=== PATIENT | female | born 1990 | race Caucasian/White ===

== ENCOUNTER 2016-11-21 17:38 | Inpatient (IN) | payer OTHER ==
[~2016-11-21] VITALS: Ht 165.1 cm; Wt 68.7 kg
[~2016-11-21 17:38] MED LIST: CLON0.5T3 PO; CMD5 PO; CRG125 PO; LSN5 PO; QUET1TAB34 PO
[2016-11-21] MEDS ORDERED: SODIUM CHLORIDE 0.9% 1000ML 2,000 ML IV STA (18:08)
[2016-11-21] MEDS ORDERED: CEFEPIME IV 2,000 MG in DEXTROSE 5% 100ML 100 ML IV STA (18:08)
[2016-11-21] MEDS ORDERED: VANCOMYCIN INJ 1,700 MG in SODIUM CHLORIDE 0.9% 500ML 500 ML IV STA (18:08)
[2016-11-21] MEDS ORDERED: FRS/40 PO (18:21)
--- NOTE | 2016-11-21 18:26 | EMERGENCY ROOM VISIT NOTE ---
History Report prepared by Domonique: Janey Rivas Under the Supervision of: Dr. Ty Roberson D.O. First contact with patient: 17:56 Chief Complaint: CHEST PAIN Stated Complaint: CHEST PAIN, SOB,DIZZY History of Present Illness The patient is a 26 year old female who presents to the Emergency Room with complaints of intermittent mid chest pain starting yesterday. She describes it to be a stabbing and pinching pain. She denies any activities that worsen or improve the pain. She also reports shortness of breath which occurs with the chest pain. She also started having shakiness, fever, chills, nausea, and vomiting yesterday. Pt denies headache, change in vision, cough, runny nose, abdominal pain, vaginal discharge, diarrhea, urinary symptoms, melena, and open wound/sores. She did not have her menstrual period for the past year. The patient was recently placed on a Z-pack by her PCP for possible URI. She still has one dose left. She has a history of about 10 episodes of fevers, chills, and shakiness occurring in the past 2 months. She denies any blood thinners. The patient had a surgery related to endocarditis in August 2016. She had a tricuspid valve repair in August 2016. She has a history of CHF. She is on Lasix. She also has a history of IV drug use. She had been injecting heroine and bath salts among other drugs. Her last drug use was in March/April 2016. Source of History: patient Onset: yesterday Position: chest (mid) Quality: stabbing, other (pinching) Timing: intermittent Associated Symptoms: + SOB, + chills, + fevers, + nausea, + vomiting, No cough, No diarrhea, No headache, No urinary symptoms Review of Systems See HPI for pertinent positives & negatives. A total of 10 systems reviewed and were otherwise negative. Past Medical & Surgical Medical Problems: (1) Drug withdrawal headache with perceptual disturbance (2) Heroin abuse (3) Hypotension (4) No Known Active Medical Problems (5) Right lower lobe pneumonia (6) SBE (subacute bacterial endocarditis) (7) Syncope Family History Patient reports no known family medical history. Social History Smoking Status: Never Smoker Drug Use: heroin Marital Status: single Housing Status: other Occupation Status: unemployed Current/Historical Medications Scheduled Furosemide (Lasix), 40 MG PO DAILY Quetiapine Fumarate (Seroquel), 100 MG PO QAM Quetiapine Fumarate (Seroquel), 200 MG PO HS Allergies Coded Allergies: No Known Allergies (Unverified , 11/21/16) Physical Exam Vital Signs Date Time Temp Pulse Resp B/P Pulse Ox O2 Delivery O2 Flow Rate FiO2 11/21/16 22:32 129 20 109/76 100 11/21/16 22:30 129 24 93/57 100 Nasal Cannula 2.0 11/21/16 21:13 125 20 124/57 99 Room Air 11/21/16 20:22 135 11/21/16 20:02 Nasal Cannula 3.0 11/21/16 20:00 144 24 129/74 98 Nasal Cannula 3.0 11/21/16 19:35 135 24 105/70 100 Nasal Cannula 3.0 11/21/16 19:30 127 21 97/68 100 Nasal Cannula 3.0 11/21/16 19:15 126 20 101/77 100 Nasal Cannula 3.0 11/21/16 19:00 125 15 112/60 100 Nasal Cannula 3.0 11/21/16 17:48 37.9 124 20 124/82 99 Room Air Physical Exam GENERAL: Sitting up in bed, shaking, chronically disheveled, fidgeting, unable to sit still. Yelling and cursing intermittently EYE EXAM: normal conjunctiva OROPHARYNX: no exudate, no erythema, lips, buccal mucosa, and tongue normal and mucous membranes are dry NECK: supple, no nuchal rigidity, no adenopathy, non-tender LUNGS: Clear to auscultation. Normal chest wall mechanics HEART: Tachycardic rate. S1 normal and S2 normal ABDOMEN: abdomen soft, non-tender, normo-active bowel sounds, no masses, no rebound or guarding. BACK: Back is symmetrical on inspection and there is no deformity, no midline tenderness, no CVA tenderness. SKIN: Bruising over the veins of left upper extremity and feet. No obvious petechiae noted. UPPER EXTREMITIES: upper extremities are grossly normal. LOWER EXTREMITIES: No pitting edema. NEURO EXAM: Normal sensorium, cranial nerves II-XII grossly intact, normal speech, no gross weakness of arms, no gross weakness of legs. Medical Decision & Procedures ER Provider Diagnostic Interpretation: Xray results per the radiologist and my interpretation. CHEST ONE VIEW PORTABLE CLINICAL HISTORY: fever dyspnea COMPARISON STUDY: 05/28/2016 FINDINGS: Interval median sternotomy. Mild cardia megaly. Minimal poorly defined parenchymal infiltrate left base. Lungs otherwise appear clear. Diaphragms smooth. IMPRESSION: Minimal parenchymal infiltrate left base. Electronically signed by: Jony Sky M.D. 11/21/2016 7:01 PM Dictated Date/Time: 11/21/2016 7:00 PM Laboratory Results 11/21/16 18:41 Red Blood Count 4.87, Mean Corpuscular Volume 86.9, Mean Corpuscular Hemoglobin 29.6, Mean Corpuscular Hemoglobin Concent 34.0, Mean Platelet Volume 11.4, Neutrophils (%) (Auto) 81.3, Lymphocytes (%) (Auto) 8.3, Monocytes (%) (Auto) 9.8, Eosinophils (%) (Auto) 0.1, Basophils (%) (Auto) 0.1, Neutrophils # (Auto) 8.77, Lymphocytes # (Auto) 0.90, Monocytes # (Auto) 1.06, Eosinophils # (Auto) 0.01, Basophils # (Auto) 0.01 11/21/16 18:41 Test 11/21/16 18:41 11/21/16 21:05 White Blood Count 10.79 K/uL (4.8-10.8) Red Blood Count 4.87 M/uL (4.2-5.4) Hemoglobin 14.4 g/dL (12.0-16.0) Hematocrit 42.3 % (37-47) Mean Corpuscular Volume 86.9 fL (80-100) Mean Corpuscular Hemoglobin 29.6 pg (25-34) Mean Corpuscular Hemoglobin Concent 34.0 g/dl (32-36) Platelet Count 148 K/uL (130-400) Mean Platelet Volume 11.4 fL (7.4-10.4) Neutrophils (%) (Auto) 81.3 % Lymphocytes (%) (Auto) 8.3 % Monocytes (%) (Auto) 9.8 % Eosinophils (%) (Auto) 0.1 % Basophils (%) (Auto) 0.1 % Neutrophils # (Auto) 8.77 K/uL (1.4-6.5) Lymphocytes # (Auto) 0.90 K/uL (1.2-3.4) Monocytes # (Auto) 1.06 K/uL (0.11-0.59) Eosinophils # (Auto) 0.01 K/uL (0-0.5) Basophils # (Auto) 0.01 K/uL (0-0.2) RDW Standard Deviation 52.1 fL (36.4-46.3) RDW Coefficient of Variation 16.3 % (11.5-14.5) Immature Granulocyte % (Auto) 0.4 % Immature Granulocyte # (Auto) 0.04 K/uL (0.00-0.02) Prothrombin Time 14.6 SECONDS (9.0-12.0) Prothromb Time International Ratio 1.3 (0.9-1.1) Anion Gap 14.0 mmol/L (3-11) Est Creatinine Clear Calc Drug Dose 157.8 ml/min Estimated GFR () > 150.0 Estimated GFR (Non- 132.0 BUN/Creatinine Ratio 14.0 (10-20) Calcium Level 9.1 mg/dl (8.5-10.1) Magnesium Level 1.5 mg/dl (1.8-2.4) Total Bilirubin 1.4 mg/dl (0.2-1) Direct Bilirubin 0.4 mg/dl (0-0.2) Aspartate Amino Transf (AST/SGOT) 21 U/L (15-37) Alanine Aminotransferase (ALT/SGPT) 20 U/L (12-78) Alkaline Phosphatase 121 U/L (45-117) Total Creatine Kinase 163 U/L (26-192) Creatine Kinase MB < 0.5 ng/ml (0.5-3.6) Creatine Kinase MB Ratio (0-3.0) Troponin I < 0.015 ng/ml (0-0.045) Total Protein 7.6 gm/dl (6.4-8.2) Albumin 3.7 gm/dl (3.4-5.0) Urine Color DK YELLOW Urine Appearance CLOUDY (CLEAR) Urine pH 6.0 (4.5-7.5) Urine Specific Ponder 1.018 (1.000-1.030) Urine Protein TRACE (NEG) Urine Glucose (UA) NEG (NEG) Urine Ketones 1+ (NEG) Urine Occult Blood 3+ (NEG) Urine Nitrite NEG (NEG) Urine Bilirubin NEG (NEG) Urine Urobilinogen NEG (NEG) Urine Leukocyte Esterase TRACE (NEG) Urine WBC (Auto) 1-5 /hpf (0-5) Urine RBC (Auto) >30 /hpf (0-4) Urine Hyaline Casts (Auto) 1-5 /lpf (0-5) Urine Epithelial Cells (Auto) >30 /lpf (0-5) Urine Bacteria (Auto) 1+ (NEG) Urine Yeast (Auto) PRESENT (NONE PRSENT) Laboratory results per my review. Medications Administered Medications (Trade) Dose Ordered Sig/Varun Route Start Time Stop Time Status Last Admin Dose Admin Sodium Chloride 2,000 ml @ 999 mls/hr Q2H1M STAT IV 11/21/16 18:08 11/21/16 20:09 DC 11/21/16 18:45 999 MLS/HR Vancomycin HCl 1700 mg/Sodium Chloride 534 ml @ 200 mls/hr ONE STAT IV 11/21/16 18:08 11/21/16 20:48 DC 11/21/16 19:14 200 MLS/HR Cefepime HCl/ Dextrose (Maxipime IV/D5 100ml) 112.5 ml @ 200 mls/hr NOW STAT IV 11/21/16 18:08 11/21/16 18:41 DC 11/21/16 19:15 200 MLS/HR Morphine Sulfate (MoRPHine SULFATE INJ) 6 mg NOW STAT IV 11/21/16 19:04 11/21/16 19:05 DC 11/21/16 19:14 6 MG Lorazepam (Ativan Tab) 0.5 mg NOW STAT SL 11/21/16 19:38 11/21/16 19:39 DC 11/21/16 19:43 0.5 MG Levofloxacin (Levaquin / D5W) 750 mg NOW STAT IV 11/21/16 19:54 11/21/16 19:55 DC 11/21/16 20:42 750 MG Lorazepam 1 mg 1 mg NOW STAT SL 11/21/16 19:54 11/21/16 19:55 DC 11/21/16 19:58 1 MG Magnesium Sulfate/ Prmx (Magnesium Sulfate/Premixed D5W) 100 ml @ 100 mls/hr Q1H IV 11/21/16 20:30 11/21/16 22:29 DC 11/21/16 22:27 100 MLS/HR Diphenhydramine HCl (Benadryl Inj) 50 mg NOW STAT IV 11/21/16 22:19 11/21/16 22:20 DC 11/21/16 22:25 50 MG Procedure Bedside Ultrasound showed no obvious pericardial effusion, IVC completely collapses on inspiration. ECG Indication: chest pain Rate (beats per minute): 124 Rhythm: sinus tachycardia Findings: other (nonspecific T wave abnormalities) Comparison ECG Date: May 29, 2016 Change: T wave abnormalities are new when compared to May 29, 2016. Repeat EKG showed sinus tachycardia, 123 beats per minute, normal axis, t wave inversion in the lateral leads. ED Course ED COURSE: Vital signs were reviewed and showed febrile, tachycardic. The patients medical record was reviewed The above diagnostic studies were performed and reviewed. ED treatments and interventions as stated above. 1755: The patient was evaluated in room A11B. A complete history and physical examination was performed. 1807: Cefepime HCl 2000 mg/Dextrose 112.5 ml @ 200 mls/hr IV, Vancomycin HCl 1700 mg/Sodium Chloride 534 ml @ 200 mls/hr IV, Sodium Chloride 2000 ml @ 999 mls/hr IV 1818: I discussed the patient's case with Dr. Rodriguez, vocational adviser with [facility]. 0: The patient is having difficult breathing. I discussed my findings with the patient and she understands and agrees with the treatment plan. Based on the patients age, coexisting illnesses, exam and lab findings the decision to treat as an inpatient was made. The patient remained stable while under my care. The patient will be evaluated for further management. 1929: The patient is complaining of pain with breathing. 1934: I discussed the patient's case [facility] 1936: Lost two IVs but currently still have one IV. When I recommended a central line, patient flipped out, started cursing and yelling. Patient is refusing a central line. 0: Patient declined IJ femoral and subclavian. 1951: Patient is hyperventilating. She declines any acute pain but complains of being anxious. 2019: Unable to get a PICC line on the left side, attempting on the right side. 2034: 18 tere in her right arm was successfully placed. 2154: IV site has blown. Attempted to reestablish additional IV sites in foot or arms which was unsuccessful. Suggested central line again. Patient states that if attempted she will sign out AMA. 2219: The patient has a rash on the arm where Levaquin was running. She declines any additional sticks/IV attempts. She will be given Benadryl. Patient is currently very agitated and hysterical. Benadryl Inj 50 mg IV. Medical Decision Differential diagnosis includes etiologies such as sepsis, UTI, pneumonia, metabolic, electrolyte abnormalities, cardiac sources, intracerebral event, toxicologic, neurologic, as well as others were entertained. Patient is a 26-year-old female previous IV drug user with a diagnosis of endocarditis that presents to the ER referred in by her primary care doctor for fevers, chills without defined source. She had her tricuspid valve repaired at [place] in August and since then has been doing well. She does complain of intermittent fevers, chills and shakes over the past several months for a total of about 10 times. CBC was unremarkable. BMP was unremarkable as well. Magnesium was slightly low 1.5. T bili and direct bili were slightly elevated 1.4/0.4. Troponin was negative. INR was 1.3. UA was contaminated with epithelial cells greater than 30. Chest x-ray shows enlarged heart with a questionable left lower lobe infiltrate. I discussed case cardiology upon arrival. They will perform an echo in the morning. Initially patient was tachycardic in the 130s. Sepsis alert was called upon presentation. IV team did establish 3 lines. 2 eventually blew. Following this we had one remaining and I recommended a central line; in the patient started yelling and cursing. She completed declined a central line at this time. She notes she has had them in the past and does not want them. Following this I recommended a PICC line/ midline. She was agreeable but after 2 attempts failed. They were able to establish an 18-gauge which eventually blew about an hour later. Following this we attempted to established. The patient became very tearful crying again declined a CBC and any additional attempts. She has already obtained 2 L normal saline along with vancomycin, cefepime and Levaquin. Patient at this time has been admitted to internal medicine. She is currently resting and B1. She was given multiple doses of Ativan for her agitation. She was also given Benadryl for possible reaction to Levaquin on her arm. Mom has been updated at bedside. She was slightly helpful in calming the patient down. I did perform a bedside ultrasound upon presentation which showed a collapsible IVC and no obvious large pericardial effusion. This is why I felt comfortable giving her 2 L normal saline in light of her history of heart failure and Lasix. Patient will need a echo and further evaluation from cardiology as an inpatient. Consults Time Called: 1811 Consulting Physician: Dr. Rodriguez, vocational adviser with [facility] Returned Call: [phone] I discussed the patient's case with Dr. Rodriguez, vocational adviser with [facility]. Additional Consults: Time Called: 1854 Consulted Physician: Dr. Stahl, from [facility] Returned Call: 1934 Additional Comments: I discussed the patient's case with Dr. Stahl, from [facility]. Impression Primary Impression: Sepsis Additional Impressions: Pulmonary infiltrate Questionable endocarditis Critical Care I have personally spent greater than 35 minutes of critical care time in the direct management of this patient. This includes bedside care, interpretation of diagnostic studies, and testing, discussion with consultants, patient, and family members, and other required patient management activities. This 35 minutes is in excess of all separately billable procedures. Scribe Attestation The scribe's documentation has been prepared under my direction and personally reviewed by me in its entirety. I confirm that the note above accurately reflects all work, treatment, procedures, and medical decision making performed by me. Departure Information Dispostion Being Evaluated By Hospitalist Referrals Wolf Kurtz M.D. (PCP) Patient Instructions My [facility] Problem Qualifiers Primary Impression: Sepsis Sepsis type: sepsis due to unspecified organism Qualified Codes: A41.9 - Sepsis, unspecified organism
--- NOTE | 2016-11-21 19:02 | DIAGNOSTIC IMAGING REPORT ---
CHEST ONE VIEW PORTABLE CLINICAL HISTORY: fever dyspnea COMPARISON STUDY: 05/28/2016 FINDINGS: Interval median sternotomy. Mild cardia megaly. Minimal poorly defined parenchymal infiltrate left base. Lungs otherwise appear clear. Diaphragms smooth. IMPRESSION: Minimal parenchymal infiltrate left base. Electronically signed by: Jony Sky M.D. 11/21/2016 7:01 PM Dictated Date/Time: 11/21/2016 7:00 PM
[2016-11-21] MEDS ORDERED: MoRPHine SULFATE 10 MG/ML CARP/VIAL IV STA (19:04)
[2016-11-21 19:05] LABS: BASO % 0.1 %; BASO ABS # 0.01 K/uL (0-0.2); COMPLETE YES; EOS % 0.1 %; HEMATOCRIT 42.3 % (37-47); IG% 0.4 %; LYMPH % 8.3 %; MEAN CELL VOLUME 86.9 fL (80-100); MEAN CORPUSCULAR HEMOGLOBIN 29.6 pg (25-34); MEAN PLATELET VOLUME 11.4 fL (7.4-10.4); MONO % 9.8 %; NEUT % 81.3 %; PLATELET COUNT 148 K/uL (130-400); RED BLOOD COUNT 4.87 M/uL (4.2-5.4); WHITE BLOOD COUNT 10.79 K/uL (4.8-10.8)
[2016-11-21 19:16] LABS: INR 1.3 (0.9-1.1); PROTHROMBIN TIME (PATIENT) 14.6 SECONDS (9.0-12.0)
[2016-11-21 19:36] LABS: ALT/SGPT 20 U/L (12-78); AST/SGOT 21 U/L (15-37); BLOOD UREA NITROGEN 7 mg/dl (7-18); CALCIUM 9.1 mg/dl (8.5-10.1); CARBON DIOXIDE 21 mmol/L (21-32); CHLORIDE 98 mmol/L (98-107); CREATININE 0.53 mg/dl (0.60-1.20); GLUCOSE 85 mg/dl (70-99); MAGNESIUM 1.5 mg/dl (1.8-2.4); POTASSIUM 3.5 mmol/L (3.5-5.1); SODIUM 133 mmol/L (136-145)
[2016-11-21] MEDS ORDERED: LORAZEPAM 0.5 MG TAB SL STA (19:38)
[2016-11-21 19:39] LABS: ALKALINE PHOSPHATASE 121 U/L (45-117)
[2016-11-21] MEDS ORDERED: LORAZEPAM 1 MG TAB SL STA (19:54)
[2016-11-21] MEDS ORDERED: LEVAQUIN 750MG / 150ML D5W IV STA (19:54)
[2016-11-21] MEDS ORDERED: ALUMINUM/MAGNESIUM/SIMETH (MAALOX MAX) 30 ML UDC PO PRN (21:15)
[2016-11-21] MEDS ORDERED: MAGNESIUM HYDROXIDE SUSP 30 ML UDC PO PRN (21:15)
[2016-11-21] MEDS ORDERED: MoRPHine SULFATE 2 MG/ML CARP IV PRN (21:15)
[2016-11-21] MEDS ORDERED: LORAZEPAM 2 MG/ML 1 ML VIAL IV PRN (21:15)
[2016-11-21] MEDS ORDERED: DiphenhydrAMINE HCL 50 MG/ML VIAL IV PRN (21:15)
[2016-11-21] MEDS ORDERED: ONDANSETRON INJ 2 MG/ML 2 ML VIAL IV PRN (21:15)
[2016-11-21] MEDS ORDERED: PROMETHAZINE HCL INJ 12.5 MG in SODIUM CHLORIDE 0.9% 50ML 50 ML IV PRN (21:15)
[2016-11-21] MEDS ORDERED: ZOLPIDEM TARTRATE 5 MG TAB PO PRN (21:15)
[2016-11-21] MEDS ORDERED: VANCOMYCIN CONSULT ACTIVE PRN (21:30)
[2016-11-21] MEDS: MAGNESIUM SULFATE 1GM / D5W 1 GM in PREMIXED IN D5W 100 ML IV SCH ×2 (21:30→22:27)
[2016-11-21 21:40] LABS: URINE APPEARANCE CLOUDY (CLEAR); URINE COLOR DK YELLOW; URINE EPITHELIAL CELL AUTO >30 /lpf (0-5); URINE NITRITE NEG (NEG); URINE SPECIFIC GRAVITY 1.018 (1.000-1.030); UROBILINOGEN NEG (NEG); ZZUR CULT IF INDIC CLEAN CATCH YES
[2016-11-21 21:42] LABS: MANUAL MICROSCOPIC REQUIRED? NO; REVIEW REQ? YES; URINE BILIRUBIN NEG (NEG)
[2016-11-21] MEDS ORDERED: DiphenhydrAMINE HCL 50 MG/ML VIAL IV STA (22:19)
[2016-11-22] VITALS (8 sets, daily range): BP systolic 90–122; BP diastolic 52–69; PULSE 75–128; TEMP 36.3–38.2; O2SAT 95–100; Ht 165.1 cm; Wt 68.7 kg
[2016-11-22] MEDS: QUETIAPINE FUMARATE 200 MG TAB PO SCH ×2 (00:31→20:34)
[2016-11-22] MEDS: VANCOMYCIN INJ 1,000 MG in SODIUM CHLORIDE 0.9% 250ML 250 ML IV SCH ×4 (02:41→21:47)
--- NOTE | 2016-11-22 03:14 | History and Physical ---
History & Physical Date & Time of Service: Nov 22, 2016 at 02:59 Chief Complaint: SBE Primary Care Physician: Wolf Kurtz M.D. History of Present Illness Source: patient The patient is a 26-year-old female who presents to the emergency department with complaint of intermittent mid substernal stabbing and pinching chest pain and shortness of breath that started yesterday. She has also started to have fevers, chills, nausea and vomiting and shakes since yesterday as well. She has 1 dose left of the Z-César started by her PCP recently. She reports approximately 10 episodes of fevers, chills and shakes over the past 2 months. 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 She has a known history of IV drug use, involving heroin and bath salts and other drugs as well. She reports her last or use was in April 2016. She also has history of CHF for which she takes Lasix. Family History Patient reports no known family medical history. Social History Smoking Status: Current Every Day Smoker Smokeless Tobacco Use: No Alcohol Use: none Drug Use: heroin, other (bath salts and other drugs.) Marital Status: single Housing status: other Occupational Status: unemployed Multi-Drug Resistant Organisms History of MDRO: No Allergies Coded Allergies: No Known Allergies (Unverified , 11/21/16) Home Medications Scheduled Furosemide (Lasix), 40 MG PO DAILY Quetiapine Fumarate (Seroquel), 100 MG PO QAM Quetiapine Fumarate (Seroquel), 200 MG PO HS Review of Systems The patient denies lower extremity swelling, vision change, hearing change, sore throat, blood in urine or stool, dysuria, urinary frequency or urgency, memory loss, rash, abnormal bruising or bleeding, imbalance, focal or generalized weakness, numbness or tingling in arms or legs, back or neck pain, night sweats, or allergy symptoms. The review of systems is otherwise negative other than for that already noted above, and at least 10 systems have been reviewed. Physical Exam Vital Signs Date Time Temp Pulse Resp B/P Pulse Ox O2 Delivery O2 Flow Rate FiO2 11/22/16 00:52 37.5 122 22 101/61 98 Nasal Cannula 2.0 11/22/16 00:43 37.6 135 20 109/51 100 11/22/16 00:04 127 11/21/16 22:32 129 20 109/76 100 11/21/16 22:30 129 24 93/57 100 Nasal Cannula 2.0 11/21/16 21:13 125 20 124/57 99 Room Air 11/21/16 20:22 135 11/21/16 20:02 Nasal Cannula 3.0 11/21/16 20:00 144 24 129/74 98 Nasal Cannula 3.0 11/21/16 19:35 135 24 105/70 100 Nasal Cannula 3.0 11/21/16 19:30 127 21 97/68 100 Nasal Cannula 3.0 11/21/16 19:15 126 20 101/77 100 Nasal Cannula 3.0 11/21/16 19:00 125 15 112/60 100 Nasal Cannula 3.0 11/21/16 17:48 37.9 124 20 124/82 99 Room Air The patient is awake, alert and oriented 3, normocephalic and atraumatic, lying in bed and in no acute distress. She intermittently becomes agitated and anxious and hyperventilating while in the ED. HEENT--PERRL, EOMI, mucous membranes and oropharynx dry. Neck--supple, no JVD or bruits, thyroid normal, trachea midline, no adenopathy. Heart-- tachycardic and regular, 3/6 systolic murmur, no rubs or gallops. Lungs--diminished throughout, no respiratory distress, no accessory muscle use. Abdomen--normal bowel sounds and soft, nontender and nondistended, no hernias or masses, no organomegaly. Extremities--no cyanosis, clubbing or edema. There are good distal pulses b/l. Dermatologic--numerous track gee noted on upper extremities bilaterally. Neurologic--cranial nerves II through XII grossly intact, motor and sensory examination normal. Rheumatologic--normal range of motion, nontender, muscles and joints. Psychiatric--intermittently anxious and agitated affect, in particular became fearful when approached the idea of a central venous access due to concerns regarding pain. Diagnostics Laboratory Results Results Past 24 Hours Test 11/21/16 18:41 11/21/16 21:05 Range/Units White Blood Count 10.79 4.8-10.8 K/uL Red Blood Count 4.87 4.2-5.4 M/uL Hemoglobin 14.4 12.0-16.0 g/dL Hematocrit 42.3 37-47 % Mean Corpuscular Volume 86.9 80-100 fL Mean Corpuscular Hemoglobin 29.6 25-34 pg Mean Corpuscular Hemoglobin Concent 34.0 32-36 g/dl Platelet Count 148 130-400 K/uL Mean Platelet Volume 11.4 7.4-10.4 fL Neutrophils (%) (Auto) 81.3 % Lymphocytes (%) (Auto) 8.3 % Monocytes (%) (Auto) 9.8 % Eosinophils (%) (Auto) 0.1 % Basophils (%) (Auto) 0.1 % Neutrophils # (Auto) 8.77 1.4-6.5 K/uL Lymphocytes # (Auto) 0.90 1.2-3.4 K/uL Monocytes # (Auto) 1.06 0.11-0.59 K/uL Eosinophils # (Auto) 0.01 0-0.5 K/uL Basophils # (Auto) 0.01 0-0.2 K/uL RDW Standard Deviation 52.1 36.4-46.3 fL RDW Coefficient of Variation 16.3 11.5-14.5 % Immature Granulocyte % (Auto) 0.4 % Immature Granulocyte # (Auto) 0.04 0.00-0.02 K/uL Erythrocyte Sedimentation Rate 28 0-21 mm/hr Prothrombin Time 14.6 9.0-12.0 SECONDS Prothromb Time International Ratio 1.3 0.9-1.1 Sodium Level 133 136-145 mmol/L Potassium Level 3.5 3.5-5.1 mmol/L Chloride Level 98 98-107 mmol/L Carbon Dioxide Level 21 21-32 mmol/L Anion Gap 14.0 3-11 mmol/L Blood Urea Nitrogen 7 7-18 mg/dl Creatinine 0.53 0.60-1.20 mg/dl Est Creatinine Clear Calc Drug Dose 157.8 ml/min Estimated GFR () > 150.0 Estimated GFR (Non- 132.0 BUN/Creatinine Ratio 14.0 10-20 Random Glucose 85 70-99 mg/dl Calcium Level 9.1 8.5-10.1 mg/dl Magnesium Level 1.5 1.8-2.4 mg/dl Total Bilirubin 1.4 0.2-1 mg/dl Direct Bilirubin 0.4 0-0.2 mg/dl Aspartate Amino Transf (AST/SGOT) 21 15-37 U/L Alanine Aminotransferase (ALT/SGPT) 20 12-78 U/L Alkaline Phosphatase 121 45-117 U/L Total Creatine Kinase 163 26-192 U/L Creatine Kinase MB < 0.5 0.5-3.6 ng/ml Creatine Kinase MB Ratio 0-3.0 Troponin I < 0.015 0-0.045 ng/ml C-Reactive Protein 4.21 0-0.29 mg/dl Total Protein 7.6 6.4-8.2 gm/dl Albumin 3.7 3.4-5.0 gm/dl Urine Color DK YELLOW Urine Appearance CLOUDY CLEAR Urine pH 6.0 4.5-7.5 Urine Specific [place] 1.018 1.000-1.030 Urine Protein TRACE NEG Urine Glucose (UA) NEG NEG Urine Ketones 1+ NEG Urine Occult Blood 3+ NEG Urine Nitrite NEG NEG Urine Bilirubin NEG NEG Urine Urobilinogen NEG NEG Urine Leukocyte Esterase TRACE NEG Urine WBC (Auto) 1-5 0-5 /hpf Urine RBC (Auto) >30 0-4 /hpf Urine Hyaline Casts (Auto) 1-5 0-5 /lpf Urine Epithelial Cells (Auto) >30 0-5 /lpf Urine Bacteria (Auto) 1+ NEG Urine Yeast (Auto) PRESENT NONE PRSENT Microbiology Results 11/21/16 Blood Culture, Received Pending 11/21/16 Blood Culture, Received Pending 11/21/16 Blood Culture, Received Pending 11/21/16 Urine Culture, Received Pending Diagnostic Radiology Patient Name: BRYSON RIVERO Unit Number: [id number] Dictated: 11/21/161899 Transcribed: 11/21/161899 MS Printed Date/Time: [~ rep prt dt]/[~ rep prt tm] [~ rep ct labl] - [~ rep ct ivnm] [facility] [place] [address] Dictated: 11/21/161899 Transcribed: 11/21/161899 MS Printed Date/Time: [~ rep prt dt]/[~ rep prt tm] [~ rep ct labl] - [~ rep ct ivnm] CHEST ONE VIEW PORTABLE CLINICAL HISTORY: fever dyspnea COMPARISON STUDY: 05/28/2016 FINDINGS: Interval median sternotomy. Mild cardia megaly. Minimal poorly defined parenchymal infiltrate left base. Lungs otherwise appear clear. Diaphragms smooth. IMPRESSION: Minimal parenchymal infiltrate left base. Electronically signed by: Jony Sky M.D. 11/21/2016 7:01 PM Dictated Date/Time: 11/21/2016 7:00 PM The status of this report is Signed. Draft = Not yet reviewed or approved by Radiologist. Signed = Reviewed and approved by Radiologist. <AttendingPhy></AttendingPhy> <FamilyPhy>Wolf Kurtz M.D.</FamilyPhy> < PrimaryPhy>Wolf Kurtz M.D.</PrimaryPhy> <UnitNumber>[id number]</UnitNumber > <VisitNumber>[id number]</VisitNumber> <PatientName>BRYSON RIVERO</ PatientName> <DateOfBirth>1990</DateOfBirth> <Location>C.EDB</Location> < ServiceDate>11/21/16</ServiceDate> <MNE>ESINDI</MNE> <OrderingPhy>Ty Roberson DO</OrderingPhy> <OrderingPhyMNE>f rep ord dr bermudez</OrderingPhyMNE> < DictatingPhyMNE>f rep dict dr bermudez</DictatingPhyMNE> <CCListMNE>f rep ct lara</ CCListMNE> <AdmittingPhyMNE>f pt admit dr bermudez</AdmittingPhyMNE> <AttendingPhyMNE >f pt attend dr bermudez</AttendingPhyMNE> <ConsultingPhyMNE>f pt consult dr bermudez</ConsultingPhyMNE> <FamilyPhyMNE>f pt fam dr bermudez</FamilyPhyMNE> <OtherPhyMNE>f pt other dr bermudez</OtherPhyMNE> < PrimaryPhyMNE>f pt prim care dr bermudez</PrimaryPhyMNE> <ReferringPhyMNE>f pt referring dr bermudez</ReferringPhyMNE> EKG EKG shows sinus tachycardia at 124 bpm, increased left atrial size, nonspecific inferior lateral ST-T changes. Impression Assessment and Plan Presumptive SBE--the patient will be admitted to the telemetry unit. She was started on vancomycin IV per renal dosing, cefepime 2 g IV every 8 hours, and levofloxacin 750mg IV every 24 hours. Follow blood culture and sensitivity reports. We'll consult cardiology as patient will need a BANDAR, and in the interim we'll order a 2-D echocardiogram with Dopplers. CHF history--hold Lasix 40 mg by mouth daily, and place on normal saline with potassium chloride 20 mEq at 100 ML's per hour. We'll follow serial PRP and magnesium levels. Psychiatric--continue Seroquel 100 mg by mouth every morning and 200 mg by mouth at bedtime. Heroine/bath salts and other drug abuse--patient reports her last usage was April 2016. 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 Y/N: Yes Risk Level: Moderate Given or contraindicated: SCD's
[2016-11-22] MEDS: ACETAMINOPHEN 325 MG TAB PO PRN (03:37)
[2016-11-22] MEDS: NSS + 20MEQ KCL 1000ML 1,000 ML IV SCH ×2 (03:39→14:13)
[2016-11-22] MEDS: CEFEPIME IV 2,000 MG in DEXTROSE 5% 100ML 100 ML IV SCH ×3 (05:22→20:04)
[2016-11-22] MEDS: LORAZEPAM 2 MG/ML 1 ML VIAL IV PRN ×4 (07:48→21:39)
[2016-11-22] MEDS: QUETIAPINE FUMARATE 100 MG TAB PO SCH (07:49)
[2016-11-22] MEDS: MoRPHine SULFATE 4 MG/ML 1 ML CARP\\VIAL IV PRN ×3 (07:49→19:14)
[2016-11-22] MEDS ORDERED: INFLUENZA ADMINISTRATION CHARGE ONE (08:00)
[2016-11-22] MEDS ORDERED: INFLUENZA VIRUS QUAD VACCINE 0.5 ML SYR IM. ONE (08:00)
[2016-11-22 10:20] LABS: INR 1.4 (0.9-1.1); PARTIAL THROMBOPLASTIN RATIO 1.1; PROTHROMBIN TIME (PATIENT) 15.1 SECONDS (9.0-12.0)
[2016-11-22 10:32] LABS: BASO % 0.2 %; BASO ABS # 0.01 K/uL (0-0.2); COMPLETE YES; EOS % 0.6 %; LYMPH % 20.2 %; LYMPH ABS # 0.94 K/uL (1.2-3.4); MEAN CELL VOLUME 90.2 fL (80-100); MEAN CORPUSCULAR HEMOGLOBIN 29.3 pg (25-34); MEAN CORPUSCULAR HGB CONC 32.4 g/dl (32-36); MEAN PLATELET VOLUME 11.4 fL (7.4-10.4); MONO % 12.3 %; NEUT % 66.7 %; PLATELET COUNT 108 K/uL (130-400); WHITE BLOOD COUNT 4.65 K/uL (4.8-10.8)
[2016-11-22 10:37] LABS: BLOOD UREA NITROGEN 4 mg/dl (7-18); BUN/CREATININE RATIO 9.6 (10-20); CALCIUM 8.2 mg/dl (8.5-10.1); CARBON DIOXIDE 25 mmol/L (21-32); CHLORIDE 107 mmol/L (98-107); CREATININE 0.43 mg/dl (0.60-1.20); GLUCOSE 82 mg/dl (70-99); POTASSIUM 3.2 mmol/L (3.5-5.1); SODIUM 141 mmol/L (136-145)
--- NOTE | 2016-11-22 11:57 | Progress Note ---
Subjective Date of Service: Nov 22, 2016. Subjective Pt evaluation today including: conversation w/ patient, conversation w/ family , physical exam, chart review, lab review, review of studies, review of inpatient medication list Voiding: no voiding problems Very lethargic, however she awake and talk for me , orientated to name, BD and place, she agreed for me to talked to her boyfriend in bedside about her medical conditions No special complaint, Problem List Medical Problems: (1) Left sided chest pain Status: Acute (2) Pneumonia Status: Acute (3) Precordial chest pain Status: Acute (4) Pulmonary infiltrate Status: Acute (5) Sepsis Status: Acute (6) Withdrawal symptoms, drug or narcotic Status: Acute Review of Systems Constitutional: + fatigue, + weakness Respiratory: No cough, No dyspnea at rest, No dyspnea on exertion, No hemoptysis, No problem reported, No see HPI, No shortness of breath, No sputum, No wheezing Cardiac: No PND, No chest pain, No claudication, No edema, No orthopnea, No palpitations, No problem reported, No see HPI Abdomen: + nausea, No GI bleeding, No constipation, No diarrhea, No problem reported, No see HPI, No vomiting Female : No abnormal vaginal bleeding, No dysuria, No hematuria, No incontinence, No problem reported, No see HPI, No urinary frequency, No vaginal discharge Neurologic: No balance problems, No memory loss, No numbness/tingling, No paralysis, No problem reported, No see HPI, No vertigo, No weakness Psychiatric: + substance abuse Skin: No bleeding, No color change, No itch, No new/changing skin lesions, No problem reported, No rash, No see HPI Objective Vital Signs Date Time Temp Pulse Resp B/P Pulse Ox O2 Delivery O2 Flow Rate FiO2 11/22/16 11:19 36.6 75 18 122/69 99 11/22/16 08:10 36.9 81 18 90/52 98 11/22/16 08:00 Nasal Cannula 2.0 11/22/16 05:22 37.4 11/22/16 04:02 Nasal Cannula 2.0 11/22/16 03:30 38.2 113 16 99/53 100 Nasal Cannula 2.0 11/22/16 00:52 37.5 122 22 101/61 98 Nasal Cannula 2.0 11/22/16 00:43 37.6 135 20 109/51 100 11/22/16 00:04 127 11/21/16 22:32 129 20 109/76 100 11/21/16 22:30 129 24 93/57 100 Nasal Cannula 2.0 11/21/16 21:13 125 20 124/57 99 Room Air 11/21/16 20:22 135 11/21/16 20:02 Nasal Cannula 3.0 11/21/16 20:00 144 24 129/74 98 Nasal Cannula 3.0 11/21/16 19:35 135 24 105/70 100 Nasal Cannula 3.0 11/21/16 19:30 127 21 97/68 100 Nasal Cannula 3.0 11/21/16 19:15 126 20 101/77 100 Nasal Cannula 3.0 11/21/16 19:00 125 15 112/60 100 Nasal Cannula 3.0 11/21/16 17:48 37.9 124 20 124/82 99 Room Air Physical Exam General Appearance: WD/WN, no apparent distress, + pertinent finding (lethargic , much older than her age,) Eyes: normal inspection, PERRL, EOMI, sclerae normal ENT: normal ENT inspection, hearing grossly normal, pharynx normal Neck: supple, no adenopathy, thyroid normal, no JVD, no carotid bruits, trachea midline Respiratory/Chest: chest non-tender, normal breath sounds, no respiratory distress, no accessory muscle use, + decreased breath sounds Cardiovascular: regular rate, rhythm, no edema, no gallop, no JVD, no murmur Abdomen: normal bowel sounds, non tender, soft, no organomegaly, no pulsatile mass Extremities: normal range of motion, non-tender, normal inspection, no pedal edema, no calf tenderness, normal capillary refill, pelvis stable 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, no motor/sensory deficits, alert, normal mood/affect Skin: normal color, warm/dry, no rash, + pertinent finding (no obvious track gee) Lymphatic: no adenopathy Laboratory Results Last 24 Hours Test 11/21/16 18:41 11/21/16 21:05 11/22/16 10:00 11/22/16 11:12 White Blood Count 10.79 K/uL 4.65 K/uL Red Blood Count 4.87 M/uL 4.10 M/uL Hemoglobin 14.4 g/dL 12.0 g/dL Hematocrit 42.3 % 37.0 % Mean Corpuscular Volume 86.9 fL 90.2 fL Mean Corpuscular Hemoglobin 29.6 pg 29.3 pg Mean Corpuscular Hemoglobin Concent 34.0 g/dl 32.4 g/dl Platelet Count 148 K/uL 108 K/uL Mean Platelet Volume 11.4 fL 11.4 fL Neutrophils (%) (Auto) 81.3 % 66.7 % Lymphocytes (%) (Auto) 8.3 % 20.2 % Monocytes (%) (Auto) 9.8 % 12.3 % Eosinophils (%) (Auto) 0.1 % 0.6 % Basophils (%) (Auto) 0.1 % 0.2 % Neutrophils # (Auto) 8.77 K/uL 3.10 K/uL Lymphocytes # (Auto) 0.90 K/uL 0.94 K/uL Monocytes # (Auto) 1.06 K/uL 0.57 K/uL Eosinophils # (Auto) 0.01 K/uL 0.03 K/uL Basophils # (Auto) 0.01 K/uL 0.01 K/uL RDW Standard Deviation 52.1 fL 55.4 fL RDW Coefficient of Variation 16.3 % 16.6 % Immature Granulocyte % (Auto) 0.4 % 0.0 % Immature Granulocyte # (Auto) 0.04 K/uL 0.00 K/uL Erythrocyte Sedimentation Rate 28 mm/hr Prothrombin Time 14.6 SECONDS 15.1 SECONDS Prothromb Time International Ratio 1.3 1.4 Sodium Level 133 mmol/L 141 mmol/L Potassium Level 3.5 mmol/L 3.2 mmol/L Chloride Level 98 mmol/L 107 mmol/L Carbon Dioxide Level 21 mmol/L 25 mmol/L Anion Gap 14.0 mmol/L 9.0 mmol/L Blood Urea Nitrogen 7 mg/dl 4 mg/dl Creatinine 0.53 mg/dl 0.43 mg/dl Est Creatinine Clear Calc Drug Dose 157.8 ml/min 180.0 ml/min Estimated GFR () > 150.0 > 150.0 Estimated GFR (Non- 132.0 141.4 BUN/Creatinine Ratio 14.0 9.6 Random Glucose 85 mg/dl 82 mg/dl Calcium Level 9.1 mg/dl 8.2 mg/dl Magnesium Level 1.5 mg/dl 2.0 mg/dl Total Bilirubin 1.4 mg/dl Direct Bilirubin 0.4 mg/dl Aspartate Amino Transf (AST/SGOT) 21 U/L Alanine Aminotransferase (ALT/SGPT) 20 U/L Alkaline Phosphatase 121 U/L Total Creatine Kinase 163 U/L Creatine Kinase MB < 0.5 ng/ml Creatine Kinase MB Ratio Troponin I < 0.015 ng/ml C-Reactive Protein 4.21 mg/dl Total Protein 7.6 gm/dl Albumin 3.7 gm/dl Urine Color DK YELLOW Urine Appearance CLOUDY Urine pH 6.0 Urine Specific [place] 1.018 Urine Protein TRACE Urine Glucose (UA) NEG Urine Ketones 1+ Urine Occult Blood 3+ Urine Nitrite NEG Urine Bilirubin NEG Urine Urobilinogen NEG Urine Leukocyte Esterase TRACE Urine WBC (Auto) 1-5 /hpf Urine RBC (Auto) >30 /hpf Urine Hyaline Casts (Auto) 1-5 /lpf Urine Epithelial Cells (Auto) >30 /lpf Urine Bacteria (Auto) 1+ Urine Yeast (Auto) PRESENT Activated Partial Thromboplast Time 28.1 SECONDS Partial Thromboplastin Ratio 1.1 Bedside Glucose 86 mg/dl Assessment and Plan 26-year-old female admitted on 11/21/2016 because of fever IV drug abuse, and possible sepsis with intermittent mid substernal stabbing and pinching chest pain and shortness of breath Gram-positive bacteremia with sepsis with fevers, chills, nausea and vomiting and shakes upon admit , need to rule out SBE History of endocarditis in August 2016 and underwent a tricuspid valve replacement at [facility]. Known history of IV drug use, involving heroin and bath salts and other drugs last or use was in April 2016. history of CHF for which she takes Lasix. Continue vancomycin IV per renal dosing, cefepime 2 g IV every 8 hours, and levofloxacin 750mg IV every 24 hours. consulted cardiology as patient will need a BANDAR, and in the interim we'll order a 2-D echocardiogram with Dopplers. CHF hx, compensated do not see any decompensation, continue current care of Lasix, Hypokinemia replace potassium Drug abuse and addiction disorder, continue Seroquel 100 mg by mouth every morning and 200 mg by mouth at bedtime. Possible Critical ill GI and DVT prophylaxis covered Continued [facility] stay due to: multiple IV medications needed Discharge planning: uncertain
--- NOTE | 2016-11-22 12:30 | ECHOCARDIOGRAM REPORT ---
*NOTICE TO RECEIVING [employer]Y This information is strictly Confidential and protected under [place] law. [place] law prohibits you from making any further disclosure of this information unless further disclosure is expressly permitted by the written consent of the person to whom it pertains or is authorized by law. A general authorization for the release of medical or other information is not sufficient for this purpose. Hospital accepts no responsibility if the information is made available to any other person, INCLUDING THE PATIENT. Interpretation Summary * Name: BRYSON RIVERO [id number] Study Date: 11/22/2016 11:31 AM BP: 122/69 mmHg * Patient Location: [facility] HR: 75 * : 1990 (M/d/yyyy) Gender: Female Height: 65 in * Age: 26 yrs Ethnicity: CA Weight: 151 lb * Ordering Physician: Cameron Peguero DO, [facility] * Referring Physician: Wolf Kurtz * Performed By: Yessenia Sinha * * Reason For Study: ENDOCARDITIS, FEVER, SOB * BSA: 1.8 m2 * -- Conclusions -- * No obvious vegetations on the visualized valves. * There is nonmobile thickening in the area of the previous * tricuspid valve repair. * The left ventricular wall motion is normal. * Ejection Fraction = 50-55%. * The right ventricle is moderately dilated. * The right ventricular systolic function is moderately reduced. * There is severe tricuspid regurgitation. * There is a trace loculated pericardial effusion adjacent to the right atrium. * There are no echocardiographic indications of cardiac tamponade. * Images were compared directly to those obtained at time of prior study dated 10/28/16 performed at [facility]. * The tricuspid valve appearance is unchanged. * There has been an interval improvement in the noted small to medium pericardial effusion noted on the prior study. * There has been interval resolution of a large left pleural effusion noted on the prior study. Procedure Details * A complete two-dimensional transthoracic echocardiogram was performed (2D, M-mode, Doppler and color flow Doppler). Left Ventricle * The left ventricle is normal in size. * There is normal left ventricular wall thickness. * Left ventricular systolic function is normal. * Ejection Fraction = 50-55%. * The left ventricular wall motion is normal. Right Ventricle * The right ventricle is moderately dilated. * The right ventricular systolic function is moderately reduced. Atria * The left atrial size is normal. * The right atrium is moderately dilated. * There is no evidence of atrial septal defect, but resolution does not allow assessment for a patent foramen ovale. Mitral Valve * The mitral valve is normal. * There is no mitral valve stenosis. * Significant mitral regurgitation is absent. Tricuspid Valve * There is evidence of previous tricuspid valve repair. There is nonmobile thickening in the area of the previous tricuspid valve repair without evidence of vegetation. * There is severe tricuspid regurgitation. * Doppler findings do not suggest pulmonary hypertension. Aortic Valve * The aortic valve is trileaflet. * Aortic stenosis is absent. * There is no significant aortic regurgitation. Pulmonic Valve * The pulmonary valve is not well seen, but the Doppler examination is normal without significant regurgitation or stenosis. Great Vessels * The aortic root and proximal ascending aorta are normal sized. Pericardium/Pleural * There is a trace loculated pericardial effusion adjacent to the right atrium. * There are no echocardiographic indications of cardiac tamponade. Great Vessels * Normal inferior vena cava diameter and respiratory variation suggests normal central venous pressure. * Normal inferior vena cava size and collapsability with sniff indicates a normal right atrial pressure of 3 mmHg Left Ventricular Diastolic Function * The LV diastolic function is normal. MMode 2D Measurements and Calculations IVSd 1.2 cm IVSs 1.3 cm LVIDd 5.0 cm LVIDs 3.2 cm LVPWd 0.85 cm LVPWs 2.1 cm IVS/LVPW 1.4 FS 35.6 % EDV(Teich) 117.3 ml ESV(Teich) 41.2 ml EF(Teich) 64.9 % EDV(cubed) 123.7 ml ESV(cubed) 33.0 ml EF(cubed) 73.3 % % IVS thick 6.0 % % LVPW thick 152.9 % LV mass(C)d 188.2 grams LV mass(C)dI 107.2 grams/m\S\2 LV mass(C)s 216.3 grams LV mass(C)sI 123.2 grams/m\S\2 SV(Teich) 76.1 ml SI(Teich) 43.4 ml/m\S\2 SV(cubed) 90.7 ml SI(cubed) 51.7 ml/m\S\2 ACS 1.4 cm LA dimension 3.5 cm asc Aorta Diam 2.3 cm LVOT diam 1.9 cm LVOT area 3.0 cm\S\2 LVAd ap4 27.0 cm\S\2 LVLd ap4 6.9 cm EDV(MOD-sp4) 90.7 ml EDV(sp4-el) 90.2 ml LVAs ap4 14.3 cm\S\2 LVLs ap4 5.7 cm ESV(MOD-sp4) 30.9 ml ESV(sp4-el) 30.9 ml EF(MOD-sp4) 66.0 % EF(sp4-el) 65.8 % LVAd ap2 25.0 cm\S\2 LVLd ap2 6.7 cm EDV(MOD-sp2) 79.4 ml EDV(sp2-el) 79.1 ml LVAs ap2 12.7 cm\S\2 LVLs ap2 5.5 cm ESV(MOD-sp2) 25.4 ml ESV(sp2-el) 24.8 ml EF(MOD-sp2) 68.0 % EF(sp2-el) 68.7 % LVLd %diff -2.35 % EDV(MOD-bp) 84.6 ml LVLs %diff -2.54 % ESV(MOD-bp) 28.0 ml EF(MOD-bp) 66.9 % SV(MOD-sp4) 59.9 ml SI(MOD-sp4) 34.1 ml/m\S\2 SV(MOD-sp2) 54.0 ml SI(MOD-sp2) 30.8 ml/m\S\2 SV(MOD-bp) 56.6 ml SI(MOD-bp) 32.3 ml/m\S\2 SV(sp4-el) 59.4 ml SI(sp4-el) 33.8 ml/m\S\2 SV(sp2-el) 54.3 ml SI(sp2-el) 31.0 ml/m\S\2 Doppler Measurements and Calculations MV E max nikhil 73.4 cm/sec MV dec time 0.18 sec Ao V2 max 132.7 cm/sec Ao max PG 7.0 mmHg Ao max PG (full) 2.2 mmHg CARLEY(V,A) 2.5 cm\S\2 CARLEY(V,D) 2.5 cm\S\2 LV V1 max PG 4.8 mmHg LV V1 mean PG 2.5 mmHg LV V1 max 109.7 cm/sec LV V1 mean 73.4 cm/sec LV V1 VTI 21.9 cm SV(LVOT) 65.5 ml SI(LVOT) 37.3 ml/m\S\2 PA V2 max 78.5 cm/sec PA max PG 2.5 mmHg PI end-d nikhil 131.3 cm/sec TR max nikhil 235.4 cm/sec
[2016-11-22] MEDS: POTASSIUM CHLR 10 MEQ / WTR 10 MEQ in PREMIXED WATER 100 ML IV SCH ×2 (12:59→15:57)
[2016-11-22] MEDS ORDERED: VANCOMYCIN TROUGH SCH (13:30)
--- NOTE | 2016-11-22 14:45 | Progress Note ---
Progress Note ID Consult Dictated #[id number] A/P: 1. GPC sepsis with h/o IE/ IVDA and TV repair at [facility] 2. Pericardial effusion 3. Fever -Repeat blood cultures, await ID gpc -BANDAR pending -Continue abx for now -UDS -low threshold for transfer -thank you
--- NOTE | 2016-11-22 15:05 | INFECT. DISEASE CONSULTATION ---
DATE OF CONSULTATION: 11/22/2016 DATE OF CONSULTATION: 11/22/2016. REQUESTING PHYSICIAN: Dr. Santos. HISTORY OF PRESENT ILLNESS: This is a 26-year-old female who was admitted after she had a sudden onset of substernal chest pain associated with shortness of breath that began 1 day prior to admission. She also complained of subjective fevers and chills prior to admission. Her T-max since admission is 38.2 degrees. She was seen by her PCP for these symptoms and given Z-CHRISTIAN; however, she had no significant relief in 1 day and subsequently presented to the Emergency Room. She was placed empirically on levofloxacin, cefepime and vancomycin. 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 At that time, she was transferred to [facility] and underwent a repair of her tricuspid valve. I do not see any blood cultures from that time. However, blood cultures were obtained in the Emergency Room last night and are now growing gram positive cocci in 3/3 sets. She is currently afebrile and appears to be tolerating antibiotics well. She does have a history of IV drug abuse. A urine drug screen was not performed on this admission; however per the H\T\P her last drug use was April of 2016. I do not know if she is on any outpatient antibiotic regimen. On my examination today, she is lethargic and I am unable to arouse her for review of systems. She does appear comfortable. She currently is afebrile. She did have a transthoracic echocardiogram done on this admission which showed a loculated pericardial effusion without tamponade and thickened tricuspid valve repair with severe tricuspid regurgitation. No clear vegetation was identified. A BANDAR is pending. She did have an initial leukocytosis of 10, which has improved to 4.6. Her sed rate is mildly elevated at 28. PAST MEDICAL HISTORY: Significant for infectious endocarditis in August 2016 resulting in tricuspid valve repair. FAMILY HISTORY: Noncontributory. SOCIAL HISTORY: Significant for tobacco use, heroin use, bath salts and additional illegal drugs. There is no history of alcohol use. ALLERGIES: She has no known drug allergies. MEDICATIONS: Include Protonix, subQ heparin, levofloxacin, Seroquel, cefepime, vancomycin, lorazepam, Tylenol, milk of magnesia, Benadryl, Maalox, Ambien, Zofran, morphine. PHYSICAL EXAMINATION: VITAL SIGNS: T-max is 38.2, current temperature is 36.6, pulse 75, respiratory rate 18, blood pressure 122/69, oxygen saturation is 99% on 2 liters. GENERAL: She is lethargic and unarousable on my examination. It is unclear when she last had any pain medication; however she was lethargic earlier today. HEART: Regular. ABDOMEN: Nondistended. There is no edema bilaterally. SKIN: Without rash. LUNGS: Clear bilaterally. LABORATORY STUDIES: CBC today reveals a white blood cell count of 4.6, hemoglobin 12, hematocrit 37, platelets are 108. The sed rate is 28 in the ER yesterday. Chemistry panel today reveals a sodium of 141, potassium 3.2, chloride 107, bicarbonate 25, BUN 4, creatinine 0.4, glucose is 86. Bilirubin was elevated yesterday at 1.4. LFTs are within normal limits. CRP is elevated at 4.2. Cardiac enzymes were negative. A urinalysis had only 1-5 WBCs. Blood cultures from the 20th x3 sets are all growing gram positive cocci which it yet to be identified. A chest x-ray was performed in the Emergency Room and did not show any effusion but there was minimal infiltrate at the left base. ASSESSMENT AND PLAN: 1. Gram-positive septicemia. 2. Fever strongly suspicious for recurrent endocarditis, especially with history of endocarditis and tricuspid valve repair. She has a loculated pericardial effusion. She will be continued on broad spectrum antibiotics. Repeat blood cultures will be done today. A UDS will be ordered. She may certainly need cardiovascular surgery evaluation and I would have a low threshold to transfer this patient to [facility] where she received her previous surgical care. Otherwise, we will follow along with you. Thank you for this consultation.
--- NOTE | 2016-11-22 15:49 | Pharmacy Progress Note ---
Pharmacy Antibiotic Consult Date of Service: Nov 22, 2016. Pharmacy Dosing Scope Pharmacy is consulted to initiate vancomycin IV dosing therapy, order appropriate labs and adjust drug dose/frequency. Subjective * The patient is a 26 year old female admitted on Nov 21, 2016 at 20:13 with concern of bacterial endocarditis. * She has a history of IVDA and a endocarditis (for which she was treated at [facility] with a tricuspid valve replacement in 08/2016). * She was recently started on azithromycin without resolution of s/s. * She does currently smoke. Objective Height (Feet): 5 Height (Inches): 5.00 Weight (Kilograms): 68.400 Lab Results (24hrs): Laboratory Tests Test 11/21/16 18:41 11/22/16 10:00 BUN/Creatinine Ratio 14.0 9.6 Blood Urea Nitrogen 7 mg/dl 4 mg/dl Creatinine 0.53 mg/dl 0.43 mg/dl White Blood Count 10.79 K/uL 4.65 K/uL Red Blood Count 4.87 M/uL 4.10 M/uL Hemoglobin 14.4 g/dL 12.0 g/dL Hematocrit 42.3 % 37.0 % Mean Corpuscular Volume 86.9 fL 90.2 fL Mean Corpuscular Hemoglobin 29.6 pg 29.3 pg Mean Corpuscular Hemoglobin Concent 34.0 g/dl 32.4 g/dl Platelet Count 148 K/uL 108 K/uL Mean Platelet Volume 11.4 fL 11.4 fL Neutrophils (%) (Auto) 81.3 % 66.7 % Lymphocytes (%) (Auto) 8.3 % 20.2 % Monocytes (%) (Auto) 9.8 % 12.3 % Eosinophils (%) (Auto) 0.1 % 0.6 % Basophils (%) (Auto) 0.1 % 0.2 % Neutrophils # (Auto) 8.77 K/uL 3.10 K/uL Lymphocytes # (Auto) 0.90 K/uL 0.94 K/uL Monocytes # (Auto) 1.06 K/uL 0.57 K/uL Eosinophils # (Auto) 0.01 K/uL 0.03 K/uL Basophils # (Auto) 0.01 K/uL 0.01 K/uL Micro Results: Item Value Date Time Blood Culture - Preliminary Resulted 11/21/16 1834 Blood Gram Positive Cocci Blood Culture - Preliminary Resulted 11/21/16 1841 Blood Gram Positive Cocci Blood Culture - Preliminary Resulted 11/21/16 1851 Blood Gram Positive Cocci Urine Culture Received 11/21/16 2105 Urine , Clean Catch Pending Blood Culture Ordered 11/22/16 1445 Blood Pending Blood Culture Ordered 11/22/16 1445 Blood Pending Recent Pertinent Medications Item Value Date Time Cefepime HCl 1999 112.5 ml @ 200 mls/hr 11/21/16 1808 mg/Dextrose NOW STAT/IV ONE TIME DOSE 11/21/16 1915 Cefepime HCl 1999 112.5 ml @ 200 mls/hr 11/22/16 0400 mg/Dextrose Q8H/IV CONTINUES 11/22/16 1207 Levofloxacin 750 mg 11/21/161953 (Levaquin / D5W) NOW STAT/IV ONE TIME DOSE 11/21/162041 Levofloxacin 750 150 ml @ 100 mls/hr 11/22/16 2000 mg/Prmx Q24H/IV CONTINUES Assessment & Plan Assessment: * 26 y/o with suspected bacterial endocarditis, now with gram positive cocci bacteremia * broad-spectrum ABX started including vancomycin * ID consulted Plan: * Continue broad-spectrum antibiotics with vancomycin, levofloxacin, and cefepime at this time Vancomycin (pharmacy consult) * Loading dose: 1700 mg IV X 1 dose * Maintenance dose: 1000 mg IV every 6 hours * Trough level today prior to the 14:00 dose = 17.5mcg/mL * therapeutic, continue same dosing regimen * re-check trough tomorrow to ensure patient is not accumulating at such a small dosing interval Levofloxacin (not a pharmacy consult) * continue 750mg IV every 24 hours * no dose adj for CrCl above 50mL/min Cefepime (not a pharmacy consult) * continue 2000 mg IV every 8 hours * no dose adj for CrCl above 60mL/min Of Note: * May consider the addition of Rifampin + gentamicin for infective endocarditis with a prosthetic valve with GPC likely causative organism empirically. * If MSSA - consider Nafcillin + rifampin + gentamicin * If MRSA - consider vancomycin + rifampin + gentamicin * May consider de-escalation of one of the gram negative agents (levofloxacin or cefepime) since all cultures growing gram positive organisms Pharmacy will continue to follow and will adjust dose/frequency as necessary. Thank you
[2016-11-22 19:20] LABS: BENZODIAZEPINE, URINE NEG (NEG); COCAINE,URINE NEG (NEG); PHENCYCLIDINE, URINE NEG (NEG)
[2016-11-22] MEDS ORDERED: LEVOFLOXACIN / D5W 750 MG in PREMIXED IN D5W 150 ML IV SCH (20:00)
[2016-11-22] MEDS: HEPARIN SOD 5000 UNIT/0.5 ML CARP SQ SCH (20:35)
--- NOTE | 2016-11-22 22:31 | CARDIOLOGY CONSULTATION ---
DATE OF CONSULTATION: 11/22/2016 HISTORY OF PRESENT ILLNESS: Nancy Hernandez is a 26-year-old female seen in cardiology consultation per the request of Dr. Stahl for evaluation of fever as well as gram-positive bacteremia in a patient with a history of tricuspid valve endocarditis. 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 Per review of her past records, including her discharge summary from [facility], dated 08/13/2016, she had been initially treated with 6 weeks of methicillin and tricuspid valve surgery had been discussed in [place], but patient had previously declined surgery. She has a history of septic emboli to her lungs and pulmonary embolism and was on Coumadin at one point. She underwent a tricuspid valve repair performed in [facility] on 08/09/2016. Her postoperative course included a right-sided hemopneumothorax and required a chest tube placement. She had recently seen her primary care provider and had fevers and chills and recently was provided a course of azithromycin as an outpatient. Yesterday, she had seen her primary care provider and had recurrent fevers and was subsequently referred to our Emergency Room. Three of three blood cultures have yielded gram-positive cocci. The patient has been placed on appropriate antibiotics, as supervised by infectious disease, including cefepime and vancomycin. Her most recent temperature is 37.0. Her temperature max today was 38.2. Through most of the day, she was somewhat lethargic. During my assessment of the patient at 7:30 p.m. on 11/22/2016, she was restless, and tearful. She was awake and conversant. Her subjective complaints include chest discomfort under her left as well as her right breast. This has apparently been a chronic complaint, as per reviewing her records, including dating back to prior to her valve surgery, even when she was hospitalized here in May. She also notes mid-thoracic back pain, which is making it difficult for her to be comfortable. It is noted that she was readmitted for fevers at [facility] last month in October,. A transthoracic echocardiogram was performed then, but no repeat BANDAR. PAST MEDICAL HISTORY: 1. Methicillin-sensitive Staph aureus endocarditis. 2. Hepatitis C virus. 3. 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 4. History of IV drug use. 5. History of non-ST segment elevation myocardial infarction due to Ritalin overdose. 6. History of pulmonary thromboembolism. 7. History of septic embolism to the lungs. 8. History of severe residual tricuspid regurgitation. PAST SURGICAL HISTORY: 1. section. 2. Cholecystectomy. 3. Cardiac catheterization, 07/26/2016. 4. Tonsillectomy. 5. Complex tricuspid valve repair with a 26-mm Tri-Ad ring as well as surgical closure of a patent foramen ovale, subsequent right hemopneumothorax. SOCIAL HISTORY: She continues to smoke cigarettes, half pack per day for 14 years. Drug use, as noted above. She states she has not used drugs since April, although her toxicology test today was positive for marijuana and amphetamines. FAMILY HISTORY: History of heart disease in maternal grandmother, stroke in maternal grandfather. The patient has a history of being incarcerated. REVIEW OF SYSTEMS: The patient notes mid-back and low back pain, chest discomfort. Otherwise, negative. ALLERGIES: No known drug allergies. HOME MEDICINES: 1. Furosemide 40 mg daily. 2. Seroquel 100 mg a.m. and 200 mg p.m. LABORATORY DATA: Temperature 37.0, temperature max was 38.2 earlier today. Heart rate 94, blood pressure 99/63 and pulse oximetry 100% on 2 liters nasal cannula. GENERAL APPEARANCE: Awake and oriented, tearful, restless. NECK: No bruits. CARDIOVASCULAR: Tachycardic. No murmurs. ABDOMEN: Soft, nontender. EXTREMITIES: No edema, no evidence of peripheral embolic phenomenon in her fingers or her hands, patient describes pain in her mid-thoracic spine, no focal pain was elicited on palpation. DIAGNOSTIC DATA: Blood cultures as outlined above. WBC is 4.65, erythrocyte sedimentation rate 28. A transthoracic echocardiogram performed today and reviewed personally revealed no obvious vegetations on the visualized valves. There is a non-mobile thickening of the area of the previous tricuspid valve repair. The left ventricular ejection fraction is normal. The right ventricle is moderately dilated. The right ventricular systolic function is moderately reduced. There is severe tricuspid regurgitation. There is a trace loculated pericardial effusion adjacent to the right atrium. There are no echocardiographic indications of tamponade. Images were compared directly to those obtained at the time of prior study, dated on 10/28/[address] [facility]. The tricuspid valve appearance is unchanged. There has been interval improvement in the noted [id number] sized pericardial effusion noted on the prior study. There has been interval resolution of the large left pleural effusion noted on the prior study. FINAL IMPRESSION: A 26-year-old female. Fevers with gram-positive cocci on three of three blood cultures in setting of prior endocarditis, for which patient underwent tricuspid valve repair. She has severe residual tricuspid valve regurgitation and right heart failure, although she is well compensated from a volume standpoint. DISCUSSION AND RECOMMENDATIONS: Recommend continued antibiotics. Infectious disease input is noted and appreciated. Recommend proceeding with a transesophageal echocardiogram to further evaluate for evidence of recurrent endocarditis. The patient does also have a subjective history of back pain, and I think that a thoracic or lumbar discitis is also a possibility, as this could go hand in hand with the same kind of infectious presentation. The patient will likely require imaging for this. I am not certain that she will be able to stay still enough for an MRI, so, a CT may be necessary. I will discuss this with the hospitalist service tomorrow. DOC
[2016-11-23] VITALS (16 sets, daily range): BP systolic 75–114; BP diastolic 40–77; PULSE 74–99; TEMP 36.5–37; O2SAT 94–100
[2016-11-23] MEDS: VANCOMYCIN INJ 1,000 MG in SODIUM CHLORIDE 0.9% 250ML 250 ML IV SCH ×4 (02:05→20:08)
[2016-11-23] MEDS: NSS + 20MEQ KCL 1000ML 1,000 ML IV SCH ×2 (02:46→08:28)
[2016-11-23] MEDS: MoRPHine SULFATE 4 MG/ML 1 ML CARP\\VIAL IV PRN ×2 (02:47→13:27)
[2016-11-23] MEDS: CEFEPIME IV 2,000 MG in DEXTROSE 5% 100ML 100 ML IV SCH (04:12)
[2016-11-23] MEDS: LORAZEPAM 2 MG/ML 1 ML VIAL IV PRN ×2 (05:54→13:27)
[2016-11-23 07:21] LABS: BASO % 0.5 %; BASO ABS # 0.02 K/uL (0-0.2); COMPLETE YES; EOS % 2.4 %; HEMATOCRIT 35.2 % (37-47); LYMPH % 41.1 %; LYMPH ABS # 1.71 K/uL (1.2-3.4); MEAN CELL VOLUME 88.9 fL (80-100); MEAN CORPUSCULAR HGB CONC 32.7 g/dl (32-36); MEAN PLATELET VOLUME 11.4 fL (7.4-10.4); MONO % 23.6 %; NEUT % 32.4 %; PLATELET COUNT 121 K/uL (130-400); RED BLOOD COUNT 3.96 M/uL (4.2-5.4); WHITE BLOOD COUNT 4.16 K/uL (4.8-10.8)
[2016-11-23 07:36] LABS: INR 1.3 (0.9-1.1); PARTIAL THROMBOPLASTIN RATIO 0.9; PROTHROMBIN TIME (PATIENT) 14.1 SECONDS (9.0-12.0)
[2016-11-23 07:54] LABS: BLOOD UREA NITROGEN 3 mg/dl (7-18); CALCIUM 8.5 mg/dl (8.5-10.1); CARBON DIOXIDE 23 mmol/L (21-32); CHLORIDE 112 mmol/L (98-107); CREATININE 0.44 mg/dl (0.60-1.20); GLUCOSE 78 mg/dl (70-99); MAGNESIUM 1.6 mg/dl (1.8-2.4); POTASSIUM 3.8 mmol/L (3.5-5.1); SODIUM 145 mmol/L (136-145)
[2016-11-23] MEDS: HEPARIN SOD 5000 UNIT/0.5 ML CARP SQ SCH ×2 (08:27→21:00)
[2016-11-23] MEDS: QUETIAPINE FUMARATE 100 MG TAB PO SCH (08:28)
[2016-11-23] MEDS ORDERED: MAGNESIUM SULFATE 1GM / D5W 1 GM in PREMIXED IN D5W 100 ML IV ONE ×2 (09:30→10:30)
[2016-11-23] MEDS ORDERED: FENTANYL CITRATE INJ 50 MCG/1 ML 2 ML VIAL ONE (09:37)
[2016-11-23] MEDS ORDERED: MIDAZOLAM HCL 1 MG/ML 2ML VIAL ONE (09:37)
[2016-11-23] MEDS ORDERED: LIDOCAINE HCL 2% 2 ML VIAL (20MG/ML) ONE (09:40)
[2016-11-23] MEDS ORDERED: PROPOFOL IV EMULSION 10 MG/ML 20 ML VIAL IV ONE (09:40)
--- NOTE | 2016-11-23 09:46 | Family Medicine Progress Note ---
Progress Note Date of Service Nov 23, 2016. Subjective Pt evaluation today including: conversation w/ patient, physical exam, chart review, lab review, review of studies Pain: 8/10 Back Pain, Upper Lumbar Spine Voiding: no voiding problems Patient is a 26 year old female that presents with chest pain. Patient still having moderate chest pain but acutely complains about back pain today at bedside that is 8/10, sharp, upper lumbar spine, and does not radiate. Negative CVA Tenderness. Constitutional: No chills, No fever, No sweats Respiratory: No cough, No shortness of breath, No wheezing Cardiovascular: + chest pain Abdomen: No nausea, No pain, No vomiting Musculoskeletal: + problem reported (Back Pain) Female : No dysuria Psychiatric: + substance abuse Medications Current Inpatient Medications Medications (Trade) Dose Ordered Sig/Varun Route Start Time Stop Time Status Last Admin Dose Admin Vancomycin HCl 1 ea 1 ea UD PRN N/A 11/21/16 21:30 12/21/16 21:29 Cefepime HCl/ Dextrose (Maxipime IV/D5 100ml) 112.5 ml @ 200 mls/hr Q8H IV 11/22/16 04:00 01/03/17 03:59 11/23/16 04:12 200 MLS/HR Quetiapine Fumarate (seroQUEL TAB) 100 mg QAM PO 11/22/16 09:00 12/22/16 08:59 11/22/16 07:49 100 MG Quetiapine Fumarate (seroQUEL TAB) 200 mg HS PO 11/21/16 21:00 12/21/16 20:59 11/22/16 20:34 200 MG Lorazepam (Ativan Inj) 0.5-1MG IV PRN ANXIETY Q4H PRN IV 11/21/16 21:15 12/21/16 21:14 11/23/16 05:54 1 MG Acetaminophen (Tylenol Tab) 650 mg Q4H PRN PO 11/21/16 21:15 12/21/16 21:14 11/22/16 03:37 650 MG Magnesium Hydroxide (Milk Of Magnesia Susp) 30 ml Q6H PRN PO 11/21/16 21:15 12/21/16 21:14 Diphenhydramine HCl (Benadryl Inj) 25 mg Q4H PRN IV 11/21/16 21:15 12/21/16 21:14 11/22/16 19:19 25 MG Al Hydrox/Mg Hydrox/ Simethicone 15 ml 15 ml Q4H PRN PO 11/21/16 21:15 12/21/16 21:14 Promethazine HCl/ Sodium Chloride (Phenergan Inj/ Nss 50ml) 50.5 ml @ 202 mls/hr Q4H PRN IV 11/21/16 21:15 12/21/16 21:14 11/22/16 21:39 202 MLS/HR Zolpidem Tartrate (Ambien Tab) 5 mg HSZ PRN PO 11/21/16 21:15 12/21/16 21:14 11/22/16 21:37 5 MG Ondansetron HCl (Zofran Inj) 4 mg Q6H PRN IV 11/21/16 21:15 12/21/16 21:14 Morphine Sulfate (MoRPHine SULFATE INJ) 2 mg Q2H PRN IV 11/21/16 21:15 12/05/16 21:14 Morphine Sulfate 4 mg 4 mg Q2H PRN IV 11/21/16 21:15 12/05/16 21:14 11/23/16 02:47 4 MG Levofloxacin 750 mg/Prmx 150 ml @ 100 mls/hr Q24H IV 11/22/16 20:00 01/03/17 19:59 11/22/16 21:35 100 MLS/HR Vancomycin HCl 1000 mg/Sodium Chloride 270 ml @ 125 mls/hr Q6H IV 11/22/16 02:00 01/03/17 01:59 11/23/16 08:27 125 MLS/HR Potassium Chloride/Sodium Chloride 1,000 ml @ 100 mls/hr Q10H IV 11/22/16 03:13 12/22/16 03:12 11/23/16 08:28 100 MLS/HR Pantoprazole Sodium/Syringe (Protonix Inj/ Syringe) 10 ml @ 5 mls/min DAILY@11 IV 11/23/16 11:00 12/23/16 10:59 Heparin Sodium (Porcine) 5000 unit 5,000 unit Q12 SQ 11/22/16 21:00 12/22/16 20:59 Magnesium Sulfate/ Prmx (Magnesium Sulfate/Premixed D5W) 100 ml @ 100 mls/hr TODAY@0930 ONCE IV 11/23/16 09:30 11/23/16 10:29 Objective Vital Signs Date Time Temp Pulse Resp B/P Pulse Ox O2 Delivery O2 Flow Rate FiO2 11/23/16 08:01 36.8 88 16 95/66 96 Room Air 11/23/16 06:13 37.0 94 18 114/77 99 Room Air 11/23/16 04:02 Room Air 11/23/16 03:32 37.0 94 18 114/77 99 Room Air 11/23/16 00:02 Room Air 11/22/16 23:31 36.9 91 18 105/68 98 Room Air 11/22/16 20:04 Nasal Cannula 2.0 11/22/16 19:26 36.3 128 26 106/65 95 Room Air 11/22/16 16:00 Nasal Cannula 2.0 11/22/16 15:18 37.0 94 16 99/63 100 Nasal Cannula 2.0 11/22/16 12:00 Nasal Cannula 2.0 11/22/16 11:19 36.6 75 18 122/69 99 Physical Exam General Appearance: WD/WN, no apparent distress Respiratory/Chest: chest non-tender, lungs clear, normal breath sounds Cardiovascular: regular rate, rhythm, no edema, no gallop, no murmur Abdomen: normal bowel sounds, non tender, soft Neurologic/Psychiatric: alert, oriented x 3 Notes: MSK: Back Pain with palpation of vertebral body of L3/L4 region. Non erythematous, no swelling, no drainage, no visible deformities. Laboratory Results Results Past 24 Hours Test 11/22/16 10:00 11/22/16 11:12 11/22/16 14:15 11/23/16 06:30 Range/Units White Blood Count 4.65 4.16 4.8-10.8 K/uL Red Blood Count 4.10 3.96 4.2-5.4 M/uL Hemoglobin 12.0 11.5 12.0-16.0 g/dL Hematocrit 37.0 35.2 37-47 % Mean Corpuscular Volume 90.2 88.9 80-100 fL Mean Corpuscular Hemoglobin 29.3 29.0 25-34 pg Mean Corpuscular Hemoglobin Concent 32.4 32.7 32-36 g/dl Platelet Count 108 121 130-400 K/uL Mean Platelet Volume 11.4 11.4 7.4-10.4 fL Neutrophils (%) (Auto) 66.7 32.4 % Lymphocytes (%) (Auto) 20.2 41.1 % Monocytes (%) (Auto) 12.3 23.6 % Eosinophils (%) (Auto) 0.6 2.4 % Basophils (%) (Auto) 0.2 0.5 % Neutrophils # (Auto) 3.10 1.35 1.4-6.5 K/uL Lymphocytes # (Auto) 0.94 1.71 1.2-3.4 K/uL Monocytes # (Auto) 0.57 0.98 0.11-0.59 K/uL Eosinophils # (Auto) 0.03 0.10 0-0.5 K/uL Basophils # (Auto) 0.01 0.02 0-0.2 K/uL RDW Standard Deviation 55.4 54.6 36.4-46.3 fL RDW Coefficient of Variation 16.6 16.6 11.5-14.5 % Immature Granulocyte % (Auto) 0.0 0.0 % Immature Granulocyte # (Auto) 0.00 0.00 0.00-0.02 K/uL Prothrombin Time 15.1 14.1 9.0-12.0 SECONDS Prothromb Time International Ratio 1.4 1.3 0.9-1.1 Activated Partial Thromboplast Time 28.1 24.3 21.0-31.0 SECONDS Partial Thromboplastin Ratio 1.1 0.9 Sodium Level 141 145 136-145 mmol/L Potassium Level 3.2 3.8 3.5-5.1 mmol/L Chloride Level 107 112 98-107 mmol/L Carbon Dioxide Level 25 23 21-32 mmol/L Anion Gap 9.0 10.0 3-11 mmol/L Blood Urea Nitrogen 4 3 7-18 mg/dl Creatinine 0.43 0.44 0.60-1.20 mg/dl Est Creatinine Clear Calc Drug Dose 180.0 175.9 ml/min Estimated GFR () > 150.0 > 150.0 Estimated GFR (Non- 141.4 140.3 BUN/Creatinine Ratio 9.6 7.0 10-20 Random Glucose 82 78 70-99 mg/dl Calcium Level 8.2 8.5 8.5-10.1 mg/dl Magnesium Level 2.0 1.6 1.8-2.4 mg/dl Bedside Glucose 86 70-90 mg/dl Vancomycin Level Trough 17.5 SEE COMMENT mcg/ml Test 11/23/16 09:16 Range/Units Microbiology Results 11/22/16 Blood Culture, Received Pending 11/22/16 Blood Culture, Received Pending Assessment and Plan Patient is a 26 year old IVDU that presented yesterday on 11/22 to the ED with chest pain, fever, and chills 1) Bacterial Endocarditis - History of Tricuspid Repair at [facility] [place] / Endocarditis IVDU Aug 2016 - 12/02 Blood Cultures, Growing Staph Aureus - TTE in ED on 11/22: Loculated pericardial effusion improved since 10/28, Thickened tricuspid valve repair with severe tricuspid regurgitation - Dr. Peguero recommends BANDAR - Urine Tox positive for Urine opiates, Urine methamphetamine/ amphertiamine, and Urine Marijuana - IV Vancomycin as per renal dosing protocol, IV Cefepime 2g IV q8, IV Levofloxacin 750mg q24h - Troponin in ED < 0.015 2) Back Pain - Questionable for Thoracic / Lumbar Discitis or possible Epidural Abscess - Lumbar Spine CT and Thoracic Spine CT ordered 3) Hypomagnesemia - Magnesium 1.6 this am - Replete with 1gm Magnesium IV 4) History of CHF - Lasix 40mg PO - Potassium Cl 20 mEq 5) Psych - Anxiety - Ativan q4h PRN - Depression - Seroquel 100mg qAM, 200mg qHS - Sleep - Ambien 5mg PRN Sleep 6) Pain Control - Morphine 4mg q2h PRN 7) GI Prophylaxis - Protonix 8) DVT Prophylaxis - Heparin
[2016-11-23 09:50] LABS: PREG INTERNAL NEGATIVE QC NEG CLEAR BACKGROUND; PREG INTERNAL POSITIVE QC POS CONTROL LINE
[2016-11-23] MEDS ORDERED: EpHEDrine SULFATE INJ 50 MG/ML AMP IV PRN (10:30)
[2016-11-23] MEDS ORDERED: FUROSEMIDE 40 MG TAB PO ONE (10:30)
[2016-11-23] MEDS ORDERED: ATROPINE SULFATE 0.1 MG/ML 5ML SYR IV PRN (10:30)
--- NOTE | 2016-11-23 11:00 | Cardiology Procedure Brief Nt ---
Preliminary Cardiology Note Procedure Date Nov 23, 2016. Pre-Procedure Diagnosis fever, bacteremia, r/o endocarditis Post-Procedure Diagnosis small vegetation suspected Procedure(s) Performed BANDAR Cyber Legal Advisor Cameron Peguero DO Tur[employer] Lathe Machinist(s) BARBER Espinosa Estimated Blood Loss none Preliminary Findings The aortic valve, mitral valve, and pulmonic valve were all normal without vegetation. There is severe tricuspid regurgitation. There is a small linear echodensity measuring 0.5 cm x 0.2 cm on the right atrial aspect of the (lateral portion) of the tricuspid valve annuloplasty ring suspicious for vegetation. No evidence of abscess. Recommendations 3/3 blood cultures overnight = Staph aureus, sensitivities pending. Recommend proceeding with imaging of the thoracic and lumbars spine given subjective back pain to evaluate for discitis. Doubt pt would tolerate staying still long enough for MRI therefore will proceed with CT . Continue IV antibiotics. I plan to have images of her BANDAR transferred to CT [place] [facility] [place] review. Patient's volume status is stable, no clinical volume overload , rhythm stable with SR and sinus tachycardia. Specimens none Anesthesia Versed 2 mg IV, lidocaine 80 mg IV, fentanyl 200 mcg IV, propofol 150 mg IV Complication(s) None Disposition PCU
[2016-11-23] MEDS: PANTOprazole INJ 40 MG in SYRINGE 0 ML IV SCH (11:04)
--- NOTE | 2016-11-23 11:38 | Progress Note ---
Subjective Date of Service: Nov 23, 2016. Subjective Pt evaluation today including: conversation w/ patient, physical exam, chart review, lab review pt seen in follow up for IE. spoke with cardio this am. had BANDAR today, pt is seen by me after BANDAR and is lethargic after sedation. BANDAR results with abnml findings on TV repair, all cultures from ER with S. aureus (sensitivities pending). She is lethargic on exam but more awake than yesterday. UDS + for multiple substances including opiates, meth and thc. She denies fevers on my exam, she denies cp. She is on multiple abx and tolerating well. no vomiting or diarrhea. She has complained of back pain as well however, she does not mention on my exam, ct scan of spine is pending to r/o osteo. Per cardio she was last seen in [place] when [place] [facility] [place] was diagnosed with MSSA, treated with long course of nafcillin and then underwent TV repeair. She also has h/o septic pulm emboli as well. She is currently on vanco pending final culture results. repeat cultures done yesterday and are pending. She is afebrile. wbc 4. Problem List Medical Problems: (1) Left sided chest pain Status: Acute (2) Pneumonia Status: Acute (3) Precordial chest pain Status: Acute (4) Pulmonary infiltrate Status: Acute (5) Sepsis Status: Acute (6) Withdrawal symptoms, drug or narcotic Status: Acute Objective Vital Signs Date Time Temp Pulse Resp B/P Pulse Ox O2 Delivery O2 Flow Rate FiO2 11/23/16 11:16 36.5 85 20 95/57 97 Room Air 11/23/16 11:00 36.7 85 20 87/53 94 Room Air 11/23/16 10:45 82 18 93/43 96 Nasal Cannula 11/23/16 10:35 86 18 92/44 95 Nasal Cannula 11/23/16 10:25 96 18 90/46 99 Nasal Cannula 3 11/23/16 10:25 85 18 92/40 99 Nasal Cannula 3 11/23/16 10:20 96 18 90/46 99 Nasal Cannula 3 11/23/16 10:15 95 18 75/40 99 Nasal Cannula 3 11/23/16 10:10 96 18 95/45 99 Nasal Cannula 3 11/23/16 10:05 99 18 94/40 99 Nasal Cannula 3 11/23/16 10:00 97 18 85/48 99 Nasal Cannula 3 11/23/16 09:55 92 18 105/71 99 Nasal Cannula 3 11/23/16 09:50 91 18 112/61 100 Nasal Cannula 3 11/23/16 08:01 36.8 88 16 95/66 96 Room Air 11/23/16 06:13 37.0 94 18 114/77 99 Room Air 11/23/16 04:02 Room Air 11/23/16 03:32 37.0 94 18 114/77 99 Room Air 11/23/16 00:02 Room Air 11/22/16 23:31 36.9 91 18 105/68 98 Room Air 11/22/16 20:04 Nasal Cannula 2.0 11/22/16 19:26 36.3 128 26 106/65 95 Room Air 11/22/16 16:00 Nasal Cannula 2.0 11/22/16 15:18 37.0 94 16 99/63 100 Nasal Cannula 2.0 11/22/16 12:00 Nasal Cannula 2.0 Physical Exam General Appearance: + pertinent finding (lethargic but arousable, seen after BANDAR) Neck: supple Respiratory/Chest: lungs clear, normal breath sounds, no respiratory distress Cardiovascular: regular rate, rhythm, no edema Abdomen: soft Extremities: no pedal edema Neurologic/Psychiatric: + pertinent finding (lethargic) Skin: normal color Laboratory Results Item Value Date Time Blood Culture - Preliminary Resulted 11/21/16 1834 Blood Staphylococcus Aureus Blood Culture - Preliminary Resulted 11/21/16 1841 Blood Staphylococcus Aureus Blood Culture - Preliminary Resulted 11/21/16 1851 Blood Staphylococcus Aureus Last 24 Hours Test 11/22/16 14:15 11/23/16 00:00 11/23/16 06:30 Vancomycin Level Trough 17.5 mcg/ml Urine Test NEG White Blood Count 4.16 K/uL Red Blood Count 3.96 M/uL Hemoglobin 11.5 g/dL Hematocrit 35.2 % Mean Corpuscular Volume 88.9 fL Mean Corpuscular Hemoglobin 29.0 pg Mean Corpuscular Hemoglobin Concent 32.7 g/dl Platelet Count 121 K/uL Mean Platelet Volume 11.4 fL Neutrophils (%) (Auto) 32.4 % Lymphocytes (%) (Auto) 41.1 % Monocytes (%) (Auto) 23.6 % Eosinophils (%) (Auto) 2.4 % Basophils (%) (Auto) 0.5 % Neutrophils # (Auto) 1.35 K/uL Lymphocytes # (Auto) 1.71 K/uL Monocytes # (Auto) 0.98 K/uL Eosinophils # (Auto) 0.10 K/uL Basophils # (Auto) 0.02 K/uL RDW Standard Deviation 54.6 fL RDW Coefficient of Variation 16.6 % Immature Granulocyte % (Auto) 0.0 % Immature Granulocyte # (Auto) 0.00 K/uL Prothrombin Time 14.1 SECONDS Prothromb Time International Ratio 1.3 Activated Partial Thromboplast Time 24.3 SECONDS Partial Thromboplastin Ratio 0.9 Sodium Level 145 mmol/L Potassium Level 3.8 mmol/L Chloride Level 112 mmol/L Carbon Dioxide Level 23 mmol/L Anion Gap 10.0 mmol/L Blood Urea Nitrogen 3 mg/dl Creatinine 0.44 mg/dl Est Creatinine Clear Calc Drug Dose 175.9 ml/min Estimated GFR () > 150.0 Estimated GFR (Non- 140.3 BUN/Creatinine Ratio 7.0 Random Glucose 78 mg/dl Calcium Level 8.5 mg/dl Magnesium Level 1.6 mg/dl Assessment and Plan (1) Infectious endocarditis Assessment & Plan: she will continue on iv abx, stop gnr coverage. follow repeat cultures, pending. await sensitivities, h/o mssa. no pulm complaints now but has h/o septic pulm emboli, may be of benefit to ct chest as well. awaiting imaging of back r/o osteo. Spoke with cardio, will contact [facility] [place] regarding ? additional surgical care (2) Staphylococcus aureus septicemia Continued [facility] stay due to: multiple IV medications needed Discharge planning: uncertain
--- NOTE | 2016-11-23 12:24 | DIAGNOSTIC IMAGING REPORT ---
LUMBAR SPINE CT CT DOSE: HISTORY: Back pain Back Pain, Endocarditis, IV Drug User TECHNIQUE: Multiaxial CT images of the lumbar spine were performed and reformatted in the sagittal and coronal plane without the use of contrast. COMPARISON: None. FINDINGS: No fractures. No subluxation. Paraspinal soft tissues are unremarkable. Vertebral column shows no abnormality. There are no bony destructive changes. IMPRESSION: Negative CT of the lumbar spine Electronically signed by: Jony Sky M.D. 11/23/2016 12:23 PM Dictated Date/Time: 11/23/2016 12:21 PM
--- NOTE | 2016-11-23 12:24 | DIAGNOSTIC IMAGING REPORT ---
CT THORACIC SPINE WITHOUT CT DOSE: 1353.43 mGy.cm CLINICAL HISTORY: Back Pain, Endocarditis, IV Drug User TECHNIQUE: Helical images were acquired in the transverse plane. Sagittal and coronal reformatted images were acquired. COMPARISON STUDY: None. FINDINGS: No fractures or subluxations are visualized. There are no destructive lesions to indicate osteomyelitis. CT scanning is insensitive for the detection of epidural disease. There are postsurgical changes of a midline sternotomy. There are bilateral pulmonary airspace opacities. There is nonspecific retrosternal soft tissue, likely postsurgical. There are small bilateral pleural effusions. The heart appears enlarged. IMPRESSION: 1. Cardiomegaly, small bilateral pleural effusions, and bilateral pulmonary airspace opacities 2. No thoracic spine fractures or subluxations. No destructive lesions are visualized. 3. It should be noted that CT scanning is insensitive for the detection of epidural disease. Electronically signed by: Will Judd M.D. 11/23/2016 12:22 PM Dictated Date/Time: 11/23/2016 12:19 PM
--- NOTE | 2016-11-23 12:35 | Anesthesiology Progress Note ---
Anesthesia Post Op Note Date & Time Nov 23, 2016 at 12:35 Vital Signs Pain Intensity: 8 Vital Signs Past 12 Hours Date Time Temp Pulse Resp B/P Pulse Ox O2 Delivery O2 Flow Rate FiO2 11/23/16 11:45 36.5 78 18 96/57 94 Room Air 11/23/16 11:16 36.5 85 20 95/57 97 Room Air 11/23/16 11:00 36.7 85 20 87/53 94 Room Air 11/23/16 10:45 82 18 93/43 96 Nasal Cannula 11/23/16 10:35 86 18 92/44 95 Nasal Cannula 11/23/16 10:25 96 18 90/46 99 Nasal Cannula 3 11/23/16 10:25 85 18 92/40 99 Nasal Cannula 3 11/23/16 10:20 96 18 90/46 99 Nasal Cannula 3 11/23/16 10:15 95 18 75/40 99 Nasal Cannula 3 11/23/16 10:10 96 18 95/45 99 Nasal Cannula 3 11/23/16 10:05 99 18 94/40 99 Nasal Cannula 3 11/23/16 10:00 97 18 85/48 99 Nasal Cannula 3 11/23/16 09:55 92 18 105/71 99 Nasal Cannula 3 11/23/16 09:50 91 18 112/61 100 Nasal Cannula 3 11/23/16 08:01 36.8 88 16 95/66 96 Room Air 11/23/16 06:13 37.0 94 18 114/77 99 Room Air 11/23/16 04:02 Room Air 11/23/16 03:32 37.0 94 18 114/77 99 Room Air Notes Mental Status: alert / awake / arousable, participated in evaluation Pt Amnestic to Procedure: Yes Nausea / Vomiting: adequately controlled Pain: adequately controlled Airway Patency, RR, SpO2: stable & adequate BP & HR: stable & adequate Hydration State: stable & adequate Anesthetic Complications: no major complications apparent
[2016-11-23] MEDS ORDERED: HYDROmorphone INJ 1 MG/ML SYR IV STA (14:48)
--- NOTE | 2016-11-23 14:56 | Cardiology Follow-Up ---
Subjective General Date of Service: Nov 23, 2016. Chief Complaint: follow up fever, bacteremia Pt evaluation today including: conversation w/ patient, physical exam History of Present Illness The patient is a 26 year old female seen in follow up. BANDAR this am suggest possible vegetation on TV annuloplasty ring, possible small MV vegetation. Patient with episodes of hypotension overnight. No objective temperature, but did have subjective fever. CT of the spine revealed no evidence of ostial myelitis, but this study is insufficient for epidural infection/evaluation of discs for discitis. Allergies Coded Allergies: No Known Allergies (Unverified , 11/21/16) Social History Smoking Status: Current Every Day Smoker Hx Tobacco Use In Past Year?: Yes Hx Alcohol Use - Type And Amou: Yes Hx Substance Use - Type And Am: Yes Problem List Medical Problems: (1) Left sided chest pain Status: Acute (2) Pneumonia Status: Acute (3) Precordial chest pain Status: Acute (4) Pulmonary infiltrate Status: Acute (5) Sepsis Status: Acute (6) Withdrawal symptoms, drug or narcotic Status: Acute Physical Exam Vital Signs Last Vital Signs Documentation Date Time Temp Pulse Resp B/P Pulse Ox O2 Delivery O2 Flow Rate FiO2 11/23/16 12:30 36.5 93 20 99/62 97 Room Air 11/23/16 10:25 3 Physical Exam Constitutional: Level of Distress: NAD Head: normocephalic Neck: supple, trachea midline Lungs: Auscultation: no wheezing, no rales/crackles Cardiovascular: Heart Auscultation: RRR, II/ RON Abdomen: Bowel Sounds: diminished Inspection & Palpation: non-distended Extremities: no edema, no varicosities Assessment and Plan Assessment and Plan Impression: 26-year-old female 1. 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 Subjective back pain 3. Severe residual tricuspid valve regurgitation, moderate pulmonary hypertension, PA systolic pressure likely 55-60 mmHg based on a cardiogram today , with findings of RV dysfunction and RV volume overload. Plan: Overall, the patient is compensated from heart failure standpoint, but given her findings on echocardiogram, and watch her closely from a volume status standpoint as she is receiving a significant amount of IV fluids from maintenance fluids as well as from IV antibiotics, and eventually, she may become volume overloaded is not watched carefully, looking ahead, we may need to start diuretic to keep her intake and output even. At the present time, recommend continued medication therapy for possible recurrent endocarditis. There is no evidence of gross abscess. 2 possible infectious foci were noted on her transesophageal echocardiogram, one on the tricuspid valve annuloplasty ring, and one on the mitral valve. The mitral valve abnormality was very small, but not there on prior studies for review of records from [place]. CT imaging was insufficient to rule out discitis. She has had back pain, may need to consider alternative imaging to rule out second source of infection. Present continue appropriate antibiotics. Infectious disease input is noted and appreciated. Plan for repeat transesophageal echocardiogram within short- term, probably early next week. No indication for CT surgery intervention as present, but if there are progressive changes on short term follow up BANDAR while on appropriate antibiotic therapy , that may change. Continue SQ heparin for DVT prophylaxis. Laboratory Results Last 24 Hours Test 11/23/16 00:00 11/23/16 06:30 11/23/16 13:30 Urine Test NEG White Blood Count 4.16 K/uL Red Blood Count 3.96 M/uL Hemoglobin 11.5 g/dL Hematocrit 35.2 % Mean Corpuscular Volume 88.9 fL Mean Corpuscular Hemoglobin 29.0 pg Mean Corpuscular Hemoglobin Concent 32.7 g/dl Platelet Count 121 K/uL Mean Platelet Volume 11.4 fL Neutrophils (%) (Auto) 32.4 % Lymphocytes (%) (Auto) 41.1 % Monocytes (%) (Auto) 23.6 % Eosinophils (%) (Auto) 2.4 % Basophils (%) (Auto) 0.5 % Neutrophils # (Auto) 1.35 K/uL Lymphocytes # (Auto) 1.71 K/uL Monocytes # (Auto) 0.98 K/uL Eosinophils # (Auto) 0.10 K/uL Basophils # (Auto) 0.02 K/uL RDW Standard Deviation 54.6 fL RDW Coefficient of Variation 16.6 % Immature Granulocyte % (Auto) 0.0 % Immature Granulocyte # (Auto) 0.00 K/uL Prothrombin Time 14.1 SECONDS Prothromb Time International Ratio 1.3 Activated Partial Thromboplast Time 24.3 SECONDS Partial Thromboplastin Ratio 0.9 Sodium Level 145 mmol/L Potassium Level 3.8 mmol/L Chloride Level 112 mmol/L Carbon Dioxide Level 23 mmol/L Anion Gap 10.0 mmol/L Blood Urea Nitrogen 3 mg/dl Creatinine 0.44 mg/dl Est Creatinine Clear Calc Drug Dose 175.9 ml/min Estimated GFR () > 150.0 Estimated GFR (Non- 140.3 BUN/Creatinine Ratio 7.0 Random Glucose 78 mg/dl Calcium Level 8.5 mg/dl Magnesium Level 1.6 mg/dl
[2016-11-23] MEDS ORDERED: HALOPERIDOL LACTATE 5 MG/ML 1 ML VIAL ONE (16:54)
--- NOTE | 2016-11-23 19:10 | TEE ---
*NOTICE TO RECEIVING CONSTITUTION PARTY AGENCY This information is strictly Confidential and protected under [place] law. [place] law prohibits you from making any further disclosure of this information unless further disclosure is expressly permitted by the written consent of the person to whom it pertains or is authorized by law. A general authorization for the release of medical or other information is not sufficient for this purpose. Hospital accepts no responsibility if the information is made available to any other person, INCLUDING THE PATIENT. Interpretation Summary * Name: BRYSON RIVERO [id number] Study Date: 11/23/2016 09:14 AM BP: 90/46 mmHg * Patient Location: .2T\S\S238\S\2 HR: 96 * : 1990 (M/d/yyyy) Gender: Female Height: 65 in * Age: 26 yrs Ethnicity: [place] Weight: 150 lb * Ordering Physician: Cameron Peguero DO, [facility] * Referring Physician: Wolf Kurtz * Performed By: Yessenia Sinha * * Reason For Study: Endocarditis * BSA: 1.8 m2 * -- Conclusions -- * There is a very subtle linear,mobile echodensity on the atrial aspect of the posterior leaflet of the mitral valve compatible with possible early vegetation (159 degrees, image 11/105). * There is trace mitral regurgitation. * There is evidence of previous tricuspid valve repair with annuloplasty ring. * There is a 0.5 cm x 0.2 cm mobile echodensity on the atrial aspect of the annuloplasty ring adjacent to the right ventricular lateral wall. * There is no evicend of abscess. * There is severe tricuspid regurgitation. * Moderate pulmonary hypertension is present. * The calculated right ventricular systolic pressure is 56 mm Hg. * The LV Ejection Fraction = 50-55%. * The right ventricular systolic function is moderately reduced. * The right ventricle is moderately dilated. Procedure Details * BANDAR Probe #2 utilized for procedure. * The study was performed in Cardiac Catheterization Lab. * Time out was conducted by the physician, nurse, and tissue technologist with positive identification of patient and procedure. * Informed consent for Transesophageal Echocardiogram was obtained prior to the procedure. * An intravenous line was placed. A topical anesthetic agent was used for oropharangeal anesthesia. A bite block was inserted. * Sedation performed by the anesthesia department. * The patient's vital signs, including blood pressure, heart rate, pulse oximetry and cardiac rhythm were monitored throughout the procedure . * Fentanyl 200 mcg was administered for procedural sedation. * Midazolam 2 mg administered for sedation. * 150mcg Propofol were administered. * A multifrequency, multiplane transesopheageal echocardiographic endoscope was inserted and manipulated in the standard fashion to achieve multiplane views. * The transesophageal probe was passed without difficulty. * The usual views were obtained; basal, mid-esophageal, transgastric and aortic views. * The patient tolerated the procedure well without evidence of orophangeal or esophageal trauma. * Contrast injection with agitated saline was performed. Left Ventricle * The left ventricle is normal in size. * There is normal left ventricular wall thickness. * Left ventricular systolic function is normal. * Ejection Fraction = 50-55%. * The left ventricular wall motion is normal. Right Ventricle * The right ventricle is moderately dilated. * The right ventricular systolic function is moderately reduced. Atria * The left atrial size is normal. * No thrombus is detected in the left atrial appendage. * No left atrial mass or thrombus visualized. * The right atrium is moderately dilated. * The interatrial septum is intact with no evidence for an atrial septal defect. Mitral Valve * The mitral valve anatomy is normal. * There is a very subtle linear , mobile echodensity on the atrial aspect of the posterior leaflet of the mitral valve compatible with possible early vegetation (159 degrees, imat 11/105). * There is no mitral valve stenosis. * There is trace mitral regurgitation. Tricuspid Valve * There is evidence of previous tricuspid valve repair with annuloplasty ring. There is a 0.5 cm x 0.2 cm mobile echodensity on the atrial aspect of the annuloplasty ring adjacent to the right ventricular lateral wall. There is no evicend of abscess. * There is no tricuspid stenosis. * There is severe tricuspid regurgitation. * Moderate pulmonary hypertension is present. The calculated right ventricular systolic pressure is 56 mm Hg. Aortic Valve * The aortic valve is trileaflet. * There is no aortic valvular vegetation. * No hemodynamically significant valvular aortic stenosis. * No aortic regurgitation is present. Pulmonic Valve * The pulmonic valve is not well seen, but is grossly normal. * There is no pulmonic valvular stenosis. * There is no significant pulmonary regurgitation. Great Vessels * The aortic root is normal size. Pericardium * There is no pericardial effusion. Pulmonic Valve * There is no vegetation on the pulmonic valve. Doppler Measurements and Calculations TR max nikhil 376.9 cm/sec
[2016-11-23] MEDS ORDERED: VANCOMYCIN TROUGH SCH (19:30)
[2016-11-23] MEDS: QUETIAPINE FUMARATE 200 MG TAB PO SCH (20:02)
[2016-11-23] MEDS: HYDROmorphone INJ 1 MG/ML SYR IV PRN (20:09)
--- NOTE | 2016-11-23 20:44 | Pharmacy Progress Note ---
Pharmacy Progress Note Date of Service Nov 23, 2016. Progress Note REGARDING IV VANCOMYCIN: * Repeat trough level 16.4mcg/mL = therapeutic * continue same dose/interval * If MRSA is growing, may consider increasing dose of vancomycin and goal trough closer to 20mcg/mL Thank you for engaging the clinical pharmacy consult service in the care of this patient. Please let us know if we can be of further assistance.
[2016-11-23] MEDS ORDERED: METHADONE HCL 5 MG TAB PO SCH (21:00)
[2016-11-24] VITALS (10 sets, daily range): BP systolic 91–128; BP diastolic 61–76; PULSE 72–88; TEMP 36.3–36.9; O2SAT 94–98
[2016-11-24] MEDS: LORAZEPAM 2 MG/ML 1 ML VIAL IV PRN ×3 (00:30→20:27)
[2016-11-24] MEDS: HYDROmorphone INJ 1 MG/ML SYR IV PRN ×6 (00:31→22:16)
[2016-11-24] MEDS: VANCOMYCIN INJ 1,000 MG in SODIUM CHLORIDE 0.9% 250ML 250 ML IV SCH ×2 (01:19→10:03)
[2016-11-24 07:03] LABS: INR 1.2 (0.9-1.1); PARTIAL THROMBOPLASTIN RATIO 1.1; PROTHROMBIN TIME (PATIENT) 13.2 SECONDS (9.0-12.0)
[2016-11-24 07:24] LABS: BLOOD UREA NITROGEN 3 mg/dl (7-18); BUN/CREATININE RATIO 8.5 (10-20); CALCIUM 8.5 mg/dl (8.5-10.1); CARBON DIOXIDE 30 mmol/L (21-32); CHLORIDE 108 mmol/L (98-107); CREATININE 0.39 mg/dl (0.60-1.20); GLUCOSE 83 mg/dl (70-99); MAGNESIUM 1.6 mg/dl (1.8-2.4); POTASSIUM 3.6 mmol/L (3.5-5.1); SODIUM 144 mmol/L (136-145)
[2016-11-24 07:57] LABS: HEMATOCRIT 35.4 % (37-47); MEAN CELL VOLUME 90.5 fL (80-100); MEAN CORPUSCULAR HEMOGLOBIN 29.4 pg (25-34); MEAN CORPUSCULAR HGB CONC 32.5 g/dl (32-36); MEAN PLATELET VOLUME 11.4 fL (7.4-10.4); PLATELET COUNT 125 K/uL (130-400); RED BLOOD COUNT 3.91 M/uL (4.2-5.4); WHITE BLOOD COUNT 3.75 K/uL (4.8-10.8)
[2016-11-24 07:58] LABS: BASO % 0.5 %; BASO ABS # 0.02 K/uL (0-0.2); COMPLETE YES; EOS % 2.9 %; IG% 0.3 %; LYMPH % 56.8 %; LYMPH ABS # 2.13 K/uL (1.2-3.4); MONO % 10.9 %; NEUT % 28.6 %
--- NOTE | 2016-11-24 08:50 | Pharmacy Progress Note ---
Pharmacy Antibiotic Prog Note Date of Service: Nov 24, 2016. Subjective: The patient is currently receiving Vancomycin 1,000mg (15mg/kg) IV every 6 hours. The patient is currently on day # 4 of Vancomycin IV therapy. Objective: Height (Feet): 5 Height (Inches): 5.00 Weight (Kilograms): 68.400 Levels: Item Value Date Time Vancomycin Level Trough 17.5 mcg/ml 11/22/16 1415 Vancomycin Level Trough 16.4 mcg/ml 11/23/16 1950 Lab Results (24hrs): Laboratory Tests Test 11/24/16 06:20 11/24/16 06:30 BUN/Creatinine Ratio 8.5 Blood Urea Nitrogen 3 mg/dl Creatinine 0.39 mg/dl White Blood Count 3.75 K/uL Red Blood Count 3.91 M/uL Hemoglobin 11.5 g/dL Hematocrit 35.4 % Mean Corpuscular Volume 90.5 fL Mean Corpuscular Hemoglobin 29.4 pg Mean Corpuscular Hemoglobin Concent 32.5 g/dl Platelet Count 125 K/uL Mean Platelet Volume 11.4 fL Neutrophils (%) (Auto) 28.6 % Lymphocytes (%) (Auto) 56.8 % Monocytes (%) (Auto) 10.9 % Eosinophils (%) (Auto) 2.9 % Basophils (%) (Auto) 0.5 % Neutrophils # (Auto) 1.07 K/uL Lymphocytes # (Auto) 2.13 K/uL Monocytes # (Auto) 0.41 K/uL Eosinophils # (Auto) 0.11 K/uL Basophils # (Auto) 0.02 K/uL Micro Results: PATIENT: BRYSON RIVERO LOC: [place] U # : [id number] AGE/SX: 26/F ROOM: [facility] REG : 11/21/[address]: Moe Payton D.O. : 1990 BED: 1 DIS : STATUS: ADM IN TLOC: SPEC #: [id number] NBA: 11/21/16 STATUS: COMP REQ #: [id number] RECD: 11/21/[address]: Ty Roberson DO SOURCE: BLOOD ENTR: 11/21/[address] [facility] [address]: Wolf Kurtz M.D. [facility]: ORDERED: BLOOD CULTURE Procedure Result Verified Site BLD CULT Final 11/24/16-0803 Organism 1 STAPHYLOCOCCUS AUREUS SENS SENSITIVITY TO FOLLOW SENSITIVITY RESULT INDICATES A METHICILLIN RESISTANT STAPH. AUREUS. PHONED TO DEYVI MORRIS ON 11/24/16 AT 0727 BY El Buckner. Results were verbalized back to ANDER. RESULTS WERE ALSO CALLED TO [facility] INFECTION CONTROL ANSWERING MACHINE ON 11/24/16 BY ANDER. Phoned results to KIMBERLI MIMS on 11/22/16 at 1109 by Gisselle Mena. Results were verbalized back to ALEJANDRO. 1. STAPHYLOCOCCUS AUREUS Target Route Dose RX AB Cost M.I.C. IQ ------ ----- ------ -- ------ -------- - ------ TRIMET/SULFA S <=0.5/ 9.5 * OXACILLIN R * >2 VANCOMYCIN S 1 ERYTHROMYCIN R >4 TETRACYCLINE S <=4 CLINDAMYCIN S <=0.5 DAPTOMYCIN S <=0.5 RIFAMPIN S <=1 S = SENSITIVE I = INTERMEDIATE R = RESISTANT Assessment & Plan: Assessment: * 26 y/o with infective endocarditis - culture positive for MRSA * Early/small vegetation detected on mitral valve * Pt currently being treated with Vancomycin 15mg/kg IV Q6hrs which has yielded therapeutic drug levels x 2 (17.5mcg/ml & 16.4mcg/ml). However, since organism growing is MRSA, will slightly increase dose to maintain a tough level closer to 20mcg/ml. * Pt with [place] valve * ID consulted Plan: * Continue vancomycin, increase dose slightly to maintain trough level closer to 20mcg/ml to ensure adequate drug penetration * Increase Maintenance dose to 1,100 mg (16mg/kg) IV every 6 hours * Trough tomorrow @ 1400 (this will be before the 5th dose of new dosing) * re-check trough tomorrow to ensure patient is not accumulating at such a small dosing interval Pharmacy will continue to follow and will adjust dose/frequency as necessary. Thank you
[2016-11-24] MEDS: HEPARIN SOD 5000 UNIT/0.5 ML CARP SQ SCH ×2 (09:00→20:35)
[2016-11-24] MEDS ORDERED: MAGNESIUM SULFATE 1GM / D5W 1 GM in PREMIXED IN D5W 100 ML IV ONE (09:30)
[2016-11-24] MEDS: NICOTINE 14 MG/24 HR TDSY TD SCH (10:04)
[2016-11-24] MEDS: QUETIAPINE FUMARATE 100 MG TAB PO SCH (10:05)
[2016-11-24] MEDS: FUROSEMIDE 40 MG TAB PO SCH (10:05)
[2016-11-24] MEDS: PANTOprazole INJ 40 MG in SYRINGE 0 ML IV SCH (10:05)
[2016-11-24] MEDS: METHADONE HCL 5 MG TAB PO SCH (10:09)
--- NOTE | 2016-11-24 11:35 | Family Medicine Progress Note ---
Progress Note Date of Service Nov 24, 2016. Subjective Pt evaluation today including: conversation w/ patient, physical exam, chart review, lab review, review of studies Patient lethargic and unarousable Medications Current Inpatient Medications Medications (Trade) Dose Ordered Sig/Varun Route Start Time Stop Time Status Last Admin Dose Admin Vancomycin HCl (Consult) 1 ea UD PRN N/A 11/21/16 21:30 12/21/16 21:29 Quetiapine Fumarate (seroQUEL TAB) 100 mg QAM PO 11/22/16 09:00 12/22/16 08:59 11/24/16 10:05 100 MG Quetiapine Fumarate (seroQUEL TAB) 200 mg HS PO 11/21/16 21:00 12/21/16 20:59 11/23/16 20:02 200 MG Acetaminophen (Tylenol Tab) 650 mg Q4H PRN PO 11/21/16 21:15 12/21/16 21:14 11/22/16 03:37 650 MG Magnesium Hydroxide (Milk Of Magnesia Susp) 30 ml Q6H PRN PO 11/21/16 21:15 12/21/16 21:14 Diphenhydramine HCl (Benadryl Inj) 25 mg Q4H PRN IV 11/21/16 21:15 12/21/16 21:14 11/22/16 19:19 25 MG Al Hydrox/Mg Hydrox/ Simethicone 15 ml 15 ml Q4H PRN PO 11/21/16 21:15 12/21/16 21:14 Promethazine HCl/ Sodium Chloride (Phenergan Inj/ Nss 50ml) 50.5 ml @ 202 mls/hr Q4H PRN IV 11/21/16 21:15 12/21/16 21:14 11/22/16 21:39 202 MLS/HR Zolpidem Tartrate (Ambien Tab) 5 mg HSZ PRN PO 11/21/16 21:15 12/21/16 21:14 11/22/16 21:37 5 MG Ondansetron HCl 4 mg 4 mg Q6H PRN IV 11/21/16 21:15 12/21/16 21:14 Vancomycin HCl 1000 mg/Sodium Chloride 270 ml @ 125 mls/hr Q6H IV 11/22/16 02:00 11/24/16 12:00 11/24/16 10:03 125 MLS/HR Pantoprazole Sodium/Syringe (Protonix Inj/ Syringe) 10 ml @ 5 mls/min DAILY@11 IV 11/23/16 11:00 12/23/16 10:59 11/24/16 10:05 5 MLS/MIN Heparin Sodium (Porcine) (Heparin Sq 5000 Unit/0.5ml) 5,000 unit Q12 SQ 11/22/16 21:00 12/22/16 20:59 11/23/16 21:00 5,000 UNIT Furosemide (Lasix Tab) 40 mg QAM PO 11/24/16 09:00 12/24/16 08:59 11/24/16 10:05 40 MG Lorazepam (Ativan Inj) 1 mg Q4H PRN IV 11/23/16 17:15 12/23/16 17:14 11/24/16 06:16 1 MG Hydromorphone HCl (Dilaudid Inj) 1 mg Q3H PRN IV 11/23/16 15:00 12/07/16 14:59 11/24/16 10:09 1 MG Methadone HCl (Dolophine Tab) 5 mg DAILY PO 11/24/16 09:00 12/08/16 08:59 11/24/16 10:09 5 MG Nicotine (Nicoderm Cq 14MG Patch) 1 patch QAM TD 11/24/16 09:00 12/24/16 08:59 11/24/16 10:04 1 PATCH Miscellaneous (Remove Nicoderm Patch) 1 ea HS N/A 11/23/16 21:00 12/23/16 20:59 Haloperidol Lactate 5 mg 5 mg Q6 PRN IM 11/23/16 16:45 12/23/16 16:44 Vancomycin HCl/ Sodium Chloride (Vancomycin Inj/ Nss 250ml) 272 ml @ 125 mls/hr Q6H IV 11/24/16 14:00 01/05/17 13:59 Objective Physical Exam General Appearance: no apparent distress, + pertinent finding (Patient lethargic and unarousable) Respiratory/Chest: chest non-tender, lungs clear, normal breath sounds Cardiovascular: regular rate, rhythm, no edema, no gallop, no JVD Abdomen: normal bowel sounds, non tender, soft Laboratory Results Results Past 24 Hours Test 11/23/16 19:50 11/24/16 06:20 11/24/16 06:30 Range/Units Vancomycin Level Trough 16.4 SEE COMMENT mcg/ml Sodium Level 144 136-145 mmol/L Potassium Level 3.6 3.5-5.1 mmol/L Chloride Level 108 98-107 mmol/L Carbon Dioxide Level 30 21-32 mmol/L Anion Gap 6.0 3-11 mmol/L Blood Urea Nitrogen 3 7-18 mg/dl Creatinine 0.39 0.60-1.20 mg/dl Est Creatinine Clear Calc Drug Dose 198.4 ml/min Estimated GFR () > 150.0 Estimated GFR (Non- 146.0 BUN/Creatinine Ratio 8.5 10-20 Random Glucose 83 70-99 mg/dl Calcium Level 8.5 8.5-10.1 mg/dl Magnesium Level 1.6 1.8-2.4 mg/dl White Blood Count 3.75 4.8-10.8 K/uL Red Blood Count 3.91 4.2-5.4 M/uL Hemoglobin 11.5 12.0-16.0 g/dL Hematocrit 35.4 37-47 % Mean Corpuscular Volume 90.5 80-100 fL Mean Corpuscular Hemoglobin 29.4 25-34 pg Mean Corpuscular Hemoglobin Concent 32.5 32-36 g/dl Platelet Count 125 130-400 K/uL Mean Platelet Volume 11.4 7.4-10.4 fL Neutrophils (%) (Auto) 28.6 % Lymphocytes (%) (Auto) 56.8 % Monocytes (%) (Auto) 10.9 % Eosinophils (%) (Auto) 2.9 % Basophils (%) (Auto) 0.5 % Neutrophils # (Auto) 1.07 1.4-6.5 K/uL Lymphocytes # (Auto) 2.13 1.2-3.4 K/uL Monocytes # (Auto) 0.41 0.11-0.59 K/uL Eosinophils # (Auto) 0.11 0-0.5 K/uL Basophils # (Auto) 0.02 0-0.2 K/uL RDW Standard Deviation 55.8 36.4-46.3 fL RDW Coefficient of Variation 16.7 11.5-14.5 % Immature Granulocyte % (Auto) 0.3 % Immature Granulocyte # (Auto) 0.01 0.00-0.02 K/uL Red Blood Cell Morphology Unremarkable Prothrombin Time 13.2 9.0-12.0 SECONDS Prothromb Time International Ratio 1.2 0.9-1.1 Activated Partial Thromboplast Time 28.6 21.0-31.0 SECONDS Partial Thromboplastin Ratio 1.1 Assessment and Plan Patient is a 26 year old IVDU that presented yesterday on 11/22 to the ED with chest pain, fever, and chills 1) Bacterial Endocarditis - Culture shows MRSA, await recommendations from Infectious Disease - BANDAR on 11/23: 2 possible infectious foci on mitral and tricuspid valves, with a 0.5cmx0.2cm mobile echodensity of the atrial aspect of annuloplasty ring of the tricuspid valve - History of Tricuspid Repair at [facility] [place] 2/2 Endocarditis IVDU Aug 2016 - 3 Blood Cultures, Growing Staph Aureus - TTE in ED on 11/22: Loculated pericardial effusion improved since 10/28, Thickened tricuspid valve repair with severe tricuspid regurgitation - Urine Tox positive for Urine opiates, Urine methamphetamine/ amphertiamine, and Urine Marijuana - IV Vancomycin as per renal dosing protocol, IV Cefepime 2g IV q8, IV Levofloxacin 750mg q24h - Troponin in ED < 0.015 2) Back Pain - Difficult to assess today due to patient level as consciousness as well as pain medications - Questionable for Thoracic / Lumbar Discitis or possible Epidural Abscess - Lumbar Spine CT and Thoracic Spine CT show no acute changes - MRI of Lumbar and Thoracic Spine Ordered 3) Hypomagnesemia - Magnesium 1.6 this am - Replete with 1gm Magnesium IV 4) History of CHF 2/2 to Pulmonary Regurgitation and Right Heart Failure - Lasix 40mg PO - Potassium Cl 20 mEq - Stopped IV Fluids 5) History of IVDU - Methadone 20mg to help prevent withdrawal symptoms 6) Psych - Anxiety - Ativan q4h PRN - Depression - Seroquel 100mg qAM, 200mg qHS - Sleep - Ambien 5mg PRN Sleep 7) Pain Control - Morphine 4mg q2h PRN 8) GI Prophylaxis - Protonix 9) Tobacco Abuse - Nicotine Patch 10) DVT Prophylaxis - Heparin
[2016-11-24] MEDS: VANCOMYCIN INJ 1,100 MG in SODIUM CHLORIDE 0.9% 250ML 250 ML IV SCH ×2 (13:07→20:30)
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
--- NOTE | 2016-11-24 14:01 | Cardiology Follow-Up ---
Subjective General Date of Service: Nov 24, 2016. Chief Complaint: follow up fever, bacteremia Pt evaluation today including: conversation w/ patient, physical exam History of Present Illness The patient is a 26 year old female seen in follow-up. Patient is now on contact isolation and is under one-to-one supervision. Patient denies any subjective fevers or chills. Her systolic blood pressure remains 85-100 mmHg. Telemetry reveals sinus rhythm and sinus tachycardia. Allergies Coded Allergies: No Known Allergies (Unverified , 11/21/16) Social History Smoking Status: Current Every Day Smoker Hx Tobacco Use In Past Year?: Yes Hx Alcohol Use - Type And Amou: Yes Hx Substance Use - Type And Am: Yes Problem List Medical Problems: (1) Left sided chest pain Status: Acute (2) Pneumonia Status: Acute (3) Precordial chest pain Status: Acute (4) Pulmonary infiltrate Status: Acute (5) Sepsis Status: Acute (6) Withdrawal symptoms, drug or narcotic Status: Acute Physical Exam Vital Signs Last Vital Signs Documentation Date Time Temp Pulse Resp B/P Pulse Ox O2 Delivery O2 Flow Rate FiO2 11/24/16 12:00 Room Air 11/24/16 12:00 36.8 72 16 100/64 95 11/23/16 16:00 3.0 Physical Exam Constitutional: Level of Distress: NAD Head: normocephalic Neck: supple, trachea midline Lungs: Auscultation: no wheezing, no rales/crackles Cardiovascular: Heart Auscultation: RRR, II/ RON Abdomen: Bowel Sounds: diminished Inspection & Palpation: non-distended Extremities: no edema, no varicosities Neurologic: Gait & Station: pertinent finding (no focal deficits) Assessment and Plan Assessment and Plan Impression: 26-year-old female 1. Fevers, staph aureus bacteremia, and patient with prior history of tricuspid valve endocarditis for which a tricuspid valve repair -Transesophageal echocardiogram performed 11/23/16 with the assistance of anesthesia revealed echodensity suggestive of vegetation on the tricuspid valve annuloplasty ring, as well as a subtle echodensity on the posterior mitral valve leaflet. 2. Subjective back pain 3. Severe residual tricuspid valve regurgitation, moderate pulmonary hypertension, PA systolic pressure likely 55-60 mmHg based on transthoracic/ transesophageal echocardiogram, with findings of RV volume overload Plan: Agree with stopping her IV fluids to prevent volume overload. Continue antibiotics. Proceed with MRI of the lumbar and thoracic spine to rule out epidural abscess or discitis as another cause of infection given bacteremia and subjective complaint of back pain. Plan for repeat transesophageal echocardiogram next week for further assessment. No indications for cardiac surgery intervention at the present time. Patient has a history of pulmonary embolism, also septic embolism to the lungs. She is supposed to be on subcutaneous heparin for DVT prophylaxis but she has been refusing the subcutaneous injections. Add SCDs. Laboratory Results Last 24 Hours Test 11/23/16 19:50 11/24/16 06:20 11/24/16 06:30 Vancomycin Level Trough 16.4 mcg/ml Sodium Level 144 mmol/L Potassium Level 3.6 mmol/L Chloride Level 108 mmol/L Carbon Dioxide Level 30 mmol/L Anion Gap 6.0 mmol/L Blood Urea Nitrogen 3 mg/dl Creatinine 0.39 mg/dl Est Creatinine Clear Calc Drug Dose 198.4 ml/min Estimated GFR () > 150.0 Estimated GFR (Non- 146.0 BUN/Creatinine Ratio 8.5 Random Glucose 83 mg/dl Calcium Level 8.5 mg/dl Magnesium Level 1.6 mg/dl White Blood Count 3.75 K/uL Red Blood Count 3.91 M/uL Hemoglobin 11.5 g/dL Hematocrit 35.4 % Mean Corpuscular Volume 90.5 fL Mean Corpuscular Hemoglobin 29.4 pg Mean Corpuscular Hemoglobin Concent 32.5 g/dl Platelet Count 125 K/uL Mean Platelet Volume 11.4 fL Neutrophils (%) (Auto) 28.6 % Lymphocytes (%) (Auto) 56.8 % Monocytes (%) (Auto) 10.9 % Eosinophils (%) (Auto) 2.9 % Basophils (%) (Auto) 0.5 % Neutrophils # (Auto) 1.07 K/uL Lymphocytes # (Auto) 2.13 K/uL Monocytes # (Auto) 0.41 K/uL Eosinophils # (Auto) 0.11 K/uL Basophils # (Auto) 0.02 K/uL RDW Standard Deviation 55.8 fL RDW Coefficient of Variation 16.7 % Immature Granulocyte % (Auto) 0.3 % Immature Granulocyte # (Auto) 0.01 K/uL Red Blood Cell Morphology Unremarkable Prothrombin Time 13.2 SECONDS Prothromb Time International Ratio 1.2 Activated Partial Thromboplast Time 28.6 SECONDS Partial Thromboplastin Ratio 1.1
--- NOTE | 2016-11-24 14:47 | Progress Note ---
Subjective Date of Service: Nov 24, 2016. Subjective repeat blood cultures remain negative, initial cultures with MRSA (vanco cata =1) , remains on vanco, trough today 16.4, wbc today 3.7. afebrile overnight. had psych eval, noted, on 1:1 supervision. remains lethargic. tolerating abx. For BANDAR again next week. no plans for transfer or cardiac surgery at this point, awaiting repeat echo next week to re assess TV. Ct thoracic and lumbar spine unrevealing for epidural abscess/ostoe. for mri. b/l effusion/infiltrates noted , h/o septic emboli with last IE in 2015. Problem List Medical Problems: (1) Left sided chest pain Status: Acute (2) Pneumonia Status: Acute (3) Precordial chest pain Status: Acute (4) Pulmonary infiltrate Status: Acute (5) Sepsis Status: Acute (6) Withdrawal symptoms, drug or narcotic Status: Acute Objective Vital Signs Date Time Temp Pulse Resp B/P Pulse Ox O2 Delivery O2 Flow Rate FiO2 11/24/16 12:00 Room Air 11/24/16 12:00 36.8 72 16 100/64 95 11/24/16 08:00 36.7 72 18 128/76 98 11/24/16 08:00 Room Air 11/24/16 04:00 36.9 73 16 95/62 95 Room Air 11/24/16 04:00 Room Air 11/24/16 00:01 Room Air 11/24/16 00:00 36.5 88 17 99/64 94 Room Air 11/23/16 20:00 Room Air 11/23/16 16:00 Room Air 3.0 11/23/16 15:42 36.9 74 18 101/61 96 Room Air Laboratory Results Item Value Date Time Blood Culture - Final Complete 11/21/16 1834 Blood Staphylococcus Aureus Blood Culture - Final Complete 11/21/16 1841 Blood Staphylococcus Aureus Blood Culture - Final Complete 11/21/16 1851 Blood Staphylococcus Aureus Blood Culture - Preliminary Resulted 11/22/16 1945 Blood NO GROWTH TO DATE. Blood Culture - Preliminary Resulted 11/22/16 1950 Blood NO GROWTH TO DATE. Last 24 Hours Test 11/23/16 19:50 11/24/16 06:20 11/24/16 06:30 Vancomycin Level Trough 16.4 mcg/ml Sodium Level 144 mmol/L Potassium Level 3.6 mmol/L Chloride Level 108 mmol/L Carbon Dioxide Level 30 mmol/L Anion Gap 6.0 mmol/L Blood Urea Nitrogen 3 mg/dl Creatinine 0.39 mg/dl Est Creatinine Clear Calc Drug Dose 198.4 ml/min Estimated GFR () > 150.0 Estimated GFR (Non- 146.0 BUN/Creatinine Ratio 8.5 Random Glucose 83 mg/dl Calcium Level 8.5 mg/dl Magnesium Level 1.6 mg/dl White Blood Count 3.75 K/uL Red Blood Count 3.91 M/uL Hemoglobin 11.5 g/dL Hematocrit 35.4 % Mean Corpuscular Volume 90.5 fL Mean Corpuscular Hemoglobin 29.4 pg Mean Corpuscular Hemoglobin Concent 32.5 g/dl Platelet Count 125 K/uL Mean Platelet Volume 11.4 fL Neutrophils (%) (Auto) 28.6 % Lymphocytes (%) (Auto) 56.8 % Monocytes (%) (Auto) 10.9 % Eosinophils (%) (Auto) 2.9 % Basophils (%) (Auto) 0.5 % Neutrophils # (Auto) 1.07 K/uL Lymphocytes # (Auto) 2.13 K/uL Monocytes # (Auto) 0.41 K/uL Eosinophils # (Auto) 0.11 K/uL Basophils # (Auto) 0.02 K/uL RDW Standard Deviation 55.8 fL RDW Coefficient of Variation 16.7 % Immature Granulocyte % (Auto) 0.3 % Immature Granulocyte # (Auto) 0.01 K/uL Red Blood Cell Morphology Unremarkable Prothrombin Time 13.2 SECONDS Prothromb Time International Ratio 1.2 Activated Partial Thromboplast Time 28.6 SECONDS Partial Thromboplastin Ratio 1.1 Assessment and Plan (1) Infectious endocarditis Assessment & Plan: She will continue on IV abx, maintain vanco for now. repeat culture negative so far. afebrile. mri pending, c/o back pain intermittently, r/ o epidural collection, osteo. Will require prolonged course of IV abx, will not be a candidate for picc line with active IVDA and recurrent IE. Repeat BANDAR to be done early next week to reassess and valve and make further decisions regarding surgical intervention. Once echo is complete and decision regarding surgery reached can make additional recs with regards to abx. (2) Staphylococcus aureus septicemia Continued [facility] stay due to: multiple IV medications needed Discharge planning: uncertain Problem Qualifiers (1) Infectious endocarditis: Infective endocarditis organism: bacterial Chronicity: unspecified Qualified Codes: I33.0 - Acute and subacute infective endocarditis
[2016-11-24] MEDS: QUETIAPINE FUMARATE 200 MG TAB PO SCH (20:34)
[2016-11-24] MEDS: HALOPERIDOL LACTATE 5 MG/ML 1 ML VIAL IM PRN (20:44)
--- NOTE | 2016-11-24 22:26 | DIAGNOSTIC IMAGING REPORT ---
MRI THORACIC SPINE WITHOUT CLINICAL HISTORY: Back Pain, Endocarditis PRIOR STUDIES: None TECHNIQUE: MR scanning of the thoracic spine was performed using multiple pulse sequences. No gadolinium was administered. FINDINGS: The patient was medicated. The patient was costophrenic. The patient was unable to complete the study, and the examination was performed without gadolinium. On the transition assistant images, there is mild splenomegaly. There are disc bulges the T7-8 and T8-T9 levels. Vertebral bodies are normal in height and alignment. There is a focal fatty rest at the L1 level. There are no signal abnormalities to indicate osteomyelitis or discitis. The spinal cord is unremarkable. There are suspected bilateral apical pulmonary nodules. There is a nonspecific 23 mm anterior T1 and T2 bright lesion in the retroxiphoid portion the chest. Chest CT scanning is recommended in follow-up IMPRESSION: 1. No intrinsic thoracic cord lesions identified. No evidence of discitis/osteomyelitis 2. Disc bulges the T7-8 and T8-T9 levels 3. Probable bilateral pulmonary nodules 4. Nonspecific 23 mm T1 and T2 bright lesion in the retroxiphoid portion of the chest. Chest CT scanning is recommended in follow-up Electronically signed by: Will Judd M.D. 11/24/2016 10:25 PM Dictated Date/Time: 11/24/2016 10:15 PM
[2016-11-25] VITALS (10 sets, daily range): BP systolic 73–129; BP diastolic 47–72; PULSE 62–92; TEMP 36.5–36.8; O2SAT 93–98
[2016-11-25] MEDS: VANCOMYCIN INJ 1,100 MG in SODIUM CHLORIDE 0.9% 250ML 250 ML IV SCH ×3 (02:03→14:43)
[2016-11-25] MEDS: HYDROmorphone INJ 1 MG/ML SYR IV PRN ×4 (02:04→21:58)
[2016-11-25 06:22] LABS: HEMATOCRIT 38.9 % (37-47); MEAN CELL VOLUME 90.7 fL (80-100); MEAN CORPUSCULAR HEMOGLOBIN 29.1 pg (25-34); MEAN CORPUSCULAR HGB CONC 32.1 g/dl (32-36); MEAN PLATELET VOLUME 11.4 fL (7.4-10.4); PLATELET COUNT 142 K/uL (130-400); RED BLOOD COUNT 4.29 M/uL (4.2-5.4); WHITE BLOOD COUNT 3.99 K/uL (4.8-10.8)
[2016-11-25 07:42] LABS: BLOOD UREA NITROGEN 6 mg/dl (7-18); BUN/CREATININE RATIO 12.9 (10-20); CALCIUM 8.9 mg/dl (8.5-10.1); CARBON DIOXIDE 31 mmol/L (21-32); CHLORIDE 101 mmol/L (98-107); CREATININE 0.49 mg/dl (0.60-1.20); GLUCOSE 103 mg/dl (70-99); MAGNESIUM 1.6 mg/dl (1.8-2.4); POTASSIUM 3.8 mmol/L (3.5-5.1); SODIUM 140 mmol/L (136-145)
[2016-11-25] MEDS: METHADONE HCL 5 MG TAB PO SCH (08:38)
[2016-11-25] MEDS: HEPARIN SOD 5000 UNIT/0.5 ML CARP SQ SCH (08:38)
[2016-11-25] MEDS: QUETIAPINE FUMARATE 100 MG TAB PO SCH (08:39)
[2016-11-25] MEDS: NICOTINE 14 MG/24 HR TDSY TD SCH (08:39)
[2016-11-25] MEDS: PANTOprazole SOD 40 MG TAB PO SCH (08:40)
[2016-11-25] MEDS: FUROSEMIDE 40 MG TAB PO SCH (08:40)
--- NOTE | 2016-11-25 10:13 | Family Medicine Progress Note ---
Progress Note Date of Service Nov 25, 2016. Subjective Pt evaluation today including: conversation w/ patient, physical exam, chart review, lab review, review of studies Pain: 8/10 Back pain reported this morning Voiding: no voiding problems Constitutional: No chills, No fever, No sweats Respiratory: No cough, No shortness of breath, No sputum, No wheezing Cardiovascular: No chest pain, No edema Abdomen: No nausea, No pain, No vomiting Musculoskeletal: + problem reported (Back Pain) Psychiatric: + substance abuse Medications Current Inpatient Medications Medications (Trade) Dose Ordered Sig/Varun Route Start Time Stop Time Status Last Admin Dose Admin Vancomycin HCl (Consult) 1 ea UD PRN N/A 11/21/16 21:30 12/21/16 21:29 Quetiapine Fumarate (seroQUEL TAB) 100 mg QAM PO 11/22/16 09:00 12/22/16 08:59 11/25/16 08:39 100 MG Quetiapine Fumarate (seroQUEL TAB) 200 mg HS PO 11/21/16 21:00 12/21/16 20:59 11/24/16 20:34 200 MG Acetaminophen (Tylenol Tab) 650 mg Q4H PRN PO 11/21/16 21:15 12/21/16 21:14 11/22/16 03:37 650 MG Magnesium Hydroxide (Milk Of Magnesia Susp) 30 ml Q6H PRN PO 11/21/16 21:15 12/21/16 21:14 Diphenhydramine HCl (Benadryl Inj) 25 mg Q4H PRN IV 11/21/16 21:15 12/21/16 21:14 11/22/16 19:19 25 MG Al Hydrox/Mg Hydrox/ Simethicone 15 ml 15 ml Q4H PRN PO 11/21/16 21:15 12/21/16 21:14 Promethazine HCl/ Sodium Chloride (Phenergan Inj/ Nss 50ml) 50.5 ml @ 202 mls/hr Q4H PRN IV 11/21/16 21:15 12/21/16 21:14 11/22/16 21:39 202 MLS/HR Zolpidem Tartrate (Ambien Tab) 5 mg HSZ PRN PO 11/21/16 21:15 12/21/16 21:14 11/22/16 21:37 5 MG Ondansetron HCl (Zofran Inj) 4 mg Q6H PRN IV 11/21/16 21:15 12/21/16 21:14 Heparin Sodium (Porcine) (Heparin Sq 5000 Unit/0.5ml) 5,000 unit Q12 SQ 11/22/16 21:00 12/22/16 20:59 11/24/16 20:35 5,000 UNIT Furosemide (Lasix Tab) 40 mg QAM PO 11/24/16 09:00 12/24/16 08:59 11/25/16 08:40 40 MG Lorazepam (Ativan Inj) 1 mg Q4H PRN IV 11/23/16 17:15 12/23/16 17:14 11/24/16 20:27 1 MG Hydromorphone HCl (Dilaudid Inj) 1 mg Q3H PRN IV 11/23/16 15:00 12/07/16 14:59 11/25/16 06:09 1 MG Methadone HCl (Dolophine Tab) 5 mg DAILY PO 11/24/16 09:00 12/08/16 08:59 11/25/16 08:38 5 MG Nicotine (Nicoderm Cq 14MG Patch) 1 patch QAM TD 11/24/16 09:00 12/24/16 08:59 11/25/16 08:39 1 PATCH Miscellaneous (Remove Nicoderm Patch) 1 ea HS N/A 11/23/16 21:00 12/23/16 20:59 11/24/16 21:15 1 EA Haloperidol Lactate 5 mg 5 mg Q6 PRN IM 11/23/16 16:45 12/23/16 16:44 11/24/16 20:44 5 MG Vancomycin HCl/ Sodium Chloride (Vancomycin Inj/ Nss 250ml) 272 ml @ 125 mls/hr Q6H IV 11/24/16 14:00 01/05/17 13:59 11/25/16 08:38 125 MLS/HR Pantoprazole Sodium (Protonix Tab) 40 mg QAM PO 11/25/16 09:00 12/25/16 08:59 11/25/16 08:40 40 MG Objective Vital Signs Date Time Temp Pulse Resp B/P Pulse Ox O2 Delivery O2 Flow Rate FiO2 11/25/16 08:35 99/63 11/25/16 08:14 36.7 62 16 73/47 96 Room Air 11/25/16 08:00 Room Air 11/25/16 04:00 97 Room Air 11/25/16 03:40 36.6 64 14 95/58 93 Room Air 11/25/16 00:00 97 Room Air 11/24/16 22:54 36.7 84 18 110/75 96 Room Air 11/24/16 22:03 97 Room Air 11/24/16 20:26 77 100/73 97 Room Air 11/24/16 19:20 36.3 74 18 99/61 94 Room Air 11/24/16 15:30 96 Room Air 11/24/16 15:06 36.7 77 14 91/61 96 Room Air 11/24/16 12:00 Room Air 11/24/16 12:00 36.8 72 16 100/64 95 Physical Exam General Appearance: WD/WN, no apparent distress Eyes: normal inspection, sclerae normal Respiratory/Chest: chest non-tender, lungs clear, normal breath sounds, no accessory muscle use Cardiovascular: regular rate, rhythm, no edema, no gallop, + diastolic murmur Abdomen: normal bowel sounds, non tender, soft Extremities: non-tender (No pain with palpation of spine), normal inspection, no calf tenderness Laboratory Results Results Past 24 Hours Test 11/25/16 06:00 Range/Units White Blood Count 3.99 4.8-10.8 K/uL Red Blood Count 4.29 4.2-5.4 M/uL Hemoglobin 12.5 12.0-16.0 g/dL Hematocrit 38.9 37-47 % Mean Corpuscular Volume 90.7 80-100 fL Mean Corpuscular Hemoglobin 29.1 25-34 pg Mean Corpuscular Hemoglobin Concent 32.1 32-36 g/dl RDW Standard Deviation 54.8 36.4-46.3 fL RDW Coefficient of Variation 16.5 11.5-14.5 % Platelet Count 142 130-400 K/uL Mean Platelet Volume 11.4 7.4-10.4 fL Sodium Level 140 136-145 mmol/L Potassium Level 3.8 3.5-5.1 mmol/L Chloride Level 101 98-107 mmol/L Carbon Dioxide Level 31 21-32 mmol/L Anion Gap 8.0 3-11 mmol/L Blood Urea Nitrogen 6 7-18 mg/dl Creatinine 0.49 0.60-1.20 mg/dl Est Creatinine Clear Calc Drug Dose 177.0 ml/min Estimated GFR () > 150.0 Estimated GFR (Non- 135.4 BUN/Creatinine Ratio 12.9 10-20 Random Glucose 103 70-99 mg/dl Calcium Level 8.9 8.5-10.1 mg/dl Magnesium Level 1.6 1.8-2.4 mg/dl Assessment and Plan Patient is a 26 year old IVDU that presented on 11/22 to the ED with chest pain, fever, and chills 1) Bacterial Endocarditis - Blood Cultures grew MRSA - Plan is to continue with IV antibiotic therapy until scheduled BANDAR next week to reevaluate valvular lesions - After BANDAR ID will make recommendations of continue antibiotic treatment complicated by patients IVDU - BANDAR on 11/23: 2 possible infectious foci on mitral and tricuspid valves, with a 0.5cmx0.2cm mobile echodensity of the atrial aspect of annuloplasty ring of the tricuspid valve - History of Tricuspid Repair at [facility] 2/2 Endocarditis IVDU Aug 2016 - TTE in ED on 11/22: Loculated pericardial effusion improved since 10/28, Thickened tricuspid valve repair with severe tricuspid regurgitation - Urine Tox positive for Urine opiates, Urine methamphetamine/ amphertiamine, and Urine Marijuana - IV Vancomycin as per renal dosing protocol, IV Cefepime 2g IV q8, IV Levofloxacin 750mg q24h - Troponin in ED < 0.015 2) Back Pain - CT L/T Spine Show no acute abnormalities - MRI T-Spine shows no evidence of discitis/osteomyelitis - MRI does show disc bulges the T7-8 and T8-T9 levels 3) Chest Lesion on MRI - Nonspecific 23 mm T1 and T2 bright lesion in the retroxiphoid portion of the chest seen on MRI - Chest CT with contrast ordered to evaluate 4) Hypomagnesemia - Magnesium 1.6 this am - Replete with 1gm Magnesium IV 5) History of CHF 2/2 to Pulmonary Regurgitation and Right Heart Failure - Lasix 40mg PO - Potassium Cl 20 mEq - Stopped IV Fluids to prevent fluid overload 6) History of IVDU - Methadone 20mg to help prevent withdrawal symptoms - Orders for Suboxone placed 7) Psych - Anxiety - Ativan q4h PRN - Depression - Seroquel 100mg qAM, 200mg qHS - Sleep - Ambien 5mg PRN Sleep 8) Pain Control - Morphine 4mg q2h PRN 9) GI Prophylaxis - Protonix 10) Tobacco Abuse - Nicotine Patch 11) DVT Prophylaxis - Heparin
[2016-11-25] MEDS ORDERED: MAGNESIUM SULFATE 1GM / D5W 1 GM in PREMIXED IN D5W 100 ML IV ONE (10:15)
[2016-11-25] MEDS ORDERED: OPTIRAY 320 IV PRN (10:15)
--- NOTE | 2016-11-25 11:19 | DIAGNOSTIC IMAGING REPORT ---
CT OF THE CHEST WITH IV CONTRAST CLINICAL HISTORY: Endocarditis. Mediastinal lesion visualized on MRI examination of the thoracic spine. COMPARISON STUDY: CT scan dated 05/28/2016, MRI the thoracic spine dated 11/24/2016 TECHNIQUE: Following the IV administration of 90 mL of Optiray-320, CT of the thorax was performed from the thoracic inlet to the lung bases. Images are reviewed in the axial, sagittal, and coronal planes. IV contrast was administered without complication. CT DOSE: 207.76 mGycm FINDINGS: Thyroid: Imaged portions of the thyroid gland are normal in appearance. Thoracic aorta: The thoracic aorta is normal in course and caliber, noting standard 3-vessel arch anatomy. No aneurysm or dissection is seen. Pulmonary vasculature: There is a calcification the region of the right lower lobe pulmonary artery proximally. There is an equivocal small filling defect within a right lower lobe pulmonary artery branch. Chronic emboli must be considered HEART: There are postsurgical changes of a midline sternotomy. There is a new 32 mm retrosternal fluid collection abutting the pericardium. This corresponds to the lesion described on MRI scanning. No air is visualized in the collection. Given history of surgery this may represent a postsurgical organizing hematoma. An abscess however cannot be excluded. Lungs and pleural spaces: There are small bilateral pleural effusions left greater than right. There is bibasal atelectasis. There are scattered ill-defined bilateral pulmonary opacities. An infectious/inflammatory etiology is favored. Mediastinum: Mediastinal lymph nodes are the upper limits of normal in size. [place]: There is no evidence of pathologic hilar adenopathy Axilla: Clear. Upper abdomen: Partially visualized upper abdominal viscera is within normal limits. Skeletal structures: There are no lytic or blastic osseous lesions. IMPRESSION: 1. Interval midline sternotomy. New 32 mm retrosternal fluid collection abutting the pericardium. While likely are presenting a postsurgical organizing hematoma, an abscess cannot be excluded. 2. Possible chronic pulmonary emboli 3. Small bilateral pleural effusions 4. Scattered ill-defined bilateral pulmonary nodular opacities. An infectious/inflammatory etiology is favored Electronically signed by: Will Judd M.D. 11/25/2016 11:17 AM Dictated Date/Time: 11/25/2016 11:09 AM
[2016-11-25] MEDS ORDERED: VANCOMYCIN TROUGH SCH (13:30)
--- NOTE | 2016-11-25 13:42 | Cardiology Follow-Up ---
Subjective General Date of Service: Nov 25, 2016. Chief Complaint: follow up fever, bacteremia Pt evaluation today including: conversation w/ patient, physical exam History of Present Illness The patient is a 26 year old female seen in follow up. Patient feeling well. Alert conversant her current medication regimen. HR controlled. Low BP measurements noted, but patient is asymptomatic. Allergies Coded Allergies: No Known Allergies (Unverified , 11/21/16) Social History Smoking Status: Current Every Day Smoker Hx Tobacco Use In Past Year?: Yes Hx Alcohol Use - Type And Amou: Yes Hx Substance Use - Type And Am: Yes Problem List Medical Problems: (1) Left sided chest pain Status: Acute (2) Pneumonia Status: Acute (3) Precordial chest pain Status: Acute (4) Pulmonary infiltrate Status: Acute (5) Sepsis Status: Acute (6) Withdrawal symptoms, drug or narcotic Status: Acute Physical Exam Vital Signs Last Vital Signs Documentation Date Time Temp Pulse Resp B/P Pulse Ox O2 Delivery O2 Flow Rate FiO2 11/25/16 12:00 Room Air 11/25/16 11:31 36.8 75 16 80/49 94 11/23/16 16:00 3.0 Physical Exam Constitutional: Level of Distress: NAD Head: normocephalic Neck: supple, trachea midline Lungs: Auscultation: no wheezing, no rales/crackles Cardiovascular: Heart Auscultation: RRR, II/ RON Abdomen: Bowel Sounds: diminished Inspection & Palpation: non-distended Extremities: no edema, no varicosities Neurologic: Gait & Station: pertinent finding (no focal deficits) Assessment and Plan Assessment and Plan Impression: 26-year-old female 1. 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 Per [facility] [place] initially treated for MSSA with 6 weeks of Nafcillin prior to surgery in 2015. -Transesophageal echocardiogram performed 11/23/16 with the assistance of anesthesia revealed echodensity suggestive of sbublte vegetation on the tricuspid valve annuloplasty ring, as well as a subtle echodensity on the posterior mitral valve leaflet. 2. CT chest 11/25/16 with a 3.2 cm fluid collection adjacent to the right side of sternum and pericardium. 3. Back pain resolved, no epidural abscess on MRI 4. Severe residual tricuspid valve regurgitation, moderate pulmonary hypertension, PA systolic pressure likely 55-60 mmHg based on transthoracic/ transesophageal echocardiogram, with findings of RV volume overload Plan: Continue vancomycin. I transmitted her BANDAR and CT images to the [facility] PACs system and reviewed case with Dr Harding who performed her cardiac surgery. Dr Harding recommends continued antibiotics, close follow up with repeat BANDAR next week. No indications for cardiac surgery intervention at the present time. Patient has a history of pulmonary embolism, also septic embolism to the lungs. She is supposed to be on subcutaneous heparin for DVT prophylaxis but she has been refusing the subcutaneous injections. I encouraged pt to accept the injections as repeat DVT / PE could be fatal and she is certainly at risk given her stasis, acute illness. Will change to lovenox so she only has them once per day. I Laboratory Results Last 24 Hours Test 11/25/16 06:00 11/25/16 13:30 White Blood Count 3.99 K/uL Red Blood Count 4.29 M/uL Hemoglobin 12.5 g/dL Hematocrit 38.9 % Mean Corpuscular Volume 90.7 fL Mean Corpuscular Hemoglobin 29.1 pg Mean Corpuscular Hemoglobin Concent 32.1 g/dl RDW Standard Deviation 54.8 fL RDW Coefficient of Variation 16.5 % Platelet Count 142 K/uL Mean Platelet Volume 11.4 fL Sodium Level 140 mmol/L Potassium Level 3.8 mmol/L Chloride Level 101 mmol/L Carbon Dioxide Level 31 mmol/L Anion Gap 8.0 mmol/L Blood Urea Nitrogen 6 mg/dl Creatinine 0.49 mg/dl Est Creatinine Clear Calc Drug Dose 177.0 ml/min Estimated GFR () > 150.0 Estimated GFR (Non- 135.4 BUN/Creatinine Ratio 12.9 Random Glucose 103 mg/dl Calcium Level 8.9 mg/dl Magnesium Level 1.6 mg/dl
[2016-11-25] MEDS ORDERED: ENOXAPARIN 40 MG/0.4 ML SYR SQ ONE (13:45)
[2016-11-25] MEDS ORDERED: HYDROmorphone INJ 0.5 MG/0.5 ML SYR ONE (17:03)
[2016-11-25] MEDS ORDERED: HYDROmorphone INJ 0.5 MG/0.5 ML SYR IV STA (17:03)
[2016-11-25] MEDS ORDERED: LORAZEPAM 2 MG/ML 1 ML VIAL IV PRN (17:15)
[2016-11-25] MEDS: QUETIAPINE FUMARATE 200 MG TAB PO SCH (20:40)
[2016-11-25] MEDS: VANCOMYCIN INJ 1,000 MG in SODIUM CHLORIDE 0.9% 250ML 250 ML IV SCH (21:58)
[2016-11-26] VITALS (7 sets, daily range): BP systolic 80–97; BP diastolic 41–62; PULSE 54–80; TEMP 36.5–36.8; O2SAT 95–97
[2016-11-26] MEDS: VANCOMYCIN INJ 1,000 MG in SODIUM CHLORIDE 0.9% 250ML 250 ML IV SCH ×2 (04:35→10:33)
[2016-11-26] MEDS: HYDROmorphone INJ 1 MG/ML SYR IV PRN (08:55)
[2016-11-26] MEDS: PANTOprazole SOD 40 MG TAB PO SCH (08:57)
[2016-11-26] MEDS: FUROSEMIDE 40 MG TAB PO SCH (08:57)
[2016-11-26 08:59] LABS: COD UR NEGATIVE NG/ML (CUTOFF=50); HYDROCOD UR NEGATIVE NG/ML (CUTOFF=50); HYDROMOR UR NEGATIVE NG/ML (CUTOFF=50); MORPHINE UR 1890 NG/ML (CUTOFF=50); NORHYDROCODONE CONF UR NEGATIVE NG/ML (CUTOFF=50); OXYMORPH UR NEGATIVE NG/ML (CUTOFF=50)
[2016-11-26] MEDS: QUETIAPINE FUMARATE 100 MG TAB PO SCH (09:18)
[2016-11-26] MEDS: BUPRENORPHINE/NALOXONE 2/0.5MG 1 TAB PO SCH (09:19)
[2016-11-26] MEDS: ENOXAPARIN 40 MG/0.4 ML SYR SQ SCH (09:19)
[2016-11-26] MEDS: NICOTINE 21 MG/24 HR TDSY TD SCH (09:23)
--- NOTE | 2016-11-26 10:20 | Psychiatric Progress Notes ---
Psychiatric Progress Note Date of Service Nov 26, 2016. Notes ID: Patient reviewed with liaison nurse. Initial consult reviewed. Remains on contact precautions. CC: "I don't know what I'm willing to do" HPI: she has been cooperative with medical treatment, not happy about it, asked if willing to go to a rehab program, won't commit at this time. States her mood is fine and denies SI. ROS: denied CP/SOB, GI issues MSE: alert, cooperative, constricted affect, thoughts organized, no SI/HI/toure. Imp: unspecified mood disorder with polysubstance dependence Plan: ROIs for outpatient providers as maintaining Seroquel and Suboxone here substance abuse is primary concern and would recommend rehab programming
[2016-11-26] MEDS: ACETAMINOPHEN 325 MG TAB PO PRN (12:58)
[2016-11-26] MEDS ORDERED: VANCOMYCIN TROUGH ONE ×2 (13:30→15:30)
--- NOTE | 2016-11-26 13:50 | Family Medicine Progress Note ---
Progress Note Date of Service Nov 26, 2016. Subjective Pt evaluation today including: conversation w/ patient, physical exam, chart review, lab review, review of studies Pain: Patient complaining of back pain Voiding: no voiding problems Patient is doing well today, resting comfortably in bed and more alert than yesterday. Denies any fevers, chills, shortness of breath, or chest pain. Still complaining of dull back pain that does not radiate. Constitutional: No chills, No fever, No sweats, No weight loss Respiratory: No cough, No sputum, No wheezing Cardiovascular: No PND, No chest pain, No orthopnea Abdomen: No nausea, No pain, No vomiting Musculoskeletal: + problem reported (back pain) Medications Current Inpatient Medications Medications (Trade) Dose Ordered Sig/Varun Route Start Time Stop Time Status Last Admin Dose Admin Vancomycin HCl (Consult) 1 ea UD PRN N/A 11/21/16 21:30 12/21/16 21:29 Quetiapine Fumarate (seroQUEL TAB) 100 mg QAM PO 11/22/16 09:00 12/22/16 08:59 11/26/16 09:18 100 MG Quetiapine Fumarate (seroQUEL TAB) 200 mg HS PO 11/21/16 21:00 12/21/16 20:59 11/25/16 20:40 200 MG Acetaminophen (Tylenol Tab) 650 mg Q4H PRN PO 11/21/16 21:15 12/21/16 21:14 11/26/16 12:58 650 MG Magnesium Hydroxide (Milk Of Magnesia Susp) 30 ml Q6H PRN PO 11/21/16 21:15 12/21/16 21:14 Diphenhydramine HCl (Benadryl Inj) 25 mg Q4H PRN IV 11/21/16 21:15 12/21/16 21:14 11/22/16 19:19 25 MG Al Hydrox/Mg Hydrox/ Simethicone 15 ml 15 ml Q4H PRN PO 11/21/16 21:15 12/21/16 21:14 Promethazine HCl/ Sodium Chloride (Phenergan Inj/ Nss 50ml) 50.5 ml @ 202 mls/hr Q4H PRN IV 11/21/16 21:15 12/21/16 21:14 11/22/16 21:39 202 MLS/HR Zolpidem Tartrate (Ambien Tab) 5 mg HSZ PRN PO 11/21/16 21:15 12/21/16 21:14 11/22/16 21:37 5 MG Ondansetron HCl (Zofran Inj) 4 mg Q6H PRN IV 11/21/16 21:15 12/21/16 21:14 Furosemide (Lasix Tab) 40 mg QAM PO 11/24/16 09:00 12/24/16 08:59 11/26/16 08:57 40 MG Haloperidol Lactate (Haldol Inj) 5 mg Q6 PRN IM 11/23/16 16:45 12/23/16 16:44 11/24/16 20:44 5 MG Pantoprazole Sodium (Protonix Tab) 40 mg QAM PO 11/25/16 09:00 12/25/16 08:59 11/26/16 08:57 40 MG Ioversol (Optiray 320) 125 ml UD PRN IV 11/25/16 10:15 11/29/16 10:14 Buprenorphine/ Naloxone (Suboxone Tab) 4 tab QAM PO 11/26/16 09:00 12/26/16 08:59 11/26/16 09:19 4 TAB Lorazepam (Ativan Inj) 0.5 mg Q4H PRN IV 11/25/16 17:15 12/25/16 17:14 Enoxaparin Sodium 40 mg 40 mg QAM SQ 11/26/16 09:00 12/26/16 08:59 11/26/16 09:19 40 MG Vancomycin HCl/ Sodium Chloride (Vancomycin Inj/ Nss 250ml) 270 ml @ 125 mls/hr Q6H IV 11/25/16 20:00 01/06/17 19:59 11/26/16 10:33 125 MLS/HR Nicotine (Nicoderm Cq 21MG Patch) 1 patch QAM TD 11/26/16 09:00 12/26/16 08:59 11/26/16 09:23 1 PATCH Miscellaneous (Remove Nicoderm Patch) 1 ea HS N/A 11/25/16 21:00 12/25/16 20:59 11/25/16 20:40 1 EA Objective Vital Signs Date Time Temp Pulse Resp B/P Pulse Ox O2 Delivery O2 Flow Rate FiO2 11/26/16 12:43 36.5 67 16 80/41 95 Room Air 11/26/16 12:30 Room Air 11/26/16 08:30 Room Air 11/26/16 07:26 36.7 66 16 97/60 96 Room Air 11/26/16 04:00 Room Air 11/26/16 03:00 36.8 57 22 94/57 95 Room Air 11/26/16 00:30 36.6 54 20 96/62 95 Room Air 11/26/16 00:00 Room Air 11/25/16 20:00 Room Air 11/25/16 19:07 36.7 67 16 93/58 95 Room Air 11/25/16 16:00 Room Air 11/25/16 15:32 36.7 92 16 102/72 98 Room Air 11/25/16 14:22 98/64 Physical Exam General Appearance: WD/WN, no apparent distress Eyes: normal inspection, sclerae normal Respiratory/Chest: chest non-tender, lungs clear, normal breath sounds, no respiratory distress, no accessory muscle use Cardiovascular: regular rate, rhythm, no edema, no gallop, no JVD, + diastolic murmur Abdomen: normal bowel sounds, non tender, soft Extremities: no calf tenderness Neurologic/Psychiatric: no motor/sensory deficits, alert, oriented x 3 Laboratory Results Results Past 24 Hours Test 11/25/16 15:01 11/26/16 09:26 Range/Units Vancomycin Level Trough 21.9 SEE COMMENT mcg/ml Magnesium Level 1.7 1.8-2.4 mg/dl Assessment and Plan Patient is a 26 year old IVDU that presented on 11/22 to the ED with chest pain, fever, and chills 1) Bacterial Endocarditis - Dr. Peguero has discussed case with patients cardiac surgeon Dr. Harding from [facility] who recommended continued antibiotics, close follow up, and BANDAR next week - Blood Cultures grew MRSA - Plan is to continue with IV antibiotic therapy until scheduled BANDAR next week to reevaluate valvular lesions - After BANDAR ID will make recommendations of continue antibiotic treatment complicated by patients IVDU - BANDAR on 11/23: 2 possible infectious foci on mitral and tricuspid valves, with a 0.5cmx0.2cm mobile echodensity of the atrial aspect of annuloplasty ring of the tricuspid valve - History of Tricuspid Repair at [facility] 2/2 Endocarditis IVDU Aug 2016 - TTE in ED on 11/22: Loculated pericardial effusion improved since 10/28, Thickened tricuspid valve repair with severe tricuspid regurgitation - Urine Tox positive for Urine opiates, Urine methamphetamine/ amphertiamine, and Urine Marijuana - IV Vancomycin as per renal dosing protocol, IV Cefepime 2g IV q8, IV Levofloxacin 750mg q24h - Troponin in ED < 0.015 2) Back Pain - CT L/T Spine Show no acute abnormalities - MRI T-Spine shows no evidence of discitis/osteomyelitis - MRI does show disc bulges the T7-8 and T8-T9 levels 3) Chest Lesion on MRI - Nonspecific 23 mm T1 and T2 bright lesion in the retroxiphoid portion of the chest seen on MRI - Chest CT - New 32mm retrostrenal fluid collection, most likely postsurgical hematoma vs abscess 4) Hypomagnesemia - Magnesium 1.7 this am - Replete with 2gm Magnesium IV 5) History of CHF 2/2 to Pulmonary Regurgitation and Right Heart Failure - Lasix 40mg PO - Potassium Cl 20 mEq - Stopped IV Fluids to prevent fluid overload 6) History of IVDU - Methadone 20mg to help prevent withdrawal symptoms - Orders for Suboxone placed 7) Psych - Anxiety - Ativan q4h PRN - Depression - Seroquel 100mg qAM, 200mg qHS - Sleep - Ambien 5mg PRN Sleep 8) Pain Control - Morphine 4mg q2h PRN 9) GI Prophylaxis - Protonix 10) Tobacco Abuse - Nicotine Patch 11) DVT Prophylaxis - Heparin
[2016-11-26] MEDS: MAGNESIUM SULFATE 1GM / D5W 1 GM in PREMIXED IN D5W 100 ML IV SCH ×2 (15:44→18:07)
--- NOTE | 2016-11-26 17:44 | Pharmacy Progress Note ---
Pharmacy Antibiotic Prog Note Date of Service: Nov 26, 2016. Subjective: The patient is currently receiving vancomycin 1000 mg IV every 6 hours. The patient is currently on day # of vancomycin IV therapy. Objective: Height (Feet): 5 Height (Inches): 5.00 Weight (Kilograms): 74.600 Levels: Item Value Date Time Vancomycin Level Trough 27.5 mcg/ml 11/26/16 1536 Recent Pertinent Medications: Item Value Date Time Cefepime HCl 2000 112.5 ml @ 200 mls/hr 11/21/16 1808 mg/Dextrose NOW STAT/IV 11/21/16 1915 Cefepime HCl 2000 112.5 ml @ 200 mls/hr 11/22/16 0400 mg/Dextrose Q8H/IV 11/23/16 0412 Levofloxacin 750 150 ml @ 100 mls/hr 11/22/16 2000 mg/Prmx Q24H/IV 11/22/16 2135 Assessment & Plan: Vancomycin in 26 yo patient with infective endocarditis (MRSA). This drug level (27.5mcg/ml) is Supratherapeutic, although prior dose was hung 30 minutes late, affecting trough level since interval is short. Change to vancomycin 1200 mg IV every 8 hours (16mg/kg). Increase dose slightly and lengthen interval to decrease trough to below 20mcg/ml. Goal trough level estimate: between 18 - 20 mcg/mL Peak and trough or random level has been ordered for: 11/27 prior to 1200 dose to make sure pt is not accumulating. Pharmacy will continue to follow and will adjust dose/frequency as necessary. Thank you
[2016-11-26] MEDS: VANCOMYCIN INJ 1,200 MG in SODIUM CHLORIDE 0.9% 250ML 250 ML IV SCH (20:54)
[2016-11-26] MEDS: QUETIAPINE FUMARATE 200 MG TAB PO SCH (20:54)
[2016-11-27] MEDS: VANCOMYCIN INJ 1,200 MG in SODIUM CHLORIDE 0.9% 250ML 250 ML IV SCH ×2 (04:21→12:50)
[2016-11-27 04:30] VITALS: BP 80/48; PULSE 66; TEMP 36.5; O2SAT 95
[2016-11-27 08:00] VITALS: BP 86/54; PULSE 56; TEMP 36.6; O2SAT 95
[2016-11-27] MEDS: QUETIAPINE FUMARATE 100 MG TAB PO SCH (08:04)
[2016-11-27] MEDS: FUROSEMIDE 40 MG TAB PO SCH (08:05)
[2016-11-27] MEDS: PANTOprazole SOD 40 MG TAB PO SCH (08:05)
[2016-11-27] MEDS: ENOXAPARIN 40 MG/0.4 ML SYR SQ SCH (08:06)
[2016-11-27] MEDS: NICOTINE 21 MG/24 HR TDSY TD SCH (08:06)
[2016-11-27] MEDS: BUPRENORPHINE/NALOXONE 2/0.5MG 1 TAB PO SCH (08:48)
[2016-11-27] MEDS ORDERED: VANCOMYCIN TROUGH SCH (11:30)
[2016-11-27 11:46] VITALS: BP 97/60; PULSE 69; TEMP 36.5; O2SAT 97
--- NOTE | 2016-11-27 11:58 | Family Medicine Progress Note ---
Progress Note Date of Service Nov 27, 2016. Subjective Pt evaluation today including: conversation w/ patient, physical exam, chart review, lab review, review of studies Pain: No pain reported this morning Voiding: no voiding problems Constitutional: No chills, No fever Respiratory: No cough, No wheezing Cardiovascular: No chest pain, No palpitations Abdomen: No nausea, No pain, No vomiting Medications Current Inpatient Medications Medications (Trade) Dose Ordered Sig/Varun Route Start Time Stop Time Status Last Admin Dose Admin Vancomycin HCl (Consult) 1 ea UD PRN N/A 11/21/16 21:30 12/21/16 21:29 Quetiapine Fumarate (seroQUEL TAB) 100 mg QAM PO 11/22/16 09:00 12/22/16 08:59 11/27/16 08:04 100 MG Quetiapine Fumarate (seroQUEL TAB) 200 mg HS PO 11/21/16 21:00 12/21/16 20:59 11/26/16 20:54 200 MG Acetaminophen (Tylenol Tab) 650 mg Q4H PRN PO 11/21/16 21:15 12/21/16 21:14 11/26/16 12:58 650 MG Magnesium Hydroxide (Milk Of Magnesia Susp) 30 ml Q6H PRN PO 11/21/16 21:15 12/21/16 21:14 Diphenhydramine HCl (Benadryl Inj) 25 mg Q4H PRN IV 11/21/16 21:15 12/21/16 21:14 11/22/16 19:19 25 MG Al Hydrox/Mg Hydrox/ Simethicone 15 ml 15 ml Q4H PRN PO 11/21/16 21:15 12/21/16 21:14 Promethazine HCl/ Sodium Chloride (Phenergan Inj/ Nss 50ml) 50.5 ml @ 202 mls/hr Q4H PRN IV 11/21/16 21:15 12/21/16 21:14 11/22/16 21:39 202 MLS/HR Zolpidem Tartrate (Ambien Tab) 5 mg HSZ PRN PO 11/21/16 21:15 12/21/16 21:14 11/22/16 21:37 5 MG Ondansetron HCl (Zofran Inj) 4 mg Q6H PRN IV 11/21/16 21:15 12/21/16 21:14 Furosemide (Lasix Tab) 40 mg QAM PO 11/24/16 09:00 12/24/16 08:59 11/27/16 08:05 40 MG Haloperidol Lactate (Haldol Inj) 5 mg Q6 PRN IM 11/23/16 16:45 12/23/16 16:44 11/24/16 20:44 5 MG Pantoprazole Sodium (Protonix Tab) 40 mg QAM PO 11/25/16 09:00 12/25/16 08:59 11/27/16 08:05 40 MG Ioversol (Optiray 320) 125 ml UD PRN IV 11/25/16 10:15 11/29/16 10:14 Buprenorphine/ Naloxone (Suboxone Tab) 4 tab QAM PO 11/26/16 09:00 12/26/16 08:59 11/27/16 08:48 4 TAB Lorazepam (Ativan Inj) 0.5 mg Q4H PRN IV 11/25/16 17:15 12/25/16 17:14 Enoxaparin Sodium (Lovenox Inj) 40 mg QAM SQ 11/26/16 09:00 12/26/16 08:59 11/27/16 08:06 40 MG Nicotine (Nicoderm Cq 21MG Patch) 1 patch QAM TD 11/26/16 09:00 12/26/16 08:59 11/27/16 08:06 1 PATCH Miscellaneous 1 ea 1 ea HS N/A 11/25/16 21:00 12/25/16 20:59 11/26/16 20:54 1 EA Vancomycin HCl/ Sodium Chloride (Vancomycin Inj/ Nss 250ml) 274 ml @ 125 mls/hr Q8H IV 11/26/16 20:00 01/07/17 19:59 11/27/16 04:21 125 MLS/HR Objective Vital Signs Date Time Temp Pulse Resp B/P Pulse Ox O2 Delivery O2 Flow Rate FiO2 11/27/16 11:46 36.5 69 18 97/60 97 Room Air 11/27/16 09:23 Room Air 11/27/16 08:00 36.6 56 14 86/54 95 Room Air 11/27/16 04:30 36.5 66 20 80/48 95 Room Air 11/27/16 04:00 Room Air 11/27/16 00:02 Room Air 11/26/16 22:51 36.7 80 15 89/54 95 Room Air 11/26/16 20:00 Room Air 11/26/16 19:27 36.5 69 14 97/60 97 Room Air 11/26/16 16:00 Room Air 11/26/16 15:22 36.7 56 14 84/47 96 Room Air 11/26/16 12:43 36.5 67 16 80/41 95 Room Air 11/26/16 12:30 Room Air Physical Exam General Appearance: WD/WN, no apparent distress Eyes: normal inspection, sclerae normal Respiratory/Chest: chest non-tender, lungs clear, normal breath sounds Cardiovascular: regular rate, rhythm, no gallop, no murmur Abdomen: normal bowel sounds, non tender, soft Extremities: normal inspection, no calf tenderness Neurologic/Psychiatric: alert, oriented x 3 Laboratory Results Results Past 24 Hours Test 11/26/16 15:36 11/27/16 05:30 11/27/16 11:30 Range/Units Vancomycin Level Trough 27.5 SEE COMMENT mcg/ml Magnesium Level 2.0 1.8-2.4 mg/dl Assessment and Plan Patient is a 26 year old IVDU that presented on 11/22 to the ED with chest pain, fever, and chills 1) Bacterial Endocarditis - Currently awaiting BANDAR early next week to further assess antibiotic requirements and discharge planning - Dr. Peguero has discussed case with patients cardiac surgeon Dr. Harding from [facility] [place] who recommended continued antibiotics, close follow up, and BANDAR next week - Blood Cultures grew MRSA - Plan is to continue with IV antibiotic therapy until scheduled BANDAR next week to reevaluate valvular lesions - After BANDAR ID will make recommendations of continue antibiotic treatment complicated by patients IVDU - BANDAR on 11/23: 2 possible infectious foci on mitral and tricuspid valves, with a 0.5cmx0.2cm mobile echodensity of the atrial aspect of annuloplasty ring of the tricuspid valve - History of Tricuspid Repair at [facility] [place] 11/03 Endocarditis IVDU Aug 2016 - TTE in ED on 11/22: Loculated pericardial effusion improved since 10/28, Thickened tricuspid valve repair with severe tricuspid regurgitation - Urine Tox positive for Urine opiates, Urine methamphetamine/ amphertiamine, and Urine Marijuana - IV Vancomycin as per renal dosing protocol, IV Cefepime 2g IV q8, IV Levofloxacin 750mg q24h - Troponin in ED < 0.015 2) Back Pain - CT L/T Spine Show no acute abnormalities - MRI T-Spine shows no evidence of discitis/osteomyelitis - MRI does show disc bulges the T7-8 and T8-T9 levels 3) Chest Lesion on MRI - Nonspecific 23 mm T1 and T2 bright lesion in the retroxiphoid portion of the chest seen on MRI - Chest CT - New 32mm retrostrenal fluid collection, most likely postsurgical hematoma vs abscess 4) Hypomagnesemia - Corrected - Mg 2.0 today 5) History of CHF 2/2 to Pulmonary Regurgitation and Right Heart Failure - Lasix 40mg PO - Potassium Cl 20 mEq - Stopped IV Fluids to prevent fluid overload 6) History of IVDU - Suboxone 4 tab qAM 7) Psych - Anxiety - Ativan q4h PRN - Depression - Seroquel 100mg qAM, 200mg qHS - Sleep - Ambien 5mg PRN Sleep 8) GI Prophylaxis - Protonix 9) Tobacco Abuse - Nicotine Patch 10) DVT Prophylaxis - Heparin 11) Disposition - Lengthy discussion with patient today because she has been smoking in her room and also complaining about wanting to go off of monitors and leave the unit to go outside. She threatened to leave AMA and we again illustrated the importance of treating her current condition and the seriousness of her infection. Discussed alternatively walking around the unit and the patient seemed slightly perceptive to the idea but still tearful and states "no one can understand what I'm going through". Will continue to follow closely. Psych seen patient yesterday and recommends rehab after discharge but patient appears undecided and questionable whether she would be perceptive to that idea.
[2016-11-27 15:56] VITALS: BP 85/49; PULSE 77; TEMP 36.7; O2SAT 96
--- NOTE | 2016-11-27 15:56 | Cardiology Follow-Up ---
Subjective General Date of Service: Nov 27, 2016. Chief Complaint: follow up fever, bacteremia Pt evaluation today including: conversation w/ patient, physical exam, chart review, lab review, review of studies, review of inpatient medication list History of Present Illness The patient is a 26 year old female seen in follow up. Feeling well today. No recurrent fevers. Offers no complaints. Allergies Coded Allergies: No Known Allergies (Unverified , 11/21/16) Social History Smoking Status: Current Every Day Smoker Hx Tobacco Use In Past Year?: Yes Hx Alcohol Use - Type And Amou: Yes Hx Substance Use - Type And Am: Yes Problem List Medical Problems: (1) Left sided chest pain Status: Acute (2) Pneumonia Status: Acute (3) Precordial chest pain Status: Acute (4) Pulmonary infiltrate Status: Acute (5) Sepsis Status: Acute (6) Withdrawal symptoms, drug or narcotic Status: Acute Review of Systems Respiratory: No cough, No dyspnea at rest, No dyspnea on exertion, No hemoptysis, No shortness of breath, No sputum, No wheezing Cardiac: No PND, No chest pain, No claudication, No edema, No orthopnea, No palpitations Physical Exam Vital Signs Last Vital Signs Documentation Date Time Temp Pulse Resp B/P Pulse Ox O2 Delivery O2 Flow Rate FiO2 11/27/16 15:13 Room Air 11/27/16 11:46 36.5 69 18 97/60 97 11/23/16 16:00 3.0 Physical Exam Constitutional: Level of Distress: NAD Head: normocephalic Neck: supple, trachea midline Lungs: Auscultation: no wheezing, no rales/crackles Cardiovascular: Heart Auscultation: RRR, normal S1, normal S2, I/ WSM Peripheral Pulses: Radial Pulse: normal on the left Abdomen: Bowel Sounds: diminished Inspection & Palpation: non-distended Extremities: no edema, no varicosities Neurologic: Gait & Station: pertinent finding (no focal deficits) Cranial Nerves: grossly intact Assessment and Plan Assessment and Plan Impression: 26-year-old female 1. MRSA bacteremia with BANDAR 11/23/16 suggesting sublte vegetation on the tricuspid valve annuloplasty ring, as well as a subtle echodensity on the posterior mitral valve leaflet. 2. CT chest 11/25/16 with a 3.2 cm fluid collection adjacent to the right side of sternum and pericardium. 3. Back pain resolved, no epidural abscess on MRI 4. Severe residual tricuspid valve regurgitation, moderate pulmonary hypertension, PA systolic pressure likely 55-60 mmHg based on transthoracic/ transesophageal echocardiogram. Plan: Plan repeat BANDAR early this week. Patient agreeable. Continue antibiotics per ID recommendations. Laboratory Results Last 24 Hours Test 11/27/16 05:30 11/27/16 11:50 Magnesium Level 2.0 mg/dl Vancomycin Level Trough 21.0 mcg/ml
[2016-11-27 19:09] VITALS: BP 115/73; PULSE 83; TEMP 36.4; O2SAT 98
[2016-11-27] MEDS: QUETIAPINE FUMARATE 200 MG TAB PO SCH (20:41)
[2016-11-27] MEDS: VANCOMYCIN INJ 1,050 MG in SODIUM CHLORIDE 0.9% 250ML 250 ML IV SCH (22:29)
[2016-11-27 23:19] VITALS: BP 106/70; PULSE 83; TEMP 36.9; O2SAT 99
[2016-11-28] VITALS (7 sets, daily range): BP systolic 83–114; BP diastolic 48–76; PULSE 66–98; TEMP 36.4–36.7; O2SAT 95–98
[2016-11-28] MEDS: VANCOMYCIN INJ 1,050 MG in SODIUM CHLORIDE 0.9% 250ML 250 ML IV SCH ×3 (06:01→22:02)
[2016-11-28 07:39] LABS: HEMATOCRIT 43.1 % (37-47); MEAN CELL VOLUME 87.2 fL (80-100); MEAN CORPUSCULAR HEMOGLOBIN 29.4 pg (25-34); MEAN CORPUSCULAR HGB CONC 33.6 g/dl (32-36); MEAN PLATELET VOLUME 11.4 fL (7.4-10.4); PLATELET COUNT 200 K/uL (130-400); RED BLOOD COUNT 4.94 M/uL (4.2-5.4); WHITE BLOOD COUNT 6.92 K/uL (4.8-10.8)
[2016-11-28] MEDS: FUROSEMIDE 40 MG TAB PO SCH (08:32)
[2016-11-28] MEDS: PANTOprazole SOD 40 MG TAB PO SCH (08:32)
[2016-11-28] MEDS: QUETIAPINE FUMARATE 100 MG TAB PO SCH (08:33)
[2016-11-28] MEDS: NICOTINE 21 MG/24 HR TDSY TD SCH (08:33)
[2016-11-28] MEDS: ENOXAPARIN 40 MG/0.4 ML SYR SQ SCH (08:34)
[2016-11-28] MEDS: BUPRENORPHINE/NALOXONE 2/0.5MG 1 TAB PO SCH (09:07)
--- NOTE | 2016-11-28 10:28 | Psychiatric Progress Notes ---
Psychiatric Progress Note Date of Service Nov 28, 2016. Notes ID: Patient reviewed with liaison nurse. Initial consult by NICKOLAS Silvestre continued Seroquel. ROIs obtained to update outpatient providers and confirm appointments. Remains on contact precautions. CC: "I still want to get out of here as soon as possible" HPI: there have been a few management issues on the floor as needed encouraged to stay for repeat BANDAR after being caught smoking on the medical floor. ROS: denied CP/SOB, GI issues MSE: alert, cooperative, constricted affect, thoughts organized, no SI/HI/toure. Imp: unspecified mood disorder with polysubstance dependence Plan: ROIs for outpatient providers as maintaining Seroquel and Suboxone here substance abuse is primary concern and would still recommend rehab programming, patient no further along with commitment to treatment than on Sat since apparently had access to cigarette's, would advise continued monitoring of personal items and visitors to ensure no drug use, repeating drug screen if needed to confirm
--- NOTE | 2016-11-28 14:59 | Progress Note ---
Subjective Date of Service: Nov 28, 2016. Subjective repeat blood cultures negative, all initial cultures with MRSA, remains on vanco , level 21 on 11/27. tolerating well. ct chest findings noted, mri spine negative for epidural disease. for payton this week. Problem List Medical Problems: (1) Left sided chest pain Status: Acute (2) Pneumonia Status: Acute (3) Precordial chest pain Status: Acute (4) Pulmonary infiltrate Status: Acute (5) Sepsis Status: Acute (6) Withdrawal symptoms, drug or narcotic Status: Acute Objective Vital Signs Date Time Temp Pulse Resp B/P Pulse Ox O2 Delivery O2 Flow Rate FiO2 11/28/16 11:33 Room Air 11/28/16 11:18 36.7 90 20 101/67 95 Room Air 11/28/16 08:00 Room Air 11/28/16 08:00 Room Air 11/28/16 07:59 36.5 66 20 87/51 97 Room Air 11/28/16 04:00 Room Air 11/28/16 03:41 36.4 70 14 92/53 96 Room Air 11/28/16 00:02 Room Air 11/27/16 23:19 36.9 83 15 106/70 99 Room Air 11/27/16 20:00 Room Air 11/27/16 19:09 36.4 83 16 115/73 98 Room Air 11/27/16 15:56 36.7 77 14 85/49 96 Room Air 11/27/16 15:13 Room Air Laboratory Results Item Value Date Time Blood Culture - Final Complete 11/22/16 1950 Blood NO GROWTH Blood Culture - Final Complete 11/22/16 1945 Blood NO GROWTH Blood Culture - Final Complete 11/21/16 1851 Blood Staphylococcus Aureus Blood Culture - Final Complete 11/21/16 1834 Blood Staphylococcus Aureus Blood Culture - Final Complete 11/21/16 1841 Blood Staphylococcus Aureus Last 24 Hours Test 11/28/16 07:08 White Blood Count 6.92 K/uL Red Blood Count 4.94 M/uL Hemoglobin 14.5 g/dL Hematocrit 43.1 % Mean Corpuscular Volume 87.2 fL Mean Corpuscular Hemoglobin 29.4 pg Mean Corpuscular Hemoglobin Concent 33.6 g/dl RDW Standard Deviation 50.9 fL RDW Coefficient of Variation 16.0 % Platelet Count 200 K/uL Mean Platelet Volume 11.4 fL Assessment and Plan (1) Infectious endocarditis Assessment & Plan: repeat cultures negative, continue vanco, await repeat payton (2) Staphylococcus aureus septicemia Continued [facility] stay due to: multiple IV medications needed Discharge planning: uncertain Problem Qualifiers (1) Infectious endocarditis: Infective endocarditis organism: bacterial Chronicity: unspecified Qualified Codes: I33.0 - Acute and subacute infective endocarditis
--- NOTE | 2016-11-28 17:01 | Progress Note ---
Progress Note Date of Service Nov 28, 2016. Progress Note Resident Physician Supervision Note: I was present with Dr. Colin during the history and exam. I discussed the case with the resident and agree with the findings and plan as documented in their separate note. Any exceptions or clarifications are listed here: 26-year-old female with subacute bacterial endocarditis secondary to prior history and continued intravenous drug use. She had 3 positive blood cultures growing MRSA, however repeat cultures done November 23 are negative. Due to her use of illicit drugs, she is not a candidate for a PICC line and home antibiotics. Subacute bacterial endocarditis: Continue current antibiotics. Tentative plan is for repeat transesophageal echocardiogram on November 30, 2016 to rule out development of an abscess or other indication for surgical intervention. Clinically she seems to be improving and hopefully nothing will be found that' ll indicate anything other than continued medical therapy. We'll work with case management to identify detention possibilities Pulmonary nodules: likely septic emboli, on antibiotics, no respiratory distress Severe pulmonary regurgitation and h/o RV failure: continue Lasix 40mg PO daily ; monitor serum potassium Back pain: intermittent, she may know complain of this today. MRI thoracic spine - no epidural abscess, no discitis Mood disorder: Appreciate psychiatry recommendations Drug abuse: was taking Suboxone outpatient, 8/2mg, resumed on 11/26; important to note no narcotics now that on Suboxone. Tobacco abuse: nicotine patch 21mg daily
--- NOTE | 2016-11-28 17:20 | Cardiology Follow-Up ---
Subjective General Date of Service: Nov 28, 2016. Chief Complaint: follow up fever, bacteremia Pt evaluation today including: conversation w/ patient, physical exam, chart review, lab review, review of studies, conversation w/ sales support consultant, review of inpatient medication list History of Present Illness The patient is a 26 year old female seen in follow up. Reports episode of palpitations described as 'heart racing'. Correlated with sinus tachycardia on telemetry. No recurrent fevers. Offers no other complaints. Allergies Coded Allergies: No Known Allergies (Unverified , 11/21/16) Social History Smoking Status: Current Every Day Smoker Hx Tobacco Use In Past Year?: Yes Hx Alcohol Use - Type And Amou: Yes Hx Substance Use - Type And Am: Yes Problem List Medical Problems: (1) Left sided chest pain Status: Acute (2) Pneumonia Status: Acute (3) Precordial chest pain Status: Acute (4) Pulmonary infiltrate Status: Acute (5) Sepsis Status: Acute (6) Withdrawal symptoms, drug or narcotic Status: Acute Review of Systems Respiratory: No cough, No dyspnea at rest, No dyspnea on exertion, No hemoptysis, No shortness of breath, No wheezing Cardiac: + palpitations, No PND, No chest pain, No edema Physical Exam Vital Signs Last Vital Signs Documentation Date Time Temp Pulse Resp B/P Pulse Ox O2 Delivery O2 Flow Rate FiO2 11/28/16 16:02 Room Air 11/28/16 11:18 36.7 90 20 101/67 95 11/23/16 16:00 3.0 Physical Exam Constitutional: Level of Distress: NAD Head: normocephalic Neck: supple, trachea midline Lungs: Auscultation: no wheezing, no rales/crackles Cardiovascular: Heart Auscultation: RRR, normal S1, normal S2, I/ WSM Peripheral Pulses: Radial Pulse: normal on the left Abdomen: Bowel Sounds: diminished Inspection & Palpation: non-distended Extremities: no edema, no varicosities Neurologic: Gait & Station: pertinent finding (no focal deficits) Cranial Nerves: grossly intact Assessment and Plan Assessment and Plan Impression: 26-year-old female 1. MRSA bacteremia with BANDAR 11/23/16 suggesting sublte vegetation on the tricuspid valve annuloplasty ring, as well as a subtle echodensity on the posterior mitral valve leaflet. 2. CT chest 11/25/16 with a 3.2 cm fluid collection adjacent to the right side of sternum and pericardium. 3. Back pain resolved, no epidural abscess on MRI 4. Severe residual tricuspid valve regurgitation, moderate pulmonary hypertension, PA systolic pressure likely 55-60 mmHg based on transthoracic/ transesophageal echocardiogram. 5. Palpitations secondary to sinus tachycardia Plan: Plan repeat BANDAR Monday. Patient agreeable. Continue antibiotics per ID recommendations. Laboratory Results Last 24 Hours Test 11/28/16 07:08 White Blood Count 6.92 K/uL Red Blood Count 4.94 M/uL Hemoglobin 14.5 g/dL Hematocrit 43.1 % Mean Corpuscular Volume 87.2 fL Mean Corpuscular Hemoglobin 29.4 pg Mean Corpuscular Hemoglobin Concent 33.6 g/dl RDW Standard Deviation 50.9 fL RDW Coefficient of Variation 16.0 % Platelet Count 200 K/uL Mean Platelet Volume 11.4 fL
--- NOTE | 2016-11-28 17:44 | Family Medicine Progress Note ---
Progress Note Date of Service Nov 28, 2016. Subjective Pt evaluation today including: conversation w/ patient, physical exam, lab review Pain: denies Voiding: no voiding problems No acute event overnight. On tele she was normal sinus rhythm with heart rate mostly in 70s. She denies any complaints today. Tolerating food well. Constitutional: No chills, No fever Respiratory: No cough, No dyspnea on exertion, No shortness of breath, No sputum, No wheezing Cardiovascular: No chest pain, No edema Abdomen: No constipation, No diarrhea, No nausea, No pain, No vomiting Musculoskeletal: No muscle pain Female : No dysuria Skin: No rash Medications Current Inpatient Medications Medications (Trade) Dose Ordered Sig/Varun Route Start Time Stop Time Status Last Admin Dose Admin Vancomycin HCl (Consult) 1 ea UD PRN N/A 11/21/16 21:30 12/21/16 21:29 Quetiapine Fumarate (seroQUEL TAB) 100 mg QAM PO 11/22/16 09:00 12/22/16 08:59 11/28/16 08:33 100 MG Quetiapine Fumarate (seroQUEL TAB) 200 mg HS PO 11/21/16 21:00 12/21/16 20:59 11/27/16 20:41 200 MG Acetaminophen (Tylenol Tab) 650 mg Q4H PRN PO 11/21/16 21:15 12/21/16 21:14 11/26/16 12:58 650 MG Magnesium Hydroxide (Milk Of Magnesia Susp) 30 ml Q6H PRN PO 11/21/16 21:15 12/21/16 21:14 Diphenhydramine HCl (Benadryl Inj) 25 mg Q4H PRN IV 11/21/16 21:15 12/21/16 21:14 11/22/16 19:19 25 MG Al Hydrox/Mg Hydrox/ Simethicone 15 ml 15 ml Q4H PRN PO 11/21/16 21:15 12/21/16 21:14 Promethazine HCl/ Sodium Chloride (Phenergan Inj/ Nss 50ml) 50.5 ml @ 202 mls/hr Q4H PRN IV 11/21/16 21:15 12/21/16 21:14 11/22/16 21:39 202 MLS/HR Zolpidem Tartrate (Ambien Tab) 5 mg HSZ PRN PO 11/21/16 21:15 12/21/16 21:14 11/22/16 21:37 5 MG Ondansetron HCl (Zofran Inj) 4 mg Q6H PRN IV 11/21/16 21:15 12/21/16 21:14 Furosemide (Lasix Tab) 40 mg QAM PO 11/24/16 09:00 12/24/16 08:59 11/28/16 08:32 40 MG Haloperidol Lactate (Haldol Inj) 5 mg Q6 PRN IM 11/23/16 16:45 12/23/16 16:44 11/24/16 20:44 5 MG Pantoprazole Sodium (Protonix Tab) 40 mg QAM PO 11/25/16 09:00 12/25/16 08:59 11/28/16 08:32 40 MG Ioversol (Optiray 320) 125 ml UD PRN IV 11/25/16 10:15 11/29/16 10:14 Buprenorphine/ Naloxone (Suboxone Tab) 4 tab QAM PO 11/26/16 09:00 12/26/16 08:59 11/28/16 09:07 4 TAB Enoxaparin Sodium (Lovenox Inj) 40 mg QAM SQ 11/26/16 09:00 12/26/16 08:59 11/28/16 08:34 40 MG Nicotine (Nicoderm Cq 21MG Patch) 1 patch QAM TD 11/26/16 09:00 12/26/16 08:59 11/28/16 08:33 1 PATCH Miscellaneous 1 ea 1 ea HS N/A 11/25/16 21:00 12/25/16 20:59 11/27/16 20:41 1 EA Vancomycin HCl/ Sodium Chloride (Vancomycin Inj/ Nss 250ml) 271 ml @ 125 mls/hr Q8H IV 11/27/16 22:00 01/07/17 21:59 11/28/16 14:54 125 MLS/HR Objective Vital Signs Date Time Temp Pulse Resp B/P Pulse Ox O2 Delivery O2 Flow Rate FiO2 11/28/16 17:27 36.5 91 20 94/59 97 Nasal Cannula 11/28/16 16:02 Room Air 11/28/16 11:33 Room Air 11/28/16 11:18 36.7 90 20 101/67 95 Room Air 11/28/16 08:00 Room Air 11/28/16 08:00 Room Air 11/28/16 07:59 36.5 66 20 87/51 97 Room Air 11/28/16 04:00 Room Air 11/28/16 03:41 36.4 70 14 92/53 96 Room Air 11/28/16 00:02 Room Air 11/27/16 23:19 36.9 83 15 106/70 99 Room Air 11/27/16 20:00 Room Air 11/27/16 19:09 36.4 83 16 115/73 98 Room Air Physical Exam General Appearance: WD/WN, no apparent distress Neck: supple, trachea midline Respiratory/Chest: chest non-tender, lungs clear, normal breath sounds, no respiratory distress, no accessory muscle use Cardiovascular: regular rate, rhythm, no edema, no murmur Abdomen: normal bowel sounds, non tender, soft Extremities: normal range of motion, non-tender, no pedal edema, no calf tenderness Neurologic/Psychiatric: alert, normal mood/affect, oriented x 3 Skin: normal color, warm/dry Laboratory Results Results Past 24 Hours Test 11/28/16 07:08 Range/Units White Blood Count 6.92 4.8-10.8 K/uL Red Blood Count 4.94 4.2-5.4 M/uL Hemoglobin 14.5 12.0-16.0 g/dL Hematocrit 43.1 37-47 % Mean Corpuscular Volume 87.2 80-100 fL Mean Corpuscular Hemoglobin 29.4 25-34 pg Mean Corpuscular Hemoglobin Concent 33.6 32-36 g/dl RDW Standard Deviation 50.9 36.4-46.3 fL RDW Coefficient of Variation 16.0 11.5-14.5 % Platelet Count 200 130-400 K/uL Mean Platelet Volume 11.4 7.4-10.4 fL Assessment and Plan Patient is a 26 year old IVDU that presented on 11/22 to the ED with chest pain, fever, and chills 1. Subacute Bacterial Endocarditis - Dr. Peguero has discussed case with patients cardiac surgeon Dr. Harding from [facility] [place] who recommended continued antibiotics, close follow up, and BANDAR next week - 3 Blood Cultures grew MRSA - Repeat culture done 11/23, no growth to date - TTE in ED on 11/22: Loculated pericardial effusion improved since 10/28, Thickened tricuspid valve repair with severe tricuspid regurgitation - BANDAR on 11/23: 2 possible infectious foci on mitral and tricuspid valves, with a 0.5cmx0.2cm mobile echodensity of the atrial aspect of annuloplasty ring of the tricuspid valve - Continue IV Vancomycin, d/c IV cefepime 2gIV and Levofloxacin 750mg on 11/23 - History of Tricuspid Repair at [facility] [place] 2/2 Endocarditis IVDU Aug 2016 - Urine Tox positive for Urine opiates, Urine methamphetamine/ amphertiamine , and Urine Marijuana - Currently awaiting BANDAR, which will be done on 11/30 to further assess antibiotic requirements and discharge planning - ID on board and after BANDAR ID will make recommendations for further management with the antibiotics 2. Back Pain - Patient denies any back pain today - CT L/T Spine Show no acute abnormalities - MRI T-Spine shows no evidence of discitis/osteomyelitis - MRI does show disc bulges the T7-8 and T8-T9 levels - D/c IV Dilaudid 11/27 3. Pulmonary Nodules - Patient is currently asymptomatic and denies any SOB - Likely 2/2 septic emboli - Continue IV Vancomycin - Thoracic spine MRI (11/24): Nonspecific 23 mm T1 and T2 bright lesion in the retroxiphoid portion of the chest. - Chest CT (11/25): 1) Interval midline sternotomy. New 32 mm retrosternal fluid collection abutting the pericardium. Postsurgical organizing hematoma vs abscess. 2) Possible chronic pulmonary emboli. 3) Small bilateral pleural effusions. 4) Scattered ill-defined bilateral pulmonary nodular opacities. An infectious/inflammatory etiology is favored 4. Hypomagnesemia - Corrected - Mg 2.0 yesterday 5. History of CHF 2/2 to Pulmonary Regurgitation and Right Heart Failure - Continue Lasix 40mg PO - Potassium Cl 20 mEq - D/c IV Fluids (11/27) to prevent fluid overload 6. History of IVDU - Suboxone 4 tab qAM 7. Psych - Anxiety - Ativan q4h PRN - Depression - Seroquel 100mg qAM, 200mg qHS - Sleep - Ambien 5mg PRN Sleep - Psych is on board and continue to appreciate their recommendation 8. GI Prophylaxis - Protonix 40mg qam 9. Tobacco Abuse - Nicotine Patch 10. DVT Prophylaxis - Heparin 11. Disposition - Patient is not a candidate for PICC given her hx of IV drug abuse. She will need to be on IV antibiotics for minimum 6 weeks. She needs to be at SNF or similar facility to complete her antibiotics course. At this moment awaiting for repeat BANDAR on 11/30 to make sure vegetations are not worsening. Resident Physician Supervision Note: I was present with Dr. Colin during the history and exam. I discussed the case with the resident and agree with the findings and plan as documented in the note. Any exceptions or clarifications are listed here: Please see my separate note completed today for additional. Documented By: Jared Ortega
[2016-11-28] MEDS ORDERED: LORAZEPAM 0.5 MG TAB ONE (18:09)
[2016-11-28] MEDS ORDERED: LORAZEPAM 0.5 MG TAB PO PRN (18:15)
[2016-11-28] MEDS: HALOPERIDOL LACTATE 5 MG/ML 1 ML VIAL IM PRN (18:46)
[2016-11-28] MEDS ORDERED: NICOTINE POLACRILEX 2 MG GUM MT PRN (19:00)
[2016-11-28] MEDS ORDERED: NURSING VERBAL MED ORDER ONE (19:00)
[2016-11-28] MEDS: NICOTINE POLACRILEX 2 MG GUM MT PRN (19:44)
[2016-11-28] MEDS: QUETIAPINE FUMARATE 200 MG TAB PO SCH (20:34)
[2016-11-28] MEDS ORDERED: VANCOMYCIN TROUGH ONE (21:30)
[2016-11-29] VITALS (7 sets, daily range): BP systolic 87–121; BP diastolic 48–77; PULSE 63–109; TEMP 36.5–36.8; O2SAT 96–98
[2016-11-29] MEDS: VANCOMYCIN INJ 1,050 MG in SODIUM CHLORIDE 0.9% 250ML 250 ML IV SCH ×3 (05:43→22:10)
[2016-11-29 08:15] LABS: BLOOD UREA NITROGEN 20 mg/dl (7-18); BUN/CREATININE RATIO 38.6 (10-20); CARBON DIOXIDE 24 mmol/L (21-32); CHLORIDE 101 mmol/L (98-107); CREATININE 0.51 mg/dl (0.60-1.20); GLUCOSE 103 mg/dl (70-99); MAGNESIUM 1.8 mg/dl (1.8-2.4); POTASSIUM 4.2 mmol/L (3.5-5.1); SODIUM 136 mmol/L (136-145)
[2016-11-29] MEDS: NICOTINE 21 MG/24 HR TDSY TD SCH (08:21)
[2016-11-29] MEDS: FUROSEMIDE 40 MG TAB PO SCH (08:21)
[2016-11-29] MEDS: QUETIAPINE FUMARATE 100 MG TAB PO SCH (08:21)
[2016-11-29] MEDS: PANTOprazole SOD 40 MG TAB PO SCH (08:22)
[2016-11-29] MEDS: ENOXAPARIN 40 MG/0.4 ML SYR SQ SCH (08:45)
[2016-11-29] MEDS: BUPRENORPHINE/NALOXONE 2/0.5MG 1 TAB PO SCH (08:45)
[2016-11-29] MEDS: NICOTINE POLACRILEX 2 MG GUM MT PRN ×2 (13:21→20:31)
[2016-11-29] MEDS: HALOPERIDOL LACTATE 5 MG/ML 1 ML VIAL IM PRN (13:22)
--- NOTE | 2016-11-29 14:21 | Progress Note ---
Subjective Date of Service: Nov 29, 2016. Subjective pt remains on vanco, repeat cultures from 11/22 negative and final. afebrile. wbc nml. for payton tomorrow. dispo to be be determined by results. concern from case management that pt may be actively using during this hospital stay, concerned regarding d/c planning and access. tolerating abx. 11/28 vanco trough 27, acceptable. Problem List Medical Problems: (1) Left sided chest pain Status: Acute (2) Pneumonia Status: Acute (3) Precordial chest pain Status: Acute (4) Pulmonary infiltrate Status: Acute (5) Sepsis Status: Acute (6) Withdrawal symptoms, drug or narcotic Status: Acute Objective Vital Signs Date Time Temp Pulse Resp B/P Pulse Ox O2 Delivery O2 Flow Rate FiO2 11/29/16 14:03 Room Air 11/29/16 12:00 Room Air 11/29/16 11:31 36.8 109 18 121/63 96 11/29/16 08:00 Room Air 11/29/16 08:00 36.8 66 20 95/54 98 11/29/16 04:00 Room Air 11/29/16 03:23 36.5 66 16 93/56 97 Room Air 11/29/16 00:01 97 Room Air 11/28/16 23:33 36.6 80 16 83/48 97 Room Air 11/28/16 20:00 98 Room Air 11/28/16 19:43 36.7 98 17 114/76 98 Room Air 11/28/16 17:27 36.5 91 20 94/59 97 Nasal Cannula 11/28/16 16:02 Room Air Laboratory Results Last 24 Hours Test 11/28/16 21:20 11/29/16 07:32 Vancomycin Level Trough 17.0 mcg/ml Sodium Level 136 mmol/L Potassium Level 4.2 mmol/L Chloride Level 101 mmol/L Carbon Dioxide Level 24 mmol/L Anion Gap 11.0 mmol/L Blood Urea Nitrogen 20 mg/dl Creatinine 0.51 mg/dl Est Creatinine Clear Calc Drug Dose 164.0 ml/min Estimated GFR () > 150.0 Estimated GFR (Non- 133.6 BUN/Creatinine Ratio 38.6 Random Glucose 103 mg/dl Calcium Level 9.0 mg/dl Magnesium Level 1.8 mg/dl Assessment and Plan (1) Infectious endocarditis Assessment & Plan: Agree she is not a candidate for picc line with h/o of IVDA up to the time of admission, some suspicion for active use by case management. consider 1:1 if concern continues. Dispo will depend on findings of repeat PAYTON tomorrow. would suggest continue vanco for now and follow results of PAYTON. repeat blood cultures negative and final. If she is to be d/c to rehab, certainly Iv dalvance would be an option as this would avoid need for picc and address concern of durg use thru picc, she is not a candidate for picc line. will await dispo plans and adjust abx as needed. (2) Staphylococcus aureus septicemia Continued [facility] stay due to: multiple IV medications needed Discharge planning: uncertain Problem Qualifiers (1) Infectious endocarditis: Infective endocarditis organism: bacterial Chronicity: unspecified Qualified Codes: I33.0 - Acute and subacute infective endocarditis
--- NOTE | 2016-11-29 15:05 | Anesthesiology Progress Note ---
Anesthesia Progress Note Date of Service Nov 29, 2016. Progress Notes Patient with suspected endocarditis, prior BANDAR about a week ago, anesthesia record available, preanesthesia form in holding, patient to be NPO.
--- NOTE | 2016-11-29 15:37 | Cardiology Follow-Up ---
Subjective General Date of Service: Nov 29, 2016. Chief Complaint: follow up fever, bacteremia Pt evaluation today including: conversation w/ patient, physical exam, chart review, lab review, review of studies, review of inpatient medication list History of Present Illness The patient is a 26 year old female seen in follow-up. Denies chest discomfort or shortness of breath. No palpitations, lightheadedness, dizziness. Denies fever or chills. Tolerating diet medications. Offers no complaints this time. Allergies Coded Allergies: No Known Allergies (Unverified , 11/21/16) Social History Smoking Status: Current Every Day Smoker Hx Tobacco Use In Past Year?: Yes Hx Alcohol Use - Type And Amou: Yes Hx Substance Use - Type And Am: Yes Problem List Medical Problems: (1) Left sided chest pain Status: Acute (2) Pneumonia Status: Acute (3) Precordial chest pain Status: Acute (4) Pulmonary infiltrate Status: Acute (5) Sepsis Status: Acute (6) Withdrawal symptoms, drug or narcotic Status: Acute Review of Systems Respiratory: No cough, No dyspnea at rest, No dyspnea on exertion, No hemoptysis, No shortness of breath, No sputum, No wheezing Cardiac: No PND, No chest pain, No claudication, No edema, No orthopnea, No palpitations Physical Exam Vital Signs Last Vital Signs Documentation Date Time Temp Pulse Resp B/P Pulse Ox O2 Delivery O2 Flow Rate FiO2 11/29/16 14:03 Room Air 11/29/16 11:31 36.8 109 18 121/63 96 11/23/16 16:00 3.0 Physical Exam Constitutional: Level of Distress: NAD Head: normocephalic Neck: supple, trachea midline Lungs: Auscultation: no wheezing, no rales/crackles Cardiovascular: Heart Auscultation: RRR, normal S1, normal S2, I/ WSM Peripheral Pulses: Radial Pulse: normal on the left Abdomen: Bowel Sounds: diminished Inspection & Palpation: non-distended Extremities: no edema, no varicosities Neurologic: Gait & Station: pertinent finding (no focal deficits) Cranial Nerves: grossly intact Assessment and Plan Assessment and Plan Impression: 26-year-old female 1. MRSA bacteremia with BANDAR 11/23/16 suggesting subtle vegetation on the tricuspid valve annuloplasty ring, as well as a subtle echodensity on the posterior mitral valve leaflet. 2. CT chest 11/25/16 with a 3.2 cm fluid collection adjacent to the right side of sternum and pericardium. 3. Back pain resolved, no epidural abscess on MRI 4. Severe residual tricuspid valve regurgitation, moderate pulmonary hypertension, PA systolic pressure likely 55-60 mmHg based on transthoracic/ transesophageal echocardiogram. 5. Palpitations secondary to sinus tachycardia -Resolved Plan: Plan repeat BANDAR in AM. Risks, benefits, and alternatives to procedure discussed. Patient is agreeable. Anesthesia consulted for conscious sedation. Continue antibiotics per ID recommendations. Laboratory Results Last 24 Hours Test 11/28/16 21:20 11/29/16 07:32 Vancomycin Level Trough 17.0 mcg/ml Sodium Level 136 mmol/L Potassium Level 4.2 mmol/L Chloride Level 101 mmol/L Carbon Dioxide Level 24 mmol/L Anion Gap 11.0 mmol/L Blood Urea Nitrogen 20 mg/dl Creatinine 0.51 mg/dl Est Creatinine Clear Calc Drug Dose 164.0 ml/min Estimated GFR () > 150.0 Estimated GFR (Non- 133.6 BUN/Creatinine Ratio 38.6 Random Glucose 103 mg/dl Calcium Level 9.0 mg/dl Magnesium Level 1.8 mg/dl
--- NOTE | 2016-11-29 16:39 | Family Medicine Progress Note ---
Progress Note Date of Service Nov 29, 2016. Subjective Pt evaluation today including: conversation w/ patient, physical exam, lab review Pain: Denies Voiding: no voiding problems Patient was seen at the bedside. Denies any problems. Tolerating food well. Planned to have BANDAR done tomorrow. Patient was caught smoking in the room last night by the nurse. She was also agitated and was given 0.5mg of Ativan. Constitutional: No chills, No fever Respiratory: No cough, No dyspnea on exertion, No shortness of breath, No sputum, No wheezing Cardiovascular: No chest pain, No edema Abdomen: No constipation, No diarrhea, No nausea, No pain, No vomiting Musculoskeletal: No muscle pain Female : No dysuria Skin: No rash Medications Current Inpatient Medications Medications (Trade) Dose Ordered Sig/Varun Route Start Time Stop Time Status Last Admin Dose Admin Vancomycin HCl (Consult) 1 ea UD PRN N/A 11/21/16 21:30 12/21/16 21:29 Quetiapine Fumarate (seroQUEL TAB) 100 mg QAM PO 11/22/16 09:00 12/22/16 08:59 11/29/16 08:21 100 MG Quetiapine Fumarate (seroQUEL TAB) 200 mg HS PO 11/21/16 21:00 12/21/16 20:59 11/28/16 20:34 200 MG Acetaminophen (Tylenol Tab) 650 mg Q4H PRN PO 11/21/16 21:15 12/21/16 21:14 11/26/16 12:58 650 MG Magnesium Hydroxide (Milk Of Magnesia Susp) 30 ml Q6H PRN PO 11/21/16 21:15 12/21/16 21:14 Diphenhydramine HCl (Benadryl Inj) 25 mg Q4H PRN IV 11/21/16 21:15 12/21/16 21:14 11/22/16 19:19 25 MG Al Hydrox/Mg Hydrox/ Simethicone 15 ml 15 ml Q4H PRN PO 11/21/16 21:15 12/21/16 21:14 Promethazine HCl/ Sodium Chloride (Phenergan Inj/ Nss 50ml) 50.5 ml @ 202 mls/hr Q4H PRN IV 11/21/16 21:15 12/21/16 21:14 11/22/16 21:39 202 MLS/HR Zolpidem Tartrate (Ambien Tab) 5 mg HSZ PRN PO 11/21/16 21:15 12/21/16 21:14 11/22/16 21:37 5 MG Ondansetron HCl (Zofran Inj) 4 mg Q6H PRN IV 11/21/16 21:15 12/21/16 21:14 Furosemide (Lasix Tab) 40 mg QAM PO 11/24/16 09:00 12/24/16 08:59 11/29/16 08:21 40 MG Haloperidol Lactate (Haldol Inj) 5 mg Q6 PRN IM 11/23/16 16:45 12/23/16 16:44 11/29/16 13:22 5 MG Pantoprazole Sodium (Protonix Tab) 40 mg QAM PO 11/25/16 09:00 12/25/16 08:59 11/29/16 08:22 40 MG Buprenorphine/ Naloxone (Suboxone Tab) 4 tab QAM PO 11/26/16 09:00 12/26/16 08:59 11/29/16 08:45 4 TAB Enoxaparin Sodium (Lovenox Inj) 40 mg QAM SQ 11/26/16 09:00 12/26/16 08:59 11/29/16 08:45 40 MG Nicotine (Nicoderm Cq 21MG Patch) 1 patch QAM TD 11/26/16 09:00 12/26/16 08:59 11/29/16 08:21 1 PATCH Miscellaneous 1 ea 1 ea HS N/A 11/25/16 21:00 12/25/16 20:59 11/28/16 20:34 1 EA Vancomycin HCl/ Sodium Chloride (Vancomycin Inj/ Nss 250ml) 271 ml @ 125 mls/hr Q8H IV 11/27/16 22:00 01/07/17 21:59 11/29/16 14:26 125 MLS/HR Nicotine Polacrilex (Nicorette 2MG Gum) 1-2 PIECES Q2H PRN MT 11/28/16 19:15 12/28/16 18:59 11/29/16 13:21 2 PIECE Objective Vital Signs Date Time Temp Pulse Resp B/P Pulse Ox O2 Delivery O2 Flow Rate FiO2 11/29/16 15:33 36.5 75 16 87/48 97 2/28/17 14:03 Room Air 11/29/16 12:00 Room Air 11/29/16 11:31 36.8 109 18 121/63 96 11/29/16 08:00 Room Air 11/29/16 08:00 36.8 66 20 95/54 98 11/29/16 04:00 Room Air 11/29/16 03:23 36.5 66 16 93/56 97 Room Air 11/29/16 00:01 97 Room Air 11/28/16 23:33 36.6 80 16 83/48 97 Room Air 11/28/16 20:00 98 Room Air 11/28/16 19:43 36.7 98 17 114/76 98 Room Air 11/28/16 17:27 36.5 91 20 94/59 97 Nasal Cannula Physical Exam General Appearance: WD/WN, no apparent distress Neck: supple, trachea midline Respiratory/Chest: chest non-tender, lungs clear, normal breath sounds, no respiratory distress, no accessory muscle use Cardiovascular: regular rate, rhythm, no edema, no murmur Abdomen: normal bowel sounds, non tender, soft Extremities: non-tender, no pedal edema, no calf tenderness Neurologic/Psychiatric: alert, normal mood/affect, oriented x 3 Skin: normal color, warm/dry Laboratory Results Results Past 24 Hours Test 11/28/16 21:20 11/29/16 07:32 Range/Units Vancomycin Level Trough 17.0 SEE COMMENT mcg/ml Sodium Level 136 136-145 mmol/L Potassium Level 4.2 3.5-5.1 mmol/L Chloride Level 101 98-107 mmol/L Carbon Dioxide Level 24 21-32 mmol/L Anion Gap 11.0 3-11 mmol/L Blood Urea Nitrogen 20 7-18 mg/dl Creatinine 0.51 0.60-1.20 mg/dl Est Creatinine Clear Calc Drug Dose 164.0 ml/min Estimated GFR () > 150.0 Estimated GFR (Non- 133.6 BUN/Creatinine Ratio 38.6 10-20 Random Glucose 103 70-99 mg/dl Calcium Level 9.0 8.5-10.1 mg/dl Magnesium Level 1.8 1.8-2.4 mg/dl Assessment and Plan Patient is a 26 year old IVDU that presented on 11/22 to the ED with chest pain, fever, and chills. 1. Subacute Bacterial Endocarditis - Dr. Peguero has discussed case with patients cardiac surgeon Dr. Harding from [facility] who recommended continued antibiotics, close follow up, and BANDAR next week - 3 Blood Cultures grew MRSA - Repeat culture done 11/23, no growth to date - TTE in ED on 11/22: Loculated pericardial effusion improved since 10/28, Thickened tricuspid valve repair with severe tricuspid regurgitation - BANDAR on 11/23: 2 possible infectious foci on mitral and tricuspid valves, with a 0.5cmx0.2cm mobile echodensity of the atrial aspect of annuloplasty ring of the tricuspid valve - Continue IV Vancomycin, d/c IV cefepime 2gIV and Levofloxacin 750mg on 11/23 - History of Tricuspid Repair at [facility] 2/2 Endocarditis IVDU Aug 2016 - Urine Tox positive for Urine opiates, Urine methamphetamine/ amphertiamine , and Urine Marijuana - Currently awaiting BANDAR, which will be done on 11/30 to further assess antibiotic requirements and discharge planning - ID on board and after BANDAR ID will make recommendations for further management with the antibiotics 2. Back Pain - Patient denies any back pain today - CT L/T Spine Show no acute abnormalities - MRI T-Spine shows no evidence of discitis/osteomyelitis - MRI does show disc bulges the T7-8 and T8-T9 levels - D/c IV Dilaudid 11/27 3. Pulmonary Nodules - Patient is currently asymptomatic and denies any SOB - Likely 2/2 septic emboli - Continue IV Vancomycin - Thoracic spine MRI (11/24): Nonspecific 23 mm T1 and T2 bright lesion in the retroxiphoid portion of the chest. - Chest CT (11/25): 1) Interval midline sternotomy. New 32 mm retrosternal fluid collection abutting the pericardium. Postsurgical organizing hematoma vs abscess. 2) Possible chronic pulmonary emboli. 3) Small bilateral pleural effusions. 4) Scattered ill-defined bilateral pulmonary nodular opacities. An infectious/inflammatory etiology is favored 4. Hypomagnesemia - Corrected - Mg 2.0 yesterday 5. History of CHF 2/2 to Pulmonary Regurgitation and Right Heart Failure - Continue Lasix 40mg PO - Potassium Cl 20 mEq - D/c IV Fluids (11/27) to prevent fluid overload 6. History of IVDU - Suboxone 4 tab qAM 7. Psych - Anxiety - Ativan q4h PRN - Depression - Seroquel 100mg qAM, 200mg qHS - Sleep - Ambien 5mg PRN Sleep - Psych is on board and continue to appreciate their recommendation 8. GI Prophylaxis - Protonix 40mg qam 9. Tobacco Abuse - Nicotine Patch 10. DVT Prophylaxis - Heparin 11. Disposition - Patient is not a candidate for PICC given her hx of IV drug abuse. She will need to be on IV antibiotics for minimum 6 weeks. She needs to be at SNF or similar facility to complete her antibiotics course. At this moment awaiting for repeat BANDAR on 11/30 to make sure vegetations are not worsening. Resident Physician Supervision Note: I interviewed and examined the patient. Discussed with Dr. Colin and agree with findings and plan as documented in the note. Any exceptions or clarifications are listed here: Upon my examination, the patient was without complaints. Denied chest pain or shortness of breath. Tentative plan is for repeat transesophageal echocardiogram tomorrow. From that point, if there is no worsening seen in terms of his dictation or valvular heart disease, we can discuss with infectious disease regarding the duration of her intravenous antibiotics. Also discussed with case management options which would include transfer to a retirement or daily visits to the medical outpatient unit for intravenous antibiotics. Documented By: Jared Ortega
[2016-11-29] MEDS: QUETIAPINE FUMARATE 200 MG TAB PO SCH (20:32)
[2016-11-30] VITALS (24 sets, daily range): BP systolic 90–141; BP diastolic 54–82; PULSE 62–101; TEMP 36.4–36.8; O2SAT 94–100
[2016-11-30] MEDS ORDERED: VANCOMYCIN TROUGH SCH (05:30)
[2016-11-30 06:05] LABS: HEMATOCRIT 43.5 % (37-47); MEAN CELL VOLUME 90.2 fL (80-100); MEAN CORPUSCULAR HEMOGLOBIN 29.5 pg (25-34); MEAN CORPUSCULAR HGB CONC 32.6 g/dl (32-36); MEAN PLATELET VOLUME 10.5 fL (7.4-10.4); PLATELET COUNT 173 K/uL (130-400); RED BLOOD COUNT 4.82 M/uL (4.2-5.4); WHITE BLOOD COUNT 4.77 K/uL (4.8-10.8)
[2016-11-30] MEDS: VANCOMYCIN INJ 1,050 MG in SODIUM CHLORIDE 0.9% 250ML 250 ML IV SCH ×2 (06:09→13:25)
[2016-11-30 06:43] LABS: BUN/CREATININE RATIO 25.6 (10-20); CALCIUM 9.7 mg/dl (8.5-10.1); CREATININE 0.57 mg/dl (0.60-1.20); POTASSIUM 4.1 mmol/L (3.5-5.1)
[2016-11-30] MEDS ORDERED: MIDAZOLAM HCL 1 MG/ML 2ML VIAL ONE (07:27)
[2016-11-30] MEDS ORDERED: FENTANYL CITRATE INJ 50 MCG/1 ML 2 ML VIAL ONE (07:31)
[2016-11-30] MEDS ORDERED: PROPOFOL IV EMULSION 10 MG/ML 20 ML VIAL IV ONE (07:40)
[2016-11-30] MEDS: FUROSEMIDE 40 MG TAB PO SCH (08:43)
[2016-11-30] MEDS: QUETIAPINE FUMARATE 100 MG TAB PO SCH (08:44)
[2016-11-30] MEDS: PANTOprazole SOD 40 MG TAB PO SCH (08:44)
[2016-11-30] MEDS: ENOXAPARIN 40 MG/0.4 ML SYR SQ SCH (08:44)
[2016-11-30] MEDS: NICOTINE 21 MG/24 HR TDSY TD SCH (08:47)
--- NOTE | 2016-11-30 08:50 | Pharmacy Progress Note ---
Pharmacy Antibiotic Prog Note Date of Service: Nov 30, 2016. Subjective: The patient is currently receiving vancomycin 1050 mg IV every 8 hours. The patient is currently on day # 10 of IV therapy. Objective: Height (Feet): 5 Height (Inches): 5.00 Weight (Kilograms): 68.700 Levels: Item Value Date Time Vancomycin Level Trough 21.9 mcg/ml 11/25/16 1501 Vancomycin Level Trough 27.5 mcg/ml 11/26/16 1536 Vancomycin Level Trough 21.0 mcg/ml 11/27/16 1150 Vancomycin Level Trough 17.0 mcg/ml 11/28/16 2120 Vancomycin Level Trough 18.6 mcg/ml 11/30/16 0553 Lab Results (24hrs): Laboratory Tests Test 11/30/16 05:53 BUN/Creatinine Ratio 25.6 Blood Urea Nitrogen 15 mg/dl Creatinine 0.57 mg/dl White Blood Count 4.77 K/uL Assessment & Plan: Patient's laboratory values and vitals remain stable. She is currently going for a BANDAR today to re-assess. Duration of antibiotics will be determined by infectious disease afterwards. These drug levels are: Therapeutic Continue vancomycin 1050 mg IV every 8 hours. Goal peak level estimate: between 35 - 40 mcg/mL. Goal trough level estimate: between 15 - 20 mcg/mL (indication: endocarditis). Recheck trough based upon duration of therapy. Pharmacy will continue to follow and will adjust dose/frequency as necessary. Thank you
[2016-11-30] MEDS: BUPRENORPHINE/NALOXONE 2/0.5MG 1 TAB PO SCH (09:15)
--- NOTE | 2016-11-30 09:19 | Anesthesiology Progress Note ---
Anesthesia Post Op Note Date & Time Nov 30, 2016 at 09:19 Vital Signs Pain Intensity: 0 Vital Signs Past 12 Hours Date Time Temp Pulse Resp B/P Pulse Ox O2 Delivery O2 Flow Rate FiO2 11/30/16 08:37 36.7 71 20 99/62 94 Room Air 11/30/16 08:20 77 16 91/58 95 Room Air 11/30/16 08:10 77 16 95/53 95 Room Air 11/30/16 08:05 80 16 94/57 99 Room Air 4 11/30/16 08:00 79 16 100/56 99 Nasal Cannula 4 11/30/16 07:55 74 16 105/74 99 Nasal Cannula 4 11/30/16 07:50 76 14 98/67 100 Nasal Cannula 4 11/30/16 07:45 75 14 98/56 100 Nasal Cannula 4 11/30/16 07:40 73 14 141/82 100 Nasal Cannula 4 11/30/16 07:35 86 14 101/82 100 Nasal Cannula 4 11/30/16 07:33 76 14 106/56 100 Nasal Cannula 4 11/30/16 05:59 36.8 62 18 93/54 96 Room Air 11/30/16 04:00 Room Air 11/30/16 03:17 36.8 62 16 93/54 96 Room Air 11/30/16 00:01 96 Room Air 11/29/16 22:59 36.7 63 16 99/58 96 Room Air Notes Mental Status: alert / awake / arousable Nausea / Vomiting: adequately controlled Pain: adequately controlled Airway Patency, RR, SpO2: stable & adequate BP & HR: stable & adequate Hydration State: stable & adequate Anesthetic Complications: no major complications apparent
--- NOTE | 2016-11-30 10:29 | Cardiology Follow-Up ---
Subjective General Date of Service: Nov 30, 2016. Chief Complaint: follow up fever, bacteremia Pt evaluation today including: conversation w/ patient, physical exam, chart review, lab review, review of studies, conversation w/ technology applications consultant, review of inpatient medication list History of Present Illness The patient is a 26 year old female seen in follow up. BANDAR performed this AM without complications. No changes: MV mobile filaments unchanged. No obvious TV vegetation. Moderate TR. Blood cultures clear. No recurrent fevers. Allergies Coded Allergies: No Known Allergies (Unverified , 11/21/16) Social History Smoking Status: Current Every Day Smoker Hx Tobacco Use In Past Year?: Yes Hx Alcohol Use - Type And Amou: Yes Hx Substance Use - Type And Am: Yes Problem List Medical Problems: (1) Left sided chest pain Status: Acute (2) Pneumonia Status: Acute (3) Precordial chest pain Status: Acute (4) Pulmonary infiltrate Status: Acute (5) Sepsis Status: Acute (6) Withdrawal symptoms, drug or narcotic Status: Acute Review of Systems Respiratory: No cough, No dyspnea at rest, No hemoptysis, No shortness of breath, No sputum, No wheezing Cardiac: No PND, No chest pain, No claudication, No edema, No orthopnea, No palpitations Physical Exam Vital Signs Last Vital Signs Documentation Date Time Temp Pulse Resp B/P Pulse Ox O2 Delivery O2 Flow Rate FiO2 11/30/16 10:00 71 16 100/68 95 Room Air 11/30/16 09:15 36.7 11/30/16 08:05 4 Physical Exam Constitutional: Level of Distress: NAD Head: normocephalic Neck: supple, trachea midline Lungs: Auscultation: no wheezing, no rales/crackles Cardiovascular: Heart Auscultation: RRR, normal S1, normal S2, I/ WSM Peripheral Pulses: Radial Pulse: normal on the left Abdomen: Bowel Sounds: diminished Inspection & Palpation: non-distended Extremities: no edema, no varicosities Neurologic: Gait & Station: pertinent finding (no focal deficits) Cranial Nerves: grossly intact Assessment and Plan Assessment and Plan Impression: 26-year-old female 1. Endocarditis with subtle tricuspid annuloplasty ring vegetation and possible filamentous posterior MV vegetation on initial BANDAR. +MRSA bacteremia. - Repeat blood cultures are negative - Repeat BANDAR today with no obvious TV vegetation. Posterior MV mobile filamentous strands unchanged without significant MR. 2. CT chest 11/25/16 with a 3.2 cm fluid collection adjacent to the right side of sternum and pericardium. 3. Back pain resolved, no epidural abscess on MRI 4. Severe residual tricuspid valve regurgitation, moderate pulmonary hypertension, PA systolic pressure likely 55-60 mmHg based on transthoracic/ transesophageal echocardiogram. 5. Palpitations secondary to sinus tachycardia -Resolved Plan: Recommend continued medical management. Continue antibiotics per ID recommendations for 6 weeks. No further cardiac testing or intervention at this time. Laboratory Results Last 24 Hours Test 11/30/16 05:53 White Blood Count 4.77 K/uL Red Blood Count 4.82 M/uL Hemoglobin 14.2 g/dL Hematocrit 43.5 % Mean Corpuscular Volume 90.2 fL Mean Corpuscular Hemoglobin 29.5 pg Mean Corpuscular Hemoglobin Concent 32.6 g/dl RDW Standard Deviation 52.4 fL RDW Coefficient of Variation 15.8 % Platelet Count 173 K/uL Mean Platelet Volume 10.5 fL Sodium Level 138 mmol/L Potassium Level 4.1 mmol/L Chloride Level 100 mmol/L Carbon Dioxide Level 28 mmol/L Anion Gap 10.0 mmol/L Blood Urea Nitrogen 15 mg/dl Creatinine 0.57 mg/dl Est Creatinine Clear Calc Drug Dose 146.9 ml/min Estimated GFR () 149.3 Estimated GFR (Non- 128.8 BUN/Creatinine Ratio 25.6 Random Glucose 94 mg/dl Calcium Level 9.7 mg/dl Vancomycin Level Trough 18.6 mcg/ml
--- NOTE | 2016-11-30 11:03 | Progress Note ---
Subjective Date of Service: Nov 30, 2016. Subjective Pt evaluation today including: conversation w/ patient, physical exam, chart review, lab review pt seen in follow for MRSA sepsis, TV veg (h/o TV IE 2015- MSSA), and sternal collection. Repeat BANDAR done this am and negative for obvious veg. No plans for OR. She has been on IV vanco here and tolerating well. There is some concern of drug use in hospital, pt not candidate for picc with active drug use up until time of hospital admission. She has been afebrile. On my exam today, she is awake, states she is hungry but has no complaints.Denies f/c, cp, sob, cough. tolerating abx. d/w pcp regarding dispo. Repeat blood cultures from 11/22 negative and final. All remaining ros reviewed and are negative. Problem List Medical Problems: (1) Left sided chest pain Status: Acute (2) Pneumonia Status: Acute (3) Precordial chest pain Status: Acute (4) Pulmonary infiltrate Status: Acute (5) Sepsis Status: Acute (6) Withdrawal symptoms, drug or narcotic Status: Acute Objective Vital Signs Date Time Temp Pulse Resp B/P Pulse Ox O2 Delivery O2 Flow Rate FiO2 11/30/16 10:36 Room Air 11/30/16 10:00 71 16 100/68 95 Room Air 11/30/16 09:30 65 18 98/64 94 Room Air 11/30/16 09:15 36.7 67 16 98/62 95 Room Air 11/30/16 09:00 36.7 70 16 100/60 95 Room Air 11/30/16 08:37 36.7 71 20 99/62 94 Room Air 11/30/16 08:35 95 Room Air 11/30/16 08:20 77 16 91/58 95 Room Air 11/30/16 08:10 77 16 95/53 95 Room Air 11/30/16 08:05 80 16 94/57 99 Room Air 4 11/30/16 08:00 79 16 100/56 99 Nasal Cannula 4 11/30/16 07:55 74 16 105/74 99 Nasal Cannula 4 11/30/16 07:50 76 14 98/67 100 Nasal Cannula 4 11/30/16 07:45 75 14 98/56 100 Nasal Cannula 4 11/30/16 07:40 73 14 141/82 100 Nasal Cannula 4 11/30/16 07:35 86 14 101/82 100 Nasal Cannula 4 11/30/16 07:33 76 14 106/56 100 Nasal Cannula 4 11/30/16 05:59 36.8 62 18 93/54 96 Room Air 11/30/16 04:00 Room Air 11/30/16 03:17 36.8 62 16 93/54 96 Room Air 11/30/16 00:01 96 Room Air 11/29/16 22:59 36.7 63 16 99/58 96 Room Air 11/29/16 20:22 36.8 98 22 113/77 98 Room Air 11/29/16 20:00 Room Air 11/29/16 16:00 Room Air 11/29/16 15:33 36.5 75 16 87/48 97 11/29/16 14:03 Room Air 11/29/16 12:00 Room Air 11/29/16 11:31 36.8 109 18 121/63 96 Physical Exam General Appearance: WD/WN, no apparent distress, + pertinent finding (more awake today, more talkative) Neck: supple Respiratory/Chest: lungs clear, normal breath sounds, no respiratory distress Cardiovascular: regular rate, rhythm, no edema Abdomen: non tender, soft Extremities: non-tender, normal inspection, no pedal edema Neurologic/Psychiatric: alert, oriented x 3 Skin: normal color Laboratory Results Item Value Date Time Blood Culture - Final Complete 11/22/16 1950 Blood NO GROWTH Blood Culture - Final Complete 11/22/16 1945 Blood NO GROWTH Blood Culture - Final Complete 11/21/16 1851 Blood Staphylococcus Aureus Blood Culture - Final Complete 11/21/16 1841 Blood Staphylococcus Aureus Blood Culture - Final Complete 11/21/16 1834 Blood Staphylococcus Aureus Last 24 Hours Test 11/30/16 05:53 White Blood Count 4.77 K/uL Red Blood Count 4.82 M/uL Hemoglobin 14.2 g/dL Hematocrit 43.5 % Mean Corpuscular Volume 90.2 fL Mean Corpuscular Hemoglobin 29.5 pg Mean Corpuscular Hemoglobin Concent 32.6 g/dl RDW Standard Deviation 52.4 fL RDW Coefficient of Variation 15.8 % Platelet Count 173 K/uL Mean Platelet Volume 10.5 fL Sodium Level 138 mmol/L Potassium Level 4.1 mmol/L Chloride Level 100 mmol/L Carbon Dioxide Level 28 mmol/L Anion Gap 10.0 mmol/L Blood Urea Nitrogen 15 mg/dl Creatinine 0.57 mg/dl Est Creatinine Clear Calc Drug Dose 146.9 ml/min Estimated GFR () 149.3 Estimated GFR (Non- 128.8 BUN/Creatinine Ratio 25.6 Random Glucose 94 mg/dl Calcium Level 9.7 mg/dl Vancomycin Level Trough 18.6 mcg/ml Assessment and Plan (1) Infectious endocarditis Assessment & Plan: will need 6 weeks IV therapy from time of first negative culture, 11/22 blood cultures negative and final, stop date 01/03. She is not a candidate for picc line. If she is able to qualify for weekly dalvance therapy she is agreeable to weekly MTU infusions. if not, she will likely require placement for IV abx as she can not go home with picc line. will await. can follow with ID post d/c. will need weekly cbc,cmp, esr while on abx. d/w primary. (2) Staphylococcus aureus septicemia Continued [facility] stay due to: multiple IV medications needed Discharge planning: uncertain Problem Qualifiers (1) Infectious endocarditis: Infective endocarditis organism: bacterial Chronicity: unspecified Qualified Codes: I33.0 - Acute and subacute infective endocarditis
--- NOTE | 2016-11-30 11:27 | Family Medicine Progress Note ---
Progress Note Date of Service Nov 30, 2016. Subjective Pt evaluation today including: conversation w/ patient, physical exam, lab review Pain: Denies Voiding: no voiding problems Patient was seen at the bedside. She was drowsy just came back from BANDAR. Denied any complaints. Constitutional: No fever Respiratory: No cough, No dyspnea on exertion, No shortness of breath, No sputum, No wheezing Cardiovascular: No chest pain, No edema Abdomen: No constipation, No diarrhea, No nausea, No pain, No vomiting Musculoskeletal: No muscle pain Skin: No rash Medications Current Inpatient Medications Medications (Trade) Dose Ordered Sig/Varun Route Start Time Stop Time Status Last Admin Dose Admin Vancomycin HCl (Consult) 1 ea UD PRN N/A 11/21/16 21:30 12/21/16 21:29 Quetiapine Fumarate (seroQUEL TAB) 100 mg QAM PO 11/22/16 09:00 12/22/16 08:59 11/30/16 08:44 100 MG Quetiapine Fumarate (seroQUEL TAB) 200 mg HS PO 11/21/16 21:00 12/21/16 20:59 11/29/16 20:32 200 MG Acetaminophen (Tylenol Tab) 650 mg Q4H PRN PO 11/21/16 21:15 12/21/16 21:14 11/26/16 12:58 650 MG Magnesium Hydroxide (Milk Of Magnesia Susp) 30 ml Q6H PRN PO 11/21/16 21:15 12/21/16 21:14 Diphenhydramine HCl (Benadryl Inj) 25 mg Q4H PRN IV 11/21/16 21:15 12/21/16 21:14 11/22/16 19:19 25 MG Al Hydrox/Mg Hydrox/ Simethicone 15 ml 15 ml Q4H PRN PO 11/21/16 21:15 12/21/16 21:14 Promethazine HCl/ Sodium Chloride (Phenergan Inj/ Nss 50ml) 50.5 ml @ 202 mls/hr Q4H PRN IV 11/21/16 21:15 12/21/16 21:14 11/22/16 21:39 202 MLS/HR Zolpidem Tartrate (Ambien Tab) 5 mg HSZ PRN PO 11/21/16 21:15 12/21/16 21:14 11/22/16 21:37 5 MG Ondansetron HCl (Zofran Inj) 4 mg Q6H PRN IV 11/21/16 21:15 12/21/16 21:14 Furosemide (Lasix Tab) 40 mg QAM PO 11/24/16 09:00 12/24/16 08:59 11/30/16 08:43 40 MG Haloperidol Lactate (Haldol Inj) 5 mg Q6 PRN IM 11/23/16 16:45 12/23/16 16:44 11/29/16 13:22 5 MG Pantoprazole Sodium (Protonix Tab) 40 mg QAM PO 11/25/16 09:00 12/25/16 08:59 11/30/16 08:44 40 MG Buprenorphine/ Naloxone (Suboxone Tab) 4 tab QAM PO 11/26/16 09:00 12/26/16 08:59 11/30/16 09:15 4 TAB Enoxaparin Sodium (Lovenox Inj) 40 mg QAM SQ 11/26/16 09:00 12/26/16 08:59 11/30/16 08:44 40 MG Nicotine (Nicoderm Cq 21MG Patch) 1 patch QAM TD 11/26/16 09:00 12/26/16 08:59 11/30/16 08:47 1 PATCH Miscellaneous 1 ea 1 ea HS N/A 11/25/16 21:00 12/25/16 20:59 11/29/16 20:32 1 EA Vancomycin HCl/ Sodium Chloride (Vancomycin Inj/ Nss 250ml) 271 ml @ 125 mls/hr Q8H IV 11/27/16 22:00 01/07/17 21:59 11/30/16 06:09 125 MLS/HR Nicotine Polacrilex (Nicorette 2MG Gum) 1-2 PIECES Q2H PRN MT 11/28/16 19:15 12/28/16 18:59 11/29/16 20:31 2 PIECE Objective Vital Signs Date Time Temp Pulse Resp B/P Pulse Ox O2 Delivery O2 Flow Rate FiO2 11/30/16 11:11 36.8 77 18 93/55 96 Room Air 11/30/16 10:36 Room Air 11/30/16 10:00 71 16 100/68 95 Room Air 11/30/16 09:30 65 18 98/64 94 Room Air 11/30/16 09:15 36.7 67 16 98/62 95 Room Air 11/30/16 09:00 36.7 70 16 100/60 95 Room Air 11/30/16 08:37 36.7 71 20 99/62 94 Room Air 11/30/16 08:35 95 Room Air 11/30/16 08:20 77 16 91/58 95 Room Air 11/30/16 08:10 77 16 95/53 95 Room Air 11/30/16 08:05 80 16 94/57 99 Room Air 4 11/30/16 08:00 79 16 100/56 99 Nasal Cannula 4 11/30/16 07:55 74 16 105/74 99 Nasal Cannula 4 11/30/16 07:50 76 14 98/67 100 Nasal Cannula 4 11/30/16 07:45 75 14 98/56 100 Nasal Cannula 4 11/30/16 07:40 73 14 141/82 100 Nasal Cannula 4 11/30/16 07:35 86 14 101/82 100 Nasal Cannula 4 11/30/16 07:33 76 14 106/56 100 Nasal Cannula 4 11/30/16 05:59 36.8 62 18 93/54 96 Room Air 11/30/16 04:00 Room Air 11/30/16 03:17 36.8 62 16 93/54 96 Room Air 11/30/16 00:01 96 Room Air 11/29/16 22:59 36.7 63 16 99/58 96 Room Air 11/29/16 20:22 36.8 98 22 113/77 98 Room Air 11/29/16 20:00 Room Air 11/29/16 16:00 Room Air 11/29/16 15:33 36.5 75 16 87/48 97 11/29/16 14:03 Room Air 11/29/16 12:00 Room Air 11/29/16 11:31 36.8 109 18 121/63 96 Physical Exam General Appearance: WD/WN, no apparent distress Neck: supple, trachea midline Respiratory/Chest: chest non-tender, lungs clear, normal breath sounds, no respiratory distress, no accessory muscle use Cardiovascular: regular rate, rhythm, no edema Abdomen: normal bowel sounds, non tender, soft, no pulsatile mass Extremities: non-tender, no pedal edema Neurologic/Psychiatric: alert, normal mood/affect Skin: normal color, warm/dry Laboratory Results Results Past 24 Hours Test 11/30/16 05:53 Range/Units White Blood Count 4.77 4.8-10.8 K/uL Red Blood Count 4.82 4.2-5.4 M/uL Hemoglobin 14.2 12.0-16.0 g/dL Hematocrit 43.5 37-47 % Mean Corpuscular Volume 90.2 80-100 fL Mean Corpuscular Hemoglobin 29.5 25-34 pg Mean Corpuscular Hemoglobin Concent 32.6 32-36 g/dl RDW Standard Deviation 52.4 36.4-46.3 fL RDW Coefficient of Variation 15.8 11.5-14.5 % Platelet Count 173 130-400 K/uL Mean Platelet Volume 10.5 7.4-10.4 fL Sodium Level 138 136-145 mmol/L Potassium Level 4.1 3.5-5.1 mmol/L Chloride Level 100 98-107 mmol/L Carbon Dioxide Level 28 21-32 mmol/L Anion Gap 10.0 3-11 mmol/L Blood Urea Nitrogen 15 7-18 mg/dl Creatinine 0.57 0.60-1.20 mg/dl Est Creatinine Clear Calc Drug Dose 146.9 ml/min Estimated GFR () 149.3 Estimated GFR (Non- 128.8 BUN/Creatinine Ratio 25.6 10-20 Random Glucose 94 70-99 mg/dl Calcium Level 9.7 8.5-10.1 mg/dl Vancomycin Level Trough 18.6 SEE COMMENT mcg/ml Assessment and Plan Patient is a 26 year old IVDU that presented on 11/22 to the ED with chest pain, fever, and chills. 1. Subacute Bacterial Endocarditis - Dr. Peguero has discussed case with patients cardiac surgeon [place]. Hard[place] [facility] [place] continued antibiotics, close follow up, and BANDAR next week - 3 Blood Cultures grew MRSA - Repeat culture done 11/23, no growth to date - TTE in ED on 11/22: Loculated pericardial effusion improved since 10/28, Thickened tricuspid valve repair with severe tricuspid regurgitation - BANDAR on 11/23: 2 possible infectious foci on mitral and tricuspid valves, with a 0.5cmx0.2cm mobile echodensity of the atrial aspect of annuloplasty ring of the tricuspid valve - Continue IV Vancomycin, d/c IV cefepime 2gIV and Levofloxacin 750mg on 11/23 - [place] of [place] [facility] [place]2 Endocarditis IVDU Aug 2016 - Urine Tox positive for Urine opiates, Urine methamphetamine/ amphertiamine , and Urine Marijuana - Currently awaiting BANDAR, which will be done on 11/30 to further assess antibiotic requirements and discharge planning - ID on board and after BANDAR ID will make recommendations for further management with the antibiotics - BANDAR (11/30): no obvious TV vegetation. Posterior MV mobile filamentous strands unchanged without significant MR - ID Recommendation (11/30): Per Dr. Baum patient will need 6 weeks IV therapy from time of first negative culture (11/22) and stop date 01/03. Not a candidate for picc line. If qualify for weekly Dalvance therapy, weekly infusion in [facility] would be a option. If not, she will likely require placement for IV abx given can't have PICC line. Will need weekly CBC, CMP, ESR while on antibiotics. - Cardio recommended no further intervention at this moment and continue with Abx treatment. 2. Back Pain - Patient denies any back pain today - CT L/T Spine Show no acute abnormalities - MRI T-Spine shows no evidence of discitis/osteomyelitis - MRI does show disc bulges the T7-8 and T8-T9 levels - D/c IV Dilaudid 11/27 3. Pulmonary Nodules - Patient is currently asymptomatic and denies any SOB - Likely 2/2 septic emboli - Continue IV Vancomycin - Thoracic spine MRI (11/24): Nonspecific 23 mm T1 and T2 bright lesion in the retroxiphoid portion of the chest. - Chest CT (11/25): 1) Interval midline sternotomy. New 32 mm retrosternal fluid collection abutting the pericardium. Postsurgical organizing hematoma vs abscess. 2) Possible chronic pulmonary emboli. 3) Small bilateral pleural effusions. 4) Scattered ill-defined bilateral pulmonary nodular opacities. An infectious/inflammatory etiology is favored 4. Hypomagnesemia - Corrected 5. History of CHF 2/2 to Pulmonary Regurgitation and Right Heart Failure - Continue Lasix 40mg PO - Potassium Cl 20 mEq - D/c IV Fluids (11/27) to prevent fluid overload 6. History of IVDU - Suboxone 4 tab qAM 7. Psych - Anxiety - Ativan q4h PRN - Depression - Seroquel 100mg qAM, 200mg qHS - Sleep - Ambien 5mg PRN Sleep - Psych is on board and continue to appreciate their recommendation 8. GI Prophylaxis - Protonix 40mg qam 9. Tobacco Abuse - Nicotine Patch 10. DVT Prophylaxis - Heparin 11. Disposition - Patient is not a candidate for PICC given her hx of IV drug abuse. She will need to be on IV antibiotics for minimum 6 weeks. She can have weekly Dalvance therapy in [facility] or if not will she will likely require placement for IV abx given can't have PICC line. Case management on board. Resident Physician Supervision Note: I was present with Dr. Colin during the history and exam. I discussed the case with the resident and agree with the findings and plan as documented in the note. Any exceptions or clarifications are listed here: Patient without complaint. I discussed the results of today's BANDAR with cardiology. I also discussed case with Infectious Disease. Currently, if insurance will cover, Delvance administered as an outpatient would make the most sense. Case Management is working on the logistics of this. Documented By: Jared Ortega
--- NOTE | 2016-11-30 14:55 | TEE ---
*NOTICE TO RECEIVING [employer] This information is strictly Confidential and protected under [place] law. [place] law prohibits you from making any further disclosure of this information unless further disclosure is expressly permitted by the written consent of the person to whom it pertains or is authorized by law. A general authorization for the release of medical or other information is not sufficient for this purpose. Hospital accepts no responsibility if the information is made available to any other person, INCLUDING THE PATIENT. Interpretation Summary * Name: BRYSON RIVERO [id number] Study Date: 11/30/2016 07:31 AM BP: 106/56 mmHg * Patient Location: .2T\S\S236\S\1 HR: 76 * : 1990 (M/d/yyyy) Gender: Female Height: 65 in * Age: 26 yrs Ethnicity: [place] Weight: 151 lb * Ordering Physician: Fito Rodriguez * Referring Physician: Wolf Kurtz * Performed By: Jeanette Urbina RDCS * * Reason For Study: ENC * BSA: 1.8 m2 * Compared to prior study, there is no significant change. * -- Conclusions -- * 0.5 cm x 0.2 cm non mobile echodensity on the atrial aspect of the annuloplasty ring adjacent to the right ventricular lateral wall. * There is moderate tricuspid regurgitation. * Doppler findings do not suggest pulmonary hypertension. * There is a small, subtle, linear, mobile echodensity on the atrial aspect of the posterior leaflet of the mitral valve. * There is trace mitral regurgitation. Procedure Details * The transesophageal portion of this study was personally supervised by the undersigned interpreting physician. * BANDAR Probe #2 utilized for procedure. * The study was performed in Cardiac Catheterization Lab. * Time out was conducted by the physician, nurse, and mammography technologist with positive identification of patient and procedure. * Informed consent for Transesophageal Echocardiogram was obtained prior to the procedure. * An intravenous line was placed. A topical anesthetic agent was used for oropharangeal anesthesia. A bite block was inserted. * Sedation performed by the anesthesia department. * The patient's vital signs, including blood pressure, heart rate, pulse oximetry and cardiac rhythm were monitored throughout the procedure . * The posterior oropharynx was anesthetized using a topical anesthetic spray. A bite guard was inserted. * A multifrequency, multiplane transesopheageal echocardiographic endoscope was inserted and manipulated in the standard fashion to achieve multiplane views. * The transesophageal probe was passed without difficulty. * The usual views were obtained; basal, mid-esophageal, transgastric and aortic views. * The patient tolerated the procedure well without evidence of orophangeal or esophageal trauma. * A 2D transesophageal echocardiogram with spectral and color flow Doppler was performed. * Contrast injection with agitated saline was performed. * A 2D transesophageal echocardiogram with Doppler and color flow Doppler was performed. Left Ventricle * The left ventricle is normal in size. * There is no thrombus. * There is normal left ventricular wall thickness. * Ejection Fraction = 60-65%. * The left ventricular wall motion is normal. Right Ventricle * The right ventricular cavity size is normal (basal dimension <4.2 cm in right ventricular apical 4-chamber view). * The right ventricular systolic function is normal. Atria * The left atrial size is normal. * Right atrial size is normal. * The interatrial septum is intact with no evidence for an atrial septal defect. Mitral Valve * There is no mitral valve stenosis. * There is trace mitral regurgitation. * There is a small, subtle, linear, mobile echodensity on the atrial aspect of the posterior leaflet of the mitral valve. Tricuspid Valve * There is no tricuspid stenosis. * There is moderate tricuspid regurgitation. * Doppler findings do not suggest pulmonary hypertension. * An annuloplasty ring is noted in the tricuspid position. * 0.5 cm x 0.2 cm non mobile echodensity on the atrial aspect of the annuloplasty ring adjacent to the right ventricular lateral wall. Aortic Valve * The aortic valve is trileaflet. * No hemodynamically significant valvular aortic stenosis. * There is no significant aortic regurgitation. Pulmonic Valve * The pulmonic valve leaflets are thin and pliable; valve motion is normal. * There is no pulmonic valvular stenosis. * There is no pulmonic valvular regurgitation. Great Vessels * The aortic root is normal size. Pericardium * There is no pericardial effusion.
[2016-11-30] MEDS: HALOPERIDOL LACTATE 5 MG/ML 1 ML VIAL IM PRN (15:54)
--- NOTE | 2016-11-30 16:24 | Discharge Instructions ---
Discharge Instructions Admission Reason for Admission: SBE Discharge Discharge Diagnosis / Problem: Endocarditis Discharge Goals Goal(s): Improve function, Learn about illness, Diagnostic testing, Therapeutic intervention, Prevent Disease Progression Activity Recommendations Activity Limitations: resume your previous activity Lifting Limitations: none Exercise/Sports Limitations: none May Resume Sexual Activity: when tolerated Shower/Bathe: no limitations Driving or Machine Use: no limitations . Instructions / Follow-Up Instructions / Follow-Up You are scheduled for an antibiotic infusion tomorrow here at medical outpatient. You will be scheduled for subsequent infusions thereafter (in two weeks, and then weekly for a total of six weeks). Current Hospital Diet Patient's current hospital diet: AHA Diet (Heart Healthy) Discharge Diet Recommended Diet: Regular Diet Procedures Procedures Performed: 1) BANDAR Pending Studies Studies pending at discharge: no Medical Emergencies . Who to Call and When: Medical Emergencies: If at any time you feel your situation is an emergency, please call 911 immediately. . Non-Emergent Contact Non-Emergency issues call your: Primary Care Provider, Egyptologist Call Non-Emergent contact if: temperature is above 100.5, your pain is worsening, you have any medication questions . . "Provider Documentation" section prepared by Jared Ortega. VTE Core Measure Inpt VTE Proph given/why not?: SCD's
--- NOTE | 2016-11-30 16:48 | Discharge Summary ---
Discharge Summary Date of Service Nov 30, 2016. Discharge Summary Admission Date: Nov 21, 2016 at 20:13 Discharge Date: Nov 30, 2016 Discharge Disposition: Home Principal Diagnosis: 1) Endocarditis Procedures: 1) BANDAR (11/22) 2) TTE (11/23) 3) BANDAR (11/30) Consultations: 1) Cardiology 2) Infectious Disease Pending Studies/Follow-Up: None Medication Reconciliation Continued Medications: Furosemide (Lasix) 40 Mg Tab 40 MG PO DAILY, TAB Quetiapine Fumarate (Seroquel) 100 Mg Tab 100 MG PO QAM, TAB Quetiapine Fumarate (Seroquel) 100 Mg Tab 200 MG PO HS, TAB Referrals At Discharge Follow up Referrals: Family Practice Referral - Within 1-2 Weeks with Wolf Kurtz Follow Up Infectious Disease - Within 1-2 Weeks @ [facility] Provider Group with Ale Henriquez .AICHA Follow Up Admission Information HPI (per Admitting provider): 26-year-old female presents to the emergency department noting intermittent substernal stabbing and pinching chest pain. She also noted some shortness of breath. The patient had review of systems positive for fevers chills nausea vomiting and shakes the previous 24-36 hrs. The patient had similar symptoms for which she saw her primary care physician. She was prescribed a Z-César. In retrospect, she reported approximately 10 episodes of fevers chills since shakes over the previous 2 months. The patient had been diagnosed with bacterial endocarditis in August 2016 and subsequently underwent a tricuspid valve replacement [facility]. The patient has a known history of IV drug abuse involving hair when Malagon salts and other drugs as well. Upon admission she reported her last use was in April 2016. Physical Exam (per Admitting): The patient is awake, alert and oriented 3, normocephalic and atraumatic, lying in bed and in no acute distress. She intermittently becomes agitated and anxious and hyperventilating while in the ED. HEENT--PERRL, EOMI, mucous membranes and oropharynx dry. Neck--supple, no JVD or bruits, thyroid normal, trachea midline, no adenopathy. Heart-- tachycardic and regular, 3/6 systolic murmur, no rubs or gallops. Lungs--diminished throughout, no respiratory distress, no accessory muscle use. Abdomen--normal bowel sounds and soft, nontender and nondistended, no hernias or masses, no organomegaly. Extremities--no cyanosis, clubbing or edema. There are good distal pulses b/l. Dermatologic--numerous track gee noted on upper extremities bilaterally. Neurologic--cranial nerves II through XII grossly intact, motor and sensory examination normal. Rheumatologic--normal range of motion, nontender, muscles and joints. Psychiatric--intermittently anxious and agitated affect, in particular became fearful when approached the idea of a central venous access due to concerns regarding pain. Hospital Course The patient was admitted to the telemetry unit. Cardiology and infectious disease were consult. On November 22 the patient underwent a transthoracic echocardiogram which was nondiagnostic with regards endocarditis. On the following day, November 23, the patient underwent the first of two transesophageal echocardiograms during her admission. This demonstrated a subtle linear mobile echodensity on the atrial aspect of the posterior leaf of the mitral valve compatible with an early vegetation. There is noted to be trace mitral regurgitation and evidence of a previous tricuspid valve repair with annuloplasty ring. There was a 0.5 cm x 0.2 cm mobile echodensity on the atrial aspect of the annuloplasty ring adjacent to the right ventricular lateral wall. There was no evidence of abscess. There is noted to be severe tricuspid regurgitation, moderate pulmonary hypertension, left ventricular ejection fraction of 50-55%. The patient was started on broad-spectrum metabolic sequelae and vancomycin, cefepime, and levofloxacin. The patient secondary to back pain. A CT scan of the lumbar and thoracic spine showed no acute abnormalities. An MRI of the thoracic spine showed no evidence of discitis or osteomyelitis. CT scan of the chest did show evidence of likely septic emboli. Also the CT scan of the chest performed on November 25 showed a 32 mm retrosternal fluid collection abutting the pericardium thought to be a postsurgical organizing hematoma. 3 out of 3 blood cultures ultimately returned positive for staph aureus. Due to the patient's history of intravenous drug abuse she was thought to be candidate for a PICC line insertion with home antibiotics. Options included chcf placement or Dalvance admission in the medical outpatient unit. Per infectious disease recommendation, the patient will receive a loading dose tomorrow in the medical outpatient unit and then return in 2 weeks for weekly maintenance doses thereafter. She will need antibiotic coverage for an additional 4-6 weeks, likely 6 weeks given her history. The patient's primary care physician had made contact with our infectious disease specialist prior to discharge and he is aware of the above plan. I stressed with the patient the importance of following through with the antibiotics. I stressed the importance of abstaining from all other legal and illicit drugs both taken orally and intravenously. I reviewed the signs and symptoms of worsening disease including fever, chills, chest pain, sweats, and shortness of breath. I reviewed the importance of following up with both her primary care physician and infectious disease. Total time spent on discharge = This includes examination of the patient, discharge planning, medication reconciliation, and communication with other providers. Discharge Instructions See discharge instructions and above.
[2016-12-01] MEDS ORDERED: BUPR1SUB23 PO (14:07)
== END 2016-11-30 17:47 | disposition home or self-care (01) | DRG 871 ==
LOC: ENRESERVTM → ENRESERVDT → C.EDB 17:41 → C.EDINP 20:13 → C.2T 11-22 00:54 → C.MS4W 11-30 12:40
PROVIDERS: ADMIT Hospitalist; ATTEND Family Medicine
PROC: B246ZZZ Ultrasonography of Right and Left Heart (ICD-10-PCS; 2016-11-22)
PROC: B246ZZ4 Ultrasonography of Right and Left Heart, Transesophageal (ICD-10-PCS; principal; 2016-11-23 09:30)
PROC: B246ZZ4 Ultrasonography of Right and Left Heart, Transesophageal (ICD-10-PCS; 2016-11-30)
DX: A41.02 Sepsis due to Methicillin resistant Staphylococcus aureus (principal); I76 Septic arterial embolism; I33.0 Acute and subacute infective endocarditis; I31.3 Pericardial effusion (noninflammatory); J18.9 Pneumonia, unspecified organism; I27.82 Chronic pulmonary embolism; F15.20 Other stimulant dependence, uncomplicated; F19.20 Other psychoactive substance dependence, uncomplicated; F11.23 Opioid dependence with withdrawal; F17.210 Nicotine dependence, cigarettes, uncomplicated; Z95.2 Presence of prosthetic heart valve; I36.1 Nonrheumatic tricuspid (valve) insufficiency; I27.2 Other secondary pulmonary hypertension; B19.20 Unspecified viral hepatitis C without hepatic coma; E66.9 Obesity, unspecified; F41.9 Anxiety disorder, unspecified; E83.42 Hypomagnesemia; R91.8 Other nonspecific abnormal finding of lung field

== ENCOUNTER 2017-01-31 14:54 | Emergency (ER) | payer OTHER ==
[~2017-01-31] VITALS: Ht 165.1 cm; Wt 63.2 kg
[~2017-01-31 14:54] MED LIST changes: +BUPR1SUB23 PO; -CLON0.5T3 PO; -CMD5 PO; -CRG125 PO; +FRS/40 PO; -LSN5 PO
[2017-01-31 14:59] VITALS: TEMP 36.4; Ht 165.1 cm; Wt 63.2 kg
[2017-01-31] MEDS ORDERED: XYLOCAINE 1%/SOD BICARB 20 ML VIAL INFIL ONE (15:30)
--- NOTE | 2017-01-31 15:37 | EMERGENCY ROOM VISIT NOTE ---
ED Visit Note First contact with patient: 15:08 CHIEF COMPLAINT: Finger laceration HISTORY OF PRESENT ILLNESS: This 26-year-old female patient presents to the emergency department ambulatory after cutting the left first finger is on a knife at home prior to arrival. The bleeding has stopped. Denies weakness or numbness of the finger. The patient has full range of motion of the fingers. The patient denies any pain. The patient denies any other injuries. The patient' s tetanus shot is up to date. REVIEW OF SYSTEMS: A 6 system review of systems was completed with positives and pertinent negatives listed in the HPI. ALLERGIES: No known drug allergies MEDICATIONS: None PMH: The patient denies SOCIAL HISTORY: The patient lives locally PHYSICAL EXAM: Vital Signs: Reviewed Nurse's notes, vital signs stable. GENERAL : This 26-year-old female, in no acute distress, well developed, well nourished. SKIN: There is a 2 cm long laceration on the distal palmar aspect of the left first finger. The edges gape apart with traction. There is no foreign material in the wound and it looks clean. There is no bleeding. No deep structures such as tendons, bones, or nerves are seen in the base of the wound. Extension and flexion of the finger is full and strong. Full range of motion of the wrist and other fingers. Capillary refill less than 2 seconds. Normal sensation to light and sharp touch. EMERGENCY DEPARTMENT COURSE: I examined the patient. The patient sustained a very small and superficial laceration to the palmar aspect of the left distal thumb. The patient seemed very agitated. Her exam seems very out of proportion to complaints. I do not feel that this would do well with glue. Initially, Alfonso RUIZ attempted to a digital block but the patient did not tolerate. She was screaming profanities. She was shaking her hand around the room and blood was dripping all over the bed. I then went in the room to perform the digital block and again the patient was completely out of control. I performed a digital block. I advised her that her behavior seems to be more than I expect for this complaint. At this time, she said I could go "fk myself" and she continued to scream profanities. We had to close the door as she was out of control and disruptive to other patients. At this time, I advised the nurse that she could sign out AGAINST MEDICAL ADVICE if she did not feel that she could have the sutures done and cooperate. I also asked to have security come to the room. At this time the patient calmed down and apologized. The patient was able to tolerate the sutures performed by the PA student. Using sterile technique the wound was cleaned with Betadine. 8 ml of 1% buffered lidocaine was used to perform a digital block to anesthetize the patient. The area was sterilely draped. Once the patient was numb, the wound was copiously irrigated under pressure with sterile saline. The wound was explored and there were no deep structures such as tendons, bone, or ligaments present. The laceration was repaired using 5 simple interrupted 5-0 nylon sutures. The patient tolerated the procedure well. The bleeding stopped. The area was cleaned with sterile saline and dressed with bacitracin ointment and bandage. The patient was discharged home in good condition. DIAGNOSIS: Finger laceration DISCHARGE INSTRUCTIONS & TREATMENT: Keep wound clean and dry. Do not allow any crusting or dried blood to accumulate on sutures. If this occurs, use a 1:1 solution of hydrogen peroxide/water on a Q-tip to clean the wound. Use an antibiotic ointment for 3-4 days, then let wound dry. Suture removal in 10-12 days. Return sooner for any signs of infection (increasing redness, swelling, drainage). Ice and elevate for swelling and pain. Ibuprofen 600 mg every 6 hrs for pain. Keep covered when in sun until sutures removed then SPF 50 or higher for one year. Vitamin E oil if desired two weeks after suture removal for reduction of scar. Current/Historical Medications No Active Prescriptions or Reported Meds Allergies Coded Allergies: No Known Allergies (Unverified , 01/31/17) Vital Signs Date Time Temp Pulse Resp B/P Pulse Ox O2 Delivery O2 Flow Rate FiO2 01/31/17 16:36 100 18 96/66 95 01/31/17 14:59 36.4 106 18 113/70 95 Room Air Departure Information Impression Primary Impression: Laceration Dispostion Home / Self-Care Condition GOOD Prescriptions No Active Prescriptions or Reported Meds Referrals No Doctor, Assigned (PCP) Patient Instructions ED Laceration All, [facility] Additional Instructions Keep wound clean and dry. Do not allow any crusting or dried blood to accumulate on sutures. If this occurs, use a 1:1 solution of hydrogen peroxide/ water on a Q-tip to clean the wound. Use an antibiotic ointment for 3-4 days, then let wound dry. Suture removal in 10-12 days. Return sooner for any signs of infection (increasing redness, swelling, drainage). Ice and elevate for swelling and pain. Ibuprofen 600 mg every 6 hrs for pain. Keep covered when in sun until sutures removed then SPF 50 or higher for one year. Vitamin E oil if desired two weeks after suture removal for reduction of scar.
[2017-01-31 16:36] VITALS: BP 96/66; PULSE 100; O2SAT 95
[2017-08-07] MEDS ORDERED: LEVE750T PO (04:41)
[2017-08-07] MEDS ORDERED: VENL150C56 PO (04:41)
[2017-08-07] MEDS ORDERED: RTL20 PO (04:41)
[2017-08-07] MEDS ORDERED: QUET1TAB34 PO ×2 (04:41)
[2017-08-07] MEDS ORDERED: DOXY100C2 PO (05:51)
[2017-08-09] MEDS ORDERED: EFFSR/75 PO (14:59)
[2017-08-09] MEDS ORDERED: penicillin (15:02)
[2017-08-09] MEDS ORDERED: KPP/1000 PO (18:32)
[2017-08-09] MEDS ORDERED: VENL150T33 PO (18:32)
[2017-08-09] MEDS ORDERED: ASPEC81 PO (18:32)
== END 2017-01-31 16:37 | disposition home or self-care (01) ==
LOC: C.EDB 14:55 → C.EDD 16:37
DX: S61.012A Laceration without foreign body of left thumb without damage to nail, initial encounter (principal); W26.0XXA Contact with knife, initial encounter

== ENCOUNTER 2017-02-04 21:50 | Emergency (ER) | payer OTHER ==
[~2017-02-04] VITALS: Ht 165.1 cm; Wt 63.1 kg
[2017-02-04 21:53] VITALS: BP 138/73; PULSE 143; TEMP 36.7; O2SAT 100; Ht 165.1 cm; Wt 63.1 kg
--- NOTE | 2017-02-04 22:31 | EMERGENCY ROOM VISIT NOTE ---
History First contact with patient: 22:09 Chief Complaint: OTHER COMPLAINT Stated Complaint: BACK NUMB, CHEST HURTING FROM ANXIETY, NECK HURTS History of Present Illness The patient is a 26 year old female who presents to the Emergency Room with complaints of neck pain that started yesterday after riding on a 4 castelan. The patient now presents to the emergency department for evaluation as she feels that part of her neck is sticking out farther than another part of her neck. She does not recall a distinct injury or trauma. The patient is agitated on presentation, and admits to smoking marijuana today. She also reportedly took bath salts yesterday. She presents to the emergency department after being dropped off by her boyfriend. The patient states that she does not want to be at this facility, and is trying to get a [facility]. The patient is unsure why her boyfriend brought her here, and states that she would like to leave. She does not have suicidal or homicidal ideation. She rates her discomfort a 0/10. Review of Systems More than 10 systems were reviewed and otherwise negative with the exception of history of present illness. Past Medical/Surgical History Medical Problems: (1) Drug withdrawal headache with perceptual disturbance (2) Heroin abuse (3) Hypotension (4) Infectious endocarditis (5) No Known Active Medical Problems (6) Polysubstance dependence (7) Right lower lobe pneumonia (8) SBE (subacute bacterial endocarditis) (9) Staphylococcus aureus septicemia (10) Syncope (11) Unspecified episodic mood disorder Family History Patient reports no known family medical history. Social History Smoking Status: Current Every Day Smoker Drug Use: heroin, other Marital Status: single Housing Status: other Occupation Status: unemployed Current/Historical Medications No Active Prescriptions or Reported Meds Allergies Coded Allergies: No Known Allergies (Unverified , 01/31/17) Physical Exam Vital Signs Date Time Temp Pulse Resp B/P Pulse Ox O2 Delivery O2 Flow Rate FiO2 02/04/17 21:53 36.7 143 28 138/73 100 Room Air Physical Exam VITALS: Vitals are noted on the nurse's note and reviewed by myself. Vital signs stable. GENERAL: Mildly agitated appearing white female who does not appear in acute distress. Exam is limited secondary to patient's cooperation. EYES: Pupils equal round and reactive to light and accommodation. Conjunctivae without injection, sclerae without icterus. Extraocular movements intact. MUSCULOSKELETAL: No muscle atrophy, erythema, or edema noted. Full range of motion without joint tenderness in all extremities. NEURO: Patient was alert and oriented to person place and time. CN II through XII grossly intact. Medical Decision & Procedures ED Course Physical exam and history were performed. Nursing notes and EMR were reviewed. Patient appears to have reports of neck pain that started yesterday after riding on a 4 castelan. On my presentation to the room there are 3 security guards outside of the patient's room. She does appear agitated, and states that she does not wish for medical care at this facility. She is requesting to leave from this facility so that her boyfriend can take her to [facility]. The patient is on her cell phone, stating that she is talking to her sister who is in skilled nursing. She refuses to get off the phone as this is a "prepaid call" from skilled nursing. The patient is refusing interventions, and did request something to drink. I felt that this would be reasonable as this may help get the patient under control. As I left the emergency department room to get the patient a drink, she immediately eloped from the department. The patient is not actively suicidal or homicidal. She appears agitated, probably from marijuana use just prior to arrival, but over she is oriented. She appears capable of making this decision by herself. She did leave AGAINST MEDICAL ADVICE and no further interventions were performed. The charge nurse was notified. The chart was completed utilizing [employer] Speech Voice Recognition Software. Grammatical errors, random word insertions, pronoun errors, and incomplete sentences are an occasional consequence of this system due to software limitations, ambient noise, and hardware issues. Any formal questions or concerns about the content, text, or information contained within the body of this dictation should be directly addressed to the provider for clarification. . Medical Decision Differential diagnosis includes, but is not limited to: Drug abuse Impression Primary Impression: Agitation Additional Impression: Drug abuse Departure Information Prescriptions No Active Prescriptions or Reported Meds Referrals No Doctor, Assigned (PCP) Patient Instructions My [facility] Health Problem Qualifiers
[2017-08-07] MEDS ORDERED: LEVE750T PO (04:41)
[2017-08-07] MEDS ORDERED: RTL20 PO (04:41)
[2017-08-07] MEDS ORDERED: VENL150C56 PO (04:41)
[2017-08-07] MEDS ORDERED: QUET1TAB34 PO ×2 (04:41)
[2017-08-07] MEDS ORDERED: DOXY100C2 PO (05:51)
[2017-08-09] MEDS ORDERED: EFFSR/75 PO (14:59)
[2017-08-09] MEDS ORDERED: penicillin (15:02)
[2017-08-09] MEDS ORDERED: VENL150T33 PO (18:32)
[2017-08-09] MEDS ORDERED: KPP/1000 PO (18:32)
[2017-08-09] MEDS ORDERED: ASPEC81 PO (18:32)
== END 2017-02-04 22:20 | disposition left against medical advice (07) ==
LOC: C.EDB 21:52 → C.EDA 22:20
DX: R45.1 Restlessness and agitation (principal); F12.10 Cannabis abuse, uncomplicated; M54.2 Cervicalgia; F17.200 Nicotine dependence, unspecified, uncomplicated

== ENCOUNTER 2017-11-26 18:39 | Emergency (ER) | payer OTHER ==
[~2017-11-26] VITALS: Ht 165.1 cm; Wt 72.3 kg
[~2017-11-26 18:39] MED LIST changes: +ASPEC81 PO; -BUPR1SUB23 PO; -FRS/40 PO; +KPP/1000 PO; +RTL20 PO; +VENL150T33 PO
[2017-11-26 18:42] VITALS: Ht 165.1 cm; Wt 72.3 kg
[2017-11-26] MEDS ORDERED: SODIUM CHLORIDE 0.9% 1000ML 1,000 ML IV STA (19:00)
[2017-11-26] MEDS ORDERED: VENL75TA4 PO (19:12)
[2017-11-26] MEDS ORDERED: QUET1TAB13 PO (19:12)
[2017-11-26] MEDS ORDERED: QUET1TAB10 PO (19:12)
[2017-11-26] MEDS ORDERED: GABA-113 PO (19:12)
[2017-11-26] MEDS ORDERED: ONDA4TAB46 PO (19:12)
--- NOTE | 2017-11-26 19:38 | EMERGENCY ROOM VISIT NOTE ---
History Report prepared by Domonique: Annia Bond Under the Supervision of: Dr. Chad Rao M.D. First contact with patient: 18:45 Chief Complaint: FEVER Stated Complaint: FEVER,THROWING UP,HX OF SEPSIS,ENDOCARDITIS,COUGH History of Present Illness The patient is a 27 year old female who presents to the Emergency Room with complaints of worsening URI symptoms and vomiting starting 2 days ago. The patient states that she started vomiting today. She reports that it is yellow in color. She denies her vomiting black or blood being in her vomit. She reports 4-6 episodes today. The patient complains of a cough, lightheadedness, and lower back pain. She reports subjective fevers and chills, she never took her temperature with thermometer. The patient notes that she had burning with urination a week ago, but it has passed. The patient denies hemoptysis, chance of , use of alcohol, and abdominal pain. The patient notes a history of seizures and IV drug use. She notes that she has not used heroin for 6 months. She reports that she takes Keppra for her seizures and denies missing a dose. She notes her LNMP is currently occurring. The patient notes that she smokes a pack of cigarettes a day. Source of History: patient Onset: 2 days ago Position: other (global) Quality: other (fever) Timing: worsening Associated Symptoms: + cough, + vomiting, + back pain, No abdominal pain, No urinary symptoms Note: The patient complains of lightheadedness. The patient denies her vomit being black in color and blood in her vomit. Review of Systems See HPI for pertinent positives and negatives. A total of ten systems were reviewed and were otherwise negative. Past Medical & Surgical Medical Problems: (1) ADHD (2) Anxiety (3) Bipolar 1 disorder (4) Heroin abuse (5) History of endocarditis (6) Hx of sepsis (7) Seizure disorder (8) Septic pulmonary embolism Surgical Problems: (1) H/O tricuspid valve repair (2) S/P cholecystectomy Family History FH: heart disease GRANDFATHER Stroke GRANDFATHER Social History Smoking Status: Current Every Day Smoker Alcohol Use: none Drug Use: none, heroin (past), marijuana Marital Status: in relationship Housing Status: lives with roommate Current/Historical Medications Scheduled Aspirin (Aspirin EC Low Dose), 81 MG PO DAILY Gabapentin (Neurontin), 300 MG PO TID Levetiracetam (Keppra), 1,500 MG PO BID Methylphenidate (Ritalin), 20 MG PO BID Quetiapine Fumarate (Seroquel), 200 MG PO QAM Quetiapine Fumarate (Seroquel), 400 MG PO HS Venlafaxine Hcl (Effexor), 75 MG PO DAILY Scheduled PRN Ondansetron Hcl (Zofran), 4 MG PO UD PRN for Nausea Allergies Coded Allergies: No Known Allergies (Unverified , 08/09/17) Physical Exam Vital Signs Date Time Temp Pulse Resp B/P (MAP) Pulse Ox O2 Delivery O2 Flow Rate FiO2 11/26/17 21:50 36.7 85 16 99/46 94 Room Air 11/26/17 20:36 93 18 110/73 94 Room Air 11/26/17 20:21 92 11/26/17 18:42 36.7 110 20 110/68 100 Room Air Physical Exam Physical Exam GENERAL: She is oriented to person, place, and time. She appears well- developed and well-nourished. She does not appear distressed. HENT: Exam performed. Head: Normocephalic and atraumatic. Right Ear: External ear normal. No mastoid tenderness. Left Ear: External ear normal. No mastoid tenderness. Mouth/Throat: The oropharynx is clear and moist. No trismus in the jaw. No dental abscesses or uvula swelling. No oropharyngeal exudate or tonsillar abscesses. EYES: Conjunctivae and EOM are normal. Pupils are equal, round, and reactive to light. Right eye exhibits no discharge. Left eye exhibits no discharge. No scleral icterus. NECK: Normal range of motion. Neck supple. No JVD present. No spinous process tenderness present. No carotid bruit present. No rigidity. No tracheal deviation and normal range of motion present. No Brudzinski's sign and no Kernig 's sign noted. CV: Normal rate, regular rhythm, normal heart sounds and intact distal pulses. There is no peripheral edema. Palpable radial pulses bue. PULM/CHEST: Effort normal and breath sounds normal. No respiratory distress. No stridor. She has scant expiratory wheezes bilaterally. She has no rales. Chest Wall: She exhibits no tenderness. ABD: The abdomen is soft. Bowel sounds are normal. She has no distension. No mass is present. There is no tenderness. There is no rebound, no guarding, no Abarca's sign and no tenderness at McBurney's point. Rovsig negative MUSC/SKEL: Normal range of motion. There is no peripheral edema, tenderness or deformity. LYMPH: No cervical adenopathy. NEURO: She is alert and oriented to person, place, and time. She has normal strength. No cranial nerve deficit or sensory deficit. Coordination and gait normal. GCS eye subscore is 4. GCS verbal subscore is 5. GCS motor subscore is 6. Cerebellar tests wnl. SKIN: Skin is warm and dry. She is not diaphoretic. PSYCH: She has a normal mood and affect. She behavior is normal. Judgment and thought content normal. Medical Decision & Procedures ER Provider Diagnostic Interpretation: Radiology results as stated below per my review and radiologist interpretation: CHEST 2 VIEWS ROUTINE CLINICAL HISTORY: Cough. Fever. COMPARISON STUDY: Chest radiograph August 09, 2017. FINDINGS: There are median sternotomy wires. No pneumothorax or pleural effusion is noted. Cholecystectomy clips are noted. Pulmonary vascularity is normal. No consolidation is identified. The appearance of the chest is unchanged. Linear bilateral opacities reflect atelectasis or scarring. A compression deformity at the thoracolumbar junction is unchanged. IMPRESSION: No acute cardiopulmonary findings. Electronically signed by: Adryan Ascencio M.D. 11/26/2017 9:35 PM Dictated Date/Time: 11/26/2017 9:[address] OF THE HEAD WITHOUT CONTRAST CLINICAL HISTORY: Seizure. COMPARISON STUDY: Head CT May 28, 2016. CT DOSE: 734.05 mGy.cm TECHNIQUE: Helical axial images of the head were obtained without IV contrast. Automated exposure control was utilized for the study. A dose lowering technique was utilized adhering to the principles of ALARA. FINDINGS: No acute intracranial hemorrhage, midline shift or mass effect is present. Ventricular system is normal. Fullness at the level of the foramen magnum is noted. There are no findings to suggest acute dural sinus thrombosis or acute territorial infarct. Exam is mildly compromised by motion artifact. There is no calvarial fracture. Visualized portions of the sinuses and the mastoid air cells are clear. IMPRESSION: No acute intracranial findings. Electronically signed by: Adryan Ascencio M.D. 11/26/2017 9:13 PM Dictated Date/Time: 11/26/2017 9:07 PM Laboratory Results 11/26/17 20:27 Red Blood Count 4.40, Mean Corpuscular Volume 94.8, Mean Corpuscular Hemoglobin 33.0, Mean Corpuscular Hemoglobin Concent 34.8, Mean Platelet Volume 10.5, Neutrophils (%) (Auto) 46.4, Lymphocytes (%) (Auto) 41.9, Monocytes (%) (Auto) 10.9, Eosinophils (%) (Auto) 0.4, Basophils (%) (Auto) 0.3, Neutrophils # (Auto ) 3.45, Lymphocytes # (Auto) 3.11, Monocytes # (Auto) 0.81, Eosinophils # (Auto ) 0.03, Basophils # (Auto) 0.02 11/26/17 20:27 Test 11/26/17 19:10 11/26/17 19:20 11/26/17 20:10 11/26/17 20:27 Urine Color YELLOW Urine Appearance TURBID (CLEAR) Urine pH 8.5 (4.5-7.5) Urine Specific [place] 1.013 (1.000-1.030) Urine Protein NEG (NEG) Urine Glucose (UA) NEG (NEG) Urine Ketones NEG (NEG) Urine Occult Blood 1+ (NEG) Urine Nitrite NEG (NEG) Urine Bilirubin NEG (NEG) Urine Urobilinogen NEG (NEG) Urine Leukocyte Esterase NEG (NEG) Urine WBC (Auto) 1-5 /hpf (0-5) Urine RBC (Auto) 10-30 /hpf (0-4) Urine Hyaline Casts (Auto) 1-5 /lpf (0-5) Urine Epithelial Cells (Auto) 20-30 /lpf (0-5) Urine Bacteria (Auto) NEG (NEG) Urine Test NEG (NEG) Influenza Type A Antigen Neg for Influ A (NEG) Influenza Type B Antigen Neg for Influ B (NEG) Lactic Acid Level 0.8 mmol/L (0.4-2.0) White Blood Count 7.43 K/uL (4.8-10.8) Red Blood Count 4.40 M/uL (4.2-5.4) Hemoglobin 14.5 g/dL (12.0-16.0) Hematocrit 41.7 % (37-47) Mean Corpuscular Volume 94.8 fL (80-100) Mean Corpuscular Hemoglobin 33.0 pg (25-34) Mean Corpuscular Hemoglobin Concent 34.8 g/dl (32-36) Platelet Count 229 K/uL (130-400) Mean Platelet Volume 10.5 fL (7.4-10.4) Neutrophils (%) (Auto) 46.4 % Lymphocytes (%) (Auto) 41.9 % Monocytes (%) (Auto) 10.9 % Eosinophils (%) (Auto) 0.4 % Basophils (%) (Auto) 0.3 % Neutrophils # (Auto) 3.45 K/uL (1.4-6.5) Lymphocytes # (Auto) 3.11 K/uL (1.2-3.4) Monocytes # (Auto) 0.81 K/uL (0.11-0.59) Eosinophils # (Auto) 0.03 K/uL (0-0.5) Basophils # (Auto) 0.02 K/uL (0-0.2) RDW Standard Deviation 44.4 fL (36.4-46.3) RDW Coefficient of Variation 12.9 % (11.5-14.5) Immature Granulocyte % (Auto) 0.1 % Immature Granulocyte # (Auto) 0.01 K/uL (0.00-0.02) Anion Gap 10.0 mmol/L (3-11) Est Creatinine Clear Calc Drug Dose 123.1 ml/min Estimated GFR () 139.2 Estimated GFR (Non- 120.1 BUN/Creatinine Ratio 16.4 (10-20) Calcium Level 9.5 mg/dl (8.5-10.1) Total Bilirubin 0.5 mg/dl (0.2-1) Aspartate Amino Transf (AST/SGOT) 25 U/L (15-37) Alanine Aminotransferase (ALT/SGPT) 24 U/L (12-78) Alkaline Phosphatase 77 U/L (45-117) Total Protein 7.6 gm/dl (6.4-8.2) Albumin 4.1 gm/dl (3.4-5.0) Globulin 3.5 gm/dl (2.5-4.0) Albumin/Globulin Ratio 1.2 (0.9-2) Lipase 82 U/L (73-393) Laboratory results reviewed by me Medications Administered Medications (Trade) Dose Ordered Sig/Varun Route Start Time Stop Time Status Last Admin Dose Admin Sodium Chloride 1,000 ml @ 999 mls/hr Q1H1M STAT IV 11/26/17 19:00 11/26/17 20:00 DC 11/26/17 19:00 999 MLS/HR Levetiracetam 1500 mg/Dextrose 115 ml @ 440 mls/hr ONE ONCE IV 11/26/17 20:00 11/26/17 20:15 DC 11/26/17 20:31 440 MLS/HR ECG Per My Interpretation Indication: vomiting Rate (beats per minute): 94 Rhythm: sinus rhythm Findings: other (UT, QRS, and QT-c are within normal limits, no ST depression or elevations, baseline wanders) ED Course 1858: The patient was evaluated in room B10. A complete history and physical exam was performed. 1899: Ordered NSS 1000 ml @ 999 mls/hr IV. 1948: I was just called by nursing. During the nursing evaluation, the patient had a 30 second seizure. The patient is currently alert, stable, and oriented. The patient and her family member now state that the patient has been too sick to take her Keppra 1500 mg PO. They report her last dose was yesterday morning and that she missed two doses in total. 1999: Ordered Levetiracetam 1500 mg/Dextrose 115 ml @ 440 mls/hr IV. 2151: I reevaluated the patient and repeat vital signs are stable. The patient' s labs are normal, including CBC, lactic acid, urine , and influenza swab. Urinalysis was a contaminated sample. Imaging was within normal limits. Repeat physical exam revealed no acute distress. Her lungs were clear bilaterally to auscultation. Repeat neurological exam was completely intact including the patient displaying no meningeal signs. Repeat abdominal exam reveals no tenderness to palpation. It is thought that the patient's seizure in the ED was due to her not taking her Keppra. She was loaded with Keppra in the emergency department. I explained that it is imperative for her to take the Keppra. She agreed she would. I offered to write her a prescription for nausea medication. She declined stating that she already has Zofran. The patient will be discharged in a normal fashion. DISCHARGE - Plan of care discussed with patient and questions answered. The patient was given both verbal and printed discharge instructions. The patient verbalized understanding and ability to comply. The patient is to seek outpatient follow up as noted in the discharge instructions. The patient verbalized understanding and ability to comply. The patient is discharged in stable condition. The patient was instructed to return for worsening symptoms. Medical Decision repeat vital signs are stable. The patient's labs are normal, including CBC, lactic acid, urine , and influenza swab. Urinalysis was a contaminated sample. Imaging was within normal limits. Repeat physical exam revealed no acute distress. Her lungs were clear bilaterally to auscultation. Repeat neurological exam was completely intact including the patient displaying no meningeal signs. Repeat abdominal exam reveals no tenderness to palpation. It is thought that the patient's seizure in the ED was due to her not taking her Keppra. She was loaded with Keppra in the emergency department. I explained that it is imperative for her to take the Keppra. She agreed she would. I offered to write her a prescription for nausea medication. She declined stating that she already has Zofran. The patient will be discharged in a normal fashion. DISCHARGE - Plan of care discussed with patient and questions answered. The patient was given both verbal and printed discharge instructions. The patient verbalized understanding and ability to comply. The patient is to seek outpatient follow up as noted in the discharge instructions. The patient verbalized understanding and ability to comply. The patient is discharged in stable condition. The patient was instructed to return for worsening symptoms. [place] Drug Monitoring Program Drug Monitoring Findings: 1858: The patient was evaluated in room B10. A complete history and physical exam was performed. 1899: Ordered NSS 1000 ml @ 999 mls/hr IV. 1948: I was just called by nursing. During the nursing evaluation, the patient had a 30 second seizure. The patient is currently alert, stable, and oriented. The patient and her family member now state that the patient has been too sick to take her Keppra 1500 mg PO. They report her last dose was yesterday morning and that she missed two doses in total. 1999: Ordered Levetiracetam 1500 mg/Dextrose 115 ml @ 440 mls/hr IV. 2151: I reevaluated the patient and repeat vital signs are stable. The patient' s labs are normal, including CBC, lactic acid, urine , and influenza swab. Urinalysis was a contaminated sample. Imaging was within normal limits. Repeat physical exam revealed no acute distress. Her lungs were clear bilaterally to auscultation. Repeat neurological exam was completely intact including the patient displaying no meningeal signs. Repeat abdominal exam reveals no tenderness to palpation. It is thought that the patient's seizure in the ED was due to her not taking her Keppra. She was loaded with Keppra in the emergency department. I explained that it is imperative for her to take the Keppra. She agreed she would. I offered to write her a prescription for nausea medication. She declined stating that she already has Zofran. The patient will be discharged in a normal fashion. DISCHARGE - Plan of care discussed with patient and questions answered. The patient was given both verbal and printed discharge instructions. The patient verbalized understanding and ability to comply. The patient is to seek outpatient follow up as noted in the discharge instructions. The patient verbalized understanding and ability to comply. The patient is discharged in stable condition. The patient was instructed to return for worsening symptoms. Medication Reconcilliation Current Medication List: was personally reviewed by me Blood Pressure Screening Patient's blood pressure: Normal blood pressure Blood pressure disposition: Did not require urgent referral Impression Primary Impression: URI (upper respiratory infection) Additional Impression: Seizure disorder Scribe Attestation The scribe's documentation has been prepared under my direction and personally reviewed by me in its entirety. I confirm that the note above accurately reflects all work, treatment, procedures, and medical decision making performed by me. The chart was completed utilizing [employer] Speech voice recognition software. Grammatical errors, random word insertions, pronoun errors, and incomplete sentences are an occasional consequence of this system due to software limitations, ambient noise, and hardware issues. Any formal questions or concerns about the content, text, or information contained within the body of this dictation should be directly addressed to the physician for clarification. Departure Information Dispostion Home / Self-Care Referrals Marianne Rodriguez D.O. (PCP) Forms HOME CARE DOCUMENTATION FORM, IMPORTANT VISIT INFORMATION Patient Instructions My [facility] Problem Qualifiers Primary Impression: URI (upper respiratory infection) URI type: unspecified viral URI Qualified Codes: J06.9 - Acute upper respiratory infection, unspecified
[2017-11-26 19:56] LABS: INFLUENZA B ANTIGEN Neg for Influ B (NEG)
[2017-11-26] MEDS ORDERED: LEVETIRACETAM IV 1,500 MG in DEXTROSE 5% 100ML 100 ML IV ONE (20:00)
[2017-11-26 20:34] LABS: BASO % 0.3 %; BASO ABS # 0.02 K/uL (0-0.2); EOS % 0.4 %; EOS ABS # 0.03 K/uL (0-0.5); HEMATOCRIT 41.7 % (37-47); HEMOGLOBIN 14.5 g/dL (12.0-16.0); IG# 0.01 K/uL (0.00-0.02); LYMPH % 41.9 %; LYMPH ABS # 3.11 K/uL (1.2-3.4); MEAN CELL VOLUME 94.8 fL (80-100); MEAN CORPUSCULAR HGB CONC 34.8 g/dl (32-36); MEAN PLATELET VOLUME 10.5 fL (7.4-10.4); MONO % 10.9 %; MONO ABS # 0.81 K/uL (0.11-0.59); NEUT % 46.4 %; NEUT ABS # 3.45 K/uL (1.4-6.5); PLATELET COUNT 229 K/uL (130-400); RED CELL DISTRIBUTION WIDTH CV 12.9 % (11.5-14.5); RED CELL DISTRIBUTION WIDTH SD 44.4 fL (36.4-46.3); WHITE BLOOD COUNT 7.43 K/uL (4.8-10.8)
[2017-11-26 21:06] LABS: ALBUMIN 4.1 gm/dl (3.4-5.0); CALCIUM 9.5 mg/dl (8.5-10.1); CREATININE 0.69 mg/dl (0.60-1.20); POTASSIUM 3.6 mmol/L (3.5-5.1); TOTAL PROTEIN 7.6 gm/dl (6.4-8.2)
--- NOTE | 2017-11-26 21:14 | DIAGNOSTIC IMAGING REPORT ---
CT OF THE HEAD WITHOUT CONTRAST CLINICAL HISTORY: Seizure. COMPARISON STUDY: Head CT May 28, 2016. CT DOSE: 734.05 mGy.cm TECHNIQUE: Helical axial images of the head were obtained without IV contrast. Automated exposure control was utilized for the study. A dose lowering technique was utilized adhering to the principles of ALARA. FINDINGS: No acute intracranial hemorrhage, midline shift or mass effect is present. Ventricular system is normal. Fullness at the level of the foramen magnum is noted. There are no findings to suggest acute dural sinus thrombosis or acute territorial infarct. Exam is mildly compromised by motion artifact. There is no calvarial fracture. Visualized portions of the sinuses and the mastoid air cells are clear. IMPRESSION: No acute intracranial findings. Electronically signed by: Adryan Ascencio M.D. 11/26/2017 9:13 PM Dictated Date/Time: 11/26/2017 9:07 PM
--- NOTE | 2017-11-26 21:36 | DIAGNOSTIC IMAGING REPORT ---
CHEST 2 VIEWS ROUTINE CLINICAL HISTORY: Cough. Fever. COMPARISON STUDY: Chest radiograph August 09, 2017. FINDINGS: There are median sternotomy wires. No pneumothorax or pleural effusion is noted. Cholecystectomy clips are noted. Pulmonary vascularity is normal. No consolidation is identified. The appearance of the chest is unchanged. Linear bilateral opacities reflect atelectasis or scarring. A compression deformity at the thoracolumbar junction is unchanged. IMPRESSION: No acute cardiopulmonary findings. Electronically signed by: Adryan Ascencio M.D. 11/26/2017 9:35 PM Dictated Date/Time: 11/26/2017 9:34 PM
[2017-11-26 21:50] VITALS: BP 99/46; PULSE 85; TEMP 36.7; O2SAT 94
== END 2017-11-26 22:03 | disposition home or self-care (01) ==
LOC: C.EDB 18:40
DX: J06.9 Acute upper respiratory infection, unspecified (principal); G40.909 Epilepsy, unspecified, not intractable, without status epilepticus; F17.210 Nicotine dependence, cigarettes, uncomplicated; F90.9 Attention-deficit hyperactivity disorder, unspecified type; F31.9 Bipolar disorder, unspecified; F41.9 Anxiety disorder, unspecified; F12.90 Cannabis use, unspecified, uncomplicated; Z79.82 Long term (current) use of aspirin; Z82.49 Family history of ischemic heart disease and other diseases of the circulatory system; Z82.3 Family history of stroke

== ENCOUNTER 2018-01-05 21:03 | Emergency (ER) | payer OTHER ==
[~2018-01-05] VITALS: Ht 165.1 cm; Wt 71.9 kg
[~2018-01-05 21:03] MED LIST changes: +GABA-113 PO; +ONDA4TAB46 PO; +QUET1TAB10 PO; +QUET1TAB13 PO; -QUET1TAB34 PO; -VENL150T33 PO; +VENL75TA4 PO
[2018-01-05 21:09] VITALS: TEMP 36.8; Ht 165.1 cm; Wt 71.9 kg
[2018-01-05] MEDS ORDERED: KETOROLAC TROMETHAMINE 30 MG/ML VIAL IV STA (21:18)
[2018-01-05] MEDS ORDERED: SULFAMETHOXAZOLE/TRIMETHOPRIM DS 800/160MG TAB PO STA (21:18)
[2018-01-05] MEDS ORDERED: CEFTRIAXONE SOD INJ 1 GM ADDVIAL IV STA (21:18)
[2018-01-05 21:39] VITALS: O2SAT 97
--- NOTE | 2018-01-05 21:49 | DIAGNOSTIC IMAGING REPORT ---
CHEST ONE VIEW PORTABLE CLINICAL HISTORY: Atypical chest pain COMPARISON STUDY: 11/26/2017 FINDINGS: There are postsurgical changes of a midline sternotomy, and tricuspid valvular replacement.. The cardiac and mediastinal contours remain stable. There is no focal pulmonary consolidation. There is no failure. There are no pleural effusions.[ IMPRESSION: No active disease in the chest. Electronically signed by: Will Judd M.D. 01/05/2018 9:48 PM Dictated Date/Time: 01/05/2018 9:47 PM
[2018-01-05] MEDS ORDERED: NRN/600 PO (21:53)
[2018-01-05] MEDS ORDERED: DOXE100C4 PO (21:58)
[2018-01-05 22:21] LABS: BASO % 0.5 %; BASO ABS # 0.03 K/uL (0-0.2); EOS % 1.1 %; EOS ABS # 0.07 K/uL (0-0.5); HEMATOCRIT 46.5 % (37-47); IG# 0.01 K/uL (0.00-0.02); LYMPH % 44.6 %; LYMPH ABS # 2.88 K/uL (1.2-3.4); MEAN CELL VOLUME 95.5 fL (80-100); MEAN CORPUSCULAR HEMOGLOBIN 32.9 pg (25-34); MEAN CORPUSCULAR HGB CONC 34.4 g/dl (32-36); MEAN PLATELET VOLUME 10.6 fL (7.4-10.4); MONO % 8.2 %; MONO ABS # 0.53 K/uL (0.11-0.59); NEUT % 45.4 %; NEUT ABS # 2.94 K/uL (1.4-6.5); PLATELET COUNT 205 K/uL (130-400); RED CELL DISTRIBUTION WIDTH CV 13.1 % (11.5-14.5); RED CELL DISTRIBUTION WIDTH SD 45.7 fL (36.4-46.3); WHITE BLOOD COUNT 6.46 K/uL (4.8-10.8)
[2018-01-05 22:38] LABS: ALBUMIN 4.4 gm/dl (3.4-5.0); ALT/SGPT 15 U/L (12-78); BLOOD UREA NITROGEN 14 mg/dl (7-18); CALCIUM 9.4 mg/dl (8.5-10.1); CARBON DIOXIDE 26 mmol/L (21-32); CREATININE 0.81 mg/dl (0.60-1.20); GLUCOSE 89 mg/dl (70-99); LIPASE 118 U/L (73-393); POTASSIUM 3.5 mmol/L (3.5-5.1); SODIUM 138 mmol/L (136-145)
[2018-01-05 22:43] LABS: ALKALINE PHOSPHATASE 85 U/L (45-117); AST/SGOT 15 U/L (15-37); CKMB < 0.5 ng/ml (0.5-3.6)
--- NOTE | 2018-01-05 22:53 | EMERGENCY ROOM VISIT NOTE ---
History Report prepared by Domonique: Brodie Gilliam Under the Supervision of: Dr. Fer Reddy M.D. First contact with patient: 21:12 Chief Complaint: ARM PAIN Stated Complaint: LEFT ARM PAIN, POSSIBLE BLOOD CLOT History of Present Illness The patient is a 27 year old female who presents to the Emergency Room with complaints of constant left arm pain beginning today. The patient states it felt like she pulled a muscle in her left upper arm. She report she was at work today and developed a bruise and pain that radiated through her arm. She states movement increases her discomfort, and she just started a new job. The patient notes her neck also felt tight and became numb. She states everything seems very bright as well. The patient reports she just got out rehab two days, and she has not used any drugs. She also denies chest pain, shortness of breath, the chance of being , and the chance of retaining a tampon. The patient notes her LNMP was 2.5 weeks ago. She states she also has a history of endocarditis, blood clots, and open heart surgery. Source of History: patient Onset: today Position: arm (left) Timing: constant Modifying Factors (Worsening): movement Associated Symptoms: + neck pain, + numbness (neck), No chest pain, No SOB Note: Associated symptoms: everything appears very bright Review of Systems See HPI for pertinent positives & negatives. A total of 10 systems reviewed and were otherwise negative. Past Medical & Surgical Medical Problems: (1) ADHD (2) Anxiety (3) Bipolar 1 disorder (4) Heroin abuse (5) History of endocarditis (6) Hx of sepsis (7) Seizure disorder (8) Septic pulmonary embolism Surgical Problems: (1) H/O tricuspid valve repair (2) S/P cholecystectomy Family History FH: heart disease GRANDFATHER Stroke GRANDFATHER Social History Smoking Status: Current Every Day Smoker Alcohol Use: none Drug Use: none Marital Status: in relationship Housing Status: lives with roommate Occupation Status: employed Current/Historical Medications Scheduled Aspirin (Aspirin EC Low Dose), 81 MG PO DAILY Cephalexin Monohydrate (Keflex), 500 MG PO QID Doxepin Hcl (Doxepin), 100 MG PO HS Gabapentin (Neurontin), 600 MG PO TID Levetiracetam (Keppra), 1,500 MG PO BID Quetiapine Fumarate (Seroquel), 200 MG PO QAM Quetiapine Fumarate (Seroquel), 400 MG PO HS Sulfa/Trimethoprim (Bactrim Ds 800MG/160MG), 1 TAB PO BID Allergies Coded Allergies: No Known Allergies (Unverified , 08/09/17) Physical Exam Vital Signs Date Time Temp Pulse Resp B/P (MAP) Pulse Ox O2 Delivery O2 Flow Rate FiO2 01/05/18 23:20 78 16 107/68 98 Room Air 01/05/18 21:42 105 01/05/18 21:39 97 Room Air 01/05/18 21:39 97 Room Air 01/05/18 21:09 36.8 119 20 136/85 98 Room Air Physical Exam GENERAL: Awake, alert, well-appearing, in no acute distress HENT: Normocephalic, atraumatic. Oropharynx unremarkable. EYES: Normal conjunctiva. Sclera non-icteric. NECK: Supple. No nuchal rigidity. FROM. No JVD. RESPIRATORY: Clear to auscultation. CARDIAC: Regular rate, normal rhythm. Extremities warm and well perfused. Pulses equal. ABDOMEN: Soft, non-distended. No tenderness to palpation. No rebound or guarding. No masses. RECTAL: Deferred. MUSCULOSKELETAL: Chest examination reveals no tenderness. The back is symmetrical on inspection without obvious abnormality. There is no CVA tenderness to palpation. No joint edema. Bruise to the left arm that is running up the arm about 2in x 2in. LOWER EXTREMITIES: Calves are equal size bilaterally and non-tender. No edema. No discoloration. NEURO: Normal sensorium. No sensory or motor deficits noted. SKIN: No rash or jaundice noted. Medical Decision & Procedures ER Provider Diagnostic Interpretation: Radiology results as stated below per my review and radiologist interpretation: CHEST ONE VIEW PORTABLE CLINICAL HISTORY: Atypical chest pain COMPARISON STUDY: 11/26/2017 FINDINGS: There are postsurgical changes of a midline sternotomy, and tricuspid valvular replacement.. The cardiac and mediastinal contours remain stable. There is no focal pulmonary consolidation. There is no failure. There are no pleural effusions. IMPRESSION: No active disease in the chest. Electronically signed by: Will Judd M.D. 01/05/2018 9:48 PM Dictated Date/Time: 01/05/2018 9:47 PM US VENOUS LEFT UPPER EXTREMITY: No DVT demonstrated. Radiologist: Clint Crystal MD Study ready at 2312 and initial results transmitted at 2318. Laboratory Results 01/05/18 22:05 Red Blood Count 4.87, Mean Corpuscular Volume 95.5, Mean Corpuscular Hemoglobin 32.9, Mean Corpuscular Hemoglobin Concent 34.4, Mean Platelet Volume 10.6, Neutrophils (%) (Auto) 45.4, Lymphocytes (%) (Auto) 44.6, Monocytes (%) (Auto) 8.2, Eosinophils (%) (Auto) 1.1, Basophils (%) (Auto) 0.5, Neutrophils # (Auto) 2.94, Lymphocytes # (Auto) 2.88, Monocytes # (Auto) 0.53, Eosinophils # (Auto) 0.07, Basophils # (Auto) 0.03 01/05/18 22:05 Test 01/05/18 22:05 White Blood Count 6.46 K/uL (4.8-10.8) Red Blood Count 4.87 M/uL (4.2-5.4) Hemoglobin 16.0 g/dL (12.0-16.0) Hematocrit 46.5 % (37-47) Mean Corpuscular Volume 95.5 fL (80-100) Mean Corpuscular Hemoglobin 32.9 pg (25-34) Mean Corpuscular Hemoglobin Concent 34.4 g/dl (32-36) Platelet Count 205 K/uL (130-400) Mean Platelet Volume 10.6 fL (7.4-10.4) Neutrophils (%) (Auto) 45.4 % Lymphocytes (%) (Auto) 44.6 % Monocytes (%) (Auto) 8.2 % Eosinophils (%) (Auto) 1.1 % Basophils (%) (Auto) 0.5 % Neutrophils # (Auto) 2.94 K/uL (1.4-6.5) Lymphocytes # (Auto) 2.88 K/uL (1.2-3.4) Monocytes # (Auto) 0.53 K/uL (0.11-0.59) Eosinophils # (Auto) 0.07 K/uL (0-0.5) Basophils # (Auto) 0.03 K/uL (0-0.2) RDW Standard Deviation 45.7 fL (36.4-46.3) RDW Coefficient of Variation 13.1 % (11.5-14.5) Immature Granulocyte % (Auto) 0.2 % Immature Granulocyte # (Auto) 0.01 K/uL (0.00-0.02) Anion Gap 8.0 mmol/L (3-11) Est Creatinine Clear Calc Drug Dose 104.6 ml/min Estimated GFR () 116.2 Estimated GFR (Non- 100.2 BUN/Creatinine Ratio 17.4 (10-20) Calcium Level 9.4 mg/dl (8.5-10.1) Total Bilirubin 0.4 mg/dl (0.2-1) Direct Bilirubin 0.1 mg/dl (0-0.2) Aspartate Amino Transf (AST/SGOT) 15 U/L (15-37) Alanine Aminotransferase (ALT/SGPT) 15 U/L (12-78) Alkaline Phosphatase 85 U/L (45-117) Total Creatine Kinase 87 U/L (26-192) Creatine Kinase MB < 0.5 ng/ml (0.5-3.6) Creatine Kinase MB Ratio (0-3.0) Troponin I < 0.015 ng/ml (0-0.045) Total Protein 8.0 gm/dl (6.4-8.2) Albumin 4.4 gm/dl (3.4-5.0) Lipase 118 U/L (73-393) Labs reviewed by ED physician. 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 No ST elevation or depression) ED Course 2112: Past medical records reviewed. The patient was evaluated in room B04B. A complete history and physical examination was performed. 2117: Ordered Ketorolac Tromethamine 30mg IV, Trimethoprim/Sulfamethoxazole 1 tab PO, Rocephin Inj 1gm IV 2327: Upon reexamination the patient is resting comfortably. I discussed results and treatment plan with the patient. She verbalizes agreement and understanding. The patient is ready for discharge. Medical Decision Differential diagnosis: Etiologies such as cellulitis, abscess, MRSA infection, DVT, necrotizing fasciitis, dermatitis, drug eruption, as well as others were entertained. This is a 27-year-old female who presents the emergency department complaining of left arm contusion. The patient has a history of IV drug abuse along with endocarditis. She is concerned that this is a DVT. For this reason the patient was sent for an ultrasound of the left upper extremity. She was started on Rocephin and Bactrim however she does not have an elevation in her white blood cell count. I suspect that this is a contusion at this point and recommended follow-up ultrasound in 1 week if the patient is continuing to have pain. She will be continued on Keflex and Bactrim at home. Patient and significant other were in agreement with the treatment plan. Medication Reconcilliation Current Medication List: was personally reviewed by me Blood Pressure Screening Patient's blood pressure: Normal blood pressure Blood pressure disposition: Did not require urgent referral Impression Primary Impression: Arm pain, left Scribe Attestation The scribe's documentation has been prepared under my direction and personally reviewed by me in its entirety. I confirm that the note above accurately reflects all work, treatment, procedures, and medical decision making performed by me. Departure Information Dispostion Home / Self-Care Prescriptions Sulfa/Trimethoprim (Bactrim Ds 800MG/160MG) Tab 1 TAB PO BID for 10 Days, #20 TAB Prov: Fer Reddy MD 01/05/18 Cephalexin Monohydrate (KEFLEX) 500 Mg Cap 500 MG PO QID for 10 Days, #40 CAP Prov: Fer Reddy MD 01/05/18 Referrals Justino Ny MD Forms HOME CARE DOCUMENTATION FORM, IMPORTANT VISIT INFORMATION Patient Instructions ED Valorie [facility] Additional Instructions Follow up with Dr Ny's office Need repeat U/S in one week if continuing to have swelling/pain Take 600 mg Ibuprofen every 6 hours You have been examined and treated today on an emergency basis only. This is not a substitute for, or an effort to provide, complete comprehensive medical care. It is impossible to recognize and treat all injuries or illnesses in a single emergency department visit. It is therefore important that you follow up closely with Dr Cabrera. Call as soon as possible for an appointment. Thank you for your time and consideration. I look forward to speaking with you again soon. Please don't hesitate to call us if you have any questions.
[2018-01-05 23:20] VITALS: BP 107/68; PULSE 78; O2SAT 98
[2018-01-05] MEDS ORDERED: CEPH500C2 PO (23:33)
[2018-01-05] MEDS ORDERED: SULF800T23 PO (23:33)
--- NOTE | 2018-01-06 05:05 | DIAGNOSTIC IMAGING REPORT ---
L VENOUS DOPPLER UPR EXT UNIL CLINICAL HISTORY: 27 years-old Female presenting with Pt c/o LUE pain, left arm bruising, history of pulmonary emboli. TECHNIQUE: Real-time grayscale and color and spectral Doppler ultrasound imaging of the veins of the left upper extremity was performed. Compression and augmentation were also utilized. COMPARISON: None. FINDINGS: Left: Internal jugular vein: Patent. Subclavian vein: Patent. Axillary vein: Patent. Basilic vein: Patent. Brachial vein: Patent. Cephalic vein: Patent. Radial vein: Patent. Ulnar vein: Patent. Other: None. IMPRESSION: No evidence of deep venous thrombosis. Electronically signed by: Justino Samaniego M.D. 01/06/2018 5:04 AM Dictated Date/Time: 01/06/2018 5:02 AM
== END 2018-01-05 23:41 | disposition home or self-care (01) ==
LOC: C.EDB 21:04
DX: M79.602 Pain in left arm (principal); F90.9 Attention-deficit hyperactivity disorder, unspecified type; F41.9 Anxiety disorder, unspecified; F31.9 Bipolar disorder, unspecified; F11.10 Opioid abuse, uncomplicated; I38 Endocarditis, valve unspecified; G40.909 Epilepsy, unspecified, not intractable, without status epilepticus; Z86.711 Personal history of pulmonary embolism; Z82.49 Family history of ischemic heart disease and other diseases of the circulatory system; F17.210 Nicotine dependence, cigarettes, uncomplicated; Z79.82 Long term (current) use of aspirin; Z79.899 Other long term (current) drug therapy

== ENCOUNTER 2019-10-20 16:10 | Inpatient (IN) ==
[2019-10-20] MEDS ORDERED: SODIUM CHLORIDE 0.9% 1000ML 2,000 ML IV ONE (16:31)
[2019-10-20] MEDS ORDERED: ACETAMINOPHEN 1,000 MG/100 ML VIAL IV STA (16:31)
[2019-10-20] MEDS ORDERED: DEXAMETHASONE **PF** INJ 10 MG/ML VIAL IV ONE (16:33)
[2019-10-20] MEDS ORDERED: PIPERACILL/TAZOBAC CONSULT ACTIVE PRN (16:33)
[2019-10-20] MEDS ORDERED: VANCOMYCIN HCL 1,750 MG in SODIUM CHLORIDE 0.9% 500 ML IV ONE (16:33)
[2019-10-20] MEDS ORDERED: PIPERACILLIN/TAZOBACTAM 4.5 GM/120 ML BAG IV ONE (16:33)
[2019-10-20] MEDS ORDERED: VANCOMYCIN CONSULT ACTIVE PRN (16:33)
[2019-10-20 17:14] LABS: Basophils # (auto) 0.01 K/uL (0-0.2); Basophils % (auto) 0.1 %; Hemoglobin 13.6 g/dL (12.0-16.0); Immature Granulocytes # (auto) 0.07 K/uL (0.00-0.02); Immature Granulocytes % (auto) 0.7 %; Lymphocytes # (auto) 0.27 K/uL (1.2-3.4); Lymphocytes % (auto) 2.7 %; Mean Corpuscular Hemoglobin 31.6 pg (25-34); Mean Corpuscular Hgb Conc 33.2 g/dL (32-36); Mean Corpuscular Volume 95.1 fL (80-100); Mean Platelet Volume 10.5 fL (7.4-10.4); Monocytes # (auto) 0.96 K/uL (0.11-0.59); Monocytes % (auto) 9.5 %; Neutrophils # (auto) 8.76 K/uL (1.4-6.5); Platelet Count 159 K/uL (130-400); RDW Coefficient of Variation 13.1 % (11.5-14.5); RDW Standard Deviation 45.5 fL (36.4-46.3); Red Blood Count 4.31 M/uL (4.2-5.4); White Blood Count 10.07 K/uL (4.8-10.8)
[2019-10-20 17:20] LABS: Base Excess VBG 1.4 mEq/L; Oxygen Saturation VBG 96.8 %; pH VBG 7.52 (7.36-7.41)
[2019-10-20 17:30] LABS: Alanine Aminotransferase 17 U/L (12-78); Albumin Level 3.7 gm/dl (3.4-5.0); Aspartate Aminotransferase 11 U/L (15-37); BUN Creatinine Ratio 23.9 (10-20); Blood Urea Nitrogen 14 mg/dl (7-18); Calcium 8.9 mg/dl (8.5-10.1); Carbon Dioxide 25 mmol/L (21-32); Chloride 105 mmol/L (98-107); Est GFR (African American) 144.6; Est GFR (Non-African American) 124.7; Glucose 102 mg/dl (70-99); Magnesium 1.5 mg/dl (1.8-2.4); Potassium 3.4 mmol/L (3.5-5.1); Sodium 137 mmol/L (136-145)
[2019-10-20 17:33] LABS: INR 1.2 (0.9-1.1); Partial Thromboplastin Time 27.7 Seconds (21.0-31.0); Prothrombin Time 12.4 Seconds (9.0-12.0)
--- NOTE | 2019-10-20 17:35 | XRay Report ---
XR chest 1V portable CLINICAL HISTORY: 29 years-old Female presenting with SEPSIS. TECHNIQUE: Portable upright AP view of the chest was obtained. COMPARISON: 07/30/2019. FINDINGS: Median sternotomy wires and tricuspid annuloplasty unchanged. Mild prominence of the main pulmonary a rtery as on prior exam. Cardiac silhouette normal in size. No focal opacity. No large effusion or pne umothorax. Osseous structures normal. Cholecystectomy clips noted. IMPRESSION: 1. No acute cardiopulmonary disease. ACT 112: Negative or not required by law. Electronically signed by: Justino Samaniego M.D. 10/20/2019 5:34 PM
[2019-10-20 17:38] LABS: Pregnancy Test, Serum Negative (Negative)
[2019-10-20 17:41] LABS: Alkaline Phosphatase 91 U/L (45-117); Bilirubin,Total 1.6 mg/dl (0.2-1); Globulin 3.7 gm/dl (2.5-4.0); Phosphorus 1.6 mg/dl (2.5-4.9); Thyroid Stimulating Hormone 0.361 uIu/ml (0.300-4.500); Total Protein 7.4 gm/dl (6.4-8.2); Troponin I < 0.015 ng/ml (0-0.045)
[2019-10-20] MEDS ORDERED: OPTIRAY 320 125ml IV PRN (17:55)
--- NOTE | 2019-10-20 18:10 | CT Scan Report ---
CT angio chest PE protocol CLINICAL HISTORY: 29 years-old Female presenting with right-sided mandibular pain and swelling, chest pain. TECHNIQUE: Multidetector CT angiography of the chest was performed after administration of intravenou s contrast. 3-D volumetric and/or maximum intensity projection (MIP) images were subsequently reconst ructed for review. IV contrast: 119 mL of Optiray 320. One or more dose lowering techniques were used consistent with the principles of ALARA (as low as reasonably achievable), including automatic expos ure control, mA or kV adjustment to individual patient size, and/or use of iterative reconstruction. COMPARISON: 08/07/2017. CT DOSE (mGy.cm): The estimated cumulative dose is 1151.75 mGy.cm. 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 Pulmonary vasculature: The study is adequate for assessment of the pulmonary vascular tree. No filling defect within the pul monary arteries to suggest embolus. Main pulmonary artery is not enlarged. No flattening of the inter ventricular septum. No intracardiac filling defect. No reflux of contrast into the hepatic veins. Remaining chest: Soft tissues: Normal thyroid and thoracic inlet. No axillary, supraclavicular, mediastinal, or hilar lymphadenopathy. Normal aorta. Postsurgical changes of tricuspid valve annuloplasty. Normal heart siz e. No pericardial or pleural effusion. Upper abdomen normal. Lungs and airways: No pneumothorax. Central airways patent. Pulmonary arteries are not significantly enlarged relative to adjacent bronchi. No interlobular septal thickening. Focal apparent nodule at th e right apex unchanged from prior and likely pleural parenchymal scarring. Scattered additional sites of scarring bilaterally. Musculoskeletal: Well-healed median sternotomy. IMPRESSION: 1. No evidence of pulmonary embolus. No acute intrathoracic pathology. 2. Prior tricuspid valve annuloplasty. 3. Scattered areas of parenchymal scarring in the lungs. ACT 112: Negative or not required by law. Electronically signed by: Justino Samaniego M.D. 10/20/2019 6:08 PM
--- NOTE | 2019-10-20 18:17 | CT Scan Report ---
CT soft tissue neck w con CLINICAL HISTORY: 29 years-old Female presenting with left jaw/neck swelling, Trismus ?Liam's angin a. TECHNIQUE: Multidetector CT of the neck was performed after the administration of intravenous contras t. IV contrast: 119 mL of Optiray 320. One or more dose lowering techniques were used consistent with the principles of ALARA (as low as reasonably achievable), including automatic exposure control, mA or kV adjustment to individual patient size, and/or use of iterative reconstruction. COMPARISON: None. CT DOSE (mGy.cm): The estimated cumulative dose is 1151.75. FINDINGS: Ledge Man topogram: Unremarkable. Periapical lucency at the left mandibular second molar. There is cortical breakthrough along the bucc al aspect. There is no gross evidence of an odontogenic abscess though there is extensive regional in flammation along the left mandible. Infiltration of the left submandibular region extending along the anterior neck with edema noted supe rficial to the pretracheal musculature. This extends to the suprasternal region but does not involve the superior mediastinum. Vasculature patent. Mild enlargement of the left submandibular gland with surrounding fluid. No ducta l dilatation. Prominent subcentimeter lymph nodes in the submandibular and jugulodigastric regions on the left. Thyroid and parotid glands normal. Nonspecific mild mucosal thickening in the right maxillary sinus. Aerated secretions also noted in th e right maxillary sinus. Limited intracranial evaluation within normal limits. Cervical spine within normal limits. Lung apices clear apart from scarring at the right apex. No soft tissue emphysema. IMPRESSION: 1. Odontogenic infection with periapical lucency/abscess at the left mandibular second molar. Extens amor phlegmonous change along the left mandible and cellulitis without convincing evidence of a defina ble odontogenic abscess at this time. 2. No evidence of superior mediastinal involvement of the inflammatory change in the neck. 3. Reactive left cervical lymph nodes. ACT 112: Negative or not required by law. Electronically signed by: Justino Samaniego M.D. 10/20/2019 6:16 PM
--- NOTE | 2019-10-20 19:36 | History & Physical Report ---
Date of Service October 20, 2019 Assessment & Plan (1) Dental infection: (2) Sepsis: -Admit to [facility] with telemetry -Patient presenting with 3 days of dental pain, seen in ED yesterday and diagnosed with dental infection and placed on clindamycin however has not had any improvement -On presentation, febrile, tachycardic; normal lactic acid, BP stable -In the ED today, CT showing odontogenic infection with periapical lucency/abscess at the left mandibular second molar. Extensive phlegmonous change along the left mandible and cellulitis without convincing evidence of a definable odontogenic abscess at this time. -No stridor, resting in bed in no acute distress -S/p Vanco and Zosyn in the ED; will continue with Unasyn for now -Follow blood cultures -Oral maxillofacial consult, case discussed with Dr. Malloy. Reports he is out of town until Monday however given that there is no definitive abscess on CT scan, no need for urgent intervention at this time. 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 Patient reports symptoms been going on for the past 3 days. Evaluated in the ED yesterday and diagnosed with dental infection. She was placed on clindamycin however has not had any improvement in her symptoms. Patient has some difficulty opening her mouth. She also reports difficulty swallowing, chest pain, and shortness of breath however at the time my exam, patient is resting in bed in no acute distress. She reports running fevers of around 101. Has had some nausea with vomiting. Denies hematemesis and coffee-ground emesis. No abdominal pain or diarrhea. Denies lightheadedness, dizziness, diaphoresis, syncopal events. No urinary symptoms. In the ED, patient is febrile at 38.5 and tachycardic in the 120s. No leukocytosis. CT neck shows odontogenic infection with periapical lucency/abscess at the left mandibular second molar. Extensive phlegmonous change along the left mandible and cellulitis without convincing evidence of a definable odontogenic abscess at this time. CTA chest negative for PE. She is also mildly hypokalemic hypomagnesemic, hypophosphatemic. She was given IV Tylenol, IV Decadron, IV Zosyn, IV Vanco, IVF. Allergies Allergy/AdvReac Type Severity Reaction Status Date / Time cephalexin [From Keflex] AdvReac Nausea Unverified 10/20/19 18:13 doxycycline AdvReac Nausea Unverified 10/20/19 18:13 sulfamethoxazole AdvReac Nausea Unverified 10/20/19 18:13 [From Bactrim] trimethoprim [From Bactrim] AdvReac Nausea Unverified 10/20/19 18:13 Home Medications Home Medications Medication Instructions Recorded Confirmed Type clindamycin HCl 300 mg PO QID 10 Days #40 cap 10/19/19 10/20/19 Rx hydroxyzine pamoate 50 mg PO TID PRN 10/19/19 10/20/19 History metoprolol succinate 50 mg PO DAILY 10/19/19 10/20/19 History quetiapine 200 mg PO HS 10/19/19 10/20/19 History mometasone-formoterol [Dulera] 2 inh INHALATION BID 10/20/19 10/20/19 History ranitidine HCl 300 mg PO HS 10/20/19 10/20/19 History Past Med/Surg History Medical History Anxiety Asthma Bipolar disorder Chronic back pain Depression Hepatitis C NO TREATMENT History of pulmonary embolism Myocardial Infarction 2 YEARS AGO Opioid dependence in remission Post traumatic stress disorder Seizure NO MEDS -- LAST SEIZURE JULY (TOWARDS THE END) 2017. 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 Feels Safe at Home: Yes Smoking Status: Current every day smoker Tobacco Type: cigarettes ; Cigarettes Per Day: 10 ; Second Hand Exposure: Yes ; Hx Alcohol Use: Yes (H/O) Alcohol type: other Hx Substance Use: Yes (H/O) substance use type: marijuana, opiates and IV drugs Last Used Substance: Unknown Review of Systems Review of Systems: ROS per HPI, all other systems reviewed and negative Physical Exam Constitutional: WD/WN, vitals as above no acute distress Eyes: PERRL, conjunctivae normal, anicteric sclerae ENMT: Ears: no external ear abnormality Nose: no external nose abnormality Mouth: + trismus and + poor dentition Edema noted to left mandibular region, no obvious intraoral abscess Neck: + submandibular swelling (left) Respiratory: normal respiratory effort, lungs clear to auscultation Cardiovascular: Rate/Rhythm: regular rhythm and + tachycardic (Heart rate low 100s) Vessels: normal peripheral pulses Extremities: no edema Gastrointestinal (Abdomen): normal bowel sounds, soft, nontender, no hepatosplenomegaly Musculoskeletal: no cyanosis or clubbing, extremities motor strength 5/5 Skin: no rashes, warm and dry Neurologic: PERRL, EOMI, accommodation nl, no face palsy, no dysarthria Psychiatric: A+Ox3, euthymic affect Results & Data Vital Signs (Past 12 Hours) Vital Signs Temp Pulse Resp BP Pulse Ox 10/20/19 18:15 121 H 24 97 10/20/19 18:07 120 H 26 H 128/61 96 10/20/19 18:06 123 H 23 97 10/20/19 17:45 127 H 27 H 10/20/19 17:30 134 H 28 H 10/20/19 17:15 133 H 33 H 10/20/19 17:00 140 H 25 H 10/20/19 16:45 138 H 18 10/20/19 16:43 136 H 29 H 10/20/19 16:30 134 H 21 123/75 10/20/19 16:19 38.5 C H 150 H 20 117/70 97 Laboratory Results Short CBC 10/20/19 Range/Units 17:00 WBC 10.07 (4.8-10.8) K/uL Hgb 13.6 (12.0-16.0) g/dL Hct 41.0 (37-47) % Plt Count 159 (130-400) K/uL BMP 10/20/19 17:00 Sodium 137 Potassium 3.4 L Chloride 105 Carbon Dioxide 25 BUN 14 Creatinine 0.59 L Glucose 102 H Calcium 8.9 Cardiac Enzymes 10/20/19 Range/Units 17:00 Troponin I < 0.015 (0-0.045) ng/ml Liver Function 10/20/19 Range/Units 17:00 Total Bilirubin 1.6 H (0.2-1) mg/dl AST 11 L (15-37) U/L ALT 17 (12-78) U/L Alkaline Phosphatase 91 (45-117) U/L Albumin 3.7 (3.4-5.0) gm/dl Diagnostic Findings SOFT TISSUE NECK CT IMPRESSION: 1. Odontogenic infection with periapical lucency/abscess at the left mandibular second molar. Extensive phlegmonous change along the left mandible and cellulitis without convincing evidence of a definable odontogenic abscess at this time. 2. No evidence of superior mediastinal involvement of the inflammatory change in the neck. 3. Reactive left cervical lymph nodes. CTA CHEST IMPRESSION: 1. No evidence of pulmonary embolus. No acute intrathoracic pathology. 2. Prior tricuspid valve annuloplasty. 3. Scattered areas of parenchymal scarring in the lungs. CXR IMPRESSION: 1. No acute cardiopulmonary disease. Code Status & VTE Plan VTE Prophylaxis Plan VTE Prophylaxis will be ordered: Yes Supervising Physician Co-Signing Physician Notes Attending Addendum: care coordinated with NICKOLAS Guzman please refer to her notes for full details, I agree with her notes patient seen and examined, records reviewed by myself as well on exam, patient seen sitting up in bed, not in distress states pain has improved still has pain with opening her mouth, swallowing denies shortness of breath, no tongue no other symptoms VS noted and reviewed oriented , not in distress, speaks in sentences with no effort nor accessory muscle use normal rate, regular rhythm, no murmurs clear breath sounds bilaterally non distended, soft, nontender no bipedal edema, erythema, warmth no neuro deficits WBC 10 Hg 13[address] soft tissue neck: 1. Odontogenic infection with periapical lucency/abscess at the left mandibular second molar. Extensive phlegmonous change along the left mandible and cellulitis without convincing evidence of a definable odontogenic abscess at this time. 2. No evidence of superior mediastinal involvement of the inflammatory change in the neck. 3. Reactive left cervical lymph nodes. ASSESSMENT AND PLAN SEPSIS ODONTOGENIC INFECTION, LEFT SUBMANDIBULAR MOLAR Sepsis protocol Unasyn, IV fluids Decadron x 24 hours- re-evaluated need to continue LOW K, PHOS, MAG - replace other diagnoses and plan of care as per NICKOLAS Guzman's notes Willie Almeida MD
[2019-10-20] MEDS ORDERED: ACETAMINOPHEN 325 MG TAB PO PRN (20:45)
[2019-10-20] MEDS ORDERED: POTASSIUM PHOS 3 MMOL/1 ML INFUSION IV STA (20:45)
[2019-10-20] MEDS ORDERED: POTASSIUM PHOSPHATE 15 MMOL in SODIUM CHLORIDE 0.9% 250 ML IV ONE (21:00)
[2019-10-20] MEDS: D5W AND NSS 1,000 ML IV SCH (21:57)
[2019-10-20] MEDS: NICOTINE 14 MG/24 HR PATCH TD SCH (22:01)
[2019-10-20] MEDS: QUETIAPINE FUMARATE 200 MG TAB PO SCH (22:03)
[2019-10-20] MEDS: FAMOTIDINE 40 MG TABLET PO SCH (22:03)
[2019-10-20] MEDS: AMPICILLIN/SULBACTAM SOD 3,000 MG in 0.9 % SODIUM CHLORIDE 100 ML IV SCH (22:47)
--- NOTE | 2019-10-20 23:04 | Emergency Department Note ---
Entered by Sissy Duarte acting as a scribe for Maxi Winston MD History of Present Illness General Chief complaint: Chest Pain Stated complaint: CHEST PAINS, HARD TO SWALLOW/BREATH Time Seen by Provider: 10/20/19 16:27 Source: patient History of Present Illness Provider complaint: chest pain Onset (ago): hour(s) greater than 10 Location: chest Maximum Pain Intensity: 10 Quality: + other (chest pain) Relieved By: not by medication Exacerbated By: + other (Deep breathing) Associated symptoms: + shortness of breath; no nausea/vomiting Treatments prior to arrival: other (Tyelnol; Ibuprofen) The patient, who is a 29 year old female with a medical history of chest pain, anxiety and endocarditis, presents to the Emergency Room with complaints of chest pain that started last night. The patient notes that the pain is in the center of her chest. The patient expresses that she has a shortness of breath. The patient expresses one episode of vomiting after eating ice cream but denies any nausea or vomiting currently. The patient states that her chest pain worsen with deep breathing, The patient explains that she was seen yesterday morning for a tooth pain and was prescribed antibiotics. The patient expresses that her tooth pain has worsened. The patient notes that she has been taking Tyelnol and Ibuprofen. The patient states that she took Tylenol during lunch and 800 mg of Ibuprofen two hours ago. The patient reports taking four doses of the antibiotics since yesterday. The patient reports that she was septic due to IV drug use. The patient confirms that she has been clean for two and a half years. 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 The patient states that she had her valves repaired but was unable to have them replaced due to her IV use. The patient reports that her last menstrual cycle was two weeks ago. The patient explains that she was on blood thinners before due to control use but confirms she has not been on them. The patient admits to smoking cigarettes. Home Medications Home Medications Medication Instructions Recorded Confirmed Type clindamycin HCl 300 mg PO QID 10 Days #40 cap 10/19/19 10/20/19 Rx hydroxyzine pamoate 50 mg PO TID PRN 10/19/19 10/20/19 History metoprolol succinate 50 mg PO DAILY 10/19/19 10/20/19 History quetiapine 200 mg PO HS 10/19/19 10/20/19 History mometasone-formoterol [Dulera] 2 inh INHALATION BID 10/20/19 10/20/19 History ranitidine HCl 300 mg PO HS 10/20/19 10/20/19 History Allergies Allergy/AdvReac Type Severity Reaction Status Date / Time cephalexin [From Keflex] AdvReac Nausea Unverified 10/20/19 18:13 doxycycline AdvReac Nausea Unverified 10/20/19 18:13 sulfamethoxazole AdvReac Nausea Unverified 10/20/19 18:13 [From Bactrim] trimethoprim [From Bactrim] AdvReac Nausea Unverified 10/20/19 18:13 Past Med/Surg History Medical History Anxiety Asthma Bipolar disorder Chronic back pain Depression Hepatitis C NO TREATMENT History of pulmonary embolism Myocardial Infarction 2 YEARS AGO Opioid dependence in remission Post traumatic stress disorder Seizure NO MEDS -- LAST SEIZURE JULY (TOWARDS THE END) 2017. 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 and A total of 10 systems reviewed and were otherwise negative Physical Exam Vital Signs Vital Signs - 24 hr 10/20/19 16:19 10/20/19 16:30 10/20/19 16:32 Temperature 38.5 C H Temperature Source Oral Pulse Rate 150 H 134 H Pulse Rate from SpO2 Sensor Respiratory Rate 20 21 Respiratory Effort / Characteristics Non-Labored Spontaneous Respiratory Depth Normal Respiratory Pattern Regular Blood Pressure 117/70 123/75 Blood Pressure Mean 85 87 Pulse Oximetry 97 Oxygen Delivery Method Room Air Room Air Sepsis Recent Fever Within 48 Hours Yes Sepsis New/Unexplained Change in Mental Status No Sepsis Action Taken by Nursing No Action Required 10/20/19 16:43 10/20/19 16:45 10/20/19 17:00 Temperature Temperature Source Pulse Rate 136 H 138 H 140 H Pulse Rate from SpO2 Sensor Respiratory Rate 29 H 18 25 H Respiratory Effort / Characteristics Respiratory Depth Respiratory Pattern Blood Pressure Blood Pressure Mean Pulse Oximetry Oxygen Delivery Method Sepsis Recent Fever Within 48 Hours Sepsis New/Unexplained Change in Mental Status Sepsis Action Taken by Nursing 10/20/19 17:15 10/20/19 17:30 10/20/19 17:45 Temperature Temperature Source Pulse Rate 133 H 134 H 127 H Pulse Rate from SpO2 Sensor Respiratory Rate 33 H 28 H 27 H Respiratory Effort / Characteristics Respiratory Depth Respiratory Pattern Blood Pressure Blood Pressure Mean Pulse Oximetry Oxygen Delivery Method Sepsis Recent Fever Within 48 Hours Sepsis New/Unexplained Change in Mental Status Sepsis Action Taken by Nursing 10/20/19 18:06 10/20/19 18:07 10/20/19 18:15 Temperature Temperature Source Pulse Rate 123 H 120 H 121 H Pulse Rate from SpO2 Sensor 124 H 121 H 120 H Respiratory Rate 23 26 H 24 Respiratory Effort / Characteristics Respiratory Depth Respiratory Pattern Blood Pressure 128/61 Blood Pressure Mean 92 Pulse Oximetry 97 96 97 Oxygen Delivery Method Room Air Room Air Room Air Sepsis Recent Fever Within 48 Hours Sepsis New/Unexplained Change in Mental Status Sepsis Action Taken by Nursing 10/20/19 18:30 10/20/19 18:31 10/20/19 18:45 Temperature Temperature Source Pulse Rate 117 H 115 H 115 H Pulse Rate from SpO2 Sensor 117 H 115 H 114 H Respiratory Rate 31 H 18 25 H Respiratory Effort / Characteristics Respiratory Depth Respiratory Pattern Blood Pressure 119/69 Blood Pressure Mean 77 Pulse Oximetry 96 98 96 Oxygen Delivery Method Sepsis Recent Fever Within 48 Hours Sepsis New/Unexplained Change in Mental Status Sepsis Action Taken by Nursing 10/20/19 19:00 10/20/19 19:01 Temperature Temperature Source Pulse Rate 103 H 109 H Pulse Rate from SpO2 Sensor 105 H 110 H Respiratory Rate 12 27 H Respiratory Effort / Characteristics Respiratory Depth Respiratory Pattern Blood Pressure 122/70 Blood Pressure Mean 109 Pulse Oximetry 97 97 Oxygen Delivery Method Sepsis Recent Fever Within 48 Hours Sepsis New/Unexplained Change in Mental Status Sepsis Action Taken by Nursing GENERAL: Awake, alert, ill-appearing, in no distress HENT: Normocephalic, atraumatic. Oropharynx with dry mucous membranes and otherwise unremarkable. EYES: Normal conjunctiva. Sclera non-icteric. NECK: Supple. No nuchal rigidity. FROM. No JVD. Mild swelling of the left lower mandible extending to neck with fullness of the submandibular area. Mild trismus but handling secretions. No stridor. RESPIRATORY: CTA bilaterally. CARDIAC: Tachycardic rate, normal rhythm. Extremities warm and well perfused. Pulses equal. ABDOMEN: Soft, non-distended. No tenderness to palpation. No rebound or guardin g. No masses. RECTAL: Deferred. MUSCULOSKELETAL: Chest examination reveals no tenderness. The back is symmetrical on inspection without obvious abnormality. There is no CVA tenderness to palpation. No joint edema. LOWER EXTREMITIES: Calves are equal size bilaterally and non-tender. No edema. No discoloration. NEURO: Normal sensorium. No sensory or motor deficits noted. SKIN: No rash or jaundice noted. Course Course 163: Past medical records reviewed. The patient was evaluated in room A2. A complete history and physical exam was performed. 1845: I reviewed the patient's case with NICKOLAS Almonte. She will evaluate the patient for further management. 185: I reviewed the patient's case with Dr. Malloy, [facility] Oral Surgery. He states that he is out of town and will be able to see her on Monday. He agrees that he would not plan on doing anything for 24 - 48 hours so she can be on IV antibiotics since there is no drainable collection. Consultations Consultation #1: I reviewed the patient's case with NICKOLAS Almonte. She will evaluate the patient for further management. Time: 18:45 Consultation #2: I reviewed the patient's case with Dr. Malloy, [facility] Oral Surgery. He states that he is out of town and will be able to see her on Mon evening. He agrees that he would not plan on doing anything for 24 - 48 hours so she can be on IV antibiotics since there is no drainable collection. Time: 18:53 Administered Medications Famotidine (Pepcid) 40 mg PO HS [facility] Stop: 11/19/19 20:59 Last Admin: 10/20/19 22:03 Dose: 40 mg Documented by: [id number] Ampicillin Sodium/Sulbactam Sodium 3,000 mg/ Sodium Chloride 108 mls @ 200 mls/hr IV Q6H [facility]; Protocol Stop: 10/30/19 20:59 Last Infusion: 10/20/19 23:24 Dose: 0 mls/hr Documented by: [id number] Admin: 10/20/19 22:47 Dose: 200 mls/hr Documented by: [id number] Dextrose/Sodium Chloride (D5w And Nss) 1,000 mls @ 100 mls/hr IV .Q10H [facility] Stop: 11/19/19 20:44 Last Admin: 10/20/19 21:57 Dose: 100 mls/hr Documented by: [id number] Acetaminophen (Ofirmev) 1,000 mg in 100 mls @ 400 mls/hr IV Q8H [facility] Stop: 10/24/19 01:29 Last Infusion: 10/21/19 01:46 Dose: 0 mls/hr Documented by: [id number] Admin: 10/21/19 01:26 Dose: 400 mls/hr Documented by: [id number] Dexamethasone Sodium Phosphate (2 mg/ Syringe) 0.5 mls @ 1 mls/min IV Q8H [facility] Stop: 11/20/19 00:59 Last Admin: 10/21/19 01:22 Dose: 1 mls/min Documented by: [id number] Nicotine (Nicoderm Cq) 14 mg TD QAM [facility] Stop: 11/19/19 20:44 Last Admin: 10/20/19 22:01 Dose: 14 mg Documented by: [id number] Quetiapine Fumarate (Seroquel) 200 mg PO [facility] Stop: 11/19/19 20:59 Last Admin: 10/20/19 22:03 Dose: 200 mg Documented by: [id number] Discontinued Medications Dexamethasone Sodium Phosphate (Decadron Pf) 10 mg IV NOW ONE Stop: 10/20/19 16:34 Last Admin: 10/20/19 17:34 Dose: 10 mg Documented by: [id number] Sodium Chloride (Nss 1000ml) 2,000 mls @ 999 mls/hr IV .Q2H1M ONE Stop: 10/20/19 18:31 Last Infusion: 10/20/19 20:06 Dose: 0 mls/hr Documented by: [id number] Admin: 10/20/19 17:34 Dose: 999 mls/hr Documented by: [id number] Acetaminophen (Ofirmev) 1,000 mg in 100 mls @ 400 mls/hr IV NOW STA Stop: 10/20/19 16:45 Last Infusion: 10/20/19 18:13 Dose: 0 mls/hr Documented by: [id number] Admin: 10/20/19 17:34 Dose: 400 mls/hr Documented by: [id number] Piperacillin Sod/Tazobactam Sod (Zosyn) 4.5 gm in 120 mls @ 240 mls/hr IV NOW ONE Stop: 10/20/19 17:02 Last Infusion: 10/20/19 18:49 Dose: 0 mls/hr Documented by: [id number] Admin: 10/20/19 18:14 Dose: 240 mls/hr Documented by: [id number] Vancomycin HCl 1,750 mg/ (Sodium Chloride) 535 mls @ 200 mls/hr IV NOW ONE Stop: 10/20/19 19:13 Last Infusion: 10/20/19 22:44 Dose: 0 mls/hr Documented by: [id number] Admin: 10/20/19 18:49 Dose: 200 mls/hr Documented by: [id number] Magnesium Sulfate/Dextrose (Magnesium Sulfate / D5w) 1 gm in 100 mls @ 100 mls/hr IV Q1H [facility] Stop: 10/20/19 22:44 Last Infusion: 10/21/19 01:31 Dose: 0 mls/hr Documented by: [id number] Admin: 10/21/19 00:15 Dose: 100 mls/hr Documented by: [id number] Infusion: 10/21/19 00:15 Dose: 100 mls/hr Documented by: [id number] Admin: 10/20/19 23:19 Dose: 100 mls/hr Documented by: [id number] Potassium Phosphate 15 mmol/ (Sodium Chloride) 255 mls @ 88 mls/hr IV ONE ONE Stop: 10/20/19 23:53 Last Infusion: 10/21/19 01:31 Dose: 0 mls/hr Documented by: [id number] Admin: 10/20/19 21:58 Dose: 88 mls/hr Documented by: [id number] Ioversol (Optiray 320 125ml) 119 ml IV ONCE PRN PRN Reason: Interaction Checking Stop: 10/24/19 17:54 Last Admin: 10/20/19 17:55 Dose: 119 ml Documented by: [id number] Critical Care Time Critical Care Time: Yes Total Critical Care Time: 35 I have personally spent 35 minutes of critical care time in the direct management of this patient. This includes bedside care, interpretation of diagnostic studies, and testing, discussion with consultants, patient, and family members, and other required patient management activities. This 35 minutes is in excess of all separately billable procedures. Medical Decision Making Differential Diagnosis Differential diagnosis includes viral syndrome, otitis, pharyngitis, pneumonia, influenza, meningitis, urinary tract infection, sepsis, bacteremia, as well as others were entertained. Medical Records Attestation: I reviewed the patient's medical records. Home Medications Current Medication List: was personally reviewed by me Laboratory Data Attestation: I reviewed the patient's lab results. Result diagrams: 10/20/19 17:00 10/20/19 17:00 Lab Results 10/20/19 10/20/19 10/20/19 Range/Units 17:00 17:00 17:00 WBC 10.07 (4.8-10.8) K/uL RBC 4.31 (4.2-5.4) M/uL Hgb 13.6 (12.0-16.0) g/dL Hct 41.0 (37-47) % MCV 95.1 (80-100) fL MCH 31.6 (25-34) pg MCHC 33.2 (32-36) g/dL RDW Std Deviation 45.5 (36.4-46.3) fL RDW Coeff of Des 13.1 (11.5-14.5) % Plt Count 159 (130-400) K/uL MPV 10.5 H (7.4-10.4) fL Immature Gran % (Auto) 0.7 % Neut % (Auto) 87.0 % Lymph % (Auto) 2.7 % Mitchell % (Auto) 9.5 % Eos % (Auto) 0.0 % Baso % (Auto) 0.1 % Immature Gran # (Auto) 0.07 H (0.00-0.02) K/uL Neut # (Auto) 8.76 H (1.4-6.5) K/uL Lymph # (Auto) 0.27 L (1.2-3.4) K/uL Mitchell # (Auto) 0.96 H (0.11-0.59) K/uL Eos # (Auto) 0.00 (0-0.5) K/uL Baso # (Auto) 0.01 (0-0.2) K/uL PT 12.4 H (9.0-12.0) Seconds INR 1.2 H (0.9-1.1) APTT 27.7 (21.0-31.0) Seconds PTT Ratio 1.0 VBG pH (7.36-7.41) VBG pCO2 (38-50) mmHg VBG pO2 mmHg VBG HCO3 mmol/L VBG O2 Saturation % VBG Base Excess mEq/L Barometric Pressure mm/Hg Sodium 137 (136-145) mmol/L Potassium 3.4 L (3.5-5.1) mmol/L Chloride 105 (98-107) mmol/L Carbon Dioxide 25 (21-32) mmol/L Anion Gap 7.0 (3-11) BUN 14 (7-18) mg/dl Creatinine 0.59 L (0.6-1.2) mg/dl Est Cr Clr Drug Dosing 155.0 ml/min Est GFR ( Amer) 144.6 Est GFR (Non-Af Amer) 124.7 BUN/Creatinine Ratio 23.9 H (10-20) Glucose 102 H (70-99) mg/dl Lactate (0.4-2.0) mmol/L Calcium 8.9 (8.5-10.1) mg/dl Phosphorus 1.6 L (2.5-4.9) mg/dl Magnesium 1.5 L (1.8-2.4) mg/dl Total Bilirubin 1.6 H (0.2-1) mg/dl AST 11 L (15-37) U/L ALT 17 (12-78) U/L Alkaline Phosphatase 91 (45-117) U/L Troponin I < 0.015 (0-0.045) ng/ml Total Protein 7.4 (6.4-8.2) gm/dl Albumin 3.7 (3.4-5.0) gm/dl Globulin 3.7 (2.5-4.0) gm/dl Albumin/Globulin Ratio 1.0 (0.9-2) TSH 0.361 (0.300-4.500) uIu/ml HCG, Qual (Negative) 10/20/19 10/20/19 10/20/19 Range/Units 17:00 17:00 17:00 WBC (4.8-10.8) K/uL RBC (4.2-5.4) M/uL Hgb (12.0-16.0) g/dL Hct (37-47) % MCV (80-100) fL MCH (25-34) pg MCHC (32-36) g/dL RDW Std Deviation (36.4-46.3) fL RDW Coeff of Des (11.5-14.5) % Plt Count (130-400) K/uL MPV (7.4-10.4) fL Immature Gran % (Auto) % Neut % (Auto) % Lymph % (Auto) % Mitchell % (Auto) % Eos % (Auto) % Baso % (Auto) % Immature Gran # (Auto) (0.00-0.02) K/uL Neut # (Auto) (1.4-6.5) K/uL Lymph # (Auto) (1.2-3.4) K/uL Mitchell # (Auto) (0.11-0.59) K/uL Eos # (Auto) (0-0.5) K/uL Baso # (Auto) (0-0.2) K/uL PT (9.0-12.0) Seconds INR (0.9-1.1) APTT (21.0-31.0) Seconds PTT Ratio VBG pH 7.52 H (7.36-7.41) VBG pCO2 29 L (38-50) mmHg VBG pO2 79 mmHg VBG HCO3 23 mmol/L VBG O2 Saturation 96.8 % VBG Base Excess 1.4 mEq/L Barometric Pressure 731.7 mm/Hg Sodium (136-145) mmol/L Potassium (3.5-5.1) mmol/L Chloride (98-107) mmol/L Carbon Dioxide (21-32) mmol/L Anion Gap (3-11) BUN (7-18) mg/dl Creatinine (0.6-1.2) mg/dl Est Cr Clr Drug Dosing ml/min Est GFR ( Amer) Est GFR (Non-Af Amer) BUN/Creatinine Ratio (10-20) Glucose (70-99) mg/dl Lactate 1.2 (0.4-2.0) mmol/L Calcium (8.5-10.1) mg/dl Phosphorus (2.5-4.9) mg/dl Magnesium (1.8-2.4) mg/dl Total Bilirubin (0.2-1) mg/dl AST (15-37) U/L ALT (12-78) U/L Alkaline Phosphatase (45-117) U/L Troponin I (0-0.045) ng/ml Total Protein (6.4-8.2) gm/dl Albumin (3.4-5.0) gm/dl Globulin (2.5-4.0) gm/dl Albumin/Globulin Ratio (0.9-2) TSH (0.300-4.500) uIu/ml HCG, Qual Negative (Negative) Imaging Data Radiologist's Impression: Radiology results as stated below per my review and the radiologist's interpretation: XR chest 1V portable CLINICAL HISTORY: 29 years-old Female presenting with SEPSIS. TECHNIQUE: Portable upright AP view of the chest was obtained. COMPARISON: 07/30/2019. FINDINGS: Median sternotomy wires and tricuspid annuloplasty unchanged. Mild prominence of the main pulmonary artery as on prior exam. Cardiac silhouette normal in size. No focal opacity. No large effusion or pneumothorax. Osseous structures normal. Cholecystectomy clips noted. IMPRESSION: 1. No acute cardiopulmonary disease. ACT 112: Negative or not required by law. Electronically signed by: Justino Samaniego M.D. 10/20/2019 5:[address] angio chest PE protocol CLINICAL HISTORY: 29 years-old Female presenting with right-sided mandibular p ain and swelling, chest pain. TECHNIQUE: Multidetector CT angiography of the chest was performed after administration of intravenous contrast. 3-D volumetric and/or maximum intensity projection (MIP) images were subsequently reconstructed for review. IV contrast: 119 mL of Optiray 320. One or more dose lowering techniques were used consistent with the principles of ALARA (as low as reasonably achievable), including automatic exposure control, mA or kV adjustment to individual patient size, and/ or use of iterative reconstruction. COMPARISON: 08/07/2017. CT DOSE (mGy.cm): The estimated cumulative dose is 1151.75 mGy.cm. FINDINGS: Manufacturing Supervisor topogram: Median sternotomy wires. Pulmonary vasculature: The study is adequate for assessment of the pulmonary vascular tree. No filling defect within the pulmonary arteries to suggest embolus. Main pulmonary artery is not enlarged. No flattening of the interventricular septum. No intracardiac filling defect. No reflux of contrast into the hepatic veins. Remaining chest: Soft tissues: Normal thyroid and thoracic inlet. No axillary, supraclavicular, mediastinal, or hilar lymphadenopathy. Normal aorta. Postsurgical changes of tricuspid valve annuloplasty. Normal heart size. No pericardial or pleural effusion. Upper abdomen normal. Lungs and airways: No pneumothorax. Central airways patent. Pulmonary arteries are not significantly enlarged relative to adjacent bronchi. No interlobular septal thickening. Focal apparent nodule at the right apex unchanged from prior and likely pleural parenchymal scarring. Scattered additional sites of scarring bilaterally. Musculoskeletal: Well-healed median sternotomy. IMPRESSION: 1. No evidence of pulmonary embolus. No acute intrathoracic pathology. 2. Prior tricuspid valve annuloplasty. 3. Scattered areas of parenchymal scarring in the lungs. ACT 112: Negative or not required by law. Electronically signed by: Justino Samaniego M.D. 10/20/2019 6:[address] soft tissue neck w con CLINICAL HISTORY: 29 years-old Female presenting with left jaw/neck swelling, Trismus ?Liam's angina. TECHNIQUE: Multidetector CT of the neck was performed after the administration of intravenous contrast. IV contrast: 119 mL of Optiray 320. One or more dose lo wering techniques were used consistent with the principles of ALARA (as low as reasonably achievable), including automatic exposure control, mA or kV adjustment to individual patient size, and/or use of iterative reconstruction. COMPARISON: None. CT DOSE (mGy.cm): The estimated cumulative dose is 1151.75. FINDINGS: Manufacturing Supervisor topogram: Unremarkable. Periapical lucency at the left mandibular second molar. There is cortical breakthrough along the buccal aspect. There is no gross evidence of an odo ntogenic abscess though there is extensive regional inflammation along the left mandible. Infiltration of the left submandibular region extending along the anterior neck with edema noted superficial to the pretracheal musculature. This extends to the suprasternal region but does not involve the superior mediastinum. Vasculature patent. Mild enlargement of the left submandibular gland with surrou nding fluid. No ductal dilatation. Prominent subcentimeter lymph nodes in the submandibular and jugulodigastric regions on the left. Thyroid and parotid glands normal. Nonspecific mild mucosal thickening in the right maxillary sinus. Aerated secretions also noted in the right maxillary sinus. Limited intracranial evaluation within normal limits. Cervical spine within normal limits. Lung apices clear apart from scarring at the right apex. No soft tissue emphysema. IMPRESSION: 1. Odontogenic infection with periapical lucency/abscess at the left mandibular second molar. Extensive phlegmonous change along the left mandible and cellulitis without convincing evidence of a definable odontogenic abscess at this time. 2. No evidence of superior mediastinal involvement of the inflammatory change in the neck. 3. Reactive left cervical lymph nodes. ACT 112: Negative or not required by law. Electronically signed by: Justino Samaniego M.D. 10/20/2019 6:16 PM ECG Data Attestation: I personally reviewed and interpreted this ECG as follows: Indication: + chest pain Rate (beats per minute): 138 Rhythm: + sinus tachycardia ECG [place]: + Normal ECG ST segments: + Nonspecific ST abnormalities; no ST depression and no ST elevation ECG Findings: + Other (Nonspecific T-wave abnormality; QTC of 451; QRS of 88;) Blood Pressure Blood Pressure Findings: Normal blood pressure MDM Narrative The patient is a pleasant 29-year-old woman with a past medical history of remote endocarditis/sepsis in the setting of a remote history of IV drug use for which the patient reports she has been clean for many years who now presents emergency department with worsening chest pain, feverishness and body aches over the past 24 hours in the setting of being seen in the emergency department yesterday for dental infection started on clindamycin per HPI. On arrival the patient is uncomfortable but no acute distress, febrile to 38.5 with heart rate in the 150s and blood pressure otherwise stable. On exam the patient appears clinically dry. She has mild swelling of the left mandible and submandibular region without crepitus. There is no pain with tracheal manipulation. There is mild trismus but the patient is handling her secretions without difficulty. EKG without overt acute ischemia. Chest x-ray negative for acute process. WBC, H/H and platelets within normal limits. VBG unremarkable. Potassium 3.4, magnesium 1.5 and phosphorus 1.6. LFTs unremarkable. Lactate 1.2. Chemistry without acidosis. Troponin negative/undetectable. Cultures were drawn upon arrival and patient was ordered for Zosyn and vancomycin given her previous history. CT soft tissue neck and CTA of the chest were performed. CT of the neck demonstrates left submandibular otogenic infection without discrete abscess formation and otherwise phlegmonous change. No evidence of extension to chest/mediastinum. No evidence of PE or pneumonia. The patient's presentation with fever tachycardia and her previous history involving endocarditis with valve repair reasonable admit the patient for IV antibiotics and close monitoring. Case was discussed with Nohemi Almonte who evaluate the patient for admission. Case additionally discussed with BUZZ Becerra on behalf of the admitting team. He will be out of town until Monday at which point he would be happy to evaluate the patient upon inpatient team consultation. Agrees that given there is no drainable collection at this time he would not perform any surgical intervention at this time and agrees with initial treatment with IV antibiotics before any surgical intervention. Impression & Plan Odontogenic infection of jaw, Atypical chest pain, Fever, Tachycardia Discharge Plan Visit Data *Final* Discharge Date/Time: 10/20/19 20:07 Chief Complaint: Chest Pain Stated Complaint: CHEST PAINS, HARD TO SWALLOW/BREATH ED Provider: Maxi Winston Discharge Problem: Odontogenic infection of jaw, Atypical chest pain, Fever, Tachycardia Patient Disposition: Admitted As Inpatient Discharge Instructions Interventions: ED Discharge Assessment Last Done: 10/20/19 20:07 Discharge Problem: Fever Qualifiers: Fever type: unspecified Qualified Code(s): R50.9 - Fever, unspecified The scribe's documentation has been prepared under my direction and personally reviewed by me in its entirety. I confirm that the note above accurately reflects all work, treatment, procedures, and medical decision making performed by me.
[2019-10-20] MEDS: MAGNESIUM SULFATE / D5W 1 GM/100 ML BAG IV SCH (23:19)
[2019-10-21] MEDS: MAGNESIUM SULFATE / D5W 1 GM/100 ML BAG IV SCH (00:15)
[2019-10-21] MEDS: DEXAMETHASONE SOD PHOSPHATE 2 MG in SYRINGE 0 ML IV SCH ×3 (01:22→16:17)
[2019-10-21] MEDS: ACETAMINOPHEN 1,000 MG/100 ML VIAL IV SCH ×3 (01:26→18:32)
[2019-10-21] MEDS: AMPICILLIN/SULBACTAM SOD 3,000 MG in 0.9 % SODIUM CHLORIDE 100 ML IV SCH ×4 (03:24→20:33)
[2019-10-21 05:54] LABS: Appearance Urine Clear (Clear); Bilirubin Urine Negative (Negative); Blood Urine Negative (Negative); Color Urine Yellow; Glucose Urine UA Negative (Negative); Ketones Urine Negative (Negative); Leukocyte Esterase Urine Negative (Negative); Nitrite Urine Negative (Negative); Protein Urine Negative (Negative); Specific Gravity Urine 1.019 (1.000-1.030); Urobilinogen Urine Negative (Negative)
[2019-10-21 06:50] LABS: Mean Corpuscular Hemoglobin 32.1 pg (25-34); Mean Corpuscular Hgb Conc 33.3 g/dL (32-36); Mean Corpuscular Volume 96.3 fL (80-100); Mean Platelet Volume 10.4 fL (7.4-10.4); Platelet Count 164 K/uL (130-400); RDW Coefficient of Variation 13.2 % (11.5-14.5); Red Blood Count 3.74 M/uL (4.2-5.4); White Blood Count 9.84 K/uL (4.8-10.8)
[2019-10-21 07:13] LABS: BUN Creatinine Ratio 14.4 (10-20); Blood Urea Nitrogen 7 mg/dl (7-18); Calcium 8.5 mg/dl (8.5-10.1); Carbon Dioxide 23 mmol/L (21-32); Chloride 114 mmol/L (98-107); Creatinine Clr Calc Pharmacy 199.6 ml/min; Est GFR (African American) > 150.0; Est GFR (Non-African American) 135.4; Glucose 140 mg/dl (70-99); Magnesium 2.3 mg/dl (1.8-2.4); Phosphorus 1.8 mg/dl (2.5-4.9); Potassium 3.7 mmol/L (3.5-5.1); Sodium 141 mmol/L (136-145)
[2019-10-21] MEDS: D5W AND NSS 1,000 ML IV SCH ×2 (08:58→18:31)
[2019-10-21] MEDS: METOPROLOL SUCC 50MG EXT REL TAB PO SCH (09:00)
[2019-10-21] MEDS: NICOTINE 14 MG/24 HR PATCH TD SCH (09:01)
[2019-10-21] MEDS: FLUTICASONE/VILANTEROL 100/25MCG 14 PUFFS/INHALER INH SCH (10:09)
[2019-10-21] MEDS: KETOROLAC TROMETHAMINE 15 MG/ML VIAL IV PRN ×2 (13:43→20:31)
--- NOTE | 2019-10-21 14:07 | Hospitalist Progress Note ---
Date of Service October 21, 2019 Assessment & Plan (1) Dental infection: (2) Sepsis: Present on admission with fever and tachycardia CT neck showed odontogenic infection with periapical lucency/abscess at the left mandibular second molar. Extensive phlegmonous change along the left mandible and cellulitis without convincing evidence of a definable odontogenic abscess at this time. 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 Continue metoprolol stable (7) Bipolar disorder: Continue Seroquel (8) Asthma: No signs of acute exacerbation Continue home inhalers Stable (9) DVT prophylaxis: SCDs, ambulate Subjective Pt was seen and examined Lying in bed with no distress Continue to have tenderness in left side of her cheek She said that she felt that she is having a hard time to breath Currently denies any chest pain, palpitation, dizziness and fever Physical Exam Physical Exam: General- No acute distress Head- atraumatic Eyes- PERRL, EOMI, ENT- poor dentition, tenderness in left mandible area Neck- supple, no JVD Lungs- clear to auscultation Heart- regular rhythm; +murmur Abdomen- normal bowel sounds, soft, nontender Extremities- no calf tenderness Neuro- alert, oriented x 3; PERRL, EOMI; no facial palsy; no dysarthria Skin- warm & dry Results & Data Vital Signs (Past 12 Hours) Vital Signs Temp Pulse Resp BP Pulse Ox 10/21/19 11:52 36.8 C 79 16 107/64 95 10/21/19 08:48 36.6 C 99 H 24 112/62 95 10/21/19 07:03 36.4 C L 70 18 112/70 96 10/21/19 04:07 36.6 C 73 17 109/68 97
[2019-10-21] MEDS ORDERED: POTASSIUM PHOS 3 MMOL/1 ML INFUSION IV STA (14:34)
[2019-10-21] MEDS ORDERED: POTASSIUM PHOSPHATE 15 MMOL in SODIUM CHLORIDE 0.9% 250 ML IV STA (14:36)
[2019-10-21] MEDS: MoRPHine SULFATE 4 MG/ML 1 ML CARP\\VIAL IV PRN ×2 (16:16→22:17)
[2019-10-21] MEDS: FAMOTIDINE 40 MG TABLET PO SCH (20:38)
[2019-10-21] MEDS: QUETIAPINE FUMARATE 200 MG TAB PO SCH (20:38)
--- NOTE | 2019-10-21 21:43 | Electrocardiogram Report ---
Test Reason : Blood Pressure : / mmHG Vent. Rate : 138 BPM Atrial Rate : 138 BPM P-R Int : 130 ms QRS Dur : 088 ms QT Int : 298 ms P-R-T Axes : 064 039 063 degrees QTc Int : 451 ms Poor data quality, interpretation may be adversely affected Sinus tachycardia Possible Left atrial enlargement Abnormal ECG When compared with ECG of 01-AUG-2018 04:21, T wave inversion now evident in Anterolateral leads Confirmed by Sonu Powers ([id number]) on 10/21/2019 9:43:16 PM Referred By: REFERRED SELF Confirmed By:Sonu Powers
[2019-10-22] MEDS: DEXAMETHASONE SOD PHOSPHATE 2 MG in SYRINGE 0 ML IV SCH ×3 (00:57→17:12)
[2019-10-22] MEDS: ACETAMINOPHEN 1,000 MG/100 ML VIAL IV SCH ×3 (01:38→19:21)
[2019-10-22] MEDS: D5W AND NSS 1,000 ML IV SCH (02:02)
[2019-10-22] MEDS: AMPICILLIN/SULBACTAM SOD 3,000 MG in 0.9 % SODIUM CHLORIDE 100 ML IV SCH ×4 (03:26→21:07)
[2019-10-22] MEDS: MoRPHine SULFATE 4 MG/ML 1 ML CARP\\VIAL IV PRN ×3 (05:15→17:52)
--- NOTE | 2019-10-22 05:49 | Electrocardiogram Report ---
Test Reason : Blood Pressure : / mmHG Vent. Rate : 094 BPM Atrial Rate : 094 BPM P-R Int : 136 ms QRS Dur : 094 ms QT Int : 310 ms P-R-T Axes : 077 046 021 degrees QTc Int : 387 ms Normal sinus rhythm Nonspecific T wave abnormality Abnormal ECG When compared with ECG of 20-OCT-2019 16:27, T wave inversion no longer evident in Anterolateral leads Confirmed by Sonu Powers ([id number]) on 10/22/2019 5:48:56 AM Referred By: REFERRED SELF Confirmed By:Sonu Powers
[2019-10-22] MEDS: KETOROLAC TROMETHAMINE 15 MG/ML VIAL IV PRN ×2 (06:38→15:32)
[2019-10-22] MEDS: NICOTINE 14 MG/24 HR PATCH TD SCH (09:22)
[2019-10-22] MEDS: METOPROLOL SUCC 50MG EXT REL TAB PO SCH (09:24)
[2019-10-22] MEDS: FLUTICASONE/VILANTEROL 100/25MCG 14 PUFFS/INHALER INH SCH (09:27)
[2019-10-22] MEDS: POT PHOSPHATE MONOBASIC W/ SOD TAB PO SCH ×2 (15:06→21:08)
--- NOTE | 2019-10-22 18:10 | Hospitalist Progress Note ---
Date of Service October 22, 2019 Assessment & Plan (1) Dental infection: (2) Sepsis: Present on admission with fever and tachycardia CT neck showed odontogenic infection with periapical lucency/abscess at the left mandibular second molar. Extensive phlegmonous change along the left mandible and cellulitis without convincing evidence of a definable odontogenic abscess at this time. Received Vanco and Zosyn in the ED Currently on Unasyn for now, will continue Continue IV steroid for now Blood cx no growth Oral maxillofacial consulted case discussed with Dr. 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 Lying in bed with no distress Pt said that left mandible pain improves She said that she continues to have difficulty to open her mouth wide Denies any chest pain, palpitation and SOB Physical Exam Physical Exam: General- No acute distress Head- atraumatic Eyes- PERRL, EOMI, ENT- poor dentition, tenderness in left mandible area Neck- supple, no JVD Lungs- clear to auscultation Heart- regular rhythm; +murmur Abdomen- normal bowel sounds, soft, nontender Extremities- no calf tenderness Neuro- alert, oriented x 3; PERRL, EOMI; no facial palsy; no dysarthria Skin- warm & dry Results & Data Vital Signs (Past 12 Hours) Vital Signs Temp Pulse Pulse Resp BP Pulse Ox 10/22/19 15:37 53 L 10/22/19 15:25 36.8 C 75 16 142/93 H 96 10/22/19 11:24 36.7 C 50 L 16 134/72 98 10/22/19 09:28 64 10/22/19 07:51 36.8 C 52 L 16 123/76 97
--- NOTE | 2019-10-22 19:30 | Surgery Consultation ---
Date of Consultation October 22 I reviewed the treatment plan and consent with the patient . Understanding was expressed. Time was given for questions regarding the surgery, risks and post op care. The procedure will be set up in the OR tomorrow. Oral Exam Present Complaint: pain, trismus, swelling, infected and fractured teeth (# 18) A detailed oral exam was completed. Soft tissue---all the tissue is swollen and red in the mandibular space and submandibular area as well as the subperiosteal area of # 18. There is also gingival swelling lower right side adjacent to teeth # 28,29,30 Cancer exam--No lesions noted that require follow up or Bx. Oral Care---Overall oral care is fair Occlusion---Class I with missing teeth H/O ortho in past retainer bonded to lower anterior teeth. TMJ exam---No pop, clicking, pain, ROM limited secondary to masseter space infection CT exam--I reviewed the CT scan and agree with the finding, I do believe there is a abscess in the masseter space causing the severe trismus with minimal external swelling, this is caused by the infected fracture # 18. Periodontal exam---swelling of gingival due to fractured and decayed teeth= # 5,7,18,28,29,30 The soft tissue of the tongue, floor of mouth, palate (hard/soft) all WNL/ Noted swelling associated with gingival as above. Neck is supple, FROM, Able to extend and flex neck w/o difficulty, resolving left submandibular gland swelling no other masses, no other abnormalities. Plan: NPO tonight To OR tomorrow to drain and debrided the left masseter space infection and extraction of # 18, Once she is under GA I will be better able to exam any other teeth for extraction ( not able to evaluate due to pain and limited opening) Nancy understands that at least # 18 possible others ( 5,7,28,29,30). Expect D/C on oral antibiotics. Her teeth are now fractures and grossly decayed: This has been going on for a while and patient was admitted for the severe trismus and infection not responding to out patient therapy. Findings: The infected teeth , removal is indicated and medically necessary to control current infection. Risks discussed: Pain,swelling,infection, dry socket, delayed healing, nerve injury to face,lips,tongue,chin area which could be permanent (rare). TMJ, jaw stiffness, change in bite (rare), ear pain (referred). Home care reviewed--tooth brushing, rinsing, follow up care with Dr Malloy, diet=[id number] Discussed activity level preparation for the GA and surgery at Hospital Monday. History of Present Illness Attending Physician: Faviola Maguire MD Allergies Allergy/AdvReac Type Severity Reaction Status Date / Time cephalexin [From Keflex] AdvReac Nausea Unverified 10/20/19 18:13 doxycycline AdvReac Nausea Unverified 10/20/19 18:13 sulfamethoxazole AdvReac Nausea Unverified 10/20/19 18:13 [From Bactrim] trimethoprim [From Bactrim] AdvReac Nausea Unverified 10/20/19 18:13 Home Medications Home Medications Medication Instructions Recorded Confirmed Type clindamycin HCl 300 mg PO QID 10 Days #40 cap 10/19/19 10/20/19 Rx hydroxyzine pamoate 50 mg PO TID PRN 10/19/19 10/20/19 History metoprolol succinate 50 mg PO DAILY 10/19/19 10/20/19 History quetiapine 200 mg PO HS 10/19/19 10/20/19 History mometasone-formoterol [Dulera] 2 inh INHALATION BID 10/20/19 10/20/19 History ranitidine HCl 300 mg PO HS 10/20/19 10/20/19 History Patient History Medical History Anxiety Asthma Bipolar disorder Chronic back pain Depression Hepatitis C NO TREATMENT History of pulmonary embolism Myocardial Infarction 2 YEARS AGO Opioid dependence in remission Post traumatic stress disorder Seizure NO MEDS -- LAST SEIZURE JULY (TOWARDS THE END) 2017. 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 Other Information That Helps Us Care for You: No Feels Safe at Home: Yes Safety Concerns: Feels Safe At This Time Smoking Status: Heavy tobacco smoker Tobacco Type: cigarettes ; Cigarettes Per Day: 10 ; Do You Dip or Chew Tobacco: No ; Second Hand Exposure: Yes ; Tobacco Cessation Education Requested by Patient: No Hx Alcohol Use: No Hx Substance Use: Yes substance use type: marijuana Last Used Substance: Unknown Results & Data Vital Signs (Past 12 Hours) Vital Signs Temp Pulse Pulse Resp BP Pulse Ox 10/22/19 15:37 53 L 10/22/19 15:25 36.8 C 75 16 142/93 H 96 10/22/19 11:24 36.7 C 50 L 16 134/72 98 10/22/19 09:28 64 10/22/19 07:51 36.8 C 52 L 16 123/76 97 PG Care Time/CCT Total # of Minutes Spent Total Time Spent with Patient: Total time spent is greater than 50% in coordination of care (as documented) at patient's floor/unit and/or counseling patient:
[2019-10-22] MEDS: FAMOTIDINE 40 MG TABLET PO SCH (21:08)
[2019-10-22] MEDS: QUETIAPINE FUMARATE 200 MG TAB PO SCH (21:08)
[2019-10-23] MEDS: MoRPHine SULFATE 4 MG/ML 1 ML CARP\\VIAL IV PRN ×4 (00:02→21:25)
[2019-10-23] MEDS: ACETAMINOPHEN 1,000 MG/100 ML VIAL IV SCH ×3 (02:13→20:31)
[2019-10-23] MEDS: DEXAMETHASONE SOD PHOSPHATE 2 MG in SYRINGE 0 ML IV SCH ×3 (02:13→20:32)
[2019-10-23] MEDS: AMPICILLIN/SULBACTAM SOD 3,000 MG in 0.9 % SODIUM CHLORIDE 100 ML IV SCH ×3 (05:34→20:32)
[2019-10-23 07:37] LABS: BUN Creatinine Ratio 14.5 (10-20); Calcium 8.5 mg/dl (8.5-10.1); Est GFR (African American) 145.4; Est GFR (Non-African American) 125.4; Potassium 3.8 mmol/L (3.5-5.1)
[2019-10-23 07:41] LABS: Phosphorus 2.9 mg/dl (2.5-4.9)
[2019-10-23] MEDS: FLUTICASONE/VILANTEROL 100/25MCG 14 PUFFS/INHALER INH SCH (09:11)
[2019-10-23] MEDS: POT PHOSPHATE MONOBASIC W/ SOD TAB PO SCH (09:12)
[2019-10-23] MEDS: METOPROLOL SUCC 50MG EXT REL TAB PO SCH (09:12)
[2019-10-23] MEDS: NICOTINE 14 MG/24 HR PATCH TD SCH (09:12)
--- NOTE | 2019-10-23 10:50 | Hospitalist Progress Note ---
Date of Service October 23, 2019 Assessment & Plan (1) Dental infection: (2) Sepsis: Present on admission with fever and tachycardia CT neck showed odontogenic infection with periapical lucency/abscess at the left mandibular second molar. Extensive phlegmonous change along the left mandible and cellulitis without convincing evidence of a definable odontogenic abscess at this time. 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 Continue metoprolol stable (7) Bipolar disorder: Continue Seroquel Normalized (8) Asthma: No signs of acute exacerbation Continue home inhalers Stable (9) DVT prophylaxis: SCDs, ambulate Disposition Possible discharge in 1 to 2 days Subjective 10/23/2019 Patient is seen and examined in medical floor Still complains of pain and swelling involving the left lower jaw area Denies any fever and/or chills Waiting to go for oral surgery this morning Review of Systems Review of Systems: All systems reviewed and are unremarkable except as noted below Ear, Nose, Mouth, Throat: + dental pain, + dental abscess and + pain with swallowing Physical Exam Physical Exam: Lying in bed comfortably Constitutional: well developed, well nourished and + obese Eyes: PERRL, conjunctivae normal, anicteric sclerae ENMT: Swelling left lower jaw area, increased temperature submandibular region, inflammation lower gum over the left side Neck: trachea midline, no thyromegaly Respiratory: normal respiratory effort; no respiratory distress Auscultation: lungs clear to auscultation bilaterally Cardiovascular: Rate/Rhythm: regular rate and regular rhythm Heart Sounds: no murmur Gastrointestinal (Abdomen): Inspection/Auscultation: abdomen normal to inspection and normal bowel sounds Results & Data Vital Signs (Past 12 Hours) Vital Signs Temp Pulse Pulse Resp BP Pulse Ox 10/23/19 09:13 66 10/23/19 08:56 68 10/23/19 07:00 36.7 C 46 L 18 114/65 96 10/23/19 04:00 36.7 C 47 L 18 127/73 97 10/23/19 00:30 52 L 10/22/19 23:00 36.8 C 59 L 16 127/86 97 Laboratory Results BMP 10/23/19 06:21 Sodium 141 Potassium 3.8 Chloride 109 H Carbon Dioxide 27 BUN 8 Creatinine 0.58 L Glucose 101 H Calcium 8.5 Medications Administered Current Inpatient Medications Acetaminophen (Tylenol) 650 mg PO Q4H PRN PRN Reason: pain/fever Stop: 11/19/19 20:44 Famotidine (Pepcid) 40 mg PO HS PENDING SALE TO [facility] Stop: 11/19/19 20:59 Last Admin: 10/22/19 21:08 Dose: 40 mg Documented by: Fluticasone/Vilanterol (Breo Ellipta 100/25 Mcg Inh) 1 puffs INH DAILY PENDING SALE TO [facility] Stop: 11/20/19 08:59 Last Admin: 10/23/19 09:11 Dose: 1 puffs Documented by: Hydroxyzine HCl (Vistaril) 50 mg PO TID PRN PRN Reason: Anxiety Stop: 11/19/19 20:44 Last Admin: 10/21/19 10:08 Dose: 50 mg Documented by: Ampicillin Sodium/Sulbactam Sodium 3,000 mg/ Sodium Chloride 108 mls @ 200 mls/hr IV Q6H PENDING SALE TO [facility]; Protocol Stop: 10/30/19 20:59 Last Infusion: 10/23/19 06:42 Dose: Infused Documented by: Acetaminophen (Ofirmev) 1,000 mg in 100 mls @ 400 mls/hr IV Q8H PENDING SALE TO [facility] Stop: 10/24/19 01:29 Last Admin: 10/23/19 09:11 Dose: Not Given Documented by: Dexamethasone Sodium Phosphate (2 mg/ Syringe) 0.5 mls @ 1 mls/min IV Q8H PENDING SALE TO [facility] Stop: 11/20/19 00:59 Last Admin: 10/23/19 09:12 Dose: 1 mls/min Documented by: Ketorolac Tromethamine (Toradol) 15 mg IV Q6H PRN PRN Reason: Pain Stop: 10/25/19 20:44 Last Admin: 10/22/19 15:32 Dose: 15 mg Documented by: Metoprolol Succinate (Toprol Xl) 50 mg PO DAILY PENDING SALE TO [facility] Stop: 11/20/19 08:59 Last Admin: 10/23/19 09:12 Dose: 50 mg Documented by: Miscellaneous (Remove Nicoderm Patch) 1 ea N/A DAILY@0859 PENDING SALE TO [facility] Stop: 11/20/19 08:58 Last Admin: 10/23/19 09:12 Dose: 1 ea Documented by: Morphine Sulfate (Morphine Sulfate) 4 mg IV Q6H PRN PRN Reason: Pain Stop: 11/03/19 20:44 Last Admin: 10/23/19 00:02 Dose: 4 mg Documented by: Nicotine (Nicoderm Cq) 14 mg TD QAM PENDING SALE TO [facility] Stop: 11/19/19 20:44 Last Admin: 10/23/19 09:12 Dose: Not Given Documented by: Potassium Phosphate (Phospha 250 Neutral [id number] Mg) 1 tab PO BID PENDING SALE TO [facility] Stop: 10/23/19 13:14 Last Admin: 10/23/19 09:12 Dose: 1 tab Documented by: Quetiapine Fumarate (Seroquel) 200 mg PO HS PENDING SALE TO [facility] Stop: 11/19/19 20:59 Last Admin: 10/22/19 21:08 Dose: 200 mg Documented by:
[2019-10-23] MEDS: KETOROLAC TROMETHAMINE 15 MG/ML VIAL IV PRN (13:23)
--- NOTE | 2019-10-23 14:17 | Anesthesiology Consultation ---
Date of Service October 23, 2019 Assessment & Plan (1) Encounter for pre-operative examination: Chart Review Chart Review: Acceptable Risk for Surgery and Patient NOT seen in Pre Admission Testing Consults Requested none History Surgery Operation Date: 10/23/19 07:10 Proposed Procedures p Extraction Infected Teeth - Eliezer Malloy DMD s Incision and Drainage Infection Teeth - Eliezer Malloy DMD Height/Weight Height: 5 ft 5 in Weight: 90 kg Allergies Allergy/AdvReac Type Severity Reaction Status Date / Time cephalexin [From Keflex] AdvReac Nausea Unverified 10/20/19 18:13 doxycycline AdvReac Nausea Unverified 10/20/19 18:13 sulfamethoxazole AdvReac Nausea Unverified 10/20/19 18:13 [From Bactrim] trimethoprim [From Bactrim] AdvReac Nausea Unverified 10/20/19 18:13 Medications Home Medications Medication Instructions Recorded Confirmed Last Taken clindamycin HCl 300 mg PO QID 10 Days #40 cap 10/19/19 10/20/19 Unknown hydroxyzine pamoate 50 mg PO TID PRN 10/19/19 10/20/19 Unknown metoprolol succinate 50 mg PO DAILY 10/19/19 10/20/19 Unknown quetiapine 200 mg PO HS 10/19/19 10/20/19 Unknown mometasone-formoterol [Dulera] 2 inh INHALATION BID 10/20/19 10/20/19 Unknown ranitidine HCl 300 mg PO HS 10/20/19 10/20/19 Unknown Active Medications Generic Name Dose Route Start Last Admin Trade Name Freq PRN Reason Stop Dose Admin Famotidine 40 mg 10/20/19 21:00 10/22/19 21:08 Pepcid PO 11/19/19 20:59 40 mg HS ABHIJEET Administration Fluticasone/Vilanterol 1 puffs 10/21/19 09:00 10/23/19 09:11 Breo Ellipta 100/25 Mcg Inh INH 11/20/19 08:59 1 puffs DAILY ABHIJEET Administration Hydroxyzine HCl 50 mg 10/20/19 20:45 10/21/19 10:08 Vistaril PO 11/19/19 20:44 50 mg TID PRN Administration Anxiety Ampicillin Sodium/Sulbactam 108 mls @ 200 mls/hr 10/20/19 21:00 10/23/19 13:11 Sodium 3,000 mg/ Sodium IV 10/30/19 20:59 100 mls/hr Chloride Q6H ABHIJEET Administration Protocol Acetaminophen 1,000 mg in 100 mls @ 400 mls/hr 10/21/19 01:30 10/23/19 09:11 Ofirmev IV 10/24/19 01:29 Not Given Q8H ABHIJEET Dexamethasone Sodium Phosphate 0.5 mls @ 1 mls/min 10/21/19 01:00 10/23/19 09:12 2 mg/ Syringe IV 11/20/19 00:59 1 mls/min Q8H ABHIJEET Administration Ketorolac Tromethamine 15 mg 10/20/19 20:45 10/23/19 13:23 Toradol IV 10/25/19 20:44 15 mg Q6H PRN Administration Pain Metoprolol Succinate 50 mg 10/21/19 09:00 10/23/19 09:12 Toprol Xl PO 11/20/19 08:59 50 mg DAILY ABHIJEET Administration Miscellaneous 1 ea 10/21/19 08:59 10/23/19 09:12 Remove Nicoderm Patch N/A 11/20/19 08:58 1 ea DAILY@0859 ABHIJEET Administration Morphine Sulfate 4 mg 10/20/19 20:45 10/23/19 12:09 Morphine Sulfate IV 11/03/19 20:44 4 mg Q6H PRN Administration Pain Nicotine 14 mg 10/20/19 20:45 10/23/19 09:12 Nicoderm Cq TD 11/19/19 20:44 Not Given QAM ABHIJEET Quetiapine Fumarate 200 mg 10/20/19 21:00 10/22/19 21:08 Seroquel PO 11/19/19 20:59 200 mg HS ABHIJEET Administration NPO Date Last Intake of Fluids: 10/23/19 Time Last Intake of Fluids: 09:00 Last Intake of Fluids Comment: sips with 2 pills Date Last Intake of Solids: 10/22/19 Time Last Intake of Solids: 18:00 Last Intake of Solids Comment: dinner- soft diet Past Family History Family History Grandfather Stroke Social History Smoking Status: Heavy tobacco smoker tobacco type: cigarettes Smoking cigarettes per day: 10 Do You Dip or Chew Tobacco: No Hx Alcohol Use: No Alcohol type: other Hx Substance Use: Yes substance use type: marijuana Last Used Substance: Unknown Physical Exam Vital Signs Last Vital Signs Temp 36.5 C 10/23/19 11:56 Pulse 76 10/23/19 11:56 Resp 16 10/23/19 11:56 BP 154/81 H 10/23/19 11:56 Pulse Ox 94 10/23/19 11:56 Testing Laboratory Results 10/21/19 06:30 10/23/19 06:21 PT 12.4 Seconds (9.0-12.0) H 10/20/19 17:00 INR 1.2 (0.9-1.1) H 10/20/19 17:00 APTT 27.7 Seconds (21.0-31.0) 10/20/19 17:00 Urine Color Yellow 10/21/19 05:37 Urine Appearance Clear (Clear) 10/21/19 05:37 Urine pH 7.0 (4.5-7.5) 10/21/19 05:37 Ur Specific [place] 1.019 (1.000-1.030) 10/21/19 05:37 Urine Protein Negative (Negative) 10/21/19 05:37 Urine Glucose (UA) Negative (Negative) 10/21/19 05:37 Urine Ketones Negative (Negative) 10/21/19 05:37 Urine Nitrite Negative (Negative) 10/21/19 05:37 Ur Leukocyte Esterase Negative (Negative) 10/21/19 05:37 10/20/19 17:09 Aerobic Blood Culture - Preliminary Blood No growth in Aerobic bottle after 48 hours. Anaerobic Blood Culture - Preliminary No growth in Anaerobic bottle after 48 hours. 10/20/19 17:00 Aerobic Blood Culture - Preliminary Blood No growth in Aerobic bottle after 48 hours. Anaerobic Blood Culture - Preliminary No growth in Anaerobic bottle after 48 hours. Electrocardiogram Date: 10/21/19 Findings: + NSR @ (94) Nonspecific T wave abnormality
[2019-10-23] MEDS ORDERED: fentaNYL citrate 100 MCG/2 ML VIAL ONE ×2 (16:57→18:22)
[2019-10-23] MEDS ORDERED: LIDOCAINE HCL 2% 2 ML VIAL/AMP(20MG/ML) INFIL ONE (16:57)
[2019-10-23] MEDS ORDERED: SUCCINYLCHOLINE CHLORIDE 20 MG/ML 10 ML VIAL ONE (16:57)
[2019-10-23] MEDS ORDERED: MIDAZOLAM HCL 1 MG/ML 2ML VIAL ONE (16:57)
[2019-10-23] MEDS ORDERED: PROPOFOL IV EMULSION 10 MG/ML 20 ML VIAL IV ONE ×2 (16:57→18:13)
[2019-10-23] MEDS ORDERED: BUPIVACAINE/EPINEPHRINE 0.5% 1:200,000 1.8 ML CARP ONE (17:03)
[2019-10-23] MEDS ORDERED: KETOROLAC 30 MG/ML VIAL IV PRN (17:04)
[2019-10-23] MEDS ORDERED: METOCLOPRAMIDE HCL INJ 5 MG/ML 2 ML VIAL IV PRN (17:04)
[2019-10-23] MEDS ORDERED: ONDANSETRON INJ 2 MG/ML 2 ML VIAL IV PRN (17:04)
[2019-10-23] MEDS ORDERED: CHLORHEXIDINE GLUCONATE 0.12% 480 ML ONE (17:04)
[2019-10-23] MEDS ORDERED: ePHEDrine sulfate 50 MG/ML AMP IV PRN (17:04)
[2019-10-23] MEDS ORDERED: ATROPINE SULFATE 0.1 MG/ML 10ML SYR IV PRN (17:04)
[2019-10-23] MEDS ORDERED: PROMETHAZINE HCL 12.5 MG in SODIUM CHLORIDE 0.9% 50 ML IV PRN (17:04)
--- NOTE | 2019-10-23 17:25 | History & Physical Bridge Note ---
Date of Service October 23, 2019 History & Physical Bridge Note I have examined the patient, reviewed the History & Physical and in the interval since the performance of the History & Physical I have noted the following changes of clinical significance: no changes noted We will plan extraction of # 18 and I&D retromandibular space infection OK for procedure
[2019-10-23] MEDS ORDERED: NEOSTIGMINE METHYLSULFATE 5 MG/5 ML SYR ONE (18:13)
[2019-10-23] MEDS ORDERED: GLYCOPYRROLATE 0.2 MG/ML VIAL ONE ×2 (18:13→18:30)
[2019-10-23] MEDS ORDERED: ROCURONIUM BROMIDE 10 MG/ML 5 ML VIAL ONE (18:13)
[2019-10-23] MEDS ORDERED: DEXAMETHASONE SOD INJ 4 MG/ML VIAL ONE (18:13)
[2019-10-23] MEDS ORDERED: ONDANSETRON INJ 2 MG/ML 2 ML VIAL ONE (18:13)
[2019-10-23] MEDS ORDERED: ePHEDrine sulfate 50 MG/ML SYR ONE (18:15)
--- NOTE | 2019-10-23 18:30 | Post Operative Brief Note ---
PG Immediate Post Op with CF Date of Surgery October 23, 2019 Pre & Post Diagnosis Operation Date: 10/23/19 07:10 Pre-Op Diagnosis: infected teeth , submandibular and mandibular space abscess Post-Op Diagnosis: infected teeth and (same) I identified the patient and participated in the time-out.: Yes Procedure Operation Date: 10/23/19 07:10 Actual Procedures p Extraction Infected Teeth x4 #5,18,29,30 (Not Applicable) - Eliezer Malloy DMD s Incision and Drainage of left submandular space/ mandibular space and subperiosteal space infection # 29,30 area (Left) - Eliezer Malloy DMD Surgeon Eliezer Malloy DMD Stummel Selector none Estimated Blood Loss 5 Findings Consistent with Post-Op Diagnosis Specimens Specimen Description: Culture of left submanibular space
[2019-10-23] MEDS ORDERED: HYDROmorphone INJ 1 MG/ML SYRINGE ONE (18:39)
[2019-10-23] MEDS: fentaNYL citrate 100 MCG/2 ML VIAL IV PRN ×2 (18:40→18:45)
--- NOTE | 2019-10-23 18:42 | Surgery Progress Note ---
Date of Service I did the I&D and removed a few abscessed teeth. Nancy did very well I will follow her as an out patient in my office in 7-10 days She will need to call for an appointment. [address] [phone] I would suggest an appropriate oral antibiotic and pain control. From my point of view she can be discharged tomorrow. Please call me if you have any questions. Good to work with you and your team. Eliezer Gama DMD October 23, 2019 Results & Data Vital Signs (Past 12 Hours) Vital Signs Temp Pulse Pulse Resp BP BP Pulse Ox 10/23/19 16:09 36.8 C 48 L 18 156/72 H 99 10/23/19 16:00 49 L 10/23/19 15:31 36.4 C L 55 L 18 136/82 96 10/23/19 11:56 36.5 C 76 16 154/81 H 94 10/23/19 09:13 66 10/23/19 08:56 68 10/23/19 07:00 36.7 C 46 L 18 114/65 96 PG Care Time/CCT Total # of Minutes Spent Total Time Spent with Patient: Total time spent is greater than 50% in coordination of care (as documented) at patient's floor/unit and/or counseling patient:
[2019-10-23] MEDS: HYDROmorphone INJ 2 MG/ML SYR/VIAL IV PRN ×6 (19:00→19:30)
--- NOTE | 2019-10-23 19:32 | Anesthesiology Progress Note ---
Date of Service October 23, 2019 Anesthesia Post Procedure Vital Signs Vital Signs: Temp Pulse Pulse Pulse Resp BP BP 10/23/19 19:25 82 20 160/92 H 10/23/19 19:15 52 L 16 115/74 10/23/19 19:05 75 18 118/67 10/23/19 18:55 56 L 17 117/86 10/23/19 18:45 77 20 150/91 H 10/23/19 18:35 36.6 C 72 16 142/91 H 10/23/19 16:09 36.8 C 48 L 18 156/72 H 10/23/19 16:00 49 L 10/23/19 15:31 36.4 C L 55 L 18 136/82 10/23/19 11:56 36.5 C 76 16 154/81 H 10/23/19 09:13 66 10/23/19 08:56 68 10/23/19 07:00 36.7 C 46 L 18 114/65 10/23/19 04:00 36.7 C 47 L 18 127/73 10/23/19 00:30 52 L 10/22/19 23:00 36.8 C 59 L 16 127/86 Pulse Ox 10/23/19 19:25 98 10/23/19 19:15 99 10/23/19 19:05 99 10/23/19 18:55 98 10/23/19 18:45 98 10/23/19 18:35 100 10/23/19 16:09 99 10/23/19 16:00 10/23/19 15:31 96 10/23/19 11:56 94 10/23/19 09:13 10/23/19 08:56 10/23/19 07:00 96 10/23/19 04:00 97 10/23/19 00:30 10/22/19 23:00 97 Pain Intensity Mouth: Pain Intensity: 7 Transfer of Care Handoff Completed per policy Notes Mental Status: alert / awake / arousable and participated in evaluation Patient Amnestic to Procedure: Yes Nausea / Vomiting: adequately controlled Pain: adequately controlled Airway Patency, RR, SpO2: stable & adequate BP & HR: stable & adequate Hydration State: stable & adequate Anesthetic Complications: no major complications apparent
[2019-10-23] MEDS: QUETIAPINE FUMARATE 200 MG TAB PO SCH (20:34)
[2019-10-23] MEDS: FAMOTIDINE 40 MG TABLET PO SCH (20:34)
[2019-10-24] MEDS: DEXAMETHASONE SOD PHOSPHATE 2 MG in SYRINGE 0 ML IV SCH ×3 (00:49→17:12)
[2019-10-24] MEDS: AMPICILLIN/SULBACTAM SOD 3,000 MG in 0.9 % SODIUM CHLORIDE 100 ML IV SCH ×2 (00:49→09:52)
[2019-10-24] MEDS: KETOROLAC TROMETHAMINE 15 MG/ML VIAL IV PRN (00:51)
[2019-10-24] MEDS: MoRPHine SULFATE 4 MG/ML 1 ML CARP\\VIAL IV PRN ×3 (04:50→17:54)
--- NOTE | 2019-10-24 08:33 | Anesthesiology Progress Note ---
Date of Service October 24, 2019 Anesthesia Post Procedure Vital Signs Vital Signs: Temp Pulse Pulse Pulse Pulse Resp BP 10/24/19 07:36 36.9 C 58 L 18 136/82 10/24/19 04:00 36.8 C 71 18 143/85 H 10/23/19 23:00 36.6 C 54 L 20 10/23/19 19:58 75 20 151/80 H 10/23/19 19:35 36.9 C 74 18 125/72 10/23/19 19:25 82 20 160/92 H 10/23/19 19:15 52 L 16 115/74 10/23/19 19:05 75 18 118/67 10/23/19 18:55 56 L 17 117/86 10/23/19 18:45 77 20 150/91 H 10/23/19 18:35 36.6 C 72 16 142/91 H 10/23/19 16:09 36.8 C 48 L 18 156/72 H 10/23/19 16:00 49 L 10/23/19 15:31 36.4 C L 55 L 18 136/82 10/23/19 11:56 36.5 C 76 16 154/81 H 10/23/19 09:13 66 10/23/19 08:56 68 BP Pulse Ox 10/24/19 07:36 95 10/24/19 04:00 97 10/23/19 23:00 117/65 96 10/23/19 19:58 99 10/23/19 19:35 99 10/23/19 19:25 98 10/23/19 19:15 99 10/23/19 19:05 99 10/23/19 18:55 98 10/23/19 18:45 98 10/23/19 18:35 100 10/23/19 16:09 99 10/23/19 16:00 10/23/19 15:31 96 10/23/19 11:56 94 10/23/19 09:13 10/23/19 08:56 Pain Intensity Mouth: Pain Intensity: 7 Notes Mental Status: alert / awake / arousable and participated in evaluation Patient Amnestic to Procedure: Yes Nausea / Vomiting: adequately controlled Pain: adequately controlled Airway Patency, RR, SpO2: stable & adequate BP & HR: stable & adequate Hydration State: stable & adequate Anesthetic Complications: no major complications apparent and Pt Satisfied with anesthetic care
[2019-10-24] MEDS ORDERED: IBUPROFEN 600 MG TAB PO PRN (09:08)
[2019-10-24] MEDS: METOPROLOL SUCC 50MG EXT REL TAB PO SCH (09:54)
[2019-10-24] MEDS: NICOTINE 14 MG/24 HR PATCH TD SCH (09:55)
[2019-10-24] MEDS: FLUTICASONE/VILANTEROL 100/25MCG 14 PUFFS/INHALER INH SCH (09:56)
[2019-10-24] MEDS: AMOXICILLIN/CLAVULANATE 875 MG TAB PO SCH ×2 (10:13→17:10)
[2019-10-24 15:22] VITALS: BP 129/72; PULSE 57; TEMP 97.9; O2SAT 95
--- NOTE | 2019-10-24 16:24 | Hospitalist Progress Note ---
Date of Service October 24, 2019 Assessment & Plan (1) Dental infection: (2) Sepsis: Present on admission with fever and tachycardia CT neck showed odontogenic infection with periapical lucency/abscess at the left mandibular second molar. Extensive phlegmonous change along the left mandible and cellulitis without convincing evidence of a definable odontogenic abscess at this time. Received Vanco and Zosyn in the ED, changed to IV Unasyn Has been on intravenous steroid Blood cx no growth Oral maxillofacial consulted-appreciate input and recommendation Status post IND for dental abscess Cleared by surgeon to go home if stable Advance diet as tolerated Likely be discharged this afternoon (3) Hypokalemia: EYES: Pupils round equal and react to light, extraocular movements full, no injection. 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 Continue metoprolol stable (7) Bipolar disorder: Continue Seroquel Normalized (8) Asthma: No signs of acute exacerbation Continue home inhalers Stable (9) DVT prophylaxis: SCDs, ambulate Disposition Possible discharge this afternoon Subjective 10/23/2019 Patient is seen and examined in medical floor Still complains of pain and swelling involving the left lower jaw area Denies any fever and/or chills Waiting to go for oral surgery this morning 10/24/2019 Patient is seen and examined in medical telemetry unit She is a status post removal of a few abscessed teeth lower left jaw Feels fine following surgery Will advance diet and if tolerated she will be going home this afternoon Review of Systems Review of Systems: All systems reviewed and are unremarkable except as noted below Ear, Nose, Mouth, Throat: + dental pain, + dental abscess and + pain with swallowing Physical Exam Physical Exam: Lying in bed comfortably Constitutional: well developed, well nourished and + obese Eyes: PERRL, conjunctivae normal, anicteric sclerae ENMT: Status post IND and removal of few abscessed teeth on left lower jaw Neck: trachea midline, no thyromegaly Respiratory: normal respiratory effort; no respiratory distress Auscultation: lungs clear to auscultation bilaterally Cardiovascular: Rate/Rhythm: regular rate and regular rhythm Heart Sounds: no murmur Gastrointestinal (Abdomen): Inspection/Auscultation: abdomen normal to inspection and normal bowel sounds Lymphatic: no cervical or axillary lymphadenopathy Results & Data Vital Signs (Past 12 Hours) Vital Signs Temp Pulse Resp BP Pulse Ox 10/24/19 15:22 36.6 C 57 L 19 129/72 95 10/24/19 12:00 36.8 C 58 L 20 145/85 H 92 10/24/19 10:09 64 10/24/19 07:36 36.9 C 58 L 18 136/82 95 Medications Administered Current Inpatient Medications Acetaminophen (Tylenol) 650 mg PO Q4H PRN PRN Reason: pain/fever Stop: 11/19/19 20:44 Amoxicillin/Clavulanate Potassium (Augmentin 875mg) 1 tab PO BIDM ABHIJEET Stop: 10/28/19 23:59 Last Admin: 10/24/19 10:13 Dose: 1 tab Documented by: Famotidine (Pepcid) 40 mg PO HS [facility] Stop: 11/19/19 20:59 Last Admin: 10/23/19 20:34 Dose: 40 mg Documented by: Fluticasone/Vilanterol (Breo Ellipta 100/25 Mcg Inh) 1 puffs INH DAILY [facility] Stop: 11/20/19 08:59 Last Admin: 10/24/19 09:56 Dose: 1 puffs Documented by: Hydroxyzine HCl (Vistaril) 50 mg PO TID PRN PRN Reason: Anxiety Stop: 11/19/19 20:44 Last Admin: 10/21/19 10:08 Dose: 50 mg Documented by: Dexamethasone Sodium Phosphate (2 mg/ Syringe) 0.5 mls @ 1 mls/min IV Q8H ABHIJEET Stop: 11/20/19 00:59 Last Admin: 10/24/19 10:10 Dose: 1 mls/min Documented by: Ibuprofen (Motrin) 600 mg PO Q8H PRN PRN Reason: Pain Stop: 11/23/19 09:07 Last Admin: 10/24/19 10:09 Dose: 600 mg Documented by: Metoprolol Succinate (Toprol Xl) 50 mg PO DAILY [facility] Stop: 11/20/19 08:59 Last Admin: 10/24/19 09:54 Dose: 50 mg Documented by: Miscellaneous (Remove Nicoderm Patch) 1 ea N/A DAILY@0859 [facility] Stop: 02/19/20 08:58 Last Admin: 10/24/19 09:56 Dose: Not Given Documented by: Morphine Sulfate (Morphine Sulfate) 4 mg IV Q6H PRN PRN Reason: Pain Stop: 11/03/19 20:44 Last Admin: 10/24/19 11:45 Dose: 4 mg Documented by: Nicotine ([facility]oderm Cq) [facility] [place]: 11/19/19 20:44 Last Admin: 10/24/19 09:55 Dose: 14 mg Documented by: Quetiapine Fumarate (Seroquel) 200 mg PO HS [facility] Stop: 11/19/19 20:59 Last Admin: 10/23/19 20:34 Dose: 200 mg Documented by:
--- NOTE | 2019-10-25 08:13 | Discharge Summary ---
Date of Service October 25, 2019 Admission HPI Per Admitting Provider 29-year-old female who presents to the ED for evaluation of dental pain. Patient reports symptoms been going on for the past 3 days. Evaluated in the ED yesterday and diagnosed with dental infection. She was placed on clindamycin however has not had any improvement in her symptoms. Patient has some difficulty opening her mouth. She also reports difficulty swallowing, chest pain, and shortness of breath however at the time my exam, patient is resting in bed in no acute distress. She reports running fevers of around 101. Has had some nausea with vomiting. Denies hematemesis and coffee-ground emesis. No abdominal pain or diarrhea. Denies lightheadedness, dizziness, diaphoresis, syncopal events. No urinary symptoms. In the ED, patient is febrile at 38.5 and tachycardic in the 120s. No leukocytosis. CT neck shows odontogenic infection with periapical lucency/abscess at the left mandibular second molar. Extensive phlegmonous change along the left mandible and cellulitis without convincing evidence of a definable odontogenic abscess at this time. CTA chest negative for PE. She is also mildly hypokalemic hypomagnesemic, hypophosphatemic. She was given IV Tylenol, IV Decadron, IV Zosyn, IV Vanco, IVF. Admission Exam Per Admitting Provider Constitutional: WD/WN, vitals as above no acute distress Eyes: PERRL, conjunctivae normal, anicteric sclerae ENMT: Ears: no external ear abnormality Nose: no external nose abnormality Mouth: + trismus and + poor dentition Edema noted to left mandibular region, no obvious intraoral abscess Neck: + submandibular swelling (left) Respiratory: normal respiratory effort, lungs clear to auscultation Cardiovascular: Rate/Rhythm: regular rhythm and + tachycardic (Heart rate low 100s) Vessels: normal peripheral pulses Extremities: no edema Gastrointestinal (Abdomen): normal bowel sounds, soft, nontender, no hepatosplenomegaly Musculoskeletal: no cyanosis or clubbing, extremities motor strength 5/5 Skin: no rashes, warm and dry Neurologic: PERRL, EOMI, accommodation nl, no face palsy, no dysarthria Psychiatric: A+Ox3, euthymic affect Principal Diagnosis s/p drainage of infection and extraction of infected teeth # 5,18,29,30 Discharge Exam Constitutional well developed, well nourished and + obese Eyes PERRL, conjunctivae normal, anicteric sclerae Neck trachea midline, no thyromegaly Respiratory normal respiratory effort; no respiratory distress Auscultation: lungs clear to auscultation bilaterally Cardiovascular Rate/Rhythm: regular rate and regular rhythm Heart Sounds: no murmur Gastrointestinal (Abdomen) Inspection/Auscultation: abdomen normal to inspection and normal bowel sounds Lymphatic no cervical or axillary lymphadenopathy Discharge Data Allergies Allergy/AdvReac Type Severity Reaction Status Date / Time cephalexin [From Keflex] AdvReac Nausea Unverified 10/20/19 18:13 doxycycline AdvReac Nausea Unverified 10/20/19 18:13 sulfamethoxazole AdvReac Nausea Unverified 10/20/19 18:13 [From Bactrim] trimethoprim [From Bactrim] AdvReac Nausea Unverified 10/20/19 18:13 Consultations 10/20/19 18:45 ED Decision to Admit Stat 10/20/19 20:45 Consult Oromaxillofacial Surgery Routine Procedures Performed Operation Date: 10/23/19 07:10 Actual Procedures p Extraction Infected Teeth x4(Not Applicable) - Eliezer Malloy DMD s Incision and Drainage of left submandular space (Left) - Eliezer Malloy DMD Ordered Studies 10/20/19 16:33 CT angio chest PE protocol Stat CT soft tissue neck w con Stat Hospital Course (1) Dental infection: (2) Sepsis: Present on admission with fever and tachycardia CT neck showed odontogenic infection with periapical lucency/abscess at the left mandibular second molar. Extensive phlegmonous change along the left mandible and cellulitis without convincing evidence of a definable odontogenic abscess at this time. Received Vanco and Zosyn in the ED, changed to IV Unasyn Has been on intravenous steroid Blood cx no growth Oral maxillofacial consulted-appreciate input and recommendation Status post IND for dental abscess Cleared by surgeon to go home if stable Advance diet as tolerated Likely be discharged this afternoon (3) Hypokalemia: EYES: Pupils round equal and react to light, extraocular movements full, no injection. 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 Continue metoprolol stable (7) Bipolar disorder: Continue Seroquel Normalized (8) Asthma: No signs of acute exacerbation Continue home inhalers Stable (9) DVT prophylaxis: SCDs, ambulate Disposition Possible discharge this afternoon Total Time Total Time Spent Total Time Spent (In Minutes): 35 minutes Total Time Includes: Examination of the Patient, Discharge Planning, Medication Reconciliation and Communication With Other Providers Discharge Plan Discharge Items Patient Disposition: Home - Self-Care Reason For Visit: DENTAL INFECTION Discharge Diagnosis: s/p drainage of infection and extraction of infected teeth # 5,18,29,30 Condition on Discharge: Good Activity: Resume your previous activity Bathing: No limitations Exercise/Sports: Gradually increase as tolerated Non-emergency contact: Surgeon Call non-emergency contact if: you have any medication questions, your symptoms worsen, your temperature is above 101.5, your wound has increased redness, your wound has increased drainage and your wound pain has increased Follow-up/Referrals: Eliezer Malloy DMD [Physician] - (Please make an appointment with Dr. Malloy in 7 to 10 days) Bud Thomas DO [Primary Care Provider] - 10/29/19 12:45 pm Diet: Regular Diet Comment: start with clear liquid then advance to full and then soft Addtl Attending Provider Instructions: Try ibuprofen 600 mg 3 times daily with food for pain control ADDITIONAL ACTIVITY RECOMMENDATIONS: * Outing teeth after every meal. It is very important to keep your mouth clean to prevent infection. SPECIAL CARE INSTRUCTIONS: * Keep ice on the side of your face for the next 24 to 36 hours. This will help keep the swelling down. * After 36 hours, apply heat (hot water bottle or heating pad) for the next two days, as often as possible. * Tomorrow start rinsing your mouth with 1/2 teaspoon salt in 8 ounces warm water. This rinse should be used every 4-6 hours. * You may experience slight nausea. To prevent this, never take your medication on an empty stomach. If nauseated, take small sips of kathrine jennifer until you feel better; then you may start on applesauce and toast. * Some swelling is common. It should gradually decrease within 4-5 days. * A certain amount of bleeding is to be expected. It is often possible to control mild oozing by placing folded gauze over the area and biting down for 30 minutes. If you are unable to control excessive bleeding, call Dr Malloy at [phone] * You may experience some discomfort for a few days. If pain or swelling increases, Dr Malloy Call office to set up a follow up appointment in 7-10 days after discharge [phone] Pending Studies at Discharge: Yes Studies:: C&S from I&D Stand-Alone Forms: My [facility], Smoking Cessation Medications and DC Order Prescriptions: New amoxicillin-pot clavulanate [Augmentin] 875-125 mg Tablet 1 tab PO BIDM 7 Days Qty: 14 RF: 0 nicotine 7 mg/24 hr Patch 24 Hour 14 mg transdermal QAM 30 Days Qty: 30 RF: 0 Continued metoprolol succinate 50 mg tablet extended release 24 hr 50 mg PO DAILY RF: 0 quetiapine 200 mg tablet 200 mg PO HS RF: 0 hydroxyzine pamoate 50 mg capsule 50 mg PO TID PRN (Reason: Anxiety) RF: 0 ranitidine HCl 300 mg tablet 300 mg PO HS RF: 0 Dulera 100-5 mcg/actuation HFA aerosol inhaler 2 inh INHALATION BID RF: 0 Discontinued clindamycin HCl 300 mg capsule 300 mg PO QID 10 Days Qty: 40 RF: 0 Discharge Orders: Discharge Order (Routine); Ordered 10/24/19 Ordered By: Romero Hart/Other Patient Handouts: Dental Abscess, ED Abscess Dental, ED Abscess Tooth Admission Data Admit Date/Time: 10/20/19 19:15 Attending Provider: Romero Rene Admit Provider: Willie Almeida Primary Care Provider: Bud Thomas Other Providers: Willie Almeida ; Faviola Maguire ; Romero Rene ; Eliezer Malloy Other Interventions: Discharge Summary Assessment (RN) Last Done: 10/24/19 16:57 DC Date/Time DO NOT enter until pt leaves facility: 10/24/19 18:17
--- NOTE | 2019-11-01 06:21 | Operative Report ---
DATE OF OPERATION: 10/23/2019 BRIEF HISTORY: The patient was admitted to the hospital on 10/20/2019 with acute left-sided facial swelling and trismus. She was in acute pain from a number of abscessed teeth. The teeth have caused an infection of the submandibular gland, plane on the left side, the subperiosteal area on the lower right side as well as the masseteric space. The patient had profound trismus and was able to open her mouth, no more than one fingerbreadth. She was admitted to the hospital. Appropriate IV therapy was started. After approximately 48 hours, the patient was ready to have an incision and drainage as the infection became more fluctuant. ADMITTING DIAGNOSIS: Acute facial infection from infected teeth into the submandibular, the subperiosteal and masseteric space. POSTOPERATIVE DIAGNOSIS: Acute facial infection from infected teeth into the submandibular, the subperiosteal and masseteric space. OPERATION: Incision and drainage of multiple facial planes, extraction of teeth #5, 18, 29 and 30. OPERATION IN DETAIL: After this patient was cleared to undergo general anesthesia, he was brought down to the operating room and placed under general anesthesia via an orotracheal intubation. After adequate anesthesia was obtained, the patient was prepped in the usual manner and the anesthetic tube was brought out to the right side. At this time, an oropharyngeal throat pack was placed. A bite block was positioned to secure the tube and to keep the mouth open. Prior to placing the patient under anesthetic, we did a timeout to ensure that we indeed had the right patient, the right equipment, antibiotic and everything was checked out. Everyone agreed and the procedure now began. At this time, the facial area was prepped in the usual manner. I turned my attention first to drain the abscess of the subperiosteal area. With the use of a 15 blade, a long incision was made from the external oblique ridge on the left side across the external oblique ridge around the necrotic carious teeth of teeth #29 and 30. Now using a periosteal elevator, I was able to reflect the mucoperiosteal tissue. By doing so, copious amounts of very thick pussy discharge was expressed. At this time, a culture for aerobic and anaerobic bacteria was taken. I extended the incision posteriorly into the area between the pterygoid muscles and the masseteric muscles. I then opened up into the mandibular space. While doing so, more pus was extruded from this area. As a matter of fact, this pocket had the most pus causing the severe muscle reaction and the severe trismus. The last plane that I evacuated was the submandibular site. To enter this side, I reflected the mucoperiosteal to the inferior border of the mandible and then placed a small hemostat. I opened up the hemostat and a few more pockets of pus were encountered. At this time, I turned my attention to removing tooth #29 and 30. These teeth were very necrotic and were easily removed with a dental forceps. By removing tooth #30, I was able to get more pus extruded through the socket. I felt that we had very good drainage and I did not need any external incisions or the need for a [place] drain. I spent a great deal of time irrigating the area with a lot of normal saline to ensure that we had good drainage of the area. I then sutured the area closed very loosely with the use of a 2-0 chromic suture. I felt that we had good drainage through the socket. As I palpated the left submandibular gland area, we could see more pus extruding through the socket. I irrigated the area once again to ensure that all pockets of pus were evacuated. At this time, I turned my attention to removing 2 other necrotic teeth that would be tooth #18 and tooth #5. Once these teeth were removed, there was some slight drainage coming from those sockets as well, but please understand that the tooth that caused most of this problem was tooth #18 as it was involved directly with the acute infection. At this time, I felt that we completed all of our surgical procedures. The patient was not having any bleeding problems and drainage was relatively well controlled. An orogastric tube was placed and we evacuated the contents of the stomach. At this time, all bleeding and hemostasis was in control. Gauze dressing was applied on both right and left sides as the tube was placed in the middle. At this time, the anesthesia department took control of the patient. They allowed the patient to recover in the usual manner. She was breathing satisfactory with all vital signs stable. When she met criteria for extubation, she was extubated. The gauze was changed as she was brought to the recovery room, breathing in satisfactory condition with all vital signs stable and properly monitored en route. I evaluated the patient in the recovery room, she was doing quite well. Her pain was moderate, but was controlled with the medication. The plan was to have her return to her room in the hospital and discharge her the next day. She will be maintained on oral antibiotics and pain medication as per the hospitalist. She has an appointment in my office on Monday, the of October 2019 for followup. The patient was given explicit instructions on how to care for herself. She has my contact information and my office information. I feel that if the patient follows our instructions to decrease her smoking habit, follow our instructions with oral hygiene, massage and jaw exercises that she will have an uneventful recovery. Again, the encounter was that incision and drainage of multiple facial planes on the left side of the mandible involving the subperiosteal, the submandibular and the masseteric space, extraction of tooth #18 as well as tooth #29, 30 and tooth #5. I attest to the content of the Intraoperative Record and any orders documented therein. Any exception s are noted below.
== END 2019-10-24 18:17 | disposition home or self-care (01) | DRG 855 ==
LOC: ED 16:10 → SUATTDRO 19:15 → 2W 19:15

== ENCOUNTER 2020-07-11 09:59 | Observation (INO) ==
[~2020-07-11 09:59] MED LIST changes: -ASPEC81 PO; -GABA-113 PO; -KPP/1000 PO; +NIFEdipine 10 MG CAP PO SCH; -ONDA4TAB46 PO; -QUET1TAB10 PO; -QUET1TAB13 PO; -RTL20 PO; -VENL75TA4 PO
[2020-07-11] MEDS: LACTATED RINGER'S 1,000 ML IV PRN ×2 (11:30→16:22)
[2020-07-11] MEDS ORDERED: NIFEdipine 10 MG CAP PO ONE ×2 (11:30→15:15)
[2020-07-11 11:42] LABS: Amphetamines+Metham, Urine Neg (Neg); Barbiturates, Urine Neg (Neg); Benzodiazepine, Urine Neg (Neg); Cocaine, Urine Neg (Neg); MDMA (Ecstacy), Urine Neg (Neg); Methadone, Urine Neg (Neg); Opiate, Urine Neg (Neg); Phencyclidine, Urine Neg (Neg)
--- NOTE | 2020-07-11 11:50 | History and Physical Report ---
DATE OF ADMISSION: 07/11/2020 CHIEF COMPLAINT: Intrauterine at 34 weeks 4 days, right-sided pelvic pain. HISTORY OF PRESENT ILLNESS: The patient is a 3, para 2. She has a complicated history. She has a history of blood clots, has a history of early delivery. He has a history of opiate abuse and she had a repair of her tricuspid valve open heart surgery at [facility] and this was secondary to endocarditis. Present , her due date is 08/18/2020. It has been well dated. Her present medications beside vitamins are Amber shot once a week and she is on Lovenox. Her obstetrical history is as follows; in 2010, she delivered a 6 pound boy, spontaneous vaginal delivery at 35 weeks, 2 hours of labor, pushed like 15 minutes. In 2014, she had a girl, 6+ pounds at 37 weeks. She stated she did not have Amber shots with this and she was delivered via , she does not know why. She started this morning with right-sided flank pain. She denies any loss of appetite or nausea. The pain did not radiate. It was not associated with any bleeding or leakage of fluid. She said throughout the day, it got worse. She came to the Emergency Room for evaluation. ALLERGIES: She has no known drug allergies. PAST SURGICAL HISTORY: She had tonsillectomy and adenoidectomy. She had a for her second child and she had open heart surgery in 2014 at [facility] for repair of a tricuspid valve, which was damaged by endocarditis. SOCIAL HISTORY: She is a half a pack a day smoker for 10 years. No history of alcohol intake. She works at [employer]. FAMILY HISTORY: She has 2 children in good health. Mom, 64, in good health. Father, 59, in good health. Two sisters in good health. REVIEW OF SYSTEMS: HEAD: No symptoms of frequent or severe headaches. EYES: No symptoms of blurred vision or double vision. EARS: No symptoms of frequent ear infections or difficulty hearing. PHYSICAL EXAMINATION: GENERAL: Well-developed, well-nourished 30-year-old white female, alert, oriented x3 and cooperative. EYES: Conjunctivae are pink. HEART: Had regular rhythm. S1, S2 are normal. There was a midline scar on her chest. LUNGS: Clear to auscultation and percussion. ABDOMEN: Consistent in size with a 34+ week gestational size fetus. There was a well-healed Pfannenstiel scar. There was no CVA tenderness. MUSCULOSKELETAL: No calf tenderness. PELVIC: Revealed a vertex presentation well applied to the cervix. Cervix was closed. IMPRESSIONS OF THIS CASE: Intrauterine at 34 weeks 4 days, possible premature labor. History of valvular heart damage due to endocarditis with an open heart surgery, status post tonsillectomy and adenoidectomy, status post previous section.
[2020-07-11] MEDS ORDERED: BETAMETH SOD PHOS/ACETATE IA 6 MG/ML IM STA (17:42)
--- NOTE | 2020-07-12 02:10 | Discharge Summary (DS) ---
The patient was admitted with recurrent right lower quadrant pain since early in the morning, she had no symptoms of decreased appetite or nausea. She was told to come in for evaluation. The patient has a complicated history. She had open heart surgery for repair of tricuspid valve after she had endocarditis. She also has a history of premature labor with her first delivery and she is on [place] one shot every week. She has a history of blood clots and she is on Lovenox 1 shot daily. She was admitted, she was placed on a monitor. heart rate tracing was excellent. She is having sporadic contractions, she states she feels them. On admission, head was well applied to the cervix. Anterior os of the cervix was closed. We rechecked her 8 hours later, there was no change in her dilatation. We offered to send her to [place] for observation. She said she would prefer to just go home, so we sent her home with Sarahardia to take 1 tablet every 4-6 hours and gave her a shot of Celestone and told her to come back tomorrow for another shot of Celestone.
[2020-07-14 23:42] LABS: Marijuana Quant, GCMS Urine 847 ng/mL (<5)
== END 2020-07-11 18:25 | disposition home or self-care (01) ==
LOC: OPB 09:59 → 4S1 09:59

== ENCOUNTER 2022-11-04 12:36 | Observation (INO) ==
[2022-11-04] MEDS ORDERED: ONDANSETRON INJ 2 MG/ML 2 ML VIAL IV STA (13:49)
[2022-11-04] MEDS ORDERED: SODIUM CHLORIDE 0.9% 1000ML 1,000 ML IV ONE (13:49)
--- NOTE | 2022-11-04 13:56 | Emergency Department Note ---
History of Present Illness General Chief complaint: Referred by Doctor Stated complaint: SOB, ABNORMAL EKG Time Seen by Provider: 11/04/22 13:40 Source: patient, RN notes reviewed and old records reviewed Mode of arrival: ambulatory Limitations: no limitations History of Present Illness Maximum Pain Intensity: 3 This patient is a 32-year-old female comes in with flulike symptoms for the last several days. This is complicated by her complex medical history. She said 5 days ago she has some nausea and vomiting with yellowish phlegm she has had some tactile fevers off-and-on. She denies chest pain per se but has had more palpitations and racing at times she has had diffuse body aches no diarrhea she saw her primary doctor sent her over today. She has had some EKG abnormalities. 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 She does feel short of breath at times no cough. She has some right-sided hip pain 2 days ago but none now. No sick contacts. No diarrhea. No blood or melena in her stool. Home Medications Medication Instructions Recorded Confirmed Type albuterol sulfate 90 mcg/actuation 2 puff inhalation QID PRN Wheezing 02/17/20 11/04/22 History aerosol inhaler (Ventolin HFA) fluticasone propionate 110 1 puff inhalation BID 03/11/21 11/04/22 History mcg/actuation HFA aerosol inhaler (Flovent HFA) fluticasone propionate 50 2 spray intranasal QAM PRN 03/11/21 11/04/22 History mcg/actuation nasal Shortness Of Breath Or Wheezing spray,suspension (Flonase Allergy Relief) Medical Marijuana 1 dose inhalation UD 06/01/21 11/04/22 History medroxyprogesterone 150 mg/mL 150 mg IM Q3M 06/01/21 11/04/22 History intramuscular suspension (Depo-Provera) buprenorphine 8 mg-naloxone 2 mg 2 tab sublingual DAILY 09/10/21 11/04/22 History sublingual tablet hydroxyzine pamoate 25 mg capsule 25 mg PO QID PRN Anxiety 09/10/21 11/04/22 History ipratropium 0.5 mg-albuterol 3 mg 3 ml inhalation Q4H PRN wheezing 09/10/21 11/04/22 Rx (2.5 mg base)/3 mL nebulization #90 mL soln pantoprazole 40 mg tablet,delayed 40 mg PO QAM 09/10/21 11/04/22 History release (Protonix) amoxicillin 500 mg capsule 2,000 mg PO DIRECTED PRN Dental 11/04/22 11/04/22 History procedure oxybutynin chloride 10 mg 10 mg PO DAILY 11/04/22 11/04/22 History tablet,extended release 24 hr topiramate 50 mg tablet 50 mg PO BID 11/04/22 11/04/22 History ursodiol 300 mg capsule 300 mg PO BID 11/04/22 11/04/22 History Allergies Allergy/AdvReac Type Severity Reaction Status Date / Time cephalexin [From Keflex] AdvReac Mild Nausea Verified 11/04/22 15:43 doxycycline AdvReac Mild Nausea Verified 11/04/22 15:43 sulfamethoxazole AdvReac Mild Nausea Verified 11/04/22 15:43 [From Bactrim] trimethoprim [From Bactrim] AdvReac Mild Nausea Verified 11/04/22 15:43 Past Med/Surg History Medical History Alcohol abuse Patient denies Anxiety Asthma PRN inhalers Bipolar disorder No medications Bronchopneumonia Chronic back pain Cough with hemoptysis Depression No medications Drug abuse Opiods, Methamphetamine. Patient reports she has been "clean" for 2 years. She currently use medical marijuana that is prescribed. 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 She was doing "Speed" at the time of MA, per the patient. Odontogenic infection of jaw Opioid dependence in remission Pneumonitis Post traumatic stress disorder Seizure NO MEDS -- LAST SEIZURE JULY (TOWARDS THE END) 2017. PSEUDOTREMORS. No medical. Smoker (spontaneous vaginal delivery) 02/15/2009 Syncope Tobacco abuse Smoke 1/2 PPD Surgical History H/O tricuspid valve replacement 2015 History of adenoidectomy History of section History of cholecystectomy History of colonoscopy History of esophagogastroduodenoscopy (EGD) History of primary section Patient is unsure of why she had a . Reports "a lot of bleeding" History of primary section History of tonsillectomy S/P tricuspid valve repair 2014 Family History Grandfather Stroke Heart disease Mother Hypertension Heart disease Father Hypertension Social History Smoking Status: Current some day smoker Tobacco Type: E-cigarettes / Vaping packs per day: 1; Cigarettes Per Day: 10; Second Hand Exposure: Yes; Hx Alcohol Use: No Hx Substance Use: Yes Last Used Substance: Unknown Last Used Substance Other:: 2 years ago - opiates, methamphetamine. Substance Use Type Other:: Medical marijuana - [facility]. 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 No present blood thinners. No pain or swelling in her legs at Social history does not smoke or drink or use drugs with exception of medical marijuana she uses for chronic pain and PTSD Review of Systems A total of 10 systems reviewed and were otherwise negative Physical Exam Vital Signs Vital Signs - 24 hr 11/04/22 12:40 Temperature 36.8 C Temperature Source Temporal Artery Scan Pulse Rate 71 Respiratory Rate 12 Blood Pressure 148/89 H Blood Pressure Mean 108 Pulse Oximetry 100 Sepsis Recent Fever Within 48 Hours No Sepsis New/Unexplained Change in Mental Status No Sepsis Action Taken by Nursing No Action Required General: Well developed well nourished [id number] young female who appears in no acute distress, breathing comfortably on room air. Normal speech HEENT: Normal cephalic atraumatic. Pupils are equal round and reactive to light. Extraocular movements are intact. Oropharynx is pink with moist mucous membranes. No swelling of the mouth lips or tongue. Neck: Supple with a midline trachea. No meningeal signs or stiffness, no JVD or bruits. No Stridor. Chest: Clear to auscultation bilaterally. No wheezes or rhonchi. No increased work of breathing. Heart: Regular rate and rhythm without murmurs or gallops. Abdomen: Soft nontender, nondistended without rebound guarding or rigidity. Extremities: No cyanosis clubbing or edema. No calf tenderness or assymetry Spine/Back. Non tender to palpation. No CVA tenderness Skin: Good turgor without rashes. Neurologic exam: Cranial nerves two through 12 are intact. Motor and sensation are intact and symmetrical throughout. Course Administered Medications Discontinued Medications Sodium Chloride (Nss 1000ml) 1,000 mls @ 999 mls/hr IV .Q1H1M ONE Stop: 11/04/22 14:49 Last Infusion: 11/04/22 15:43 Dose: 0 mls/hr Documented By: Admin: 11/04/22 14:32 Dose: 999 mls/hr Documented By: DONTAE Ondansetron HCl (Ondansetron Inj 2 Mg/Ml 2 Ml Vial) 4 mg IV NOW STA Stop: 11/04/22 13:50 Last Admin: 11/04/22 14:32 Dose: 4 mg Documented By: DONTAE Medical Decision Making Differential Diagnosis COVID, viral illness, cardiac disease, URI, endocarditis, PE, acute coronary syndrome, arrhythmia, dehydration, electrolyte or metabolic abnormality, sepsis Medical Records Attestation: I reviewed the patient's medical records. Home Medications Current Medication List: was personally reviewed by me Laboratory Data Attestation: I reviewed the patient's lab results. 11/04/22 14:23 11/04/22 14:23 Lab Results 11/04/22 11/04/22 11/04/22 Range/Units 14:23 14:23 14:23 WBC 4.85 (4.8-10.8) K/ul RBC 4.47 (4.20-5.40) M/uL Hgb 14.3 (12.0-16.0) g/dl Hct 42.1 (37.0-47.0) % MCV 94.2 (80.0-100.0) fL MCH 32.0 (25.0-34.0) pg MCHC 34.0 (32.0-36.0) g/dL RDW Std Deviation 42.3 (36.4-46.3) fL RDW Coeff of Des 12.2 (11.5-14.5) % Plt Count 187 (130-400) K/uL MPV 10.8 (9.4-12.4) fL Immature Gran % (Auto) 0.2 % Neut % (Auto) 48.1 % Lymph % (Auto) 42.9 % [place] % (Auto) 7.8 % Eos % (Auto) 0.4 % Baso % (Auto) 0.6 % Neut # (Auto) 2.33 (1.40-6.50) K/uL Lymph # (Auto) 2.08 (1.2-3.4) K/uL [place] # (Auto) 0.38 (0.11-0.59) K/uL Eos # (Auto) 0.02 (0-0.50) K/uL Baso # (Auto) 0.03 (0-0.2) K/uL Immature Gran # (Auto) 0.01 (0.01-0.20) K/uL PT 11.7 (9.0-12.0) Seconds INR 1.1 (0.9-1.1) APTT 26.1 (21.0-31.0) Seconds PTT Ratio 0.9 D-Dimer 280 (0-500) ug/L FEU Sodium 141 (136-145) mmol/L Potassium 3.8 (3.5-5.1) mmol/L Chloride 109 H (98-107) mmol/L Carbon Dioxide 24 (21-32) mmol/L Anion Gap 8 (3-11) BUN 12 (6-23) mg/dl Creatinine 0.79 (0.6-1.2) mg/dl Est Cr Clr Drug Dosing 92.8 ml/min Est GFR ( Amer) 115.6 ml/min Est GFR (Non-Af Amer) 99.8 ml/min BUN/Creatinine Ratio 15.2 (10-20) Glucose 89 (70-99(Fasting)) mg/dl Lactate (0.4-2.0) mmol/L Calcium 10.3 H (8.5-10.1) mg/dl Total Bilirubin 0.6 (0.2-1.0) mg/dl AST 20 (13-39) U/L ALT 19 (7-52) U/L Alkaline Phosphatase 87 (34-104) U/L Troponin I High Sens 2.7 (0-14) pg/ml Total Protein 7.0 (6.0-8.3) gm/dl Albumin 4.7 (3.4-5.0) gm/dl Globulin 2.3 L (2.5-4.0) gm/dl Albumin/Globulin Ratio 2.0 (0.9-2) HCG, Qual (Negative) Adenovirus (PCR) (NotDetected) B. pertussis DNA (PCR) (NotDetected) B.parapertussis DNA PCR (NotDetected) C. pneumoniae DNA (PCR) (NotDetected) Coronavirus OC43 (PCR) (NotDetected) Coronavirus HKU1 (PCR) (NotDetected) Coronavirus 229E (PCR) (NotDetected) SARS-CoV-2 (PCR) (NotDetected) Coronavirus NL63 (PCR) (NotDetected) Human Metapneumovir PCR (NotDetected) Influenza Type A (PCR) (NotDetected) Influenza Type B (PCR) (NotDetected) M. pneumoniae (PCR) (NotDetected) Parainfluenza 1 (PCR) (NotDetected) Parainfluenza 2 (PCR) (NotDetected) Parainfluenza 3 (PCR) (NotDetected) Parainfluenza 4 (PCR) (NotDetected) RSV (PCR) (NotDetected) Entero/Rhino (PCR) (NotDetected) 11/04/22 11/04/22 11/04/22 Range/Units 14:23 14:23 14:41 WBC (4.8-10.8) K/ul RBC (4.20-5.40) M/uL Hgb (12.0-16.0) g/dl Hct (37.0-47.0) % MCV (80.0-100.0) fL MCH (25.0-34.0) pg MCHC (32.0-36.0) g/dL RDW Std Deviation (36.4-46.3) fL RDW Coeff of Des (11.5-14.5) % Plt Count (130-400) K/uL MPV (9.4-12.4) fL Immature Gran % (Auto) % Neut % (Auto) % Lymph % (Auto) % [place] % (Auto) % Eos % (Auto) % Baso % (Auto) % Neut # (Auto) (1.40-6.50) K/uL Lymph # (Auto) (1.2-3.4) K/uL [place] # (Auto) (0.11-0.59) K/uL Eos # (Auto) (0-0.50) K/uL Baso # (Auto) (0-0.2) K/uL Immature Gran # (Auto) (0.01-0.20) K/uL PT (9.0-12.0) Seconds INR (0.9-1.1) APTT (21.0-31.0) Seconds PTT Ratio D-Dimer (0-500) ug/L FEU Sodium (136-145) mmol/L Potassium (3.5-5.1) mmol/L Chloride (98-107) mmol/L Carbon Dioxide (21-32) mmol/L Anion Gap (3-11) BUN (6-23) mg/dl Creatinine (0.6-1.2) mg/dl Est Cr Clr Drug Dosing ml/min Est GFR ( Amer) ml/min Est GFR (Non-Af Amer) ml/min BUN/Creatinine Ratio (10-20) Glucose (70-99(Fasting)) mg/dl Lactate 0.6 (0.4-2.0) mmol/L Calcium (8.5-10.1) mg/dl Total Bilirubin (0.2-1.0) mg/dl AST (13-39) U/L ALT (7-52) U/L Alkaline Phosphatase (34-104) U/L Troponin I High Sens (0-14) pg/ml Total Protein (6.0-8.3) gm/dl Albumin (3.4-5.0) gm/dl Globulin (2.5-4.0) gm/dl Albumin/Globulin Ratio (0.9-2) HCG, Qual Negative (Negative) Adenovirus (PCR) Not Detected (NotDetected) B. pertussis DNA (PCR) Not Detected (NotDetected) B.parapertussis DNA PCR Not Detected (NotDetected) C. pneumoniae DNA (PCR) Not Detected (NotDetected) Coronavirus OC43 (PCR) Not Detected (NotDetected) Coronavirus HKU1 (PCR) Not Detected (NotDetected) Coronavirus 229E (PCR) Not Detected (NotDetected) SARS-CoV-2 (PCR) Not Detected (NotDetected) Coronavirus NL63 (PCR) Not Detected (NotDetected) Human Metapneumovir PCR Not Detected (NotDetected) Influenza Type A (PCR) Not Detected (NotDetected) Influenza Type B (PCR) Not Detected (NotDetected) M. pneumoniae (PCR) Not Detected (NotDetected) Parainfluenza 1 (PCR) Not Detected (NotDetected) Parainfluenza 2 (PCR) Not Detected (NotDetected) Parainfluenza 3 (PCR) Not Detected (NotDetected) Parainfluenza 4 (PCR) Not Detected (NotDetected) RSV (PCR) Not Detected (NotDetected) Entero/Rhino (PCR) Not Detected (NotDetected) Imaging Data Attestation: I personally reviewed and interpreted this imaging study as follows: My Impression: Chest x-rayno acute infiltrate, failure, pneumothorax seen per my interpretation Radiologist's Impression: Chest X-Ray 11/04/22 12:45 XR chest 1V portable HISTORY: Chest pain, nonspecific COMPARISON: Chest 09/10/2021. FINDINGS: Stable small linear scarlike densities within the right lung base. Otherwise, lungs are clear. The heart is normal in size. No pleural effusions. No pneumothorax. There are poststernotomy changes again noted. IMPRESSION: No significant change compared to the prior study. No acute process. ACT 112: Negative or not required by law. Electronically signed by: Eusebio Tolentino M.D. 11/04/2022 2:39 PM ECG Data Attestation: I personally reviewed and interpreted this ECG as follows: Indication: + chest pain and + palpitations Rate (beats per minute): 82 Rhythm: + normal sinus ECG Intervals/blocks: + Incomplete right bundle branch block, + Normal QT and + Normal TN ECG [place]: + Normal ECG ST segments: + Normal ST segments ECG Findings: + Poor R wave progression and + Other (Nonspecific T wave abnormalities in V4 through 6); no PACs Comparison ECG Date: from (09/10/21) Change: the following changes noted (Nonspecific T wave abnormalities are now present in V4 through V6) Additional Comments: EKG #2: Sinus bradycardia rate of 45. No acute ischemic changes or ectopy. Co mpared to EKG #1 the rate has decreased and also the T waves are no longer nonspecific, MDM Narrative This patient comes in as described above she does have a complex medical history as outlined above. Given that she did require an extensive work-up she does look well and is stable vital signs here. EKG was obtained. IV team came and established an IV and got blood work on her. She was hydrated 1 L IV normal saline bolus. She was reassessed frequently. She remained hemodynamically stable and had no fever here. She has no fever or white count to suggest infection lactic acid is unremarkable and not elevated. Her troponin is negative initially. Her D-dimer is also within normal limits which makes PE unlikely. EKG shows no definite ischemic changes there is some nonspecific T wave abnormalities laterally. I did a second EKG and it shows some sinus bradycardia and the T waves appear improved. The patient's was normotensive during this. I did further review her chart and she was actually seen by her regional sales associate Dr. Muñoz 2 days ago and had an echo. There was just mild TR. She had this all done for preoperative clearance. Reading the note it sounds like she checked out okay from a cardiac standpoint. She has been having the shortness of breath which was noted then and viral type symptoms. Her bio fire was actually negative here. Given her complex medical history I have done blood cultures I do not find any evidence of endocarditis at this point but I do think she should be further observed in the hospital. [facility] and talk to them at length about this as well. They saw her in the ER for these measures Continuous cardiac monitoring: Orders placed in EMR for continuous security monitor. On pulm interpretation patient noted to be in normal sinus rhythm with a rate of of 82 Impression & Plan Chest pain, S/P tricuspid valve repair, History of pulmonary embolism, Flu-like symptoms, Shortness of breath, Lab test negative for COVID-19 virus Discharge Plan Visit Data Chief Complaint: Referred by Doctor Stated Complaint: SOB, ABNORMAL EKG ED Provider: Raul Kenny Discharge Problem: Chest pain, S/P tricuspid valve repair, History of pulmonary embolism, Flu-like symptoms, Shortness of breath, Lab test negative for COVID-19 virus Forms Stand Alone Forms: My [facility] Prescriptions Prescriptions: No Action albuterol sulfate [Ventolin HFA] 90 mcg/actuation Hfa Aerosol Inhaler 2 puff INHALATION QID PRN (Reason: Wheezing) pantoprazole [Protonix] 40 mg Tablet,Delayed Release (Dr/Ec) 40 mg PO QAM hydroxyzine pamoate 25 mg capsule 25 mg PO QID PRN (Reason: Anxiety) buprenorphine-naloxone [Suboxone] 8-2 mg Tablet, Sublingual 2 tab SUBLINGUAL DAILY ipratropium-albuterol 0.5 mg-3 mg(2.5 mg base)/3 mL solution for nebulization 3 ml inhalation Q4H PRN (Reason: wheezing) Qty: 90 0RF amoxicillin 500 mg capsule 2,000 mg PO DIRECTED PRN (Reason: Dental procedure) Rx Instructions: Take 4 caps 1 hour prior to dental procedures/exam. ursodiol 300 mg capsule 300 mg PO BID topiramate 50 mg tablet 50 mg PO BID oxybutynin chloride 10 mg tablet extended release 24hr 10 mg PO DAILY fluticasone propionate [Flonase Allergy Relief] 50 mcg/actuation spray,suspension 2 spray INTRANASAL QAM PRN (Reason: Shortness Of Breath Or Wheezing) fluticasone propionate [Flovent HFA] 110 mcg/actuation HFA aerosol inhaler 1 puff INHALATION BID medroxyprogesterone [Depo-Provera] 150 mg/mL suspension 150 mg IM Q3M Medical Marijuana 1 dose inhalation UD Rx Instructions: Patient vapes Referrals Referrals: Bud Thomas DO [Primary Care Provider] -
--- NOTE | 2022-11-04 14:41 | XRay Report ---
XR chest 1V portable HISTORY: Chest pain, nonspecific COMPARISON: Chest 09/10/2021. FINDINGS: Stable small linear scarlike densities within the right lung base. Otherwise, lungs are priyanka ar. The heart is normal in size. No pleural effusions. No pneumothorax. There are poststernotomy marlow ges again noted. IMPRESSION: No significant change compared to the prior study. No acute process. ACT 112: Negative or not required by law. Electronically signed by: Eusebio Tolentino M.D. 11/04/2022 2:39 PM
[2022-11-04 14:47] LABS: Basophils # (auto) 0.03 K/uL (0-0.2); Basophils % (auto) 0.6 %; Eosinophils # (auto) 0.02 K/uL (0-0.50); Eosinophils % (auto) 0.4 %; Hematocrit (blood only) 42.1 % (37.0-47.0); Hemoglobin 14.3 g/dl (12.0-16.0); Immature Granulocytes # (auto) 0.01 K/uL (0.01-0.20); Immature Granulocytes % (auto) 0.2 %; Lymphocytes # (auto) 2.08 K/uL (1.2-3.4); Lymphocytes % (auto) 42.9 %; Mean Corpuscular Volume 94.2 fL (80.0-100.0); Mean Platelet Volume 10.8 fL (9.4-12.4); Monocytes # (auto) 0.38 K/uL (0.11-0.59); Monocytes % (auto) 7.8 %; Neutrophils # (auto) 2.33 K/uL (1.40-6.50); Neutrophils % (auto) 48.1 %; Platelet Count 187 K/uL (130-400); RDW Coefficient of Variation 12.2 % (11.5-14.5); RDW Standard Deviation 42.3 fL (36.4-46.3); Red Blood Count 4.47 M/uL (4.20-5.40); White Blood Count 4.85 K/ul (4.8-10.8)
[2022-11-04 15:00] LABS: D Dimer 280 ug/L FEU (0-500); INR 1.1 (0.9-1.1); Partial Thromboplastin Ratio 0.9; Partial Thromboplastin Time 26.1 Seconds (21.0-31.0); Prothrombin Time 11.7 Seconds (9.0-12.0)
[2022-11-04 15:15] LABS: Albumin Level 4.7 gm/dl (3.4-5.0); BUN Creatinine Ratio 15.2 (10-20); Bilirubin,Total 0.6 mg/dl (0.2-1.0); Calcium 10.3 mg/dl (8.5-10.1); Creatinine Clr Calc Pharmacy 92.8 ml/min; Est GFR (African American) 115.6 ml/min; Est GFR (Non-African American) 99.8 ml/min; Globulin 2.3 gm/dl (2.5-4.0); Potassium 3.8 mmol/L (3.5-5.1); Pregnancy Test, Serum Negative (Negative)
[2022-11-04 15:19] LABS: Troponin I High Sensitivity 2.7 pg/ml (0-14)
[2022-11-04 15:44] LABS: Adenovirus PCR Not Detected (NotDetected); Bordetella parapertussis PCR Not Detected (NotDetected); Bordetella pertussis PCR Not Detected (NotDetected); Chlamydia pneumoniae PCR Not Detected (NotDetected); Coronavirus 229E PCR Not Detected (NotDetected); Coronavirus CoV-2 (COVID19)PCR Not Detected (NotDetected); Coronavirus HKU1 PCR Not Detected (NotDetected); Coronavirus NL63 PCR Not Detected (NotDetected); Coronavirus OC43PCR Not Detected (NotDetected); Human Metapneumovirus PCR Not Detected (NotDetected); Influenza A PCR Not Detected (NotDetected); Influenza B PCR Not Detected (NotDetected); Mycoplasma pneumoniae PCR Not Detected (NotDetected); Parainfluenza Virus 1 PCR Not Detected (NotDetected); Parainfluenza Virus 2 PCR Not Detected (NotDetected); Parainfluenza Virus 3 PCR Not Detected (NotDetected); Parainfluenza Virus 4 PCR Not Detected (NotDetected); Respiratory Syncytial VirusPCR Not Detected (NotDetected); Rhinovirus/Enterovirus PCR Not Detected (NotDetected)
--- NOTE | 2022-11-04 16:12 | History & Physical Report ---
Date of Service November 04, 2022 Assessment & Plan (1) Nausea & vomiting: Plan: Patient is 32-year-old female with PMH prior history of [place], IV drug abuse, h/o tricuspid valve endocarditis s/p RV repair in 2015, last reported IV drug use in 2019, on Suboxone, bipolar disorder, PTSD, asthma presented to ER with complaint of Nausea and vomiting x6 days. No vomiting today Vital stable. Afebrile in ER. No leukocytosis. No significant electrolyte abnormality. Normal LFTs, normal lactate. normal lipase Chest x-ray without infiltrate CT abd/pelvis: No bowel obstruction or bowel wall thickening. The appendix is not definitively seen. No secondary signs of acute appendicitis. Right nephrolithiasis. Cholecystectomy. Obtain lipase level Obtain HIV, patient verbally consented Clear liquid diet Zofran as needed nausea CBC, BMP in a.m. (2) Palpitations: Plan: Patient with history of palpitations Reported palpitations today Currently following with [facility] Event monitor 07/2022: Sinus rhythm with sinus tachycardia up to 190, average HR 85. No arrhythmia, occasional PVC. 34 symptomatic events reported with normal sinus rhythm and sinus tachycardia noted at those times. Echo 10/28/2022: Mildly dilated left ventricle, EF: 55-60%, no wall motion abnormalities. S/p tricuspid ring valvuloplasty with mild regurgitation without significant stenosis. Mild pulmonary hypertension Initial troponin negative. EKG normal sinus rhythm, incomplete RBBB, nonspecific T wave changes lateral leads Monitor on telemetry Trend troponin EKG in a.m. Cardiology consult We will hold on repeat echo pending cardiology recommendations (3) S/P tricuspid valve repair: Plan: History endocarditis. S/p tricuspid valve repair in 2015 (4) Opioid dependence in remission: Plan: Last use reported in 2019 Continue Suboxone Follows with [facility] (5) Hepatitis C: Plan: History Hepatitis C Previously followed with Nohem[facility] LUCERO. Lost to follow up May need to consider further labs. Will need outpatient follow up (6) Asthma: Plan: No signs of exacerbation Continue home inhalers (7) Bipolar disorder: Plan: Continue home medicines DVT Prophylaxis Lovenox SQ Full Code as per discussion with pt Follows with Dr Thomas for routine care Pt was seen and care coordinated with Dr Douglas. See addendum I spent a total of 75 minutes reviewing notes, outpatient records, labs, medication, coordinating, documenting and providing care for this patient excluding time spent in the performance of separately billed services. History of Present Illness Chief Complaint: Nausea, palpitations Primary Care Provider: Bud Thomas DO Patient is 32-year-old female with PMH prior history of [place], IV drug abuse, h/o tricuspid valve endocarditis s/p RV repair in 2016, last reported IV drug use in 2019, on Suboxone, bipolar disorder, PTSD, asthma presented to ER with complaint of Nausea and palpitations. History obtained from patient and chart review. Patient states 6 days ago started with nausea, vomiting. Had approximately 10- 15 episodes of vomiting. Reports epigastric discomfort. Is unsure if anything worsens or aggravates epigastric discomfort. Has been eating toast and crackers and retaining. No vomiting yesterday or today. Denies any diarrhea. Last BM this morning and was formed stool. C/O intermittent dizziness. Reports has been taking temperature and temperatures of 99F, yesterday Tmax: 100.4F. Reports SOB and palpitations today. Denies chest pain. Denies any cough. Has been taking Tylenol 1000 mg twice daily for couple of days. Patient seen outpatient clinic today and referred to ER. Denies diaphoresis, hematemesis, hematochezia, melena, syncope, vision changes, neck pain, CP, orthopnea, cough, sore throat, choking, otalgia, rhinorrhea, paresthesias, weakness, extremity weakness, extremity edema, rashes, urinary symptoms. History cholecystectomy. Outpatient chart review: Today had EKG read by cardiology as normal sinus rhythm, possible left atrial enlargement, incomplete right bundle branch block, nonspecific T wave abnormality. No significant change when compared to EKG 04/19/2022. Patient with history of palpitations. Currently following with [facility]. Event monitor 07/2022: Sinus rhythm with sinus tachycardia up to 190, average HR 85. No arrhythmia, occasional PVC. 34 symptomatic events reported with normal sinus rhythm and sinus tachycardia noted at those times. Echo 10/28/2022: Mildly dilated left ventricle, EF: 55-60%, no wall motion abnormalities. S/p tricuspid ring valvuloplasty with mild regurgitation without significant stenosis. Mild pulmonary hypertension History of chronic hepatitis C Negative HIV testing in 201912/14/2021 ultrasound abdomen: 1.3 x 1.7 x 1.4 cm echogenic mass within the right lobe. Patient previously followed with Nohemi LUCERO however has been lost to follow- up. Allergies Allergy/AdvReac Type Severity Reaction Status Date / Time cephalexin [From Keflex] AdvReac Mild Nausea Verified 11/04/22 15:43 doxycycline AdvReac Mild Nausea Verified 11/04/22 15:43 sulfamethoxazole AdvReac Mild Nausea Verified 11/04/22 15:43 [From Bactrim] trimethoprim [From Bactrim] AdvReac Mild Nausea Verified 11/04/22 15:43 Home Medications Medication Instructions Recorded Confirmed Type albuterol sulfate 90 mcg/actuation 2 puff inhalation QID PRN Wheezing 02/17/20 11/04/22 History aerosol inhaler (Ventolin HFA) fluticasone propionate 110 1 puff inhalation BID 03/11/21 11/04/22 History mcg/actuation HFA aerosol inhaler (Flovent HFA) fluticasone propionate 50 2 spray intranasal QAM PRN 03/11/21 11/04/22 History mcg/actuation nasal Shortness Of Breath Or Wheezing spray,suspension (Flonase Allergy Relief) Medical Marijuana 1 dose inhalation UD 06/01/21 11/04/22 History medroxyprogesterone 150 mg/mL 150 mg IM Q3M 06/01/21 11/04/22 History intramuscular suspension (Depo-Provera) buprenorphine 8 mg-naloxone 2 mg 2 tab sublingual DAILY 09/10/21 11/04/22 History sublingual tablet hydroxyzine pamoate 25 mg capsule 25 mg PO QID PRN Anxiety 09/10/21 11/04/22 History ipratropium 0.5 mg-albuterol 3 mg 3 ml inhalation Q4H PRN wheezing 09/10/21 11/04/22 Rx (2.5 mg base)/3 mL nebulization #90 mL soln pantoprazole 40 mg tablet,delayed 40 mg PO QAM 09/10/21 11/04/22 History release (Protonix) amoxicillin 500 mg capsule 2,000 mg PO DIRECTED PRN Dental 11/04/22 11/04/22 History procedure oxybutynin chloride 10 mg 10 mg PO DAILY 11/04/22 11/04/22 History tablet,extended release 24 hr topiramate 50 mg tablet 50 mg PO BID 11/04/22 11/04/22 History ursodiol 300 mg capsule 300 mg PO BID 11/04/22 11/04/22 History Past Med/Surg History Medical History (Updated 11/04/22 @ 18:37 by Asya Smith PA-C) Alcohol abuse Patient denies Anxiety Asthma PRN inhalers Bipolar disorder No medications Bronchopneumonia Chronic back pain Cough with hemoptysis Depression No medications Drug abuse Opiods, Methamphetamine. Patient reports she has been "clean" for 2 years. She currently use medical marijuana that is prescribed. 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 She was doing "Speed" at the time of [place], per the patient. Odontogenic infection of jaw Opioid dependence in remission Pneumonitis Post traumatic stress disorder Seizure NO MEDS -- LAST SEIZURE JULY (TOWARDS THE END) 2017. PSEUDOTREMORS. No medical. Smoker (spontaneous vaginal delivery) 02/15/2009 Syncope Tobacco abuse Smoke 1/2 PPD Surgical History H/O tricuspid valve replacement 2016 History of adenoidectomy History of section History of cholecystectomy History of colonoscopy History of esophagogastroduodenoscopy (EGD) History of primary section Patient is unsure of why she had a . Reports "a lot of bleeding" History of primary section History of tonsillectomy S/P tricuspid valve repair 2014 Family History Grandfather Stroke Heart disease Mother Hypertension Heart disease Father Hypertension Social History (Updated 11/04/22 @ 17:31 by Asya Smith PA-C) Smoking Status: Former smoker Tobacco Type: E-cigarettes / Vaping packs per day: 1; Cigarettes Per Day: 10; Second Hand Exposure: No; Do You Dip or Chew Tobacco: No; Tobacco Cessation Education Requested by Patient: No Hx Alcohol Use: No Hx Substance Use: Yes Last Used Substance: Hours (ago) Last Used Substance Other:: 2019 - opiates, methamphetamine. 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 Feels Safe at Home: Yes Safety Concerns: Feels Safe At This Time Assistive Devices: Glasses Review of Systems Review of Systems: All systems reviewed & are unremarkable except as noted in HPI & below Physical Exam Physical Exam: General: no distress, WDWN, appears older than stated age Head: normocephalic, atraumatic Eyes: conjunctiva non-injected, anicteric ENT: normal inspection external ears, nose, mucous membranes moist Neck: supple, trachea midline Lungs: clear, no respiratory distress, no wheezing/rhonchi/rales CV: bradycardia, rate 56, regular rhythm, no murmur, no pretibial edema Abd: normal BS, soft, +mild tenderness to palpation epigastric region only Ext: no cyanosis, no calf tenderness Neuro: A&O x 3, no focal deficits noted, normal affect Skin: warm, dry Results & Data Results & Data ([facility]) Vital Signs (Past 12 Hours) Vital Signs Temp Pulse Resp BP Pulse Ox 11/04/22 12:40 36.8 C 71 12 148/89 H 100 Laboratory Results Short CBC 11/04/22 Range/Units 14:23 WBC 4.85 (4.8-10.8) K/ul Hgb 14.3 (12.0-16.0) g/dl Hct 42.1 (37.0-47.0) % Plt Count 187 (130-400) K/uL BMP 11/04/22 14:23 Sodium 141 Potassium 3.8 Chloride 109 H Carbon Dioxide 24 BUN 12 Creatinine 0.79 Glucose 89 Calcium 10.3 H Liver Function 11/04/22 Range/Units 14:23 Total Bilirubin 0.6 (0.2-1.0) mg/dl AST 20 (13-39) U/L ALT 19 (7-52) U/L Alkaline Phosphatase 87 (34-104) U/L Albumin 4.7 (3.4-5.0) gm/dl Diagnostic Findings Chest X-Ray 11/04/22 12:45 XR chest 1V portable HISTORY: Chest pain, nonspecific COMPARISON: Chest 09/10/2021. FINDINGS: Stable small linear scarlike densities within the right lung base. Otherwise, lungs are clear. The heart is normal in size. No pleural effusions. No pneumothorax. There are poststernotomy changes again noted. IMPRESSION: No significant change compared to the prior study. No acute process. ACT 112: Negative or not required by law. Electronically signed by: Eusebio Tolentino M.D. 11/04/2022 2:39 PM Abdomen/Pelvis CT 11/04/22 17:[address] WITH IV CONTRAST CT DOSE: 293.29 mGy.cm HISTORY: Acute epigastric abdominal pain epigastric pain TECHNIQUE: Multiaxial CT images of the abdomen and pelvis were performed following the IV administration of 72 cc of Optiray, A dose lowering technique was utilized adhering to the principles of ALARA. COMPARISON STUDY: MR abdomen 01/12/2022 FINDINGS: Prior median sternotomy with cardiac valvular prosthesis. Trace pleural effusions with mild subsegmental bibasilar atelectasis. No pneumatosis or pneumoperitoneum. Unremarkable spleen, pancreas and adrenal glands. Cholecystectomy. Ill-defined lesion within the right hepatic lobe is better seen on the MRI abdomen from 01/12/2022 appears stable in size measuring approximately 1.5 cm.. Liver is mildly enlarged. . 3 mm nonobstructing calculus of the interpolar right kidney. No ureteral calculi or hydronephrosis. Unremarkable urinary bladder, uterus and adnexa. Aorta and IVC are unremarkable. No lymphadenopathy identified. No bowel obstruction or bowel wall thickening. Moderate colonic fecal retention. The appendix is not definitively seen. No secondary signs of acute appendicitis. Unremarkable soft tissues. No acute fracture. Chronic T12 wedge deformity. Degenerative marginal spurring of the proximal femora redemonstrated. IMPRESSION: 1. No bowel obstruction or bowel wall thickening. The appendix is not definitively seen. No secondary signs of acute appendicitis. 2. Trace pleural effusions with mild bibasilar atelectasis. 3. Right nephrolithiasis. 4. Cholecystectomy. ACT 112: Negative or not required by law. The above report was generated using voice recognition software. It may contain grammatical, syntax or spelling errors. Electronically signed by: Elliott Camp M.D. 11/04/2022 5:50 PM Supervising Physician Co-Signing Physician Notes Patient was seen and examined independently. chart reviewed. Case discussed with LEEROY. Agree with assessment and plan as outlined above (1) Asthma Asthma complication type: unspecified Asthma persistence: unspecified Asthma severity: unspecified severity Qualified Code(s): J45.909 - Unspecified asthma, uncomplicated
--- NOTE | 2022-11-04 16:21 | Electrocardiogram Report ---
Test Reason : Blood Pressure : / mmHG Vent. Rate : 082 BPM Atrial Rate : 082 BPM P-R Int : 136 ms QRS Dur : 098 ms QT Int : 360 ms P-R-T Axes : 075 053 022 degrees QTc Int : 420 ms Normal sinus rhythm Possible Left atrial enlargement Incomplete right bundle branch block Poor R wave progression, consider anterior [place] vs. lead placement vs. LVH T wave abnormality, consider inferior ischemia Abnormal ECG When compared with ECG of 10-SEP-2021 11:07, Nonspecific T wave abnormality now evident in Lateral leads Confirmed by Ilan Calles ([id number]) on 11/04/2022 4:21:28 PM Referred By: Confirmed By:Ilan Calles
[2022-11-04] MEDS ORDERED: PANTOprazole 40 MG in SYRINGE 0 ML IV ONE (17:30)
[2022-11-04] MEDS ORDERED: OPTIRAY 350 100ml IV ONE (17:33)
--- NOTE | 2022-11-04 17:51 | CT Scan Report ---
ABDOMEN AND PELVIS CT WITH IV CONTRAST CT DOSE: 293.29 mGy.cm HISTORY: Acute epigastric abdominal pain epigastric pain TECHNIQUE: Multiaxial CT images of the abdomen and pelvis were performed following the IV administrat ion of 72 cc of Optiray, A dose lowering technique was utilized adhering to the principles of ALARA. COMPARISON STUDY: MR abdomen 01/12/2022 FINDINGS: Prior median sternotomy with cardiac valvular prosthesis. Trace pleural effusions with mild subsegmental bibasilar atelectasis. No pneumatosis or pneumoperitoneum. Unremarkable spleen, pancrea s and adrenal glands. Cholecystectomy. Ill-defined lesion within the right hepatic lobe is better see n on the MRI abdomen from 01/12/2022 appears stable in size measuring approximately 1.5 cm.. Liver is mildly enlarged. . 3 mm nonobstructing calculus of the interpolar right kidney. No ureteral calculi or hydronephrosis. Unremarkable urinary bladder, uterus and adnexa. Aorta and IVC are unremarkable. No lymphadenopathy identified. No bowel obstruction or bowel wall thickening. Moderate colonic fecal retention. The appe ndix is not definitively seen. No secondary signs of acute appendicitis. Unremarkable soft tissues. N o acute fracture. Chronic T12 wedge deformity. Degenerative marginal spurring of the proximal femora redemonstrated. IMPRESSION: 1. No bowel obstruction or bowel wall thickening. The appendix is not definitively seen. No secondary signs of acute appendicitis. 2. Trace pleural effusions with mild bibasilar atelectasis. 3. Right nephrolithiasis. 4. Cholecystectomy. ACT 112: Negative or not required by law. The above report was generated using voice recognition software. It may contain grammatical, syntax o r spelling errors. Electronically signed by: Elliott Camp M.D. 11/04/2022 5:50 PM
[2022-11-04] MEDS ORDERED: ACETAMINOPHEN 325 MG TAB PO PRN (18:26)
[2022-11-04] MEDS ORDERED: POLYETHYLENE (MIRALAX) 17 GM PACK PO PRN (18:26)
[2022-11-04] MEDS ORDERED: ALBUTEROL HFA 8 GM INHALER INH PRN (18:26)
[2022-11-04] MEDS ORDERED: ONDANSETRON INJ 2 MG/ML 2 ML VIAL IV PRN (18:26)
[2022-11-04] MEDS ORDERED: ENOXAPARIN INJ 40 MG/0.4 ML SYR SQ SCH (19:00)
[2022-11-04 20:17] LABS: Amphetamines+Metham, Urine Neg (Neg); Barbiturates, Urine Neg (Neg); Benzodiazepine, Urine Neg (Neg); Cocaine, Urine Neg (Neg); MDMA (Ecstacy), Urine Neg (Neg); Methadone, Urine Neg (Neg); Opiate, Urine Neg (Neg); Phencyclidine, Urine Neg (Neg)
[2022-11-05 07:22] LABS: Hematocrit (blood only) 40.4 % (37.0-47.0); Hemoglobin 13.7 g/dl (12.0-16.0); Mean Corpuscular Hemoglobin 32.9 pg (25.0-34.0); Mean Corpuscular Hgb Conc 33.9 g/dL (32.0-36.0); Mean Corpuscular Volume 96.9 fL (80.0-100.0); Mean Platelet Volume 10.7 fL (9.4-12.4); Platelet Count 173 K/uL (130-400); RDW Coefficient of Variation 12.3 % (11.5-14.5); Red Blood Count 4.17 M/uL (4.20-5.40); White Blood Count 4.65 K/ul (4.8-10.8)
[2022-11-05 07:38] LABS: Anion Gap 6 (3-11); Blood Urea Nitrogen 17 mg/dl (6-23); Calcium 9.6 mg/dl (8.5-10.1); Carbon Dioxide 26 mmol/L (21-32); Chloride 111 mmol/L (98-107); Creatinine Clr Calc Pharmacy 90.6 ml/min; Est GFR (African American) 112.2 ml/min; Est GFR (Non-African American) 96.8 ml/min; Glucose 97 mg/dl (70-99(Fasting)); Potassium 3.9 mmol/L (3.5-5.1); Sodium 143 mmol/L (136-145)
[2022-11-05 07:45] LABS: Troponin I High Sensitivity < 2.3 pg/ml (0-14)
[2022-11-05] MEDS ORDERED: BUPRENORPHINE/NALOXONE 8/2 MG TAB SL SCH ×2 (09:00)
[2022-11-05] MEDS ORDERED: PANTOprazole 40 MG in SYRINGE 0 ML IV SCH (11:00)
--- NOTE | 2022-11-05 11:50 | Cardiology Consultation ---
Date of Consultation November 05, 2022 Assessment & Plan (1) Palpitations: -workup in July 2022 noted only symptomatic sinus tachycardia. 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 -regular rhythm with auscultation during her complaints of palpitations. -no further cardiac workup indicated at this time. (2) Infective endocarditis of tricuspid valve: -s/p tricuspid valve repair and annuloplasty ring, July 2016 -echocardiogram last month noted intact tricuspid valve and annuloplasty ring. History of Present Illness Attending Physician: Danika Douglas MD History of Present Illness Ms. Hernandez is a 32-year-old female admitted yesterday because of persistent nausea and vomiting. She also gives a history of palpitations, therefore, this consultation was ordered. Of note, patient follows with Dr. Powers in the outpatient setting. The patient was in usual state of health until approximately 6 days prior to presentation. She developed persistent nausea and intermittent vomiting. She presented to her primary care physician's office yesterday and was sent to the emergency room for further evaluation. She has been noticing intermittent palpitations for many months. She did wear a long-term event monitor back in July which noted sinus rhythm. All diary entries were evaluated and noted either sinus rhythm or sinus tachycardia. She had an echocardiogram performed on October 28 which noted normal systolic function with ejection fraction 55-60%. There was an intact tricuspid valve annuloplasty ring. There was mild tricuspid regurgitation. Currently, patient is resting comfortably in bed and without complaints. She complained of intermittent palpitations during my examination. Heart rate was regular at that time. Past medical and surgical history 1. Tricuspid valve endocarditis-July 2016 2. Tricuspid valve repair and annuloplasty ring-July 2016 3. Normal coronary arteries-July 2016 4. Palpitations-negative workup 5. Asthma 6. Hepatitis-C 7. Nephrolithiasis 8. Bipolar disorder 9. Posttraumatic stress disorder 10. History of pulmonary embolism-oral contraceptive pill 11. History of intravenous drug abuse 12. Cholecystectomy Social history Smokes 1 pack of cigarettes daily Family history No early coronary artery disease Review of systems A 10 review systems was negative except that described above. Allergies Allergy/AdvReac Type Severity Reaction Status Date / Time cephalexin [From Keflex] AdvReac Mild Nausea Verified 11/04/22 15:43 doxycycline AdvReac Mild Nausea Verified 11/04/22 15:43 sulfamethoxazole AdvReac Mild Nausea Verified 11/04/22 15:43 [From Bactrim] trimethoprim [From Bactrim] AdvReac Mild Nausea Verified 11/04/22 15:43 Home Medications Medication Instructions Recorded Confirmed Type albuterol sulfate 90 mcg/actuation 2 puff inhalation QID PRN Wheezing 02/17/20 11/04/22 History aerosol inhaler (Ventolin HFA) fluticasone propionate 110 1 puff inhalation BID 03/11/21 11/04/22 History mcg/actuation HFA aerosol inhaler (Flovent HFA) fluticasone propionate 50 2 spray intranasal QAM PRN 03/11/21 11/04/22 History mcg/actuation nasal Shortness Of Breath Or Wheezing spray,suspension (Flonase Allergy Relief) Medical Marijuana 1 dose inhalation UD 06/01/21 11/04/22 History medroxyprogesterone 150 mg/mL 150 mg IM Q3M 06/01/21 11/04/22 History intramuscular suspension (Depo-Provera) buprenorphine 8 mg-naloxone 2 mg 2 tab sublingual DAILY 09/10/21 11/04/22 History sublingual tablet hydroxyzine pamoate 25 mg capsule 25 mg PO QID PRN Anxiety 09/10/21 11/04/22 History ipratropium 0.5 mg-albuterol 3 mg 3 ml inhalation Q4H PRN wheezing 09/10/21 11/04/22 Rx (2.5 mg base)/3 mL nebulization #90 mL soln pantoprazole 40 mg tablet,delayed 40 mg PO QAM 09/10/21 11/04/22 History release (Protonix) amoxicillin 500 mg capsule 2,000 mg PO DIRECTED PRN Dental 11/04/22 11/04/22 History procedure oxybutynin chloride 10 mg 10 mg PO DAILY 11/04/22 11/04/22 History tablet,extended release 24 hr topiramate 50 mg tablet 50 mg PO BID 11/04/22 11/04/22 History ursodiol 300 mg capsule 300 mg PO BID 11/04/22 11/04/22 History Patient History Medical History (Updated 11/04/22 @ 18:37 by Asya Smith PA-C) Alcohol abuse Patient denies Anxiety Asthma PRN inhalers Bipolar disorder No medications Bronchopneumonia Chronic back pain Cough with hemoptysis Depression No medications Drug abuse Opiods, Methamphetamine. Patient reports she has been "clean" for 2 years. She currently use medical marijuana that is prescribed. 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 She was doing "Speed" at the time of [place], per the patient. Odontogenic infection of jaw Opioid dependence in remission Pneumonitis Post traumatic stress disorder Seizure NO MEDS -- LAST SEIZURE JULY (TOWARDS THE END) 2017. PSEUDOTREMORS. No medical. Smoker (spontaneous vaginal delivery) 02/15/2009 Syncope Tobacco abuse Smoke / PPD Surgical History H/O tricuspid valve replacement 2016 History of adenoidectomy History of section History of cholecystectomy History of colonoscopy History of esophagogastroduodenoscopy (EGD) History of primary section Patient is unsure of why she had a . Reports "a lot of bleeding" History of primary section History of tonsillectomy S/P tricuspid valve repair 2015 Family History Grandfather Stroke Heart disease Mother Hypertension Heart disease Father Hypertension Social History (Updated 11/04/22 @ 17:31 by Asya Smith PA-C) Smoking Status: Former smoker Tobacco Type: E-cigarettes / Vaping packs per day: 1; Cigarettes Per Day: 10; Second Hand Exposure: No; Do You Dip or Chew Tobacco: No; Tobacco Cessation Education Requested by Patient: No Hx Alcohol Use: No Hx Substance Use: Yes Last Used Substance: Hours (ago) Last Used Substance Other:: 2019 - opiates, methamphetamine. 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 Electrolytes note a sodium of 143, potassium 3.9, chloride 111, bicarb 26, BUN 17, creatinine 0.81, glucose of 97. Initial high sensitivity troponin was 2.7 with follow-up values of 2.9 and less than 2.3 on 2 occasions. Diagnostic Findings Initial EKG noted sinus rhythm with a right-sided conduction delay and poor R- wave progression across the anterior precordium. Second tracing notes sinus bradycardia without abnormalities. Third tracing notes sinus bradycardia and nonspecific ST abnormality. Chest x-ray shows no acute disease. PG Care Time/CCT Total # of Minutes Spent Total Time Spent with Patient: Total time spent is greater than 50% in coordination of care (as documented) at patient's floor/unit and/or counseling patient: Coding Level of Care Code INP/OBS CONSULT LVL 4, 60 MIN Diagnoses Palpitations R00.2 Infective endocarditis of tricuspid valve I33.0
--- NOTE | 2022-11-05 13:06 | Electrocardiogram Report ---
Test Reason : Blood Pressure : / mmHG Vent. Rate : 045 BPM Atrial Rate : 045 BPM P-R Int : 154 ms QRS Dur : 104 ms QT Int : 454 ms P-R-T Axes : 073 054 046 degrees QTc Int : 392 ms Sinus bradycardia RSR' or QR pattern in V1 suggests right ventricular conduction delay Borderline ECG When compared with ECG of 04-NOV-2022 13:24, Vent. rate has decreased BY 37 BPM T wave inversion no longer evident in Inferior leads Confirmed by Ilan Calles ([id number]) on 11/05/2022 1:05:58 PM Referred By: Bud Thomas Confirmed By:Ilan Calles
--- NOTE | 2022-11-05 13:16 | Electrocardiogram Report ---
Test Reason : Blood Pressure : / mmHG Vent. Rate : 049 BPM Atrial Rate : 049 BPM P-R Int : 160 ms QRS Dur : 112 ms QT Int : 464 ms P-R-T Axes : 091 088 123 degrees QTc Int : 419 ms Sinus bradycardia Nonspecific ST abnormality Abnormal ECG When compared with ECG of 05-NOV-2022 05:06, (unconfirmed) Non-specific change in ST segment in Lateral leads Confirmed by Ilan Calles ([id number]) on 11/05/2022 1:16:18 PM Referred By: Bud Thomas Confirmed By:Ilan Calles
--- NOTE | 2022-11-05 13:16 | Electrocardiogram Report ---
Test Reason : Blood Pressure : / mmHG Vent. Rate : 055 BPM Atrial Rate : 055 BPM P-R Int : 156 ms QRS Dur : 108 ms QT Int : 446 ms P-R-T Axes : 089 084 055 degrees QTc Int : 426 ms Poor data quality, interpretation may be adversely affected Sinus bradycardia Otherwise normal ECG When compared with ECG of 04-NOV-2022 15:55, (unconfirmed) No significant change was found Confirmed by Ilan Calles ([id number]) on 11/05/2022 1:16:13 PM Referred By: Bud Thomas Confirmed By:Ilan Calles
--- NOTE | 2022-11-05 13:21 | Discharge Summary ---
Date of Service November 05, 2022 Admission HPI Per Admitting Provider Patient is 32-year-old female with PMH prior history of MO, IV drug abuse, h/o tricuspid valve endocarditis s/p RV repair in 2016, last reported IV drug use in 2019, on Suboxone, bipolar disorder, PTSD, asthma presented to ER with complaint of Nausea and palpitations. History obtained from patient and chart review. Patient states 6 days ago started with nausea, vomiting. Had approximately 10- 15 episodes of vomiting. Reports epigastric discomfort. Is unsure if anything worsens or aggravates epigastric discomfort. Has been eating toast and crackers and retaining. No vomiting yesterday or today. Denies any diarrhea. Last BM this morning and was formed stool. C/O intermittent dizziness. Reports has been taking temperature and temperatures of 99F, yesterday Tmax: 100.4F. Reports SOB and palpitations today. Denies chest pain. Denies any cough. Has been taking Tylenol 1000 mg twice daily for couple of days. Patient seen outpatient clinic today and referred to ER. Denies diaphoresis, hematemesis, hematochezia, melena, syncope, vision changes, neck pain, CP, orthopnea, cough, sore throat, choking, otalgia, rhinorrhea, paresthesias, weakness, extremity weakness, extremity edema, rashes, urinary symptoms. History cholecystectomy. Outpatient chart review: Today had EKG read by cardiology as normal sinus rhythm, possible left atrial enlargement, incomplete right bundle branch block, nonspecific T wave abnormality. No significant change when compared to EKG 04/19/2022. Patient with history of palpitations. Currently following with [facility]. Event monitor 07/2022: Sinus rhythm with sinus tachycardia up to 190, average HR 85. No arrhythmia, occasional PVC. 34 symptomatic events reported with normal sinus rhythm and sinus tachycardia noted at those times. Echo 10/28/2022: Mildly dilated left ventricle, EF: 55-60%, no wall motion abnormalities. S/p tricuspid ring valvuloplasty with mild regurgitation without significant stenosis. Mild pulmonary hypertension History of chronic hepatitis C Negative HIV testing in 201912/14/2021 ultrasound abdomen: 1.3 x 1.7 x 1.4 cm echogenic mass within the right lobe. Patient previously followed with [facility] however has been lost to follow- up. Principal Diagnosis Nausea Vomiting Palpitations Discharge Exam Patient was seen and examined on the day of discharge. She feels well. Tolerated lunch. No nausea/vomiting or abdominal pain Telemetry was reviewed. Noted to be bradycardic (HR 60s). No arrhythmias noted On exam, no acute distress, non toxic Breathing comfortably on room air, no wheezing/rhonchi/rales Bradycardic but no murmurs/rubs Abdomen soft and non tender Discharge Data Allergies Allergy/AdvReac Type Severity Reaction Status Date / Time cephalexin [From Keflex] AdvReac Mild Nausea Verified 11/04/22 15:43 doxycycline AdvReac Mild Nausea Verified 11/04/22 15:43 sulfamethoxazole AdvReac Mild Nausea Verified 11/04/22 15:43 [From Bactrim] trimethoprim [From Bactrim] AdvReac Mild Nausea Verified 11/04/22 15:43 Consultations 11/04/22 15:59 ED Decision to Admit Stat 11/05/22 08:00 Consult Cardiology Routine Ordered Studies 11/04/22 17:20 CT abd pelvis IV con only Urgent Hospital Course (1) Nausea & vomiting: (2) Palpitations: (3) S/P tricuspid valve repair: (4) Opioid dependence in remission: (5) Hepatitis C: (6) Asthma: (7) Bipolar disorder: Plan Ms Nancy Hernandez is a 32 year old female with history of Tricuspid endocarditis related to her IV drug use requiring valvuloplasty, currently on Suboxone therapy, history also of Bipolar Disorder, PTSD and remaining medical history as listed in H&P was sent to the ER 2/3 by her PCP for nausea vomiting and palpitations with an abnormal outpatient EKG. Upon arrival here, her EKG was noted to show sinus rhythm and an incomplete RBBB. She was placed in observation on telemetry and had serial negative troponin. Her medical records were reviewed and it was noted that she recently had an TTE less than 2 weeks ago and recently had an event monitor for her history of palpitations (events of palpitations were not correlated with arrhythmias). She was seen by Cardiology here and can follow up with her Resistor Coater after discharge to discuss whether additional studies are indicated. For her nausea/vomiting and flu like symptoms. Her work up included viral studies which were negative, CT A/P was unremarkable, and an HIV test was sent but was pending at discharge. Patient's outpatient chart was reviewed and she was noted to have tested positive for HCV screen several years ago but then subsequently had a negative HCV RNA. Patient does not recall this and was encouraged to follow up with her PCP to discuss if further workup is indicated. At the time of discharge her nausea/vomiting had resolved and she was tolerating a diet. Total Time Total Time Spent Total Time Spent (In Minutes): 40 Discharge Plan Discharge Items Patient Disposition: Home - Self-Care Reason For Visit: SOB Discharge Diagnosis: Nausea Vomiting Palpitations Condition on Discharge: Good Activity: Resume your previous activity Non-emergency contact: Primary Care Provider Call non-emergency contact if: you have any medication questions and your symptoms worsen Follow-up/Referrals: Bud Thomas DO [Primary Care Provider] - Diet: Regular Addtl Attending Provider Instructions: Please follow up with your primary care doctor. You had an HIV test here which was pending at discharge. 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 Pending Studies at Discharge: Yes Studies:: HIV test Stand-Alone Forms: My [facility] [employer], Smoking Cessation Medications and DC Order Prescriptions: New ondansetron 4 mg tablet,disintegrating 4 mg PO Q8H PRN (Reason: nausea and vomiting) 4 Days Qty: 14 0RF Continued albuterol sulfate [Ventolin HFA] 90 mcg/actuation Hfa Aerosol Inhaler 2 puff INHALATION QID PRN (Reason: Wheezing) pantoprazole [Protonix] 40 mg Tablet,Delayed Release (Dr/Ec) 40 mg PO QAM hydroxyzine pamoate 25 mg capsule 25 mg PO QID PRN (Reason: Anxiety) buprenorphine-naloxone 8-2 mg Tablet, Sublingual 2 tab SUBLINGUAL DAILY ipratropium-albuterol 0.5 mg-3 mg(2.5 mg base)/3 mL solution for nebulization 3 ml inhalation Q4H PRN (Reason: wheezing) Qty: 90 0RF amoxicillin 500 mg capsule 2,000 mg PO DIRECTED PRN (Reason: Dental procedure) Rx Instructions: Take 4 caps 1 hour prior to dental procedures/exam. ursodiol 300 mg capsule 300 mg PO BID topiramate 50 mg tablet 50 mg PO BID oxybutynin chloride 10 mg tablet extended release 24hr 10 mg PO DAILY fluticasone propionate [Flonase Allergy Relief] 50 mcg/actuation spray,suspension 2 spray INTRANASAL QAM PRN (Reason: Shortness Of Breath Or Wheezing) fluticasone propionate [Flovent HFA] 110 mcg/actuation HFA aerosol inhaler 1 puff INHALATION BID medroxyprogesterone [Depo-Provera] 150 mg/mL suspension 150 mg IM Q3M Medical Marijuana 1 dose inhalation UD Rx Instructions: Patient vapes Discharge Orders: Discharge Order (Routine); Ordered 11/05/22 Ordered By: Danika Douglas Admission Data Admit Date/Time: 11/04/22 16:24 Attending Provider: Danika Douglas Admit Provider: Danika Douglas Primary Care Provider: Bud Thomas Other Providers: Danika Douglas ; Ilan Calles
[2022-11-07 03:23] LABS: Marijuana Quant, GCMS Urine 893 ng/mL (<5)
== END 2022-11-05 17:35 | disposition home or self-care (01) ==
LOC: ED 12:36 → 2N 12:36

== ENCOUNTER 2023-11-08 13:08 | Inpatient (IN) ==
[2023-11-08] MEDS: TERBUTALINE SULFATE 1 MG/ML VIAL SQ PRN ×2 (14:08→21:45)
[2023-11-08] MEDS: LACTATED RINGER'S 1,000 ML IV ONE (14:23)
[2023-11-08 14:30] LABS: Appearance Urine Clear (Clear); Bilirubin Urine Negative (Negative); Blood Urine Negative (Negative); Color Urine Yellow; Glucose Urine UA Negative (Negative); Ketones Urine Negative (Negative); Leukocyte Esterase Urine Negative (Negative); Nitrite Urine Negative (Negative); Protein Urine Negative (Negative); Specific Gravity Urine 1.006 (1.000-1.030); Urobilinogen Urine Negative (Negative)
[2023-11-08 14:50] LABS: Basophils # (auto) 0.03 K/uL (0.00-0.20); Basophils % (auto) 0.3 %; Eosinophils # (auto) 0.04 K/uL (0.00-0.50); Eosinophils % (auto) 0.4 %; Hematocrit (blood only) 35.8 % (37.0-47.0); Hemoglobin 12.5 g/dl (12.0-16.0); Immature Granulocytes # (auto) 0.11 K/uL (0.01-0.20); Immature Granulocytes % (auto) 1.1 %; Lymphocytes # (auto) 2.24 K/uL (1.20-3.40); Mean Corpuscular Hemoglobin 33.2 pg (25.0-34.0); Mean Corpuscular Hgb Conc 34.9 g/dL (32.0-36.0); Mean Corpuscular Volume 95.2 fL (80.0-100.0); Mean Platelet Volume 12.1 fL (9.4-12.4); Monocytes # (auto) 1.26 K/uL (0.11-0.59); Monocytes % (auto) 12.4 %; Neutrophils # (auto) 6.48 K/uL (1.40-6.50); Neutrophils % (auto) 63.8 %; Platelet Count 126 K/uL (130-400); RDW Coefficient of Variation 12.6 % (11.5-14.5); Red Blood Count 3.76 M/uL (4.20-5.40); White Blood Count 10.16 K/ul (4.8-10.8)
[2023-11-08 14:59] LABS: Amphetamines+Metham, Urine Neg (Neg); Barbiturates, Urine Neg (Neg); Benzodiazepine, Urine Neg (Neg); Cocaine, Urine Neg (Neg); MDMA (Ecstacy), Urine Neg (Neg); Marijuana, Urine Pos (Neg); Methadone, Urine Neg (Neg); Opiate, Urine Neg (Neg); Phencyclidine, Urine Neg (Neg)
[2023-11-08] MEDS: NIFEdipine 10 MG CAP PO STA ×2 (15:12→19:45)
[2023-11-08] MEDS: ACETAMINOPHEN 325 MG TAB PO PRN (15:12)
[2023-11-08 15:16] LABS: Albumin Level 3.4 gm/dl (3.4-5.0); Anion Gap 8 (3-11); Bilirubin,Total 0.5 mg/dl (0.2-1.0); Calcium 8.4 mg/dl (8.6-10.3); Carbon Dioxide 22 mmol/L (21-32); Chloride 103 mmol/L (98-107); Potassium 3.2 mmol/L (3.5-5.1); Sodium 133 mmol/L (136-145)
[2023-11-08 15:22] LABS: Alanine Aminotransferase 12 U/L (7-52); Albumin Globulin Ratio 1.3 (0.9-2); Alkaline Phosphatase 113 U/L (34-104); Aspartate Aminotransferase 15 U/L (13-39); BUN Creatinine Ratio 14.3 (10-20); Blood Urea Nitrogen 5 mg/dl (6-23); Creatinine Clr Calc Pharmacy 248.8 ml/min; Est GFR (African American) > 150.0 ml/min; Globulin 2.7 gm/dl (2.5-4.0); Glucose 102 mg/dl (70-99(Fasting)); Total Protein 6.1 gm/dl (6.0-8.3)
[2023-11-08] MEDS: LACTATED RINGER'S 1,000 ML IV SCH (15:25)
--- NOTE | 2023-11-08 16:02 | History & Physical Report ---
Date of Service November 08, 2023 Assessment & Plan (1) uterine contractions in third trimester, antepartum: Plan: 33-year-old -1-0-2 at 33 weeks and 4 days of gestation presenting today with decreased movements, resolved on its own, contractions, closed cervix, Vital signs stable afebrile, NST reactive, [place] showing regular contractions and they palpate mild to moderate, Plan to observe, start IV fluid bolus, terbutaline SQ once, labs and reevaluate. Patient agrees with plan, all questions were answered. (2) Decreased movement affecting management of mother, antepartum: (3) History of delivery: (4) History of labor, current : (5) Hepatitis C: (6) Tobacco abuse: (7) Asthma: (8) History of pulmonary embolism: (9) Opioid dependence in remission: History of Present Illness Chief Complaint: decreased fm and contractions Primary Care Provider: Kierra Amin MD Late entry from 2 PM. Patient is a 33-year-old -1-0-3 at 33 weeks and 4 days of gestation who presented to labor and delivery with decreased movement started about an hour ago. She started to have contractions on the way here. She feels them every 3 to 4 minutes and painful. She was put on the monitor and had a reactive NST and she started to feel movements. She states baby has been moving normally and yesterday and this morning and then was quiet for about an hour or so and then started to move as normal. She was in the office yesterday for NST it was reactive and she had 3 contractions in 20 minutes per nursing team. She was not feeling them yesterday and she was not checked. She denies leakage of fluid or vaginal bleeding. She denies fever chills, abdominal pain between contractions, problems with urination, chest pain shortness of breath, headache change in her vision. Her has been complicated by, 1. History of 2 prior C-sections, 2. History of cardiac surgery, repair of tricuspid valve in 2016 for infected well from IV drug use, 3. 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 Current marijuana use, has a medical card, 5. GDM A2, gestational diabetes, started on insulin 10 units a day, 6. Asthma during , 7. Smoker, 8. History of anxiety, PTSD, 9. History of PE, on Lovenox Allergies Allergy/AdvReac Type Severity Reaction Status Date / Time cephalexin [From Keflex] AdvReac Mild Nausea Verified 11/08/23 14:16 doxycycline AdvReac Mild Nausea Verified 11/08/23 14:16 sulfamethoxazole AdvReac Mild Nausea Verified 11/08/23 14:16 [From Bactrim] trimethoprim [From Bactrim] AdvReac Mild Nausea Verified 11/08/23 14:16 Home Medications Medication Instructions Recorded Confirmed Type albuterol sulfate 90 mcg/actuation 2 puff inhalation QID PRN Wheezing 02/17/20 11/08/23 History aerosol inhaler (Ventolin HFA) fluticasone propionate 110 1 puff inhalation BID 03/11/21 11/08/23 History mcg/actuation HFA aerosol inhaler (Flovent HFA) fluticasone propionate 50 2 spray intranasal QAM PRN 03/11/21 11/08/23 History mcg/actuation nasal Shortness Of Breath Or Wheezing spray,suspension (Flonase Allergy Relief) buprenorphine 8 mg-naloxone 2 mg 0.5 tab sublingual BID 01/23/23 11/08/23 History sublingual tablet valacyclovir 500 mg tablet 500 mg PO DAILY 01/23/23 11/08/23 History vit with calcium-iron 1 tab PO DAILY 08/02/23 11/08/23 History fum-folic acid 60 mg-0.8 mg tablet enoxaparin 40 mg/0.4 mL 40 mg subcut HS 09/05/23 11/08/23 History subcutaneous syringe insulin glargine 100 unit/mL 10 unit subcut PM 11/08/23 11/08/23 History subcutaneous cartridge Patient History Medical History Hepatitis C Nausea & vomiting Lab test negative for COVID-19 virus Shortness of breath Flu-like symptoms Infective endocarditis of tricuspid valve Palpitations (spontaneous vaginal delivery) 02/15/2009 Marginal insertion of umbilical cord Smoker Drug abuse Opiods, Methamphetamine. Patient reports she has been "clean" for 2 years. She currently use medical marijuana that is prescribed. Chest pain Tobacco abuse Smoke 1/2 PPD Bronchopneumonia Cough with hemoptysis Pneumonitis Heart failure History of seizure History of blood clots Alcohol abuse Patient denies Odontogenic infection of jaw Opioid dependence in remission History of pulmonary embolism Seizure NO MEDS -- LAST SEIZURE JULY (TOWARDS THE END) 2017. PSEUDOTREMORS. No medical. Chronic back pain Hepatitis C NO TREATMENT Post traumatic stress disorder Bipolar disorder no medications. states it was a misdiagnosis for ptsd. Depression No medications Anxiety Asthma PRN inhalers Myocardial Infarction At age 27. She was doing "Speed" at the time of [place], per the patient. Syncope Surgical History History of primary section History of primary section Patient is unsure of why she had a . Reports "a lot of bleeding" H/O tricuspid valve replacement 2015 History of section History of esophagogastroduodenoscopy (EGD) History of colonoscopy History of cholecystectomy History of tonsillectomy History of adenoidectomy S/P tricuspid valve repair 2014 Family History (Updated 11/08/23 @ 15:59 by Jaycee Chacon MD) Grandfather Stroke Heart disease Mother Hypertension Heart disease Father Hypertension Other Hepatitis C Social History (Updated 11/08/23 @ 14:15 by Lucía Bradley RN) Smoking Status: Former smoker Tobacco Type: Cigarettes packs per day: 1; Second Hand Exposure: No; Do You Dip or Chew Tobacco: No; Tobacco Cessation Education Requested by Patient: No Hx Alcohol Use: No Hx Substance Use: Yes Prescribed Medications: Marijuana Prescribed Medications Comment: has medical marijuana card Last Used Substance: Hours (ago) Last Used Substance Other:: 2019 - opiates, methamphetamine, heroine, bath salts Substance Use Type Other:: daily Preferred Language: Czech Communication Ability: Effective Visual Impairment: No Limitations Hearing Ability: Normal Hospice Nurse Required: No Beliefs That Will Affect Care: None marital status: Single Current Living Situation: Family Current Living Situation Comment: lives with boyfriend and 3 year old daugher current occupational status: employed 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 Review of Systems as per Subjective / HPI Physical Exam Constitutional: WD/WN, vitals as above well developed, well nourished and comfortable (Seems comfortable, minimal discomfort with contractions) Gastrointestinal (Abdomen): normal bowel sounds, soft, nontender, no hepatosplenomegaly (Gravid) Genitourinary: normal external appearance OB Exam Abdomen: + vertex Manual OB Exam: + cervical dilation (0), + cervical effacement 50% and + station -2 OB Exam Monitor Tracing: + external uterine monitor used (Contractions 2 to 4 minutes) and + category I Results & Data Vital Signs (Past 12 Hours) Vital Signs Temp Pulse Resp BP Pulse Ox 11/08/23 15:48 97 11/08/23 15:48 87 11/08/23 15:43 97 11/08/23 15:43 87 11/08/23 15:38 98 11/08/23 15:38 85 11/08/23 15:33 100 11/08/23 15:33 84 11/08/23 15:23 99 11/08/23 15:23 83 11/08/23 15:18 98 11/08/23 15:18 85 11/08/23 15:13 99 11/08/23 15:13 95 H 11/08/23 15:08 97 11/08/23 15:08 87 11/08/23 15:06 86 11/08/23 15:06 115/55 L 11/08/23 15:03 97 11/08/23 15:03 88 11/08/23 14:58 99 11/08/23 14:58 85 11/08/23 14:53 99 11/08/23 14:53 90 11/08/23 14:48 99 11/08/23 14:48 93 H 11/08/23 14:43 98 11/08/23 14:43 99 H 11/08/23 14:38 100 11/08/23 14:38 88 11/08/23 14:33 97 11/08/23 14:33 90 11/08/23 14:28 96 11/08/23 14:28 95 H 11/08/23 14:24 88 11/08/23 14:24 126/61 11/08/23 14:23 97 11/08/23 14:23 98 H 11/08/23 14:18 97 11/08/23 14:18 90 11/08/23 14:13 98 11/08/23 14:13 88 11/08/23 14:08 97 11/08/23 14:08 79 11/08/23 14:03 99 11/08/23 14:03 78 11/08/23 13:23 36.7 C 87 16 94 11/08/23 13:18 87 94 11/08/23 13:17 94 11/08/23 13:17 88 11/08/23 13:17 83 112/55 L 11/08/23 13:14 20 11/08/23 13:14 36.7 C 20 11/08/23 13:14 20 11/08/23 13:14 36.7 C 20 (2) Decreased movement affecting management of mother, antepartum Fetus number: single or unspecified fetus Qualified Code(s): O36.8190 - Decreased movements, unspecified trimester, not applicable or unspecified (7) Asthma Asthma complication type: unspecified Asthma persistence: unspecified Asthma severity: unspecified severity Qualified Code(s): J45.909 - Unspecified asthma, uncomplicated
--- NOTE | 2023-11-08 16:03 | Obstetrical Progress Note ---
Date of Service November 08, 2023 Subjective Patient is reevaluated. Terbutaline injection helped for about 15 to 5 minutes and then contractions came back. They were about the same. She p.o. Procardia and Tylenol and a waiting for the effect. heart rate reassuring, [place] showing mild contractions every 3 to 4 minutes, Plan to continue with IV fluids and p.o. Procardia as needed. All questions were answered. Results & Data Vital Signs (Past 12 Hours) Vital Signs Temp Pulse Resp BP Pulse Ox 11/08/23 15:58 98 11/08/23 15:58 83 11/08/23 15:53 98 11/08/23 15:53 85 11/08/23 15:48 97 11/08/23 15:48 87 11/08/23 15:43 97 11/08/23 15:43 87 11/08/23 15:38 98 11/08/23 15:38 85 11/08/23 15:33 100 11/08/23 15:33 84 11/08/23 15:23 99 11/08/23 15:23 83 11/08/23 15:18 98 11/08/23 15:18 85 11/08/23 15:13 99 11/08/23 15:13 95 H 11/08/23 15:08 97 11/08/23 15:08 87 11/08/23 15:06 86 11/08/23 15:06 115/55 L 11/08/23 15:03 97 11/08/23 15:03 88 11/08/23 14:58 99 11/08/23 14:58 85 11/08/23 14:53 99 11/08/23 14:53 90 11/08/23 14:48 99 11/08/23 14:48 93 H 11/08/23 14:43 98 11/08/23 14:43 99 H 11/08/23 14:38 100 11/08/23 14:38 88 11/08/23 14:33 97 11/08/23 14:33 90 11/08/23 14:28 96 11/08/23 14:28 95 H 11/08/23 14:24 88 11/08/23 14:24 126/61 11/08/23 14:23 97 11/08/23 14:23 98 H 11/08/23 14:18 97 11/08/23 14:18 90 11/08/23 14:13 98 11/08/23 14:13 88 11/08/23 14:08 97 11/08/23 14:08 79 11/08/23 14:03 99 11/08/23 14:03 78 11/08/23 13:23 36.7 C 87 16 94 11/08/23 13:18 87 94 11/08/23 13:17 94 11/08/23 13:17 88 11/08/23 13:17 83 112/55 L 11/08/23 13:14 20 11/08/23 13:14 36.7 C 20 11/08/23 13:14 20 11/08/23 13:14 36.7 C 20
[2023-11-08] MEDS: NIFEdipine EXTENDED REL 30 MG TABCR PO SCH (16:23)
[2023-11-08] MEDS ORDERED: ALBUTEROL HFA 8 GM INHALER INH PRN (17:25)
--- NOTE | 2023-11-08 17:47 | Consultation ---
Date of Consultation November 08, 2023 Assessment & Plan (1) Atypical chest pain: (2) History of VA (myocardial infarction): (3) Anxiety: (4) Tobacco abuse: (5) Asthma: (6) Bipolar disorder: (7) S/P tricuspid valve repair: (8) History of pulmonary embolism: (9) 33 weeks gestation of : (10) Gestational diabetes mellitus: Plan Pt is a [id number], 33 weeks with PMH significant for prior history of VA, Hx of IV drug abuse on suboxone, h/o tricuspid valve endocarditis s/p RV repair in 2015, bipolar disorder, PTSD, asthma, Hx of PE on Lovenox, tobacco and medical marijuana use, gestational DM who presented with contractions and decreased movements. She subsequently developed chest pain on 11/08 for which the hospitalist service was consulted. Atypical chest pain , 33 weeks On exam stated that chest pain started 1 hr ago, achy, constant, 4/10 in center of chest, radiates to shoulder blades, worse with sitting up, no associated SOB. Hx of GERD on prilosec. Significant cardiac Hx including Hx of infective endocarditis s/p tricuspid valvuloplasty Also Hx of PE currently on Lovenox. Currently denies lower extremity redness, tenderness or swelling Follows with [facility] Cardiology more frequently while especially at this stage. Per chart review, had a recent echo that noted mild pulm HTN, no right heart cath recommended while . Follows with [facility] cardiology locally annually. EKG on floor- NSR, hs-trop not elevated Trend trops, echo cardiology consulted, appreciate further recs -will defer on d-dimer as pt currently on anticoagulation and d-dimer can be elevated in -CTA PE protocol ordered by Cardiology Continue Lovenox 40mg SQ Telemetry monitoring Hypokalemia Replete as needed 33 Weeks Gestation Decreased Movement Contractions Pt presenting with concern for decreased movement and noted contractions movements currently present, resolved without intervention Pt currently on nifedipine and terbutaline for tocolytic therapy for contractions -continue per OB and Cardiology Continue with monitoring per OB Continue vitamin Continue valacyclovir prevention/suppressive therapy Gestational DM Glucose level mildly elevated at 102 AM [id number] Continue insulin glargine 10U qhs per primary team Hx of PE Chest CTA from Aug 2023 noting chronic PE Repeat CTA PE protocol as above ordered by Cardiology Continue Lovenox 40mg SQ Hx of IV drug use Reportedly last use in 2019 Continue subutex 0.5mg BID Asthma Continue flovent inhaler GERD Continue pantoprazole Tobacco use Encourage cessation Anxiety PTSD Bipolar Disorder Pt on medical marijuana CODE STATUS: Full code DVT prophylaxis: On Lovenox 40mg SQ Diet: OB diet Dispo: per primary team Thank you for this consultation. We will follow the patient with you during their hospital stay. You can reach a member of the [facility] Hospitalist Team 24/04 via the hospitalist role on tiger text. History of Present Illness Requesting Physician: Jaycee Chacon MD Reason for Consultation: Chest pain Attending Physician: Jaycee Chacon MD History of Present Illness Pt is a [id number], 33 weeks with PMH significant for prior history of VA, Hx of IV drug abuse on suboxone, h/o tricuspid valve endocarditis s/p RV repair in 2015, bipolar disorder, PTSD, asthma, Hx of PE on Lovenox, tobacco and medical marijuana use, gestational DM who presented with contractions and decreased movements. She subsequently developed chest pain on 11/08 for which the hospitalist service was consulted. States that the chest pain started about an hour before she was seen. Described the pain as achy, constant, 4/10 in center of chest, radiates to shoulder blades, worse with sitting up, no associated SOB. Hx of GERD on prilosec. Significant cardiac Hx including Hx of infective endocarditis s/p tricuspid valvuloplasty. Also Hx of PE currently on Lovenox. Denied lower extremity redness, tenderness or swelling Follows with [facility]iology more frequently while especially at this stage. Per chart review, had a recent echo that noted mild pulm HTN, no right heart cath recommended while . Follows with [facility] cardiology locally annually. Allergies Allergy/AdvReac Type Severity Reaction Status Date / Time cephalexin [From Keflex] AdvReac Mild Nausea Verified 11/08/23 14:16 doxycycline AdvReac Mild Nausea Verified 11/08/23 14:16 sulfamethoxazole AdvReac Mild Nausea Verified 11/08/23 14:16 [From Bactrim] trimethoprim [From Bactrim] AdvReac Mild Nausea Verified 11/08/23 14:16 Home Medications Medication Instructions Recorded Confirmed Type albuterol sulfate 90 mcg/actuation 2 puff inhalation QID PRN Wheezing 02/17/20 11/08/23 History aerosol inhaler (Ventolin HFA) fluticasone propionate 110 1 puff inhalation BID 03/11/21 11/08/23 History mcg/actuation HFA aerosol inhaler (Flovent HFA) fluticasone propionate 50 2 spray intranasal QAM PRN 03/11/21 11/08/23 History mcg/actuation nasal Shortness Of Breath Or Wheezing spray,suspension (Flonase Allergy Relief) valacyclovir 500 mg tablet 500 mg PO DAILY 01/23/23 11/08/23 History vit with calcium-iron 1 tab PO DAILY 08/02/23 11/08/23 History fum-folic acid 60 mg-0.8 mg tablet enoxaparin 40 mg/0.4 mL 40 mg subcut HS 09/05/23 11/08/23 History subcutaneous syringe Subutex 0.5 mg sublingual BID 11/08/23 11/08/23 History insulin glargine 100 unit/mL 10 unit subcut PM 11/08/23 11/08/23 History subcutaneous cartridge nifedipine 30 mg tablet,extended 30 mg PO BID #60 tabs 11/08/23 Rx release 24 hr (Procardia XL) omeprazole magnesium 20 mg 20 mg PO DAILY 11/08/23 11/08/23 History tablet,delayed release (Prilosec OTC) ondansetron HCl 4 mg tablet 4 mg PO Q6 PRN Nausea And Vomiting 11/08/23 11/08/23 History promethazine 25 mg rectal 25 mg OH Q6H PRN Nausea And 11/08/23 11/08/23 History suppository Vomiting Patient History Medical History Hepatitis C Nausea & vomiting Lab test negative for COVID-19 virus Shortness of breath Flu-like symptoms Infective endocarditis of tricuspid valve Palpitations (spontaneous vaginal delivery) 02/15/2009 Marginal insertion of umbilical cord Smoker Drug abuse Opiods, Methamphetamine. Patient reports she has been "clean" for 2 years. She currently use medical marijuana that is prescribed. Chest pain Tobacco abuse Smoke 1/2 PPD Bronchopneumonia Cough with hemoptysis Pneumonitis Heart failure History of seizure History of blood clots Alcohol abuse Patient denies Odontogenic infection of jaw Opioid dependence in remission History of pulmonary embolism Seizure NO MEDS -- LAST SEIZURE JULY (TOWARDS THE END) 2017. PSEUDOTREMORS. No medical. Chronic back pain Hepatitis C NO TREATMENT Post traumatic stress disorder Bipolar disorder no medications. states it was a misdiagnosis for ptsd. Depression No medications Anxiety Asthma PRN inhalers Myocardial Infarction At age 27. She was doing "Speed" at the time of VA, per the patient. Syncope Surgical History History of primary section History of primary section Patient is unsure of why she had a . Reports "a lot of bleeding" H/O tricuspid valve replacement 2016 History of section History of esophagogastroduodenoscopy (EGD) History of colonoscopy History of cholecystectomy History of tonsillectomy History of adenoidectomy S/P tricuspid valve repair 2014 Family History Grandfather Stroke Heart disease Mother Hypertension Heart disease Father Hypertension Other Hepatitis C Social History Smoking Status: Former smoker Tobacco Type: Cigarettes packs per day: 1; Second Hand Exposure: No; Do You Dip or Chew Tobacco: No; Tobacco Cessation Education Requested by Patient: No Hx Alcohol Use: No Hx Substance Use: Yes Prescribed Medications: Marijuana Prescribed Medications Comment: has medical marijuana card Last Used Substance: Hours (ago) Last Used Substance Other:: 2019 - opiates, methamphetamine, heroine, bath salts Substance Use Type Other:: daily Preferred Language: Vietnamese Communication Ability: Effective Visual Impairment: No Limitations Hearing Ability: Normal Associate Professor Plant Pathology Required: No Beliefs That Will Affect Care: None marital status: Single Current Living Situation: Family Current Living Situation Comment: lives with boyfriend and 3 year old segun current occupational status: employed 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 No acute distress Skin: surgical scar noted on anterior chest wall Psych: Appropriate mood and affect Neuro: No gross deficits HEENT: NC/AT Chest: Nontender to palpation. CV: RRR Resp: Breath sounds clear bilaterally, no increased effort of breathing. No crackles/rhonchi/rales. Abdomen: Soft, gravid Extremities: No edema in lower extremities bilaterally. No calf tenderness Results & Data Vital Signs (Past 12 Hours) Vital Signs Temp Pulse Resp BP Pulse Ox 11/08/23 17:43 100 11/08/23 17:43 77 11/08/23 17:38 100 11/08/23 17:38 82 11/08/23 17:33 99 11/08/23 17:33 79 11/08/23 17:28 99 11/08/23 17:28 83 11/08/23 17:23 99 11/08/23 17:23 79 11/08/23 17:18 98 11/08/23 17:18 81 11/08/23 17:13 99 11/08/23 17:13 81 11/08/23 17:09 81 11/08/23 17:09 107/55 L 11/08/23 17:08 99 11/08/23 17:08 88 11/08/23 17:03 100 11/08/23 17:03 82 11/08/23 16:58 99 11/08/23 16:58 86 11/08/23 16:53 97 11/08/23 16:53 88 11/08/23 16:48 99 11/08/23 16:48 86 11/08/23 16:43 98 11/08/23 16:43 88 11/08/23 16:38 98 11/08/23 16:38 77 11/08/23 16:33 97 11/08/23 16:33 84 11/08/23 16:28 96 11/08/23 16:28 82 11/08/23 16:24 89 11/08/23 16:24 104/59 L 11/08/23 16:23 99 11/08/23 16:23 85 11/08/23 16:18 98 11/08/23 16:18 81 11/08/23 16:13 97 11/08/23 16:13 84 11/08/23 16:08 98 11/08/23 16:08 85 11/08/23 16:03 99 11/08/23 16:03 84 11/08/23 15:58 98 11/08/23 15:58 83 11/08/23 15:53 98 11/08/23 15:53 85 11/08/23 15:48 97 11/08/23 15:48 87 11/08/23 15:43 97 11/08/23 15:43 87 11/08/23 15:38 98 11/08/23 15:38 85 11/08/23 15:33 100 11/08/23 15:33 84 11/08/23 15:23 99 11/08/23 15:23 83 11/08/23 15:18 98 11/08/23 15:18 85 11/08/23 15:13 99 11/08/23 15:13 95 H 11/08/23 15:08 97 11/08/23 15:08 87 11/08/23 15:06 86 11/08/23 15:06 115/55 L 11/08/23 15:03 97 11/08/23 15:03 88 11/08/23 14:58 99 11/08/23 14:58 85 11/08/23 14:53 99 11/08/23 14:53 90 11/08/23 14:48 99 11/08/23 14:48 93 H 11/08/23 14:43 98 11/08/23 14:43 99 H 11/08/23 14:38 100 11/08/23 14:38 88 11/08/23 14:33 97 11/08/23 14:33 90 11/08/23 14:28 96 11/08/23 14:28 95 H 11/08/23 14:24 88 11/08/23 14:24 126/61 11/08/23 14:23 97 11/08/23 14:23 98 H 11/08/23 14:18 97 11/08/23 14:18 90 11/08/23 14:13 98 11/08/23 14:13 88 11/08/23 14:08 97 11/08/23 14:08 79 11/08/23 14:03 99 11/08/23 14:03 78 11/08/23 13:23 36.7 C 87 16 94 11/08/23 13:18 87 94 11/08/23 13:17 94 11/08/23 13:17 88 11/08/23 13:17 83 112/55 L 11/08/23 13:14 20 11/08/23 13:14 36.7 C 20 11/08/23 13:14 20 11/08/23 13:14 36.7 C 20 (5) Asthma Asthma complication type: unspecified Asthma persistence: unspecified Asthma severity: unspecified severity Qualified Code(s): J45.909 - Unspecified asthma, uncomplicated
--- NOTE | 2023-11-08 18:01 | Obstetrical Progress Note ---
Date of Service November 08, 2023 Subjective Patient started to complain of Chest pain about 1/2 hour ago It is in the middle of her chest and between her shoulder blades in the back. No SOB/ Palpitation contractions spaced out She had SI this morning. VSS Afebrile Pulse O2 100% RA She seems comfortable Stat ECG WNL, normal sinus rhtym I called Hospitalist for consult and awaiting for them FHR reassuring Continue to monitor closely. Results & Data Vital Signs (Past 12 Hours) Vital Signs Temp Pulse Resp BP Pulse Ox 11/08/23 17:53 99 11/08/23 17:53 81 11/08/23 17:48 100 11/08/23 17:48 82 11/08/23 17:43 100 11/08/23 17:43 77 11/08/23 17:38 100 11/08/23 17:38 82 11/08/23 17:33 99 11/08/23 17:33 79 11/08/23 17:28 99 11/08/23 17:28 83 11/08/23 17:23 99 11/08/23 17:23 79 11/08/23 17:18 98 11/08/23 17:18 81 11/08/23 17:13 99 11/08/23 17:13 81 11/08/23 17:09 81 11/08/23 17:09 107/55 L 11/08/23 17:08 99 11/08/23 17:08 88 11/08/23 17:03 100 11/08/23 17:03 82 11/08/23 17:00 16 11/08/23 17:00 16 11/08/23 16:58 99 11/08/23 16:58 86 11/08/23 16:53 97 11/08/23 16:53 88 11/08/23 16:48 99 11/08/23 16:48 86 11/08/23 16:43 98 11/08/23 16:43 88 11/08/23 16:38 98 11/08/23 16:38 77 11/08/23 16:33 97 11/08/23 16:33 84 11/08/23 16:28 96 11/08/23 16:28 82 11/08/23 16:24 89 11/08/23 16:24 104/59 L 11/08/23 16:23 99 11/08/23 16:23 85 11/08/23 16:18 98 11/08/23 16:18 81 11/08/23 16:13 97 11/08/23 16:13 84 11/08/23 16:08 98 11/08/23 16:08 85 11/08/23 16:03 99 11/08/23 16:03 84 11/08/23 15:58 98 11/08/23 15:58 83 11/08/23 15:53 98 11/08/23 15:53 85 11/08/23 15:48 97 11/08/23 15:48 87 11/08/23 15:43 97 11/08/23 15:43 87 11/08/23 15:38 98 11/08/23 15:38 85 11/08/23 15:33 100 11/08/23 15:33 84 11/08/23 15:23 99 11/08/23 15:23 83 11/08/23 15:18 98 11/08/23 15:18 85 11/08/23 15:13 99 11/08/23 15:13 95 H 11/08/23 15:08 97 11/08/23 15:08 87 11/08/23 15:06 86 11/08/23 15:06 115/55 L 11/08/23 15:03 97 11/08/23 15:03 88 11/08/23 14:58 99 11/08/23 14:58 85 11/08/23 14:53 99 11/08/23 14:53 90 11/08/23 14:48 99 11/08/23 14:48 93 H 11/08/23 14:43 98 11/08/23 14:43 99 H 11/08/23 14:38 100 11/08/23 14:38 88 11/08/23 14:33 97 11/08/23 14:33 90 11/08/23 14:28 96 11/08/23 14:28 95 H 11/08/23 14:24 88 11/08/23 14:24 126/61 11/08/23 14:23 97 11/08/23 14:23 98 H 11/08/23 14:18 97 11/08/23 14:18 90 11/08/23 14:13 98 11/08/23 14:13 88 11/08/23 14:08 97 11/08/23 14:08 79 11/08/23 14:03 99 11/08/23 14:03 78 11/08/23 13:23 36.7 C 87 16 94 11/08/23 13:18 87 94 11/08/23 13:17 94 11/08/23 13:17 88 11/08/23 13:17 83 112/55 L 11/08/23 13:14 20 11/08/23 13:14 36.7 C 20 11/08/23 13:14 20 11/08/23 13:14 36.7 C 20
[2023-11-08 18:36] LABS: Troponin I High Sensitivity 2.9 pg/ml (0-14)
[2023-11-08] MEDS ORDERED: PROMETHAZINE HCL 25 MG SUPP PR PRN (18:50)
[2023-11-08] MEDS ORDERED: ONDANSETRON 4 MG OD TAB PO PRN (18:50)
[2023-11-08] MEDS: PRENATAL VITAMIN 1 TAB PO SCH (19:14)
[2023-11-08] MEDS: ONDANSETRON INJ 2 MG/ML 2 ML VIAL IV PRN (19:14)
[2023-11-08] MEDS: PANTOprazole 40 MG TAB PO SCH (19:45)
--- NOTE | 2023-11-08 20:10 | Cardiology Consultation ---
Date of Consultation November 08, 2023 Assessment & Plan (1) Atypical chest pain: (2) S/P tricuspid valve repair: (3) Opioid dependence in remission: (4) Decreased movement affecting management of mother, antepartum: (5) uterine contractions in third trimester, antepartum: Plan 33 year old female (1) Atypical chest pain: Patient with vague 3/10 chest discomfort that radiated to her shoulder blades. On physical exam she is in no acute distress. EKG x 2 is reassuring. High-sensitivity troponin x 1 performed just after 1400 today was negative and a second measurement was obtained at the time my assessment at 20:01 is also normal with levels of 2.9 and 2.4 pg/ml respectively. My index of suspicion for the patient having an acute coronary syndrome is low. She does however have a history of past pulmonary embolism first noted at age of 20, before her diagnosis of tricuspid valve endocarditis. A CT angiogram of the chest performed in December, revealed no pulmonary emboli, however repeat study in August, suggested several linear filling defects in the segmental branches of the lower lobes and lingula consistent with nonocclusive chronic pulmonary emboli as per the radiology report at that time. Patient has been on DVT prophylaxis dose Lovenox, 40 mg subcutaneously daily during her , most recent dose this morning. A repeat CT angiogram has been ordered. Patient is currently in room 427 on the mother-baby unit, and she is to go for the CT angiogram and radiology, and efforts are underway to transfer her to a telemetry bed where she could receive the cardiac monitoring as well as ongoing monitoring. Potassium replacement ordered. (2) S/P tricuspid valve repair: Most recent transthoracic echocardiogram is delineated in the patient's past medical history. She also had a transesophageal echocardi[facility] in 2021 with stable findings. Plan on repeat echocardiogram which can be performed tomorrow 11/09/2023. (3) Opioid dependence in remission: Patient has been abstinent of opioid use since 2019 (4) Decreased movement affecting management of mother, antepartum: Reassuring findings noted thus far on monitor as per TRANSFER DRIVER (5) uterine contractions in third trimester, antepartum: I agree with tocolytic therapy as already prescribed by the TRANSFER DRIVER service including nifedipine and terbutaline monitoring as recommended by TRANSFER DRIVER Patient seen in collaboration with Dr. Chacon of stitcher operator and plan discussed for the purpose of coordination of care. I spent a total of 65 minutes on the date of service in preparation, delivery, and documentation of the care provided to this patient, excluding any time spent in the performance of separately billed services. Addendum: Report of CTA chest reviewed: Summary as per radiology report: No central pulmonary embolism. Evaluation is severely limited due to suboptimal contrast bolus timing. Consider repeat exam. -- Proceed with plans for repeat echocardiogram on 11/09/2023. --Repeat CT angiogram could be considered, but would allow some time to allow recovery between contrast exposure --Clinically, at present, my index of suspicion for pulmonary embolism is relatively low and the current CT angiogram is felt to to offer some degree of reassurance. I do not think that proceeding with a D-dimer would be of help because the D- dimer was elevated back in August, and her D-dimer could certainly be elevated due to other reasons especially in the setting of so I do not think it would be helpful as a screening test. Given low index of suspicion, favor ongoing observation without initiating full anticoagulation dose anticoagulation in the setting of and premature contractions. Dinesh DO Sudhir 11/08/23 : 9:27 pm. History of Present Illness Attending Physician: Jaycee Chacon MD History of Present Illness Nancy Hernandez is a 33 year old female seen in cardiology consultation per the request of Dr Hendricks and Dr Chacon for the evaluation of chest discomfort. Patient is -1-0-2 at 33 weeks and 4 days of gestation and initially presented today after concerns that she did not feel the baby moving. She first noticed this at about 1230 while she was at a noontime meeting. She called her doctor, and was directed to come to the hospital. She was seen by TRANSFER DRIVER and the monitor revealed appropriate findings. Patient was found to have regular contractions and thus far has received nifedipine and terbutaline for tocolytic properties. At just after 1700 the patient described midline chest discomfort that radiated toward her shoulder blades, 3/10 in intensity, that has waxed and waned in the interim time. During my assessment, patient notes that discomfort is still there to a mild extent, but she is not in any distress. She does have a history of chest discomfort, and this has been noted at the time of previous outpatient cardiology visit in September, however the patient is not able to characterize whether or not this is different from what she has felt before. She has a history of pulmonary embolism that she describes was diagnosed at the age of 20 in the setting of an oral contraceptive. She had completed a course of warfarin at that time. She is not on chronic anticoagulation but has noted that with her pregnancies she has been prescribed DVT prophylaxis dose Lovenox and has been maintained on Lovenox 40 mg subcutaneous daily throughout this . On 08/02/2023 she had presented to the emergency department with concerns of chest discomfort and was found to have an elevated D-dimer. She underwent a CT angiogram that revealed a few linear filling defects within the segmental branches of the lower lobes and lingula and per cariology report this was felt to be consistent with nonocclusive chronic pulmonary emboli. Ongoing treatment with DVT prophylaxis Lovenox was pursued at that time. The patient has a complex cardiac history as described below and follows locally with [facility] as well as with cardiology at [facility]. History: Tricuspid valve infective endocarditis diagnosed in 2016 felt to be related to IV drug use at that time and underwent cardiac catheterization at [facility] 07/26/2016 with no obstructive CAD. 08/09/2016, underwent surgical tricuspid valve repair with placement of a 26 mm triad ring as well as surgical PFO closure Past evaluation with dobutamine stress echocardiogram, 2018, [facility], negative for ischemia Exercise stress echocardiogram, 03/01/2023, [facility], negative for ischemia high workload achieved Transthoracic echocardiogram, July,, [facility], left ventricle noted to be mildly dilated, ejection fraction in the range of 60 to 65% with normal wall motion, moderate left atrial dilatation, mild right atrial dilatation, tricuspid valvuloplasty ring with mild to moderate tricuspid regurgitation and no significant tricuspid stenosis, mildly elevated right ventricular systolic pressure estimated be 41 mmHg, unchanged as compared to previous study performed in October, Summary of transesophageal echocardiogram performed at [facility] dated 10/05/2021: There is a tricuspid valve annuloplasty ring present. There is moderate tricuspid valve regurgitation. No obvious vegetation or intracardiac masses are noted. The patient has had PFO surgically closed. There were a small number of bubbles noted late after injection suggesting an intrapulmonary shunt or a very small residual intra-atrial shunt Summary of transthoracic echocardiogram performed 10/18/[address] [facility]: LVEF 60 to 64% No left ventricular segmental wall motion abnormalities The right ventricular systolic function was normal as assessed by tricuspid annular plane excursion I tricuspid valve annuloplasty ring is present. There is moderate tricuspid valve prosthesis regurgitation The estimated pulmonary artery systolic pressure= 28 mmHg The right atrium is mildly enlarged Allergies Allergy/AdvReac Type Severity Reaction Status Date / Time cephalexin [From Keflex] AdvReac Mild Nausea Verified 11/08/23 14:16 doxycycline AdvReac Mild Nausea Verified 11/08/23 14:16 sulfamethoxazole AdvReac Mild Nausea Verified 11/08/23 14:16 [From Bactrim] trimethoprim [From Bactrim] AdvReac Mild Nausea Verified 11/08/23 14:16 Home Medications Medication Instructions Recorded Confirmed Type albuterol sulfate 90 mcg/actuation 2 puff inhalation QID PRN Wheezing 02/17/20 11/08/23 History aerosol inhaler (Ventolin HFA) fluticasone propionate 110 1 puff inhalation BID 03/11/21 11/08/23 History mcg/actuation HFA aerosol inhaler (Flovent HFA) fluticasone propionate 50 2 spray intranasal QAM PRN 03/11/21 11/08/23 History mcg/actuation nasal Shortness Of Breath Or Wheezing spray,suspension (Flonase Allergy Relief) valacyclovir 500 mg tablet 500 mg PO DAILY 01/23/23 11/08/23 History vit with calcium-iron 1 tab PO DAILY 08/02/23 11/08/23 History fum-folic acid 60 mg-0.8 mg tablet enoxaparin 40 mg/0.4 mL 40 mg subcut HS 09/05/23 11/08/23 History subcutaneous syringe Subutex 0.5 mg sublingual BID 11/08/23 11/08/23 History insulin glargine 100 unit/mL 10 unit subcut PM 11/08/23 11/08/23 History subcutaneous cartridge nifedipine 30 mg tablet,extended 30 mg PO BID #60 tabs 11/08/23 Rx release 24 hr (Procardia XL) omeprazole magnesium 20 mg 20 mg PO DAILY 11/08/23 11/08/23 History tablet,delayed release (Prilosec OTC) ondansetron HCl 4 mg tablet 4 mg PO Q6 PRN Nausea And Vomiting 11/08/23 11/08/23 History promethazine 25 mg rectal 25 mg MA Q6H PRN Nausea And 11/08/23 11/08/23 History suppository Vomiting Patient History Medical History Hepatitis C Nausea & vomiting Lab test negative for COVID-19 virus Shortness of breath Flu-like symptoms Infective endocarditis of tricuspid valve Palpitations (spontaneous vaginal delivery) 02/15/2009 Marginal insertion of umbilical cord Smoker Drug abuse Opiods, Methamphetamine. Patient reports she has been "clean" for 2 years. She currently use medical marijuana that is prescribed. Chest pain Tobacco abuse Smoke 1/2 PPD Bronchopneumonia Cough with hemoptysis Pneumonitis Heart failure History of seizure History of blood clots Alcohol abuse Patient denies Odontogenic infection of jaw Opioid dependence in remission History of pulmonary embolism Seizure NO MEDS -- LAST SEIZURE JULY (TOWARDS THE END) 2017. PSEUDOTREMORS. No medical. Chronic back pain Hepatitis C NO TREATMENT Post traumatic stress disorder Bipolar disorder no medications. states it was a misdiagnosis for ptsd. Depression No medications Anxiety Asthma PRN inhalers Myocardial Infarction At age 27. She was doing "Speed" at the time of AL, per the patient. Syncope Surgical History History of primary section History of primary section Patient is unsure of why she had a . Reports "a lot of bleeding" H/O tricuspid valve replacement 2016 History of section History of esophagogastroduodenoscopy (EGD) History of colonoscopy History of cholecystectomy History of tonsillectomy History of adenoidectomy S/P tricuspid valve repair 2015 Family History Grandfather Stroke Heart disease Mother Hypertension Heart disease Father Hypertension Other Hepatitis C Social History Smoking Status: Former smoker Tobacco Type: Cigarettes packs per day: 1; Second Hand Exposure: No; Do You Dip or Chew Tobacco: No; Tobacco Cessation Education Requested by Patient: No Hx Alcohol Use: No Hx Substance Use: Yes Prescribed Medications: Marijuana Prescribed Medications Comment: has medical marijuana card Last Used Substance: Hours (ago) Last Used Substance Other:: 2019 - opiates, methamphetamine, heroine, bath salts Substance Use Type Other:: daily Preferred Language: Azerbaijani Communication Ability: Effective Visual Impairment: No Limitations Hearing Ability: Normal Finance Teacher Required: No Beliefs That Will Affect Care: None marital status: Single Current Living Situation: Family Current Living Situation Comment: lives with boyfriend and 3 year old segun current occupational status: employed 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 [employer] Other Information That Helps Us Care for You: No Feels Safe at Home: Yes Safety Concerns: Feels Safe At This Time Diet: regular Assistive Devices: Glasses Review of Systems Review of Systems: All systems reviewed & are unremarkable except as noted in HPI & below Physical Exam Physical Exam: Temp Pulse Resp BP Pulse Ox 36.8 C 86 20 116/58 L 97 11/08/23 19:09 11/08/23 20:21 11/08/23 19:09 11/08/23 19:09 11/08/23 20:21 Constitutional: WD/WN, vitals as above Respiratory: normal respiratory effort, lungs clear to auscultation Cardiovascular: RRR, no murmur, no edema Gastrointestinal (Abdomen): not examined Neurologic: PERRL, EOMI, accommodation nl, no face palsy, no dysarthria Psychiatric: A+Ox3, euthymic affect Results & Data Laboratory Results Cardiac Enzymes 11/08/23 Range/Units 14:24 AST 15 (13-39) U/L Troponin I High Sens 2.9 (0-14) pg/ml CBC 11/08/23 Range/Units 14:24 WBC 10.16 (4.8-10.8) K/ul RBC 3.76 L (4.20-5.40) M/uL Hgb 12.5 (12.0-16.0) g/dl Hct 35.8 L (37.0-47.0) % Plt Count 126 L (130-400) K/uL Neut # (Auto) 6.48 (1.40-6.50) K/uL Lymph # (Auto) 2.24 (1.20-3.40) K/uL [place] # (Auto) 1.26 H (0.11-0.59) K/uL Eos # (Auto) 0.04 (0.00-0.50) K/uL Baso # (Auto) 0.03 (0.00-0.20) K/uL Comprehensive Metabolic Panel 11/08/23 Range/Units 14:24 Sodium 133 L (136-145) mmol/L Potassium 3.2 L (3.5-5.1) mmol/L Chloride 103 (98-107) mmol/L Carbon Dioxide 22 (21-32) mmol/L BUN 5 L (6-23) mg/dl Creatinine 0.35 L (0.6-1.2) mg/dl Glucose 102 H (70-99(Fasting)) mg/dl Calcium 8.4 L (8.6-10.3) mg/dl AST 15 (13-39) U/L ALT 12 (7-52) U/L Alkaline Phosphatase 113 H (34-104) U/L Total Protein 6.1 (6.0-8.3) gm/dl Albumin 3.4 (3.4-5.0) gm/dl Intake and Output 11/08/23 11/08/23 11/08/23 06:59 14:59 22:59 Intake Total 1000.000 / 1000.000 Output Total 400 / 400 Balance 600.000 / 600.000 Intake: IV 1000.000 / 1000.000 Lactated Ringer's 1,000 ml @ 1000.000 / 1000.000 125 mls/hr IV .Q8H [facility] Rx#: [id number] Output: Urine 400 / 400 Other: Weight 85.275 kg Weight Measurement Method Stated by Patient Patient Weight 11/09/23 06:59 Weight 85.275 kg Diagnostic Findings EKG performed today 11/08/2023 at 1743 and interpreted independently: Sinus rhythm at 77 bpm, Rsr' pattern noted in lead V1 consistent with a right-sided intraventricular conduction delay, normal ST segments, no evidence of ischemia Repeat tracing performed 11/12/2023 at 20: 11 hours was relatively unchanged, with noted findings of left atrial lodgment as well consistent with her history. Once again sinus rhythm at 81 bpm, possible left atrial enlargement, no significant repolarization abnormalities. Findings of right-sided intraventricular conduction delay once again noted (4) Decreased movement affecting management of mother, antepartum Fetus number: single or unspecified fetus Qualified Code(s): O36.8190 - Decreased movements, unspecified trimester, not applicable or unspecified
--- NOTE | 2023-11-08 20:21 | Obstetrical Progress Note ---
Date of Service November 08, [address] Peguero, from cardiology is here. Recommended her to be on telemetry and CT of chest, repeat ECG, Troponin now and in am. He is okay with PO Procardia and SQ Terbutaline as needed to stop contractions. Repeat ECG is WNL CP is better Contractions are about the same, does not need pain meds. Continue to monitor closely. Will follow with NST at PCU unit. Results & Data Vital Signs (Past 12 Hours) Vital Signs Temp Pulse Resp BP Pulse Ox 11/08/23 20:16 98 11/08/23 20:16 92 H 11/08/23 20:11 99 11/08/23 20:11 89 11/08/23 20:06 99 11/08/23 20:06 99 H 11/08/23 20:01 98 11/08/23 20:01 92 H 11/08/23 19:56 98 11/08/23 19:56 83 11/08/23 19:51 97 11/08/23 19:51 79 11/08/23 19:46 98 11/08/23 19:46 83 11/08/23 19:41 97 11/08/23 19:41 80 11/08/23 19:36 98 11/08/23 19:36 93 H 11/08/23 19:31 98 11/08/23 19:31 82 11/08/23 19:26 98 11/08/23 19:26 102 H 11/08/23 19:14 97 11/08/23 19:14 83 11/08/23 19:09 36.8 C 20 11/08/23 19:09 99 11/08/23 19:09 85 11/08/23 19:09 85 11/08/23 19:09 116/58 L 11/08/23 19:04 98 11/08/23 19:04 94 H 11/08/23 19:00 18 11/08/23 19:00 18 11/08/23 18:59 98 11/08/23 18:59 95 H 11/08/23 18:54 98 11/08/23 18:54 86 11/08/23 18:49 98 11/08/23 18:49 89 11/08/23 18:44 99 11/08/23 18:44 88 11/08/23 18:39 99 11/08/23 18:39 88 11/08/23 18:34 99 11/08/23 18:34 93 H 11/08/23 18:29 100 11/08/23 18:29 82 11/08/23 18:23 99 11/08/23 18:23 83 11/08/23 18:18 99 11/08/23 18:18 80 11/08/23 18:13 100 11/08/23 18:13 82 11/08/23 18:08 96 11/08/23 18:08 74 11/08/23 18:03 97 11/08/23 18:03 77 11/08/23 17:58 99 11/08/23 17:58 79 11/08/23 17:53 99 11/08/23 17:53 81 11/08/23 17:48 100 11/08/23 17:48 82 11/08/23 17:43 100 11/08/23 17:43 77 11/08/23 17:38 100 11/08/23 17:38 82 11/08/23 17:33 99 11/08/23 17:33 79 11/08/23 17:28 99 11/08/23 17:28 83 11/08/23 17:23 99 11/08/23 17:23 79 11/08/23 17:18 98 11/08/23 17:18 81 11/08/23 17:13 99 11/08/23 17:13 81 11/08/23 17:09 81 11/08/23 17:09 107/55 L 11/08/23 17:08 99 11/08/23 17:08 88 11/08/23 17:03 100 11/08/23 17:03 82 11/08/23 17:00 16 11/08/23 17:00 16 11/08/23 16:58 99 11/08/23 16:58 86 11/08/23 16:53 97 11/08/23 16:53 88 11/08/23 16:48 99 11/08/23 16:48 86 11/08/23 16:43 98 11/08/23 16:43 88 11/08/23 16:38 98 11/08/23 16:38 77 11/08/23 16:33 97 11/08/23 16:33 84 11/08/23 16:28 96 11/08/23 16:28 82 11/08/23 16:24 89 11/08/23 16:24 104/59 L 11/08/23 16:23 99 11/08/23 16:23 85 11/08/23 16:18 98 11/08/23 16:18 81 11/08/23 16:13 97 11/08/23 16:13 84 11/08/23 16:08 98 11/08/23 16:08 85 11/08/23 16:03 99 11/08/23 16:03 84 11/08/23 15:58 98 11/08/23 15:58 83 11/08/23 15:53 98 11/08/23 15:53 85 11/08/23 15:48 97 11/08/23 15:48 87 11/08/23 15:43 97 11/08/23 15:43 87 11/08/23 15:38 98 11/08/23 15:38 85 11/08/23 15:33 100 11/08/23 15:33 84 11/08/23 15:23 99 11/08/23 15:23 83 11/08/23 15:18 98 11/08/23 15:18 85 11/08/23 15:13 99 11/08/23 15:13 95 H 11/08/23 15:08 97 11/08/23 15:08 87 11/08/23 15:06 86 11/08/23 15:06 115/55 L 11/08/23 15:03 97 11/08/23 15:03 88 11/08/23 14:58 99 11/08/23 14:58 85 11/08/23 14:53 99 11/08/23 14:53 90 11/08/23 14:48 99 11/08/23 14:48 93 H 11/08/23 14:43 98 11/08/23 14:43 99 H 11/08/23 14:38 100 11/08/23 14:38 88 11/08/23 14:33 97 11/08/23 14:33 90 11/08/23 14:28 96 11/08/23 14:28 95 H 11/08/23 14:24 88 11/08/23 14:24 126/61 11/08/23 14:23 97 11/08/23 14:23 98 H 11/08/23 14:18 97 11/08/23 14:18 90 11/08/23 14:13 98 11/08/23 14:13 88 11/08/23 14:08 97 11/08/23 14:08 79 11/08/23 14:03 99 11/08/23 14:03 78 11/08/23 13:23 36.7 C 87 16 94 11/08/23 13:18 87 94 11/08/23 13:17 94 11/08/23 13:17 88 11/08/23 13:17 83 112/55 L 11/08/23 13:14 20 11/08/23 13:14 36.7 C 20 11/08/23 13:14 20 11/08/23 13:14 36.7 C 20
[2023-11-08] MEDS: POTASSIUM CHLORIDE CRTAB 20 MEQ TABCR PO STA (20:23)
[2023-11-08] MEDS: buprenorphine HCL 2 MG SUBL SL SCH (20:25)
[2023-11-08] MEDS: BETAMETH SOD PHOS/ACETATE IA 6 MG/ML IM STA (20:30)
[2023-11-08] MEDS: OPTIRAY 320 125ml IV ONE (20:46)
[2023-11-08] MEDS: ENOXAPARIN INJ 40 MG/0.4 ML SYR SQ SCH (21:01)
--- NOTE | 2023-11-08 21:11 | CT Scan Report ---
Exam(s): CTA CHEST IV Amt: 118 cc opti 320 EXAM: CT Angiography Chest With Intravenous Contrast CLINICAL HISTORY: Reason for exam: chest pain, pulmonary embolism protocol. TECHNIQUE: Axial computed tomographic angiography images of the chest with intravenous contrast. Automated exposure control was utilized for the study. A dose lowering technique was utilized adhering to the principles of ALARA. MIP reconstructed images were created and reviewed. COMPARISON: No relevant prior studies available. FINDINGS: Pulmonary arteries: No large or central pulmonary embolism. Evaluation is limited due to suboptimal contrast bolus timing. The need for repeat exam should be determined clinically. Aorta: No acute findings. No thoracic aortic aneurysm. Lungs: Mild scarring/atelectasis at the lung bases. No mass. Pleural space: Unremarkable. No significant effusion. No pneumothorax. Heart: Unremarkable. No cardiomegaly. No significant pericardial effusion. No evidence of RV dysfunction. Bones/joints: Sternotomy wires. No acute fracture. No dislocation. Soft tissues: Unremarkable. Lymph nodes: Unremarkable. No enlarged lymph nodes. IMPRESSION: No central pulmonary embolism. Evaluation is severely limited due to suboptimal contrast bolus timing. Consider repeat exam. Electronically signed by: Yon Mares MD 11/08/23 21:10 PM
[2023-11-08] MEDS: LANTUS PER UNIT CHARGE SQ SCH (21:12)
--- OUTSIDE RECORDS SUMMARY | 2023-11-08 22:10 | External Medical Summary | Summary of Care ---
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 ERLTCS. Last in 2019 at [facility] [place]. Desires repeat with tubal at [facility] [place]. Last Assessment & Plan: Planning ERCD History of [place] (myocardial infarction) 07/27/2018 Overview: Age 27, s/p drug withdraw. Normal heart cath. 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 Has cut down usage significantly and plans to stop in the next week Last Assessment & Plan: CONSIDERATIONS: Chemicals found in marijuana, such as tetrahydrocannabinol (THC), are distributed to the brain and fat and cross the placenta. THC also appears in breast milk. In utero exposure is associated with short and long-term morbidity. A positive screen result is reported to [facility]. RECOMMENDATIONS: Abstain from marijuana use in and while ; avoid secondhand exposure. Discontinue use of marijuana for medicinal purposes in favor of an alternative therapy for which there are better -specific safety data. History of vertebral fracture 11/16/2017 Overview: Thoracic. Has had 2 c/s sections with anesthesia. Denies requiring any surgery for her back. Last Assessment & Plan: -No contraindication to neuraxial anesthesia. Chronic thoracic back pain 10/02/2017 PTSD (post-traumatic stress disorder) 07/12/2017 H/O tricuspid valve repair 08/22/2016 Overview: S/p repair following endocarditis d/t IV drug use. Follows annually with Cardiology. Reports most recent ECHO (2022) showed improved EF. Last Assessment & Plan: She has a history of infective endocarditis resulting is septic emboli and subsequent valve repair. She was seen by cardiology on 02/27/20 and had an echo on 02/18/20. Cardiac function appeared normal on evaluation. She denies current cardiac symptoms such as arrhythmia or significant dyspnea. Estimated Date of Delivery Comme nts Yes 12/24/2023 Based on Ultraso und documented as of this encounter (statuses as of 11/08/2023) Resolved Problems Problem Noted Date Diagnosed Date Resolved Date Tricuspid valve replaced 01/12/2022 Unspecified asthma, uncomplicated 03/14/2021 01/12/2022 Depressive disorder 03/14/2021 01/13/20 22 delivery delivered 08/23/2020 10/06/2020 Drug use affecting 07/10/2020 10/06/2020 Overview: +marijuana Asthma during 05/04/202001/2021 Last Assessment & Plan: She reports well-controlled symptoms. She notes improvement with the cooler weather and is not using albuterol more than a couple times per week. Tobacco smoking complicating 05/04/2020 10/06/2020 Overview: Smoking 1/2 ppd Last Assessment & Plan: She continues to smoke 0.5 PPD. Cessation encouraged. Marginal insertion of umbili leyda cord affecting management of mother 05/04/2020 Last Assessment & Plan: She presents for follow-up of growth. At the last visit, a marginal cord insertion was noted. We reviewed the results of today's ultrasound. The estimated weight is appropriate for gestational age in the 65th percentile. The visualized anatomy is unremarkable in appearance. The DAVON is normal. The placental cord insertion is marginal vs velamentous. We discussed the placental cord insertion and potential implications for . The PCI is away from the cervix, so vasa previa should not occur. We discussed risk of cord avulsion with delivery of the placenta; however, she plans a repeat . I reassured her that the growth assessment today is normal. I recommended a follow-up visit in 6 weeks to reassess growth. Current tobacco use 01/31/2020 01/13/20 Marijuana use 01/31/2020 05/18/2023 Obesity in , antepartum 01/31/2020 03/13/2021 Obesity, Class I, BMI 30.0-3 4.9 (see actual BMI) 01/31/2020 10/06/2020 Drug abuse in remission 01/15/202012/31 Supervision of high-risk pre gnancy, unspecified trimester 01/14/2020 10/06/2020 Overview: Problem Action Taken Date entered Entered by Date resolved H/o drug use- No use in 10 months. Using medical marijuana through [facility] 01/14/2020 Angy Chase RN 01/14/2020 nutrition Due date letter given for WIC 01/14/2020 Angy Chase RN 01/14/2020 Smoker Cessation encouraged 01/14/2020 Angy Chase RN 01/14/2020 Problem Action Taken Date entered Entered by Date resolved Current needs or questions Smoking approx 1/2 ppd Patient denies having any current needs or questions 02/12/2020 Angy Chase RN 02/12/2020 Problem Action Taken Date entered Entered by Date resolved Nausea and vomiting due to 6 small meals discussed Nutrition Review 9 months booklet 04/17/2020 Angy Chase RN 04/17/2020 Problem Action Taken Date entered Entered by Date resolved Current needs or questions Patient denies having any current needs or questions 05/29/2020 Angy Chase RN 05/29/2020 Problem Action Taken Date entered Entered by Date resolved Current needs or questions Patient denies having any current needs or questions 06/25/2020 Lisset Gonzalez RN 06/25/2020 Problem Action Taken Date entered Entered by Date resolved Current needs or questions Patient denies having any current needs or questions 07/10/2020 Lisset Gonzalez RN 07/10/2020 Problem Action Taken Date entered Entered by Date resolved [employer] breastpump form completed and faxed to [facility] for pt. 07/23/2020 Lisset Gonzalez RN 07/23/2020 Problem Action Taken Date entered Entered by Date resolved Current needs or questions Patient denies having any current needs or questions 07/29/2020 Angy Chase RN 07/29/2020 Problem Action Taken Date entered Entered by Date resolved Current needs or questions Patient denies having any current needs or questions 08/07/2020 Lisset Gonzalez RN 08/07/2020 Hx of delivery, currently 01/14/2020 10/06/2020 Overview: Delivered at 35w0d Previously on Amber Stopped at 36w Opioid dependence, uncomplicated 01/16/2019 01/14/2020 Tobacco use disorder 01/16/2019 023 Last Assessment & Plan: Strongly advised patient to stop using tobacco. Discussed that tobacco use is associated with increased risks of spontaneous miscarriage, labor and delivery, premature rupture of membranes, growth restriction, stillbirth, SIDS postnatally, and placental abnormalities such as previa or abruption. Smoking cessation aids such as the nicotine patch or Zyban are considered safer alternatives to tobacco use during . Encouraged patient to discuss with her primary provider for prescribing. For patients who report smoking 1 pack per day of cigarettes or greater during , we recommend Maternal Medicine ultrasound for growth at 28-30 weeks. Advised patient that the most successful method to quit smoking is if those around you do not smoke as well. Vertigo 09/06/2018 03/13/2021 Memory changes 09/06/2018 03/13/2021 Seizure-like activity 09/06/20182019 Chronic hepatitis C without hepatic coma 02/27/2018 05/26/2020 Overview: HCV Not detected 07/24/2016, 05/15/2020 Discussed that in general, does not appear to alter the course of hepatitis C viral infection. Additionally, hepatitis C infection does not increase the risk for obstetric complications or teratogenicity. Treatments for hepatitis C infection are contraindicated during . Explained that there is a 4% to 7% risk of transmission of hepatitis C virus to the fetus in the [place]. The risk of transmission may be on the higher end of that spectrum with high maternal viral loads and on the lower end of that spectrum with low maternal viral counts. Counts below 100,000 IU/ml have a very low risk for vertical transmission. Discussed that there is no vaccine or immune globulin presently available to decrease the risk of transmission. Performance of a section to prevent vertical transmission has not been shown to be effective. is not contraindicated for mothers with hepatitis C infection. Counseled patient about safe sex practices to prevent transmission to sexual partners. Recommend vaccines for hepatitis A & B, pneumococcal vaccine and flu vaccine if not already given. Patients should limit drugs such as Tylenol, and alcohol which can cause further liver damage in higher doses. Recommend referral to GI specialist to discuss treatment options. Reviewed that the NIH recommends that infants born to HCV-positive mothers should be tested for HCV RNA on two occasions between the ages of 2 and 6 months and/or have tests for anti-HCV after 15 months of age. Newborns who have acquired HCV are virtually always asymptomatic. They may clear the disease spontaneously on their own or progress to chronic infection. However, the progression is generally slow and mild and rarely presents significant liver disease before 20 years of age. 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 11/07/2019 PTSD (post-traumatic stress disorder) 10/02/2017 08/02/2018 Generalized anxiety disorder 10/02/2017 01/12/2022 Bipolar 2 disorder 10/02/2017 0 Drug abuse 08/31/2017 03/13/2021 Overview: +opioids, amphedamines, marijuana on tox screen 07/31/18 at [facility] ED Bipolar 1 disorder 07/12/2017 8 Attention deficit hyperactiv ity disorder (ADHD), combined type 07/12/2017 11/07/2019 Seizure disorder 07/12/2017 11/07/2019 Pneumonitis 07/12/2017 02/27/2018 Bronchopneumonia 07/12/2017 02/27/2018 Pericarditis 11/04/2016 07/12/2017 Heart failure, diastolic, wi th acute decompensation 11/04/2016 11/04/2016 Pleural effusion 11/04/2016 07/12/2017 Anxiety 11/04/2016 01/19/2018 Tooth infection 08/02/2016 07/12/2017 Cough with hemoptysis 07/22/20162017 Pneumonia 07/22/2016 01/19/2018 Infective endocarditis 07/22/201607/12 Septic embolism 07/22/2016 07/12/2017 Overview: S/p thromboembolectomy IV drug abuse 07/22/2016 07/12/2017 Methamphetamine abuse 07/22/20162016 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 07/12/2017 Non compliance w medication regimen 07/22/2016 07/12/2017 History of vertebral fracture 11/16/2017 documented as of this encounter (statuses as of 11/08/2023) Immunizations Name Administration Dates Next Due COVID-19 mRNA, LNP-s, No Pre serve, 2-Dose Series (Moderna) 03/12/2022,02/10/2022 DTP Vaccine 09/02/1992, 2,1991,06/04 DTaP Dipth/Tet/Acell Pertussis (Infanrix), Peds 03/05/1996 HEP A - Hepatitis A (Adult > 18 yrs) 01/30/2019 HIB PRP-T, 4 dose (ActHib) 07/08/1992,,1991,06/04 HPV Vaccine, 4-Valent 07/14/2011,03/15/2011,12/01 HPV Vaccine, 9-Valent 07/14/2011,03/15/2011,12/01 Haemophilius B (HIB), unspecified 1991,1991,1991,06/04 Hepatitis B, 0-19 yrs 11/17/1997,09/15/1997,09/01 Hepatitis B, 20+ yrs 01/30/2019 MMR - Measles/Mumps/Rubella Vaccine 03/05/1996,1 OPV - Polio Virus Vaccine (Oral) 996,09/02/1992,1991,06/04 PPD 07/19/2022,07/11/2022 Pneumococcal Polysaccharide PPV23 (Pneumovax) 10/01/2019,02/11/2014 Seasonal Influenza, PF, 6 M & above, IM , (FluLaval or Fluzone) 08/09/2023,06/30/2022,08/30/2021,10/01,09/05/2018 TD - Tetanus/Diptheria (ADULT) 12/27/2002 TDAP (age 10 and older)(Boostrix) 10/04/2023,07/2020,09/05/2018 Varicella Vaccine (Chicken Pox) 2004 documented as of this encounter Social History Tobacco Use Types Packs/Day Years Used Date Smoking Tobacco: Former Cigarettes 1 15 2 007 - 2021 Smokeless Tobacco: Never Alcohol Use Standard Drinks/Week Comments Not Currently 0 (1 standard drink = 0.6 oz pur e alcohol) 2018 PHQ-2 Answer Date Recorded PHQ Adult Total Score 0 11/17/2022 Hunger Vital Sign Answer Date Recorded Within the past 12 months, y ou worried that your food would run out before you got the money to buy more. Sometimes true Within the past 12 months, t he food you bought just didn't last and you didn't have money to get more. Sometimes true 11/2022 [place] Depression Scale Answer Date Recorded R[place] Depression Scale Total 9 11/02/2023 The thought of harming myself has occurred to me . Never 11/02/2023 Estimated Date of Delivery Comme nts Yes 12/24/2023 Based on Ultraso und Sex and Gender Information Value Date Recorded Sex Assigned at Female 01/16/2019 4:19 PM EDT Gender Identity Female 01/16/2019 4:19 PM EDT Sexual Orientation Straight 01/16/2019 4: 19 PM EDT Job Start Date Occupation Industry Not on file Not on file Not on file documented as of this encounter Functional Status Functional Status Response Date of Assess ment Are you deaf or do you have serious difficulty h earing? No 10/27/2016 Are you blind or do you have serious difficulty seeing, even when wearing glasses? No 10/27/2016 Do you have serious difficul ty walking or climbing stairs? (5 years old or older) No 10/27/2016 Do you have difficulty dress ing or bathing? (5 years old or older) No 10/27/2016 Because of a physical, menta l, or emotional condition, do you have difficulty doing errands alone such as visiting a doctor s office or shopping? (15 years old or older) No 10/27/19 17 Cognitive Status Response Date of Assessm ent Because of a physical, menta l, or emotional condition, do you have serious difficulty concentrating, remembering, or making decisions? (5 years old or older) No 10/27/2016 documented as of this encounter Miscellaneous Notes * Telephone Encounter - Leatha Degroot PA-C - 11/08/2023 7:44 AM ESTSigned Prescriptions: Disp Refills Ondansetron 4 MG Oral Tablet Disintegratin*10 Tab*0 Sig: PLACE 1TABLET ON TONGUE AND DISSOLVE EVERY 8 HOURS NEEDED FOR NAUSEAAuthorizing Provider: LEATHA DEGROOT * Telephone Encounter - Mercedez Valente RN - 11/07/2023 9:29 AM ESTPending Prescriptions: Disp Refills Ondansetron 4 MG Oral Tablet Disintegratin*20 Tab*0 Sig: PLACE 1 TABLET ON TONGUE AND DISSOLVE EVERY 8 HOURS NEEDED FOR NAUSEA * Telephone Encounter - Mercedez Valente RN - 11/07/2023 9:25 AM EST Last prescribed by Leatha documented in this encounter Plan of Treatment Upcoming Encounters Date Type Department Care Team (Latest Contact Info) Description 11/10/2023 8:30 AM EST Telemedicine [employer] Machine Operator Obstetrics Maternal Medicine, [place] [address] [facility] [address] [place] [address] Rickie Kearns CRNP [address] [facility] [address] [place] [address] 11/10/2023 9:15 AM EST Office Visit Gynecology/Obstetr [facility] [address] [place] [address] Leatha Degroot PA-C [address] [place] [address] [place], Non Stress Tests [facility] [address] [place] [address] 11/13/2023 8:30 AM EST Office Visit Gynecology/Obstetr ics [facility] [address] [place] [address] Marcellus Lira MD [address] [place] [address] [place], Non Stress Tests [facility] [address] [place] [address] 11/14/2023 3:30 PM EST Telemedicine Nutrition, [facility] [address] [place] [address] Kassi Cole RDN [address] [place] [address] 11/17/2023 9:00 AM EST Office Visit Gynecology/Obstetr ics [facility] [address] [place] [address] Marcellus Lira MD [address] [place] [address] [place], Non Stress Tests [facility] [address] [place] [address] 11/20/2023 10:15 AM EST Office Visit Gynecology/Obstetr ics [facility] [address] [place] [address] Shantelle Richmond CRNP [address] [place] [address] [place], Non Stress Tests [facility] [address] [place] [address] 11/24/2023 3:30 PM EST Office Visit [employer] Machine Operator Obstetrics Maternal Medicine, [place] [address] [place] [address] [facility] [address] [place] [address] 11/24/2023 3:30 PM EST Imaging Radiology [facility], [place] [address] [place] [address] 11/27/2023 5:10 PM EST [facility] [address] [place] [address] [facility] [address] [place] [address] 11/28/2023 8:30 AM EST Office Visit Gynecology/Obstetr ics Sa[facility]ra [place] [address] [place] [address] Marcellus Lira MD [address] [place] [address] Jennifer [facility] Stress [facility] [address] [place] [address] 12/01/2023 9:00 AM EST Office Visit Gynecology/Obstetr ics [facility] [place] [address] [place] [address] Sharron Robertson CRNP [address] [place] [address] Raymon Non Stress Tests [facility] [address] [place] [address] 12/04/2023 11:00 AM EST Office Visit Gynecology/Obstetr ics [facility]an[facility]kerline [facility] [address] [place] [address] Shantelle Richmond CRNP [address] [place] [address] Jennifer [place] Stress [facility] [address] [place] [address] 12/07/2023 9:45 AM EST Office Visit Gynecology/Obstetr ics YoanMounakerline [facility] [address] [place] [address] Sharron Robertson CRNP [address] [place] [address] Jennifer [facility] Stress [facility] [address] [place] [address] 12/11/2023 9:00 AM EDT Office Visit Gynecology/Obstetr ics Yoanjeramie Nogueiras [address] [place] [address] Marcellus Lira MD [address] [place] [address] 12/18/2023 11:48 AM EDT Hospital Encounter [facility], Women's Lower Level 1st Floor [address] [place] [address] Keiry Loza, DO [address] [place] [address] 12/18/2023 11:48 AM EDT - 12/18/2023 2:00 PM EDT Surgery [facility], OB Triage, Women's Lower Level 1st Floor [address] [facility] [place], [place] [address] Keiry Loza, DO [address] [facility], [place] [address] DELIVERY AND CARE 12/21/2023 11:30 AM EDT Office Visit Gynecology/Obstetr ics Saundra [place] [address] [place] [address] Shantelle Richmond CRNP [address] [place] [address] 02/22/2024 10:45 AM EDT Office Visit Cardiology [facility] [address], [place] [id number] Summer Cartagena CRNP [address] [place] [address] Scheduled Procedures Name Priority Associated Diagnoses Date/Ti me DELIVERY AND CARE 39 weeks gestation of 12/18/2023 11:48 AM EDT Health Maintenance Due Date Last Done Comments Pneumococcal Vaccine: Pediatrics (0 to 5 Years) and At-Risk Patients (6 to 64 Years) (2 - PCV) 10/01/2020 10/01/2019, 02/11/2014 COVID-19 Vaccine (3 - 2022- season) 2023 03/12/2022, 02/10/2022 Depression Screening 11/17/2023 11/17/2022, 07/12/20 17 Pap Smear 08/09/2025 08/09/2022, 10/02, 10/15/2019, Additional history exists Cervical Cancer Screening 08/09/2027 HPV/Co-Test 08/09/2027 08/09/2022 DTaP,Tdap,and Td Vaccines (9 - Td or Tdap) 10/04/2033 10/04/2023, 06/11/2020, 09/05/2018, Additional history exists GARDASIL-HPV IMMUNIZATION SERIES Completed 07/14/2011, 07/14/2011, 03/15/2011, Additional history exists Hepatitis B Completed 01/30/2019, 11/02, 09/15/1997, Additional history exists Influenza Vaccine (FLU shot) Completed 05/2023, 06/30/2022, 08/30/2021, Additional history exists MENINGOCOCCAL (MENACTRA/MENVEO) Aged Out No longer eligible based on patient's age to complete this topic documented as of this encounter Medical Devices Implanted Type Area Neurology Hospitalist Device Identifier Shelf Expiration Date Model / Serial / Lot Ring Triad [id number] - [id number] Implanted:Qty: 1 on 08/09/2016 by Suha Harding MD at OR [facility] [place] N/A: Heart [employer] 08/31/2019 [id number] / [id number] / [id number] documented as of this encounter Advance Directives Latest Code Status on File Code Status Date Activated Date Inactivated Comments Full Code 08/20/2020 5:17 AM 08/24/2020 7:56 PM Thi s order reflects the patients wishes and were consensually agreed upon. Code Status History Code Status Date Activated Date Inactivated Comments Full Code 08/19/2020 7:57 AM 08/19/2020 2:49 PM Thi s order reflects the patients wishes and were consensually agreed upon. Full Code 10/28/2016 12:02 AM 10/30/2016 6:57 PM This order reflects the patients wishes and were consensually agreed upon. Question Answer Comments Discussion of Advance Directives occurred with: Patient Full Code 08/09/2016 11:43 AM 08/13/2016 4:37 PM Thi s order reflects the patients wishes and were consensually agreed upon. Full Code 07/29/2016 4:49 PM 08/09/2016 6:33 AM This order reflects the patients wishes and were consensually agreed upon.
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
--- OUTSIDE RECORDS SUMMARY | 2023-11-08 22:10 | External Medical Summary | Summary of Care ---
Author Name Unknown Organization [facility] Address [address] [place] [address] Phone [phone] Care Team Providers Care Wheat Inspector Name Role Phone Unavailable Primary Care Provider Unavailabl e Encounter Details Date Type Department Care Team (Late st Contact Info) Description 11/03/2023 Documentation Chief Program Officer Obstetrics Maternal Medicine, [place] [address] [place], [place] [id number] Keiry Loza, [address] [place] [address] Allergies Active Allergy Reactions Criticality Noted Date Comments Sulfamethoxazole-Trimetho prim Nausea/vomiting Medium 01/19/2018 Nausea when taken with keflex Doxycycline Nausea/vomiting Medium 09/10/2018 Cephalexin Nausea/vomiting Medium 01/19/2018 Nausea when taken with bactrim documented as of this encounter (statuses as of 11/03/2023) Medications Medication Sig Dispensed Refills Start Date [...] Additional Information Patient not taking.Reported on 11/03/2023 Tour Raiser Flex System w/Device Kit Use to test blood sugars 4 times daily (fasting, 1 hour after breakfast, lunch, and dinner) 1 Kit 0 10/11/2023 Active OneTouch Verio In Vitro Strip (Glucose Blood) Use to test blood sugars 4 times daily (fasting, 1 hour after breakfast, lunch, and dinner) 125 Strip 6 10/11/2023 Active Car Advisory NetworkTouch Delica Lancets 30G Use to test blood [...] as of this encounter (statuses as of 11/03/2023) Active Problems Problem Noted Date Diagnosed Date [...] 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 Advised patient to send us readings via the chat message --KW 10/31/23-elevated sugars; schedule for adapt 11/03/23: ADAPT visit complete; elevated FBS; ordered Lantus 10 units at bedtime Last Assessment & Plan: Patient encouraged to check BG 4x daily and report via [employer] neto to M ADAPT. Had issues with Current Health due [...] Reports bipolar. Denies SI/HI. Obtained counseling through [facility]. Last Assessment & Plan: No meds, no concerns reported today. 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 S/p valve repair and denies any further issues. Also reports history of IL. She had a negative heart catheterization at [...] in January 2023. She reports that her payroll and benefits analyst said she had PH, but that they [...] patients who previously received 17P. Patient's primary SKOOG MACHINE OPERATOR can coordinate therapy if desired. For patients with a history of delivery/prolonged PROM after 34 weeks, we do not recommend cervical length monitoring. Maternal asthma complicating Overview: Reports inhaler use as needed. Generally [...] any current needs or questions 10/20/2023 Mercedez Valente, JAMARI 10/20/2023 Problem Action Taken Date entered Entered by Date resolved Lack of housing Emergency usp resources given 11/02/2023 Mercedez Valente, JAMARI 11/02/2023 [...] breech then ERLTCS. Last in 2019 at [facility]. Desires repeat with tubal at [facility]. Last Assessment & Plan: Planning ERCD History of IL (myocardial infarction) 07/27/2018 Overview: Age 27, s/p [...] as of this encounter (statuses as of 11/03/2023) Resolved Problems Problem Noted Date Diagnosed Date [...] reassess growth. Current tobacco use 01/31/2020 01/13/20 22 Marijuana use 01/31/2020 05/18/2023 Obesity in , antepartum 01/31/2020 03/13/2021 Obesity, Class I, BMI 30.0-3 4.9 (see actual BMI) 01/31/2020 10/06/2020 Drug abuse in remission 01/15/202012/31 Supervision of high-risk pre gnancy, unspecified trimester 01/14/2020 10/06/2020 Overview: Problem Action Taken Date entered Entered by Date resolved H/o drug use- No use in 10 months. Using medical marijuana through [employer] [facility] 01/14/2020 Angy Chase RN 01/14/2020 nutrition Due date letter given for WIC 01/14/2020 Angy Chase RN 01/14/2020 Smoker Cessation encouraged 01/14/2020 Angy Chase RN 01/14/2020 Problem Action Taken Date entered Entered by Date resolved Current needs or questions Smoking approx 1/2 ppd Patient denies having any current needs or questions 02/12/2020 Agny Chase RN 02/12/2020 Problem Action Taken Date [...] Taken Date entered Entered by Date resolved [facility] breastpump form completed and faxed to [facility] for pt. 07/23/2020 Lisset Gonzalez RN 07/23/2020 [...] uncomplicated 01/16/2019 01/14/2020 Tobacco use disorder 01/16/2019 09/08/2 023 Last Assessment & Plan: Strongly advised [...] amphedamines, marijuana on tox screen 07/31/18 at [facility] Bipolar 1 disorder 07/12/2017 8 Attention [...] as of this encounter (statuses as of 11/03/2023) Immunizations Name Administration Dates Next Due COVID-19 [...] money to get more. Sometimes true 11/2022 [place] Depression Scale Answer Date Recorded [place] Depression Scale Total 9 11/02/2023 The thought [...] as of this encounter Progress Notes * Keiry Loza, DO - 11/03/2023 4:26 PM EST MFM - Maternal - Multidisciplinary Conference Name: Nancy Hernandez : 1990 Demographics: [place] Castaneda Primary OB provider: Nohemi MCARTHUR Current GA: 32w5d ANYA: Estimated Date of Delivery: 12/24/23 [facility] [place] [facility] [place]: Virtual - [place] [facility] Indication: complex maternal cardiopulmonary history [facility] Attendees: Keiry Loza DO (MFM fellow), Caro Barrientos DO (sweatband perforator), Dr. Harrington (Cardiology), Dr. Selby (Cardiothoracic surgery), Dr. Rey (Pulmonology), Dr. Estrada (OB Anesthesia) Maternal history: Nancy Hernandez is a 33 year old at 32w5d presenting with a history of: History of infective endocarditis and septic emboli in 2016 s/p tricuspid valve repair (26mm Triad ring) and PFO closure Pulmonary HTN on echocardiogram, last echo PAP 28 mmHg (previously ~40mmHg) Hx PE in setting of OCP use at age 20 years Hx IL in setting of drug use/withdrawal, normal heart cath Hx CD x2, plans ERCD Subutex Asthma GDMA2, starting lantus 10u QHS today Recent Cardiology visit (09/13/23): (+) NYHA functional class 2 (dyspnea on extreme exertion). Euvolemic on exam, lungs are clear, she has no edema or JVD Echo (10/18/23): LVEF 60-64%, LV and RV fxn normal, moderate tricuspid regurg, PAP 28 mmHg Recent Pulmonology visit (10/27/23): Respiratory status seems to have improved, and she is doing relatively well with her . Pulmonary function testing showed some diminishing from past testing, but this was done during third trimester . Recent [facility] Ultrasound: [facility] US (10/27/23): EFW 1959g (60%), AC 69%, DAVON 13.6cm, breech, anterior/fundal placenta Reports SOB/BLAKE is stable and has not worsened. Genetic screening: cell free DNA genetic screening, low risk result Assessment: Nancy Hernandez is a 33 year old at 32w5d with above complex cardiopulmonary history. Recommendations: Next MF scan date with indication: 11/24/23, growth Antepartum surveillance: NST twice weekly due to GDMA2 Delivery: 39w1d ERCD at [facility] Other recommendations: - Last dose of anticoagulation the night prior to surgery. - Recommend coagulation studies be ordered on admission - Restart prophylactic anticoagulation 12-24 hours after and continue at least 6 weeks . - Anesthesia plans epidural with slow titration to avoid derangements in BP. Also plan arterial line in OR during , but plan to remove after procedure is completed unless otherwise indicated. - No telemetry monitoring indicated. - Patient to recover on L&D. - In the period, patient should be monitored for signs/symptoms of right heart failure (though low risk due to normal function on echo). - Would not be recommend early discharge. Keiry Loza DO 11/03/2023 4:47 PM Spoke with patient regarding recommendations. She understands and all questions were answered. documented in this encounter Plan of Treatment Upcoming Encounters Date Type Department Care Team (Latest Contact Info) Description 11/06/2023 5:10 PM EST Anticoagulation Pharmacy, [address] [address] [facility] [place] [address] 11/07/2023 11:15 AM EST Office Visit Gynecology/Obstetr [facility] Saundra Ennis [address] [facility] [place] [address] Sharron Robertson CRNP [address] [place] [address] Jennifer Ennis Stress Tests [facility] [address] [place] [address] 11/10/2023 8:30 AM EST Telemedicine Chief Program Officer Obstetrics Maternal Medicine, [place] [address] [facility] [address] [place] [address] Rickie Kearns CRNP [address] [facility] [address] [place] [address] 11/10/2023 9:15 AM EST Office Visit Gynecology/Obstetr [facility] Saundra Ennis [address] [place] [address] Lesa Degroot PA-C [address] [place] [address] [place], Non Stress Tests J[facility] [address] [place] [address] 11/13/2023 8:30 AM EST Office Visit Gynecology/Obstetr ics [facility] [address] [place] [address] Marcellus Lira MD [address] [place] [address] En[place], Non Stress Tests Jalen [address] [place] [address] 11/14/2023 3:30 PM EST Telemedicine Nutrition, [place] [address] [place] [address] Kassi Cole RDN [address] [place] [address] 11/17/2023 9:00 AM EST Office Visit Gynecology/Obstetr [facility] [address] [place] [address] Marcellus Lira MD [address] [place] [address] En[place], Non Stress Tests Jalen [address] [place] [address] 11/20/2023 10:15 AM EST Office Visit Gynecology/Obstetr ics [facility] [address] [place] [address] Shantelle Richmond CRNP [address] [place] [address] Raymon Non Stress Tests J[facility] [address] [place] [address] 11/24/2023 3:30 PM EST Office Visit Chief Program Officer Obstetrics Maternal Medicine, [place] [address] [place] [address] Cristino Garcia, [address] [place] [address] 11/24/2023 3:30 PM EST Imaging Radiology [facility], [place] [address] [place] [address] 11/28/2023 8:30 AM EST Office Visit Gynecology/Obstetr ics [facility] [address] [place] [address] Marcellus Lira MD [address] [place] [address] Raymon Non Stress Tests Jalen [address] [place] [address] 12/01/2023 9:00 AM EST Office Visit Gynecology/Obstetr ics [facility] [address] [place] [address] Sharron Robertson CRNP [address] [place] [address] Raymon Non Stress Tests J[facility] [address] [place] [address] 12/04/2023 11:00 AM EST Office Visit Gynecology/Obstetr ics [facility] [address] [place] [address] Shantelle Richmond CRNP [address] [place] [address] En[place], Non Stress Tests Jalen [address] [place] [address] 12/07/2023 9:45 AM EST Office Visit Gynecology/Obstetr ics [facility] [address] [place] [address] Sharron Robertson CRNP [address] [place] [address] Raymon Non Stress Tests Jalen [address] [place] [address] 12/11/2023 9:00 AM EDT Office Visit Gynecology/Obstetr ics [facility] [address] [place], [place] [address] Marcellus Lira MD [address] [place] [address] 12/18/2023 10:55 AM EDT Hospital Encounter W[facility], Women's Lower Level 1st Floor [address] [place] [facility] [address] Keiry Loza, DO [address] [place] [facility] [address] 12/18/2023 10:55 AM EDT - 12/18/2023 1:07 PM EDT Surgery OBTR C, OB Triage, Women's Lower Level 1st Floor [address] [facility] [place], [place] [address] Keiry Loza, DO [address] [facility] [place] [address] DELIVERY AND CARE 12/21/2023 11:30 AM EDT Office Visit Gynecology/Obstetr [facility]ogueir[facility] [address] [place] [address] Shantelle Richmond CRNP [address] [place] [address] 02/22/2024 10:45 AM EDT Office Visit Cardiology [facility], [place] [address] [place] [address] Summer Cartagena CRNP [address] [place] [address] Scheduled Procedures Name Priority Associated [...] this encounter Medical Devices Implanted Type Area Mds Nurse Device Identifier Shelf Expiration Date Model / Serial / Lot Ring Triad [id number] - [id number] Implanted:Qty: 1 on 08/09/2016 by Suha Harding MD at [place] [facility] N/A: Heart [employer] 08/31/2019 [id number] / [id number] / [id number] documented as of this encounter Advance Directives [...]
--- OUTSIDE RECORDS SUMMARY | 2023-11-08 22:10 | External Medical Summary | Summary of Care ---
Author Name Unknown Organization [facility] Address [address] [place] [address] Phone [phone] Care Team Providers Care Job Press Feeder Name Role Phone Unavailable Primary Care Provider Unavailabl e Reason for Visit * Reason Comments Dosage Adjustment Via Phone (anticoag Cl inic) Encounter Details Date Type Department Care Team (Latest Contact Info) Description 11/06/2023 5:10 PM EST Anticoagulation Pharmacy, [place] [address] [place] [address] [facility] [address] [place] [address] History of pulmonary embolism* Allergies Active Allergy Reactions Criticality Noted Date Comments Sulfamethoxazole-Trimetho prim Nausea/vomiting Medium 01/19/2018 Nausea when taken with keflex Doxycycline Nausea/vomiting Medium 09/10/2018 Cephalexin Nausea/vomiting Medium 01/19/2018 Nausea when taken with bactrim documented as of this encounter (statuses as of 11/06/2023) Medications Medication Sig Dispensed Refills Start Date [...] Additional Information Patient not taking.Reported on 11/03/2023 [employer] Flex System w/Device Kit Use to test blood sugars 4 times daily (fasting, 1 hour after breakfast, lunch, and dinner) 1 Kit 0 10/11/2023 Active TraNet'teTouch Verio In Vitro Strip (Glucose Blood) Use to test blood sugars 4 times daily (fasting, 1 hour after breakfast, lunch, and dinner) 125 Strip 6 10/11/2023 Active OneTouch Delica Lancets 30G Use to [...] 2.5 mgIndications:BLAKE (dyspnea on exertion),PHT (pulmonary hypertension) ([facility]),Mild persistent asthma with exacerbation 2.5 mg NEBULIZER Q4H PRN 09/01/2023 Active documented as of this encounter (statuses as of 11/06/2023) Active Problems Problem Noted Date Diagnosed Date Mild persistent asthma with exacerbation 01/26/2 024 30 weeks gestation of 10/19/2023 Insulin [...] 233 10/19/2023 111 148 118 x 10/19/23: [facility] ADAPT consult complete. Enrolled in Current Health. 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 Advised patient to send us readings via the chat message --KW 10/31/23-elevated sugars; schedule for adapt 11/03/23: ADAPT visit complete; elevated FBS; ordered Lantus 10 units at bedtime Last Assessment & Plan: Patient encouraged to check BG 4x daily and report via [employer] neto to [facility] ADAPT. Had issues with Current Health due [...] Reports bipolar. Denies SI/HI. Obtained counseling through [facility]. Last Assessment & Plan: No meds, no [...] in January 2023. She reports that her azure developer said she had PH, but that they [...] patients who previously received 17P. Patient's primary DIRECTOR INBOUND SALES can coordinate therapy if desired. For patients [...] by Date resolved Lack of housing Emergency senior living resources given 11/02/2023 Mercedez Valente RN 11/02/2023 [...] breech then ERLTCS. Last [place] 2019 at [facility] Desires repeat with tubal at [facility]. Last Assessment & Plan: Planning ERCD History [...] as of this encounter (statuses as of 11/06/2023) Resolved Problems Problem Noted Date Diagnosed Date [...] in 10 months. Using medical marijuana through [employer] [facility] 01/14/2020 Angy Chase RN 01/14/2020 nutrition [...] Taken Date entered Entered by Date resolved [facility] breastpump form completed and faxed to [facility] for pt. 07/23/2020 Lisset Gonzalez RN [...] 10/06/2020 Overview: Delivered at 35w0d Previously on [place] Stopped at 36w Opioid dependence, uncomplicated 01/16/2019 [...] on tox screen 07/31/[address] [facility] ED Bipolar 1 disorder 07/12/2017 8 [...] as of this encounter (statuses as of 11/06/2023) Immunizations Name Administration Dates Next Due COVID-19 [...] money to get more. Sometimes true 11/2022 [place] Depression Scale Answer Date Recorded [place] Depression Scale Total 9 11/02/2023 The thought [...] as of this encounter Progress Notes * Evelia Goel, [facility] - 11/06/2023 8:45 AM EST Patient at 33 weeks, plan to transition at 36 weeks. Follow up aft 36 weeks for transition, patient is scheduled for C section at 39 weeks1 day. Evelia Goel, Pharm D, [facility] Clinical Pharmacist 11/06/2023, 8:47 AM documented in this encounter Plan of Treatment Upcoming Encounters Date Type Department Care Team (Latest Contact Info) Description 11/07/2023 11:15 AM EST Office Visit Gynecology/Obstetr ics [facility] [address] [place] [address] Sharron Robertson CRNP [address] [place] [address] Raymon, Non Stress Tests Jalen [address] [place] [address] 11/10/2023 8:30 AM EST Telemedicine Welt Trimming Machine Operator Obstetrics Maternal Medicine, [place] [address] [facility] [address] [place] [address] Rickie Kearns CRNP [address] [facility] [address] [place] [address] 11/10/2023 9:15 AM EST Office Visit Gynecology/Obstetr ics [facility] [address] [place] [address] Lesa Degroot PA-C [address] [place] [address] Raymon, Non Stress Tests Jalen [address] [place] [address] 11/13/2023 8:30 AM EST Office Visit Gynecology/Obstetr ics [facility] [address] [place] [address] Marcellus Lira MD [address] [place] [address] Raymon, Non Stress Tests Jalen [address] [place] [address] 11/14/2023 3:30 PM EST Telemedicine Nutrition, [place] [address] [place] [address] Kassi Cole RDN [address] [place], [place] [address] 11/17/2023 9:00 AM EST Office Visit Gynecology/Obstetr ics [facility]ogueir[facility] [address] [place] [address] Marcellus Lira MD [address] [place] [address] Jennifer Ennis Stress Tests Jalen [address] [place] [address] 11/20/2023 10:15 AM EST Office Visit Gynecology/Obstetr ics [facility]ogueiras [address] [place] [address] Shantelle Richmond CRNP [address] [place] [address] Jennifer Ennis Stress Tests Jalen [address] [place] [address] 11/24/2023 3:30 PM EST Office Visit Welt Trimming Machine Operator Obstetrics Maternal Medicine, [place] [address] [place] [facility] [place] [place] [address] Cristino Garcia, [address] [facility], [place] [address] 11/24/2023 3:30 PM EST [facility] [place] [address] [place] [address] 11/27/2023 5:10 PM EST [address] [address] [facility] [address] [facility], [place] [address] 11/28/2023 8:30 AM EST Office Visit Gynecology/Obstetr ics [facility] [address] [place] [address] Marcellus Lira MD [address] [place] [address] Raymon Non Stress Tests Jalen [address] [place] [address] 12/01/2023 9:00 AM EST Office Visit Gynecology/Obstetr ics [facility] [address] [place] [address] Sharron Robertson CRNP [address] [place] [address] Raymon Non Stress Tests Jalen [address] [place] [address] 12/04/2023 11:00 AM EST Office Visit Gynecology/Obstetr ics [facility] [address] [place] [address] Shantelle Richmond CRNP [address] [place] [address] Raymon Non Stress Tests Jalen [address] [place] [address] 12/07/2023 9:45 AM EST Office Visit Gynecology/Obstetr ics [facility] [address] [place] [address] Sharron Robertson CRNP [address] [place] [address] Jennifer Ennis Stress Tests Jalen [address] [place], [place] [address] 12/11/2023 9:00 AM EDT Office Visit Gynecology/Obstetr banner Saundra Ennis [address] [place], [place] [address] Marcellus Lira MD [address] [place] [address] 12/18/2023 10:55 AM EDT Hospital Encounter W[facility]1 [facility], Women's Lower Level 1st Floor [address] [place], [place] [id number] Keiry Loza DO [address] [place] [address] 12/18/2023 10:55 AM EDT - 12/18/2023 1:07 PM EDT Surgery OBTR [facility], OB Triage, Women's Lower Level 1st Floor [address] [place] [address] Keiry Loza DO [address] [place] [address] DELIVERY AND CARE 12/21/2023 11:30 AM EDT Office Visit Gynecology/Obstetr banner Saundra Nogueiras [address] [facility] [place] [address] Shantelle Richmond CRNP [address] [facility] [address] 02/22/2024 10:45 AM EDT Office Visit Cardiology [facility] [address] [place], [place] [id number] Summer Cartagena CRNP [address] [place] [address] Scheduled Procedures Name Priority Associated [...] this encounter Medical Devices Implanted Type Area Federal Java Developer Device Identifier Shelf Expiration Date Model / Serial / Lot Ring Triad [id number] - [id number] Implanted:Qty: 1 on 08/09/2016 by Suha Harding MD at OR [facility] N/A: Heart [employer] 08/31/2019 [id number] / [id number] / [id number] documented as of this encounter Visit Diagnoses Diagnosis History of pulmonary embolism- Primary Personal history of pulmonary embolism 39 weeks gestation of state, incidental documented [...]
--- OUTSIDE RECORDS SUMMARY | 2023-11-08 22:10 | External Medical Summary | Summary of Care ---
Author Name Unknown Organization [facility] Address [address] [place] [address] Phone [phone] Care Team Providers Care Web Content & Social Media Manager Name Role Phone Unavailable Primary Care Provider Unavailabl e Reason for Visit * Reason Onset Date Comments Medical Nutrition Therapy 11/06/2023 Encounter Details Date Type Department Care Team (Late st Contact Info) Description 11/06/2023 2:00 PM EST Scheduled Telephone Jalen Calhoun [address] [place] [address] Kassi Cole RDN [address] [facility] [place] [address] Allergies Active Allergy Reactions Criticality Noted Date [...] Additional Information Patient not taking.Reported on 11/03/2023 Snabboteket Flex System w/Device Kit Use to test blood sugars 4 times daily (fasting, 1 hour after breakfast, lunch, and dinner) 1 Kit 0 10/11/2023 Active UtiliDataToHipbone Verio In Vitro Strip (Glucose Blood) Use to test blood sugars 4 times daily (fasting, 1 hour after breakfast, lunch, and dinner) 125 Strip 6 10/11/2023 Active UtiliDataTouch Delica Lancets 30G Use to test blood [...] 2.5 mgIndications:BLAKE (dyspnea on exertion),PHT (pulmonary hypertension) ([facility]),Mild persistent asthma with exacerbation 2.5 mg NEBULIZER [...] 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 Advised patient to send us readings via the chat message --KW 10/31/23-elevated sugars; schedule for adapt 11/03/23: ADAPT visit complete; elevated FBS; ordered Lantus 10 units at bedtime Last Assessment & Plan: Patient encouraged to check BG 4x daily and report via [employer] neto to M ADAPT. Had issues with [...] Reports bipolar. Denies SI/HI. Obtained counseling through [facility]. Last Assessment & Plan: No meds, no concerns reported today. 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 S/p valve repair and denies any further issues. Also reports history of [place]. She had a negative heart catheterization at [...] in January 2023. She reports that her hybrid technologist said she had PH, but that they [...] patients who previously received 17P. Patient's primary GRAIN SAMPLER can coordinate therapy if desired. For patients [...] current needs or questions 10/20/2023 Mercedez Valente, RN 10/20/2023 Problem Action Taken Date entered Entered by Date resolved Lack of housing Emergency mcc resources given 11/02/2023 Mercedez Valente RN 11/02/2023 [...] breech then ERLTCS. Last in [place] at [facility]. Desires repeat with tubal at [facility]. Last Assessment & Plan: Planning ERCD History of [place] (myocardial infarction) 07/27/2018 Overview: Age 27, s/p [...] in 10 months. Using medical marijuana through [facility] 01/14/2020 Angy Chase RN 01/14/2020 nutrition [...] Taken Date entered Entered by Date resolved [facility] breastpump form completed and faxed to [facility] for pt. 07/23/2020 Lisset Gonzalez RN 07/23/2020 [...] amphedamines, marijuana on tox screen 07/31/18 at [facility] ED Bipolar 1 disorder 07/12/2017 8 [...] money to get more. Sometimes true 11/2022 Uriah Depression Scale Answer Date Recorded Uriah Depression Scale Total 9 11/02/2023 The thought [...] encounter Miscellaneous Notes * Telephone Encounter - Kassi Cole, GERALD - 11/06/2023 1:51 PM EST Attempted to contact pt to follow-up after initial GDM video visit from October 19. Left message on pt's voice mail and encouraged her to contact me if any questions or concerns arise. Also reminded her of upcoming appointment on November 14. Kassi Cole RDN, Clinical Dietitian II, [facility] Clinical Nutrition Services [facility] [address] [place] [address] Available via DealTraction Portal documented in this encounter Plan of Treatment Upcoming Encounters Date Type Department Care Team (Latest Contact Info) Description 11/06/2023 5:10 PM EST Anticoagulation Pharmacy, [place] [address] [facility] [place] [address] [facility] [address] [facility], [place] [address] History of pulmonary embolism* 11/07/2023 11:15 AM EST Office Visit Gynecology/Obstetr [facility] Saundra Ennis [address] [place] [address] Sharron Robertson CRNP [address] [place] [address] Raymon Non Stress Tests Jalen [address] [place] [address] 11/10/2023 8:30 AM EST Telemedicine Bleach Plant Operator Obstetrics Maternal Medicine, [place] [address] [facility] [address] [place] [address] Rickie Kearns CRNP [address] [facility] [address] [place] [address] 11/10/2023 9:15 AM EST Office Visit Gynecology/Obstetr ics [facility] [address] [place] [address] Leas Degroot PA-C [address] [place] [address] Raymon Non Stress Tests Jalen [address] [place] [address] 11/13/2023 8:30 AM EST Office Visit Gynecology/Obstetr [facility] [address] [place] [address] Marcellus Lira MD [address] [place] [address] Raymon, Non Stress Tests Jalen [address] [place] [address] 11/14/2023 3:30 PM EST Telemedicine Nutrition, J[place] Noguerias [address] [place] [address] Kassi Cole, GERALD [address] [place] [address] 11/17/2023 9:00 AM EST Office Visit Gynecology/Obstetr [facility] [place] [address] [place] [address] Marcellus Lira MD [address] [place] [address] Raymon, Non Stress Tests Jalen [address] [place] [address] 11/20/2023 10:15 AM EST Office Visit Gynecology/Obstetr [facility] [place] [address] [place] [address] Shantelle Richmond CRNP [address] [place] [address] [place], Non Stress Tests Jalen [address] [place] [address] 11/24/2023 3:30 PM EST Office Visit Bleach Plant Operator Obstetrics Maternal Medicine, [place] [address] [place] [address] Cristino Garcia, DO [address] [place] [address] 11/24/2023 3:30 PM EST [facility] [place] [address] [place] [address] 11/27/2023 5:10 PM EST Anticoagulation Pharmacy, [place] [address] [place] [address] [facility] [address] [place] [address] 11/28/2023 8:30 AM EST Office Visit Gynecology/Obstetr ics [facility] [place] [address] [place] [address] Marcellus Lira MD [address] [place] [address] Raymon, Non Stress Tests Jalen [address] [place] [address] 12/01/2023 9:00 AM EST Office Visit Gynecology/Obstetr ics [facility] [place] [address] [place] [address] Sharron Robertson CRNP [address] [place] [address] [place], Non Stress Tests Jalen [address] [place] [address] 12/04/2023 11:00 AM EST Office Visit Gynecology/Obstetr ics [facility] [place] [address] [place] [address] Shantelle Richmond CRNP [address] [place] [address] Raymon, Non Stress Tests Jalen [address] [place] [address] 12/07/2023 9:45 AM EST Office Visit Gynecology/Obstetr ics [facility] [place] [address] [place] [address] Sharron Robertson CRNP [address] [place] [address] Raymon Non Stress Tests Jalen [address] [place] [address] 12/11/2023 9:00 AM EDT Office Visit Gynecology/Obstetr [facility] Saundra Nogueiras [address] [place] [address] Marcellus Lira MD [address] [place] [address] 12/18/2023 10:55 AM EDT Hospital Encounter [facility], Women's Lower Level 1st Floor [address] [place] [facility] [place] [address] Keiry Loza, DO [address] [place] [facility] [place] [address] 12/18/2023 10:55 AM EDT - 12/18/2023 1:07 PM EDT Surgery [facility], OB Triage, Women's Lower Level 1st Floor [address] [facility], [place] [address] Keiry Loza, DO [address] [facility], [place] [address] DELIVERY AND CARE 12/21/2023 11:30 AM EDT Office Visit Gynecology/Obstetr [facility] Saundra Nogueiras [address] [place] [address] Shantelle Richmond CRNP [address] [place] [address] 02/22/2024 10:45 AM EDT Office Visit Cardiology [facility], [place] [address] [place] [address] Summer Cartagena CRNP [address] [place] [address] Scheduled Procedures Name Priority Associated [...] this encounter Medical Devices Implanted Type Area Art Instructor Device Identifier Shelf Expiration Date Model / Serial / Lot Ring Triad [id number] - [id number] Implanted:Qty: 1 on 08/09/2016 by Suha Harding MD at [place] [facility] N/A: Heart [employer] 08/31/2019 [id number] / [id number] / [id number] documented as of this encounter Advance Directives [...]
--- OUTSIDE RECORDS SUMMARY | 2023-11-08 22:11 | External Medical Summary | Summary of Care ---
Author Name Unknown Organization [facility] Address [address] [place] [address] Phone [phone] Care Team Providers Care Java Software Architect Name Role Phone Unavailable Primary Care Provider Unavailabl e Reason for Visit * Reason Onset Date Comments Diabetes Follow-Up 11/03/2023 Encounter Details Date Type Department Care Team ([facility] st Contact Info) Description 11/03/2023 Telephone Life Insurance Specialist Obstetrics Maternal Medicine, [place] [address] [facility] [address] [place] [address] Karlee Sesay CRNP [address] [place] [address] Diabetes Follow-Up Allergies Active Allergy Reactions Criticality Noted Date [...] Additional Information Patient not taking.Reported on 11/03/2023 Kidamom Flex System w/Device Kit Use to test blood sugars 4 times daily (fasting, 1 hour after breakfast, lunch, and dinner) 1 Kit 0 10/11/2023 Active connex.ioTouch Verio In Vitro Strip (Glucose Blood) Use to test blood sugars 4 times daily (fasting, 1 hour after breakfast, lunch, and dinner) 125 Strip 6 10/11/2023 Active connex.ioTouch Delica Lancets 30G Use to test blood [...] mgIndications:BLAKE (dyspnea on exertion),PHT (pulmonary hypertension) ([facility]),Mild persistent asthma with exacerbation 2.5 mg NEBULIZER [...] 233 10/19/2023 111 148 118 x 10/19/23: [facility] ADAPT consult complete. Enrolled in Current Health. 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 Advised patient to send us readings via the chat message --KW 10/31/23-elevated sugars; schedule for adapt 11/03/23: ADAPT visit complete; elevated FBS; ordered Lantus 10 units at bedtime Last Assessment & Plan: Patient encouraged to check BG 4x daily and report via [employer] neto to M ADAPT. Had issues with [...] Reports bipolar. Denies SI/HI. Obtained counseling through [facility]. Last Assessment & Plan: No meds, no concerns reported today. 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 S/p valve repair and denies any further issues. Also reports history of [place]. She had a negative heart catheterization at [...] in January 2023. She reports that her education dean said she had PH, but that they [...] patients who previously received 17P. Patient's primary FORK LIFT TECHNICIAN can coordinate therapy if desired. For patients [...] Assessment & Plan: Planning ERCD History of [place] (myocardial infarction) 07/27/2018 Overview: Age 27, s/p [...] in 10 months. Using medical marijuana through [employer] [facility] 01/14/2020 Angy Chase RN 01/14/2020 [...] Taken Date entered Entered by Date resolved [facility] breastpump form completed and faxed to [facility] for pt. 07/23/2020 Lisset Gonzalez RN [...] amphedamines, marijuana on tox screen 07/31/18 at [facility] ED Bipolar 1 disorder 07/12/2017 [...] money to get more. Sometimes true 11/2022 [place] Depression Scale Answer Date Recorded [place] Depression Scale Total 9 11/02/2023 The thought [...] encounter Miscellaneous Notes * Telephone Encounter - Enedina Casey LPN - 11/03/2023 12:50 PM EST Shantelle Richmond reviewed with pt yesterday and had her scheduled twice weekly NST's at checkout. Ptread message from [facility] reviewing information. * Telephone Encounter - Sharron Robertson CRNP - 11/03/2023 12:46 PM EST Please see original message. Make sure pt is scheduled for twice weekly NST and make sure she is aware of these recommendations from [facility]. 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 Ordered: Lantus 10 units at bedtime MFM recommends and patient is aware: -Recommend twice weekly surveillance starting or once weekly BPP starting at 32 weeks (OB to coordinate) -Recommend every 4 week growth ultrasounds with [facility] (next on 11/24/2023) -Recommend delivery during the 39th week and by EDC (or sooner if another indication) NICKOLAS Spicer 11/03/2023 9:44 AM documented in this encounter Plan of Treatment Upcoming Encounters Date Type Department Care Team (Late st Contact Info) Description 11/06/2023 5:10 PM EST Anticoagulation Pharmacy, [place] [address] [place] [address] [facility] [address] [place] [address] 11/07/2023 11:15 AM EST Office Visit Gynecology/Obstetrics Saundra Ennis [address] [place] [address] Sharron Robertson CRNP [address] [place] [address] Jennifer Ennis Stress Tests Jalen [address] [place] [address] 11/10/2023 8:30 AM EST Telemedicine Life Insurance Specialist Obstetrics Maternal Medicine, [place] [address] [facility] [address] [place] [address] Rickie Kearns CRNP [address] [facility] [address] [place] [address] 11/10/2023 9:15 AM EST Office Visit Gynecology/Obstetrics Sa[place] [address] [place] [address] Lesa Degroot PA-C [address] [place] [address] Jennifer Ennis Stress Tests Jalen [address] [place] [address] 11/13/2023 8:30 AM EST Office Visit Gynecology/Obstetrics [place] [address] [place] [address] Marcellus Lira MD [address] [place] [address] Jennifer Ennis Stress Tests Jalen [address] [place] [address] 11/14/2023 3:30 PM EST Telemedicine Nutrition, Jalen Ennis [address] [place] [address] Kassi Cole RDN [address] [place] [address] 11/17/2023 9:00 AM EST Office Visit Gynecology/Obstetrics [facility] [place] [address] [place] [address] Marcellus Lira MD [address] [place] [address] En[place], Non Stress Tests Jalen [address] [place] [address] 11/20/2023 10:15 AM EST Office Visit Gynecology/Obstetrics [facility] [place] [address] [place] [address] Shantelle Richmond CRNP [address] [place] [address] Ennis, Non Stress Tests Jalen [address] [place] [address] 11/24/2023 3:30 PM EST Office Visit Life Insurance Specialist Obstetrics Maternal Medicine, [place] [address] [place] [address] Cristino Garcia, [address] [place] [address] 11/24/2023 3:30 PM EST Imaging Radiology [facility] [place] [address] [place] [address] 11/28/2023 8:30 AM EST Office Visit Gynecology/Obstetrics Saundra Ennis [address] [place] [address] Marcellus Lira MD [address] [place] [address] En[place], Non Stress Tests Jalen [address] [place] [address] 12/01/2023 9:00 AM EST Office Visit Gynecology/Obstetrics [facility] [place] [address] [place] [address] Sharron Robertson CRNP [address] [place] [address] Ennis, Non Stress Tests Jalen [address] [place] [address] 12/04/2023 11:00 AM EST Office Visit Gynecology/Obstetrics Saundra [place] [address] [place] [address] Shantelle Richmond CRNP [address] [place] [address] Ennis Non Stress Tests Jalen [address] [place] [address] 12/07/2023 9:45 AM EST Office Visit Gynecology/Obstetrics Saundra [facility] [address] [place] [address] Sharron Robertson CRNP [address] [place] [address] Raymon Non Stress Tests Jalen [address] [place] [address] 12/11/2023 9:00 AM EDT Office Visit Gynecology/Obstetrics Saundra [facility] [address] [place] [address] Marcellus Lira MD [address] [place] [address] 12/21/2023 11:30 AM EDT Office Visit Gynecology/Obstetrics Saundra [facility] [address] [place] [address] Shantelle Richmond CRNP [address] [place] [address] 02/22/2024 10:45 AM EDT Office Visit Cardiology [facility] [address] [place] [facility] [place] [address] Summer Cartagena CRNP [address] [place] [facility] [place] [id number] Health Maintenance Due Date Last Done Comments [...] this encounter Medical Devices Implanted Type Area Lead Installer Device Identifier Shelf Expiration Date Model / Serial / Lot Ring Triad [id number] - [id number] Implanted:Qty: 1 on 08/09/2016 by Suha Harding MD [place] [facility] N/A: Heart [employer] 08/31/2019 [id number] / [id number] / [id number] documented as of this encounter Advance Directives [...]
--- OUTSIDE RECORDS SUMMARY | 2023-11-08 22:11 | External Medical Summary | Summary of Care ---
Author Name Unknown Organization [facility] Address [address] [place] [address] Phone [phone] Care Team Providers Care It Systems Administrator Name Role Phone Unavailable Primary Care Provider Unavailabl e Reason for Visit * Reason Onset Date Comments No Show 08/02/2023 Encounter Details Date Type Department Care Team (Late st Contact Info) Description 08/02/2023 Telephone Cardiology [facility] [address] [place], [place] [id number] Aram Berry, DNP [address] [place] [address] No Show Allergies Active Allergy Reactions Criticality Noted Date Comments Sulfamethoxazole-Trimetho prim Nausea/vomiting Medium 01/19/2018 Nausea when taken with keflex Doxycycline Nausea/vomiting Medium 09/10/2018 Cephalexin Nausea/vomiting Medium 01/19/2018 Nausea when taken with bactrim documented as of this encounter (statuses as of 11/01/2023) Medications Medication Sig Dispensed Refills Start Date End Date Status albuterol sulfate (PROVENTIL) (2.5 MG/3ML) 0.083% nebulizer solutionIndications:B ronchitis, complicated Inhale 1 Vial via nebulizer every 4 hours as needed for Wheezing. 120 Vial 11 06/13/2018 Active Nebulizers (NEBULIZER COMPRESSOR) MISCIndications:Bronc hitis, complicated Inhale via nebulizer. Use as directed. 1 Each 1 06/13/2018 Active albuterol HFA (VENTOLIN HFA) 108 (90 BASE) MCG/ACT inhalerIndications: [place] persistent asthma with acute exacerbation Inhale 2 Puffs by mouth every 4 hours as needed for Shortness of Breath. 1 Inhaler 1 01/16/2019 Active Fluticasone Propionate 50 MCG/ACT Nasal Suspension (Flonase)Indications: Other non-recurrent acute nonsuppurative otitis media of left ear,Post-nasal drip SPRAY 2 SPRAYS INTO EACH NOSTRIL EVERY DAY 48 mL 3 10/07/2022 Active Additional Information Patient taking differently: 2 [place] Nasal DAILY PRN, Reported on 11/04/2022 Buprenorphine HCl 2 MG Sublingual Tablet Sublingual (Subutex) Place 1 Tablet under the tongue in the morning. 0 Active Complete Oral Capsule Therapy Pack Take by mouth. 0 Active Vitamin B-6 25 MG Oral Tablet Take by mouth. 0 Active Enoxaparin Sodium 40 MG/0.4ML Injection Solution Prefilled Syringe (Lovenox)Indications: History of pulmonary embolism,H/O tricuspid valve repair Inject 40 mg under the skin in the morning. Transition to heparin at 36 weeks gestation. 12 mL 5 06/19/2023 Active Hospital, Clinic, or Other Facility Administered Medication Ordered Dose Route Frequency Start Date End Date Status Albuterol Sulfate (Proventil) (5 MG/ML) 0.5% *conc* inhalation solution 2.5 mgIndications:Dyspnea and respiratory abnormalities 2.5 mg NEBULIZER PRN 01/17/2023 01/17/2024 Active Albuterol Sulfate (Proventil) (2.5 MG/3ML) 0.083% inhalation solution 2.5 mgIndications:Dyspnea and respiratory abnormalities 2.5 mg NEBULIZER PRN 01/17/2023 01/17/2024 Active documented as of this encounter (statuses as of 11/01/2023) Active Problems Problem Noted Date Diagnosed Date Mild persistent asthma with exacerbation 024 30 weeks gestation of 10/19/2023 Diet controlled gestational diabetes mellitus (GDM) in third trimester 10/18/2023 [...] 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 Advised patient to send us readings via the chat message --KW 10/31/23-elevated sugars; schedule for adapt Last Assessment & Plan: Patient encouraged to check BG 4x daily and report via [employer] neto to MFM ADAPT. Had issues with Current Health due to work schedule. Blood pressure elevated without history of HTN 1 11/07/2022 Food insecurity 08/14/2023 Overview: Per [facility] Protocol Supervision of high risk in third trim guzman 08/08/2023 Last Assessment & Plan: growth and fluid appropriate for gestational age. All visualized anatomy appears normal. BLAKE (dyspnea on exertion) 06/26/2023 Bipolar disease during 06/09/2023 Overview: Reports bipolar. Denies SI/HI. Obtained counseling through [facility]. Last Assessment & Plan: No meds, no concerns reported today. 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 S/p valve repair and denies any further issues. Also reports history of TN. She had a negative heart catheterization at [...] in January 2023. She reports that her final application reviewer said she had PH, but that they [...] patients who previously received 17P. Patient's primary AIRWAYS OPERATIONS SPECIALIST can coordinate therapy if desired. For patients [...] or questions 10/20/2023 Mercedez Valente RN 10/20/2023 Amenorrhea, secondary 04/14/2023 Preoperative general physical examination [...] breech then ERLTCS. Last in 2019 at [facility]. Desires repeat with tubal at [facility]. Last Assessment & Plan: Planning ERCD History of TN (myocardial infarction) 07/27/2018 Overview: Age 27, s/p [...] as of this encounter (statuses as of 11/01/2023) Resolved Problems Problem Noted Date Diagnosed Date Resolved Date Tricuspid valve replaced 01/12/2022 Unspecified asthma, uncomplicated 03/14/2021 01/12/2022 Depressive disorder 03/14/2021 01/13/20 22 delivery delivered 08/23/2020 10/06/2020 Drug use affecting 07/10/2020 10/06/2020 Overview: +marijuana Asthma during 05/04/2020 01/01/2021 Last Assessment & Plan: She reports well-controlled [...] in 10 months. Using medical marijuana through [employer] 01/14/2020 Angy Chase RN 01/14/2020 nutrition Due [...] Taken Date entered Entered by Date resolved [facility] breastpump form completed and faxed to [facility] for pt. 07/23/2020 Lisset Gonzalez RN 07/23/2020 [...] uncomplicated 01/16/2019 01/14/2020 Tobacco use disorder 01/16/2019 09/08/ 023 Last Assessment & Plan: Strongly advised [...] amphedamines, marijuana on tox screen 07/31/18 at [facility] ED Bipolar 1 disorder 07/12/2017 [...] as of this encounter (statuses as of 11/01/2023) Immunizations Name Administration Dates Next Due COVID-19 mRNA, LNP-s, No Pre serve, 2-Dose Series (Moderna) 03/12/2022,02/10/2022 DTP Vaccine 09/02/1992, 2,1991,06/04 DTaP Dipth/Tet/Acell Pertussis (Infanrix), Peds 03/05/1996 HEP A - Hepatitis A (Adult > 18 yrs) 01/30/2019 HIB PRP-T, 4 dose (ActHib) 07/08/1992,,1991,06/04 HPV Vaccine, 4-Valent 07/14/2011,03/15/2011,12/01 HPV Vaccine, 9-Valent 07/14/2011,03/15/2011,03/2 10/2010 Haemophilius B (HIB), unspecified 1991,1991,1991,06/04 Hepatitis B, 0-19 yrs 11/17/1997,09/15/1997,09/01 Hepatitis B, 20+ yrs 01/30/2019 MMR - Measles/Mumps/Rubella Vaccine 03/05/1996,1 OPV - Polio Virus Vaccine (Oral) 996,09/02/1992,1991,06/04 PPD 07/19/2022,07/11/2022 Pneumococcal Polysaccharide PPV23 (Pneumovax) 10/01/2019,02/11/2014 Seasonal Influenza, PF, 6 M & above, IM , (FluLaval or Fluzone) 06/30/2022,08/30/2021,10/01/2019,09/05 TD - Tetanus/Diptheria (ADULT) 12/27/2002 TDAP (age 10 and older)(Boostrix) 06/11/2020,01/2018 Varicella Vaccine (Chicken Pox) 2004 documented as [...] money to get more. Sometimes true 11/2022 [place] Depression Scale Answer Date Recorded [place] Depression Scale Total 11 05/17/2023 The thought of harming myself has occurred to me . Never 05/17/2023 Estimated Date of Delivery Comme nts Yes [...] encounter Miscellaneous Notes * Telephone Encounter - Joann Aviles OSA - 08/02/2023 4:22 PM EDT Your patient failed to keep their appointment with you today. If you would like the patient rescheduled, please send this message to the scheduling team @ p [phone] and include the time frame you wouldlike them rescheduled in. MILENA Cash34:22 PM documented in this encounter Plan of Treatment Upcoming Encounters Date Type Department Care Team (Late st Contact Info) Description 11/02/2023 11:30 AM EST Office Visit Gynecology/Obstetrics [facility] [address] [place] [address] BackerShantelle CRNP [address] [place] [address] 11/06/2023 5:10 PM EST Anticoagulation [address] [place] [address] Tonya [facility] [address] [facility] [address] 11/13/2023 9:00 AM EST Office Visit Gynecology/Obstetrics [facility] [address] [place] [address] Marcellus Lira MD [address] [place] [address] 11/14/2023 3:30 PM EST [facility] [address] [place] [address] Kassi Cole, GERALD [address] [place] [address] 11/15/2023 9:00 AM EST Office Visit Gynecology/Obstetrics [facility] [address] [place] [address] Marcellus Lira MD [address] [place] [address] 11/24/2023 3:30 PM EST Office Visit [facility], [place] [address] [place] [address] Cristino Garcia, [address] [place] [address] 11/24/2023 3:30 PM EST Imaging Radiology [facility] [address] [place] [address] 11/28/2023 9:00 AM EST Office Visit Gynecology/Obstetrics [facility] [address] [place] [address] Marcellus Lira MD [address] [place] [address] 12/06/2023 2:00 PM EST Office Visit Gynecology/Obstetrics [facility] [address] [place] [address] Shantelle Richmond CRNP [address] [place] [address] 12/11/2023 9:00 AM EDT Office Visit Gynecology/Obstetrics [facility] [address] [place] [address] Marcellus Lira MD [address] [place] [address] 12/21/2023 11:30 AM EDT Office Visit Gynecology/Obstetrics [facility] [address] [place] [address] Shantelle Richmond CRNP [address] [place] [address] 02/22/2024 10:45 AM EDT Office Visit Cardiology [facility] [place] [address] [place], [place] [phone] Summer Cartagena CRNP [address] [place] [address] Health Maintenance Due Date Last Done Comments [...] this encounter Medical Devices Implanted Type Area Field Applications Specialist Device Identifier Shelf Expiration Date Model / Serial / Lot Ring Triad [id number] - [id number] Implanted:Qty: 1 on 08/09/2016 by Suha Harding MD at OR [facility] N/A: Heart [employer] 08/31/2019 [id number] / [id number] / [id number] documented as of this encounter Advance Directives [...]
--- OUTSIDE RECORDS SUMMARY | 2023-11-08 22:11 | External Medical Summary | Summary of Care ---
Author Name Unknown Organization [facility] Address [address] [place] [address] Phone [phone] Care Team Providers Care Roller Name Role Phone Unavailable Primary Care Provider Unavailabl e Reason for Visit * Reason Onset Date Comments Diabetes Follow-Up 11/03/2023 Encounter Details Date Type Department Care Team ([facility] st Contact Info) Description 11/03/2023 Telephone Commercial Cleaner Obstetrics [facility], [place] [address] [facility] [address] [place] [address] Karlee Sesay CRNP [address] [place] [address] Diabetes Follow-Up Allergies Active Allergy Reactions Criticality [...] Additional Information Patient not taking.Reported on 11/03/2023 stylefruits Flex System w/Device Kit Use to test blood sugars 4 times daily (fasting, 1 hour after breakfast, lunch, and dinner) 1 Kit 0 10/11/2023 Active FriendsterTouch Verio In Vitro Strip (Glucose Blood) Use to test blood sugars 4 times daily (fasting, 1 hour after breakfast, lunch, and dinner) 125 Strip 6 10/11/2023 Active FriendsterTouch Delica Lancets 30G Use to test blood [...] (dyspnea on exertion),PHT (pulmonary hypertension) ([facility]),Mild persistent asthma with exacerbation 2.5 [...] 233 10/19/2023 111 148 118 x 10/19/23: [facility] ADAPT consult complete. Enrolled in Current Health. 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 Advised patient to send us readings via the chat message --KW 10/31/23-elevated sugars; schedule for adapt 11/03/23: ADAPT visit complete; elevated FBS; ordered Lantus 10 units at bedtime Last Assessment & Plan: Patient encouraged to check BG 4x daily and report via Sticky[employer] neto to M ADAPT. Had issues with [...] Reports bipolar. Denies SI/HI. Obtained counseling through [facility]. Last Assessment & Plan: No meds, no concerns reported today. 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 S/p valve repair and denies any further issues. Also reports history of ND. She had a negative heart catheterization at [...] in January 2023. She reports that her baller tender said she had PH, but that they [...] patients who previously received 17P. Patient's primary MEDIA RELATIONS INTERN can coordinate therapy if desired. For patients [...] housing Emergency skilled nursing resources given 11/02/2023 Mercedze Valente RN 11/02/2023 Problem Action Taken Date [...] breech then ERLTCS. [place] [facility] Desires repeat with tubal [place] [facility]. Last Assessment & Plan: Planning ERCD History of ND (myocardial infarction) 07/27/2018 Overview: Age 27, s/p [...] in 10 months. Using medical marijuana through [facility] 01/14/2020 Angy Chase RN 01/14/2020 [...] entered Entered by Date resolved [facility] breastpump form completed and faxed to [facility] for pt. 07/23/2020 Lisset Gonzalez RN 07/23/2020 [...] amphedamines, marijuana on tox screen 07/31/18 at [facility] ED Bipolar 1 disorder 07/12/2017 8 Attention [...] money to get more. Sometimes true 11/2022 [place] Depression Scale Answer Date Recorded [place] Depression Scale Total 9 11/02/2023 The thought [...] encounter Miscellaneous Notes * Telephone Encounter - Sharron Robertson CRNP - 11/03/2023 12:46 PM EST Please see original message. Make sure pt is scheduled for twice weekly NST and make sure she is aware of these recommendations from [facility]. 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 Ordered: Lantus 10 units at bedtime MFM recommends and patient is aware: -Recommend twice weekly surveillance starting or once weekly BPP starting at 32 weeks (OB to coordinate) -Recommend every 4 week growth ultrasounds with MFM (next on 11/24/2023) -Recommend delivery during the 39th week and by EDC (or sooner if another indication) NICKOLAS [place] 11/03/2023 9:44 AM documented in this encounter Plan of Treatment Upcoming Encounters Date Type Department Care Team (Late st Contact Info) Description 11/06/2023 5:10 PM EST [place] [address] [place] [address] [facility] [address] [place] [address] 11/07/2023 11:15 AM EST Office Visit Gynecology/Obstetrics [facility] [address] [facility] [place] [address] Sharron Robertson CRNP [address] [place] [address] [facility] Non Stress Tests [facility] [address] [place] [address] 11/10/2023 8:30 AM EST Telemedicine Commercial Cleaner Obstetrics [facility], [place] [address] [facility] [address] [place] [address] Rickie Kearns CRNP [address] [facility] [address] [place] [address] 11/10/2023 9:15 AM EST Office Visit Gynecology/Obstetrics [facility] [address] [place] [address] Lesa Degroot PA-C [address] [place] [address] [place], Non Stress Tests [facility] [address] [place] [address] 11/13/2023 8:30 AM EST Office Visit Gynecology/Obstetrics [facility] [address] [place] [address] Marcellus Lira MD [address] [place] [address] [place], Non Stress Tests [facility] [address] [place] [address] 11/14/2023 3:30 PM EST Telemedicine Nutrition, [facility] [address] [place] [address] Kassi Cole RDN [address] [place] [address] 11/17/2023 9:00 AM EST Office Visit Gynecology/Obstetrics [facility] [address] [place] [address] Marcellus Lira MD [address] [place] [address] [place], Non Stress Tests [facility] [address] [place] [address] 11/20/2023 10:15 AM EST Office Visit Gynecology/Obstetrics [facility] [address] [place] [address] Shantelle Richmond CRNP [address] [place] [address] [facility] Non Stress Tests [facility] [address] [place] [address] 11/24/2023 3:30 PM EST Office Visit Commercial Cleaner Obstetrics [facility], [place] [address] [place] [address] Cristino Garcia, [address] [place] [address] 11/24/2023 3:30 PM EST [facility] [place] [address] [place] [address] 11/28/2023 8:30 AM EST Office Visit Gynecology/Obstetrics [facility] [address] [place] [address] Marcellus Lira MD [address] [place] [address] [facility] Non Stress Tests [facility] [address] [place] [address] 12/01/2023 9:00 AM EST Office Visit Gynecology/Obstetrics [facility] [address] [place] [address] Sharron Robertson CRNP [address] [place] [address] [facility] Non Stress Tests [facility] [address] [place] [address] 12/04/2023 11:00 AM EST Office Visit Gynecology/Obstetrics [facility] [address] [place] [address] Shnatelle Richmond CRNP [address] [place] [address] [facility] Non Stress Tests [facility] [address] [place] [address] 12/07/2023 9:45 AM EST Office Visit Gynecology/Obstetrics [facility] [address] [place] [address] Sharron Robertson CRNP [address] [place] [address] [place], Non Stress Tests [facility] [address] [place] [address] 12/11/2023 9:00 AM EDT Office Visit Gynecology/Obstetrics [facility] [address] [place] [address] Marcellus Lira MD [address] [place] [address] 12/21/2023 11:30 AM EDT Office Visit Gynecology/Obstetrics [facility] [address] [place] [address] Shantelle Richmond CRNP [address] [place] [address] 02/22/2024 10:45 AM EDT Office Visit Cardiology [facility] [place] [address] [place] [address] Summer Cartagena CRNP [address] [place] [phone] Health Maintenance Due Date Last Done Comments [...] encounter Medical Devices Implanted Type Area Computer Repair Instructor Device Identifier Shelf Expiration Date Model / Serial / Lot Ring Triad [id number] - [id number] Implanted:Qty: 1 on 08/09/2016 by Suha aHrding MD at [place] [facility] N/A: Heart [employer] 08/31/2019 [id number] / [id number] / [id number] documented as of this encounter Advance Directives [...]
--- OUTSIDE RECORDS SUMMARY | 2023-11-08 22:11 | External Medical Summary | Summary of Care ---
Author Name Unknown Organization [facility] Address [address] [place] [address] Phone [phone] Care Team Providers Care Manager Athletics Name Role Phone Unavailable Primary Care Provider Unavailabl e Reason for Visit * Reason Onset Date Comments Diabetes Follow-Up 11/03/2023 Encounter Details Date Type Department Care Team ([facility] st Contact Info) Description 11/03/2023 Telephone User Support Specialist Obstetrics Maternal Medicine, [place] [address] [facility] [address] [place] [address] Karlee Sesay CRNP [address] [place] [address] Diabetes Follow-Up Allergies Active Allergy Reactions Criticality [...] Additional Information Patient not taking.Reported on 11/03/2023 Channel Breeze Flex System w/Device Kit Use to test blood sugars 4 times daily (fasting, 1 hour after breakfast, lunch, and dinner) 1 Kit 0 10/11/2023 Active ITNTouch Verio In Vitro Strip (Glucose Blood) Use to test blood sugars 4 times daily (fasting, 1 hour after breakfast, lunch, and dinner) 125 Strip 6 10/11/2023 Active ITNTouch Delica Lancets 30G Use to test blood [...] 2.5 mgIndications:BLAKE (dyspnea on exertion),PHT (pulmonary hypertension) ([facility]),Mild persistent asthma with exacerbation 2.5 mg [...] 233 10/19/2023 111 148 118 x 10/19/23: [facility] ADAPT consult complete. Enrolled in Current Health. 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 Advised patient to send us readings via the chat message --KW 10/31/23-elevated sugars; schedule for adapt 11/03/23: ADAPT visit complete; elevated FBS; ordered Lantus 10 units at bedtime Last Assessment & Plan: Patient encouraged to check BG 4x daily and report via [employer] neto to M ADAPT. Had issues with [...] Reports bipolar. Denies SI/HI. Obtained counseling through [facility]. Last Assessment & Plan: No meds, no concerns reported today. 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 S/p valve repair and denies any further issues. Also reports history of RI. She had a negative heart catheterization at [...] in January 2023. She reports that her information security officer said she had PH, but that [...] patients who previously received 17P. Patient's primary MANAGER LIFE INSURANCE can coordinate therapy if desired. For patients [...] by Date resolved Lack of housing Emergency alf resources given 11/02/2023 Mercedez Valente RN 11/02/2023 [...] Assessment & Plan: Planning ERCD History of RI (myocardial infarction) 07/27/2018 Overview: Age 27, s/p [...] in 10 months. Using medical marijuana through [facility] 01/14/2020 Angy Chase RN 01/14/2020 [...] Taken Date entered Entered by Date resolved [facility] breastpump form completed and faxed to [facility] for pt. 07/23/2020 Lisset Gonzalez RN [...] amphedamines, marijuana on tox screen 07/31/18 at [facility] ED Bipolar 1 disorder 07/12/2017 8 [...] money to get more. Sometimes true 11/2022 [place] Depression Scale Answer Date Recorded [place] Depression Scale Total 9 11/02/2023 The thought [...] LPN - 11/03/2023 12:50 PM EST Shantelle Yi reviewed with pt yesterday and had her scheduled twice weekly NST's at checkout. * Telephone Encounter - Sharron Robertson CRNP - 11/03/2023 12:46 PM EST Please see original message. Make sure pt is scheduled for twice weekly NST and make sure she is aware of these recommendations from [facility]. 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 Ordered: Lantus 10 units at bedtime MFM recommends and patient is aware: -Recommend twice weekly surveillance starting or once weekly BPP starting at 32 weeks (OB to coordinate) -Recommend every 4 week growth ultrasounds with [facility] (next on 11/24/2023) -Recommend delivery during the 39th week and by EDC (or sooner if another indication) NICKOLAS Spicer 11/03/2023 9:44 AM documented in this encounter Plan of Treatment Upcoming Encounters Date Type Department Care Team (Late st Contact Info) Description 11/06/2023 5:10 PM EST Anticoagulation [facility] [address] [place] [address] [facility] [address] [place] [address] 11/07/2023 11:15 AM EST Office Visit Gynecology/Obstetrics [facility] [address] [place] [address] Sharron Robertson CRNP [address] [place] [place] [address] [facility] Non Stress Tests Jalen [address] [place] [place] [address] 11/10/2023 8:30 AM EST Telemedicine User Support Specialist Obstetrics Maternal Medicine, [place] [address] [facility] [address] [place] [address] Rickie Kearns CRNP 190 [facility] [address] [place] [address] 11/10/2023 9:15 AM EST Office Visit Gynecology/Obstetrics [facility] [address] [place] [address] Lesa Degroot PA-C [address] [place] [address] Raymon Non Stress Tests Jalen [address] [place] [address] 11/13/2023 8:30 AM EST Office Visit Gynecology/Obstetrics [facility] [address] [place] [address] Marcellus Lira MD [address] [place] [address] Raymon Non Stress [facility] Jalen [address] [place] [address] 11/14/2023 3:30 PM EST Telemedicine Nutrition, J[facility] [address] [place] [address] Kassi Cole RDN [address] [place] [address] 11/17/2023 9:00 AM EST Office Visit Gynecology/Obstetrics [facility] [address] [place] [address] Marcellus Lira MD [address] [place] [address] [place], Non Stress Tests Jalen [address] [place] [address] 11/20/2023 10:15 AM EST Office Visit Gynecology/Obstetrics [facility] [address] [place] [address] Shantelle Richmond CRNP [address] [place] [address] Ennis, Non Stress Tests Jalen [address] [place] [address] 11/24/2023 3:30 PM EST Office Visit User Support Specialist Obstetrics Maternal Medicine, [place] [address] [place] [address] Cristino Garcia [address] [place] [address] 11/24/2023 3:30 PM EST Imaging Radiology [facility] [place] [address] [place] [address] 11/28/2023 8:30 AM EST Office Visit Gynecology/Obstetrics Jesuss Raymon [address] [place] [address] Marcellus Lira MD [address] [place] [address] Ennis, Non Stress Tests Jalen [address] [place] [address] 12/01/2023 9:00 AM EST Office Visit Gynecology/Obstetrics [facility] [address] [place] [address] Sharron Robertson CRNP [address] [place] [address] Ennis, Non Stress Tests Jalen [address] [place] [address] 12/04/2023 11:00 AM EST Office Visit Gynecology/Obstetrics Saundra Ennis [address] [place] [address] Shantelle Richmond CRNP [address] [place] [address] EnnisJennifer Stress Tests Jalen [address] [place] [address] 12/07/2023 9:45 AM EST Office Visit Gynecology/Obstetrics Saundra Ennis [address] [place] [address] Sharron Robertson CRNP [address] [place] [address] Jennifer Ennis Stress Tests Jalen [address] [place] [address] 12/11/2023 9:00 AM EDT Office Visit Gynecology/Obstetrics Saundra Ennis [address] [place] [address] Marcellus Lira MD [address] [place] [address] 12/21/2023 11:30 AM EDT Office Visit Gynecology/Obstetrics Saundra Ennis [address] [place] [address] Shantelle Richmond CRNP [address] [place] [address] 02/22/2024 10:45 AM EDT Office Visit Cardiology [facility] [address] [place] [address] Summer Cartagena CRNP [address] [place] [address] Health Maintenance Due Date Last [...] this encounter Medical Devices Implanted Type Area Commercial Portfolio Manager Device Identifier Shelf Expiration Date Model / Serial / Lot Ring Triad [id number] - [id number] Implanted:Qty: 1 on 08/09/2016 by Suha Harding MD at [place] [facility] N/A: Heart [employer] 08/31/2019 [id number] / [id number] / [id number] documented as of this encounter Advance Directives [...]
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
--- OUTSIDE RECORDS SUMMARY | 2023-11-08 22:11 | External Medical Summary | Summary of Care ---
Author Name Unknown Organization [facility] Address [address] [place] [address] Phone [phone] Care Team Providers Care Physical Biochemist Name Role Phone Unavailable Primary Care Provider Unavailabl e Reason for Visit * Reason Comments Follow Up Gestational diabetes Encounter Details Date Type Department Care Team (Late st Contact Info) Description 11/03/2023 7:30 AM EST Telemedicine Freight Hustler Obstetrics Maternal Medicine, [address] [address] Karlee Sesay CRNP [address] [place] [address] Supervision of high risk in third trimester*; 32 weeks gestation of ; Insulin controlled gestational diabetes mellitus (GDM) in [...] Additional Information Patient not taking.Reported on 11/03/2023 Fed Playbook Flex System w/Device Kit Use to test blood sugars 4 times daily (fasting, 1 hour after breakfast, lunch, and dinner) 1 Kit 0 10/11/2023 Active Fed Playbook In Vitro Strip (Glucose Blood) Use to test blood sugars 4 times daily (fasting, 1 hour after breakfast, lunch, and dinner) 125 Strip 6 10/11/2023 Active tapviva Delica Lancets 30G Use to test blood [...] 2.5 mgIndications:BLAKE (dyspnea on exertion),PHT (pulmonary hypertension) ([facility]),Mild persistent asthma with exacerbation 2.5 mg [...] 233 10/19/2023 111 148 118 x 10/19/23: [facility] ADAPT consult complete. Enrolled in Current Health. 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 Advised patient to send us readings via the chat message --KW 10/31/23-elevated sugars; schedule for adapt 11/03/23: ADAPT visit complete; elevated FBS; ordered Lantus 10 units at bedtime Last Assessment & Plan: Patient encouraged to check BG 4x daily and report via Cenify neto to M ADAPT. Had issues with Current Health due to work schedule. Blood pressure elevated without history of HTN 1 11/07/2022 Food insecurity 08/14/2023 Overview: Per [facility] Protocol Supervision of high risk in third trim guzman 08/08/2023 Last Assessment & Plan: growth and fluid appropriate for gestational age. All visualized anatomy appears normal. BLAKE (dyspnea on exertion) 06/26/2023 Bipolar disease during 06/09/2023 Overview: Reports bipolar. Denies SI/HI. Obtained counseling through [facility]. Last Assessment & Plan: No meds, no concerns reported today. 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 S/p valve repair and denies any further issues. Also reports history of DE. She had a negative heart catheterization at [...] in January 2023. She reports that her sock examiner said she had PH, but that they [...] patients who previously received 17P. Patient's primary WIND TECHNICIAN can coordinate therapy if desired. For [...] by Date resolved Lack of housing Emergency [place] [facility] resources given 11/02/2023 Mercedez Valente RN 11/02/2023 [...] breech then ERLTCS. Last in [address] [facility]. Desires repeat with tubal at [facility]. Last Assessment & Plan: Planning ERCD History of DE (myocardial infarction) 07/27/2018 Overview: Age 27, s/p [...] in 10 months. Using medical marijuana through [facility] 01/14/2020 Angy Chase RN 01/14/2020 nutrition [...] Taken Date entered Entered by Date resolved [facility] breastpump form completed and faxed to [facility] for pt. 07/23/2020 Lisset Gonzalez RN 07/23/2020 Problem Action Taken Date entered Entered by Date resolved Current needs or questions Patient denies having any current needs or questions 07/29/2020 Angy hCase RN 07/29/2020 Problem Action Taken Date entered Entered by Date resolved Current needs or questions Patient denies having any current needs or questions 08/07/2020 Lisset Gonzalez RN 08/07/2020 Hx of delivery, currently 01/14/2020 10/06/2020 Overview: Delivered at 35w0d Previously on [place] Stopped at 36w Opioid dependence, uncomplicated 01/16/2019 [...] amphedamines, marijuana on tox screen 07/31/18 at [facility] ED Bipolar 1 disorder 07/12/2017 [...] money to get more. Sometimes true 11/2022 [place] Depression Scale Answer Date Recorded [place] Depression Scale Total 9 11/02/2023 The thought [...] as of this encounter Progress Notes * Karlee Sesay CRNP - 11/03/2023 7:39 AM EST Images from the original note were not included. MATERNAL MEDICINE VISIT Patient location: HOME. I was in a hospital or clinic location. After connecting through LiveStorieso,patient was verified with two unique identifiers. Patient (or authorized legal equal opportunity representative) was then informed that this was a Telemedicine visit and being conducted confidentially over secure lines. Methods to assure confidentiality were taken. Patient acknowledged consent and understanding of pr ivacy and security of the Telemedicine visit. The patient agreed to participate. Nancy Hernandez is a 33 year old year old with intrauterine at 32w5d who [facility] for management of diabetes in . CC/HPI: Here for f/u visit. 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 REVIEW OF SYSTEMS: reports movement: yes (+ kick counts) abdominal pain/tenderness/cramping/contractions: no vaginal bleeding: no vaginal leaking of fluid: no all other systems negative PHYSICAL EXAM: There were no vitals taken for this visit. Constitutional: well-developed, well nourished General: pleasant, alert and oriented Neuro: mood and affect normal, alert and oriented, no acute distress DISCUSSION: -We discussed continuing to test blood sugars 4 times a day (fasting, one hour after breakfast, lunch, and dinner). Encourage compliance with Current Health RPM. -Briefly reviewed GDM diet recommendations. Encourage compliance with Insurance Sales Assistant. -We discussed eating a bedtime snack and fasting 8-10 hours overnight to help with sugar control inthe fasting timeframe. -Encourage 20-30 minutes a day of exercise (walking, light upper body strength training, yoga, stationary cycling, or swimming). -We discussed the goal of euglycemia in order to create a stable environment for the fetus. She is aware that with diabetes are at increased risk for multiple complications to both mother and fetus. -Recommend starting medication for elevated FBS. Patient elects for insulin. Reviewed insulin administration instruction. I advised her on appropriate technique for administration and she verbalized understanding. -Reviewed how to recognize and treat hypoglycemia. -I encouraged the patient to reach out to M in the event that she has any questions regarding diabetes management. RECOMMENDATIONS: Management: ordered Lantus 10 units at bedtime. Scheduled on 11/24/[address] Garcia for growth scan . Recommend twice weekly NSTs starting at 32 weeks for A2GDM. Follow up is scheduled with NICKOLAS Neumann on 11/10/2023 @ 8:30AM via telemedicine for ADAPT (Advanced Diabetes And Team). Thank you for allowing us to participate in the care of this patient. Please call with any questions. NICKOLAS Spicer 11/03/2023 9:43 AM documented in this encounter Miscellaneous Notes * Pt Handout (on AVS) - Karlee Sesay CRNP - 11/03/2023 9:36 AM EST Images from the original note were not included. Lantus Solostar Pen: How to Inject a Dose - Video Let's take a minute to talk about how to use your Lantus SoloStar insulin pen. You will need clean hands, alcohol swabs, and a compatible needle, like BD Ultra-Fine pen needles. You will also need anapproved "sharps container". To dispose of the needles. To view the video go to this web address: https://bit.ly/[email or web address] Or, scan this QR code with your smart phone 2023 [employer]. All Rights Reserved. documented in this encounter Plan of Treatment Upcoming Encounters Date Type Department Care Team (Late st Contact Info) Description 11/06/2023 5:10 PM EST Anticoagulation Pharmacy, [place] [address] [facility], [place] [address] [facility] [address] [facility], [place] [address] 11/07/2023 11:15 AM EST Office Visit Gynecology/Obstetrics Saundra [place] [address] [place] [address] Sharron Robertson CRNP [address] [place] [address] Raymon, Non Stress Tests Jalen [address] [place] [address] 11/10/2023 8:30 AM EST Telemedicine Freight Hustler Obstetrics Maternal Medicine, [place] [address] [facility] [address] [place] [address] Rickie Kearns CRNP [address] [facility] [address] [place] [address] 11/10/2023 9:15 AM EST Office Visit Gynecology/Obstetrics Jesuss [place] [address] [place] [address] Lesa Degroot PA-C [address] [place] [address] Raymon, Non Stress Tests Jalen [address] [place] [address] 11/13/2023 8:30 AM EST Office Visit Gynecology/Obstetrics [facility] [address] [place] [address] Marcellus Lira MD [address] [place] [address] Raymon, Non Stress Tests Jalen [address] [place] [address] 11/14/2023 3:30 PM EST Telemedicine Nutrition, Jalen Ennis [address] [place] [address] Kassi Cole, GERALD [address] [place] [address] 11/17/2023 9:00 AM EST Office Visit Gynecology/Obstetrics [facility] [place] [address] [place] [address] Marcellus Lira MD [address] [place] [address] Raymon Non Stress Tests Jalen [address] [place] [address] 11/20/2023 10:15 AM EST Office Visit Gynecology/Obstetrics [facility] [place] [address] [place] [address] Shantelle Richmond CRNP [address] [place] [address] Raymon Non Stress Tests Jalen [address] [place] [address] 11/24/2023 3:30 PM EST Office Visit Freight Hustler Obstetrics Maternal Medicine, [address] [address] Cristino Garcia, [address] [place] [address] 11/24/2023 3:30 PM EST Imaging Radiology [facility] [place] [address] [facility] [place] [address] 11/28/2023 8:30 AM EST Office Visit Gynecology/Obstetrics [facility] Nogueiras [address] [place] [address] Marcellus Lira MD [address] [place] [address] Raymon, Non Stress Tests Jalen [address] [place] [address] 12/01/2023 9:00 AM EST Office Visit Gynecology/Obstetrics [facility] [place] [address] [place] [address] Sharron Robertson CRNP [address] [place] [address] Raymon Non Stress Tests Jalen [address] [place] [address] 12/04/2023 11:00 AM EST Office Visit Gynecology/Obstetrics Saundra Nogueiras [address] [place] [address] Shantelle Richmond CRNP [address] [place] [address] Raymon Non Stress Tests Jalen [address] [place] [address] 12/07/2023 9:45 AM EST Office Visit Gynecology/Obstetrics [facility] [address] [place] [address] Sharron Robertson CRNP [address] [place] [address] Ennis, Non Stress Tests Jalen [address] [place] [address] 12/11/2023 9:00 AM EDT Office Visit Gynecology/Obstetrics [facility] [address] [place] [address] Marcellus Lira MD [address] [place] [address] 12/21/2023 11:30 AM EDT Office Visit Gynecology/Obstetrics [facility] [address] [place] [address] Shantelle Richmond CRNP [address] [place] [address] 02/22/2024 10:45 AM EDT Office Visit Cardiology [facility] [address] [place], [place] [id number] Summer Cartagena CRNP [address] [place] [id number] Health Maintenance Due Date Last Done Comments Pneumococcal Vaccine: Pediatrics (0 to 5 Years) and At-Risk Patients (6 to 64 Years) (2 - PCV) 10/01/2020 10/01/2019, 02/11/2014 COVID-19 Vaccine (3 24 season) 2023 03/12/2022, 02/10/2022 Depression Screening 11/17/2023 [...] this encounter Medical Devices Implanted Type Area Epidemiology Internship Device Identifier Shelf Expiration Date Model / Serial / Lot Ring Triad [id number] - [id number] Implanted:Qty: 1 on 08/09/2016 by Suha Harding MD at OR [facility] N/A: Heart [employer] 08/31/2019 [id number] / [id number] / [id number] documented as of this encounter Visit Diagnoses Diagnosis Supervision of high risk in third trimester- Primary Unspecified high-risk 32 weeks gestation of state, incidental Insulin controlled gestational diabetes mellitus (GDM) in [...]
--- OUTSIDE RECORDS SUMMARY | 2023-11-08 22:11 | External Medical Summary | Summary of Care ---
Author Name Unknown Organization [facility] Address [address] [place] [address] Phone [phone] Care Team Providers Care Lacing Presser Name Role Phone Unavailable Primary Care Provider Unavailabl e Reason for Visit * Reason Onset Date Comments Diabetes Follow-Up 11/03/2023 Encounter Details Date Type Department Care Team ([facility] st Contact Info) Description 11/03/2023 Telephone Analytic Manager Obstetrics Maternal Medicine, [place] [address] [facility] [address] [place] [address] Karlee Sesay CRNP [address] [place] [address] Diabetes Follow-Up Allergies Active Allergy Reactions Criticality [...] Additional Information Patient not taking.Reported on 11/03/2023 Plazapoints (Cuponium) Flex System w/Device Kit Use to test blood sugars 4 times daily (fasting, 1 hour after breakfast, lunch, and dinner) 1 Kit 0 10/11/2023 Active Contractors_AIDTouch Verio In Vitro Strip (Glucose Blood) Use to test blood sugars 4 times daily (fasting, 1 hour after breakfast, lunch, and dinner) 125 Strip 6 10/11/2023 Active Contractors_AIDTouch Delica Lancets 30G Use to test blood [...] (dyspnea on exertion),PHT (pulmonary hypertension) ([facility]),Mild persistent asthma with exacerbation 2.5 mg [...] 233 10/19/2023 111 148 118 x 10/19/23: [facility] ADAPT consult complete. Enrolled in Current Health. 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 Advised patient to send us readings via the chat message --KW 10/31/23-elevated sugars; schedule for adapt 11/03/23: ADAPT visit complete; elevated FBS; ordered Lantus 10 units at bedtime Last Assessment & Plan: Patient encouraged to check BG 4x daily and report via SaveUp neto to M ADAPT. Had issues with [...] Reports bipolar. Denies SI/HI. Obtained counseling through [facility]. Last Assessment & Plan: No meds, no concerns reported today. 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 S/p valve repair and denies any further issues. Also reports history of [place]. She had a negative heart catheterization at [...] in January 2023. She reports that her cash applications clerk said she had PH, but that they [...] patients who previously received 17P. Patient's primary ELECTRIC FORK OPERATOR can coordinate therapy if desired. For [...] housing Emergency long-term resources given 11/02/2023 Mercedez Valente RN 11/02/2023 [...] breech then ERLTCS. Last in 2019 at [facility]. Desires repeat with tubal at [facility]. Last Assessment & Plan: Planning ERCD History of NC (myocardial infarction) 07/27/2018 Overview: Age 27, s/p [...] in 10 months. Using medical marijuana through [facility] 01/14/2020 Angy Chase RN 01/14/2020 [...] Taken Date entered Entered by Date resolved [facility] breastpump form completed and faxed to [facility] for pt. 07/23/2020 Lisset [...] marijuana on tox screen 07/31/18 at [facility] ED Bipolar 1 disorder 07/12/2017 8 [...] money to get more. Sometimes true 11/2022 [place] Depression Scale Answer Date Recorded [place] Depression Scale Total 9 11/02/2023 The thought [...] encounter Miscellaneous Notes * Telephone Encounter - Karlee Sesay CRNP [...] Contact Info) Description 11/06/2023 5:10 PM EST [facility], [place] [address] [facility] [place] [address] [place] [facility] [address] [facility], [place] [address] 11/07/2023 11:15 AM EST Office [facility] [address] [place] [address] Sharron Robertson CRNP [address] [place] [address] Raymon, Non Stress Tests Jalen [address] [place] [address] 11/10/2023 8:30 AM EST Telemedicine Analytic Manager Obstetrics Maternal Medicine, [place] [address] [facility] [address] [place] [address] Rickie Kearns CRNP [address] [facility] [address] [place] [address] 11/10/2023 9:15 AM EST Office Visit [facility]necology[facility]s [facility] [address] [place] [address] Lesa Degroot PA-C [address] [place] [address] Raymon, Non Stress Tests Jalen [address] [place] [address] 11/13/2023 8:30 AM EST Office Visit Gynecology/Obstetrics [facility] [address] [place] [address] Marcellus Lira MD [address] [place] [address] [place], Non Stress Tests Jalen [address] [place] [address] 11/14/2023 3:30 PM EST Telemedicine Nutrition, Jalen Nogueiras [address] [place] [address] Kassi Cole, GERALD [address] [place] [address] 11/17/2023 9:00 AM EST Office Visit Gynecology/Obstetrics [facility] [address] [place] [address] Marcellus Lira MD [address] [place] [address] Ennis, Non Stress Tests Jalen [address] [place] [address] 11/20/2023 10:15 AM EST Office Visit Gynecology/Obstetrics [facility] [address] [place] [address] Shantelle Richmond CRNP [address] [place] [address] Ennis, Non Stress Tests Jalen [address] [place] [address] 11/24/2023 3:30 PM EST Office Visit Analytic Manager Obstetrics Maternal Medicine, [place] [address] [place] [address] Cristino Garcia, [address] [facility] [address] 11/24/2023 3:30 PM EST Imaging Radiology [facility] [place], [place] [address] [place] [address] 11/28/2023 8:30 AM EST Office Visit Gynecology/Obstetrics [facility] [address] [place] [address] Marcellus Lira MD [address] [place] [address] Raymon Non Stress Tests Jalen [address] [place] [address] 12/01/2023 9:00 AM EST Office Visit Gynecology/Obstetrics [facility] [address] [place] [address] Sharron Robertson CRNP [address] [place] [address] Raymon Non Stress Tests Jalen [address] [place] [address] 12/04/2023 11:00 AM EST Office Visit Gynecology/Obstetrics [facility] [address] [place] [address] Shantelle Richmond CRNP [address] [place] [address] Raymon, Non Stress Tests Jalen [address] [place] [address] 12/07/2023 9:45 AM EST Office Visit Gynecology/Obstetrics [facility] [address] [place] [address] Sharron Robertson CRNP [address] [place] [address] Ennis Banner Stress Tests [facility] [address] [place] [address] 12/11/2023 9:00 AM EDT Office Visit Gynecology/Obstetrics [facility] [address] [place] [address] Marcellus Lira MD [address] [place] [address] 12/21/2023 11:30 AM EDT Office Visit Gynecology/Obstetrics [facility] [address] [place] [address] Shantelle Richmond CRNP [address] [place] [address] 02/22/2024 10:45 AM EDT Office Visit Cardiology [facility], [place] [address] [place] [address] Summer Cartagena CRNP [address] [place] [address] Health Maintenance Due Date Last [...] this encounter Medical Devices Implanted Type Area Shell Coremaker Device Identifier Shelf Expiration Date Model / Serial / Lot Ring Triad [id number] - [id number] Implanted:Qty: 1 on 08/09/2016 by Suha Harding MD at OR [facility] N/A: Heart [employer] 08/31/2019 [id number] / [id number] / [id number] documented as of this encounter Advance Directives [...]
--- OUTSIDE RECORDS SUMMARY | 2023-11-08 22:11 | External Medical Summary | Summary of Care ---
Author Name Unknown Organization [facility] Address [address] [place] [address] Phone [phone] Care Team Providers Care Real Estate Instructor Name Role Phone Unavailable Primary Care Provider Unavailabl e Encounter Details Date Type Department Care Team (Late st Contact Info) Description 10/31/2023 Telephone Systems Eng Obstetrics Maternal Medicine, [place] [address] [place], [place] [id number] [place], Nurse Systems Eng [facility] [address] [place], [place] [phone] Allergies Active Allergy Reactions Criticality Noted Date [...] Active Additional Information Patient taking differently: 2 [place] Nasal DAILY PRN, Reported on 11/04/2022 Buprenorphine [...] daily while 1 Each 0 10/06/2023 Active JouleX Flex System w/Device Kit Use to test blood sugars 4 times daily (fasting, 1 hour after breakfast, lunch, and dinner) 1 Kit 0 10/11/2023 Active JouleX In Vitro Strip (Glucose Blood) Use to test blood sugars 4 times daily (fasting, 1 hour after breakfast, lunch, and dinner) 125 Strip 6 10/11/2023 Active cloud.IQ DelKlangoo Lancets 30G Use to test blood sugars [...] (Proventil) (2.5 MG/3ML) 0.083% inhalation solution 2.5 mgIndications:BLAEK (dyspnea on exertion),PHT (pulmonary hypertension) ([facility]),Mild persistent asthma with exacerbation 2.5 [...] 1 hr after Dinner 10/12/23 90 246 [place] yogurt, raspberries, tea 129 99 10/13/23 86 [...] 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 Advised patient to send us readings via the chat message --KW 10/31/23-elevated sugars; schedule for adapt Last Assessment & Plan: Patient encouraged to check BG 4x daily and report via Protochips neto to MFM ADAPT. Had issues with [...] Reports bipolar. Denies SI/HI. Obtained counseling through [facility]. Last Assessment & Plan: No meds, no concerns reported today. 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 S/p valve repair and denies any further issues. Also reports history of AL. She had a negative heart catheterization at [...] am in the process of scheduling her [facility] sometime next week for delivery planning and [...] in January 2023. She reports that her associate professor of geology said she had PH, but that they [...] child born at 35 weeks. Was on [place] in previous pregnancies. Last Assessment & Plan: [...] patients who previously received 17P. Patient's primary SENIOR LEAD SOFTWARE ENGINEER can coordinate therapy if desired. For patients [...] by Date resolved Lack of housing Emergency assisted resources given 11/02/2023 Mercedez Valente RN 11/02/2023 [...] breech then ERLTCS. [place] [facility] Desires repeat with tubal at [facility]. Last Assessment & Plan: Planning ERCD History of AL (myocardial infarction) 07/27/2018 Overview: Age 27, s/p [...] in 10 months. Using medical marijuana through [facility] 01/14/2020 Angy Chase RN 01/14/2020 nutrition [...] amphedamines, marijuana on tox screen 07/31/18 at [facility] ED Bipolar 1 disorder 07/12/2017 8 [...] money to get more. Sometimes true 11/2022 [place] Depression Scale Answer Date Recorded [place] Depression Scale Total 9 11/02/2023 The thought [...] encounter Miscellaneous Notes * Telephone Encounter - Henrietta Ng OSA - 11/02/2023 2:34 PM EST Spoke with Felipa. Appointment scheduled. Patient aware of date, time and location of Maternal Medicine appointment. * Telephone Encounter - Soco Villalba OSA - 10/31/2023 9:38 AM EST Phone call to patient. Left message on Nancy's voice mail. Encouraged patient to return call to [facility] to assist with scheduling. Also sent MyG message. * Telephone Encounter - Soco Villalba OSA - 10/31/2023 9:38 AM EST ----- Message from Gisselle Inman LPN sent at 10/31/2023 8:22 AM EST ----- Regarding: adapt Please schedule for adapt follow up documented in this encounter Plan of Treatment Upcoming Encounters Date Type Department Care Team (Late st Contact Info) Description 11/03/2023 7:30 AM EST Telemedicine Systems Eng Obstetrics Maternal Medicine, [place] [address] [facility] [address] [place] [address] Karlee Sesay CRNP [address] [place] [facility] [address] 11/06/2023 5:10 PM EST Anticoagulation Pharmacy, [place] [address] [place] [facility] [place] [address] [facility] [address] [place] [facility] [place] [address] 11/07/2023 11:15 AM EST Office Visit Gynecology/Obstetrics [facility] [place] [address] [place] [address] Sharron Robertson CRNP [address] [place] [address] [place], Non Stress Tests [place] [address] [place] [address] 11/10/2023 9:15 AM EST Office Visit Gynecology/Obstetrics [facility] [place] [address] [place] [address] Lesa Degroot PA-C [address] [place] [address] [place], Non Stress Tests [place] [address] [place] [address] 11/13/2023 8:30 AM EST Office Visit Gynecology/Obstetrics [facility] [place] [address] [place] [address] Marcellus Lira MD [address] [place] [address] [place], Non Stress Tests [place] [address] [place] [address] 11/14/2023 3:30 PM EST Telemedicine Nutrition, [place] [address] [place] [address] Kassi Cole RDN [address] [place] [address] 11/17/2023 9:00 AM EST Office Visit Gynecology/Obstetrics [facility] [place] [address] [place] [address] Marcellus Lira MD [address] [place] [address] [place], Non Stress Tests [place] [address] [place] [address] 11/20/2023 10:15 AM EST Office Visit Gynecology/Obstetrics [facility] [place] [address] [place] [address] Shantelle Richmond CRNP [address] [place] [address] [place], Non Stress Tests [place] [address] [place] [address] 11/24/2023 3:30 PM EST Office Visit Systems Eng Obstetrics Maternal Medicine, [place] [address] [place] [address] Cristino Garcia, [address] [place] [address] 11/24/2023 3:30 PM EST [facility] [place] [address] [place] [address] 11/28/2023 8:30 AM EST Office Visit Gynecology/Obstetrics [facility] [place] [address] [place] [address] Marcellus Lira MD [address] [place] [address] [place], Non Stress Tests [place] [address] [place] [address] 12/01/2023 9:00 AM EST Office Visit Gynecology/Obstetrics [facility] [place] [address] [place] [address] Sharron Robertson CRNP [address] [place] [address] [place], Non Stress Tests [place] [address] [place] [address] 12/04/2023 11:00 AM EST Office Visit Gynecology/Obstetrics [facility] [place] [address] [place] [address] Shantelle Richmond CRNP [address] [place] [address] [place], Non Stress Tests [place] [address] [place] [address] 12/07/2023 9:45 AM EST Office Visit Gynecology/Obstetrics [facility] [place] [address] [place] [address] Sharron Robertson CRNP [address] [place] [address] [place], Non Stress Tests [place] [address] [place] [address] 12/11/2023 9:00 AM EDT Office Visit Gynecology/Obstetrics [facility] [place] [address] [place] [address] Marcellus Lira MD [address] [place] [address] 12/21/2023 11:30 AM EDT [facility] [place] [address] [place] [address] Shantelle Richmond CRNP [address] [place] [address] 02/22/2024 10:45 AM EDT Office Visit Cardiology [facility], [place] [address] [place] [address] Summer Cartagena CRNP [address] [place] [address] Health Maintenance Due Date Last [...] this encounter Medical Devices Implanted Type Area Dye And Chemical Coordinator Device Identifier Shelf Expiration Date Model / Serial / Lot Michael Amezquita [id number] - [id number] Implanted:Qty: 1 on 08/09/2016 by Suha Harding MD [place] [facility] N/A: Heart [employer] 08/31/2019 [id number] / [id number] / [id number] documented as of this encounter Advance Directives [...]
--- OUTSIDE RECORDS SUMMARY | 2023-11-08 22:12 | External Medical Summary | Summary of Care ---
Author Name Unknown Organization [facility] Address [address] [place] [address] Phone [phone] Care Team Providers Care Machine Design Engineer Name Role Phone Unavailable Primary Care Provider Unavailabl e Reason for Visit * Reason Comments Ultrasound Encounter Details Date Type Department Care Team (Late st Contact Info) Description 10/27/2023 3:00 PM EST Office Visit Extruding Department Supervisor Obstetrics Maternal Medicine, [place] [address] [place], [place] [phone] Cristino Garcia, [address] [place], [place] [phone] Anxiety during *; Bipolar disease during in third trimester ([facility]); Chronic hepatitis C affecting antepartum care of mother ([facility]); Diet controlled gestational diabetes mellitus (GDM) in third trimester; H/O tricuspid valve repair; Heart disease in mother affecting in first trimester; History of section complicating ; History of endocarditis; History of delivery; History of pulmonary embolism; Maternal asthma complicating ; PHT (pulmonary hypertension) ([facility]); complicated by subutex maintenance, antepartum ([facility]); Supervision of high risk in third trimester Allergies Active Allergy Reactions Criticality Noted Date Comments Sulfamethoxazole-Trimetho prim Nausea/vomiting Medium 01/19/2018 Nausea when taken with keflex Doxycycline Nausea/vomiting Medium 09/10/2018 Cephalexin Nausea/vomiting Medium 01/19/2018 Nausea when taken with bactrim documented as of this encounter (statuses as of 10/27/2023) Medications Medication Sig Dispensed Refills Start Date [...] Active Additional Information Patient taking differently: 2 [place] Nasal DAILY PRN, Reported on 11/04/2022 Buprenorphine [...] weeks gestation. 12 mL 5 06/19/2023 Active valACYclovir HCl 500 MG Oral Tablet (Valtrex)Indications :Genital herpes simplex, unspecified site Take 1 Tablet by mouth in the morning. 30 Tablet 3 07/06/2023 Active Ondansetron 4 MG Oral Tablet Disintegrating [...] daily while 1 Each 0 10/06/2023 Active Enliken Flex System w/Device Kit Use to test blood sugars 4 times daily (fasting, 1 hour after breakfast, lunch, and dinner) 1 Kit 0 10/11/2023 Active Enliken In Vitro Strip (Glucose Blood) Use to test blood sugars 4 times daily (fasting, 1 hour after breakfast, lunch, and dinner) 125 Strip 6 10/11/2023 Active MobilyTrip Delica Lancets 30G Use to test blood sugars 4 times daily (fasting, 1 hour after breakfast, lunch, and dinner) 200 Each 6 10/11/2023 Active Hospital, Clinic, or Other Facility Administered [...] 2.5 mgIndications:BLAKE (dyspnea on exertion),PHT (pulmonary hypertension) ([facility]),Mild persistent asthma with exacerbation 2.5 mg NEBULIZER Q4H PRN 09/01/2023 Active documented as of this encounter (statuses as of 10/27/2023) Active Problems Problem Noted Date Diagnosed Date [...] 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 Advised patient to send us readings via the chat message --KW Last Assessment & Plan: Patient encouraged to check BG 4x daily and report via Oscilla Power neto to MFM ADAPT. Had issues with Current Health due to work schedule. Blood pressure elevated without history of HTN 1 11/07/2022 Food insecurity 08/14/2023 Overview: Per [facility] Protocol Supervision of high risk in third trim guzman 08/08/2023 Last Assessment & Plan: growth and fluid appropriate for gestational age. All visualized anatomy appears normal. BLAKE (dyspnea on exertion) 06/26/2023 Bipolar disease during 06/09/2023 Overview: Reports bipolar. Denies SI/HI. Obtained counseling through [facility]. Last Assessment & Plan: No meds, no concerns reported today. 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 S/p valve repair and denies any further issues. Also reports history of [place]. She had a negative heart catheterization at [...] in January 2023. She reports that her winch stripper said she had PH, but that they [...] child born at 35 weeks. Was on [place] in previous pregnancies. Last Assessment & Plan: [...] patients who previously received 17P. Patient's primary ASSISTANT MANAGER AIRSIDE OPERATIONS can coordinate therapy if desired. For patients [...] then ERLTCS. Last in 2019 at [facility]. Desires repeat with tubal at [facility]. Last Assessment & Plan: Planning ERCD History of IN (myocardial infarction) 07/27/2018 Overview: Age 27, s/p [...] as of this encounter (statuses as of 10/27/2023) Resolved Problems Problem Noted Date Diagnosed Date Resolved Date Tricuspid valve replaced 01/12/2022 Unspecified asthma, uncomplicated 03/14/2021 01/12/2022 Depressive disorder 03/14/2021 01/13/20 22 delivery delivered 08/23/2020 10/06/2020 Drug use affecting 07/10/2020 10/06/2020 Overview: +marijuana Asthma during 05/04/2020/01/2021 Last Assessment & Plan: She reports well-controlled [...] in 10 months. Using medical marijuana through [facility] 01/14/2020 Angy Chase RN 01/14/2020 nutrition Due [...] Taken Date entered Entered by Date resolved [facility] breastpump form completed and faxed to [facility] for pt. 07/23/2020 Lisset [...] 10/06/2020 Overview: Delivered at 35w0d Previously on [place] Stopped at 36w Opioid dependence, uncomplicated 01/16/2019 [...] amphedamines, marijuana on tox screen 07/31/18 at [facility] Bipolar 1 disorder 07/12/2017 8 Attention [...] as of this encounter (statuses as of 10/27/2023) Immunizations Name Administration Dates Next Due COVID-19 [...] money to get more. Sometimes true 11/2022 [place] Depression Scale Answer Date Recorded [place] Depression Scale Total 11 05/17/2023 The thought [...] (15 years old or older) No 10/27/19 Cognitive Status Response Date of Assessm ent Because of a physical, menta l, or emotional condition, do you have serious difficulty concentrating, remembering, or making decisions? (5 years old or older) No 10/27/2016 documented as of this encounter Progress Notes * Keiry Loza, - 10/27/2023 4:42 PM EST MATERNAL MEDICINE VISIT Nancy Hernandez is at 31w5d who presents to [facility] for an ultrasound and follow-up of her high risk . REVIEW OF SYSTEMS: reports movement: yes PHYSICAL EXAM: Constitutional: pleasant, well-developed, well nourished General: pleasant, alert and oriented Neuro: mood and affect normal, alert and oriented, no acute distress She is being seen today by Maternal- Medicine for the following reasons: Problem List Items Addressed This Visit Endocrine/Metabolic Diet controlled gestational diabetes mellitus (GDM) in third trimester Patient encouraged to check BG 4x daily and report via Oscilla Power neto to [facility] ADAPT. Had issues with Current Health due to work schedule. Respiratory Maternal asthma complicating Circulatory PHT (pulmonary hypertension) (HCC) (Chronic) Most recent echo on 10/18/23 reported PAP 28 mmHg, previous echos reported PAP ~40mmHg Heart disease in mother affecting in first trimester Reports SOB/BLAKE is stable and has not worsened. 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 Moderate tricuspid regurgitation on echo. Patient aware that I am in the process of scheduling her [facility] sometime next week for delivery planning and will call her after to discuss recommendations. Digestive Chronic hepatitis C affecting antepartum care of mother (HCC) (Chronic) Other complicated by subutex maintenance, antepartum (HCC) (Chronic) Continue subutex. Reassured patient that growth and fluid appropriate for gestational age. Discussed possibility of ASD vs. Visualization of coronary sinus on ultrasound today. No concerns regarding cardiac anatomy on prior ultrasounds. Discussed limitation of ultrasound at this gestational age andif ASD present is small and would not anticipate it to cause issues with delivery or in the period. Will reassess at the next visit and if concern remains, then will recommend echoto better assess. Bipolar disease during (HCC) (Chronic) H/O tricuspid valve repair History of pulmonary embolism Continue ppx lovenox History of section complicating Planning ERCD History of endocarditis Anxiety during - Primary History of delivery Supervision of high risk in third trimester We reviewed today's ultrasound findings. (For full report, please refer to ultrasound report provided separately). Ms. Hernandez's questions were answered to her satisfaction. RECOMMENDATIONS: Recommend follow up ultrasound with MFM in 4 weeks for growth. Thank you for allowing us to participate in the care of this patient. Please call with any questions. Keiry Loza DO 10/27/2023 4:42 PM I have discussed the patient's management with the medical trainee and agree with the note. Please refer to the documented findings and plan of care. This patient's visit today consisted of an evaluation. I was present and confirmed the findings of the history and exam. Cristino Garcia DO documented in this encounter Miscellaneous Notes * Assessment & Plan Note - Keiry Loza DO - 10/27/2023 4:44 PM ESTAssociated Problem(s): complicated by subutex maintenance, antepartum (HCC) Continue subutex. Reassured patient that growth and fluid appropriate for gestational age. Discussed possibility of ASD vs. Visualization of coronary sinus on ultrasound today. No concerns regarding cardiac anatomy on prior ultrasounds. Discussed limitation of ultrasound at this gestational age andif ASD present is small and would not anticipate it to cause issues with delivery or in the period. Will reassess at the next visit and if concern remains, then will recommend echoto better assess. * Assessment & Plan Note - Keiry Loza DO - 10/27/2023 4:41 PM ESTAssociated Problem(s): Diet controlled gestational diabetes mellitus (GDM) in third trimester Patient encouraged to check BG 4x daily and report via Oscilla Power neto to [facility]. Had issues with Current Health due to work schedule. * Assessment & Plan Note - Keiry Loza DO - 10/27/2023 4:39 PM ESTAssociated Problem(s): PHT (pulmonary hypertension) (HCC) Most recent echo on 10/18/23 reported PAP 28 mmHg, previous echos reported PAP ~40mmHg * Assessment & Plan Note - Keiry Loza DO - 10/27/2023 4:39 PM ESTAssociated Problem(s): Heart disease in mother affecting in first trimester Reports SOB/BLAKE is stable and has not worsened. 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 Moderate tricuspid regurgitation on echo. Patient aware that I am in the process of scheduling her [facility] sometime next week for delivery planning and will call her after to discuss recommendations. * Assessment & Plan Note - Keiry Loza DO - 10/27/2023 4:37 PM ESTAssociated Problem(s): History of section complicating Planning ERCD * Assessment & Plan Note - Keiry Loza DO - 10/27/2023 4:37 PM ESTAssociated Problem(s): History of pulmonary embolism Continue ppx lovenox documented in this encounter Plan of Treatment Upcoming Encounters Date Type Department Care Team (Late st Contact Info) Description 11/02/2023 11:30 AM EST Office Visit Gynecology/Obstetrics [facility] [address] [place] [address] Shantelle Richmond CRNP [address] [place] [address] 11/06/2023 5:10 PM EST [facility] [address] [facility] [place] [address] [facility] [address] [facility], [place] [address] 11/13/2023 9:00 AM EST Office Visit Gynecology/Obstetrics [facility] [address] [place] [address] Marcellus Lira MD [address] [place] [address] 11/14/2023 3:30 PM EST Telemedicine [facility] [address] [place] [address] Kassi Cole RDN [address] [place] [address] 11/15/2023 9:00 AM EST Office Visit Gynecology/Obstetrics [facility] [address] [place] [address] Marcellus Lira MD [address] [place] [address] 11/28/2023 9:00 AM EST Office Visit Gynecology/Obstetrics [facility] [address] [place] [address] Marcellus Lira MD [address] [place] [address] 12/06/2023 2:00 PM EST Office Visit Gynecology/Obstetrics [facility] [address] [place] [address] Shantelle Richmond CRNP [address] [place] [address] 12/11/2023 9:00 AM EDT Office Visit Gynecology/Obstetrics [facility] [address] [place] [address] Marcellus Lira MD [address] [place] [address] 12/21/2023 11:30 AM EDT Office Visit Gynecology/Obstetrics [facility] [address] [place] [address] Shantelle Richmond CRNP [address] [place] [address] 02/22/2024 10:45 AM EDT Office Visit Cardiology [place] [address] [place] [address] Summer Cartagena CRNP [address] [place] [id number] Health Maintenance Due Date Last Done Comments [...] this encounter Medical Devices Implanted Type Area Labor Service Representative Device Identifier Shelf Expiration Date Model / Serial / Lot Ring Triad [id number] - [id number] Implanted:Qty: 1 on 08/09/2016 by Suha Harding MD at [place] [facility] N/A: Heart [employer] 08/31/2019 [id number] / [id number] / [id number] documented as of this encounter Visit Diagnoses Diagnosis Anxiety during - Primary Bipolar disease during in third trimester (HCC) Chronic hepatitis C affecting antepartum care of mother (HCC) Other maternal viral disease, antepartum Diet controlled gestational diabetes mellitus (GDM) in third trimester H/O tricuspid valve repair Personal history of surgery to heart and great vessels, presenting hazards to health Heart disease in mother affecting in first trimester History of section complicating Previous delivery, unspecified as to episode of care or not applicable History of endocarditis Personal history of other diseases of circulatory system History of delivery History of pulmonary embolism Personal history of pulmonary embolism Maternal asthma complicating Other current maternal conditions classifiable elsewhere, complicating , childbirth, or the puerperium, unspecified as to episode of care PHT (pulmonary hypertension) (HCC) Other chronic pulmonary heart diseases complicated by subutex maintenance, antepartum (HCC) Supervision of high risk in third trimester Unspecified high-risk documented in this encounter Advance Directives Latest [...]
--- OUTSIDE RECORDS SUMMARY | 2023-11-08 22:12 | External Medical Summary | Summary of Care ---
Author Name Unknown Organization [facility] Address [address] [place] [address] Phone [phone] Care Team Providers Care Provider Relations Rep Name Role Phone Unavailable Primary Care Provider Unavailabl e Encounter Details Date Type Department Care Team (Late st Contact Info) Description 10/31/2023 Telephone Labor Relations Director Obstetrics Maternal Medicine, [place] [address], [place] [id number] [place], Nurse Labor Relations Director [facility] [address] [place], [place] [phone] Allergies Active Allergy Reactions Criticality Noted Date Comments Sulfamethoxazole-Trimetho prim Nausea/vomiting Medium 01/19/2018 Nausea when taken with keflex Doxycycline Nausea/vomiting Medium 09/10/2018 Cephalexin Nausea/vomiting Medium 01/19/2018 Nausea when taken with bactrim documented as of this encounter (statuses as of 10/31/2023) Medications Medication Sig Dispensed Refills Start Date [...] Active Additional Information Patient taking differently: 2 [place] Nasal DAILY PRN, Reported on 11/04/2022 Buprenorphine [...] daily while 1 Each 0 10/06/2023 Active [facility] [employer] Flex System w/Device Kit Use to test blood sugars 4 times daily (fasting, 1 hour after breakfast, lunch, and dinner) 1 Kit 0 10/11/2023 Active [facility] In Vitro Strip (Glucose Blood) Use to test blood sugars 4 times daily (fasting, 1 hour after breakfast, lunch, and dinner) 125 Strip 6 10/11/2023 Active [employer] Lancets 30G Use to test blood sugars [...] 2.5 mgIndications:BLAKE (dyspnea on exertion),PHT (pulmonary hypertension) ([facility]),Mild persistent asthma with exacerbation 2.5 mg NEBULIZER Q4H PRN 09/01/2023 Active documented as of this encounter (statuses as of 10/31/2023) Active Problems Problem Noted Date Diagnosed Date [...] 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 Advised patient to send us readings via the chat message --KW 10/31/23-elevated sugars; schedule for adapt Last Assessment & Plan: Patient encouraged to check BG 4x daily and report via Better[employer] neto to [facility] ADAPT. Had issues with [...] Reports bipolar. Denies SI/HI. Obtained counseling through [facility]. Last Assessment & Plan: No meds, no concerns reported today. 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 S/p valve repair and denies any further issues. Also reports history of HI. She had a negative heart catheterization at [...] am in the process of scheduling her [facility] [place] sometime next week for delivery planning and [...] in January 2023. She reports that her varnish filterer said she had PH, but that they [...] patients who previously received 17P. Patient's primary SLOT MACHINE KEY PERSON can coordinate therapy if desired. For patients [...] Assessment & Plan: Planning ERCD History of HI (myocardial infarction) 07/27/2018 Overview: Age 27, s/p [...] as of this encounter (statuses as of 10/31/2023) Resolved Problems Problem Noted Date Diagnosed Date [...] in 10 months. Using medical marijuana through [employer] [facility] 01/14/2020 Angy Chase RN 01/14/2020 nutrition [...] Taken Date entered Entered by Date resolved [facility] breastpump form completed and faxed to [facility] for pt. 07/23/2020 Lisset Gonzalez [...] 10/06/2020 Overview: Delivered at 35w0d Previously on [place] Stopped at 36w Opioid dependence, uncomplicated 01/16/2019 [...] amphedamines, marijuana on tox screen 07/31/18 at [facility] ED Bipolar 1 disorder 07/12/2017 [...] as of this encounter (statuses as of 10/31/2023) Immunizations Name Administration Dates Next Due COVID-19 [...] money to get more. Sometimes true 11/2022 [place] Depression Scale Answer Date Recorded [place] Depression Scale Total 11 05/17/2023 The thought [...] encounter Miscellaneous Notes * Telephone Encounter - Soco Villalba OSA - 10/31/2023 9:38 AM EST Phone call to patient. Left message on Yelago's voice mail. Encouraged patient to return call to [facility] to assist with scheduling. Also sent [employer] message. * Telephone Encounter - Soco Villalba OSA - 10/31/2023 9:38 AM EST ----- Message from Gisselle Inman LPN sent at 10/31/2023 8:22 AM EST ----- Regarding: adapt Please schedule for adapt follow up documented in this encounter Plan of Treatment Upcoming Encounters Date Type Department Care Team (Late st Contact Info) Description 11/02/2023 11:30 AM EST Office Visit [facility] [address] [place] [address] [place], NICKOLAS Mattson [address] [place] [address] 11/06/2023 5:10 PM EST Anticoagulation Pharmacy, [place] [address] [facility] [address] [place], [facility] [address] [facility] [address] 11/13/2023 9:00 AM EST Office Visit Gynecology/Obstetrics [facility] Nogue[facility] [address] [place] [address] Marcellus Lira MD [address] [place] [address] 11/14/2023 3:30 PM EST Telemedicine Nutrition, [facility] Nogue[facility]as [address] [place] [address] Kassi Cole, GERALD [address] [place] [address] 11/15/2023 9:00 AM EST Office Visit Gynecology/Obstetrics [facility] Ennis [address] [place] [address] Marcellus Lira MD [address] [place] [address] 11/24/2023 3:30 PM EST Office Visit Labor Relations Director Obstetrics Maternal Medicine, [place] [address] [place] [address] Cristino Garcia, [address] [place] [address] 11/24/2023 3:30 PM EST [facility] [place] [address] [place] [address] 11/28/2023 9:00 AM EST Office Visit Gynecology/Obstetrics [facility] [address] [place] [address] Marcellus Lira MD [address] [place] [address] 12/06/2023 2:00 PM EST Office Visit Gynecology/Obstetrics [facility] Nogueiras [address] [place] [address] Shantelle Richmond CRNP [address] [place] [address] 12/11/2023 9:00 AM EDT Office Visit [facility] [address] [place] [address] Marcellus Lira MD [address] [place] [address] 12/21/2023 11:30 AM EDT Office Visit [facility] [address] [facility] [place] [address] Shantelle Richmond CRNP [address] [place] [address] 02/22/2024 10:45 AM EDT Office Visit Cardiology [facility] [address], [place] [phone] Summer Cartagena CRNP [address] [place] [phone] Health Maintenance Due Date Last Done Comments Pneumococcal Vaccine: Pediatrics (0 to 5 Years) and At-Risk Patients (6 to 64 Years) (2 - PCV) 10/01/2020 10/01/2019, 02/11/2014 COVID-19 Vaccine (3 2022-24 season) 2023 03/12/2022, 02/10/2022 Depression Screening [...] this encounter Medical Devices Implanted Type Area Supervisor Mold Construction Device Identifier Shelf Expiration Date Model / Serial / Lot Ring Triad [id number] - [id number] Implanted:Qty: 1 on 08/09/2016 by Suha Harding MD at [place] [facility] N/A: Heart [employer] 08/31/2019 [id number] / [id number] / [id number] documented as of this encounter Advance Directives [...]
--- OUTSIDE RECORDS SUMMARY | 2023-11-08 22:12 | External Medical Summary | Summary of Care ---
Author Name Unknown Organization [facility] Address [address] [place] [address] Phone [phone] Care Team Providers Care Bakery Worker Name Role Phone Unavailable Primary Care Provider Unavailabl e Reason for Referral * Precert (Within 10 days (routine)) - Closed Specialty Diagnoses / Procedures Referred By Contac t Referred To Contact Cardiac Studies Diagnoses S/P TVR (tricuspid valve repair) Pulmonary HTN (HCC) Procedures ECHO, COMPLETE (2D), TRANS-THORACIC Summer Cartagena CRNP [address] [place] [address] Referral ID Status Reason Start Date Expiration Date V isits Requested Visits Authorized [id number] Closed Precert 09/13/2023 11/04/2023 999 1 Reason for Visit * Precert (Within 10 days (routine)) - Closed Specialty Diagnoses / Procedures Referred By Contac t Referred To Contact Cardiac Studies Diagnoses S/P TVR (tricuspid valve repair) Pulmonary HTN (HCC) Procedures ECHO, COMPLETE (2D), TRANS-THORACIC Summer Cartagena CRNP [address] [place] [address] Referral ID Status Reason Start Date Expiration Date V isits Requested Visits Authorized [id number] Closed Precert 09/13/2023 11/04/2023 999 1 Encounter Details Date Type Department Care Team (Latest Contact Info) Description 10/18/2023 1:11 PM EST - 10/18/2023 11:59 PM EST Hospital Encounter Cardiac Studies [facility] [place] [address] Discharge Disposition: Home - Self Care Allergies Active Allergy Reactions Criticality Noted Date Comments Sulfamethoxazole-Trimetho prim Nausea/vomiting Medium 01/19/2018 Nausea when taken with keflex Doxycycline Nausea/vomiting Medium 09/10/2018 Cephalexin Nausea/vomiting Medium 01/19/2018 Nausea when taken with bactrim documented as of this encounter (statuses as of 10/19/2023) Medications Medication Sig Dispensed Refills Start Date [...] Active Additional Information Patient taking differently: 2 [place] Nasal DAILY PRN, Reported on 11/04/2022 Buprenorphine [...] daily while 1 Each 0 10/06/2023 Active [employer] Flex System w/Device Kit Use to test blood sugars 4 times daily (fasting, 1 hour after breakfast, lunch, and dinner) 1 Kit 0 10/11/2023 Active [employer] In Vitro Strip (Glucose Blood) Use to test blood sugars 4 times daily (fasting, 1 hour after breakfast, lunch, and dinner) 125 Strip 6 10/11/2023 Active [employer] Lancets 30G Use to test blood [...] as of this encounter (statuses as of 10/19/2023) Active Problems Problem Noted Date Diagnosed Date Diet controlled gestational diabetes mellitus (GDM) in third trimester 10/18/2023 Overview: Diagnosed at 29 weeks Nutrition consult ordered Lab Results Component Value Date/Time 50-G GESTATIONAL [...] A1C - [facility] 5.1 08/07/2021 08:16 AM Blood pressure elevated without history of HTN 1 11/07/2022 Food insecurity 08/14/2023 Overview: Per [facility] Protocol Supervision of high risk in [facility] 08/08/2023 Last Assessment & Plan: growth and [...] secondary to IVDA. Last Assessment & Plan: in women with a history of cardiac disease is often well-tolerated, though this varies based on the particular cardiac process, the patient's functional status, and the expected ability of the patient to adapt to the physiologic changes of . In some women, cardiac procedures prior to may optimize cardiac status and allow for consideration of . In women with a history of cardiac disease considering , we recommend cardiology referral for an evaluation of their current status, updated imaging, and a discussion of prognostic factors. In general, is not advised in women with NYHA class III or IV status or women with pulmonary hypertension, severe ventricular dysfunction (left ventricular ejection fraction less than 40%), aortic root dilation over 4 cm, and severe left heart obstruction. is generally not recommended in women with a history of ischemic heart disease, though women with normal ventricular function and normal coronary arteries may be a possible exception. Vaginal delivery is typically encouraged in women with cardiac disease. delivery is recommended in women with a dilated aortic root, severe congestive heart failure, a recent myocardial infarction, severe aortic stenosis, in women who need emergent valvular surgery after delivery, and in a [id number] basis after evaluating the particular disease process and expected response to delivery. Chronic hepatitis C affecting antepartum care of [...] in January 2023. She reports that her slot tag inserter said she had PH, but that they were not concerned about it at this time. Last Assessment & Plan: She presents for follow-up of growth. She has a history of pulmonary HTN, Subutex use, HCV, a history of PE now treated with Lovenox, asthma, and a prior delivery. She has been following with cardiology and pulmonology. I reviewed her most recent echo on file from [facility] (performed in 07/2023), which demonstrated overall stable findings. She anticipates a follow-up echo soon. She reports difficulty lately with frequent nausea and vomiting for about the past 9 days. Sometimes she will wake up and have a racing heartbeat then need to vomit, but other times this will happen while she is at work and not laying down. She has tried several medications without success and states that she has been evaluated in the hospital several times without answers being found. I do not have access to recent hospital records or labs. I recommended follow-up with her OB providers and suggested consideration of a GI consultation, which she does not feel would be helpful. Today's ultrasound notes the following: The estimated weight is appropriate for gestational age in the 76th percentile. The visualized anatomy is unremarkable in appearance. The DAVON is normal. A BPP is 8/8. A BPP was performed as she reported some decrease in movement to the family and divorce legal assistant. complicated by subutex maintenance, an tepartum 05/18/2023 Overview: Following with [facility]. [place]. Taking 16 mg daily Subutex. Is interested in decreasing her dosage and possibly stopping it in . Has been working with her prescriber to accomplish this. Last Assessment & Plan: I reviewed the ultrasound with her. The overall estimated weight is consistent with the 76 percentile for the gestational age and the anatomy that was visualized appears unremarkable. The amniotic fluid volume is normal at 19 cm and the fetus is in the vertex presentation. History of transfusion 05/18/2023 Overview: Pt reports [...] child born at 35 weeks. Was on [facility] in previous pregnancies. Last Assessment & Plan: [...] patients who previously received 17P. Patient's primary FIRE INVESTIGATION MANAGER can coordinate therapy if desired. For patients [...] or questions 09/18/2023 Mercedez Valente RN 09/18/2023 Amenorrhea, secondary 04/14/2023 Preoperative general physical examination [...] breech then ERLTCS. Last in 2019 at [facility]. Desires repeat with tubal at [facility]. Last Assessment & Plan: CONSIDERATIONS: Reviewed that patients with a history of a previous section are at increased risk in subsequent pregnancies for abnormal placentation (such as previa, acreta, increta, percreta), uterine rupture, abdominal adhesions (which increases the associated surgical risks of injury to adjacent organs, length of procedure, and increased blood loss), and other incision-related complications (such as hernia, rectal muscle diastasis). These risks increase linearly with the number of previous sections performed. carries a lower risk of hemorrhage and infection than delivery. It also generally involves a shorter hospital admission as well as a less painful and shorter recovery than delivery. The risks of uterine rupture are increased for at 0.2 to 1.5% with prior low transverse uterine incision and up to 10% with prior classical incision. In the event of uterine rupture there is a risk of maternal injury that may require a blood transfusion, hysterectomy, damage to nearby organs and even maternal . There is also a 10 to 25% risk of significant adverse sequelae which includes or permanent injury in 10/999 's. The chances of successful increases with any prior successful deliveries. RECOMMENDATIONS: Routine repeat section is recommended to be scheduled between 39-40 weeks gestation. If patient has a previous classical uterine incision, then recommend proceeding with scheduled repeat delivery at 36-37 weeks without amniocentesis per [employer]. Every effort should be made by patient s primary OB provider to obtain prior operative reports. As per [employer]'s 2010 practice bulletin (reaffirmed 2015) regarding offering of trial of labor after delivery, the risks and benefits should be discussed between the patient and her primary OB provider and ultimately agreed upon between these parties and documented as such. Any attempt at should be undertaken at a facility capable of emergent delivery. The following factors are NOT contraindications to offering a trial of labor after delivery: a. Two prior deliveries b. Suspected macrosomia c. Gestation beyond 40 weeks d. History of previous low vertical uterine incision e. Twin gestation (if only one prior ) f. One delivery with an unknown uterine scar type (unless there is a high clinical suspicion of a previous classical uterine incision) Induction of labor for maternal or indications is an option for women undergoing Trial of Labor After . Misoprostol should not be used for cervical ripening or induction of labor. History of ND (myocardial infarction) 07/27/2018 Overview: Age 27, s/p drug withdraw. Normal heart cath. 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 Follows with anticoagulation clinic. Medical marijuana use 07/27/2018 Overview: Pt has [...] as of this encounter (statuses as of 10/19/2023) Resolved Problems Problem Noted Date Diagnosed Date [...] in 10 months. Using medical marijuana through [employer] [facility] 01/14/2020 Angy Chase RN 01/14/2020 nutrition [...] Taken Date entered Entered by Date resolved [facility] breastpump form completed and faxed to [facility] for pt. 07/23/2020 Lisset Gonzalez RN [...] amphedamines, marijuana on tox screen 07/31/18 at [facility] ED Bipolar 1 disorder [...] as of this encounter (statuses as of 10/19/2023) Immunizations Name Administration Dates Next Due COVID-19 [...] money to get more. Sometimes true 11/2022 [place] Depression Scale Answer Date Recorded [place] Depression Scale Total 11 05/17/2023 The thought [...] No 10/27/2016 documented as of this encounter Plan of Treatment Upcoming Encounters Date Type Department Care Team (Late st Contact Info) Description 10/20/2023 9:30 AM EST Office Visit Gynecology/Obstetrics [facility] [address] [place] [address] Sharron Robertson CRNP [address] [place] [address] 10/26/2023 10:15 AM EST Office Visit Cardiology [facility], [place] [address] [place] [address] Summer Cartagena CRNP [address] [place] [id number] 10/27/2023 3:00 PM EST Office Visit Notereader Obstetrics Maternal Medicine, [place] [address] [place] [address] Cristino Garcia DO [address] [place] [address] 10/27/2023 3:00 PM EST Imaging Radiology [facility] [place], [place] [address] [place] [address] 11/02/2023 11:30 AM EST Office Visit Gynecology/Obstetrics [facility] [address] [facility] [place] [address] Shantelle Richmond CRNP [address] [place] [address] 11/06/2023 5:10 PM EST Anticoagulation Pharmacy, [place] [address] [place] [address] [facility] [address] [place] [address] 11/13/2023 9:00 AM EST Office Visit Gynecology/Obstetrics [facility] [address] [facility] [address] Marcellus Lira MD [address] [place] [address] 11/14/2023 3:30 PM EST Telemedicine Nutrition, [facility] [address] [place] [address] Kassi Cole, RDN [address] [place] [address] 11/15/2023 9:00 AM EST Office Visit Gynecology/Obstetrics [facility] [address] [place] [address] Marcellus Lira MD [address] [place] [address] 11/28/2023 9:00 AM EST Office Visit Gynecology/Obstetrics [facility] [address] [place] [address] Marcellus Lira MD [address] [place] [address] 12/06/2023 2:00 PM EST Office [facility] [address] [place] [address] Shantelle Richmond CRNP [address] [place] [address] 12/11/2023 9:00 AM EDT Office Visit Gynecology/Obstetrics [facility] [address] [place] [address] Marcellus Lira MD [address] [place] [address] 12/21/2023 11:30 AM EDT Office Visit Gynecology/Obstetrics [facility] [address] [place] [address] Shantelle Richmond CRNP [address] [place] [address] Health Maintenance Due Date Last Done Comments [...] this encounter Medical Devices Implanted Type Area Washateria Attendant Device Identifier Shelf Expiration Date Model / Serial / Lot Ring Triad [id number] - [id number] Implanted:Qty: 1 on 08/09/2016 by Shua Harding MD at [place] [facility] N/A: Heart [employer] 08/31/2019 [id number] / [id number] / [id number] documented as of this encounter Procedures Procedure Name Priority Date/Time Associated Diagnosis Comments ECHO, COMPLETE (2D), TRANS-THORACIC Routine 10/18/2023 1:48 PM EST S/P TVR (tricuspid valve repair) Pulmonary HTN (HCC) documented in this encounter Results * ECHO, COMPLETE (2D), TRANS-THORACIC (10/18/2023 1:48 PM EST) LEFT VENTRICULAR EJECTION FRACTION 60 % [facility] CARDIOLOGY 10/18/2023 1:12 PM EST Summer OLMOS [facility]ARDIOLOG[facility] C[facility] documented in this encounter Visit Diagnoses Diagnosis S/P TVR (tricuspid valve repair) Other postprocedural status Pulmonary HTN (HCC) Other chronic pulmonary heart diseases documented in this encounter Advance Directives Latest [...]
--- OUTSIDE RECORDS SUMMARY | 2023-11-08 22:12 | External Medical Summary | Summary of Care ---
Author Name Unknown Organization [facility] Address [address] [place] [address] Phone [phone] Care Team Providers Care Director Of Safety And Security Name Role Phone Unavailable Primary Care Provider Unavailabl e Reason for Visit * Reason Comments eRx-Medication Refill Encounter Details Date Type Department Care Team (Late st Contact Info) Description 10/30/2023 Refill Gynecology/Obstetrics [facility] [address] [place] [address] Leatha Degroot PA-C [address] [place] [address] Genital herpes simplex, unspecified site Allergies Active Allergy Reactions Criticality Noted Date Comments Sulfamethoxazole-Trimetho prim Nausea/vomiting Medium 01/19/2018 Nausea when taken with keflex Doxycycline Nausea/vomiting Medium 09/10/2018 Cephalexin Nausea/vomiting Medium 01/19/2018 Nausea when taken with bactrim documented as of this encounter (statuses as of 10/30/2023) Medications Medication Sig Dispensed Refills Start Date End Date Status albuterol sulfate (PROVENTIL) (2.5 MG/3ML) 0.083% nebulizer solutionIndication s:Bronchitis, complicated Inhale 1 Vial via nebulizer every 4 hours as needed for Wheezing. 120 Vial 11 8 Active Nebulizers (NEBULIZER COMPRESSOR) MISCIndications:Br onchitis, complicated Inhale via nebulizer. Use as directed. 1 Each 1 8 Active albuterol HFA (VENTOLIN HFA) 108 (90 BASE) MCG/ACT inhalerIndications :Severe persistent asthma with acute exacerbation Inhale 2 Puffs by mouth every 4 hours as needed for Shortness of Breath. 1 Inhaler 1 9 Active Fluticasone Propionate 50 MCG/ACT Nasal Suspension (Flonase)Indicatio ns:Other non-recurrent acute nonsuppurative otitis media of left ear,Post-nasal drip SPRAY 2 SPRAYS INTO EACH NOSTRIL EVERY DAY 48 mL 3 3 Active Additional Information Patient taking differently: 2 [place] Nasal DAILY PRN, Reported on 11/04/2022 Buprenorphine [...] weeks gestation. 12 mL 5 3 Active Ondansetron 4 MG Oral Tablet Disintegrating (Zofran) Place 1 Tablet on tongue every 8 hours as needed for Nausea. dissolve on tongue. 20 Tablet 0 4 Active Promethazine HCl 25 MG Rectal Suppository (Phenergan)Indicat ions:Nausea and vomiting during Administer 1 Suppository into the rectum every 6 hours as needed for Nausea. 20 Each 0 4 Active Omeprazole 20 MG Oral Capsule Delayed Release (PriLOSEC)Indicati ons:Nausea and vomiting during Take 1 Capsule by mouth in the morning. Take 30 minutes before eating.. 30 Capsule 1 4 Active Breast Pump Pump daily while 1 Each 0 4 Active Two Tap Flex System w/Device Kit Use to test blood sugars 4 times daily (fasting, 1 hour after breakfast, lunch, and dinner) 1 Kit 0 4 Active Two Tap In Vitro Strip (Glucose Blood) Use to [...] THE MORNING 30 Tablet 0 4 Active valACYclovir HCl 500 MG Oral Tablet (Valtrex)Indicatio ns:Genital herpes simplex, unspecified site Take 1 Tablet by mouth in the morning. 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 Advised patient to send us readings via the chat message --KW Last Assessment & Plan: Patient encouraged to check BG 4x daily and report via Light Chaser Animation neto to MFM ADAPT. Had issues with Current Health due to work schedule. Blood pressure elevated without history of HTN 1 11/07/2022 Food insecurity 08/14/2023 Overview: Per [facility] Protocol Supervision of high risk [...] any further issues. Also reports history of MT. She had a negative heart catheterization at [...] in January 2023. She reports that her buggy driver said she had PH, but that they [...] also referred to Psychiatry and counseling with MAMIE. Last Assessment & Plan: ANXIETY AND DEPRESSION [...] child born at 35 weeks. Was on [place] in previous pregnancies. Last Assessment & Plan: [...] patients who previously received 17P. Patient's primary CLINICAL PSYCHOLOGIST can coordinate therapy if desired. For patients [...] then ERLTCS. Last in [address] [facility]. Desires repeat with tubal at [facility]. Last Assessment & Plan: Planning ERCD History of MT (myocardial infarction) 07/27/2018 Overview: Age 27, s/p [...] as of this encounter (statuses as of 10/30/2023) Resolved Problems Problem Noted Date Diagnosed Date [...] in 10 months. Using medical marijuana through [facility] 01/14/2020 Angy Chase RN 01/14/2020 nutrition [...] Taken Date entered Entered by Date resolved [facility] breastpump form completed and faxed to [facility] for pt. 07/23/2020 Lisset Gonzalez RN [...] 10/06/2020 Overview: Delivered at 35w0d Previously on [place] Stopped at 36w Opioid dependence, uncomplicated 01/16/2019 [...] amphedamines, marijuana on tox screen 07/31/18 at [facility] ED Bipolar 1 disorder [...] as of this encounter (statuses as of 10/30/2023) Immunizations Name Administration Dates Next Due COVID-19 [...] money to get more. Sometimes true 11/2022 [place] Depression Scale Answer Date Recorded [place] Depression Scale Total 11 05/17/2023 The thought [...] Telephone Encounter - Leatha Degroot PA-C - 10/30/2023 12:26 PM ESTSigned Prescriptions: Disp Refills valACYclovir HCl 500 MG Oral Tablet (Valtr*30 Tab*0 Sig: TAKE 1 TABLET BY MOUTH EVERY DAY IN THE MORNINGAuthorizing Provider: LEATHA DEGROOT * Telephone Encounter - Dayana Dougherty CCMA - 10/30/2023 9:13 AM ESTPending Prescriptions: Disp Refills valACYclovir HCl 500 MG Oral Tablet [Pharm*30 Tab*3 Sig: TAKE 1TABLET BY MOUTH EVERY DAY IN THE MORNING documented in this encounter Plan of Treatment Upcoming Encounters Date Type Department Care Team (Late st Contact Info) Description 11/02/2023 11:30 AM EST Office Visit Gynecology/Obstetrics [facility] [address] [place], [place] [address] Shantelle Richmond CRNP [address] [place], [place] [address] 11/06/2023 5:10 PM EST [facility] [address] [facility] [place] [address] [facility] [address] [facility] [place] [address] 11/13/2023 9:00 AM EST Office Visit Gynecology/Obstetrics [facility] [address] [place], [place] [address] Marcellus Lira MD [address] [place] [address] 11/14/2023 3:30 PM EST [facility] [address] [place] [address] Kassi Cole, GERALD [address] [place] [address] 11/15/2023 9:00 AM EST Office Visit Gynecology/Obstetrics [facility] [address] [place] [address] Marcellus Lira MD [address] [place] [address] 11/24/2023 3:30 PM EST Office Visit [facility] Obst[facility]s [facility], [place] [address] [place], [place] [id number] Cristino Garcia DO [address] [place], [place] [id number] 11/24/2023 3:30 PM EST Imaging Radiology [facility] [place] [address] [facility] [place] [address] 11/28/2023 9:00 AM EST Office Visit Gynecology/Obstetrics [facility] [address] [place] [address] Marcellus Lira MD [address] [place] [address] 12/06/2023 2:00 PM EST Office Visit Gynecology/Obstetrics [facility] [address] [place] [address] Shantelle Richmond CRNP [address] [place] [address] 12/11/2023 9:00 AM EDT Office Visit Gynecology/Obstetrics [facility] [address] [place] [address] Marcellus Lira MD [address] [place] [address] 12/21/2023 11:30 AM EDT Office Visit Gynecology/Obstetrics [facility] [address] [place] [address] Shantelle Richmond CRNP [address] [place] [address] 02/22/2024 10:45 AM EDT Office Visit Cardiology [facility], [place] [address] [facility] [place], [place] [address] Summer Cartagena CRNP [address] [facility] [place] [phone] Health Maintenance Due Date Last Done Comments [...] this encounter Medical Devices Implanted Type Area Continuous Improvement Coach Device Identifier Shelf Expiration Date Model / Serial / Lot Ring Triad [id number] - [id number] Implanted:Qty: 1 on 08/09/2016 by Suha Harding MD at OR [facility] N/A: Heart [employer] 08/31/2019 [id number] / [id number] / [id number] documented as of this encounter Visit Diagnoses Diagnosis Genital herpes simplex, unspecified site documented in this encounter Advance Directives Latest [...]
--- OUTSIDE RECORDS SUMMARY | 2023-11-08 22:12 | External Medical Summary | Summary of Care ---
Author Name Unknown Organization [facility] Address [address] [place] [address] Phone [phone] Care Team Providers Care Nurse Charge Rn Name Role Phone Unavailable Primary Care Provider Unavailabl e Reason for Visit * Reason Comments Follow Up Encounter Details Date Type Department Care Team (Late st Contact Info) Description 10/27/2023 10:20 AM EST [facility] [address] [place], [place] [id number] Justino Rey MD [address] [place] [address] PHT (pulmonary hypertension) ([facility])*; BLAKE (dyspnea on exertion); Gastro-esophageal reflux disease without esophagitis; Mild persistent asthma with exacerbation Allergies Active Allergy Reactions Criticality Noted Date [...] Active Additional Information Patient taking differently: 2 [place] Nasal DAILY PRN, Reported on 11/04/2022 Buprenorphine [...] daily while 1 Each 0 10/06/2023 Active Radio Rebel Flex System w/Device Kit Use to test blood sugars 4 times daily (fasting, 1 hour after breakfast, lunch, and dinner) 1 Kit 0 10/11/2023 Active [employer] Verio In Vitro Strip (Glucose Blood) Use to test blood sugars 4 times daily (fasting, 1 hour after breakfast, lunch, and dinner) 125 Strip 6 10/11/2023 Active [employer] Delica Lancets 30G Use to test blood [...] 88 10/11/2023 07:45 AM HEMOGLOBIN A1C - FANNYER 5.1 08/07/2021 08:16 AM She reports her [...] 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 Advised patient to send us readings via the chat message --KW Last Assessment & Plan: CONSIDERATIONS: Reviewed etiology and risks associated with gestational diabetes mellitus (GDM), including risks to , fetus, and maternal progression to Type 2 DM. Instructed on proper use of glucometer; supplies ordered, if indicated. Advised that life-long screening for diabetes is recommended every 1-3 years. RECOMMENDATIONS: Recommend monitoring blood sugars with daily fasting blood sugar (maintained at less than or equal to 95) and 1 hour postprandial measurements (maintained at less than or equal to 140). Medications should be adjusted to maintain these target values. Report levels to MFM (Maternal- Medicine) weekly. Recommend nutrition consult with RDN (Registered Dietitian Examining Chair Assembler). Lifestyle changes are also indicated including optimizing gestational weight gain and physical activity of 30 minutes per day, if not otherwise contraindicated in . Insulin is preferred if medications are indicated to optimize euglycemia. Metformin (preferred over glyburide) may also be used in some circumstances. Reviewed the risks and benefits of each. Recommend ultrasound, surveillance and delivery as follows: A1GDM, delivery should be accomplished by 41w0d. A2GDM, recommend growth assessment with MFM every 4 weeks, initiate surveillance at 32 weeks and continue until delivery at 39 weeks. Recommend intrapartum monitoring every 1-2 hours (A2GDM) or every 4 hours (A1GDM) and treat with insulin if indicated. Recommend 2-hour glucose tolerance testing with 75-gram glucose load 6-8 weeks . Blood pressure elevated without history of HTN 1 11/07/2022 Food insecurity 08/14/2023 Overview: Per [facility] Protocol Supervision of high risk in third trim guzman 08/08/2023 Last Assessment & Plan: growth and fluid appropriate for gestational age. All visualized anatomy appears normal. BLAKE (dyspnea on exertion) 06/26/2023 Bipolar disease during 06/09/2023 Overview: Reports bipolar. Denies SI/HI. Obtained counseling through [facility]. Last Assessment & Plan: No meds, [...] valvular surgery after delivery, and in a [id number] basis after evaluating the particular disease process [...] in January 2023. She reports that her airfield operations specialist said she had PH, but that they [...] her most recent echo on file from [facility] (performed in 07/2023), which demonstrated overall [...] reported some decrease in movement to the audit analyst. complicated by subutex maintenance, an tepartum 05/18/2023 Overview: Following with Neil. Stable. Taking 16 mg daily Subutex. Is interested [...] child born at 35 weeks. Was on [place] in previous pregnancies. Last Assessment & Plan: [...] patients who previously received 17P. Patient's primary GREEN CHAIN MARKER can coordinate therapy if desired. For patients [...] clean since 2015 On subutex - Through neil 05/17/2023 Angy Chase RN 05/17/2023 Fatigue Take [...] breech then ERLTCS. Last in 2019 at [facility]. Desires repeat with tubal at [facility]. Last Assessment & Plan: CONSIDERATIONS: Reviewed that [...] delivery at 36-37 weeks without amniocentesis per [employer]. Every effort should be made by patient s primary OB provider to obtain prior operative reports. As per [employer]'s 2010 practice [...] ripening or induction of labor. History of AK (myocardial infarction) 07/27/2018 Overview: [...] in 10 months. Using medical marijuana through [employer] [facility] [facility] 01/14/2020 Angy Chase RN 01/14/2020 nutrition [...] Taken Date entered Entered by Date resolved [facility] breastpump form completed and faxed to [facility] for pt. 07/23/2020 Lisset Gonzalez RN [...] amphedamines, marijuana on tox screen 07/31/18 at [facility] ED Bipolar 1 disorder 07/12/2017 [...] money to get more. Sometimes true 11/2022 [place] Depression Scale Answer Date Recorded [place] Depression Scale Total 11 05/17/2023 The thought [...] as of this encounter Progress Notes * Justino Rey MD - 10/27/2023 10:20 AM EST Nancy Hernandez, , 33 year old female 10/27/2023 Visit date not found (in office), 09/01/2023 (telemedicine) Patient location: HOME. I was not in a hospital or clinic location. After connecting through televideo, patient was verified with two unique identifiers. Patient (or authorized legal insurance verification representative) was then informed that this was a Telemedicine visit and being conducted confidentially over secure lines. Methods to assure confidentiality were taken. Patient acknowledged consent and understanding of privacy and security of the Telemedicine visit. The patient agreed to participate. INTERVAL HISTORY 1. "I'm doing alright." is progressing well, w/o major comp. Breathing about the same, now 8th month , planned December 17 2. Resting dyspnea: no issues 3. BLAKE: room to room walking 4. Cough:min 5. Nocturnal Sx: no 6. Other respiratory symptoms: no wheezing, + dependent edema 7. Recent exacerbations: no 8. Interval ED or Hosp (summary notes reviewed): no 9. New med problems: no. GERD is better controlled 10. Weight: gained about 30# with this 11. Smoking: no 12: Exercise: yoga, treadmill in gym, 12-hour workshifts 13. Vaccinations: fluvax +; COVID Vax x 2 (Moderna), Pneumovax +23, Hep B vax Review of patient's allergies indicates: Allergen Reactions Bactrim [Sulfamethoxazole-Trimethoprim] Nausea/vomiting Nausea when taken with keflex Doxycycline Nausea/vomiting Keflex [Cephalexin] Nausea/vomiting Nausea when taken with bactrim Current Outpatient Medications Medication Sig Dispense Refill albuterol sulfate (PROVENTIL) (2.5 MG/3ML) 0.083% nebulizer solution no need 120 Vial 11 Nebulizers (NEBULIZER COMPRESSOR) MISC Inhale via nebulizer. Use as directed. 1 Each 1 albuterol HFA (VENTOLIN HFA) 108 (90 BASE) MCG/ACT inhaler Prn, occ need 1 Inhaler 1 Fluticasone Propionate 50 MCG/ACT Nasal Suspension (Flonase) No recent need 48 mL 3 Buprenorphine HCl 2 MG Sublingual Tablet Sublingual (Subutex) Place 1 Tablet under the tongue in the morning. Complete Oral Capsule Therapy Pack Take by mouth. Vitamin B-6 25 MG Oral Tablet Take by mouth. Enoxaparin Sodium 40 MG/0.4ML Injection Solution Prefilled Syringe (Lovenox) Inject 40 mg under theskin in the morning. Transition to heparin at 36 weeks gestation. 12 mL 5 valACYclovir HCl 500 MG Oral Tablet (Valtrex) Take 1 Tablet by mouth in the morning. 30 Tablet 3 Ondansetron 4 MG Oral Tablet Disintegrating (Zofran) Place 1 Tablet on tongue every 8 hours as needed for Nausea. dissolve on tongue. 20 Tablet 0 Promethazine HCl 25 MG Rectal Suppository (Phenergan) Administer 1 Suppository into the rectum every 6 hours as needed for Nausea. 20 Each 0 Omeprazole 20 MG Oral Capsule Delayed Release (PriLOSEC) Take 1 Capsule by mouth in the morning. Take 30 minutes before eating.. 30 Capsule 1 Breast Pump Pump daily while 1 Each 0 [employer] Verio Flex System w/Device Kit Use to test blood sugars 4 times daily (fasting, 1 hour after breakfast, lunch, and dinner) 1 Kit 0 OneTouch Verio In Vitro Strip (Glucose Blood) Use to test blood sugars 4 times daily (fasting, 1 hour after breakfast, lunch, and dinner) 125 Strip 6 [employer] Delica Lancets 30G Use to test blood sugars 4 times daily (fasting, 1 hour after breakfast, lunch, and dinner) 200 Each 6 (highlighted medications reviewed with patient) PHYSICAL APPEARANCE: She appeared well, much improved compared to past visits, interactive and alert. DATA: Latest Reference Range & Units 01/25/23 13:32 10/05/23 08:20 FEV1/FVC Actual Pre % 77 76 FVC Actual Pre L 3.71 3.29 FVC Actual Pre %Predict % 94 82 FEV1 Actual Pre L 2.84 2.49 FEV1 Actual Pre %Predict % 85 74 SPIROMETRY B/A BRONCHODILATOR Rpt Rpt FEV1/FVC Actual Post % 77 74 FVC Actual Post L 4.01 3.26 FVC Actual Post %Change % 7 0 FEV1 Actual Post L 3.10 2.39 FEV1 Actual Post %Change % 7 -2 Rpt: View report in Results Review for more information 6 minute walk test: 449 m walked, no significant desaturation. Assessment: Ms. Altamirano respiratory status seems to have improved, and she is doing relatively well with her . Pulmonary function testing showed some diminishing from past testing, but this was done during third trimester . Pulmonary Problem List: Pulmonary hypertension History of pulmonary embolism Past history of cigarette smoking Has history of pneumonia Asthma, mild persistent Other conditions that may impact pulmonary management: Second trimester Complex cardiac surgery Tricuspid valve repair Close PFO her delivery Recommendations & Plan: Continue albuterol if needed I asked her to apprise me of any change in her status prior to No change in her regimen for asthma, which is simply as needed albuterol at present I spent a total of 20-29 minutes (exact time 22 mins) on the date of service in preparation, delivery, and documentation of the care provided to Nancy Hernandez excluding any time spent in the performance of separately billed services. Justino Rey MD, Ph.D. Chair, Pulmonary/Critical Care Medicine PCP: None documented in this encounter Plan of Treatment Upcoming Encounters Date Type Department Care Team (Late st Contact Info) Description 10/27/2023 3:00 PM EST Office Visit Body Mechanic Apprentice Obstetrics [facility], [place] [address] [place] [address] Cristino Garcia, [address] [place] [address] 10/27/2023 3:00 PM EST Imaging [facility] [place] [address] [place] [address] 11/02/2023 11:30 AM EST Office Visit Gynecology/Obstetrics [facility] [address] [facility] [place] [address] Shantelle Richmond CRNP [address] [place] [address] 11/06/2023 5:10 PM EST [facility] [address] [place] [address] [facility] [address] [place] [address] 11/13/2023 9:00 AM EST Office Visit Gynecology/Obstetrics [facility] [address] [facility] [place] [address] Marcellus Lira MD [address] [place] [address] 11/14/2023 3:30 PM EST [facility] [address] [place] [address] Kassi Cole RDN [address] [place] [address] 11/15/2023 9:00 AM EST Office Visit Gynecology/[facility]stetrics [facility] [address] [place] [address] Marcellus Lira MD [address] [place] [address] 11/28/2023 9:00 AM EST Office Visit Gynecology/Obstetrics [facility] [address] [place] [address] Marcellus Lira MD [address] [place] [address] 12/06/2023 2:00 PM EST Office Visit Gynecology/Obstetrics [facility] [place] [address] [place] [address] Shantelle Richmond CRNP [address] [place] [address] 12/11/2023 9:00 AM EDT Office Visit Gynecology/Obstetrics [facility] [address] [place] [address] Marcellus Lira MD [address] [place] [address] 12/21/2023 11:30 AM EDT Office Visit Gynecology/Obstetrics [facility] [address] [place] [address] Shantelle Richmond CRNP [address] [place] [address] 02/22/2024 10:45 AM EDT Office Visit Cardiology [facility], [place] [address] [place] [address] Summer Cartagena CRNP [address] [facility] [id number] Health Maintenance Due Date Last Done Comments [...] this encounter Medical Devices Implanted Type Area Tunnel Worker Device Identifier Shelf Expiration Date Model / Serial / Lot Ring Triad [id number] - [id number] Implanted:Qty: 1 on 08/09/2016 by Suha Harding MD at [place] [facility] N/A: Heart [employer] 08/31/2019 [id number] / [id number] / [id number] documented as of this encounter Visit Diagnoses Diagnosis PHT (pulmonary hypertension) (HCC)- Primary Other chronic pulmonary heart diseases BLAKE (dyspnea on exertion) Other dyspnea and respiratory abnormality Gastro-esophageal reflux disease without esophagitis Esophageal reflux Mild persistent asthma with exacerbation Unspecified asthma, with exacerbation documented in this encounter Advance Directives Latest [...]
--- OUTSIDE RECORDS SUMMARY | 2023-11-08 22:12 | External Medical Summary | Summary of Care ---
Author Name Unknown Organization [facility] Address [address] [place] [address] Phone [phone] Care Team Providers Care Film Examiner Name Role Phone Unavailable Primary Care Provider Unavailabl e Reason for Visit * Reason Comments Return Visit Encounter Details Date Type Department Care Team (Late st Contact Info) Description 10/20/2023 9:30 AM EST Office Visit Gynecology/Obstetric s [facility] Ennis [address] [place] [address] Sharron Robertson CRNP [address] [place] [address] H/O tricuspid valve repair*; History of VA (myocardial infarction); History of pulmonary embolism; Medical [...] third trimester ([facility]); Supervision of high risk in third trimester; Diet controlled gestational diabetes mellitus (GDM) in third trimester Allergies Active Allergy Reactions Criticality Noted Date Comments Sulfamethoxazole-Trimetho prim Nausea/vomiting Medium 01/19/2018 Nausea when taken with keflex Doxycycline Nausea/vomiting Medium 09/10/2018 Cephalexin Nausea/vomiting Medium 01/19/2018 Nausea when taken with bactrim documented as of this encounter (statuses as of 10/20/2023) Medications Medication Sig Dispensed Refills Start Date [...] Active Additional Information Patient taking differently: 2 [place] Nasal DAILY PRN, Reported on 11/04/2022 Buprenorphine [...] daily while 1 Each 0 10/06/2023 Active [employer] Flex System w/Device Kit Use to test blood sugars 4 times daily (fasting, 1 hour after breakfast, lunch, and dinner) 1 Kit 0 10/11/2023 Active [employer] In Vitro Strip (Glucose Blood) Use to test blood sugars 4 times daily (fasting, 1 hour after breakfast, lunch, and dinner) 125 Strip 6 10/11/2023 Active [employer] Delica Lancets 30G Use to test blood [...] as of this encounter (statuses as of 10/20/2023) Active Problems Problem Noted Date Diagnosed Date 30 weeks gestation of 10/19/2023 Diet controlled [...] blood sugars each week for MFM review Last Assessment & Plan: CONSIDERATIONS: Reviewed etiology [...] Recommend nutrition consult with RDN (Registered Dietitian Foundry Worker Apprentice). Lifestyle changes are also indicated including optimizing [...] 1 11/07/2022 Food insecurity 08/14/2023 Overview: Per [facility] Protocol Supervision of high risk in third trim guzman 08/08/2023 Last Assessment & Plan: growth and fluid appropriate for gestational age. All visualized anatomy appears normal. BLAKE (dyspnea on exertion) 06/26/2023 Bipolar disease during 06/09/2023 Overview: Reports bipolar. Denies SI/HI. Obtained counseling through [facility]. Last Assessment & Plan: No meds, [...] valvular surgery after delivery, and in a [id number] basis after evaluating the particular disease process [...] in January 2023. She reports that her it architecture consultant said she had PH, but that they [...] her most recent echo on file from [facility] (performed in 07/2023), which demonstrated overall [...] reported some decrease in movement to the manager media relations. complicated by subutex maintenance, an tepartum 05/18/2023 [...] child born at 35 weeks. Was on [place] in previous pregnancies. Last Assessment & Plan: [...] patients who previously received 17P. Patient's primary SERVICES ADVISOR can coordinate therapy if desired. For patients [...] breech then ERLTCS. Last in 2019 at [facility]. Desires repeat with tubal at [facility]. Last Assessment & Plan: CONSIDERATIONS: Reviewed that [...] delivery at 36-37 weeks without amniocentesis per [employer]. Every effort should be made by patient s primary OB provider to obtain prior operative reports. As per [employer]'s 2010 practice [...] ripening or induction of labor. History of VA (myocardial infarction) 07/27/2018 Overview: [...] as of this encounter (statuses as of 10/20/2023) Resolved Problems Problem Noted Date Diagnosed Date Resolved Date Tricuspid valve replaced 01/12/2022 Unspecified asthma, uncomplicated 03/14/2021 01/12/2022 Depressive disorder 03/14/2021 01/13/20 22 delivery delivered 08/23/2020 10/06/2020 Drug use affecting 07/10/2020 10/06/2020 Overview: +marijuana Asthma during 05/04/2020 0101/2021 Last Assessment & Plan: She reports well-controlled [...] in 10 months. Using medical marijuana through [employer] [facility] 01/14/2020 Angy Chase RN 01/14/2020 [...] Taken Date entered Entered by Date resolved [facility] breastpump form completed and faxed to [facility] for pt. 07/23/2020 Lisset Gonzalez RN [...] 10/06/2020 Overview: Delivered at 35w0d Previously on [place] Stopped at 36w Opioid dependence, uncomplicated 01/16/2019 01/14/2020 Tobacco use disorder 01/16/201906/09/ 023 Last Assessment & Plan: Strongly advised [...] amphedamines, marijuana on tox screen 07/31/18 at [facility] Bipolar 1 disorder 07/12/2017 8 Attention [...] as of this encounter (statuses as of 10/20/2023) Immunizations Name Administration Dates Next Due COVID-19 [...] money to get more. Sometimes true 11/2022 [place] Depression Scale Answer Date Recorded [place] Depression Scale Total 11 05/17/2023 The thought [...] Reading Time Taken Comments Blood Pressure 100/60 10/20/2023 9:14 AM EST Pulse - - Temperature - - Respiratory Rate - - Oxygen Saturation - - Inhaled Oxygen Concentration - - Weight 84.8 kg (187 lb) 10/20/2023 9:14 AM EST Height 166.7 cm (5' 5.63") 10/20/2023 9:14 AM ES T Body Mass Index 30.52 10/20/2023 9:14 AM EST documented in this [...] Progress Notes * Sharron Robertson CRNP - 10/20/2023 9:55 AM EST 30w5d Has 2 teeth that need pulled. Oral surgeon (Dr Ferrari in [place]) feels they need removed prior to delivery. He would like her to d/c Lovenox for one week prior to extraction. Ask A Doc sent to [facility] regarding this. Noticed wetness on underwear at work last night. Wearing light blue scrub pants, did not soak on topants. She is going home after this and going to sleep. Advised to call if continued wetness after she wakes up. Low suspicion for ROM based on explanation. Dx with GDM, had consult with [facility] team yesterday. She has no questions regarding this today. Baby is active. Denies contractions or bleeding. NICKOLAS Rodriguez * Nancy Mobley LPN - 10/20/2023 9:14 AM EST 30w5d Need two teeth pulled before delivering and dentist has concerns with lovenox inj Pt does not see anyone specific for these we have been prescribing lovenox documented in this encounter Nursing Notes * Mercedez Valente RN - 10/20/2023 9:23 AM EST Patient seen by [facility] Farm Rancher. Patient denies any questions or concerns. documented in this encounter Plan of Treatment Upcoming Encounters Date Type Department Care Team (Late st Contact Info) Description 10/26/2023 10:15 AM EST Office Visit Cardiology [facility] [address] [place] [address] Summer Cartagena CRNP [address] [place] [id number] 10/27/2023 3:00 PM EST Office Visit Medical Charge Entry Specialist Obstetrics [facility] [place] [address] [place] [address] Cristino Garcia, [address] [place] [facility] [place] [address] 10/27/2023 3:00 PM EST Imaging Radiology [facility] [place] [address] [place] [address] 11/02/2023 11:30 AM EST Office Visit Gynecology/Obstetrics [facility] [address] [place] [address] Shantelle Richmond CRNP [address] [place] [address] 11/06/2023 5:10 PM EST [facility] [address] [place] [address] [facility] [address] [place] [address] 11/13/2023 9:00 AM EST Office Visit Gynecology/Obstetrics [facility] [address] [place] [address] Marcellus Lira MD [address] [place] [address] 11/14/2023 3:30 PM EST [facility] [address] [place] [address] Kassi Cole, GERALD [address] [place] [address] 11/15/2023 9:00 AM EST Office Visit Gynecology/Obstetrics [facility] [address] [place] [address] Marcellus Lira MD [address] [place] [address] 11/28/2023 9:00 AM EST Office Visit Gynecology/Obstetrics [facility] [address] [place] [address] Marcellus Lira MD [address] [place] [address] 12/06/2023 2:00 PM EST Office Visit Gynecology/Obstetrics [facility] [address] [place] [address] Shantelle Richmond CRNP [address] [place] [address] 12/11/2023 9:00 AM EDT Office Visit Gynecology/Obstetrics [facility] [address] [place] [address] Marcellus Lira MD [address] [place] [address] 12/21/2023 11:30 AM EDT Office Visit Gynecology/Obstetrics [facility] [address] [place] [address] Shantelle Richmond CRNP [address] [place] [address] Health Maintenance Due Date Last Done Comments [...] this encounter Medical Devices Implanted Type Area Franchise Sales Representative Device Identifier Shelf Expiration Date Model / Serial / Lot Ring [employer] [id number] - [id number] Implanted:Qty: 1 on 08/09/2016 by Suha Harding MD at [place] [facility] N/A: Heart [employer] 08/31/2019 [id number] / [id number] / [id number] documented as of this encounter Visit Diagnoses Diagnosis H/O tricuspid valve repair- Primary Personal history of surgery to heart and great vessels, presenting hazards to health History of VA (myocardial infarction) Old myocardial infarction History of [...] care of mother ([facility]) Other maternal viral disease, antepartum PHT (pulmonary hypertension) ([facility]) Other chronic pulmonary heart diseases Heart disease in mother affecting in first trimester Bipolar disease during in third trimester (HCC) Supervision of high risk in third trimester Unspecified high-risk Diet controlled gestational diabetes mellitus (GDM) in [...]
--- OUTSIDE RECORDS SUMMARY | 2023-11-08 22:12 | External Medical Summary | Summary of Care ---
Author Name Unknown Organization [facility] Address [address] [place] [address] Phone [phone] Care Team Providers Care Admissions Assistant Name Role Phone Unavailable Primary Care Provider Unavailabl e Reason for Referral * Evaluate & Treat - Unlimited Visits (Within 3 days (urgent)) - Pending Review Specialty Diagnoses / Procedures Referred By Karlene valle Referred To Contact Belly Packer Diagnoses Diet controlled gestational diabetes mellitus (GDM) in third trimester Jazmin Robledo CRNP [address] [place] [address] Referral ID Status Reason Start Date Expiration Date Visits Requested Visits Authorized [id number] Pending Review Specialty Services Required 10/19/2023 1 1 Question Answer Referral Priority Within 3 days (urgent) Where should this appointment be scheduled? [facility] Program Type Chronic Disease Management Chronic Disease Management Diabetes in Alarm Settings Standard per protocol Comments One touch Verio Reason for Visit * Reason Comments Follow Up Gestational diabetes * Evaluate & Treat - Unlimited Visits (Within 10 days (routine)) - Pending Review Specialty Diagnoses / Procedures Referred By Karlene valle Referred To Contact Obstetrics/Gynecology / Maternal Medicine Diagnoses Gestational diabetes mellitus (GDM) in third trimester, gestational diabetes method of control unspecified Lesa Degroot PA-C [address] [place] [address] Referral ID Status Reason Start Date Expiration Date Visits Requested Visits Authorized [id number] Pending Review Specialty Services Required 10/11/[phone] Encounter Details Date Type Department Care Team (Late st Contact Info) Description 10/19/2023 1:00 PM EST Telemedicine Hair Specialist Obstetrics Maternal Medicine, [place] [address] [place] [address] Jazmin Robledo CRNP [address] [place] [address] Diet controlled gestational diabetes mellitus (GDM) in third trimester*; Supervision of high risk in third trimester; 30 weeks gestation of Allergies Active Allergy Reactions Criticality Noted Date [...] Active Additional Information Patient taking differently: 2 [place] Nasal DAILY PRN, Reported on 11/04/2022 Buprenorphine [...] daily while 1 Each 0 10/06/2023 Active Iconfinder Flex System w/Device Kit Use to test blood sugars 4 times daily (fasting, 1 hour after breakfast, lunch, and dinner) 1 Kit 0 10/11/2023 Active Iconfinder In Vitro Strip (Glucose Blood) Use to test blood sugars 4 times daily (fasting, 1 hour after breakfast, lunch, and dinner) 125 Strip 6 10/11/2023 Active Trigemina DelPole Star Lancets 30G Use to test blood sugars [...] 2.5 mgIndications:BLAKE (dyspnea on exertion),PHT (pulmonary hypertension) ([facility]),Mild persistent asthma with exacerbation 2.5 [...] Recommend nutrition consult with RDN (Registered Dietitian Pack Puller). Lifestyle changes are also indicated including optimizing [...] 1 11/07/2022 Food insecurity 08/14/2023 Overview: Per Medical Referral Source Pharmacy Protocol Supervision of high risk in [...] any further issues. Also reports history of OK. She had a negative heart catheterization at [...] valvular surgery after delivery, and in a [id number] basis after evaluating the particular disease process [...] in January 2023. She reports that her group teacher said she had PH, but that they [...] her most recent echo on file from [facility] (performed in 07/2023), which demonstrated overall stable [...] reported some decrease in movement to the java web services developer. complicated by subutex maintenance, an tepartum 05/18/2023 Overview: Following with [facility] Armendar[facility]. Taking 16 mg daily Subutex. Is [...] patients who previously received 17P. Patient's primary RAND BUTTING MACHINE OPERATOR can coordinate therapy if desired. [...] then ERLTCS. Last in 2019 at [facility]. Desires repeat with tubal at [facility]. Last Assessment & Plan: CONSIDERATIONS: Reviewed that [...] delivery at 36-37 weeks without amniocentesis per [employer]. Every effort should be made by patient s primary OB provider to obtain prior operative reports. As per [employer]'s 2010 practice [...] ripening or induction of labor. History of OK (myocardial infarction) 07/27/2018 Overview: Age 27, s/p [...] in 10 months. [facility] 01/14/2020 Angy Chase RN 01/14/2020 [...] Taken Date entered Entered by Date resolved [facility] breastpump form completed and faxed to [facility] for pt. 07/23/2020 Lisset Gonzalez RN [...] 10/06/2020 Overview: Delivered at 35w0d Previously on Mazie Stopped at 36w Opioid dependence, uncomplicated 01/16/2019 [...] amphedamines, marijuana on tox screen 07/31/18 at [facility] ED Bipolar 1 disorder 07/12/2017 [...] money to get more. Sometimes true 11/2022 [place] Depression Scale Answer Date Recorded [place] Depression Scale Total 11 05/17/2023 The thought [...] as of this encounter Progress Notes * Jazmin Robledo CRNP - 10/19/2023 1:24 PM EST MATERNAL MEDICINE CONSULT Nancy Hernandez Consult date: 10/19/23 REFERRING PROVIDER: Lesa Degroot PA-C Patient location: HOME. I was in a hospital or clinic location. After connecting through [employer],patient was verified with two unique identifiers. Patient (or authorized legal route sales representative) was then informed that this was a Telemedicine visit and being conducted confidentially over secure lines. Methods to assure confidentiality were taken. Patient acknowledged consent and understanding of pr ivacy and security of the Telemedicine visit. The patient agreed to participate. Nancy Hernandez is a 33 year old with intrauterine at 30w4d (Estimated Date of Delivery: 12/24/23 by 6w4d ultrasound) who presents today for an MFM consult due to gestational diabetes. Ms. Hernandez had a full MFM consult on 06/09/2023 due to subutex use during , Hepatitis C, bipolar disorder, history of , history of delivery HSV, history of tricuspid valve repair and infective endocarditis, history of IV drug use and pulmonary embolism. HPI/CURRENT : pre- BMI=normal (Pregravid weight: 184 lbs; 5' 5.63"); FOB Chente; complicated by above. Genetic testing: Low Risk Cell Free DNA Ob [facility] HB Problems (from 05/17/23 to present) Problem Noted Resolved Diet controlled gestational diabetes mellitus (GDM) in third trimester 10/18/2023 by Jazmin Robledo CRNP No Overview Addendum 10/19/2023 1:29 PM by Jazmin Robledo CRNP Diagnosed at 29 weeks Nutrition consult completed [...] MFM ADAPT consult complete. Enrolled in [facility]. Instructions provided to report blood sugars each week for MFM review. Reviewed diet and exercise. I have reviewed this patient's previous OB ultrasound reports, pertinent labwork and testing provided by her referring OB provider. Current Outpatient Medications Medication Sig Dispense Refill albuterol HFA (VENTOLIN HFA) 108 (90 BASE) MCG/ACT inhaler Inhale 2 Puffs by mouth every 4 hours asneeded for Shortness of Breath. 1 Inhaler 1 albuterol sulfate (PROVENTIL) (2.5 MG/3ML) 0.083% nebulizer solution Inhale 1 Vial via nebulizer every 4 hours as needed for Wheezing. 120 Vial 11 Breast Pump Pump daily while 1 Each 0 Buprenorphine HCl 2 MG Sublingual Tablet Sublingual (Subutex) Place 1 Tablet under the tongue in the morning. Enoxaparin Sodium 40 MG/0.4ML Injection Solution Prefilled Syringe (Lovenox) Inject 40 mg under theskin in the morning. Transition to heparin at 36 weeks gestation. 12 mL 5 Fluticasone Propionate 50 MCG/ACT Nasal Suspension (Flonase) SPRAY 2 SPRAYS INTO EACH NOSTRIL EVERYDAY (Patient taking differently: Administer 2 Sprays into nostril daily as needed.) 48 mL 3 Nebulizers (NEBULIZER COMPRESSOR) MISC Inhale via nebulizer. Use as directed. 1 Each 1 Omeprazole 20 MG Oral Capsule Delayed Release (PriLOSEC) Take 1 Capsule by mouth in the morning. Take 30 minutes before eating.. 30 Capsule 1 Ondansetron 4 MG Oral Tablet Disintegrating (Zofran) Place 1 Tablet on tongue every 8 hours as needed for Nausea. dissolve on tongue. 20 Tablet 0 OneTouch Delica Lancets 30G Use to test blood sugars 4 times daily (fasting, 1 hour after breakfast, lunch, and dinner) 200 Each 6 Yuanfen~Flow™uch Verio Flex System w/Device Kit Use to test blood sugars 4 times daily (fasting, 1 hour after breakfast, lunch, and dinner) 1 Kit 0 MoondoTouch Verio In Vitro Strip (Glucose Blood) Use to test blood sugars 4 times daily (fasting, 1 hour after breakfast, lunch, and dinner) 125 Strip 6 Complete Oral Capsule Therapy Pack Take by mouth. Promethazine HCl 25 MG Rectal Suppository (Phenergan) Administer 1 Suppository into the rectum every 6 hours as needed for Nausea. 20 Each 0 valACYclovir HCl 500 MG Oral Tablet (Valtrex) Take 1 Tablet by mouth in the morning. 30 Tablet 3 Vitamin B-6 25 MG Oral Tablet Take by mouth. Current Facility-Administered Medications Medication Dose Route Frequency Provider Last Rate Last Admin Albuterol Sulfate (Proventil) (2.5 MG/3ML) 0.083% inhalation solution 2.5 mg 2.5 mg Nebulizer PRN Nadeem Beltran MD 2.5 mg at 01/25/23 1350 Albuterol Sulfate (Proventil) (2.5 MG/3ML) 0.083% inhalation solution 2.5 mg 2.5 mg Nebulizer Q4H PRN Justino Rey MD 2.5 mg at 10/05/23 0818 Albuterol Sulfate (Proventil) (5 MG/ML) 0.5% *conc* inhalation solution 2.5 mg 2.5 mg Nebulizer Nadeem Calderón MD Review of patient's allergies indicates: Allergen Reactions Bactrim [Sulfamethoxazole-Trimethoprim] Nausea/vomiting Nausea when taken with keflex Doxycycline Nausea/vomiting Keflex [Cephalexin] Nausea/vomiting Nausea when taken with bactrim OB History Para Term AB Living 4 3 2 1 0 3 SAB IAB Ectopic Multiple Live Births 0 0 0 0 3 # Outcome Date GA Lbr Daron/2nd Weight Sex Delivery Anes PTL Lv 4 Current 3 Term 08/20/20 40w2d 3.63 kg (8 lb) F CS-LTranv Spinal N JOSÉ 2 Term 05/25/15 37w0d 2.665 kg (5 lb 14 oz) F CS-Unspec Y JOSÉ 1 02/15/09 35w0d 2.58 kg (5 lb 11 oz) M Vag-Spont Y JOSÉ Obstetric Comments 1st vaginal delivery, Had 2 blood transfusions with first, born 5 wks early 2nd csec sec to breech presentation. FOB#2 Chente, 46yo, CHTN, 1 child outside of relationship, healthy Past Medical History: Diagnosis Date Asthma, severe persistent 09/10/2018 Does breathing treatments twice daily Atypical squamous cell changes of undetermined significance (ASCUS) on cervical cytology with negative high risk human papilloma virus (HPV) test result 10/2019 Bipolar 2 disorder ([facility]) 10/2017 Bipolar II disorder ([facility]) 03/14/2021 Cannabis use disorder, moderate, dependence ([facility]) 10/2017 CHF (congestive heart failure) ([facility]) 10/2014 Chronic thoracic back pain 10/2017 Drug withdrawal seizure ([facility]) 10/2017 Endocarditis 10/2014 Tricuspid Generalized anxiety disorder 10/2017 H/O tricuspid valve repair 08/22/2016 MDC at 32w Hepatitis C antibody test positive History of 2019 novel coronavirus disease (COVID-19) History of OK (myocardial infarction) 07/27/2018 Age 27, s/p drug withdraw History of vertebral fracture 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 IV drug abuse ([facility]) 2014 heroin Marijuana use 01/31/2020 Medical marijuana use 07/27/2018 Pt has a medical marijuana card Methamphetamine use ([facility]) Myocardial infarct ([facility]) 2014 NSTEMI due to ritalin OD Non compliance w medication regimen 07/22/2016 Opioid dependence, uncomplicated ([facility]) 01/16/2019 PE (pulmonary thromboembolism) ([facility]) age 21 Pseudoseizures 10/2017 PTSD (post-traumatic stress disorder) 10/2017 Respiratory failure ([facility]) 10/2014 Sedative, hypnotic or anxiolytic use disorder, severe, dependence ([facility]) 10/2017 Septic embolism ([facility]) 10/2014 hospitalized in [place] 4 months, coma at least 2 weeks Sphincter of Oddi dysfunction 01/12/2022 Stimulant use disorder 10/2017 Tobacco use disorder 01/16/2019 Tobacco use disorder, severe, dependence 10/2017 Tricuspid regurgitation 10/2014 Tricuspid valve replaced 01/12/2022 Use of nonprescription opiate drugs (HCC) 10/2017 Past Surgical History: Procedure Laterality Date DELIVERY 2014 DELIVERY ONLY W/ N/A 08/20/2020 DELIVERY AND CARE performed by Leonid Rosenbaum MD at OB [facility] CHOLECYSTOTOMY OR CHOLECYSTOSTOMY, PERC age 20 CORONARY ANGIOGRAPHY W/LEFT HEART CATH 07/26/2016 CORONARY ANGIOGRAPHY W/LEFT HEART CATH performed by Robert Cordova MD at CARDIAC LABS [facility] CV ECHO, BANDAR INTRAOPERATIVE N/A 10/05/2021 ECHOCARDIOGRAPHY, TRANSESOPHAGEAL; INCLUDING PROBE PLACEMENT, IMAGE ACQUISITION, INTERPRETATION ANDREPORT performed by In And Out Surgery [facility] at [facility] EGD, FLEXIBLE, DIAGNOSTIC 08/22/2018 normal/[facility] EGD, FLEXIBLE, DIAGNOSTIC 11/30/2021 normal bx / ESOPHAGOGASTRODUODENOSCOPY (EGD), FLEXIBLE, TRANSORAL, DIAGNOSTIC performed by Gregorio Mars MD at ENDOSCOPY [facility] INFORMATION 08/09/2016 [employer] Triad Tricuspid Model#[id number] REMOVE TONSILS & ADENOIDS, AGE 12+ age 14 REPLACE TRICUSPID VALVE, W/BYPASS N/A 08/09/2016 REPLACEMENT TRICUSPID VALVE WITH BYPASS performed by Suha Harding MD at [facility] SURGICAL REMOVAL, ERUPTED TOOTH AND BONE N/A 07/29/2016 SURGICAL EXTRACTION ERUPTED TOOTH performed by Griffin Bell DDS at [facility] Family History Problem Relation Age of Onset No Known Problems Mother Other (smoker) Father Diabetes Sister No Known Problems Sister Hypertension Grandmother (Maternal) Diabetes Grandmother (Maternal) Other (Heart Disease) Grandmother (Maternal) Hypertension Grandfather (Maternal) Stroke Grandfather (Maternal) Heart disease Grandfather (Maternal) Social History Tobacco Use Smoking status: Former Packs/day: 1.00 Years: 15.00 Additional pack years: 0.00 Total pack years: 15.00 Types: Cigarettes Start date: 2006 Quit date: 2021 Years since quittin.0 Smokeless tobacco: Never Vaping Use Vaping Use: Former Substance Use Topics Alcohol use: Not Currently Comment: 2019 Drug use: Not Currently Types: Marijuana Comment: Marijuana currently medical card. no heroin or methamphetamines since 2019 REVIEW OF SYSTEMS: headaches: no nausea/vomiting: reports occas n/v reports movement: yes abdominal pain/tenderness/cramping/contractions: yes / occasionally, mild vaginal bleeding: no vaginal leaking of fluid: no all other systems negative PHYSICAL EXAM: There were no vitals taken for this visit. General: Well appearing Psych: Alert to time, place, and person and Pleasant DISCUSSION/RECOMMENDATIONS: Problem List Items Addressed This Visit Ob [facility] Diet controlled gestational diabetes mellitus (GDM) in third trimester - Primary CONSIDERATIONS: Reviewed etiology and risks associated with gestational diabetes mellitus (GDM), including risks topregnancy, fetus, and maternal progression to Type 2 [...] Recommend nutrition consult with RDN (Registered Dietitian Pack Puller). Lifestyle changes are also indicated including optimizing gestational weight gain and physical activity of 30 minutes per day, if not otherwise contraindicated in . Insulin is preferred if medications are indicated to optimize euglycemia. Metformin (preferred overglyburide) may also be used in some circumstances. [...] with 75-gram glucose load 6-8 weeks . Relevant Orders REMOTE PATIENT MONITORING REFERRAL Follow up ultrasound with Maternal Medicine is scheduled on 10/27/[address] Garcia for growth scan secondary to gestational diabetes and other indications. Patient is aware of upcoming MFM appointment. Total time spent face to face in this visit was 30 minutes of which more than 50% was spent discussing and counseling the patient/caregiver(s) regarding gestational diabetes, diet and exercise. Totaltime spent on this date of service including non face to face was 40 minutes in preparation, delivery, and documentation of care provided to Nancy Hernandez, excluding time spent in performance of separately billable services. Details outlined above in impression and plan. NICKOLAS Dominique 10/19/2023 1:34 PM documented in this encounter Miscellaneous Notes * Pt Handout (on AVS) - Jazmin Robledo CRNP - 10/19/2023 1:37 PM EST Images from the original note were not included. [id number] Understanding Carbohydrates A car needs the right type of fuel to run. And you need the right kind of food to function. To keepyour energy level up, your body needs food that has carbohydrates (carbs). But carbs raise blood sugar levels higher and faster than other kinds of food. Your dietitian will work with you to figure out the amount of carbs you need. Carbs come in 3 types: starches, sugars, and fiber. Starches Starches are found in grains, some vegetables, and beans. Grain products include bread, pasta, cereal, and tortillas. Starchy vegetables include potatoes, peas, corn, nolasco beans, yams, and squash. Kidney beans, cordova beans, black beans, garbanzo beans, and lentils also have starches. Sugars Sugars are found naturally in many foods. Or they can be added. Foods that contain natural sugar include fruits and fruit juices, dairy products, honey, and molasses. Added sugars are found in most desserts, processed foods, candy, regular soda, and fruit drinks. These are very helpful to treat lowblood sugar (hypoglycemia). They give you sugar quickly. Try to keep at least 15 to 20 grams of these simple sugars with you at all times. Eat or drink these if you start to have symptoms of low blood sugar. Fiber Fiber comes from plant foods. Your body can't digest most fiber. Instead of raising blood sugar levels like other carbs, fiber stops blood sugar from rising too fast. Fiber is found in fruits, vegetables, whole grains, beans, peas, and many nuts. Carb counting Keep track of the amount of carbs you eat. This can help you keep the right balance of carbs, physical activity, and medicine. The amount of carbs you need will be different from what other people need. How much you need depends on many things. These include your health, the medicines you take, andhow active you are. Your healthcare team will help you figure out the right amount of carbs for you. You may start with 45 to 60 grams of carbs per meal, depending on your case. Carb counting is a system that helps you keep track of the carbohydrates you eat at each meal. Carbs come from many foods. These include grains, starchy vegetables, fruit, milk, beans, and snackfoods. You can either count carbohydrate grams or carbohydrate servings. When you count carbohydrate servings, 1 carbohydrate serving = 15 grams of carbohydrates. Here are some examples of foods that have about 15 grams of carbs (1 serving of carbohydrates): 1/2 cup of canned or frozen fruit A small piece of fresh fruit (4 ounces) 1 slice of bread 1/2 cup of oatmeal 1/3 cup of rice 4 to 6 crackers 1/2 Marshallese muffin 1/2 cup of black beans 1/4 of a large baked potato (3 ounces) 2/3 cup of plain fat-free yogurt 1 cup of soup 1/2 cup of casserole 6 chicken nuggets 4-bjni-jyxado brownie or cake without frosting 2 small cookies 1/2 cup of ice cream or sherbet Carb counting is easier when food labels are available. Look at the label to see how many grams of total carbs per serving the food contains. Then you can figure out how much you should eat. If your food doesn't have a nutrition label, you should be able to get an idea how many carbs there are per serving by using a book or website. Two very important lines to look at on the label are the serving size and the total carbohydrate amount per serving. Here are some tips for using food labels to count your carbs: Check the serving size. The information on the label is based on that serving size. If you eat more than the listed serving size, you may have to double or triple the other information on the label. Check the total grams of carbs. Total carbohydrate from the label includes sugar, starch, and fiber. Be sure to use the total carbohydrate number (minus the fiber) and not sugar alone. Know how many grams of carbs you can have. Be familiar with the matching portion sizes. Compare labels. Compare the labels of different products. Look at serving sizes and total carbs to find the products that work best for you. Don't forget protein and fat. With the focus on carb counting, it might be easy to forget protein and fat in your meals. Don't forget to include sources of protein and healthy fat to balance your meals. Also watch how much salt (sodium) you eat. This is especially true if you have high blood pressure. If you have diabetes, limit the amount of sodium to less than 2,300 mg a day. It?s also important to be consistent with the amount of carbs and time you eat when taking a fixed dose of diabetes medicine. Work with your healthcare provider or dietitian if you need more help. They can help you keep track of your carbs. They can also help you figure out how many grams of carbs you should have. Last Reviewed Date: 09/01/202119999115-9648 [employer]. All rights reserved. This information is not intended as a substitute for professional medical care. Always follow your healthcare professional's instructions. * Pt Handout (on AVS) - Jazmin Robledo CRNP - 10/19/2023 1:37 PM EST [id number] Understanding Blood Sugar During Gestational diabetes causes high blood sugar levels during . You are at risk of developing, or perhaps have already developed, gestational diabetes. Controlling your blood sugar can help prevent problems for you and your baby. Your body turns food into blood sugar As food is digested, it turns into sugar (glucose), a fuel that feeds your body. This sugar goes into your bloodstream. Your body then releases a substance called insulin to help your body use blood sugar correctly. Blood sugar goes to your baby The placenta is where nutrients in your blood are exchanged with your baby's blood. Your blood sugar goes to your baby from the placenta through the umbilical cord. Your baby uses this sugar to grow. Too much blood sugar affects you and your baby During , the placenta makes hormones that can disrupt the way your body uses insulin. If your body can't use insulin correctly, your blood sugar level gets too high. Then too much blood sugar goes to your baby. This can cause problems for both you and your baby. Controlling your blood sugar helps prevent problems You can lower your blood sugar by eating right, exercising, and taking medicines that your healthcare provider prescribes to control your blood sugar. If you keep your blood sugar in control, the risks to you and your baby are the same as those for a normal . Last Reviewed Date: 04/01/202119997290-7773 [employer]. All rights reserved. This information is not intended as a substitute for professional medical care. Always follow your healthcare professional's instructions. * Pt Handout (on AVS) - Jazmin Robledo CRNP - 10/19/2023 1:37 PM EST Images from the original note were not included. [id number] Gestational Diabetes: Exercise Exercise can help you keep your blood sugar in a normal range. That?s because your body uses more blood sugar when you exercise. Diabetes in can often be managed with careful nutrition and exercise alone. Then you may not need medicine to control your blood sugar. Exercise regularly Your healthcare provider may want you to exercise each day. The best time depends on when your blood sugar is highest. Exercising may also help ease some common symptoms of . These include bloating, constipation, and backaches. Ask about exercise at your first care visit. Your provider will work with you to make an exercise plan that fits your needs. Here are some tips: Aim to exercise for 30 to 60 minutes a day. Do this at moderate intensity. This means you're moving enough to raise your heart rate and start sweating. But you can still talk normally. Try breaking up daily exercise into 2 or 3 sessions. For example, take a 15- minute walk after each meal. Exercise with a friend or your partner. This may help you stick to your exercise plan. Go at a comfortable pace. Don?t tire yourself out. Exercise safely Ask your provider about exercise safety for you and your baby. Walking, swimming, and low-impact orwater aerobics are often the safest things to do. Other safety tips include: Don't do activities where you jump, turn, twist, stop or start quickly. Don't lift heavy weights. Don't exercise on your back after the first trimester. This can put too much pressure on an important vein. It can limit blood flow to the baby. If you do yoga or Pilates, find a class designed for . Use a sports bra to support your breasts. You may also want to use a belly support belt later inpregnancy. Don't get overheated. Don't do hot yoga or hot Pilates. Don't raise your heart rate to a level that makes it hard to talk. Drink plenty of water. If you use insulin, carry a carbohydrate snack with you. If you walk or do low-impact aerobics, wear sturdy shoes. If you haven?t eaten in 2 or more hours, have a light snack before exercising. Don't do contact sports that put you at risk of being hit in the belly. These include boxing, ice hockey, soccer, and basketball. Don't go skydiving or scuba diving. Don't do things that may cause a serious fall. These include horseback riding, gymnastics, and off-road cycling. Use a stationary bike. It's a safer choice than a standard bike. It will stop you from getting off balance with your growing belly. When it's not safe to exercise It's not advised to exercise when if you have any of these health conditions: Some types of heart and lung diseases with twins or more, and at risk for labor labor of your water has broken (ruptured membranes) Placenta previa later than 26 weeks of Preeclampsia or high blood pressure due to Severe anemia Cervical insufficiency or cerclage When to call your healthcare provider Call your provider right away or go to the emergency room (ER) if you have any of these: Belly pain Shortness of breath before starting exercise Vaginal bleeding Dizziness or feeling faint Chest pain Headache Decreased movement contractions Muscle weakness Calf pain or swelling Fluid leaking from the vagina Last Reviewed Date: 11/02/202119995560-5551 [employer]. All rights reserved. This information is not intended as a substitute for professional medical care. Always follow your healthcare professional's instructions. * Pt Handout (on AVS) - Jazmin Robledo CRNP - 10/19/2023 1:37 PM EST Images from the original note were not included. Diabetes in - Video Two types of diabetes can occur during ?pre-existing diabetes, which will continue after , and gestational diabetes, which will go away after the baby is born. Diabetes is a condition in which your body doesn?t make enough insulin or you can?t use it correctly. This video offers details on how these two types diabetes can affect a . To view the video go to this web address: [email or web address], scan this QR code with your smart phone Last Reviewed Date: 01/01/202019994437-2449 [employer]. All rights reserved. This information is not intended as a substitute for professional medical care. Always follow your healthcare professional's instructions. * Pt Handout (on AVS) - Jazmin Robledo CRNP - 10/19/2023 1:37 PM EST Images from the original note were not included. Gestational Diabetes - Video To view the video go to this web address: [email or web address], scan this QR code with your smart phone [employer] * Assessment & Plan Note - Jazmin Robledo CRNP - 10/19/2023 1:29 PM EST Associated Problem(s): Diet controlled gestational diabetes mellitus (GDM) in third trimester CONSIDERATIONS: Reviewed etiology and risks associated with gestational diabetes mellitus (GDM), including risks topregnancy, fetus, and maternal progression to Type 2 [...] Recommend nutrition consult with RDN (Registered Dietitian Pack Puller). Lifestyle changes are also indicated including optimizing gestational weight gain and physical activity of 30 minutes per day, if not otherwise contraindicated in . Insulin is preferred if medications are indicated to optimize euglycemia. Metformin (preferred overglyburide) may also be used in some circumstances. [...] with 75-gram glucose load 6-8 weeks . documented in this encounter Plan of Treatment Upcoming Encounters Date Type Department Care Team (Late st Contact Info) Description 10/20/2023 9:30 AM EST Office Visit Gynecology/Obstetrics [facility] [address] [place] [address] Sharron Robertson CRNP [address] [facility] [place] [address] 10/26/2023 10:15 AM EST Office Visit Cardiology [facility], [place] [address] [place] [address] Summer Cartagena CRNP [facility] [place] [address] 10/27/2023 3:00 PM EST Office Visit Hair Specialist Obstetrics Maternal Medicine, [place] [address] [place] [address] Cristino Garcia, DO [address] [place] [address] 10/27/2023 3:00 PM EST [facility] [address] [place] [address] 11/02/2023 11:30 AM EST Office Visit Gynecology/Obstetrics [facility] [address] [place] [address] Shantelle Richmond CRNP [address] [place] [address] 11/06/2023 5:10 PM EST [facility] [address] [place] [address] [facility] [address] [place] [address] 11/13/2023 9:00 AM EST Office Visit Gynecology/Obstetrics [facility] [address] [place] [address] Marcellus Lira MD [address] [place] [address] 11/14/2023 3:30 PM EST [facility] [address] [place] [address] Kassi Cole RDN [address] [place] [address] 11/15/2023 9:00 AM EST Office [facility] [address] [place] [address] Marcellus Lira MD [address] [place] [address] 11/28/2023 9:00 AM EST Office Visit Gynecology/Obstetrics [facility] [address] [place] [address] Marcellus Lira MD [address] [place] [address] 12/06/2023 2:00 PM EST Office Visit Gynecology/Obstetrics [facility] [address] [place] [address] Shantelle Richmond CRNP [address] [place] [address] 12/11/2023 9:00 AM EDT Office Visit Gynecology/Obstetrics [facility] [address] [place] [address] Marcellus Lira MD [address] [place] [address] 12/21/2023 11:30 AM EDT Office Visit Gynecology/Obstetrics [facility] [address] [place] [address] Shantelle Richmond CRNP [address] [place] [address] Scheduled Referrals Name Type Priority Associated Diagnoses Orde r Schedule REMOTE PATIENT MONITORING REFERRAL Referral Within 3 days (urgent) Diet controlled gestational diabetes mellitus (GDM) in third trimester Ordered: 10/19/2023 Health Maintenance Due Date Last Done Comments [...] this encounter Medical Devices Implanted Type Area Corporate Banking Officer Device Identifier Shelf Expiration Date Model / Serial / Lot Ring Triad [id number] - [id number] Implanted:Qty: 1 on 08/09/2016 by Suha Harding MD at [place] [facility] N/A: Heart [employer] 08/31/2019 [id number] / [id number] / [id number] documented as of this encounter Visit Diagnoses Diagnosis Diet controlled gestational diabetes mellitus (GDM) in third trimester- Primary Supervision of high risk in third trimester Unspecified high-risk 30 weeks gestation of state, incidental documented in [...]
--- OUTSIDE RECORDS SUMMARY | 2023-11-08 22:12 | External Medical Summary | Summary of Care ---
Author Name Unknown Organization [facility] Address [address] [place] [address] Phone [phone] Care Team Providers Care Medicare Biller Name Role Phone Unavailable Primary Care Provider Unavailabl e Reason for Visit * Reason Comments eRx-Medication Refill Encounter Details Date Type Department Care Team (Late st Contact Info) Description 10/29/2023 Refill Gynecology/Obstetrics [facility] [place] [address] [place] [address] Lesa Degroot PA-C [address] [place] [address] Nausea and vomiting during Allergies Active Allergy Reactions Criticality Noted Date [...] Active Additional Information Patient taking differently: 2 [place] Nasal DAILY PRN, Reported on 11/04/2022 Buprenorphine [...] daily while 1 Each 0 10/06/2023 Active [employer] Flex System w/Device Kit Use to test blood sugars 4 times daily (fasting, 1 hour after breakfast, lunch, and dinner) 1 Kit 0 10/11/2023 Active [employer] In Vitro Strip (Glucose Blood) Use to [...] (dyspnea on exertion),PHT (pulmonary hypertension) ([facility]),Mild persistent asthma with exacerbation 2.5 mg NEBULIZER [...] 233 10/19/2023 111 148 118 x 10/19/23: [facility] consult complete. Enrolled in Current Health. 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 Advised patient to send us readings via the chat message --KW 10/31/23-elevated sugars; schedule for adapt Last Assessment & Plan: Patient encouraged to check BG 4x daily and report via Mappyfriends neto to [facility]. Had issues with Current Health [...] in January 2023. She reports that her mortgage coordinator said she had PH, but that they were not concerned about it at this time. Last Assessment & Plan: Most recent echo on 10/18/23 reported PAP 28 mmHg, previous echos reported PAP ~40mmHg complicated by subutex maintenance, an tepartum 05/18/2023 Overview: Following with NeilMary Armendariz. Taking 16 mg daily Subutex. Is [...] patients who previously received 17P. Patient's primary LIABILITY CLAIMS EXAMINER can coordinate therapy if desired. For patients [...] clean since 2016 On subutex - Through neil 05/17/2023 Angy [...] breech then ERLTCS. Last in 2019 at [facility] [place]. Desires repeat with tubal at [facility] [place]. Last Assessment & [...] in 10 months. Using medical marijuana through [employer] [facility] 01/14/2020 Angy Chase RN 01/14/2020 nutrition [...] Taken Date entered Entered by Date resolved [facility] breastpump form completed and faxed to [facility] for pt. 07/23/2020 Lisset Gonzalez [...] money to get more. Sometimes true 11/2022 [place] Depression Scale Answer Date Recorded [place] Depression Scale Total 11 05/17/2023 The thought [...] encounter Miscellaneous Notes * Telephone Encounter - Soniya Cotto LPN - 10/31/2023 9:50 AM ESTRefused Prescriptions: Disp Refills OneTouch Verio Flex System w/Device Kit 1 Kit 0 Sig: test bloodsugars four times daily (fasting, 1 hour after breakfast, lunch, and dinner)Refused By: SONIYA COTTO LReason for Refusal: Not indicated Promethegan 25 MG Rectal Suppository (prom*20 Sup*0 Sig: Administer 1 Suppository into the rectum every 6 hours as needed for Nausea.Refused By: SONIYA COTTO for Refusal: Not indicated documented in this encounter Plan of Treatment Upcoming Encounters Date Type Department Care Team (Late st Contact Info) Description 11/02/2023 11:30 AM EST Office Visit Gynecology/Obstetrics [facility] [address] [place] [address] Shantelle [place] CRNP [address] [place] [address] 11/06/2023 5:10 PM EST [facility], [place] [address] [facility] [address] [facility] [address] [facility] [address] 11/13/2023 9:00 AM EST Office Visit Gynecology/Obstetrics [facility] [place] [address] [place] [address] Marcellus Lira MD [address] [place] [address] 11/14/2023 3:30 PM EST Telemedicine Nutrition, [facility]alen [place] [address] [place] [address] Kassi Cole, GERALD [address] [place] [address] 11/15/2023 9:00 AM EST Office Visit Gynecology/Obstetrics Saundra [facility]ogue[facility]as [address] [place] [address] Marcellus Lira MD [address] [place] [address] 11/24/2023 3:30 PM EST Office Visit Product Test Specialist Obstetrics Maternal Medicine, [place] [address] [place] [address] Cristino Garcia [address] [place] [address] 11/24/2023 3:30 PM EST [facility] [address] [place] [address] 11/28/2023 9:00 AM EST Office Visit Gynecology/Obstetrics [facility] [place] [address] [place] [address] Marcellus Lira MD [address] [place] [address] 12/06/2023 2:00 PM EST Office Visit Gynecology/Obstetrics [facility] [place] [address] [place] [address] Shantelle Richmond CRNP [address] [place] [address] 12/11/2023 9:00 AM EDT Office Visit Gynecology/Obstetrics [facility] [address] [place] [address] Marcellus Lira MD [address] [place] [address] 12/21/2023 11:30 AM EDT Office Visit Gynecology/Obstetrics [facility] [address] [place] [address] Shantelle Richmond CRNP [address] [place] [address] 02/22/2024 10:45 AM EDT Office Visit Cardiology [facility] [address] [place] [address] Summer Cartagena CRNP [address] [place] [phone] Health Maintenance Due Date Last Done Comments [...] this encounter Medical Devices Implanted Type Area Superintendent Division Device Identifier Shelf Expiration Date Model / Serial / Lot Ring Triad [id number] - [id number] Implanted:Qty: 1 on 08/09/2016 by Suha Harding MD at [place] [facility] [place] N/A: Heart [employer] 08/31/2019 [id number] / [id number] / [id number] documented as of this encounter Visit Diagnoses Diagnosis Nausea and vomiting during documented in this encounter Advance Directives Latest [...]
--- OUTSIDE RECORDS SUMMARY | 2023-11-08 22:12 | External Medical Summary | Summary of Care ---
Author Name Unknown Organization [facility] Address [address] [place] [address] Phone [phone] Care Team Providers Care Director Of Staff Development Name Role Phone Unavailable Primary Care Provider Unavailabl e Reason for Visit * Reason Onset Date Comments Home Monitoring Orders Only 10/20/2023 Encounter Details Date Type Department Care Team (Late st Contact Info) Description 10/20/2023 Home Monitoring Care Coordination [address] [place], [place] [id number] Jazmin Robledo CRNP [address] [place] [address] Diet controlled gestational diabetes mellitus (GDM) in third trimester* Allergies Active Allergy Reactions Criticality Noted Date [...] Active Additional Information Patient taking differently: 2 [place] Nasal DAILY PRN, Reported on 11/04/2022 Buprenorphine [...] daily while 1 Each 0 10/06/2023 Active [employer] Flex System w/Device Kit Use to test blood sugars 4 times daily (fasting, 1 hour after breakfast, lunch, and dinner) 1 Kit 0 10/11/2023 Active OneTouch Verio In Vitro Strip (Glucose Blood) Use to test blood sugars 4 times daily (fasting, 1 hour after breakfast, lunch, and dinner) 125 Strip 6 10/11/2023 Active [employer] Complete Home ServicesTouch Delica Lancets 30G Use to test blood [...] Recommend nutrition consult with RDN (Registered Dietitian Scarfer Operator). Lifestyle changes are also indicated including optimizing [...] 1 11/07/2022 Food insecurity 08/14/2023 Overview: Per [facility] Protocol Supervision of high risk in third trim guzman 08/08/2023 Last Assessment & Plan: growth and fluid appropriate for gestational age. All visualized anatomy appears normal. BLAKE (dyspnea on exertion) 06/26/2023 Bipolar disease during 06/09/2023 Overview: Reports bipolar. Denies SI/HI. Obtained counseling through [facility]. Last Assessment & Plan: No meds, [...] valvular surgery after delivery, and in a snsl-oj-aigr basis after evaluating the particular disease process [...] in January 2023. She reports that her sewer repairer said she had PH, but that they [...] her most recent echo on file from [facility] (performed in 07/2023), which demonstrated overall [...] reported some decrease in movement to the assistant professor of philosophy. complicated by subutex maintenance, an tepartum 05/18/2023 [...] patients who previously received 17P. Patient's primary OVERHEAD CLEANER can coordinate therapy if desired. For patients [...] then ERLTCS. Last in [address] [facility]. Desires repeat with tubal at [facility]. Last Assessment & Plan: CONSIDERATIONS: Reviewed that [...] delivery at 36-37 weeks without amniocentesis per [employer]. Every effort should be made by patient s primary OB provider to obtain prior operative reports. As per [employer]'s 2010 practice [...] ripening or induction of labor. History of AL (myocardial infarction) 07/27/2018 Overview: [...] in 10 months. Using medical marijuana through [facility] 01/14/2020 Angy Chase RN 01/14/2020 [...] entered Entered by Date resolved [facility] breastpump form completed and faxed to [facility] for pt. 07/23/2020 Lisset Gonzalez RN [...] dependence, uncomplicated 01/16/2019 01/14/2020 Tobacco use disorder 01/16/201908/ 023 Last Assessment & Plan: Strongly advised [...] amphedamines, marijuana on tox screen 07/31/18 at [facility] ED Bipolar 1 disorder 07/12/2017 [...] money to get more. Sometimes true 11/2022 [place] Depression Scale Answer Date Recorded [place] Depression Scale Total 11 05/17/2023 The thought [...] as of this encounter Progress Notes * [facility] Wire Drawing Machine Tender - 10/20/2023 9:41 AM EST Patient has been successfully enrolled to the [id number] Diabetes Management in program. Standard alarm settings have been set as follows: Singular glucose level > 200 Singular glucose level < 60 Patient has been advised to take blood sugar four times a day (fasting upon waking, and one hour after each meal). Patient has been oriented to remote patient monitoring, assisted with initial device set-up, and provided with instruction and education regarding the program. Patient understands that this monitoring should not be used as a replacement for emergency and/or urgent care. If patient experiences any urgent symptoms, they are aware to call office/balcony worker provider for additional instructions. In emergency situations, they will report directly to the ED for further evaluation. If you would like to customize the alert parameters and/or instructions for this patient, please let me know and we can have them changed. documented in this encounter Plan of Treatment Upcoming Encounters Date Type Department Care Team (Late st Contact Info) Description 10/26/2023 10:15 AM EST [facility] [place] [address] [place] [address] Summer Cartagena CRNP [address] [place] [id number] 10/27/2023 3:00 PM EST Office Visit Hand Bander Obstetrics Maternal Medicine, [place] [address] [place] [address] Cristino Garcia, DO [address] [place] [address] 10/27/2023 3:00 PM EST [facility] [place] [address] [place] [address] 11/02/2023 11:30 AM EST Office Visit Gynecology/Obstetrics [facility] [address] [place] [address] Shantelle Richmond CRNP [address] [place] [address] 11/06/2023 5:10 PM EST [facility] [address] [place] [address] [place] [address] [place] [address] 11/13/2023 9:00 AM EST Office Visit Gynecology/Obstetrics [facility] [address] [place] [address] Marcellus Lira MD [address] [place] [address] 11/14/2023 3:30 PM EST [facility] [address] [place] [address] Kassi Cole RDN [address] [place] [address] 11/15/2023 9:00 AM EST Office Visit Gynecology/Obstetrics [facility] [address] [place] [address] Marcellus Lira MD [address] [place] [address] 11/28/2023 9:00 AM EST Office Visit Gynecology/Obstetrics [facility] [address] [place] [address] Marcellus Lira MD [address] [place] [address] 12/06/2023 2:00 PM EST Office Visit Gynecology/Obstetrics [facility] [address] [place] [address] Shantelle Richmond CRNP [address] [place] [address] 12/11/2023 9:00 AM EDT Office Visit Gynecology/Obstetrics [facility] [address] [place] [address] Marcellus Lira MD [address] [place] [address] 12/21/2023 11:30 AM EDT Office Visit Gynecology/Obstetrics [facility] [address] [place] [address] Shantelle Richmond CRNP [address] [place] [address] Health Maintenance Due Date Last Done Comments [...] this encounter Medical Devices Implanted Type Area Funeral Workers Device Identifier Shelf Expiration Date Model / Serial / Lot Ring Triad [id number] - [id number] Implanted:Qty: 1 on 08/09/2016 by Suha Harding MD at OR [facility] N/A: Heart [employer] 08/31/2019 [id number] / [id number] / [id number] documented as of this encounter Visit Diagnoses Diagnosis Diet controlled gestational diabetes mellitus (GDM) in third trimester- Primary documented in this encounter Advance Directives Latest Code Status on File Code Status Date Activated Date Inactivated Comments Full Code 08/20/2020 5:17 AM 08/24/2020 7:56 PM Th is order reflects the patients wishes and were [...]
--- OUTSIDE RECORDS SUMMARY | 2023-11-08 22:13 | External Medical Summary | Summary of Care ---
Author Name Unknown Organization [facility] Address [address] [place] [address] Phone [phone] Care Team Providers Care Arabic Translator Name Role Phone Unavailable Primary Care Provider Unavailabl e Reason for Visit * Reason Onset Date Comments Referral 10/11/2023 Encounter Details Date Type Department Care Team (Late st Contact Info) Description 10/11/2023 Telephone Plastic Parts Fabricator Obstetrics Maternal Medicine, [place] [address], [place] [id number] [place], Nurse Plastic Parts Fabricator [facility] [address], [place] [phone] Referral Allergies Active Allergy Reactions Criticality Noted Date Comments Sulfamethoxazole-Trimetho prim Nausea/vomiting Medium 01/19/2018 Nausea when taken with keflex Doxycycline Nausea/vomiting Medium 09/10/2018 Cephalexin Nausea/vomiting Medium 01/19/2018 Nausea when taken with bactrim documented as of this encounter (statuses as of 10/17/2023) Medications Medication Sig Dispensed Refills Start Date [...] Active Additional Information Patient taking differently: 2 [place] Nasal DAILY PRN, Reported on 11/04/2022 Buprenorphine [...] daily while 1 Each 0 10/06/2023 Active [employer] Flex System w/Device Kit Use to test blood sugars 4 times daily (fasting, 1 hour after breakfast, lunch, and dinner) 1 Kit 0 10/11/2023 Active [employer] In Vitro Strip (Glucose Blood) Use to [...] 2.5 mgIndications:BLAKE (dyspnea on exertion),PHT (pulmonary hypertension) ([facility]),Mild persistent asthma with exacerbation 2.5 mg NEBULIZER Q4H PRN 09/01/2023 Active documented as of this encounter (statuses as of 10/17/2023) Active Problems Problem Noted Date Diagnosed Date Blood pressure elevated without history of HTN 1 11/07/2022 Food insecurity 08/14/2023 Overview: Per [facility] Protocol Supervision of high risk in [facility] 08/08/2023 Last Assessment & Plan: growth and fluid appropriate for gestational age. All visualized anatomy appears normal. BLAKE (dyspnea on exertion) 06/26/2023 Bipolar disease during 06/09/2023 Overview: Reports bipolar. Denies SI/HI. Obtained counseling through [facility]. Last Assessment & Plan: No [...] valvular surgery after delivery, and in a epxp-hk-[id number] basis after evaluating the particular disease process [...] in January 2023. 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 complicated by subutex maintenance, an tepartum 05/18/2023 [...] child born at 35 weeks. Was on [place] in previous pregnancies. Last Assessment & Plan: [...] patients who previously received 17P. Patient's primary PEARL STRINGER can coordinate therapy if desired. For patients [...] x 2, breech then ERLTCS. Last in 2020 at [facility]. Desires repeat with tubal at [facility]. Last Assessment & Plan: CONSIDERATIONS: Reviewed that [...] delivery at 36-37 weeks without amniocentesis per [employer]. Every effort should be made by patient s primary OB provider to obtain prior operative reports. As per [employer]'s 2010 practice [...] ripening or induction of labor. History of [place] (myocardial infarction) 07/27/2018 Overview: [...] as of this encounter (statuses as of 10/17/2023) Resolved Problems Problem Noted Date Diagnosed Date [...] in 10 months. Using medical marijuana through [facility] 01/14/2020 Angy Chase RN 01/14/2020 nutrition Due [...] Taken Date entered Entered by Date resolved [facility] breastpump form completed and faxed to [facility] for pt. 07/23/2020 Lisset Gonzalez RN [...] amphedamines, marijuana on tox screen 07/31/18 at [facility] ED Bipolar 1 disorder 07/12/2017 8 Attention [...] as of this encounter (statuses as of 10/17/2023) Immunizations Name Administration Dates Next Due COVID-19 [...] money to get more. Sometimes true 11/2022 [place] Depression Scale Answer Date Recorded [place] Depression Scale Total 11 05/17/2023 The thought [...] encounter Miscellaneous Notes * Telephone Encounter - Megan Cleaning OSA - 10/17/2023 2:24 PM EST Lvm for pt * Telephone Encounter - Dvein Velarde RN - 10/17/2023 10:10 AM EST Patient did not show for scheduled maternal medicine ROUTER SETTER consult on 10/16/2023. Please reschedule. Thank you. * Telephone Encounter - Megan Cleaning OSA - 10/12/2023 8:34 AM EST Spoke with pt appts made * Telephone Encounter - Angy Rivera MED ASSIST - 10/11/2023 3:10 PM EST Estimated Date of Delivery: 12/24/23 Please schedule for 45 MINUTE ADAPT WITH FITTING SUPERVISOR, in time frame of within 1 week at location [facility] with the indication of GDM. Please schedule growth (short scan) in 3-4 weeks. Referring Provider: Lesa Degroot PA-C documented in this encounter Plan of Treatment Upcoming Encounters Date Type Department Care Team (Late st Contact Info) Description 10/18/2023 1:15 PM EST Appointment Cardiac Studies [facility], [place] [address] [facility] [place] [address] 10/19/2023 9:00 AM EST Telemedicine Nutrition, [facility] [address] [place] [address] Kassi Cole RDN [address] [place] [address] 10/20/2023 9:30 AM EST Office Visit Gynecology/Obstetrics [facility] [address] [place], [place] [address] Sharron Robertson CRNP [address] [place] [address] 10/26/2023 10:15 AM EST Office Visit Cardiology [facility], [place] [address] [place] [address] Summer Cartagena CRNP [address] [place] [id number] 10/27/2023 3:00 PM EST Office Visit Plastic Parts Fabricator Obstetrics Maternal Medicine, [place] [address] [place] [address] Cristino Garcia, [address] [place] [address] 10/27/2023 3:00 PM EST Imaging Radiology [facility], [place] [address] [place] [address] 11/02/2023 11:30 AM EST Office Visit Gynecology/Obstetrics [facility] [address] [place] [facility] [place] [address] Shantelle Richmond CRNP [address] [place] [address] 11/06/2023 5:10 PM EST Anticoagulation Pharmacy, [place] [address] [place] [address] [facility] [address] [place] [address] 11/13/2023 9:00 AM EST Office Visit Gynecology/Obstetrics [facility] [address] [place] [address] Marcellus Lira MD [address] [place] [address] 11/15/2023 9:00 AM EST Office Visit Gynecology/Obstetrics [facility] [address] [place] [address] Marcellus Lira MD [address] [place] [address] 11/28/2023 9:00 AM EST Office Visit Gynecology/Obstetrics [facility] [address] [place] [address] Marcellus Lira MD [address] [place] [address] 12/06/2023 2:00 PM EST Office Visit Gynecology/Obstetrics [facility] [address] [place] [address] Shantelle Richmond CRNP [address] [place] [address] 12/11/2023 9:00 AM EDT Office Visit Gynecology/Obstetrics [facility] [address] [place] [address] Marcellus Lira MD [address] [place] [address] 12/21/2023 11:30 AM EDT Office Visit Gynecology/Obstetrics [facility] [address] [place] [address] Shantelle Richmond CRNP [address] [place] [address] Health Maintenance Due Date Last Done Comments Pneumococcal Vaccine: Pediatrics (0 to 5 Years) and At-Risk Patients (6 to 64 Years) (2 - PCV) 10/01/2020 10/01/2019, 02/11/2014 COVID-19 Vaccine ( season) 2023 03/12/2022, 02/10/2022 Depression Screening 11/17/2023 [...] this encounter Medical Devices Implanted Type Area Assembly Mechanic Device Identifier Shelf Expiration Date Model / Serial / Lot Ring Triad [id number] - [id number] Implanted:Qty: 1 on 08/09/2016 by Suha Harding MD at OR [facility] N/A: Heart [employer] 08/31/2019 [id number] / [id number] / [id number] documented as of this encounter Advance Directives [...]
--- OUTSIDE RECORDS SUMMARY | 2023-11-08 22:13 | External Medical Summary | Summary of Care ---
Author Name Unknown Organization [facility] Address [address] [place] [address] Phone [phone] Care Team Providers Care Retail Store Assistant Name Role Phone Unavailable Primary Care Provider Unavailabl e Encounter Details Date Type Department Care Team (Late st Contact Info) Description 10/11/2023 Telephone Gynecology/Obstetrics [facility] [address], [place] [phone] Lesa Degroot PA-C [address] [place] [address] Allergies Active Allergy Reactions Criticality Noted Date Comments Sulfamethoxazole-Trimetho prim Nausea/vomiting Medium 01/19/2018 Nausea when taken with keflex Doxycycline Nausea/vomiting Medium 09/10/2018 Cephalexin Nausea/vomiting Medium 01/19/2018 Nausea when taken with bactrim documented as of this encounter (statuses as of 10/11/2023) Medications Medication Sig Dispensed Refills Start Date [...] Active Additional Information Patient taking differently: 2 [place] Nasal DAILY PRN, Reported on 11/04/2022 Buprenorphine [...] daily while 1 Each 0 10/06/2023 Active [employer] Flex System w/Device Kit Use to test blood sugars 4 times daily (fasting, 1 hour after breakfast, lunch, and dinner) 1 Kit 0 10/11/2023 Active [employer] In Vitro Strip (Glucose Blood) Use to [...] (dyspnea on exertion),PHT (pulmonary hypertension) ([facility]),Mild persistent asthma with exacerbation 2.5 mg NEBULIZER Q4H PRN 09/01/2023 Active documented as of this encounter (statuses as of 10/11/2023) Active Problems Problem Noted Date Diagnosed Date Blood pressure elevated without history of HTN 1 11/07/2022 Food insecurity 08/14/2023 Overview: Per [facility] Protocol Supervision of high [facility] in [facility] 08/08/2023 Last Assessment & Plan: growth and fluid appropriate for gestational age. All visualized anatomy appears normal. BLAKE (dyspnea on exertion) 06/26/2023 Bipolar disease during 06/09/2023 Overview: Reports bipolar. Denies SI/HI. Obtained counseling through [facility]. Last Assessment & Plan: No [...] valvular surgery after delivery, and in a [id number]-hc-[id number] basis after evaluating the particular disease process [...] in January 2023. 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 complicated by subutex maintenance, an tepartum 05/18/2023 Overview: [place]. Taking 16 mg daily Subutex. Is [...] patients who previously received 17P. Patient's primary METAL TEMPLATE MAKER can coordinate therapy if desired. For patients [...] ERLTCS. [place] [facility] Desires repeat with tubal at [facility]. Last Assessment & Plan: CONSIDERATIONS: Reviewed that [...] delivery at 36-37 weeks without amniocentesis per [employer]. Every effort should be made by patient s primary OB provider to obtain prior operative reports. As per [employer]'s 2010 practice [...] ripening or induction of labor. History of [place] (myocardial infarction) 07/27/2018 Overview: [...] as of this encounter (statuses as of 10/11/2023) Resolved Problems Problem Noted Date Diagnosed Date [...] in 10 months. [facility] 01/14/2020 nAgy Chase RN 01/14/2020 nutrition Due date letter [...] Taken Date entered Entered by Date resolved [facility] breastpump form completed and faxed to [facility] for pt. 07/23/2020 Lisset Gonzalez [...] amphedamines, marijuana on tox screen 07/31/18 at [facility] ED Bipolar 1 disorder 07/12/2017 [...] as of this encounter (statuses as of 10/11/2023) Immunizations Name Administration Dates Next Due COVID-19 [...] money to get more. Sometimes true 11/2022 [place] Depression Scale Answer Date Recorded [place] Depression Scale Total 11 05/17/2023 The thought [...] encounter Miscellaneous Notes * Telephone Encounter - Lesa Degroot PA-C - 10/11/2023 2:38 PM EST Addressed in separate encounter. Closing encounter. * Telephone Encounter - Angy Chase RN - 10/11/2023 1:30 PM EST Pt is calling to discuss her glucose levels. Advised that she is considered a GDM but I would need to discuss with Lesa and call her back> pt agreeable. documented in this encounter Plan of Treatment Upcoming Encounters Date Type Department Care Team (Late st Contact Info) Description 10/18/2023 1:15 PM EST Appointment Cardiac Studies [facility] [place] [address] [place] [address] 10/20/2023 9:30 AM EST Office Visit Gynecology/Obstetrics [facility] [address] [facility] [place] [address] Sharron Robertson CRNP [address] [place] [facility] [place] [address] 10/26/2023 10:15 AM EST Office Visit Cardiology [facility] [place] [address] [place] [address] Summer Cartagena CRNP [address] [place] [address] 11/02/2023 11:30 AM EST Office Visit Gynecology/Obstetrics [facility] [address] [facility] [address] Shantelle Richmond CRNP [address] [place] [address] 11/06/2023 5:10 PM EST Anticoagulation [facility] [place] [address] [facility], [place] [address] [facility] [address] [place] [facility] [place] [address] 11/13/2023 9:00 AM EST Office Visit Gynecology/Obstetrics [facility] [address] [place] [address] Marcellus Lira MD [address] [place] [address] 11/15/2023 9:00 AM EST Office Visit Gynecology/Obstetrics [facility] [address] [place] [address] Marcellus Lira MD [address] [place] [address] 11/28/2023 9:00 AM EST Office Visit Gynecology/Obstetrics [facility] [address] [place] [address] Marcellus Lira MD [address] [place] [address] 12/06/2023 2:00 PM EST Office Visit Gynecology/Obstetrics [facility] [address] [place] [address] Shantelle Richmond CRNP [address] [place] [address] 12/11/2023 9:00 AM EDT Office Visit Gynecology/Obstetrics [facility] [address] [place] [address] Marcellus Lira MD [address] [place] [address] 12/21/2023 11:30 AM EDT Office Visit Gynecology/Obstetrics [facility] [address] [place] [address] BackerShantelle CRNP [address] [place] [address] Health Maintenance Due Date Last Done Comments [...] this encounter Medical Devices Implanted Type Area Director Corporate Sales Device Identifier Shelf Expiration Date Model / Serial / Lot Ring Triad [id number] - [id number] Implanted:Qty: 1 on 08/09/2016 by Suha Harding [place] [facility] N/A: Heart [employer] 08/31/2019 [id number] / [id number] / [id number] documented as of this encounter Advance Directives [...]
--- OUTSIDE RECORDS SUMMARY | 2023-11-08 22:13 | External Medical Summary | Summary of Care ---
Author Name Unknown Organization [facility] Address [address] [place] [facility] [place] [address] Phone [phone] Care Team Providers Care Seasoner Hand Name Role Phone Unavailable Primary Care Provider Unavailabl e Reason for Referral * Evaluate & Treat - Unlimited Visits (Within 10 days (routine)) - Pending Review Specialty Diagnoses / Procedures Referred By Karlene valle Referred To Contact Ceo / Nutrition Services Diagnoses Gestational diabetes mellitus (GDM) in third trimester, gestational diabetes method of control unspecified Leatha Degroot PA-C [address] [place] [address] Referral ID Status Reason Start Date Expiration Date Visits Requested Visits Authorized [id number] Pending Review Specialty Services Required 10/11/2023 999 999 Question Answer Is the patient ? Yes Referral Priority Within 10 days (routine) Where should this appointment be scheduled? [facility] Comments This referral is for Diabetes Self-Management Training (DSMT) by a recognized [place] [employer] (ADA) early childhood special educator: Nurse (RN), Registered Dietitian Windows Mobile Developer (RDN), and/or Diabetes Medical Nutrition Therapy (MNT) Management (dietitian only). Diabetes educators are responsible for assessing the participant's diabetes education needs, and providing diabetes self-management training in accordance with the standards set by the ADA for DSMT. Any adjustment in diabetes therapy will be made within the guidelines of standards of practice and [facility] approved policies and procedures. I understand that the early childhood special educator will keep me informed. Areas of Education: Pathophysiology Nutrition Physical Activity Medications Monitoring Acute Complications Chronic Complications Psychosocial Management Promote Health/Behavior Change Participant will be offered 1:1 education training if there is a lack of classes available within 2 months. Providers can also order 1:1 training if indicated for participant for the following reasons: 1:1 Training for Insulin Initiation Participant Inappropriate for Class Setting By my electronic signature, I understand that my patient will be offered the comprehensive ADA content area above unless deemed not appropriate of I specify otherwise here: * Evaluate & Treat - Unlimited Visits (Within 10 days (routine)) - Pending Review Specialty Diagnoses / Procedures Referred By Karlene valle Referred To Contact Obstetrics/Gynecology / Maternal Medicine Diagnoses Gestational diabetes mellitus (GDM) in third trimester, gestational diabetes method of control unspecified Leatha Degroot PA-C [address] [place] [address] Referral ID Status Reason Start Date Expiration Date Visits Requested Visits Authorized [id number] Pending Review Specialty Services Required 10/11/[phone] Question Answer Referral Priority Within 10 days (routine) Has the patient had a viability scan? Yes Date performed 05/04/2023 Location performed Radiology Reason for referral Diabetes Diabetes type Gestational Where should this appointment be scheduled? [facility] Comments /Para: LMP: No LMP recorded. Patient is . ANYA: 12/24/2023, by Ultrasound Pre-Gravid BMI: Could not be calculated Established patient, additional referral for GDM diagnosis. Reason for Visit * Reason Onset Date Comments Test Results 10/05/2023 Encounter Details Date Type Department Care Team (Late st Contact Info) Description 10/05/2023 Telephone Gynecology/Obstetrics [facility] [address] [place] [address] Leatha Degroot PA-C [address] [place] [address] Test Results Allergies Active Allergy Reactions Criticality Noted Date [...] Active Additional Information Patient taking differently: 2 Gordon Nasal DAILY PRN, Reported on 11/04/2022 Buprenorphine [...] before eating.. 30 Capsule 1 10/04/2023 Active App [employer] Flex System w/Device Kit Use to test blood sugars 4 times daily (fasting, 1 hour after breakfast, lunch, and dinner) 1 Kit 0 10/11/2023 Active App [employer] In Vitro Strip (Glucose Blood) Use to test blood sugars 4 times daily (fasting, 1 hour after breakfast, lunch, and dinner) 125 Strip 6 10/11/2023 Active [employer] (formerly [employer]) DelFlowMetric Lancets 30G Use to test blood sugars [...] (dyspnea on exertion),PHT (pulmonary hypertension) ([facility]),Mild persistent asthma with exacerbation 2.5 mg NEBULIZER Q4H PRN 09/01/2023 Active documented as of this encounter (statuses as of 10/11/2023) Active Problems Problem Noted Date Diagnosed Date Blood pressure elevated without history of HTN 1 11/07/2022 Food insecurity 08/14/2023 Overview: Per [facility] Protocol Supervision of high risk in second tri mester 08/08/2023 Last Assessment & Plan: growth and fluid appropriate for gestational age. All visualized anatomy appears normal. BLAKE (dyspnea on exertion) 06/26/2023 Bipolar disease during 06/09/2023 Overview: Reports bipolar. Denies SI/HI. Obtained counseling through [facility]. Last Assessment & Plan: No meds, no concerns reported today. 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 S/p valve repair and denies any further issues. Also reports history of IA. She had a negative heart catheterization at [...] valvular surgery after delivery, and in a abqk-zi-hivr basis after evaluating the particular disease process [...] in January 2023. 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 complicated by subutex maintenance, an tepartum 05/18/2023 [...] child born at 35 weeks. Was on [place] in previous pregnancies. Last Assessment & Plan: [...] patients who previously received 17P. Patient's primary STUDIO ASSISTANT can coordinate therapy if desired. For patients [...] [place]. Last Assessment & Plan: CONSIDERATIONS: Reviewed that [...] delivery at 36-37 weeks without amniocentesis per [place] [employer]. Every effort should be made by patient s primary OB provider to obtain prior operative reports. As per [place] [employer]'s 2010 practice [...] ripening or induction of labor. History of IA (myocardial infarction) 07/27/2018 Overview: Age 27, s/p [...] in 10 months. Using medical marijuana through [employer] 01/14/2020 Angy Chase RN 01/14/2020 nutrition Due [...] Taken Date entered Entered by Date resolved [facility] breastpump form completed and faxed to [facility] for pt. 07/23/2020 Lisset Gonzalez RN 07/23/2020 [...] 10/06/2020 Overview: Delivered at 35w0d Previously on [place] Stopped at 36w Opioid dependence, uncomplicated 01/16/2019 [...] screen 07/31/18 at [facility] ED Bipolar 1 disorder 07/12/2017 [...] money to get more. Sometimes true 11/2022 [place] Depression Scale Answer Date Recorded [place] Depression Scale Total 11 05/17/2023 The thought [...] encounter Miscellaneous Notes * Telephone Encounter - Bri Navarro LPN - 10/11/2023 3:25 PM EST Phone call from pt. Pt aware and verbalizes understanding Bri Navarro LPN 10/11/2023 3:25 PM * Telephone Encounter - Angy Chase RN - 10/11/2023 2:51 PM EST left message for patient to call office * Addendum Note - Leatha Degroot PA-C - 10/11/2023 2:38 PM ESTAddended by: LEATHA DEGROOT on: 10/11/2023 02:38 PM Modules accepted: Orders * Telephone Encounter - Leatha Degroot PA-C - 10/11/2023 12:50 PM EST Unfortunately she failed 3 hour gtt which indicates she has GDM. I placed referral back to [facility] for her to be seen for this indications. They will reach out to her as they need to schedule her with nutrition and [employer] team. Testing supplies have been sent to pharmacy. Needs to start testing BG 4 times a day. One fasting level and 3 additional times, 1 hour after each meal. She should track by writing them down. Please let her know. Leatha Degroot PA-C * Telephone Encounter - Mercedez Valente RN - 10/05/2023 9:31 AM EST Patient made aware of message below. Patient verbalized understanding to all. Sent to scheduling toassist with this. * Telephone Encounter - Leatha Degroot PA-C - 10/05/2023 8:57 AM EST She did not pass 1 hour testing. Need to complete 3 hour screening. This time with fasting. Please let her know and provide instructions on completing this test. documented in this encounter Plan of Treatment Upcoming Encounters Date Type Department Care Team (Late st Contact Info) Description 10/18/2023 1:15 PM EST Appointment Cardiac Studies [facility] [address] [address] 10/20/2023 9:30 AM EST Office Visit Gynecology/Obstetrics [facility] [address] [place] [address] Sharron Robertson CRNP [address] [place] [address] 10/26/2023 10:15 AM EST Office Visit Cardiology [facility] [address] [place] [address] Summer Cartagena CRNP [address] [place] [facility] [place] [address] 11/02/2023 11:30 AM EST Office Visit Gynecology/Obstetrics [facility] [address] [place] [address] Shantelle Richmond CRNP [address] [place] [address] 11/06/2023 5:10 PM EST Anticoagulation [facility] [address] [place] [address] [facility] [address] [place] [address] 11/13/2023 9:00 AM EST Office Visit Gynecology/Obstetrics [facility] [address] [place] [address] Marcellus Lira MD [address] [place] [address] 11/15/2023 9:00 AM EST Office Visit Gynecology/Obstetrics [facility] [address] [place] [address] Marcellus Lira MD [address] [place] [address] 11/28/2023 9:00 AM EST Office Visit Gynecology/Obstetrics [facility] [address] [place] [address] Marcellus Lira MD [address] [place] [address] 12/06/2023 2:00 PM EST Office Visit Gynecology/Obstetrics [facility] [address] [place] [address] Shantelle Richmond CRNP [address] [place] [address] 12/11/2023 9:00 AM EDT Office Visit Gynecology/Obstetrics [facility] [address] [place] [address] Marcellus Lira MD [address] [place] [address] 12/21/2023 11:30 AM EDT Office Visit Gynecology/Obstetrics [facility] [address] [place] [address] Shantelle Richmond CRNP [address] [place] [address] Scheduled Orders Name Type Priority Associated Diagnoses Orde r Schedule MFM US MATERNAL 1ST FETUS Medical Imaging Routine Gestational diabetes mellitus (GDM) in third trimester, gestational diabetes method of control unspecified Expected: 10/11/2023, Expires: 11/11/2024 Scheduled Referrals Name Type Priority Associated Diagnoses Orde r Schedule MATERNAL MEDICINE REFERRAL OP Referral Within 10 days (routine) Gestational diabetes mellitus (GDM) in third trimester, gestational diabetes method of control unspecified Ordered: 10/11/2023 DIABETES MANAGEMENT EDUCATION (ADA) REFERRAL Referral Within 10 days (routine) Gestational diabetes mellitus (GDM) in third trimester, gestational diabetes method of control unspecified Ordered: 10/11/2023 Health Maintenance Due Date Last Done Comments Pneumococcal Vaccine: Pediatrics (0 to 5 Years) and At-Risk Patients (6 to 64 Years) (2 - PCV) 10/01/2020 10/01/2019, 02/11/2014 COVID-19 Vaccine (2022- season) 2023 03/12/2022, 02/10/2022 Depression Screening 11/17/2023 [...] this encounter Medical Devices Implanted Type Area Mining Support Worker Device Identifier Shelf Expiration Date Model / Serial / Lot Ring Triad [id number] - [id number] Implanted:Qty: 1 on 08/09/2016 by Suha Harding MD at OR [facility] N/A: Heart [employer] 08/31/2019 [id number] / [id number] / [id number] documented as of this encounter Visit Diagnoses Diagnosis Abnormal glucose affecting - Primary Gestational diabetes mellitus (GDM) in third trimester, gestational diabetes method of control unspecified documented in this encounter Advance Directives Latest [...]
--- OUTSIDE RECORDS SUMMARY | 2023-11-08 22:13 | External Medical Summary | Summary of Care ---
Author Name Unknown Organization [facility] Address [address] [place] [address] Phone [phone] Care Team Providers Care Historiography Professor Name Role Phone Unavailable Primary Care Provider Unavailabl e Reason for Visit * Reason Onset Date Comments Advice 07/13/2023 Encounter Details Date Type Department Care Team (Late st Contact Info) Description 07/13/2023 Telephone Gynecology/Obstetrics [facility] [address] [place] [address] Services, Scheduling [address] [place] [address] Advice Allergies Active Allergy Reactions Criticality Noted Date Comments Sulfamethoxazole-Trimetho prim Nausea/vomiting Medium 01/19/2018 Nausea when taken with keflex Doxycycline Nausea/vomiting Medium 09/10/2018 Cephalexin Nausea/vomiting Medium 01/19/2018 Nausea when taken with bactrim documented as of this encounter (statuses as of 10/12/2023) Medications Medication Sig Dispensed Refills Start Date End Date Status albuterol sulfate (PROVENTIL) (2.5 MG/3ML) 0.083% nebulizer solutionIndications:B ronchitis, complicated Inhale 1 Vial via nebulizer every 4 hours as needed for Wheezing. 120 Vial 11 06/13/2018 Active Nebulizers (NEBULIZER COMPRESSOR) MISCIndications:Bronc hitis, complicated Inhale via nebulizer. Use as directed. 1 Each 1 06/13/2018 Active albuterol HFA (VENTOLIN HFA) 108 (90 BASE) MCG/ACT inhalerIndications:[place] persistent asthma with acute exacerbation Inhale 2 Puffs by mouth every 4 hours as needed for Shortness of Breath. 1 Inhaler 1 01/16/2019 Active Fluticasone Propionate 50 MCG/ACT Nasal Suspension (Flonase)Indications: Other non-recurrent acute nonsuppurative otitis media of left ear,Post-nasal drip SPRAY 2 SPRAYS INTO EACH NOSTRIL EVERY DAY 48 mL 3 10/07/2022 Active Additional Information Patient taking differently: 2 [place] Nasal DAILY PRN, Reported on 11/04/2022 Buprenorphine [...] Active valACYclovir HCl 500 MG Oral Tablet (Valtrex)Indications: Genital herpes simplex, unspecified site Take 1 Tablet by mouth in the morning. 30 Tablet 3 07/06/2023 Active Hospital, Clinic, or Other Facility Administered [...] as of this encounter (statuses as of 10/12/2023) Active Problems Problem Noted Date Diagnosed Date Blood pressure elevated without history of HTN 1 11/07/2022 Food insecurity 08/14/2023 Overview: Per [employer] [facility] Protocol Supervision of [facility] 08/08/2023 Last Assessment & Plan: growth and fluid appropriate for gestational age. All visualized anatomy appears normal. BLAKE (dyspnea on exertion) 06/26/2023 Bipolar disease during 06/09/2023 Overview: Reports bipolar. Denies SI/HI. Obtained counseling through [facility]. Last Assessment & Plan: No meds, no concerns reported today. 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 S/p valve repair and denies any further issues. Also reports history of MO. She had a negative heart catheterization at [...] valvular surgery after delivery, and in a lzuh-wf-poob basis after evaluating the particular disease process [...] in January 2023. 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 complicated by subutex maintenance, an tepartum 05/18/2023 [...] patients who previously received 17P. Patient's primary IT TECHNICAL SUPPORT SPECIALIST can coordinate therapy if desired. For [...] breech then ERLTCS. Last in 2019 at [facility]. Desires repeat with tubal at [facility]. Last Assessment & Plan: CONSIDERATIONS: Reviewed that [...] delivery at 36-37 weeks without amniocentesis per [employer] [employer]. Every effort should be made by patient s primary OB provider to obtain prior operative reports. As per [place] [employer]'s 2010 practice [...] ripening or induction of labor. History of MO (myocardial infarction) 07/27/2018 Overview: Age 27, s/p [...] as of this encounter (statuses as of 10/12/2023) Resolved Problems Problem Noted Date Diagnosed Date [...] in 10 months. Using medical marijuana through [employer] 01/14/2020 Angy Chase RN 01/14/2020 nutrition [...] Entered by Date resolved [facility] breastpump form completed and faxed to [facility] for pt. 07/23/2020 Lisset Gonzalez RN [...] amphedamines, marijuana on tox screen 07/31/18 at [facility] ED Bipolar 1 disorder 07/12/2017 8 Attention [...] as of this encounter (statuses as of 10/12/2023) Immunizations Name Administration Dates Next Due COVID-19 [...] money to get more. Sometimes true 11/2022 [place] Depression Scale Answer Date Recorded [place] Depression Scale Total 11 05/17/2023 The thought [...] Telephone Encounter - Soniya Cotto LPN - 07/13/2023 11:50 AM EDT Patient is going to fax a copy of her echo to place in her chart. * Telephone Encounter - Soniya Cotto LPN - 07/13/2023 11:03 AM EDT left message for patient to call office * Telephone Encounter - Dora Anders OSA - 07/13/2023 10:51 AM EDT Patient wants a call back from [facility] nurse because MFM isn't responded to her and she is upset. documented in this encounter Plan of Treatment Upcoming Encounters Date Type Department Care Team (Late st Contact Info) Description 10/16/2023 1:45 PM EST Telemedicine Hospice Clinical Manager Obstetric MFM [facility] [address] [place] [address] Aleena Shafer CRNP [address] [place] [address] 10/18/2023 1:15 PM EST Appointment [facility] [place] [address] [place] [address] 10/19/2023 9:00 AM EST Telemedicine Nutrition, [facility] [address] [facility] [place] [address] Kassi Cole, RDN [address] [place] [address] 10/20/2023 9:30 AM EST Office Visit [facility]necology[facility]st[facility] [address] [facility] [place] [address] Sharron Robertson CRNP [address] [place] [address] 10/26/2023 10:15 AM EST Office Visit [facility]iology [facility], [address] [address] Summer Cartagena CRNP [address] [place] [id number] 10/27/2023 3:00 PM EST Office Visit Hospice Clinical Manager Obstetrics [facility], [place] [address] [place] [address] Cristino Garcia, [address] [place] [address] 10/27/2023 3:00 PM EST Imaging Radiology [facility] [place] [address] [place] [address] 11/02/2023 11:30 AM EST Office Visit Gynecology/Obstetrics [facility] [address] [facility] [place] [address] Shantelle Richmond CRNP [address] [place] [address] 11/06/2023 5:10 PM EST Anticoagulation Pharmacy[address], [place] [address] [facility] [address] [facility], [place] [address] 11/13/2023 9:00 AM EST Office Visit Gynecology/Obstetrics [facility] [address] [place] [address] Marcellus Lira MD [address] [place] [address] 11/15/2023 9:00 AM EST Office Visit Gynecology/Obstetrics [facility] [address] [place] [address] Marcellus Lira MD [address] [place] [address] 11/28/2023 9:00 AM EST Office Visit Gynecology/[facility]stetrics [facility] [address] [place] [address] Marcellus Lira MD [address] [place] [address] 12/06/2023 2:00 PM EST Office Visit Gynecology/[facility]stetrics [facility] [address] [place] [address] Shantelle Richmond CRNP [address] [place] [address] 12/11/2023 9:00 AM EDT Office Visit Gynecology/[facility]stetrics [facility] [address] [place] [address] Marcellus Lira MD [address] [place] [address] 12/21/2023 11:30 AM EDT Office Visit Gynecology/Obstetrics [facility] [address] [place] [address] Backer, Shantelle NICKOLAS Siddiqui [address] [place] [address] Health Maintenance Due Date Last Done Comments [...] this encounter Medical Devices Implanted Type Area Security Specialist Device Identifier Shelf Expiration Date Model / Serial / Lot Ring [employer] [id number] - [id number] Implanted:Qty: 1 on 08/09/2016 by Suha Harding MD at OR [facility] N/A: Heart [employer] 08/31/2019 [id number] / [id number] / [id number] documented as of this encounter Advance Directives [...]
--- OUTSIDE RECORDS SUMMARY | 2023-11-08 22:13 | External Medical Summary | Summary of Care ---
Author Name Unknown Organization [facility] Address [address] [place] [address] Phone [phone] Care Team Providers Care Neurological Surgeon Name Role Phone Unavailable Primary Care Provider Unavailabl e Reason for Visit * Reason Comments DSMT INITIAL * Evaluate & Treat - Unlimited Visits (Within 10 days (routine)) - Pending Review Specialty Diagnoses / Procedures Referred By Karlene valle Referred To Contact Talent Acquisition Partner / Nutrition Services Diagnoses Gestational diabetes mellitus (GDM) in third trimester, gestational diabetes method of control unspecified Lesa Degroot PA-C [address] [place] [address] Referral ID Status Reason Start Date Expiration Date Visits Requested Visits Authorized [id number] Pending Review Specialty Services Required 10/11/[phone] Encounter Details Date Type Department Care Team (Late st Contact Info) Description 10/19/2023 9:00 AM EST [facility] Unique [facility] [address] [place] [address] Kassi Cole RDN [address] [place] [address] Diet controlled gestational diabetes mellitus (GDM) in third trimester*; Dietary counseling and surveillance; Gestational diabetes mellitus (GDM) in third trimester, gestational diabetes method of control unspecified [O24.419] Allergies Active Allergy Reactions Criticality Noted Date [...] Active Additional Information Patient taking differently: 2 [place] Nasal DAILY PRN, Reported on 11/04/2022 Buprenorphine [...] daily while 1 Each 0 10/06/2023 Active Nimble TV Flex System w/Device Kit Use to test blood sugars 4 times daily (fasting, 1 hour after breakfast, lunch, and dinner) 1 Kit 0 10/11/2023 Active Nimble TV In Vitro Strip (Glucose Blood) Use to test blood sugars 4 times daily (fasting, 1 hour after breakfast, lunch, and dinner) 125 Strip 6 10/11/2023 Active VouchAR Delica Lancets 30G Use to test blood [...] 2.5 mgIndications:BLAKE (dyspnea on exertion),PHT (pulmonary hypertension) ([facility]),Mild persistent asthma with exacerbation 2.5 [...] Pharmacy Protocol Supervision of high risk in [facility] 08/08/2023 Last Assessment & Plan: growth and fluid appropriate for gestational age. All visualized anatomy appears normal. BLAKE (dyspnea on exertion) 06/26/2023 Bipolar disease during 06/09/2023 Overview: Reports bipolar. Denies SI/HI. Obtained counseling through [facility]. Last Assessment & Plan: No meds, [...] valvular surgery after delivery, and in a [id number] basis after evaluating the particular disease process [...] in January 2023. She reports that her chip unloader said she had PH, but that they [...] her most recent echo on file from 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 complicated by subutex maintenance, an tepartum 05/18/2023 [...] patients who previously received 17P. Patient's primary AIR BAG BUILDER can coordinate therapy if desired. For patients [...] breech then ERLTCS. Last in 2019 at [facility]. Desires repeat with tubal at [facility]. Last Assessment & Plan: CONSIDERATIONS: Reviewed [...] delivery at 36-37 weeks without amniocentesis per [employer]. Every effort should be made by patient s primary OB provider to obtain prior operative reports. As per [employer]'s 2010 practice [...] in 10 months. Using medical marijuana through [employer] family med 01/14/2020 Angy Chase RN 01/14/2020 [...] Taken Date entered Entered by Date resolved [facility] breastpump form completed and faxed to [facility] for pt. 07/23/2020 Lisset Gonzalez [...] 10/06/2020 Overview: Delivered at 35w0d Previously on [place] Stopped at 36w Opioid dependence, uncomplicated 01/16/2019 [...] on tox screen 07/31/18 at [facility] ED Bipolar 1 disorder 07/12/2017 [...] money to get more. Sometimes true 11/2022 [place] Depression Scale Answer Date Recorded [place] Depression Scale Total 11 05/17/2023 The thought [...] Sign Reading Time Taken Comments Blood Pressure - - Pulse - - Temperature - - Respiratory Rate - - Oxygen Saturation - - Inhaled Oxygen Concentration - - Weight 82.5 kg (181 lb 14.1 oz) 024 10:17 AM EST Height 166.7 cm (5' 5.63") 10/19/2023 1 0:17 AM EST Body Mass Index 29.69 10/19/2023 10:17 AM EST documented in this encounter Functional [...] No 10/27/2016 documented as of this encounter Patient Instructions * Patient Instructions* Kassi Cole RDN - 10/19/2023 9:42 AM EST Participant will eat consistent meals and snacks throughout the day (2-3 hours apart) and consume 30-45 grams of CHO's for meals, 15-30 grams for snacks. documented in this encounter Progress Notes * Kassi Cole RDN - 10/19/2023 9:05 AM EST DIABETES SELF-MANAGEMENT TRAINING/INITIAL NOTE Name: Nancy Hernandez Date: 10/19/2023 Patient location: HOME. I was not in a hospital or clinic location. After connecting through Flite, patient was verified with two unique identifiers. Patient (or authorized legal exhibit display representative) was then informed that this was a Telemedicine visit and being conducted confidentially over secure lines. Methods to assure confidentiality were taken. Patient acknowledged consent and understanding of privacy and security of the Telemedicine visit. The patient agreed to participate. Last order of DIABETES MANAGEMENT EDUCATION (ADA) REFERRAL was found on 10/11/2023 from Telephone on10/05/2023 Last order of CLINICAL NUTRITION AND DIABETES EDUCATION ANNUAL RENEWAL was found on 10/06/2022 from Telephone on 10/06/2022 No order of PEDIATRIC DIABETES MANAGEMENT EDUCATION (ADA) REFERRAL OP is found. ADA referral in place? Yes Participant scheduled for 1:1 training due to lack of classes scheduled within 2 months of appointment. What diabetes concerns and/or barriers to care would you like to discuss in your appointment: none verbalizes In your words, what is diabetes? asked/not answered Do you know the risks of uncontrolled diabetes? Asked/Not Answered Do you believe that diabetes can be controlled? Yes Are you ready to make small changes to help with diabetes self-management: Yes What type of diabetes do you have? Gestational Diabetes Mellitus: Are you aware of the post- glucose screening recommendations? some Diabetes diagnosis year: 2023 Do you have a family history of diabetes? Yes Have you had any previous diabetes education? No Support systems: Spouse Barriers to care: None Special Needs: None Psychosocial Screening: Lately have you been feeling down, depressed or hopeless most of the day? No How Do You Manage Stress? Seeing a therapist/counselor Going stress Food Insecurity: Within the past 12 months, I worried whether our food would run out before we got money to buy more. No Within the past 12 months, the food we bought just did not last and we did not have money to buy more. No Sleep Health: Addressed - How many hours are you sleeping during the night? 6 but not consequentially Do you have difficulty falling or staying asleep? Yes, falling asleep Do you snore? No Are you waking up during the night with symptoms of low glucose levels (shaky, sweaty, nightmares)?No Are you waking up during the night to urinate frequently? Yes Diabetes Medications: None Monitoring blood glucose, interpreting and using results Results for orders placed or performed in visit on 08/07/21 HEMOGLOBIN A1C Result Value Ref Range Hemoglobin A1C 5.1 4.0 - 5.6 % Estimated Average Glucose 100 <126 mg/dL *Note: Due to a large number of results and/or encounters for the requested time period, some results have not been displayed. A complete set of results can be found in Results Review. Self-Monitoring Blood Glucose Source of Information: Participant verbally reviewed from memory FBS 111, usually below 95 per participant Post prandial 115, 120, 102, below 140 Hypoglycemia?: Yes, participant has had 1 episode in past 1 week. Treats hypoglycemia by: JAMIE matos Diet: Describes typical diet history/24-hour recall Breakfast: 8 PM yogurt, raspberries or toast, hot tea with Splenda Drinks: water, Gatorade zero, hot tea-80 ounces daily Meal pattern and meal choices vary per participant: 6:30-7:30 AM apple or toast 11-12 PM Sun Chips or yogurt parfait, water 2 AM grilled cheese or salad (at work) or chicken or shrimp 7:15 AM oatmeal Sleeps at 9 or 11:30 depending on child Restaurant meals: once every couple weeks Weight management review: Wt Readings from Last 6 Encounters: 10/19/23 82.5 kg (181 lb 14.1 oz) 10/05/23 82.5 kg (181 lb 14.1 oz) 10/04/23 83.5 kg (184 lb) 09/18/23 81.7 kg (180 lb 3.2 oz) 09/13/23 83.3 kg (183 lb 9.6 oz) 09/06/23 83.5 kg (184 lb) Recent weight changes: increased 30 lbs in past 4 months Physical Activity: Walking on treadmill, 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 Dyslipidemia: No results found for: "LDL" No results found for: "TRIG", "CHOL", "HDL" Gestational Diabetes Mellitus Participant Kidney function review: Lab Results Component Value Date/Time ESTIMATED GLOMERULAR FILTRATION RATE - [facility] >90 09/18/2023 11:43 AM ESTIMATED GLOMERULAR FILTRATION RATE - [facility] >60.0 08/21/2020 06:50 AM No results found for: "ALBUMIN / CREATININE RATIO", "ALBUMIN / CREATININE RATIO, URINE - [facility]" Lab Results Component Value Date/Time PROTEIN/ CREATININE RATIO, URINE - [facility] <148 09/18/2023 12:24 PM Gestational Diabetes Mellitus Participant DSMT/Diabetes MNT Diagnosis: Inconsistent carbohydrate intake related to current meal pattern and questions about what to eat asevidenced by encounter with participant DSMT Initial Visit Assessment of Content Areas: Choose the answer that represents the participant's competency in each area. All need to be assessed at initial. Areas taught must match intervention. If content area not assessed and/or intervened today, it will be deferred to future session. Diabetes disease process and treatment process: Needs instruction (1) Incorporating nutrition management into lifestyle: Needs instruction (1) Incorporating physical activity into lifestyle: Needs instruction (1) Using medications safely: Needs instruction (1) Monitoring blood glucose, interpreting and using results: Comprehends hudson points (3) Prevention, detection, and treatment of acute complications: Needs review (2) Prevention, detection, and treatment of chronic complications: Needs instruction (1) Developing strategies to address psychosocial issues: Needs instruction (1) Developing strategies to promote health/change behavior: Needs instruction (1) DSMT/ Diabetes MNT intervention: Pathophysiology: Defined disease process. Participant admits to a family history of diabetes-grandmother. Nutrition: Educated on the effects of macronutrients on diabetes control and diabetes complications. Taught and had participant identify foods that contain carbohydrates. GDM nutrition: Taught participant how to read a food label. Stressed importance of avoiding sugar sweetened beverages, fruit juices. Encouraged bedtime snack 8-10 hours before fasting test the next day. Encouraged participant to aimfor 2-3 servings of CHO's at meals and 1-2 servings at snacks. Reviewed recommended portion sizes of some common high-CHO foods. Emphasized importance of eating consistent meals. Encouraged her to plan meals and snacks ahead of time.- Participant asking about use of Splenda-encouraged her to use in moderation. Physical Activity: Educated on the role of physical activity on glucose control. Encouraged her to do short sessions of activity after a meal if post prandial glucose levels are elevated above recommended target range. Monitoring: Reviewed recommended target range for glucose levels. 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 She uses a new lancet with eachcheck. She disposes of used lancets in a medicine bottle. States she will be obtaining a sharps container. Participant expresses frustration of elevated glucose level after consuming yogurt and berries for a meal but an acceptable after eating a toaster strudel. Discussed possibility of elevated glucose levels first thing during the day due to insulin resistance. Acute Complications: Encouraged participant to treat hypoglycemia with simple sugar. She states having only 1 episode recently. States she had little options for treating it at the time. Encouraged her to keep sources of simple sugar handy to treat hypoglycemia if it should occur. Promote health/Change behavior: : Educated on possible effects of hyper/hypoglycemia on the fetus and mother. Participant Selected Behavioral Objective: Nutrition: To improve blood glucose control I will eat consistent meals and snacks throughout the day (2-3 hours apart) and consume 30-45 grams of CHO's for meals, 15-30 grams for snacks. Recommended Medication Changes: No changes. Education materials given to participant/caregiver and reviewed during today's visit: Understanding CHO's Hypoglycemia Sample GDM diet pattern Diabetes Self-Management Support: Websites: www.diabetes.org Possible Future Topics: Content areas that were not assessed in first visit: All content areas have been assessed. Time Spent With Patient: Time in: 9:02 AM Time out: 9:44 AM Billing: DSMT: 30 Minutes Plan for Return: 11/14/2023 Participant provided with contact information for Diabetes Care and [facility]. All [facility] providers within the system are able to see [place] [employer] education and outcomes within the participant's electronic medical record. Kassi Cole RDN, NUTRITION SERVICES [facility] Diabetes [facility] and [facility] [employer] documented in this encounter Plan of Treatment Upcoming Encounters Date Type Department Care Team (Late st Contact Info) Description 10/19/2023 1:00 PM EST Telemedicine Educational Coordinator Obstetrics Maternal Medicine, [address] [address] Jazmin Robledo CRNP [facility] [place] [address] 10/20/2023 9:30 AM EST Office Visit Gynecology/Obstetrics [facility] [address] [facility] [place] [address] Sharron Robertson CRNP [address] [place] [address] 10/26/2023 10:15 AM EST Office Visit Cardiology [facility], [place] [address] [place] [address] Summer Cartagena CRNP [address] [place] [id number] 10/27/2023 3:00 PM EST Office Visit Educational Coordinator Obstetrics Maternal Medicine, [place] [address] [place] [address] Cristino Garcia, [address] [place] [address] 10/27/2023 3:00 PM EST Imaging Radiology [facility], [address] [place] [address] 11/02/2023 11:30 AM EST Office Visit Gynecology/Obstetrics [facility] [address] [place] [address] Shantelle Richmond CRNP [address] [place] [address] 11/06/2023 5:10 PM EST [facility] [address] [place] [address] [facility] [address] [place] [address] 11/13/2023 9:00 AM EST Office Visit Gynecology/Obstetrics [facility] [address] [place] [address] Marcellus Lira MD [address] [place] [address] 11/14/2023 3:30 PM EST Telemedicine Nutrition, [facility] [address] [place] [address] Kassi Cole, GERALD [address] [place] [address] 11/15/2023 9:00 AM EST Office Visit Gynecology/Obstetrics [facility] [address] [place] [address] Marcellus Lira MD [address] [place] [address] 11/28/2023 9:00 AM EST Office Visit Gynecology/Obstetrics [facility] [address] [place] [address] Marcellus Lira MD [address] [place] [address] 12/06/2023 2:00 PM EST Office Visit Gynecology/Obstetrics [facility] [address] [place] [address] Shantelle Richmond CRNP [address] [place] [address] 12/11/2023 9:00 AM EDT Office Visit Gynecology/Obstetrics [facility] [address] [place] [address] Marcellus Lira MD [address] [place] [address] 12/21/2023 11:30 AM EDT Office Visit Gynecology/Obstetrics [facility] [address] [place] [address] Shantelle Richmond CRNP [address] [place] [address] Scheduled Referrals Name Type Priority Associated Diagnoses Orde r Schedule DIABETES MANAGEMENT EDUCATION (ADA) REFERRAL Referral Within [...] this encounter Medical Devices Implanted Type Area Paleologist Device Identifier Shelf Expiration Date Model / Serial / Lot Ring [employer]ad [id number] - [id number] Implanted:Qty: 1 on 08/09/2016 by Suha Harding MD at OR [facility] N/A: Heart [employer] 08/31/2019 [id number] / [id number] / [id number] documented as of this encounter Visit Diagnoses Diagnosis Gestational diabetes mellitus (GDM) in third trimester, gestational diabetes method of control unspecified [O24.419] Dietary counseling and surveillance Dietary surveillance and counseling Diet controlled gestational diabetes mellitus (GDM) in [...]
--- OUTSIDE RECORDS SUMMARY | 2023-11-08 22:13 | External Medical Summary | Summary of Care ---
Author Name Unknown Organization [facility] Address [address] [place] [address] Phone [phone] Care Team Providers Care Jacquard Fixer Name Role Phone Unavailable Primary Care Provider Unavailabl e Reason for Visit * Reason Onset Date Comments Self-Blood Glucose Monitoring 10/12/2023 Encounter Details Date Type Department Care Team (Late st Contact Info) Description 10/12/2023 Telephone Padding Gluer Obstetrics Maternal Medicine, [place] [address], [place] [phone] [place], Nurse Padding Gluer [facility] [address], [place] [phone] Self-Blood Glucose Monitoring Allergies Active Allergy Reactions Criticality Noted Date [...] Active Additional Information Patient taking differently: 2 [place] Nasal DAILY PRN, Reported on 11/04/2022 Buprenorphine [...] daily while 1 Each 0 10/06/2023 Active eyesFinder Flex System w/Device Kit Use to test blood sugars 4 times daily (fasting, 1 hour after breakfast, lunch, and dinner) 1 Kit 0 10/11/2023 Active OneTouch Verio In Vitro Strip (Glucose Blood) Use to test blood sugars 4 times daily (fasting, 1 hour after breakfast, lunch, and dinner) 125 Strip 6 10/11/2023 Active CopybarTouch Delica Lancets 30G Use to test blood [...] (dyspnea on exertion),PHT (pulmonary hypertension) ([facility]),Mild persistent asthma with exacerbation 2.5 mg NEBULIZER Q4H PRN 09/01/2023 Active documented as of this encounter (statuses as of 10/12/2023) Active Problems Problem Noted Date Diagnosed Date Blood pressure elevated without history of HTN 1 11/07/2022 Food insecurity 08/14/2023 Overview: Per [facility] Protocol Supervision of high risk in [facility] 08/08/2023 Last Assessment & Plan: growth and fluid appropriate for gestational age. All visualized anatomy appears normal. BLAKE (dyspnea on exertion) 06/26/2023 Bipolar disease during 06/09/2023 Overview: Reports bipolar. Denies SI/HI. Obtained counseling through [facility]. Last Assessment & Plan: No meds, no concerns reported today. 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 S/p valve repair and denies any further issues. Also reports history of [place]. She had a negative heart catheterization at [...] valvular surgery after delivery, and in a mtes-zs-baiq basis after evaluating the particular disease process [...] in January 2023. 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 complicated by subutex maintenance, an tepartum 05/18/2023 [...] patients who previously received 17P. Patient's primary MACHINE SANDER can coordinate therapy if desired. For patients [...] Prophylactic treatment starting at 36 weeks. 05/17/2023 Agny Chase RN 05/17/2023 Subutex use during Maternal [...] breech then ERLTCS. Last in 2020 at [facility]. Desires repeat with tubal at [facility]. Last Assessment & Plan: [...] delivery at 36-37 weeks without amniocentesis per [employer]. Every effort should be made by patient s primary OB provider to obtain prior operative reports. As per [employer]'s 2010 practice [...] ripening or induction of labor. History of [place] (myocardial infarction) 07/27/2018 Overview: Age 27, s/p [...] in 10 months. Using medical marijuana through [email or web address] [facility] 01/14/2020 Angy Chase RN 01/14/2020 nutrition [...] Taken Date entered Entered by Date resolved [facility] breastpump form completed and faxed to [facility] for pt. 07/23/2020 Lisset Gonzalez RN [...] amphedamines, marijuana on tox screen 07/31/18 at [facility] ED Bipolar 1 disorder 07/12/2017 8 [...] money to get more. Sometimes true 11/2022 [place] Depression Scale Answer Date Recorded [place] Depression Scale Total 11 05/17/2023 The thought [...] encounter Miscellaneous Notes * Telephone Encounter - Gisselle Inman LPN - 10/12/2023 8:53 AM EST Patient called in regarding concerns for her sugars- she hasn't seen MFM yet since diagnoses. She has appt on 10/16/23- encouraged patient to continue to check sugars and write down what she eats at that time so when she meets with the DRAFTER STRUCTURAL they can go over her diet as well. Patient reassured and agreeable to plan documented in this encounter Plan of Treatment Upcoming Encounters Date Type Department Care Team ([facility] st Contact Info) Description 10/16/2023 1:45 PM EST Telemedicine Padding Gluer Obstetric [facility] [address] [place] [address] Aleena Shafer CRNP [address] [place] [address] 10/18/2023 1:15 PM EST Appointment Cardiac Studies [facility] [place] [address] [place] [address] 10/20/2023 9:30 AM EST Office Visit Gynecology/Obstetrics [facility] [address] [place] [address] Sharron Robertson CRNP [address] [place] [address] 10/26/2023 10:15 AM EST Office Visit Cardiology [facility] [place] [address] [place] [address] Summer Cartagena CRNP [address] [place] [phone] 10/27/2023 3:00 PM EST Office Visit Padding Gluer Obstetrics Maternal Medicine, [place] [address] [place] [address] Cristino Garcia, [address] [place] [address] 10/27/2023 3:00 PM EST Imaging Radiology [facility], [place] [address] [place] [address] 11/02/2023 11:30 AM EST Office Visit Gynecology/Obstetrics [facility] [address] [place] [address] Shantelle Richmond CRNP [address] [place] [address] 11/06/2023 5:10 PM EST Anticoagulation [place] [address] [place] [address] [place] [address] [place] [address] 11/13/2023 9:00 AM EST Office Visit Gynecology/Obstetrics [facility] [address] [place] [address] Mracellus Lira MD [address] [place] [address] 11/15/2023 9:00 AM EST Office Visit Gynecology/Obstetrics [facility] [address] [place] [address] Marcellus Lira MD [address] [place] [address] 11/28/2023 9:00 AM EST Office Visit Gynecology/Obstetrics [facility] [address] [place] [address] Marcellus Lira MD [address] [place] [address] 12/06/2023 2:00 PM EST Office Visit Gynecology/Obstetrics [facility] [address] [place] [address] Shantelle Richmond CRNP [address] [place] [address] 12/11/2023 9:00 AM EDT Office Visit Gynecology/Obstetrics [facility] [address] [place], [place] [address] Marcellus Lira MD [address] [place] [address] 12/21/2023 11:30 AM EDT Office Visit Gynecology/Obstetrics [facility] [address] [place] [address] Shantelle Richmond CRNP [address] [place] [address] Health Maintenance Due Date Last Done Comments [...] this encounter Medical Devices Implanted Type Area Financial Management Analyst Device Identifier Shelf Expiration Date Model / Serial / Lot Ring Triad [id number] - [id number] Implanted:Qty: 1 on 08/09/2016 by Suha Harding MD at OR [facility] N/A: Heart [employer] 08/31/2019 [id number] / [id number] / [id number] documented as of this encounter Advance Directives [...]
--- OUTSIDE RECORDS SUMMARY | 2023-11-08 22:13 | External Medical Summary | Summary of Care ---
Author Name Unknown Organization [facility] Address [address] [place] [address] Phone [phone] Care Team Providers Care Farmworker [employer] Name Role Phone Unavailable Primary Care Provider Unavailabl e Reason for Visit * Reason Onset Date Comments Referral 10/11/2023 Encounter Details Date Type Department Care Team (Late st Contact Info) Description 10/11/2023 Telephone Deliverer Merchandise Obstetrics Maternal Medicine, [place] [address] [place], [place] [phone] [place], Nurse Deliverer Merchandise [facility] [address] [place], [place] [phone] Referral Allergies Active Allergy Reactions Criticality Noted [...] Active Additional Information Patient taking differently: 2 [place] Nasal DAILY PRN, Reported on 11/04/2022 Buprenorphine [...] daily while 1 Each 0 10/06/2023 Active Spontacts Flex System w/Device Kit Use to test blood sugars 4 times daily (fasting, 1 hour after breakfast, lunch, and dinner) 1 Kit 0 10/11/2023 Active Kopo Kopoio In Vitro Strip (Glucose Blood) Use to [...] 2.5 mgIndications:BLAKE (dyspnea on exertion),PHT (pulmonary hypertension) ([facility]),Mild persistent asthma with exacerbation 2.5 mg NEBULIZER Q4H PRN 09/01/2023 Active documented as of this encounter (statuses as of 10/17/2023) Active Problems Problem Noted Date Diagnosed Date Blood pressure elevated without history of HTN 1 11/07/2022 Food insecurity 08/14/2023 Overview: Per [facility] Protocol Supervision of high risk in [...] valvular surgery after delivery, and in a ahgs-mm-sdyd basis after evaluating the particular disease process [...] in January 2023. She reports that her sumatra opener said she had PH, but that they [...] her most recent echo on file from [facility] (performed in 07/2023), which demonstrated overall [...] reported some decrease in movement to the patient educator. complicated by subutex maintenance, an tepartum 05/18/2023 [...] child born at 35 weeks. Was on [place] in previous pregnancies. Last Assessment & Plan: [...] patients who previously received 17P. Patient's primary ALIGNER BARREL AND RECEIVER can coordinate therapy if desired. For patients [...] breech then [place]RLTCS. [place] [facility] Desires repeat with tubal at [facility]. Last Assessment & Plan: CONSIDERATIONS: Reviewed that [...] in 10 months. Using medical marijuana through [facility] 01/14/2020 Angy Chase RN 01/14/2020 nutrition [...] Taken Date entered Entered by Date resolved [facility] breastpump form completed and faxed to [facility] for pt. 07/23/2020 Lisset Gonzalez RN [...] amphedamines, marijuana on tox screen 07/31/18 at [facility] ED Bipolar 1 disorder 07/12/2017 8 [...] money to get more. Sometimes true 11/2022 [place] Depression Scale Answer Date Recorded [place] Depression Scale Total 11 05/17/2023 The thought [...] encounter Miscellaneous Notes * Telephone Encounter - Devin Velarde RN - 10/17/2023 10:10 AM EST Patient did not show for scheduled maternal medicine PHARMACY OPERATIONS MANAGER consult on 10/16/2023. Please reschedule. Thank you. * Telephone Encounter - Megan Cleaning OSA - 10/12/2023 8:34 AM EST Spoke with pt appts made * Telephone Encounter - Angy Rivera MED ASSIST - 10/11/2023 3:10 PM EST Estimated Date of Delivery: 12/24/23 Please schedule for 45 MINUTE ADAPT WITH BUS OR TRUCK GARAGE MECHANIC, in time frame of within 1 week at location [facility] with the indication of GDM. Please schedule growth (short scan) in 3-4 weeks. Referring Provider: Lesa Degroot PA-C documented in this encounter Plan of Treatment Upcoming Encounters Date Type Department Care Team (Late st Contact Info) Description 10/18/2023 1:15 PM EST Appointment Cardiac Studies [facility], [place] [address] [place] [address] 10/19/2023 9:00 AM EST Telemedicine Nutrition, Jalen Ennis [address] [place] [address] Kassi Cole RDN [address] [place] [address] 10/20/2023 9:30 AM EST Office Visit Gynecology/Obstetrics Saundra Ennis [address] [place] [address] Sharron Robertson CRNP [address] [place], [place] [address] 10/26/2023 10:15 AM EST Office Visit Cardiology [facility], [place] [address] [place] [address] Summer Cartagena CRNP [address] [place] [phone] 10/27/2023 3:00 PM EST Office Visit Deliverer Merchandise Obstetrics Maternal Medicine, [place] [address] [place] [address] Cristino Garcia DO [address] [place] [address] 10/27/2023 3:00 PM EST Imaging Radiology [facility], [place] [address] [place] [address] 11/02/2023 11:30 AM EST Office Visit Gynecology/Obstetrics [facility] [address] [facility] [place] [address] Shantelle Richmond CRNP [address] [place], [place] [address] 11/06/2023 5:10 PM EST [facility]ticoagulation [facility] [address] [place] [address] [facility] [address] [place] [address] 11/13/2023 9:00 AM EST Office Visit Gynecology/Obstetrics [facility] [address] [place] [address] Marcellus Lira MD [address] [place] [address] 11/15/2023 9:00 AM EST Office Visit Gynecology/Obstetrics [facility] [address] [place] [address] Marcellus Lira MD [address] [place] [address] 11/28/2023 9:00 AM EST Office Visit Gynecology/Obstetrics [facility] [address] [place] [address] Marcellus Lira MD [address] [place] [address] 12/06/2023 2:00 PM EST Office Visit Gynecology/Obstetrics [facility] [address] [place] [address] Shantelle Richmond CRNP [address] [place] [address] 12/11/2023 9:00 AM EDT Office Visit Gynecology/Obstetrics [facility] [address] [place] [address] Marcellus Lira MD [address] [place] [address] 12/21/2023 11:30 AM EDT Office Visit Gynecology/Obstetrics [facility] [address] [place] [address] Shantelle Richmond CRNP [address] [place] [address] Health Maintenance Due Date Last Done Comments [...] this encounter Medical Devices Implanted Type Area Epic Trainer Device Identifier Shelf Expiration Date Model / Serial / Lot Ring Triad [id number] - [id number] Implanted:Qty: 1 on 08/09/2016 by Suha Harding MD [place] [facility] N/A: Heart [employer] 08/31/2019 [id number] / [id number] / [id number] documented as of this encounter Advance Directives [...]
--- OUTSIDE RECORDS SUMMARY | 2023-11-08 22:13 | External Medical Summary | Summary of Care ---
Author Name Unknown Organization [facility] Address [address] [place] [address] Phone [phone] Care Team Providers Care Poster Name Role Phone Unavailable Primary Care Provider Unavailabl e Reason for Visit * Reason Onset Date Comments Referral 10/11/2023 Encounter Details Date Type Department Care Team (Late st Contact Info) Description 10/11/2023 Telephone Egg Packer Obstetrics Maternal Medicine, [place] [address], [place] [phone] [place], Nurse Egg Packer [facility] [address], [place] [phone] Referral Allergies Active Allergy Reactions Criticality Noted [...] Active Additional Information Patient taking differently: 2 [place] Nasal DAILY PRN, Reported on 11/04/2022 Buprenorphine [...] daily while 1 Each 0 10/06/2023 Active GetLikeminds Flex System w/Device Kit Use to test blood sugars 4 times daily (fasting, 1 hour after breakfast, lunch, and dinner) 1 Kit 0 10/11/2023 Active [place] Circleio In Vitro Strip (Glucose Blood) Use to [...] 1 11/07/2022 Food insecurity 08/14/2023 Overview: Per [email or web address] Protocol Supervision of high risk in [facility] 08/08/2023 Last Assessment & Plan: [...] any further issues. Also reports history of ID. She had a negative heart catheterization at [...] valvular surgery after delivery, and in a rgdc-ke-ivta basis after evaluating the particular disease process [...] in January 2023. She reports that her hunting sales associate said she had PH, but that they [...] reported some decrease in movement to the switchboard wire worker helper. complicated by subutex maintenance, an tepartum 05/18/2023 [...] child born at 35 weeks. Was on [place] in previous pregnancies. Last Assessment & Plan: [...] patients who previously received 17P. Patient's primary OIL MIXER can coordinate therapy if desired. For patients [...] breech then ERLTCS. Last in 2020 [place] [facility]. Desires repeat with tubal at [facility]. Last Assessment & Plan: CONSIDERATIONS: Reviewed that [...] delivery at 36-37 weeks without amniocentesis per [employer]. Every effort should be made by patient s primary OB provider to obtain prior operative reports. As per [employer]'s 2010 practice [...] ripening or induction of labor. History of [place] (myocardial infarction) 07/27/2018 Overview: Age 27, s/p [...] in 10 months. Using medical marijuana [facility] 01/14/2020 Angy Chase RN 01/14/2020 nutrition [...] Taken Date entered Entered by Date resolved [facility] breastpump form completed and faxed to [facility] for pt. 07/23/2020 Lisset Gonzalez RN 07/23/2020 Problem Action Taken Date entered Entered by Date resolved Current needs or questions Patient denies having any current needs or questions 07/29/2020 Agny Chase RN 07/29/2020 Problem Action Taken Date [...] marijuana on tox screen 07/31/18 at [facility] ED Bipolar 1 disorder 07/12/2017 8 [...] money to get more. Sometimes true 11/2022 [place] Depression Scale Answer Date Recorded [place] Depression Scale Total 11 05/17/2023 The thought [...] Please schedule for 45 MINUTE ADAPT WITH SYNTHETIC DEPARTMENT SUPERVISOR, in time frame of within 1 week at location [facility] with the indication of GDM. Please schedule growth (short scan) in 3-4 weeks. Referring Provider: Lesa Degroot PA-C documented in this encounter Plan of Treatment Upcoming Encounters Date Type Department Care Team (Late st Contact Info) Description 10/16/2023 1:45 PM EST Telemedicine Egg Packer Obstetric [facility] [address] [place] [address] Aleena Shafer CRNP [address] [place] [address] 10/18/2023 1:15 PM EST Appointment [facility] [place] [address] [place] [address] 10/20/2023 9:30 AM EST Office Visit Gynecology/Obstetrics [facility] [address] [place] [address] Sharron Robertson CRNP [address] [place] [address] 10/26/2023 10:15 AM EST Office Visit [facility] [address] [place] [address] Summer Cartagena CRNP [address] [place] [address] 10/27/2023 3:00 PM EST Office Visit Egg Packer Obstetrics Maternal Medicine, [place] [address] [place] [address] Cristino Garcia DO [address] [place] [address] 10/27/2023 3:00 PM EST Imaging Radiology [facility], [place] [address] [place] [address] 11/02/2023 11:30 AM EST Office Visit Gynecology/Obstetrics [facility] [address] [place] [address] Shantelle Richmond CRNP [address] [place] [address] 11/06/2023 5:10 PM EST Anticoagulation [place] [address] [place] [address] [place] [address] [place] [address] 11/13/2023 9:00 AM EST [facility] [address] [place] [address] Marcellus Lira MD [address] [place] [address] 11/15/2023 9:00 AM EST Office Visit Gynecology/Obstetrics [facility] [address] [place] [address] Marcellus Lira MD [address] [place] [address] 11/28/2023 9:00 AM EST Office Visit Gynecology/Obstetrics [facility] [address] [place] [address] Marcellus Lira MD [address] [place] [address] 12/06/2023 2:00 PM EST Office Visit Gynecology/Obstetrics [facility] [address] [place] [address] Shantelle Richmond CRNP [address] [place] [address] 12/11/2023 9:00 AM EDT Office Visit Gynecology/Obstetrics [facility] [address] [place] [address] Marcellus Lira MD [address] [place] [address] 12/21/2023 11:30 AM EDT Office Visit Gynecology/Obstetrics [facility] [address] [place] [address] Shantelle Richmond CRNP [address] [place] [address] Health Maintenance Due Date Last Done Comments [...] this encounter Medical Devices Implanted Type Area Church Supervisor Device Identifier Shelf Expiration Date Model / Serial / Lot Ring Triad [id number] - [id number] Implanted:Qty: 1 on 08/09/2016 by Suha Harding MD at [place] [facility] N/A: Heart [employer] 08/31/2019 [id number] / [id number] / [id number] documented as of this encounter Advance Directives [...]
--- OUTSIDE RECORDS SUMMARY | 2023-11-08 22:14 | External Medical Summary | Summary of Care ---
Author Name Unknown Organization [facility] Address [address] [place] [address] Phone [phone] Care Team Providers Care Linux System Administrator Name Role Phone Unavailable Primary Care Provider Unavailabl e Reason for Visit * Reason Comments Outpatient Testing Encounter Details Date Type Department Care Team (Late st Contact Info) Description 10/11/2023 7:40 AM EST Laboratory Laboratory, [facility] [address] [place] [id number] [facility] [address] [place] [address] Abnormal glucose affecting Allergies Active Allergy Reactions Criticality Noted Date [...] Active Additional Information Patient taking differently: 2 [place] Nasal DAILY PRN, Reported on 11/04/2022 Buprenorphine [...] daily while 1 Each 0 10/06/2023 Active Hospital, Clinic, or Other Facility Administered [...] 2.5 mgIndications:BLAKE (dyspnea on exertion),PHT (pulmonary hypertension) ([facility]),Mild persistent asthma with exacerbation 2.5 mg NEBULIZER Q4H PRN 09/01/2023 Active documented as of this encounter (statuses as of 10/11/2023) Active Problems Problem Noted Date Diagnosed Date Blood pressure elevated without history of HTN 1 11/07/2022 Food insecurity 08/14/2023 Overview: Per [facility] Protocol Supervision of high risk in [facility] 08/08/2023 Last Assessment & Plan: growth and fluid appropriate for gestational age. All visualized anatomy appears normal. BLAKE (dyspnea on exertion) 06/26/2023 Bipolar disease during 06/09/2023 Overview: Reports bipolar. Denies SI/HI. Obtained counseling through [facility]. Last Assessment & Plan: No meds, no concerns reported today. 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 S/p valve repair and denies any further issues. Also reports history of DC. She had a negative heart catheterization at [...] valvular surgery after delivery, and in a hmel-hh-uwya basis after evaluating the particular disease process [...] in January 2023. She reports that her hospice clinical supervisor said she had PH, but that [...] her most recent echo on file from [facility] (performed in 07/2023), which demonstrated overall [...] reported some decrease in movement to the local tanker truck driver. complicated by subutex maintenance, an tepartum 05/18/2023 [...] patients who previously received 17P. Patient's primary PREFLIGHT INSPECTOR can coordinate therapy if desired. For patients [...] breech then ERLTCS. Last in 2019 at [facility]. Desires repeat with tubal at [facility]. Last Assessment & Plan: CONSIDERATIONS: Reviewed that [...] delivery at 36-37 weeks without amniocentesis per [employer]. Every effort should be made by patient s primary OB provider to obtain prior operative reports. As per [employer]'s 2010 practice [...] ripening or induction of labor. History of DC (myocardial infarction) 07/27/2018 Overview: Age 27, s/p [...] in 10 months. Using medical marijuana through [employer] [facility] 01/14/2020 Angy Chase RN 01/14/2020 [...] Taken Date entered Entered by Date resolved [facility] breastpump form completed and faxed to [facility] for pt. 07/23/2020 Lisset Gonzalez RN [...] marijuana on tox screen 07/31/18 at [facility] Bipolar 1 disorder 07/12/2017 8 Attention [...] money to get more. Sometimes true 11/2022 [place] Depression Scale Answer Date Recorded [place] Depression Scale Total 11 05/17/2023 The thought [...] 10/18/2023 1:15 PM EST Appointment Cardiac Studies [address] [address] 10/20/2023 9:30 AM EST Office Visit Gynecology/Obstetrics [facility] [address] [place] [address] Sharron Robertson CRNP [address] [place] [address] 10/26/2023 10:15 AM EST Office Visit Cardiology [facility] [address] [place] [address] Summer Cartagena CRNP [address] [place] [phone] 11/02/2023 11:30 AM EST Office Visit Gynecology/Obstetrics [facility] [address] [place] [address] Shantelle Richmond CRNP [address] [place] [address] 11/06/2023 5:10 PM EST [facility] [address] [place] [address] [place] [address] [place] [address] 11/13/2023 9:00 AM EST Office Visit Gynecology/Obstetrics [facility] [address] [place] [address] Marcellus Lira MD [address] [place] [address] 11/15/2023 9:00 AM EST Office Visit Gynecology/Obstetrics [facility] [address] [place] [address] Marcellus Lira MD [address] [place] [address] 11/28/2023 9:00 AM EST Office Visit Gynecology/Obstetrics [facility] [address] [place] [address] Marcellus Lira MD [address] [place] [address] 12/06/2023 2:00 PM EST Office Visit Gynecology/Obstetrics [facility] [address] [place] [address] Shantelle Richmond CRNP [address] [place] [address] 12/11/2023 9:00 AM EDT Office Visit Gynecology/Obstetrics [facility] [address] [place] [address] Marcellus Lira MD [address] [place] [address] 12/21/2023 11:30 AM EDT Office Visit Gynecology/Obstetrics [facility] [address] [place] [address] Shantelle Richmond CRNP [address] [place] [address] Pending Results Name Type Priority Associated Diagnoses Date /Time GESTATIONAL GLUCOSE TOLERANCE, 3 HOUR Lab Routine Abnormal glucose affecting 10/11/2023 7:45 AM EST 100-G GESTATIONAL GLUCOSE, 2 HOUR Lab Routine Abnormal glucose affecting 10/11/2023 9:50 AM EST 100-G GESTATIONAL GLUCOSE, 3 HOUR Lab Routine Abnormal glucose affecting 10/11/2023 10:53 AM EST Health Maintenance Due Date Last Done Comments [...] this encounter Medical Devices Implanted Type Area Cookie Breaker Device Identifier Shelf Expiration Date Model / Serial / Lot Ring Triad [id number] - [id number] Implanted:Qty: 1 on 08/09/2016 by Suha Harding MD at OR [facility] N/A: Heart [employer] 08/31/2019 [id number] / [id number] / [id number] documented as of this encounter Procedures Procedure Name Priority Date/Time Associated Diagnosis Comments 100-G GESTATIONAL GLUCOSE, 1 HOUR Routine 10/11/2023 8:53 AM EST Abnormal glucose affecting 100-G GESTATIONAL GLUCOSE, FASTING Routine 10/11/2023 7:45 AM EST Abnormal glucose affecting documented in this encounter Results * (ABNORMAL) 100-G GESTATIONAL GLUCOSE, 1 HOUR (10/11/2023 8:53 AM EST) 100-g Gestational Glucose, 1 Hour 209(H) 70 - 179 mg/dL 10/11/2023 9:29 AM EST LABORATORY [place] 57-10 Blood Venous blood specimen / Unknown Venipuncture / Unknown 10/11/2023 8:53 AM EST 10/11/2023 8:53 AM EST Lesa Degroot PA-C LAB BLOOD ORDERABLES Performing Organization Address City/[facility]/ZIP Co de Phone Number [facility] [place] [phone] [place] [phone] * 100-G GESTATIONAL GLUCOSE, FASTING (10/11/2023 7:45 AM EST) 100-g Gestational Glucose, Fasting 88 70 - 94 mg/dL 10/11/2023 9:04 AM EST [facility] 57-10 Blood Venous blood specimen / Unknown Venipuncture / Unknown 10/11/2023 7:45 AM EST 10/11/2023 7:45 AM EST Narrative [facility] 57-10 - 10/11/2023 9:04 AM EST Based on ACOG guideline, gestational diabetes mellitus is diagnosed when any of the following is met: Fasting is greater than or equal to 95 mg/dL 1 hour is greater than or equal to 180 mg/dL 2 hour is greater than or equal to 155 mg/dL 3 hour is greater than or equal to 140 mg/dL Lesa Degroot PA-C LAB BLOOD ORDERABLES Performing Organization Address [facility] Co de Phone Number [phone] [place] [phone] documented in this encounter Visit Diagnoses Diagnosis Abnormal glucose affecting documented in this encounter Advance Directives Latest [...]
--- OUTSIDE RECORDS SUMMARY | 2023-11-08 22:14 | External Medical Summary | Summary of Care ---
Author Name Unknown Organization [facility] Address [address] [place] [address] Phone [phone] Care Team Providers Care Inspector [employer] Name Role Phone Unavailable Primary Care Provider Unavailabl e Reason for Visit * Reason Onset Date Comments Advice 09/29/2023 Encounter Details Date Type Department Care Team (Late st Contact Info) Description 09/29/2023 Telephone Cardiology [facility] [address] [place] [address] Summer Cartagena CRNP [address] [place] [address] Advice Allergies Active Allergy Reactions Criticality Noted Date Comments Sulfamethoxazole-Trimetho prim Nausea/vomiting Medium 01/19/2018 Nausea when taken with keflex Doxycycline Nausea/vomiting Medium 09/10/2018 Cephalexin Nausea/vomiting Medium 01/19/2018 Nausea when taken with bactrim documented as of this encounter (statuses as of 10/06/2023) Medications Medication Sig Dispensed Refills Start Date [...] Active Additional Information Patient taking differently: 2 [place] Nasal DAILY PRN, Reported on 11/04/2022 Buprenorphine [...] as of this encounter (statuses as of 10/06/2023) Active Problems Problem Noted Date Diagnosed Date Blood pressure elevated without history of HTN 1 11/07/2022 Food insecurity 08/14/2023 Overview: Per [facility] Protocol Supervision of high risk in second tri mester 08/08/2023 Last Assessment & Plan: growth and fluid appropriate for gestational age. All visualized anatomy appears normal. BLAKE (dyspnea on exertion) 06/26/2023 Bipolar disease during 06/09/2023 Overview: Reports bipolar. Denies SI/HI. Obtained counseling through [facility]. Last Assessment & Plan: No meds, [...] valvular surgery after delivery, and in a xuqp-cv-xamw basis after evaluating the particular disease process [...] in January 2023. She reports that her academic affairs dean said she had PH, but that [...] her most recent echo on file from [facility] (performed in 07/2023), which demonstrated overall stable [...] reported some decrease in movement to the sewer inspector. complicated by subutex maintenance, an tepartum 05/18/2023 Overview: Following with Neil. Marcello. Taking 16 mg daily Subutex. Is interested [...] child born at 35 weeks. Was on [place] in previous pregnancies. Last Assessment & [...] patients who previously received 17P. Patient's primary JAWBONE PULLER can coordinate therapy if desired. For patients [...] breech then ERLTCS. Last in 2019 at [facility]. Desires repeat with tubal at [facility]. Last Assessment & Plan: CONSIDERATIONS: Reviewed that [...] delivery at 36-37 weeks without amniocentesis per [employer]. Every effort should be made by patient s primary OB provider to obtain prior operative reports. As per [employer]'s 2010 practice [...] as of this encounter (statuses as of 10/06/2023) Resolved Problems Problem Noted Date Diagnosed Date [...] in 10 months. Using medical marijuana through [employer] [facility] 01/14/2020 Angy Chase RN 01/14/2020 nutrition [...] Taken Date entered Entered by Date resolved [employer] breastpump form completed and faxed to [facility] for pt. 07/23/2020 Lisset Gonzalez RN [...] 10/06/2020 Overview: Delivered at 35w0d Previously on [place] Stopped at 36w Opioid dependence, uncomplicated [...] marijuana on tox screen 07/31/18 at [facility] ED Bipolar 1 disorder [...] as of this encounter (statuses as of 10/06/2023) Immunizations Name Administration Dates Next Due COVID-19 mRNA, LNP-s, No Pre serve, 2-Dose Series (Moderna) 03/12/2022,02/10/2022 DTP Vaccine 09/02/1992, 2,1991,06/04 DTaP Dipth/Tet/Acell Pertussis (Infanrix), Peds 03/05/1996 HEP A - Hepatitis A (Adult > 18 yrs) 01/30/2019 HIB PRP-T, 4 dose (ActHib) 07/08/1992,,1991,06/04 HPV Vaccine, 4-Valent 07/14/2011,03/15/2011,03/2 10/2010 HPV Vaccine, 9-Valent 07/14/2011,03/15/2011,12/01 Haemophilius B (HIB), [...] money to get more. Sometimes true 11/2022 [place] Depression Scale Answer Date Recorded [place] Depression Scale Total 11 05/17/2023 The [...] encounter Miscellaneous Notes * Telephone Encounter - Tawana Aguilar RN - 10/03/2023 2:04 PM EST Summer, Called and spoke with patient. She said the last 8 days have been terrible. She is still having spikes in her blood pressure. Systolic 130-140 diastolic in the 90s. She was 170/116 in the ED at one point. She said she had been in the hospital twice for IV fluids. She wakes up in the middle of the night with her heart pounding then she has to run to vomit. She is on the way to her JAWBONE PULLER for an appointment currently. Tawana Aguilar RN 10/03/2023 2:06 PM * Telephone Encounter - Ruba Bill LPN - 09/29/2023 10:06 AM EST Person calling: Felipa Relationship to patient: patient Number to return call: [phone] Reason for call (please describe): Patient reports she is 7 mths . Past 5 days she has been sick with nausea/vomiting; states this is a new symptom for her. Has vomited 5 times this morning already (currently 10am at time of call). Tells me her baseline bp is usually low "88/50 is normal for me" but has been randomly spikingpast few days. States this morning she got out of bed and walked to couch to take bp because she "felt heart racing and felt like it was going to jump out of my chest", also feels like her anxiety is"super high." States she was to COMMERCIAL LINES ACCOUNT EXECUTIVE provider recently and had workup for preeclampsia but that was negative at the time. I advised patient be seen in urgent care/ER to make sure she doesn't need IV hydration d/t vomiting. Patient agreeable and states one of her other providers recommended that yesterday as well. Please advise if any further, Ruba Bill LPN [facility] [place] 09/29/2023 10:09 AM documented in this encounter Plan of Treatment Upcoming Encounters Date Type Department Care Team (Late st Contact Info) Description 10/11/2023 7:40 AM EST [facility] [address] [place] [phone] Deepti Ennis [address] [facility] [place] [address] 10/18/2023 1:15 PM EST Appointment Cardiac Studies [facility] [address] [address] 10/20/2023 9:30 AM EST Office Visit Gynecology/Obstetrics [facility] [address] [place] [address] Sharron Robertson CRNP [address] [facility] [place] [address] 10/26/2023 10:15 AM EST [facility] [address] [place] [address] Summer Cartagena CRNP [address] [facility] [place] [address] 11/02/2023 11:30 AM EST Office Visit Gynecology/Obstetrics [facility] [address] [place] [address] Shantelle Richmond CRNP [address] [place] [address] 11/06/2023 5:10 PM EST [facility] [address] [place] [address] [facility] [address] [place] [address] 11/13/2023 9:00 AM EST Office Visit Gynecology/Obstetrics [facility] [address] [place] [address] Marcellus Lira MD [address] [place] [address] 11/15/2023 9:00 AM EST Office Visit Gynecology/Obstetrics [facility] [address] [place] [address] Marcellus Lira MD [address] [place] [address] 11/28/2023 9:00 AM EST Office Visit Gynecology/Obstetrics [facility] [address] [place] [address] Marcellus Lira MD [address] [place] [address] 12/06/2023 2:00 PM EST Office Visit Gynecology/Obstetrics [facility] [address] [place] [address] Shantelle Richmond CRNP [address] [place] [address] 12/11/2023 9:00 AM EDT Office Visit Gynecology/Obstetrics [facility] [address] [place] [address] Marcellus Lira MD [address] [place] [address] 12/21/2023 11:30 AM EDT Office Visit Gynecology/Obstetrics [facility] [address] [place] [address] Shantelle Richmond CRNP [address] [place] [address] Health Maintenance Due Date Last Done Comments [...] this encounter Medical Devices Implanted Type Area Hazardous Waste Technician Device Identifier Shelf Expiration Date Model / Serial / Lot Ring Alirio [id number] - [id number] Implanted:Qty: 1 on 08/09/2016 by Suha Harding MD at [place] [facility] N/A: Heart [employer] 08/31/2019 [id number] / [id number] / [id number] documented as of this encounter Advance Directives [...]
--- OUTSIDE RECORDS SUMMARY | 2023-11-08 22:14 | External Medical Summary | Summary of Care ---
Author Name Unknown Organization [facility] Address [address] [facility] [place] [address] Phone [phone] Care Team Providers Care Blacksmith Apprentice Name Role Phone Unavailable Primary Care Provider Unavailabl e Reason for Referral * Evaluate & Treat - Unlimited Visits (Within 10 days (routine)) - Pending Review Specialty Diagnoses / Procedures Referred By Karlene valle Referred To Contact Credit And Collection Manager / Nutrition Services Diagnoses Gestational diabetes mellitus (GDM) in third trimester, gestational diabetes method of control unspecified Leatha Degroot PA-C [address] [place] [address] Referral ID Status Reason Start Date Expiration Date Visits Requested Visits Authorized [id number] Pending Review Specialty Services Required 10/11/2023 999 999 Question Answer Is the patient ? Yes Referral Priority Within 10 days (routine) Where should this appointment be scheduled? [facility] Comments This referral is for Diabetes Self-Management Training (DSMT) by a recognized [place] Diabetes Association (ADA) certified adapted physical educator: Nurse (RN), Registered Dietitian Data Control Assistant (RDN), and/or Diabetes Medical Nutrition Therapy (MNT) Management (dietitian only). Diabetes educators are responsible for assessing the participant's diabetes education needs, and providing diabetes self-management training in accordance with the standards set by the ADA for DSMT. Any adjustment in diabetes therapy will be made within the guidelines of standards of practice and [facility] approved policies and procedures. I understand that the certified adapted physical educator will keep me informed. Areas of [...] method of control unspecified Leatha Degroot PA-C [address] [place] [address] Referral ID Status Reason Start Date Expiration Date Visits Requested Visits Authorized [id number] Pending Review Specialty Services Required 10/11/2023 999 [...] st Contact Info) Description 10/05/2023 Telephone Gynecology/Obstetrics [facility] [address] [place] [address] Leatha Degroot PA-C [address] [place] [address] Test Results Allergies Active Allergy Reactions Criticality [...] Active Additional Information Patient taking differently: 2 [place] Nasal DAILY PRN, Reported on 11/04/2022 Buprenorphine [...] before eating.. 30 Capsule 1 10/04/2023 Active [employer] Flex System w/Device Kit Use to test blood sugars 4 times daily (fasting, 1 hour after breakfast, lunch, and dinner) 1 Kit 0 10/11/2023 Active [employer] In Vitro Strip (Glucose Blood) Use to test blood sugars 4 times daily (fasting, 1 hour after breakfast, lunch, and dinner) 125 Strip 6 10/11/2023 Active RV ID [id number] Lancets 30G Use to test blood sugars [...] 2.5 mgIndications:BLAKE (dyspnea on exertion),PHT (pulmonary hypertension) ([facility]),Mild persistent asthma with exacerbation 2.5 [...] Reports bipolar. Denies SI/HI. Obtained counseling through [facility]. Last Assessment & Plan: No meds, [...] valvular surgery after delivery, and in a wsod-ft-aqey basis after evaluating the particular disease process [...] in January 2023. She reports that her pharmaceutical laboratory technician said she had PH, but that they [...] her most recent echo on file from [facility] (performed in 07/2023), which demonstrated overall [...] reported some decrease in movement to the scene and lighting design lecturer. complicated by subutex maintenance, an tepartum 05/18/2023 [...] child born at 35 weeks. Was on [place] in previous pregnancies. Last Assessment & Plan: [...] patients who previously received 17P. Patient's primary BANQUET CHEF can coordinate therapy if desired. For patients [...] breech then ERLTCS. Last in 2019 at [facility]. Desires repeat with tubal at [facility]. Last Assessment & Plan: CONSIDERATIONS: Reviewed that [...] delivery at 36-37 weeks without amniocentesis per [employer]. Every effort should be made by patient s primary OB provider to obtain prior operative reports. As per [employer]'s 2010 practice [...] in 10 months. Using medical marijuana through [employer] 01/14/2020 Angy Chase RN 01/14/2020 nutrition Due [...] Taken Date entered Entered by Date resolved [facility] breastpump form completed and faxed to [facility] for pt. 07/23/2020 Lisset Gonzalez [...] 10/06/2020 Overview: Delivered at 35w0d Previously on [place] Stopped at 36w Opioid dependence, uncomplicated 01/16/2019 [...] money to get more. Sometimes true 11/2022 [place] Depression Scale Answer Date Recorded Fa[place] Depression Scale Total 11 05/17/2023 The thought [...] as of this encounter Miscellaneous Notes * Addendum Note - Leatha Degroot PA-C - 10/11/2023 2:38 PM ESTAddended by: LEATHA DEGROOT on: 10/11/2023 02:38 PM Modules accepted: Orders * Telephone Encounter - Leatha Degroot PA-C - 10/11/2023 12:50 PM EST Unfortunately she failed 3 hour gtt which indicates she has GDM. I placed referral back to [facility] for her to be seen for [...] 10/18/2023 1:15 PM EST Appointment Cardiac Studies [facility] [place] [address] [place] [address] 10/20/2023 9:30 AM EST Office Visit Gynecology/Obstetrics [facility] [address] [facility] [address] Sharron Robertson CRNP [address] [facility] [address] 10/26/2023 10:15 AM EST Office Visit Cardiology [place] [address] [place] [address] Summer Cartagena CRNP [address] [place] [address] 11/02/2023 11:30 AM EST Office Visit Gynecology/Obstetrics [facility] [address] [facility] [place] [address] Shantelle Richmond CRNP [address] [place] [address] 11/06/2023 5:10 PM EST Anticoagulation Pharmacy[address] [address] [facility] [address] [facility], [place] [address] 11/13/2023 9:00 AM EST Office Visit Gynecology/Obstetrics [facility] [address] [place] [address] Marcellus Lira MD [address] [place] [address] 11/15/2023 9:00 AM EST Office Visit Gynecology/Obstetrics [facility] [address] [place] [address] Marcellus Lira MD [address] [place] [address] 11/28/2023 9:00 AM EST Office Visit Gynecology/Obstetrics [facility] [address] [place] [address] Marcellus Lira MD [address] [place] [address] 12/06/2023 2:00 PM EST Office Visit Gynecology/Obstetrics [facility] [address] [place] [address] Shantelle Richmond CRNP [address] [place] [address] 12/11/2023 9:00 AM EDT Office Visit Gynecology/Obstetrics [facility] [address] [place] [address] Marcellus Lira MD [address] [place] [address] 12/21/2023 11:30 AM EDT Office Visit Gynecology/Obstetrics [facility] [address] [place] [address] Backer, NICKOLAS Mattson [address] [place] [address] Scheduled Orders Name Type Priority Associated Diagnoses [...] this encounter Medical Devices Implanted Type Area Ore Bridge Operator Device Identifier Shelf Expiration Date Model / Serial / Lot Michael Amezquita [id number] - [id number] Implanted:Qty: 1 on 08/09/2016 by Suha Harding MD at OR [facility] N/A: Heart [employer] 08/31/2019 [id number] / [id number] / [id number] documented as of this encounter Visit Diagnoses [...]
--- OUTSIDE RECORDS SUMMARY | 2023-11-08 22:14 | External Medical Summary | Summary of Care ---
Author Name Unknown Organization [facility] Address [address] [place] [address] Phone [phone] Care Team Providers Care Lead Net Software Developer Name Role Phone Unavailable Primary Care Provider Unavailabl e Reason for Visit * Reason Onset Date Comments Advice 10/04/2023 TB test Jul 2022 Encounter Details Date Type Department Care Team (Late st Contact Info) Description 10/04/2023 Telephone Family Practice [facility] [address] [facility] [place] [address] Christelle Andujar CRNP [address] [place] [address] Advice (TB test Jul 2022) Allergies Active Allergy Reactions Criticality Noted Date [...] Additional Information Patient taking differently: 2 [place] Nasal DAILY PRN, Reported on 11/04/2022 Buprenorphine [...] the morning. 30 Tablet 3 07/06/2023 Active Promethazine HCl 25 MG Rectal Suppository (Phenergan)Indicatio ns:Nausea and vomiting during Administer 1 Suppository into the rectum every 6 hours as needed for Nausea. 20 Each 0 10/04/2023 Active Omeprazole 20 MG Oral Capsule Delayed Release (PriLOSEC)Indication s:Nausea and vomiting during Take 1 Capsule by mouth in the morning. Take 30 minutes before eating.. 30 Capsule 1 10/04/2023 Active Hospital, Clinic, or Other Facility Administered [...] 1 11/07/2022 Food insecurity 08/14/2023 Overview: Per [facility] Protocol Supervision of high risk in [facility] 08/08/2023 Last Assessment & Plan: growth and fluid appropriate for gestational age. All visualized anatomy appears normal. BLAKE (dyspnea on exertion) 06/26/2023 Bipolar disease during 06/09/2023 Overview: Reports bipolar. Denies SI/HI. Obtained counseling through [facility]. Last Assessment & Plan: No meds, no [...] valvular surgery after delivery, and in a saag-ev-txvg basis after evaluating the particular disease process [...] in January 2023. She reports that her painting manager said she had PH, but that they [...] her most recent echo on file from [facility] (performed in 07/2023), which demonstrated overall [...] reported some decrease in movement to the silk weaver. complicated by subutex maintenance, an tepartum 05/18/2023 [...] patients who previously received 17P. Patient's primary BRUSH WORKER can coordinate therapy if desired. For patients [...] Last in 2019 at [facility]. Desires repeat with tubal at [facility]. Last Assessment & Plan: CONSIDERATIONS: Reviewed that [...] delivery at 36-37 weeks without amniocentesis per [employer]. Every effort should be made by patient s primary OB provider to obtain prior operative reports. As per [employer]'s 2010 practice [...] in 10 months. Using medical marijuana through [employer] 01/14/2020 Angy Chase RN 01/14/2020 nutrition Due [...] Taken Date entered Entered by Date resolved [facility] breastpump form completed and faxed to [facility] for pt. 07/23/2020 Lisset Gonzalez RN 07/23/2020 [...] 10/06/2020 Overview: Delivered at 35w0d Previously on [place] Stopped at 36w Opioid dependence, uncomplicated 01/16/2019 [...] amphedamines, marijuana on tox screen 07/31/18 at [facility] ED Bipolar 1 disorder 07/12/2017 [...] money to get more. Sometimes true 11/2022 [place] Depression Scale Answer Date Recorded [place] Depression Scale Total 11 05/17/2023 The thought [...] encounter Miscellaneous Notes * Telephone Encounter - Dora Alexandra LPN - 10/06/2023 12:08 PM EST Copied results with pt's name and sent via [employer] message. * Telephone Encounter - Cristino Mckeon OSA - 10/04/2023 11:41 AM EST Patient needs copy of TB test results from July 2022 with her name on it for employer. Says the screen on [employer] does not show her name. If the immunization report, with her name on it, can be sent as an image via [employer] she will be able to use that for her employer. documented in this encounter Plan of Treatment Upcoming Encounters Date Type Department Care Team (Late st Contact Info) Description 10/11/2023 7:40 AM EST [facility] [address] [facility] [place] [address] [facility] [address] [facility] [place] [address] 10/18/2023 1:15 PM EST Appointment Cardiac Studies [facility] [address] [address] 10/20/2023 9:30 AM EST Office Visit Gynecology/Obstetrics [facility] [address] [facility] [place] [address] Sharron Robertson [facility] [address] 10/26/2023 10:15 AM EST Office Visit [facility] [place] [address] [place] [address] Summer Cartagena CRNP [address] [place] [address] 11/02/2023 11:30 AM EST Office Visit Gynecology/Obstetrics [facility] [address] [facility] [place] [address] Shantelle Richmond CRNP [address] [place] [address] 11/06/2023 5:10 PM EST Anticoagulation Pharmacy[address] [address] [facility] [address] [facility] [place] [address] 11/13/2023 9:00 AM EST Office Visit Gynecology/Obstetrics [facility] [address] [place] [address] Marcellus Lira MD [address] [place] [address] 11/15/2023 9:00 AM EST Office Visit Gynecology/Obstetrics [facility] [address] [place] [address] Marcellus Lira MD [address] [place] [address] 11/28/2023 9:00 AM EST Office Visit Gynecology/Obstetrics [facility] [address] [place] [address] Marcellus Lira MD [address] [place] [address] 12/06/2023 2:00 PM EST Office Visit Gynecology/Obstetrics [facility] [address] [place] [address] Shantelle Richmond CRNP [address] [place] [address] 12/11/2023 9:00 AM EDT Office Visit Gynecology/Obstetrics [facility] [address] [place] [address] Marcellus Lira MD [address] [place] [address] 12/21/2023 11:30 AM EDT Office Visit Gynecology/Obstetrics [facility] [address] [place] [address] Backer, NICKOLAS Mattson [address] [place] [address] Health Maintenance Due Date Last Done Comments [...] this encounter Medical Devices Implanted Type Area Grocery Packer Device Identifier Shelf Expiration Date Model / Serial / Lot Ring [employer]ad [id number] - [id number] Implanted:Qty: 1 on 08/09/2016 by Suha Harding MD at OR [facility] N/A: Heart [employer] 08/31/2019 [id number] / [id number] / [id number] documented as of this encounter Advance Directives [...]
--- OUTSIDE RECORDS SUMMARY | 2023-11-08 22:14 | External Medical Summary ---
Author Name Unknown Address Unknown Organization [facility] [place] [address] [place] [id number] Laboratory Report Ordering Provider Test Date Status SHERRY ZHANG 10/11/2023 07:45:31 Final Based on ACOG guideline, ges tational diabetes mellitus is diagnosed when any of the following is met:
Fasting is greater than or equal to 95 mg/dL
1 hour is greater than or equal to 180 mg/dL
2 hour is greater than or equal to 155 mg/dL
3 hour is greater than or equal to 140 mg/dL Observation Date Value Abnormality Reference (Units ) Status Glucose, fasting 10/11/2023 07:45:31 88 70- 94 (mg/dL) Final Performing Location LAB[facility]ATORY [facility] [place] [address] [place] [address]
--- OUTSIDE RECORDS SUMMARY | 2023-11-08 22:14 | External Medical Summary ---
Author Name Unknown Address Unknown Organization [facility] [address] [facility] [address] [place] [id number] Laboratory Report Ordering Provider Test Date Status SHERRY ZHANG 10/11/2023 08:53:35 Final Observation Date Value Abnormality Reference (Units ) Status Glucose [Mass/volume] in Serum or Plasma --1 hour post dose glucose 10/11/2023 08:53:35 209 Above high normal 70-179 (mg/dL) Final Performing Location LAB[facility]ATORY [facility] [place] [address] [place] [id number]
--- OUTSIDE RECORDS SUMMARY | 2023-11-08 22:14 | External Medical Summary | Summary of Care ---
Author Name Unknown Organization [facility] Address [address] [place] [address] Phone [phone] Care Team Providers Care Toy Department Manager Name Role Phone Unavailable Primary Care Provider Unavailabl e Reason for Visit * Reason Onset Date Comments Medication Refill 10/09/2023 Encounter Details Date Type Department Care Team (Late st Contact Info) Description 10/06/2023 Refill Gynecology/Obstetrics [facility] [address] [place] [address] Leatha Degroot PA-C [address] [place] [address] Allergies Active Allergy Reactions Criticality Noted Date Comments Sulfamethoxazole-Trimetho prim Nausea/vomiting Medium 01/19/2018 Nausea when taken with keflex Doxycycline Nausea/vomiting Medium 09/10/2018 Cephalexin Nausea/vomiting Medium 01/19/2018 Nausea when taken with bactrim documented as of this encounter (statuses as of 10/09/2023) Medications Medication Sig Dispensed Refills Start Date [...] Active Additional Information Patient taking differently: 2 [place] Nasal DAILY PRN, Reported on 11/04/2022 Buprenorphine [...] mgIndications:BLAKE (dyspnea on exertion),PHT (pulmonary hypertension) ([facility]),Mild persistent asthma with exacerbation 2.5 mg NEBULIZER Q4H PRN 09/01/2023 Active documented as of this encounter (statuses as of 10/09/2023) Active Problems Problem Noted Date Diagnosed Date Blood pressure elevated without history of HTN 1 11/07/2022 Food insecurity 08/14/2023 Overview: Per [facility] Protocol Supervision of high risk in [facility] 08/08/2023 Last Assessment & Plan: growth [...] any further issues. Also reports history of OR. She had a negative heart catheterization at [...] valvular surgery after delivery, and in a scbt-bi-oehh basis after evaluating the particular disease process [...] in January 2023. She reports that her house worker general said she had PH, but that they [...] her most recent echo on file from [facility] (performed in 07/2023), which demonstrated [...] some decrease in movement to the local company flatbed truck driver. complicated by subutex maintenance, an [...] child born at 35 weeks. Was on [place] in previous pregnancies. Last Assessment & Plan: [...] patients who previously received 17P. Patient's primary GLASS OR MIRROR INSPECTOR can coordinate therapy if desired. For [...] then ERLTCS. Last in 2019 at [facility]. Desires repeat with tubal at [facility]. Last Assessment & Plan: CONSIDERATIONS: Reviewed that [...] delivery at 36-37 weeks without amniocentesis per [place] [employer]. Every effort should be made by patient s primary OB provider to obtain prior operative reports. As per [place] [employer]'s 2010 practice [...] ripening or induction of labor. History of OR (myocardial infarction) 07/27/2018 Overview: Age 27, s/p [...] as of this encounter (statuses as of 10/09/2023) Resolved Problems Problem Noted Date Diagnosed Date Resolved Date Tricuspid valve replaced 01/12/2022 04/ Unspecified asthma, uncomplicated 03/14/2021 01/12/2022 Depressive disorder [...] in 10 months. Using medical marijuana through [employer] 01/14/2020 Angy Chase RN 01/14/2020 [...] Date entered Entered by Date resolved [facility] breastpump form completed and faxed to [facility] for pt. 07/23/2020 Lisset Gonzalez RN [...] marijuana on tox screen 07/31/18 at [facility] ED Bipolar 1 disorder 07/12/2017 [...] as of this encounter (statuses as of 10/09/2023) Immunizations Name Administration Dates Next Due COVID-19 [...] money to get more. Sometimes true 11/2022 [place] Depression Scale Answer Date Recorded [place] Depression Scale Total 11 05/17/2023 The thought [...] Telephone Encounter - Leatha Degroot PA-C - 10/06/2023 5:01 PM ESTSigned Prescriptions: Disp Refills Breast Pump 1 Each 0 Sig: Pump daily while Authorizing Provider: LEATHA DEGROOT * Telephone Encounter - Leatha Degroot PA-C - 10/06/2023 5:00 PM EST Signed. Routing back. * Telephone Encounter - Mercedez Valente RN - 10/06/2023 11:10 AM EST Patient requested we submit a breast pump order for her through [employer]. Order pended. Please sign and route back. documented in this encounter Plan of Treatment Upcoming Encounters Date Type Department Care Team (Late st Contact Info) Description 10/11/2023 7:40 AM EST Laboratory [facility] [phone] [facility] [address] [facility] [place] [address] 10/18/2023 1:15 PM EST Appointment Cardiac Studies [facility], [place] [address] [place] [address] 10/20/2023 9:30 AM EST Office Visit Gynecology/Obstetrics [facility] [address] [facility] [place] [address] Sharron Robertson CRNP [facility] [place] [address] 10/26/2023 10:15 AM EST Office Visit Cardiology [facility] [address] [place], [place] [address] Summer Cartagena CRNP [address] [place] [address] 11/02/2023 11:30 AM EST Office Visit Gynecology/Obstetrics [facility] [address] [place] [address] Shantelle Richomnd CRNP [address] [place] [address] 11/06/2023 5:10 PM EST Anticoagulation [facility] [address] [facility] [place] [address] [facility] [address] [place] [address] 11/13/2023 9:00 AM EST Office Visit Gynecology/Obstetrics [facility] [address] [place] [address] Marcellus Lira MD [address] [place] [address] 11/15/2023 9:00 AM EST Office Visit Gynecology/Obstetrics [facility] [address] [place] [address] Marcellus Lira MD [address] [place] [address] 11/28/2023 9:00 AM EST Office Visit Gynecology/Obstetrics [facility] [address] [place] [address] Marcellus Lira MD [address] [place] [address] 12/06/2023 2:00 PM EST Office Visit Gynecology/Obstetrics [facility] [address] [place] [address] Shantelle Richmond CRNP [address] [place] [address] 12/11/2023 9:00 AM EDT Office Visit Gynecology/Obstetrics [facility] [address] [place] [address] Marcellus Lira MD [address] [place] [address] 12/21/2023 11:30 AM EDT Office Visit Gynecology/Obstetrics [facility] [address] [place] [address] Shantelle Richmond CRNP [address] [place] [address] Health Maintenance Due Date Last Done Comments [...] this encounter Medical Devices Implanted Type Area Proof Plate Maker Device Identifier Shelf Expiration Date Model / Serial / Lot Ring [employer] [id number] - [id number] Implanted:Qty: 1 on 08/09/2016 by Suha Harding MD at OR [facility] N/A: Heart [employer] 08/31/2019 [id number] / [id number] / [id number] documented as of this encounter Advance Directives [...]
--- OUTSIDE RECORDS SUMMARY | 2023-11-08 22:14 | External Medical Summary | Summary of Care ---
Author Name Unknown Organization [facility] Address [address] [place] [facility] [place] [address] Phone [phone] Care Team Providers Care Certified Massage Therapist Name Role Phone Unavailable Primary Care Provider Unavailabl e Reason for Referral * Evaluate & Treat - Unlimited Visits (Within 10 days (routine)) - Pending Review Specialty Diagnoses / Procedures Referred By Karlene valle Referred To Contact Paper Gluing Operator / Nutrition Services Diagnoses Gestational diabetes mellitus (GDM) in third trimester, gestational diabetes method of control unspecified Leatha Degroot PA-C [address] [place] [address] Referral ID Status Reason Start Date Expiration Date Visits Requested Visits Authorized [id number] Pending Review Specialty Services Required 10/11/2023 999 999 Question Answer Is the patient ? Yes Referral Priority Within 10 days (routine) Where should this appointment be scheduled? [facility] Comments This referral is for Diabetes Self-Management Training (DSMT) by a recognized [place] Diabetes Association (ADA) hospital educator: Nurse (RN), Registered Dietitian Relationship Advisor (RDN), and/or Diabetes Medical Nutrition Therapy (MNT) Management (dietitian only). Diabetes educators are responsible for assessing the participant's diabetes education needs, and providing diabetes self-management training in accordance with the standards set by the ADA for DSMT. Any adjustment in diabetes therapy will be made within the guidelines of standards of practice and [facility] approved policies and procedures. I understand that the hospital educator will keep me informed. Areas of [...] method of control unspecified Leatha Degroot PA-C [address] [place] [address] Referral ID Status Reason Start Date Expiration Date Visits Requested Visits Authorized [id number] Pending Review Specialty Services Required 10/11/2023 999 [...] st Contact Info) Description 10/05/2023 Telephone Gynecology/Obstetrics [facility] [address] [place] [address] Leatha Degroot PA-C [address] [place] [address] Test Results Allergies Active Allergy Reactions Criticality [...] Active Additional Information Patient taking differently: 2 [place] Nasal DAILY PRN, Reported on 11/04/2022 Buprenorphine [...] before eating.. 30 Capsule 1 10/04/2023 Active ArthaYantra Flex System w/Device Kit Use to test blood sugars 4 times daily (fasting, 1 hour after breakfast, lunch, and dinner) 1 Kit 0 10/11/2023 Active ArthaYantra In Vitro Strip (Glucose Blood) Use to test blood sugars 4 times daily (fasting, 1 hour after breakfast, lunch, and dinner) 125 Strip 6 10/11/2023 Active AppSame DelFleck Lancets 30G Use to test blood sugars [...] mgIndications:BLAKE (dyspnea on exertion),PHT (pulmonary hypertension) ([facility]),Mild persistent asthma with exacerbation 2.5 [...] Reports bipolar. Denies SI/HI. Obtained counseling through [facility]. Last Assessment & Plan: No meds, [...] valvular surgery after delivery, and in a kcir-ep-bsqx basis after evaluating the particular disease process [...] in January 2023. She reports that her furniture upholsterer apprentice said she had PH, but that they [...] her most recent echo on file from [facility] (performed in 07/2023), which demonstrated overall stable [...] reported some decrease in movement to the logging worker. complicated by subutex maintenance, an tepartum 05/18/2023 [...] child born at 35 weeks. Was on Rapelje in previous pregnancies. Last Assessment & Plan: [...] patients who previously received 17P. Patient's primary CELL PLASTERER can coordinate therapy if desired. For patients [...] breech then ERLTCS. Last in 2019 at [facility]. Desires repeat with tubal at [facility]. Last Assessment & Plan: CONSIDERATIONS: Reviewed that [...] ripening or induction of labor. History of [place] (myocardial infarction) 07/27/2018 Overview: [...] in 10 months. Using medical marijuana through [employer] 01/14/2020 Angy Chase RN 01/14/2020 nutrition Due [...] Date entered Entered by Date resolved [facility] breastpump form completed and faxed to [facility] for pt. 07/23/2020 Lisset Gonzalez RN [...] 10/06/2020 Overview: Delivered at 35w0d Previously on Rapelje Stopped at 36w Opioid dependence, uncomplicated 01/16/2019 [...] amphedamines, marijuana on tox screen 07/31/18 at [facility] ED Bipolar 1 disorder 07/12/2017 [...] money to get more. Sometimes true 11/2022 [place] Depression Scale Answer Date Recorded [place] Depression Scale Total 11 05/17/2023 The thought [...] encounter Miscellaneous Notes * Telephone Encounter - Angy Chase RN [...] has GDM. I placed referral back to [facility] for her to be seen for this [...] 10/18/2023 1:15 PM EST Appointment Cardiac Studies [facility] Advanced [place] [address] [place] [address] 10/20/2023 9:30 AM EST Office Visit Gynecology/Obstetrics [address] [address] Sharron Robertson CRNP [address] [place] [address] 10/26/2023 10:15 AM EST Office Visit Cardiology [facility] [address] [place] [address] Summer Cartagena CRNP [address] [place] [phone] 11/02/2023 11:30 AM EST Office Visit Gynecology/Obstetrics [facility] [address] [place] [address] Shantelle Richmond CRNP [address] [place] [address] 11/06/2023 5:10 PM EST Anticoagulation [facility] [address] [facility] [place] [place] [address] [facility] [address] [facility] [place] [address] 11/13/2023 9:00 AM EST Office Visit Gynecology/Obstetrics [facility] [address] [place] [address] Marcellus Lira MD [address] [place] [address] 11/15/2023 9:00 AM EST Office Visit Gynecology/Obstetrics [facility] [address] [place] [address] Marcellus Lira MD [address] [place] [address] 11/28/2023 9:00 AM EST Office Visit Gynecology/Obstetrics [facility] [address] [place] [address] Marcellus Lira MD [address] [place] [address] 12/06/2023 2:00 PM EST Office Visit Gynecology/Obstetrics [facility] [address] [place] [address] Shantelle Richmond CRNP [address] [place] [address] 12/11/2023 9:00 AM EDT Office Visit Gynecology/Obstetrics [facility] [address] [place] [address] Marcellus Lira MD [address] [place] [address] 12/21/2023 11:30 AM EDT Office Visit Gynecology/Obstetrics [facility] [address] [place] [address] BackerShantelle CRNP [address] [place] [address] Scheduled Orders Name Type Priority Associated Diagnoses [...] this encounter Medical Devices Implanted Type Area Lithoplate Maker Device Identifier Shelf Expiration Date Model / Serial / Lot Ring Triad [id number] - [id number] Implanted:Qty: 1 on 08/09/2016 by Suha Harding MD at OR [facility] N/A: Heart [employer] 08/31/2019 [id number] / [id number] / [id number] documented as of this encounter Visit Diagnoses [...] Code 08/09/2016 11:43 AM 08/13/2016 4:37 PM Th is order reflects the patients wishes and were consensually agreed upon. Full Code 07/29/2016 4:49 PM 08/09/2016 6:33 AM This order reflects the patients wishes and were consensually agreed upon.
--- OUTSIDE RECORDS SUMMARY | 2023-11-08 22:14 | External Medical Summary ---
Author Name Unknown Address Unknown Organization K0G:LABORATORY [facility] [address] - [address] [place] [id number] Laboratory Report Ordering Provider Test Date Status SHERRY ZHANG 10/11/2023 10:53:12 Final Observation Date Value Abnormality Reference (Units ) Status Glucose [Mass/volume] in Serum or Plasma --3 hours post dose glucose 10/11/2023 10:53:12 93 70-139 (mg/dL) Final Performing Location [facility] [address] [place] [id number]
--- OUTSIDE RECORDS SUMMARY | 2023-11-08 22:14 | External Medical Summary | Summary of Care ---
Author Name Unknown Organization [facility] Address [address] [facility] [place] [address] Phone [phone] Care Team Providers Care Professor Of Special Education Name Role Phone Unavailable Primary Care Provider Unavailabl e Reason for Visit * Reason Onset Date Comments Test Results 10/05/2023 Encounter Details Date Type Department Care Team (Late st Contact Info) Description 10/05/2023 Telephone Gynecology/Obstetrics [facility] [address] [place] [address] Lesa Degroot PA-C [address] [place] [address] Test Results Allergies Active Allergy Reactions Criticality [...] Active Additional Information Patient taking differently: 2 [place] Nasal DAILY PRN, Reported on 11/04/2022 Buprenorphine [...] (dyspnea on exertion),PHT (pulmonary hypertension) ([facility]),Mild persistent asthma with exacerbation 2.5 mg NEBULIZER Q4H PRN 09/01/2023 Active documented as of this encounter (statuses as of 10/11/2023) Active Problems Problem Noted Date Diagnosed Date Blood pressure elevated without history of HTN 1 11/07/2022 Food insecurity 08/14/2023 Overview: Per [facility] Protocol Supervision of high risk in [facility] 08/08/2023 Last Assessment & Plan: growth and fluid appropriate for gestational age. All visualized anatomy appears normal. BLAKE (dyspnea on exertion) 06/26/2023 Bipolar disease during 06/09/2023 Overview: Reports bipolar. Denies SI/HI. Obtained counseling through [facility]. Last Assessment & Plan: No meds, no concerns reported today. 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 S/p valve repair and denies any further issues. Also reports history of [place]. She had a negative heart catheterization at [...] valvular surgery after delivery, and in a xjue-cv-buwj basis after evaluating the particular disease process [...] in January 2023. She reports that her chief of surgery said she had PH, but that they [...] her most recent echo on file from [facility] (performed in 07/2023), which demonstrated overall [...] reported some decrease in movement to the paper conservator. complicated by subutex maintenance, an tepartum 05/18/2023 [...] patients who previously received 17P. Patient's primary FOOD TESTER can coordinate therapy if desired. For patients [...] breech then ERLTCS. Last in 2019 at [facility]. Desires [...] delivery at 36-37 weeks without amniocentesis per [employer]. Every effort should be made by patient s primary OB provider to obtain prior operative reports. As per [employer]'s 2010 practice [...] ripening or induction of labor. 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 Using medical marijuana through [facility] 01/14/2020 Angy Chase RN 01/14/2020 [...] Taken Date entered Entered by Date resolved [facility] breastpump form completed and faxed to [facility] for pt. 07/23/2020 Lisset Gonzalez RN [...] money to get more. Sometimes true 11/2022 [place] Depression Scale Answer Date Recorded [place] Depression Scale Total 11 05/17/2023 The thought [...] encounter Miscellaneous Notes * Telephone Encounter - Mercedez Valente RN - 10/05/2023 9:31 AM EST Patient made aware of message below. Patient verbalized understanding to all. Sent to scheduling toassist with this. * Telephone Encounter - Lesa Degroot PA-C - 10/05/2023 8:57 AM EST She did not pass 1 hour testing. Need to complete 3 hour screening. This time with fasting. Please let her know and provide instructions on completing this test. documented in this encounter Plan of Treatment Upcoming Encounters Date Type Department Care Team (Late st Contact Info) Description 10/18/2023 1:15 PM EST Appointment Cardiac Studies [facility] Advanced [place] [address] [place] [address] 10/20/2023 9:30 AM EST Office Visit Gynecology/Obstetrics [facility] [address] [place] [address] Sharron Robertson CRNP [address] [place] [address] 10/26/2023 10:15 AM EST Office Visit Cardiology [place] [address] [place] [address] Summer Cartagena CRNP [address] [place] [address] 11/02/2023 11:30 AM EST Office Visit Gynecology/Obstetrics [facility] [address] [place] [address] Shantelle Richmond CRNP [address] [place] [address] 11/06/2023 5:10 PM EST Anticoagulation Pharmacy, [address] [place] [address] [place], [facility] [place] [address] 11/13/2023 9:00 AM EST Office Visit Gynecology/Obstetrics [facility] [address] [place] [address] Marcellus Lira MD [address] [place] [address] 11/15/2023 9:00 AM EST Office Visit Gynecology/Obstetrics [facility] [address] [place] [address] Marcellus Lira MD [address] [place] [address] 11/28/2023 9:00 AM EST Office Visit Gynecology/Obstetrics [facility] [address] [place] [address] Marcellus Lira MD [address] [place] [address] 12/06/2023 2:00 PM EST Office Visit Gynecology/Obstetrics [facility] [address] [place] [address] Shantelle Richmond CRNP [address] [place] [address] 12/11/2023 9:00 AM EDT Office Visit Gynecology/Obstetrics [facility] [address] [place] [address] Marcellus Lira MD [address] [place] [address] 12/21/2023 11:30 AM EDT Office Visit Gynecology/Obstetrics [facility] [address] [place] [address] Shantelle Richmond CRNP [address] [place] [address] Health Maintenance Due Date Last Done Comments [...] this encounter Medical Devices Implanted Type Area Coffee Bar Attendant Device Identifier Shelf Expiration Date Model / Serial / Lot Ring Triad [id number] - [id number] Implanted:Qty: 1 on 08/09/2016 by Suha Harding MD at [place] [facility] N/A: Heart [employer] 08/31/2019 [id number] / [id number] / [id number] documented as of this encounter Visit Diagnoses Diagnosis Abnormal glucose affecting - Primary documented in this encounter Advance Directives [...]
--- OUTSIDE RECORDS SUMMARY | 2023-11-08 22:14 | External Medical Summary | Summary of Care ---
Author Name Unknown Organization [facility] Address [address] [place] [address] Phone [phone] Care Team Providers Care Applications Administrator Name Role Phone Unavailable Primary Care Provider Unavailabl e Encounter Details Date Type Department Care Team (Late st Contact Info) Description 10/05/2023 Result Scan Unspecified Department Justino Rey MD [address] [place] [address] <No scans attached> Allergies Active Allergy Reactions Criticality Noted Date Comments Sulfamethoxazole-Trimetho prim Nausea/vomiting Medium 01/19/2018 Nausea when taken with keflex Doxycycline Nausea/vomiting Medium 09/10/2018 Cephalexin Nausea/vomiting Medium 01/19/2018 Nausea when taken with bactrim documented as of this encounter (statuses as of 10/05/2023) Medications Medication Sig Dispensed Refills Start Date [...] Active Additional Information Patient taking differently: 2 [place] Nasal DAILY PRN, Reported on 11/04/2022 Buprenorphine [...] as of this encounter (statuses as of 10/05/2023) Active Problems Problem Noted Date Diagnosed Date Blood pressure elevated without history of HTN 1 11/07/2022 Food insecurity 08/14/2023 Overview: Per [facility] Protocol Supervision of high risk in [facility] 08/08/2023 Last Assessment & Plan: growth and fluid appropriate for gestational age. All visualized anatomy appears normal. BLAKE (dyspnea on exertion) 06/26/2023 Bipolar disease during 06/09/2023 Overview: Reports bipolar. Denies SI/HI. Obtained counseling through [facility]. Last Assessment & Plan: No meds, no concerns reported today. 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 S/p valve repair and denies any further issues. Also reports history of [place]. She had a negative heart catheterization at [...] valvular surgery after delivery, and in a ffsj-os-kcje basis after evaluating the particular disease process [...] in January 2023. 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 complicated by subutex maintenance, an tepartum 05/18/2023 [...] patients who previously received 17P. Patient's primary LOSS PREVENTION GUARD can coordinate therapy if desired. For patients [...] breech then [place]RLTCS. [place] [facility] Desires repeat with [place]al [place] [facility]. Last Assessment & Plan: [...] ripening or induction of labor. History of [place] (myocardial infarction) 07/27/2018 Overview: Age 27, s/p [...] as of this encounter (statuses as of 10/05/2023) Resolved Problems Problem Noted Date Diagnosed Date [...] in 10 months. Using medical marijuana through [facility] 01/14/2020 Angy hCase RN 01/14/2020 nutrition Due date letter given [...] Taken Date entered Entered by Date resolved [facility] breastpump form completed and faxed to [facility] for pt. 07/23/2020 Lisset Gonzalez RN 07/23/2020 [...] 10/06/2020 Overview: Delivered at 35w0d Previously on [place] Stopped at 36w Opioid dependence, uncomplicated 01/16/2019 [...] marijuana on tox screen 07/31/18 at [facility] ED Bipolar 1 disorder 07/12/2017 8 Attention [...] as of this encounter (statuses as of 10/05/2023) Immunizations Name Administration Dates Next Due COVID-19 [...] money to get more. Sometimes true 11/2022 [place] Depression Scale Answer Date Recorded [place] Depression Scale Total 11 05/17/2023 The thought [...] Description 10/11/2023 7:40 AM EST Laboratory Laboratory, [facility] [address] [place] [phone] EnnisD[place]i churchill [address] [place] [address] 10/18/2023 1:15 PM EST Appointment Cardiac Studies [facility], [address] [place] [address] 10/20/2023 9:30 AM EST Office Visit Gynecology/Obstetrics [facility] [address] [place] [address] Sharron Robertson CRNP [address] [place] [address] 10/26/2023 10:15 AM EST Office Visit Cardiology [facility] [address] [place] [address] Summer Cartagena CRNP [address] [place] [phone] 11/02/2023 11:30 AM EST Office Visit Gynecology/Obstetrics [facility] [address] [place] [address] Shantelle Richmond CRNP [address] [place] [address] 11/06/2023 5:10 PM EST [facility] [address] [place] [address] [place] [address] [place] [address] 11/13/2023 9:00 AM EST Office Visit Gynecology/Obstetrics [facility] [address] [place] [address] Marcellus Lira MD [address] [place] [address] 11/15/2023 9:00 AM EST Office Visit Gynecology/Obstetrics [facility] [address] [place] [address] Marcellus Lira MD [address] [place] [address] 11/28/2023 9:00 AM EST Office Visit Gynecology/Obstetrics [facility] [address] [place] [address] Marcellus Lira MD [address] [place] [address] 12/06/2023 2:00 PM EST Office Visit Gynecology/Obstetrics [facility] [address] [place] [address] Shantelle Richmond CRNP [address] [place] [address] 12/11/2023 9:00 AM EDT Office Visit Gynecology/Obstetrics [facility] [address] [place] [address] Marcellus Lira MD [address] [place] [address] 12/21/2023 11:30 AM EDT Office Visit Gynecology/Obstetrics [facility] [address] [place] [address] Shantelle Richmond CRNP [address] [place] [address] Health Maintenance Due Date Last Done Comments [...] this encounter Medical Devices Implanted Type Area Senior Marketing Data Analyst Device Identifier Shelf Expiration Date Model / Serial / Lot Ring Triad [id number] - [id number] Implanted:Qty: 1 on 08/09/2016 by Suha Harding MD [place] [facility] N/A: Heart [employer] 08/31/2019 [id number] / [id number] / [id number] documented as of this encounter Procedures Procedure Name Priority Date/Time Associated Diagnosis Comments PROCEDURE SCANNED RESULT 10/05/2023 PROCEDURE SCANNED RESULT 10/05/2023 documented in this encounter Results * PROCEDURE SCANNED RESULT (10/05/2023) 10/05/2023 Justino Rey MD SURGERY * PROCEDURE SCANNED RESULT (10/05/2023) 10/05/2023 Justino Rey MD SURGERY documented in this encounter Advance Directives Latest [...]
--- OUTSIDE RECORDS SUMMARY | 2023-11-08 22:14 | External Medical Summary ---
Author Name Unknown Address Unknown Organization K0[facility] - [address] [place] [id number] Laboratory Report Ordering Provider Test Date Status SHERRY ZHANG 10/11/2023 09:50:50 Final Observation Date Value Abnormality Reference (Units ) Status Glucose, 2-hr post glucose challenge 10/11/2023 09:50:50 170 Above high normal 70-154 (mg/dL) Final Performing Location LABORATORY [facility] [place] [address] [place] [id number]
--- OUTSIDE RECORDS SUMMARY | 2023-11-08 22:15 | External Medical Summary ---
Author Name Unknown Address Unknown Organization K01:LABORATORY [facility] - [address] [facility] [place]. [facility] [address] Laboratory Report Ordering Provider Test Date Status SHERRY ZHANG 10/04/2023 11:18:57 Final Observation Date Value Abnormality Reference (Units ) Status Treponema pallidum Ab [Presence] in Serum by Immunoassay 10/04/2023 11:18:57 Nonreactive Nonreactive Final No serologic evidence of syp hilis. No additional testing clinicially indicated at this time. Consider repeat testing in 2-4 weeks if acute or primary syphilis is suspected. Performing Location LABORATORY [facility] - [address] [place] [address]
--- OUTSIDE RECORDS SUMMARY | 2023-11-08 22:15 | External Medical Summary ---
Author Name Unknown Address Unknown Organization K01:[facility] [place] [address] [place] [address] Laboratory Report Ordering Provider Test Date Status PAUL MCINTYRE 10/04/2023 11:18:57 Final Observation Date Value Abnormality Reference (Units ) Status MYCODE SPECIMEN-SST 10/04/2023 11:18:57 Freezing of extracted DNA, whole blood and/or serum. Final Performing Location LABORATORY [facility] - [address] [place] [address]
--- OUTSIDE RECORDS SUMMARY | 2023-11-08 22:15 | External Medical Summary | Summary of Care ---
Author Name Unknown Organization [facility] Address [address] [place] [address] Phone [phone] Care Team Providers Care Wheel Polisher Name Role Phone Unavailable Primary Care Provider Unavailabl e Reason for Visit * Reason Onset Date Comments Medication Refill 10/02/2023 Encounter Details Date Type Department Care Team (Late st Contact Info) Description 10/02/2023 Refill Gynecology/Obstetrics [facility] [address] [place] [address] Lesa Degroot PA-C [address] [place] [address] Nausea and vomiting during Allergies Active Allergy Reactions Criticality Noted Date Comments Sulfamethoxazole-Trimetho prim Nausea/vomiting Medium 01/19/2018 Nausea when taken with keflex Doxycycline Nausea/vomiting Medium 09/10/2018 Cephalexin Nausea/vomiting Medium 01/19/2018 Nausea when taken with bactrim documented as of this encounter (statuses as of 10/04/2023) Medications Medication Sig Dispensed Refills Start Date End Date Status albuterol sulfate (PROVENTIL) (2.5 MG/3ML) 0.083% nebulizer solutionIndications :Bronchitis, complicated Inhale 1 Vial via nebulizer every 4 hours as needed for Wheezing. 120 Vial 11 06/13/2018 Active Nebulizers (NEBULIZER COMPRESSOR) MISCIndications:Bro nchitis, complicated Inhale via nebulizer. Use as directed. 1 Each 1 06/13/2018 Active albuterol HFA (VENTOLIN HFA) 108 (90 BASE) MCG/ACT inhalerIndications: Severe persistent asthma with acute exacerbation Inhale 2 Puffs by mouth every 4 hours as needed for Shortness of Breath. 1 Inhaler 1 01/16/2019 Active Fluticasone Propionate 50 MCG/ACT Nasal Suspension (Flonase)Indication s:Other non-recurrent acute nonsuppurative otitis media of left ear,Post-nasal drip SPRAY 2 SPRAYS INTO EACH NOSTRIL EVERY DAY 48 mL 3 10/07/2022 Active Additional Information Patient taking differently: 2 [place] Nasal DAILY PRN, Reported on 11/04/2022 Buprenorphine HCl 2 MG Sublingual Tablet Sublingual (Subutex) Place 1 Tablet under the tongue in the morning. 0 Active Complete Oral Capsule Therapy Pack Take by mouth. 0 Active Vitamin B-6 25 MG Oral Tablet Take by mouth. 0 Active Enoxaparin Sodium 40 MG/0.4ML Injection Solution Prefilled Syringe (Lovenox)Indication s:History of pulmonary embolism,H/O tricuspid valve repair Inject 40 mg under the skin in the morning. Transition to heparin at 36 weeks gestation. 12 mL 5 06/19/2023 Active valACYclovir HCl 500 MG Oral Tablet (Valtrex)Indication s:Genital herpes simplex, unspecified site Take 1 Tablet by mouth in the morning. 30 Tablet 3 07/06/2023 Active Ondansetron 4 MG Oral Tablet Disintegrating (Zofran) Place 1 Tablet on tongue every 8 hours as needed for Nausea. dissolve on tongue. 30 Tablet 1 08/13/2023 4 Discontinue d(Refill) Promethazine HCl 25 MG Rectal Suppository (Phenergan)Indicati ons:Nausea and vomiting during Administer 1 Suppository into the rectum every 6 hours as needed for Nausea. 20 Each 0 09/28/2023 4 Discontinue d(Refill) Hospital, Clinic, or Other Facility Administered Medication [...] as of this encounter (statuses as of 10/04/2023) Active Problems Problem Noted Date Diagnosed Date Blood pressure elevated without history of HTN 1 11/07/2022 Food insecurity 08/14/2023 Overview: Per [facility] Protocol Supervision of high risk in [facility] 08/08/2023 Last Assessment & Plan: growth and fluid appropriate for gestational age. All visualized anatomy appears normal. BLAKE (dyspnea on exertion) 06/26/2023 Bipolar disease during 06/09/2023 Overview: Reports bipolar. Denies SI/HI. Obtained counseling through [facility]. Last Assessment & Plan: No meds, [...] valvular surgery after delivery, and in a kgjs-[id number] basis after evaluating the particular disease process [...] in January 2023. 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 complicated by subutex maintenance, an tepartum 05/18/2023 [...] child born at 35 weeks. Was on [place] in previous pregnancies. Last Assessment & Plan: [...] patients who previously received 17P. Patient's primary EXPEDITIONARY FIGHTING VEHICLE CREWMAN can coordinate therapy if desired. For patients [...] seeking counseling. On wait list 05/17/2023 Angy hCase RN 05/17/2023 Drug use, h/o clean since [...] breech then ERLTCS. Last in 2019 at [facility]. Desires repeat with tubal at [facility]. Last Assessment & Plan: [...] ripening or induction of labor. History of MT (myocardial infarction) 07/27/2018 Overview: [...] as of this encounter (statuses as of 10/04/2023) Resolved Problems Problem Noted Date Diagnosed Date [...] in 10 months. Using medical marijuana through [facility] 01/14/2020 Angy Chase RN 01/14/2020 [...] Taken Date entered Entered by Date resolved [facility] breastpump form completed and faxed to [facility] for pt. 07/23/2020 Lisset Gonzalez RN 07/23/2020 [...] 10/06/2020 Overview: Delivered at 35w0d Previously on [place] Stopped at 36w Opioid dependence, uncomplicated 01/16/2019 [...] as of this encounter (statuses as of 10/04/2023) Immunizations Name Administration Dates Next Due COVID-19 [...] the money to buy more. Sometimes true 11 /11/2022 Within the past 12 months, t he food you bought just didn't last and you didn't have money to get more. Sometimes true 11/2022 [place] Depression Scale Answer Date Recorded [place] Depression Scale Total 11 05/17/2023 The thought [...] Telephone Encounter - Lesa Degroot PA-C - 10/04/2023 1:58 PM EST Patient seen today and Rx sent. * Telephone Encounter - Soniya Cotto LPN - 10/03/2023 11:11 AM ESTPending Prescriptions: Disp Refills Promethazine HCl 25 MG Rectal Suppository *20 Each0 Sig: Administer 1 Suppository into the rectum every 6 hours as needed for Nausea. documented in this encounter Plan of Treatment Upcoming Encounters Date Type Department Care Team (Late st Contact Info) Description 10/05/2023 8:30 AM EST PulmDiagnostic Pulmonary Function Lab, [facility] [address] [place] [address] [place], [address] [facility] [place] [address] 10/18/2023 1:15 PM EST Appointment Cardiac Studies [facility], [address] [address] 10/20/2023 9:30 AM EST Office Visit Gynecology/Obstetrics [facility] [address] [facility] [place] [address] Sharron Robertson CRNP [facility] [place] [address] 10/26/2023 10:15 AM EST Office Visit [facility], [address] [address] Summer Cartagena CRNP [address] [facility] [place] [address] 11/02/2023 11:30 AM EST Office Visit Gynecology/Obstetrics [facility] 132 [facility] [place] [address] Shantelle Richmond CRNP [address] [place] [address] 11/06/2023 5:10 PM EST Anticoagulation [facility] [address] [facility] [place] [address] [facility] [address] [facility] [place] [address] 11/13/2023 9:00 AM EST Office Visit Gynecology/Obstetrics [facility] [address] [place] [address] Marcellus Lira MD [address] [place] [address] 11/15/2023 9:00 AM EST Office Visit Gynecology/Obstetrics [facility] [address] [place] [address] Marcellus Lira MD [address] [place] [address] 11/28/2023 9:00 AM EST Office Visit Gynecology/Obstetrics [facility] [address] [place] [address] Marcellus Lira MD [address] [place] [address] 12/06/2023 2:00 PM EST Office Visit Gynecology/Obstetrics [facility] [address] [place] [address] Shantelle Richmond CRNP [address] [place] [address] 12/11/2023 9:00 AM EDT Office Visit Gynecology/Obstetrics [facility] [address] [place] [address] Marcellus Lira MD [address] [place] [address] 12/21/2023 11:30 AM EDT Office Visit Gynecology/Obstetrics [facility] [address] [place] [address] [place], NICKOLAS Mattson [address] [place] [address] Health Maintenance Due Date Last Done Comments [...] this encounter Medical Devices Implanted Type Area Him Analyst Device Identifier Shelf Expiration Date Model / Serial / Lot Ring Triad [id number] - [id number] Implanted:Qty: 1 on 08/09/2016 by Suha Harding MD at OR [facility] N/A: Heart [employer] 08/31/2019 [id number] / [id number] / [id number] documented as of this encounter Visit Diagnoses [...]
--- OUTSIDE RECORDS SUMMARY | 2023-11-08 22:15 | External Medical Summary | Summary of Care ---
Author Name Unknown Organization [facility] Address [address] [place] [address] Phone [phone] Care Team Providers Care Salt Lifter Name Role Phone Unavailable Primary Care Provider Unavailabl e Reason for Visit * Reason Comments Ultrasound Encounter Details Date Type Department Care Team (Late st Contact Info) Description 10/03/2023 2:30 PM EST Office Visit Hunting Sales Leader Obstetrics [facility], [place] [address] [place], [place] [id number] Cristino Garcia, [address] [place], [place] [id number] PHT (pulmonary hypertension) ([facility])*; complicated by subutex maintenance, antepartum (HCC); Chronic hepatitis C affecting antepartum care of mother ([facility]); History of pulmonary embolism; Maternal asthma complicating ; History of delivery; 28 weeks gestation of Allergies Active Allergy Reactions Criticality Noted Date Comments Sulfamethoxazole-Trimetho prim Nausea/vomiting Medium 01/19/2018 Nausea when taken with keflex Doxycycline Nausea/vomiting Medium 09/10/2018 Cephalexin Nausea/vomiting Medium 01/19/2018 Nausea when taken with bactrim documented as of this encounter (statuses as of 10/03/2023) Medications Medication Sig Dispensed Refills Start Date End Date Status albuterol sulfate (PROVENTIL) (2.5 MG/3ML) 0.083% nebulizer solutionIndications:hermes Robertson Inhale 1 Vial via nebulizer every 4 [...] Active Additional Information Patient taking differently: 2 [place] Nasal DAILY PRN, Reported on 11/04/2022 Buprenorphine [...] dissolve on tongue. 30 Tablet 1 08/13/2023 Active Promethazine HCl 25 MG Rectal Suppository (Phenergan)Indication s:Nausea and vomiting during Administer 1 Suppository into the rectum every 6 hours as needed for Nausea. 20 Each 0 09/28/2023 Active Hospital, Clinic, or Other Facility Administered [...] 2.5 mgIndications:BLAKE (dyspnea on exertion),PHT (pulmonary hypertension) ([facility]),Mild persistent asthma with exacerbation 2.5 mg NEBULIZER Q4H PRN 09/01/2023 Active documented as of this encounter (statuses as of 10/03/2023) Active Problems Problem Noted Date Diagnosed Date Blood pressure elevated without history of HTN 1 11/07/2022 Food insecurity 08/14/2023 Overview: Per [facility] Protocol Supervision of high risk in [facility] 08/08/2023 Last Assessment & Plan: growth and fluid appropriate for gestational age. All visualized anatomy appears normal. BLAKE (dyspnea on exertion) 06/26/2023 Bipolar disease during 06/09/2023 Overview: Reports bipolar. Denies SI/HI. Obtained counseling through [facility]. Last Assessment & Plan: No meds, no [...] valvular surgery after delivery, and in a [id number]-[id number] basis after evaluating the particular disease process [...] in January 2023. She reports that her pulmonary specialist said she had PH, but that [...] her most recent echo on file from [facility] (performed in 07/2023), which demonstrated overall [...] reported some decrease in movement to the systems architecture analyst. complicated by subutex maintenance, an tepartum [...] child born at 35 weeks. Was on [place] in previous pregnancies. Last Assessment & Plan: [...] patients who previously received 17P. Patient's primary CARPENTER ROUGH can coordinate therapy if desired. For patients [...] any current needs or questions 08/09/2023 Angy hCase RN 08/09/2023 Problem Action Taken Date entered [...] 2019 at [facility]. Desires repeat with tubal at [facility]. Last Assessment & Plan: [...] as of this encounter (statuses as of 10/03/2023) Resolved Problems Problem Noted Date Diagnosed Date [...] in 10 months. Using medical marijuana through [facility] 01/14/2020 Angy Chase RN 01/14/2020 [...] entered Entered by Date resolved [facility] breastpump form completed and faxed to [facility] for pt. 07/23/2020 Lisset Gonzalez [...] 10/06/2020 Overview: Delivered at 35w0d Previously on [place] Stopped at 36w Opioid dependence, uncomplicated 01/16/2019 [...] marijuana on tox screen 07/31/18 at [facility] ED Bipolar 1 disorder 07/12/2017 8 [...] as of this encounter (statuses as of 10/03/2023) Immunizations Name Administration Dates Next Due COVID-19 [...] money to get more. Sometimes true 11/2022 [place] Depression Scale Answer Date Recorded [place] Depression Scale Total 11 05/17/2023 The thought [...] as of this encounter Progress Notes * Cristino Garcia, - 10/03/2023 6:37 PM EST MATERNAL MEDICINE VISIT Nancy Hernandez is at 28w2d who presents to [facility] for an ultrasound and follow-up of her high risk . REVIEW OF SYSTEMS: nausea/vomiting: reports frequent n/v PHYSICAL EXAM: General: pleasant, alert and oriented, no acute distress She is being seen today by Maternal- Medicine for the following reasons: Problem List Items Addressed This Visit complicated by subutex maintenance, antepartum (HCC) (Chronic) Chronic hepatitis C affecting antepartum care of mother (HCC) (Chronic) PHT (pulmonary hypertension) (HCC) - Primary (Chronic) She presents for follow-up of growth. She has a history of pulmonary HTN, Subutex use, HCV, ahistory of PE now treated with Lovenox, asthma, and a prior delivery. She has been following with cardiology and pulmonology. I reviewed her most recent echo on file from [facility] (performed in 07/2023), which demonstrated overall [...] reported some decrease in movement to the systems architecture analyst. History of pulmonary embolism History of delivery Maternal asthma complicating Other Visit Diagnoses 28 weeks gestation of We reviewed today's ultrasound findings. (For full report, please refer to ultrasound report provided separately). Ms. Hernandez's questions were answered to her satisfaction. RECOMMENDATIONS: Recommend follow up ultrasound with MFM in 4 weeks for growth. Thank you for allowing us to participate in the care of this patient. Please call with any questions. Cristino Garcia DO 10/03/2023 6:37 PM documented in this encounter Nursing Notes * Angy Rivera, MED ASSIST - 10/03/2023 2:50 PM EST Nancy states she has been seen twice in the ER at [facility] recently due to excessive vomiting. documented in this encounter Miscellaneous Notes * Assessment & Plan Note - Jose Cristino GannDO - 10/03/2023 6:34 PM EST Associated Problem(s): PHT (pulmonary hypertension) (HCC) She presents for follow-up of growth. She has a history of pulmonary HTN, Subutex use, HCV, ahistory of PE now treated with Lovenox, asthma, and a prior delivery. She has been following with cardiology and pulmonology. I reviewed her most recent echo on file from [facility] (performed in 07/2023), which demonstrated overall [...] reported some decrease in movement to the systems architecture analyst. documented in this encounter Plan of Treatment Upcoming Encounters Date Type Department Care Team (Late st Contact Info) Description 10/04/2023 10:10 AM EST Laboratory Laboratory, [facility] [address] [place] [phone] Deepti Ennis [address] [place] [address] 10/04/2023 10:30 AM EST Office Visit Gynecology/Obstetrics [facility] [address] [place], [place] [address] Lesa Degroot PA-C [address] [place], [place] [address] 10/04/2023 1:00 PM EST PulmDiagnostic Pulmonary Function Lab, [facility] [address] [place] [address] West, [address]ft [address] [place] [address] 10/18/2023 1:15 PM EST Appointment Cardiac Studies [facility] [place] [address] [place] [address] 10/20/2023 9:30 AM EST Office Visit Gynecology/Obstetrics [facility] [address] [facility] [place] [address] Sharron Robertson CRNP [address] [place] [address] 10/26/2023 10:15 AM EST Office Visit [facility], [place] [address] [place] [address] Summer Cartagena CRNP [address] [place] [address] 11/02/2023 11:30 AM EST Office Visit Gynecology/Obstetrics [facility] [address] [place] [address] Shantelle Richmond CRNP [address] [place] [address] 11/06/2023 5:10 PM EST Anticoagulation Pharmacy, [place] [address] [address] [facility] [address] [facility] [address] [place] [address] 11/13/2023 9:00 AM EST Office Visit Gynecology/Obstetrics [facility] [address] [place] [address] Marcellus Lira MD [address] [place] [address] 11/15/2023 9:00 AM EST Office Visit Gynecology/Obstetrics [facility] [address] [place] [address] Marcellus Lira MD [address] [place] [address] 11/28/2023 9:00 AM EST Office Visit Gynecology/Obstetrics [facility] [address] [place] [address] Marcellus Lira MD [address] [place] [address] 12/06/2023 2:00 PM EST Office Visit Gynecology/Obstetrics [facility] [address] [place] [address] Shantelle Richmond CRNP [address] [place] [address] 12/11/2023 9:00 AM EDT Office Visit Gynecology/Obstetrics [facility] [address] [place] [address] Marcellus Lira MD [address] [place] [address] 12/21/2023 11:30 AM EDT Office Visit Gynecology/Obstetrics [facility] [address] [place] [address] Shantelle Richmond CRNP [address] [place] [address] Health Maintenance Due Date Last Done Comments Pneumococcal Vaccine: Pediatrics (0 to 5 Years) and At-Risk Patients (6 to 64 Years) (2 - PCV) 10/01/2020 10/01/2019, 02/11/2014 COVID-19 Vaccine (3 - 2022-24 season) 2023 03/12/2022, 02/10/2022 Depression Screening 11/17/2023 11/17/2022, 07/12/20 17 Pap Smear 08/09/2025 08/09/2022, 10/02, 10/15/2019, Additional history exists Cervical Cancer Screening 08/09/2027 HPV/Co-Test 08/09/2027 08/09/2022 DTaP,Tdap,and Td Vaccines (8 - Td or Tdap) 06/11/2030 06/11/2020, 09/05/2018, 12/27/2002, Additional history exists GARDASIL-HPV IMMUNIZATION SERIES Completed 07/14/2011, 07/14/2011, 03/15/2011, Additional history exists Hepatitis B Completed 01/30/2019, 11/02, 09/15/1997, Additional history exists Influenza Vaccine (FLU shot) Completed 05/2023, 06/30/2022, 08/30/2021, Additional history exists MENINGOCOCCAL (MENACTRA/MENVEO) Aged Out No longer eligible based on patient's age to complete this topic documented as of this encounter Medical Devices Implanted Type Area Informatics Scientist Device Identifier Shelf Expiration Date Model / Serial / Lot Ring Triad [id number] - [id number] Implanted:Qty: 1 on 08/09/2016 by Suha Harding MD at OR [facility] [place] N/A: Heart [employer] 08/31/2019 [id number] / [id number] / [id number] documented as of this encounter Visit Diagnoses Diagnosis PHT (pulmonary hypertension) (HCC)- Primary Other chronic pulmonary heart diseases complicated by subutex maintenance, antepartum (HCC) Chronic hepatitis C affecting antepartum care of mother (HCC) Other maternal viral disease, antepartum History of pulmonary embolism Personal history of pulmonary embolism Maternal asthma complicating Other current maternal conditions classifiable elsewhere, complicating , childbirth, or the puerperium, unspecified as to episode of care History of delivery 28 weeks gestation of state, incidental documented in [...]
--- OUTSIDE RECORDS SUMMARY | 2023-11-08 22:15 | External Medical Summary | Summary of Care ---
Author Name Unknown Organization [facility] Address [address] [place] [address] Phone [phone] Care Team Providers Care Food Handler Name Role Phone Unavailable Primary Care Provider Unavailabl e Reason for Visit * Reason Comments Outpatient Testing Encounter Details Date Type Department Care Team (Late st Contact Info) Description 10/04/2023 10:10 AM EST Laboratory Laboratory, [facility] [address] [place] [id number] [facility] [address] [place] [address] [employer] Other*[id number]; Supervision of high risk in second trimester Allergies Active Allergy Reactions Criticality Noted [...] (VENTOLIN HFA) 108 (90 BASE) MCG/ACT inhalerIndications:Se talamantes persistent asthma with acute exacerbation Inhale 2 Puffs by mouth every 4 hours as needed for Shortness of Breath. 1 Inhaler 1 01/16/2019 Active Fluticasone Propionate 50 MCG/ACT Nasal Suspension (Flonase)Indications: Other non-recurrent acute nonsuppurative otitis media of left ear,Post-nasal drip SPRAY 2 SPRAYS INTO EACH NOSTRIL EVERY DAY 48 mL 3 10/07/2022 Active Additional Information Patient taking differently: 2 [place] Nasal DAILY PRN, Reported on 11/04/2022 Buprenorphine [...] on tongue. 30 Tablet 1 08/13/2023 Active Hospital, Clinic, or Other Facility Administered [...] 1 11/07/2022 Food insecurity 08/14/2023 Overview: Per [facility] Protocol Supervision of high risk in second tri mester 08/08/2023 Last Assessment & Plan: growth and fluid appropriate for gestational age. All visualized anatomy appears normal. BLAKE (dyspnea on exertion) 06/26/2023 Bipolar disease during 06/09/2023 Overview: Reports bipolar. Denies SI/HI. Obtained counseling through [facility]. Last Assessment & Plan: No meds, [...] valvular surgery after delivery, and in a ebmg-do-wbla basis after evaluating the particular disease process [...] in January 2023. She reports that her leadership program intern said she had PH, but that they [...] her most recent echo on file from [facility] (performed in 07/2023), which demonstrated overall [...] reported some decrease in movement to the telegraphic typewriter installer. complicated by subutex maintenance, an tepartum 05/18/2023 [...] patients who previously received 17P. Patient's primary 3RD GRADE TEACHER can coordinate therapy if desired. For patients with a history of delivery/prolonged PROM after 34 weeks, we do not recommend cervical length monitoring. Maternal asthma complicating 08/17/202 3 Overview: Reports inhaler use as needed. [place] [facility] Last Assessment & Plan: CONSIDERATIONS: Reviewed that [...] delivery at 36-37 weeks without amniocentesis per [employer]. Every effort should be made by patient s primary OB provider to obtain prior operative reports. As per [employer]'s 2010 practice [...] in 10 months. Using medical marijuana through [employer] 01/14/2020 Angy Chase RN 01/14/2020 nutrition Due [...] Taken Date entered Entered by Date resolved [facility] breastpump form completed and faxed to [facility] for pt. 07/23/2020 Lisset Gonzalez RN [...] 10/06/2020 Overview: Delivered at 35w0d Previously on [place] Stopped at 36w Opioid dependence, uncomplicated 01/16/2019 [...] amphedamines, marijuana on tox screen 07/31/18 at [facility] ED Bipolar 1 disorder 07/12/2017 8 [...] money to get more. Sometimes true 11/2022 [place] Depression Scale Answer Date Recorded [place] Depression Scale Total 11 05/17/2023 The thought [...] 8:30 AM EST PulmDiagnostic Pulmonary Function Lab, [facility] [address] [place] [address] [address] [address] 10/18/2023 1:15 PM EST Appointment Cardiac Studies [facility] [address] [place] [address] 10/20/2023 9:30 AM EST Office Visit Gynecology/Obstetrics [facility] [address] [address] Sharron Robertson CRNP [address] [place] [address] 10/26/2023 10:15 AM EST Office Visit Cardiology [facility] [address] [place] [address] Summer Cartagena CRNP [address] [place] [phone] 11/02/2023 11:30 AM EST Office Visit Gynecology/Obstetrics [facility] [address] [place] [address] Shantelle Richmond CRNP [address] [place] [address] 11/06/2023 5:10 PM EST [facility] [address] [place] [address] [place] [address] [place] [address] 11/13/2023 9:00 AM EST Office Visit Gynecology/Obstetrics [facility] [address] [place] [address] Marcellus Lira MD [address] [place] [address] 11/15/2023 9:00 AM EST Office Visit Gynecology/Obstetrics [facility] [address] [place] [address] Marcellus Lira MD [address] [place] [address] 11/28/2023 9:00 AM EST Office Visit Gynecology/Obstetrics [facility] [address] [place] [address] Marcellus Lira MD [address] [place] [address] 12/06/2023 2:00 PM EST Office Visit Gynecology/Obstetrics [facility] [address] [place] [address] Shantelle Richmond CRNP [address] [place] [address] 12/11/2023 9:00 AM EDT Office Visit Gynecology/Obstetrics [facility] [address] [place] [address] Marcellus Lira MD [address] [place] [address] 12/21/2023 11:30 AM EDT Office Visit Gynecology/Obstetrics [facility] [address] [place] [address] Shantelle Richmond CRNP [address] [place] [address] Pending Results Name Type Priority Associated Diagnoses Date /Time MYCODE SUBSEQUENT ADULT Lab Routine [employer] Other*[id number] 10/04/2023 11:18 AM EST SYPHILIS ANTIBODY SCREEN WITH REFLEX TO RPR Lab Routine Supervision of high risk in second trimester 10/04/2023 11:18 AM EST 50-G GESTATIONAL GLUCOSE, 1 HOUR Lab Routine Supervision of high risk in second trimester 10/04/2023 11:18 AM EST MYCODE SST1 Lab Routine [employer] Other*[id number] 10/04/2023 11:18 AM EST MYCODE SST2 Lab Routine [employer] Other*[id number] 10/04/2023 11:18 AM EST SYPHILIS ANTIBODY SCREEN Lab Routine Supervision of high risk in second trimester 10/04/2023 11:18 AM EST Health Maintenance Due Date Last [...] this encounter Medical Devices Implanted Type Area Sales Advisory Manager Device Identifier Shelf Expiration Date Model / Serial / Lot Ring Triad [id number] - [id number] Implanted:Qty: 1 on 08/09/2016 by Suha Haridng [place] [facility] Heart [employer] 08/31/2019 [id number] / [id number] / [id number] documented as of this encounter Visit Diagnoses Diagnosis [employer] Other*[id number] Supervision of high risk in second trimester Unspecified high-risk documented in this encounter [...]
--- OUTSIDE RECORDS SUMMARY | 2023-11-08 22:15 | External Medical Summary | Summary of Care ---
Author Name Unknown Organization [facility] Address [address] [place] [facility] [place] [address] Phone [phone] Care Team Providers Care Casting Machine Service Operator Name Role Phone Unavailable Primary Care Provider Unavailabl e Reason for Visit * Reason Onset Date Comments Test Results 10/05/2023 Encounter Details Date Type Department Care Team (Late st Contact Info) Description 10/05/2023 Telephone Gynecology/Obstetrics [facility] [address] [place] [address] Lesa Degroot PA-C [address] [place] [address] Test Results Allergies Active Allergy Reactions Criticality [...] Active Additional Information Patient taking differently: 2 [place] Nasal DAILY PRN, Reported on 11/04/2022 Buprenorphine [...] 2.5 mgIndications:BLAKE (dyspnea on exertion),PHT (pulmonary hypertension) ([facility]),Mild persistent asthma with exacerbation 2.5 mg NEBULIZER Q4H PRN 09/01/2023 Active documented as of this encounter (statuses as of 10/05/2023) Active Problems Problem Noted Date Diagnosed Date Blood pressure elevated without history of HTN 1 11/07/2022 Food insecurity 08/14/2023 Overview: Per [facility] Protocol Supervision of high risk in [facility] 08/08/2023 Last Assessment & Plan: growth and fluid appropriate for gestational age. All visualized anatomy appears normal. BLAKE (dyspnea on exertion) 06/26/2023 Bipolar disease during 06/09/2023 Overview: Reports bipolar. Denies SI/HI. Obtained counseling through [facility]. Last Assessment & Plan: No meds, no [...] valvular surgery after delivery, and in a aqzx-qq-acie basis after evaluating the particular disease process [...] in January 2023. She reports that her publication designer said she had PH, but that they [...] her most recent echo on file from [facility] (performed in 07/2023), which demonstrated overall stable [...] reported some decrease in movement to the product designer. complicated by subutex maintenance, an tepartum 05/18/2023 [...] child born at 35 weeks. Was on [place] in previous pregnancies. Last Assessment & Plan: [...] patients who previously received 17P. Patient's primary SHOES SALESPERSON can coordinate therapy if desired. For patients [...] then ERLTCS. [place] [facility] Desires repeat with [place]al [place] [facility]. Last Assessment & Plan: CONSIDERATIONS: Reviewed that [...] delivery at 36-37 weeks without amniocentesis per [employer]. Every effort should be made by patient s primary OB provider to obtain prior operative reports. As per [employer]'s 2010 practice [...] in 10 months. Using medical marijuana through [facility] [facility] 01/14/2020 Angy Chase RN 01/14/2020 [...] Date entered Entered by Date resolved [facility] breastpump form completed and faxed to [facility] for pt. 07/23/2020 Lisset Gonzalez RN 07/23/2020 [...] marijuana on tox screen 07/31/18 at [facility] ED Bipolar 1 disorder 07/12/2017 8 [...] money to get more. Sometimes true 11/2022 [place] Depression Scale Answer Date Recorded [place] Depression Scale Total 11 05/17/2023 The thought [...] Description 10/11/2023 7:40 AM EST Laboratory Laboratory, [facility] [place] [address] [facility] [address] [facility] [place] [address] 10/18/2023 1:15 PM EST Appointment [facility] [address] [address] 10/20/2023 9:30 AM EST Office Visit Gynecology/Obstetrics [facility] [address] [facility] [place] [address] Sharron Robertson CRNP [address] [facility] [place] [address] 10/26/2023 10:15 AM EST Office Visit Cardiology [facility] [place] [address] [place] [address] Summer Cartagena CRNP [address] [place] [facility] [place] [address] 11/02/2023 11:30 AM EST Office Visit Gynecology/Obstetrics [facility] [address] [facility] [place] [address] Shantelle Richmond CRNP [address] [place] [address] 11/06/2023 5:10 PM EST [address] [address] [facility] [address] [facility], [place] [address] 11/13/2023 9:00 AM EST Office Visit Gynecology/Obstetrics [facility] [address] [place] [address] Marcellus Lira MD [address] [place] [address] 11/15/2023 9:00 AM EST Office Visit Gynecology/Obstetrics [facility] [address] [place] [address] Marcellus Lira MD [address] [place] [address] 11/28/2023 9:00 AM EST Office Visit Gynecology/Obstetrics [facility] [address] [place] [address] Marcellus Lira MD [address] [place] [address] 12/06/2023 2:00 PM EST Office Visit Gynecology/Obstetrics [facility] [address] [place] [address] Shantelle Richmond CRNP [address] [place] [address] 12/11/2023 9:00 AM EDT Office Visit Gynecology/Obstetrics [facility] [address] [place] [address] Marcellus Lira MD [address] [place] [address] 12/21/2023 11:30 AM EDT Office Visit Gynecology/Obstetrics [facility] [address] [place] [address] Backer, NICKOLAS Mattson [address] [place] [address] Scheduled Orders Name Type Priority Associated Diagnoses Orde r Schedule GESTATIONAL GLUCOSE TOLERANCE, 3 HOUR Lab Routine Abnormal glucose affecting Expected: 10/05/2023, Expires: 10/05/2024 Health Maintenance Due Date Last Done Comments [...] this encounter Medical Devices Implanted Type Area Um Nurse Device Identifier Shelf Expiration Date Model / Serial / Lot Ring Triad [id number] - [id number] Implanted:Qty: 1 on 08/09/2016 by Suha Harding MD [place] [facility] [place]A: Heart [employer] 08/31/2019 [id number] / [id number] / [id number] documented as of this encounter Visit Diagnoses [...]
--- OUTSIDE RECORDS SUMMARY | 2023-11-08 22:15 | External Medical Summary ---
Author Name Unknown Address Unknown Organization K01:[facility] - [address] [place] [address] Laboratory Report Ordering Provider Test Date Status PAUL MCINTYRE 10/04/2023 11:18:57 Final Observation Date Value Abnormality Reference (Units ) Status MYCODE SPECIMEN-SST 10/04/2023 11:18:57 Freezing of extracted DNA, whole blood and/or serum. Final Performing Location [facility] - [address] [place] [address]
--- OUTSIDE RECORDS SUMMARY | 2023-11-08 22:15 | External Medical Summary | Summary of Care ---
Author Name Unknown Organization [facility] Address [address] [facility] [place] [address] Phone [phone] Care Team Providers Care Nutrition Teacher Name Role Phone Unavailable Primary Care Provider Unavailabl e Reason for Visit * Reason Comments Healthy Beginnings Return Encounter Details Date Type Department Care Team (Late st Contact Info) Description 10/04/2023 10:30 AM EST Office Visit Gynecology/Obstetric s [facility] [address] [place] [address] Lesa Degroot PA-C [address] [place] [address] Supervision of high risk in second trimester*; Nausea and vomiting during ; H/O tricuspid valve repair; History of PR (myocardial infarction); History of pulmonary embolism; Medical marijuana use; History of section complicating ; complicated by subutex maintenance, antepartum ([facility]); History of transfusion; Medication exposure during first trimester of ; History of endocarditis; Anxiety during ; Genital herpes simplex virus (HSV) infection in mother affecting ; History of delivery; Maternal asthma complicating ; Chronic hepatitis C affecting antepartum care of mother ([facility]); PHT (pulmonary hypertension) ([facility]); Heart disease in mother affecting in first trimester; Bipolar disease during in third trimester ([facility]) Allergies Active Allergy Reactions Criticality Noted Date [...] Active Additional Information Patient taking differently: 2 [place] Nasal DAILY PRN, Reported on 11/04/2022 Buprenorphine [...] Active Promethazine HCl 25 MG Rectal Suppository (Phenergan)Indicati ons:Nausea and vomiting during Administer 1 Suppository into the rectum every 6 hours as needed for Nausea. 20 Each 0 10/04/2023 Active Omeprazole 20 MG Oral Capsule Delayed Release (PriLOSEC)Indicatio ns:Nausea and vomiting during Take 1 Capsule by mouth in the morning. Take 30 minutes before eating.. 30 Capsule 1 10/04/2023 Active Promethazine HCl 25 MG Rectal Suppository (Phenergan)Indicati ons:Nausea and vomiting during Administer 1 Suppository into the rectum every 6 hours as needed for Nausea. 20 Each 0 09/28/2023 Discontinu ed(Refill) Hospital, Clinic, or Other Facility Administered Medication [...] 1 11/07/2022 Food insecurity 08/14/2023 Overview: Per [facility] Protocol Supervision of high risk in [facility] 08/08/2023 Last Assessment & Plan: growth and fluid appropriate for gestational age. All visualized anatomy appears normal. BLAKE (dyspnea on exertion) 06/26/2023 Bipolar disease during 06/09/2023 Overview: Reports bipolar. Denies SI/HI. Obtained counseling through [facility]. Last Assessment & Plan: No meds, no concerns reported today. 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 S/p valve repair and denies any further issues. Also reports history of PR. She had a negative heart catheterization at [...] valvular surgery after delivery, and in a kjgy-gn-[id number] basis after evaluating the particular disease process [...] in January 2023. She reports that her web art director said she had PH, but that [...] her most recent echo on file from [facility] (performed in 07/2023), which demonstrated overall [...] reported some decrease in movement to the general matcher. complicated by subutex maintenance, an tepartum 05/18/2023 [...] who previously received 17P. Patient's primary MANAGER BUILDING can coordinate therapy if desired. For patients [...] ripening or induction of labor. History of PR (myocardial infarction) 07/27/2018 Overview: Age 27, s/p [...] in 10 months. Using medical marijuana through [facility] 01/14/2020 Angy Chase RN 01/14/2020 [...] Taken Date entered Entered by Date resolved [facility] breastpump form completed and faxed to [facility] for pt. 07/23/2020 Lisset [...] 10/06/2020 Overview: Delivered at 35w0d Previously on Ringo Stopped at 36w Opioid dependence, uncomplicated 01/16/2019 [...] amphedamines, marijuana on tox screen 07/31/18 at [facility] ED Bipolar 1 disorder 07/12/2017 [...] money to get more. Sometimes true 11/2022 [place] Depression Scale Answer Date Recorded [place] Depression Scale Total 11 05/17/2023 The thought [...] Sign Reading Time Taken Comments Blood Pressure 100/46 10/04/2023 10:31 AM EST Pulse - - Temperature - - Respiratory Rate - - Oxygen Saturation - - Inhaled Oxygen Concentration - - Weight 83.5 kg (184 lb) 10/04/2023 10:31 AM EST Height 165.1 cm (5' 5") 10/04/2023 10:31 AM EST Body Mass Index 30.62 10/04/2023 10:31 AM EST documented in this encounter Functional [...] as of this encounter Progress Notes * Lesa Degroot PA-C - 10/04/2023 11:05 AM EST 28w3d Had messaged in regarding on going nausea and vomiting over last 8-10 days. Received IV fluids and Zofran x 2 over this time. Reports finally feeling better today. Given Rx for Phenergan suppositories which she feels are helping. Notes GERD symptoms nearly daily. Treating with PRN TUMS. Discussed switch to Prilosec given symptoms which she has been on before and tolerated. Rx sent, advised how to take. We discussed potential improvements in nausea if attributing to symptoms as well as any gastritis given n/v. Has messaged in regarding elevated BP while at work. BP not elevated today. She does note headaches, these are not new for her. We discuss BP's out of office. Has appointment with Pulmonology tomorrow and scheduled for ECHO 10/18/2023. Had growth ultrasound with [facility] yesterday. BPP done as patient had thought movements slightly decreased. BPP 8/8. No further concerns today, reviewed [facility] which she was not aware of until today. Discussed call if <10 movement in 2 hours. Continues growth q4wks with MFM. Pt also seen at [facility] on 10/01/2023 due concerns she lost her mucous plug. No records available, pt reports was advised cervix closed and not leaking fluid. She denies any further abnormal vaginal discharge. Counseled on Tdap vaccine, accepts and given. Denies vaginal bleeding. Reports intermittent contractions. No regularity. Asking to schedule C/S. Plans delivery at [facility]. Called and unable to schedule at this time due to far out. Completing third tri labs today including glucola. Call with questions or concerns. RTC in 2 weeks Lesa Degroot PA-C documented in this encounter Nursing Notes * Mercedez Valente RN - 10/04/2023 10:45 AM EST Patient seen by [facility] Fuel Management Handler. The [facility] Coordinator addressed thefollowing concerns baby supplies. Patient given [employer] kids letter and list of local resources to contact regarding other baby supplies. Patient getting TDAP today and doing Glucola today. * Celia Suero LPN - 10/04/2023 10:31 AM EST 28w3d Ctx coming more often. Pretty sure she lost mucus plug the other day. Was at [facility] on 11/01/22 for this. Today is the first day with no n/v in 10 days. Patient here for tdap injection. Patient doing well no complaints. Injection given IM as ordered. Patient tolerated well. Patient to follow up as directed. Patient instructed to call if any complications. Patient verbalized understanding of instructions given and her follow up appt for SURAJ. Injection site: Left Deltoid Medication Source: Dispensed stock medication documented in this encounter Plan of Treatment Upcoming Encounters Date Type Department Care Team (Late st Contact Info) Description 10/05/2023 8:30 AM EST PulmDiagnostic Pulmonary Function Lab, [facility] [address] [place] [address] [place], [place] [address] [place] [address] 10/18/2023 1:15 PM EST Appointment Cardiac Studies [place] [address] [place] [address] 10/20/2023 9:30 AM EST Office Visit Gynecology/Obstetrics [facility] [address] [place] [address] Sharron Robertson CRNP [address] [place] [address] 10/26/2023 10:15 AM EST Office Visit Cardiology [place] [address] [place] [address] Summer Cartagena CRNP [address] [place] [id number] 11/02/2023 11:30 AM EST Office Visit Gynecology/Obstetrics [facility] [address] [place] [address] Shantelle Richmond CRNP [address] [place] [address] 11/06/2023 5:10 PM EST Anticoagulation [facility] [address] [place] [address] [facility] [address] [place] [address] 11/13/2023 9:00 AM EST Office Visit Gynecology/Obstetrics [facility] [address] [facility] [place] [address] Marcellus Lira MD [address] [place] [address] 11/15/2023 9:00 AM EST Office Visit Gynecology/Obstetrics [facility] [address] [place] [address] Marcellus Lira MD [address] [place] [address] 11/28/2023 9:00 AM EST Office Visit Gynecology/Obstetrics [facility] [address] [place] [address] Marcellus Lira MD [address] [place] [address] 12/06/2023 2:00 PM EST Office Visit Gynecology/Obstetrics [facility] [address] [place] [address] Shantelle Richmond CRNP [address] [place] [address] 12/11/2023 9:00 AM EDT Office Visit Gynecology/Obstetrics [facility] [address] [place] [address] Marcellus Lira MD [address] [place] [address] 12/21/2023 11:30 AM EDT Office Visit Gynecology/Obstetrics [facility] [address] [place] [address] Shantelle Richmond CRNP [address] [place] [address] Health Maintenance Due Date Last Done Comments Pneumococcal Vaccine: Pediatrics (0 to 5 Years) and At-Risk Patients (6 to 64 Years) (2 - PCV) 10/01/2020 10/01/2019, 02/11/2014 COVID-19 Vaccine (24 season) 2023 03/12/2022, 02/10/2022 Depression Screening 11/17/2023 [...] this encounter Medical Devices Implanted Type Area Education Adviser Device Identifier Shelf Expiration Date Model / Serial / Lot Ring Triad [id number] - [id number] Implanted:Qty: 1 on 08/09/2016 by Suha Harding MD at OR [facility] N/A: Heart [employer] 08/31/2019 [id number] / [id number] / [id number] documented as of this encounter Visit Diagnoses Diagnosis Supervision of high risk in second trimester- Primary Unspecified high-risk Nausea and vomiting during H/O tricuspid valve repair Personal history of surgery to heart and great vessels, presenting hazards to health History of PR (myocardial infarction) Old myocardial infarction History of [...] Bipolar disease during in third trimester (HCC) documented in this encounter Advance Directives Latest [...]
--- OUTSIDE RECORDS SUMMARY | 2023-11-08 22:15 | External Medical Summary | Summary of Care ---
Author Name Unknown Organization [facility] Address [address] [place] [address] Phone [phone] Care Team Providers Care Program Research Specialist Name Role Phone Unavailable Primary Care Provider Unavailabl e Reason for Visit * Reason Comments Pulmonary Function Test Spirogram with b ronchodilator Oxygen Assessment 6 minute walk Encounter Details Date Type Department Care Team (Latest Contact Info) Description 10/05/2023 8:30 AM EST PulmDiagnostic Pulmonary Function Lab, [facility] [address] [facility] [place] [address] [place], [place] [address] [place] [address] BLAKE (dyspnea on exertion)*; PHT (pulmonary hypertension) (HCC); Mild persistent asthma with exacerbation Allergies Active [...] Active Additional Information Patient taking differently: 2 [place] Nasal DAILY PRN, Reported on 11/04/2022 Buprenorphine [...] 1 11/07/2022 Food insecurity 08/14/2023 Overview: Per [facility] Protocol Supervision of high risk in [facility] 08/08/2023 Last Assessment & Plan: growth and fluid appropriate for gestational age. All visualized anatomy appears normal. BLAKE (dyspnea on exertion) 06/26/2023 Bipolar disease during 06/09/2023 Overview: Reports bipolar. Denies SI/HI. Obtained counseling through [facility]. Last Assessment & Plan: No meds, no [...] valvular surgery after delivery, and in a [id number]-uh-[id number] basis after evaluating the particular disease process [...] in January 2023. She reports that her kieselguhr regenerator operator said she had PH, but that [...] her most recent echo on file from [facility] (performed in 07/2023), which demonstrated overall stable [...] reported some decrease in movement to the tool trouble shooter. complicated by subutex maintenance, an tepartum 05/18/2023 [...] child born at 35 weeks. Was on [employer] in previous pregnancies. Last Assessment & Plan: [...] patients who previously received 17P. Patient's primary AGRICULTURAL EXTENSION EDUCATOR can coordinate therapy if desired. For patients [...] breech then ERLTCS. Last in 2019 at [facility]. Desires repeat with tubal at [facility]. Last Assessment & Plan: CONSIDERATIONS: Reviewed that [...] delivery at 36-37 weeks without amniocentesis per [employer]. Every effort should be made by patient s primary OB provider to obtain prior operative reports. As per [employer]'s 2010 practice [...] in 10 months. Using medical marijuana through [employer] [facility] 01/14/2020 Angy Chase RN 01/14/2020 [...] entered Entered by Date resolved [facility] breastpump form completed and faxed to [facility] for pt. 07/23/2020 Lisset Gonzalez [...] 10/06/2020 Overview: Delivered at 35w0d Previously on [employer] Stopped at 36w Opioid dependence, uncomplicated 01/16/2019 [...] 2 007 - 2021 Smokeless Tobacco: Never Tobacco Cessation:Counseling Given: Not Answered Alcohol Use Standard Drinks/Week Comments Not Currently [...] money to get more. Sometimes true 11/2022 [place] Depression Scale Answer Date Recorded [place] Depression Scale Total 11 05/17/2023 The thought [...] Sign Reading Time Taken Comments Blood Pressure 100/54 10/05/2023 8:19 AM EST Pulse 94 10/05/2023 8:19 AM EST Temperature - - Respiratory Rate 18 10/05/2023 8:19 AM EST Oxygen Saturation 97% 10/05/2023 8:19 AM EST Inhaled Oxygen Concentration - - Weight 82.5 kg (181 lb 14.1 oz) 10/05/2023 8:19 AM EST Height 166.7 cm (5' 5.63") 10/05/2023 8:19 AM ES T Body Mass Index 29.69 10/05/2023 8:19 AM EST documented in this encounter Functional [...] No 10/27/2016 documented as of this encounter Nursing Notes * Hitesh Zazueta RRT - 10/05/2023 8:37 AM EST Nancy Hernandez was identified by name, Date of : (1990), and . Vitals were obtained for testing. Body mass index is 29.69 kg/m. Pt has a 1 ppd for 15 years smoking istory andquit about a year ago. 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 Spirometry performed before and after a slow volume nebulizer treatment of 0.5ml of albuterol in 3 ml of NSS. Exercise oximetry performed on room air x 6 minutes. Pt ambulated 1440 feet/ 439 meters. No rest periods were required. Lowest SPO2 on room air was 97%. Administrations This Visit Albuterol Sulfate (Proventil) (2.5 MG/3ML) 0.083% inhalation solution 2.5 mg Admin Date 10/05/2023 Action Given Dose 2.5 mg Route Nebulizer Documented By Hitesh Zazueta RRT documented in this encounter Plan of Treatment Upcoming Encounters Date Type Department Care Team (Late st Contact Info) Description 10/18/2023 1:15 PM EST Appointment Cardiac Studies [facility], [address] [address] 10/20/2023 9:30 AM EST Office Visit Gynecology/Obstetrics [facility] [address] [place] [address] Sharron Robertson CRNP [address] [place] [address] 10/26/2023 10:15 AM EST Office Visit Cardiology [facility] [place] [address] [place] [address] Summer Cartagena CRNP [address] [place] [address] 11/02/2023 11:30 AM EST Office Visit Gynecology/Obstetrics [facility] [address] [place] [address] Shantelle Richmond CRNP [address] [place] [address] 11/06/2023 5:10 PM EST Anticoagulation Pharmacy, [place] [address] [place] [address] [place] [address] [place] [address] 11/13/2023 9:00 AM EST Office Visit Gynecology/Obstetrics [facility] [address] [place] [address] Marcellus Lira MD [address] [place] [address] 11/15/2023 9:00 AM EST Office Visit Gynecology/Obstetrics [facility] [address] [place] [address] Marcellus Lira MD [address] [place] [address] 11/28/2023 9:00 AM EST Office Visit Gynecology/Obstetrics [facility] [address] [place] [address] Marcellus Lira MD [address] [place] [address] 12/06/2023 2:00 PM EST Office Visit Gynecology/Obstetrics [facility] [address] [place] [address] Shantelle Richmond CRNP [address] [place] [address] 12/11/2023 9:00 AM EDT Office Visit Gynecology/Obstetrics [facility] [address] [place] [address] Marcellus Lira MD [address] [place] [address] 12/21/2023 11:30 AM EDT Office Visit Gynecology/Obstetrics [facility] [address] [place] [address] Shantelle Richmond CRNP [address] [place] [address] Pending Results Name Type Priority Associated Diagnoses Date /Time SPIROMETRY B/A BRONCHODILATOR Procedures Routine BLAKE (dyspnea on exertion) PHT (pulmonary hypertension) (HCC) Mild persistent asthma with exacerbation 10/05/2023 8:20 AM EST Health Maintenance Due Date Last [...] this encounter Medical Devices Implanted Type Area Brake Lining Finisher Asbestos Device Identifier Shelf Expiration Date Model / Serial / Lot Ring Triad [id number] - [id number] Implanted:Qty: 1 on 08/09/2016 by Suha Harding MD at OR [facility] N/A: Heart [employer] 08/31/2019 [id number] / [id number] / [id number] documented as of this encounter Procedures Procedure Name Priority Date/Time Associated Diagnosis Comments SPIROMETRY B/A BRONCHODILATOR Routine 10/05/2023 8:20 AM EST BLAKE (dyspnea on exertion) PHT (pulmonary hypertension) ([facility]) Mild persistent asthma with exacerbation documented in this encounter Visit Diagnoses Diagnosis BLAKE (dyspnea on exertion)- Primary Other dyspnea and respiratory abnormality PHT (pulmonary hypertension) (HCC) Other chronic pulmonary heart diseases Mild persistent asthma with exacerbation Unspecified asthma, with exacerbation documented in this encounter Administered Medications Active Administered Medications - up to 3 most recent administrations Medication Order MAR Action Action Date Dose Rate Site Albuterol Sulfate (Proventil) (2.5 MG/3ML) 0.083% inhalation solution 2.5 mg 2.5 mg, Nebulizer, Q4H PRN Other, for pft, Starting on Mon09/01/23 at 1205, Until Discontinued Given 10/05/2023 8:18 AM EST 2.5 mg documented in this encounter Advance Directives Latest [...]
--- OUTSIDE RECORDS SUMMARY | 2023-11-08 22:15 | External Medical Summary | Summary of Care ---
Author Name Unknown Organization [facility] Address [address] [place] [address] Phone [phone] Care Team Providers Care Clinical Product Manager Name Role Phone Unavailable Primary Care Provider Unavailabl e Reason for Visit * Reason Onset Date Comments Medication Refill 10/02/2023 Encounter Details Date Type Department Care Team (Late st Contact Info) Description 10/02/2023 Refill Gynecology/Obstetrics [facility] [address] [place] [address] Marcellus Lira MD [address] [place] [address] Allergies Active Allergy Reactions Criticality Noted Date [...] Active Additional Information Patient taking differently: 2 [place] Nasal DAILY PRN, Reported on 11/04/2022 Buprenorphine [...] on tongue. 20 Tablet 0 10/04/2023 Active Ondansetron 4 MG Oral Tablet Disintegrating [...] mgIndications:BLAKE (dyspnea on exertion),PHT (pulmonary hypertension) ([facility]),Mild persistent asthma with exacerbation 2.5 mg NEBULIZER Q4H PRN 09/01/2023 Active documented as of this encounter (statuses as of 10/04/2023) Active Problems Problem Noted Date Diagnosed Date Blood pressure elevated without history of HTN 1 11/07/2022 Food insecurity 08/14/2023 Overview: Per [employer] [facility] [facility] Protocol [facility] 08/08/2023 Last Assessment & Plan: growth and fluid appropriate for gestational age. All visualized anatomy appears normal. BLAKE (dyspnea on exertion) 06/26/2023 Bipolar disease during 06/09/2023 Overview: Reports bipolar. Denies SI/HI. Obtained counseling through [facility]. Last Assessment & Plan: No meds, no concerns reported today. 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 S/p valve repair and denies any further issues. Also reports history of [place]. She had a negative heart catheterization at [...] valvular surgery after delivery, and in a [id number]-qr-wfwi basis after evaluating the particular disease process [...] in January 2023. She reports that her sprinkler repair technician said she had PH, but that [...] her most recent echo on file from [facility] (performed in 07/2023), which demonstrated overall [...] reported some decrease in movement to the seed tester. complicated by subutex maintenance, an tepartum 05/18/2023 [...] patients who previously received 17P. Patient's primary BIOLOGICS SPECIALIST can coordinate therapy if desired. For [...] breech then ERLTCS. Last in 2019 at [facility]. Desires repeat with tubal at [facility]. Last Assessment & [...] delivery at 36-37 weeks without amniocentesis per [employer]. Every effort should be made by patient s primary OB provider to obtain prior operative reports. As per [employer]'s 2010 practice [...] ripening or induction of labor. History of [place] (myocardial infarction) 07/27/2018 Overview: Age 27, s/p [...] 10 months. Using medical marijuana through [facility] 01/14/2020 Angy Chase RN 01/14/2020 [...] amphedamines, marijuana on tox screen 07/31/18 at [facility] ED Bipolar 1 disorder 07/12/2017 [...] money to get more. Sometimes true 11/2022 [place] Depression Scale Answer Date Recorded [place] Depression Scale Total 11 05/17/2023 The thought [...] Telephone Encounter - Leatha Degroot PA-C - 10/04/2023 2:01 PM ESTSigned Prescriptions: Disp Refills Ondansetron 4 MG Oral Tablet Disintegratin*20 Tab*0 Sig: Place 1Tablet on tongue every 8 hours as needed for Nausea. dissolve on tongue.Authorizing Provider: LEATHA DEGROOT * Telephone Encounter - Soniya Cotto LPN - 10/03/2023 11:42 AM ESTPending Prescriptions: Disp Refills Ondansetron 4 MG Oral Tablet Disintegratin*30 Tab*1 Sig: Place 1 Tablet on tongue every 8 hours as needed for Nausea. dissolve on tongue. documented in this encounter Plan of Treatment Upcoming Encounters Date Type Department Care Team (Late st Contact Info) Description 10/05/2023 8:30 AM EST PulmDiagnostic Pulmonary Function Lab, [facility] [address] [place] [id number] [place], [address] [place] [address] 10/18/2023 1:15 PM EST Appointment [facility], [address] [address] 10/20/2023 9:30 AM EST Office Visit Gynecology/Obstetrics [facility] [address] [place] [id number] Sharron Robertson CRNP [address] [place] [address] 10/26/2023 10:15 AM EST Office Visit Cardiology [facility], [address] [address] Summer Cartagena CRNP [address] [facility] [place] [address] 11/02/2023 11:30 AM EST Office Visit Gynecology/Obstetrics [facility] [address] [place] [address] Shantelle Richmond CRNP [address] [place] [address] 11/06/2023 5:10 PM EST Anticoagulation [facility] [address] [place] [address] [facility] [address] [place] [address] 11/13/2023 9:00 AM EST Office Visit Gynecology/Obstetrics [facility] [address] [place] [address] Marcellus Lira MD [address] [place] [address] 11/15/2023 9:00 AM EST Office Visit Gynecology/Obstetrics [facility] [address] [place] [address] Marcellus Lira MD [address] [place] [address] 11/28/2023 9:00 AM EST Office Visit Gynecology/Obstetrics [facility] [address] [place] [address] Marcellus Lira MD [address] [place] [address] 12/06/2023 2:00 PM EST Office Visit Gynecology/Obstetrics [facility] [address] [place] [address] Shantelle Richmond CRNP [address] [place] [address] 12/11/2023 9:00 AM EDT Office Visit Gynecology/Obstetrics [facility] [address] [place] [address] Marcellus Lira MD [address] [place] [address] 12/21/2023 11:30 AM EDT Office Visit Gynecology/Obstetrics [facility] [address] [place] [address] Shantelle Richmond CRNP [address] [place] [address] Health Maintenance Due Date Last Done Comments [...] this encounter Medical Devices Implanted Type Area Cobol Developer Device Identifier Shelf Expiration Date Model / Serial / Lot Ring Triad [id number] - [id number] Implanted:Qty: 1 on 08/09/2016 by Suha Harding MD at OR [facility] N/A: Heart [employer] 08/31/2019 [id number] / [id number] / [id number] documented as of this encounter Advance Directives [...]
--- OUTSIDE RECORDS SUMMARY | 2023-11-08 22:16 | External Medical Summary | Summary of Care ---
Author Name Unknown Organization [facility] Address [address] [place] [address] Phone [phone] Care Team Providers Care Java Analyst Name Role Phone Unavailable Primary Care Provider Unavailabl e Encounter Details Date Type Department Care Team (Late st Contact Info) Description 10/03/2023 Education Visit Paper Tube Machine Operator Obstetrics Maternal Medicine, [place] [address] [place] [address] Ara Holloway RN complicated by subutex maintenance, antepartum (HCC)* Allergies Active Allergy Reactions Criticality Noted Date [...] Active Additional Information Patient taking differently: 2 [place] Nasal DAILY PRN, Reported on 11/04/2022 Buprenorphine [...] 1 11/07/2022 Food insecurity 08/14/2023 Overview: Per [facility] Protocol Supervision of high risk in [...] any further issues. Also reports history of [place]. She had a negative heart catheterization at [...] valvular surgery after delivery, and in a [id number]-jl-msmw basis after evaluating the particular disease process [...] in January 2023. She reports that her strap making machine operator said she had PH, but that they were not concerned about it at this time. Last Assessment & Plan: The patient states her shortness of breath has worsened since he saw pulmonology on September 01. Also, her blood pressure was elevated today at 146/79. I reviewed her prior blood pressures and this is elevated compared with her baseline. I told her that I was concerned that her pulmonary hypertension was worsening and that she has also new onset hypertension. Due to this, we will send her to Labor and delivery for evaluation. I have discussed the plan of care with the labor and delivery attending. complicated by subutex maintenance, an tepartum 05/18/2023 [...] patients who previously received 17P. Patient's primary ARCHIVIST can coordinate therapy if desired. For patients [...] delivery at 36-37 weeks without amniocentesis per [employer]. Every effort should be made by patient s primary OB provider to obtain prior operative reports. As per [employer]'s 2010 practice [...] ripening or induction of labor. History of LA (myocardial infarction) 07/27/2018 Overview: Age 27, s/p [...] in 10 months. Using medical marijuana through [facility] 01/14/2020 Angy Chase RN 01/14/2020 nutrition Due [...] Taken Date entered Entered by Date resolved [facility] breastpump form completed and faxed to [facility] for pt. 07/23/2020 Lisest Gonzalez RN 07/23/2020 Problem Action Taken Date [...] 10/06/2020 Overview: Delivered at 35w0d Previously on [place] Stopped at 36w Opioid dependence, uncomplicated 01/16/2019 [...] amphedamines, marijuana on tox screen 07/31/18 at [facility] ED Bipolar 1 disorder 07/12/2017 8 Attention [...] HPV Vaccine, 4-Valent 07/14/2011,03/15/2011,12/01 HPV Vaccine, 9-Valent 07/14/2011,03/15/2011,032 10/2010 Haemophilius B (HIB), unspecified 1991,1991,1991,06/04 Hepatitis [...] Smoking Tobacco: Former Cigarettes 1 15 2 - 2021 Smokeless Tobacco: Never Alcohol Use [...] money to get more. Sometimes true 11/2022 [place] Depression Scale Answer Date Recorded [place] Depression Scale Total 11 05/17/2023 The thought [...] as of this encounter Nursing Notes * Ara Holloway RN - 10/03/2023 4:15 PM EST Met with patient, Nancy during her MFM appointment. Discussed FAB[facility] care at [facility] and the Eat, Sleep Console program at [facility]. Nancy has pulmonary hypertension, therefore she is not a candidate for delivery at [facility]. Provided written information on FABIAN care and local resources. Answered her questions to her satisfaction. Nancy has the contact information for the CPP as needed. Ara Holloway RN, BS Nurse Nav[facility] [address] [address] ext: [phone] documented in this encounter Plan of Treatment Upcoming Encounters Date Type Department Care Team (Late st Contact Info) Description 10/04/2023 10:10 AM EST Laboratory Laboratory, [place] [facility] [address] [place] [phone] Deepti Ennis [address] [place] [address] 10/04/2023 10:30 AM EST Office Visit Gynecology/Obstetrics [facility] [place] [address] [place] [address] Lesa Degroot PA-C [address] [place] [address] 10/04/2023 1:00 PM EST PulmDiagnostic Pulmonary Function Lab, [facility] [address] [facility] [place], [place] [address] West, Pft [address] [facility] [place], [place] [address] 10/18/2023 1:15 PM EST Appointment Cardiac Studies [facility] [address] [place] [address] 10/20/2023 9:30 AM EST Office Visit Gynecology/Obstetrics [facility] [address] [place] [address] Sharron Robertson CRNP [address] [place] [address] 10/26/2023 10:15 AM EST Office Visit Cardiology [facility] [place] [address] [place] [address] Summer Cartagena CRNP [address] [place] [address] 11/02/2023 11:30 AM EST Office Visit Gynecology/Obstetrics [facility] [address] [place] [address] Shantelle Richmond CRNP [address] [facility], [place] [address] 11/06/2023 5:10 PM EST Anticoagulation Pharmacy, [place] [address] [facility] [place] [address] [facility] [address] [facility] [place] [address] 11/13/2023 9:00 AM EST Office Visit Gynecology/Obstetrics [facility] [address] [facility] [address] Marcellus Lira MD [address] [place] [address] 11/15/2023 9:00 AM EST Office Visit Gynecology/Obstetrics [facility] [address] [place] [address] Marcellus Lira MD [address] [place] [address] 11/28/2023 9:00 AM EST Office Visit Gynecology/Obstetrics [facility] [address] [place] [address] Marcellus Lira MD [address] [place] [address] 12/06/2023 2:00 PM EST Office Visit Gynecology/Obstetrics [facility] [address] [place] [address] Shantelle Richmond CRNP [address] [place] [address] 12/11/2023 9:00 AM EDT Office Visit Gynecology/Obstetrics [facility] [address] [place] [address] Marcellus Lira MD [address] [place] [address] 12/21/2023 11:30 AM EDT Office Visit Gynecology/Obstetrics [facility] [address] [place] [address] Shantelle Richmond CRNP [address] [place] [address] Health Maintenance Due Date Last Done Comments [...] this encounter Medical Devices Implanted Type Area Nurse Wound Care Device Identifier Shelf Expiration Date Model / Serial / Lot Ring Triad [id number] - [id number] Implanted:Qty: 1 on 08/09/2016 by Suha Harding MD at OR [facility] N/A: Heart [employer] 08/31/2019 [id number] / [id number] / [id number] documented as of this encounter Visit Diagnoses Diagnosis complicated by subutex maintenance, antepartum (HCC)- Primary documented in this encounter Advance Directives [...]
--- OUTSIDE RECORDS SUMMARY | 2023-11-08 22:16 | External Medical Summary | Summary of Care ---
Author Name Unknown Organization [facility] Address [address] [place] [address] Phone [phone] Care Team Providers Care Plant Operations Coordinator Name Role Phone Unavailable Primary Care Provider Unavailabl e Reason for Visit * Reason Onset Date Comments Hospital Follow-Up 10/01/2023 Encounter Details Date Type Department Care Team (Late st Contact Info) Description 10/01/2023 Telephone [facility] Gynecology and Obstetrics [address] [place], [place] [phone] Radha Burgos MD [address] [place], [place] [phone] Hospital Follow-Up Allergies Active Allergy Reactions Criticality Noted Date Comments Sulfamethoxazole-Trimetho prim Nausea/vomiting Medium 01/19/2018 Nausea when taken with keflex Doxycycline Nausea/vomiting Medium 09/10/2018 Cephalexin Nausea/vomiting Medium 01/19/2018 Nausea when taken with bactrim documented as of this encounter (statuses as of 10/01/2023) Medications Medication Sig Dispensed Refills Start Date [...] Active Additional Information Patient taking differently: 2 [place] Nasal DAILY PRN, Reported on 11/04/2022 Buprenorphine [...] as of this encounter (statuses as of 10/01/2023) Active Problems Problem Noted Date Diagnosed Date Blood pressure elevated without history of HTN 1 11/07/2022 Food insecurity 08/14/2023 Overview: Per [facility] Protocol Supervision of high risk [facility] 08/08/2023 Last Assessment & Plan: growth and fluid appropriate for gestational age. All visualized anatomy appears normal. BLAKE (dyspnea on exertion) 06/26/2023 Bipolar disease during 06/09/2023 Overview: Reports bipolar. Denies SI/HI. Obtained counseling through [facility]. Last Assessment & Plan: No meds, no concerns reported today. 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 S/p valve repair and denies any further issues. Also reports history of [place]. She had a negative heart catheterization at [...] valvular surgery after delivery, and in a ldjc-hd-ffux basis after evaluating the particular disease process [...] in January 2023. She reports that her holistic specialist said she had PH, but that [...] patients who previously received 17P. Patient's primary DREDGE WORKER can coordinate therapy if desired. For [...] delivery at 36-37 weeks without amniocentesis per [employer]. Every effort should be made by patient s primary OB provider to obtain prior operative reports. As per [employer]'s 2010 practice [...] ripening or induction of labor. History of [place] (myocardial infarction) 07/27/2018 Overview: Age 27, s/p [...] as of this encounter (statuses as of 10/01/2023) Resolved Problems Problem Noted Date Diagnosed Date [...] in 10 months. Using medical marijuana through [employer] 01/14/2020 Angy Chase RN 01/14/2020 nutrition Due [...] entered Entered by Date resolved [facility] breastpump form completed and faxed to [facility] for pt. 07/23/2020 Lisset Gonzalez RN [...] 10/06/2020 Overview: Delivered at 35w0d Previously on [place] Stopped at 36w Opioid dependence, uncomplicated 01/16/2019 [...] as of this encounter (statuses as of 10/01/2023) Immunizations Name Administration Dates Next Due COVID-19 [...] as of this encounter Progress Notes * Radha Burgos MD - 10/01/2023 2:22 AM ESTPatient called the answering service this evening stating she thought she lost her mucus plug. Notes good movement is currently at work. Denies any contractions or leaking of fluid. Denies any vaginal bleeding. History of delivery x1 and history of previous . Reassurance given but labor precautions reviewed with patient and to come immediately to late Laborand delivery if she starts having any contractions or leaking of fluid Is aware due to prematurity that she would need to be transferred to a tertiary hospital Patient voiced her understanding agreement with the plan. Will talk to her boss about leaving work early this evening if possible All questions answered over the phone V juli MURDOCK PhD documented in this encounter Plan of Treatment Upcoming Encounters Date Type Department Care Team (Late st Contact Info) Description 10/03/2023 2:30 PM EST Office Visit Client Sales And Service Officer Obstetrics Maternal Medicine, [place] [address] [place] [address] Cristino Garcia, [address] [place] [address] 10/03/2023 2:30 PM EST Imaging [facility]iology [facility] [place] [address] [place] [address] 10/04/2023 10:10 AM EST Laboratory Laboratory, [facility] [address] [facility] [place] [address] [place] [facility] [address] [place] [address] 10/04/2023 10:30 AM EST Office Visit Gynecology/Obstetrics [facility] [address] [place] [address] Lesa Degroot PA-C [address] [place] [address] 10/04/2023 1:00 PM EST PulmDiagnostic Pulmonary Function Lab, [facility] [address] [place] [address] West, Pft [facility] [place] [address] 10/18/2023 1:15 PM EST Appointment Cardiac Studies [facility], [address] [address] 10/20/2023 9:30 AM EST Office Visit Gynecology/Obstetrics [facility] [address] [place] [address] Sharron Robertson CRNP [address] [place] [address] 10/26/2023 10:15 AM EST Office Visit [facility]iology [facility], [place] [address] [place] [address] Summer Cartagena CRNP [address] [place] [facility] [place] [address] 11/02/2023 11:30 AM EST Office Visit Gynecology/Obstetrics [facility] [address] [facility] [place] [address] Shantelle Richmond CRNP [address] [place] [address] 11/06/2023 5:10 PM EST Anticoagulation [facility] [address] [facility], [place] [address] [facility] [address] [place] [facility] [place] [address] 11/13/2023 9:00 AM EST Office Visit Gynecology/Obstetrics [facility] [address] [place] [address] Marcellus Lira MD [address] [place] [address] 11/15/2023 9:00 AM EST Office Visit Gynecology/Obstetrics [facility] [address] [place] [address] Marcellus Lira MD [address] [place] [address] 11/28/2023 9:00 AM EST Office Visit Gynecology/Obstetrics [facility] [address] [place] [address] Marcellus Lira MD [address] [place] [address] 12/06/2023 2:00 PM EST Office Visit Gynecology/Obstetrics [facility] [address] [place] [address] Shantelle Richmond CRNP [address] [place] [address] 12/11/2023 9:00 AM EDT Office Visit Gynecology/Obstetrics [facility] [address] [place] [address] Marcellus Lira MD [address] [place] [address] 12/21/2023 11:30 AM EDT Office Visit Gynecology/Obstetrics [facility] [place] [address] [place] [address] Backer, ShantelleNICKOLAS Ann [address] [place] [address] Health Maintenance Due Date Last Done Comments [...] this encounter Medical Devices Implanted Type Area Oracle Database Developer Device Identifier Shelf Expiration Date Model / Serial / Lot Ring Triad [id number] - [id number] Implanted:Qty: 1 on 08/09/2016 by Suha Harding MD at OR [facility] N/A: Heart [employer] 08/31/2019 [id number] / [id number] / [id number] documented as of this encounter Advance Directives [...]
[2023-11-08] MEDS: BUPRENORPHINE/NALOXONE 2/0.5MG 1 TAB SL SCH (22:38)
[2023-11-08] MEDS: CALCIUM CARBONATE 500 MG CHEWABLE TAB PO STA (22:57)
[2023-11-09] MEDS ORDERED: GLUCAGON FOR INJ 1 MG VIAL IM PRN (00:30)
[2023-11-09] MEDS ORDERED: GLUCOSE 40% GEL 15 GM TUBE PO PRN (00:30)
[2023-11-09] MEDS ORDERED: DEXTROSE 50% 50 ML SYRINGE IV PRN (00:30)
[2023-11-09] MEDS ORDERED: CARBOHYDRATES FOR HYPOGLYCEMIA PO PRN (00:30)
[2023-11-09] MEDS ORDERED: GLUCOSE 10 TAB/TUBE PO PRN (00:30)
[2023-11-09] MEDS: NIFEdipine 10 MG CAP PO SCH (00:49)
[2023-11-09] MEDS: NIFEdipine EXTENDED REL 30 MG TABCR PO SCH (03:54)
[2023-11-09] MEDS: ACETAMINOPHEN 1,000 MG/100 ML VIAL IV PRN (04:12)
--- NOTE | 2023-11-09 04:52 | Obstetrical Progress Note ---
Date of Service November 09, 2023 Subjective Late entry from 00:30 She is on 2nd flood PCU and on monitors, feels well no complaints CP is much better Ctxs spaced out, feels mild +FM No LOF/VB She desires to rest for now VSS Afebrile NST reactive Continue with PO Procardia and to monitor closely Results & Data Vital Signs (Past 12 Hours) Vital Signs Temp Pulse Pulse Resp BP BP Pulse Ox 11/09/23 03:29 36.7 C 97 H 20 121/73 93 11/08/23 22:40 36.6 C 99 H 20 132/67 98 11/08/23 22:38 91 H 11/08/23 22:05 97 11/08/23 22:05 80 11/08/23 22:00 97 11/08/23 22:00 79 11/08/23 21:55 99 11/08/23 21:55 80 11/08/23 21:50 99 11/08/23 21:50 76 11/08/23 21:45 100 11/08/23 21:45 79 11/08/23 21:40 98 11/08/23 21:40 75 11/08/23 21:35 98 11/08/23 21:35 78 11/08/23 21:30 98 11/08/23 21:30 73 11/08/23 21:25 99 11/08/23 21:25 83 11/08/23 21:20 99 11/08/23 21:20 78 11/08/23 21:15 99 11/08/23 21:15 80 11/08/23 21:10 98 11/08/23 21:10 89 11/08/23 21:05 99 11/08/23 21:05 88 11/08/23 21:00 98 11/08/23 21:00 87 11/08/23 20:26 98 11/08/23 20:26 89 11/08/23 20:21 97 11/08/23 20:21 86 11/08/23 20:16 98 11/08/23 20:16 92 H 11/08/23 20:11 99 11/08/23 20:11 89 11/08/23 20:06 99 11/08/23 20:06 99 H 11/08/23 20:01 98 11/08/23 20:01 92 H 11/08/23 19:56 98 11/08/23 19:56 83 11/08/23 19:51 97 11/08/23 19:51 79 11/08/23 19:46 98 11/08/23 19:46 83 11/08/23 19:41 97 11/08/23 19:41 80 11/08/23 19:36 98 11/08/23 19:36 93 H 11/08/23 19:31 98 11/08/23 19:31 82 11/08/23 19:26 98 11/08/23 19:26 102 H 11/08/23 19:14 97 11/08/23 19:14 83 11/08/23 19:09 36.8 C 20 11/08/23 19:09 99 11/08/23 19:09 85 11/08/23 19:09 85 11/08/23 19:09 116/58 L 11/08/23 19:04 98 11/08/23 19:04 94 H 11/08/23 19:00 18 11/08/23 19:00 18 11/08/23 18:59 98 11/08/23 18:59 95 H 11/08/23 18:54 98 11/08/23 18:54 86 11/08/23 18:49 98 11/08/23 18:49 89 11/08/23 18:44 99 11/08/23 18:44 88 11/08/23 18:39 99 11/08/23 18:39 88 11/08/23 18:34 99 11/08/23 18:34 93 H 11/08/23 18:29 100 11/08/23 18:29 82 11/08/23 18:23 99 11/08/23 18:23 83 11/08/23 18:18 99 11/08/23 18:18 80 11/08/23 18:13 100 11/08/23 18:13 82 11/08/23 18:08 96 11/08/23 18:08 74 11/08/23 18:03 97 11/08/23 18:03 77 11/08/23 17:58 99 11/08/23 17:58 79 11/08/23 17:53 99 11/08/23 17:53 81 11/08/23 17:48 100 11/08/23 17:48 82 11/08/23 17:43 100 11/08/23 17:43 77 11/08/23 17:38 100 11/08/23 17:38 82 11/08/23 17:33 99 11/08/23 17:33 79 11/08/23 17:28 99 11/08/23 17:28 83 11/08/23 17:23 99 11/08/23 17:23 79 11/08/23 17:18 98 11/08/23 17:18 81 11/08/23 17:13 99 11/08/23 17:13 81 11/08/23 17:09 81 11/08/23 17:09 107/55 L 11/08/23 17:08 99 11/08/23 17:08 88 11/08/23 17:03 100 11/08/23 17:03 82 11/08/23 17:00 16 11/08/23 17:00 16 11/08/23 16:58 99 11/08/23 16:58 86 11/08/23 16:53 97 11/08/23 16:53 88 O2 Del Method 11/09/23 03:29 Room Air 11/08/23 22:40 Room Air 11/08/23 22:38 11/08/23 22:05 11/08/23 22:05 11/08/23 22:00 11/08/23 22:00 11/08/23 21:55 11/08/23 21:55 11/08/23 21:50 11/08/23 21:50 11/08/23 21:45 11/08/23 21:45 11/08/23 21:40 11/08/23 21:40 11/08/23 21:35 11/08/23 21:35 11/08/23 21:30 11/08/23 21:30 11/08/23 21:25 11/08/23 21:25 11/08/23 21:20 11/08/23 21:20 11/08/23 21:15 11/08/23 21:15 11/08/23 21:10 11/08/23 21:10 11/08/23 21:05 11/08/23 21:05 11/08/23 21:00 11/08/23 21:00 11/08/23 20:26 11/08/23 20:26 11/08/23 20:21 11/08/23 20:21 11/08/23 20:16 11/08/23 20:16 11/08/23 20:11 11/08/23 20:11 11/08/23 20:06 11/08/23 20:06 11/08/23 20:01 11/08/23 20:01 11/08/23 19:56 11/08/23 19:56 11/08/23 19:51 11/08/23 19:51 11/08/23 19:46 11/08/23 19:46 11/08/23 19:41 11/08/23 19:41 11/08/23 19:36 11/08/23 19:36 11/08/23 19:31 11/08/23 19:31 11/08/23 19:26 11/08/23 19:26 11/08/23 19:14 11/08/23 19:14 11/08/23 19:09 11/08/23 19:09 11/08/23 19:09 11/08/23 19:09 11/08/23 19:09 11/08/23 19:04 11/08/23 19:04 11/08/23 19:00 11/08/23 19:00 11/08/23 18:59 11/08/23 18:59 11/08/23 18:54 11/08/23 18:54 11/08/23 18:49 11/08/23 18:49 11/08/23 18:44 11/08/23 18:44 11/08/23 18:39 11/08/23 18:39 11/08/23 18:34 11/08/23 18:34 11/08/23 18:29 11/08/23 18:29 11/08/23 18:23 11/08/23 18:23 11/08/23 18:18 11/08/23 18:18 11/08/23 18:13 11/08/23 18:13 11/08/23 18:08 11/08/23 18:08 11/08/23 18:03 11/08/23 18:03 11/08/23 17:58 11/08/23 17:58 11/08/23 17:53 11/08/23 17:53 11/08/23 17:48 11/08/23 17:48 11/08/23 17:43 11/08/23 17:43 11/08/23 17:38 11/08/23 17:38 11/08/23 17:33 11/08/23 17:33 11/08/23 17:28 11/08/23 17:28 11/08/23 17:23 11/08/23 17:23 11/08/23 17:18 11/08/23 17:18 11/08/23 17:13 11/08/23 17:13 11/08/23 17:09 11/08/23 17:09 11/08/23 17:08 11/08/23 17:08 11/08/23 17:03 11/08/23 17:03 11/08/23 17:00 11/08/23 17:00 11/08/23 16:58 11/08/23 16:58 11/08/23 16:53 11/08/23 16:53
--- NOTE | 2023-11-09 04:57 | Obstetrical Progress Note ---
Date of Service November 09, 2023 Subjective I was called that her contractions came back, every 3-5 min, pain is 9-10/10 She had received PO Procardia at 03:45 VSS Afebrile No LOF/VB No CP/SOB NST reactive [place] ctxs q3-5 min, Abd soft, NT, I have not felt any ctxs over min and had one which felt mild and lasted for 10-20 seconds VE: closed, unchanged Pain meds as needed and continue to monitor Results & Data Vital Signs (Past 12 Hours) Vital Signs Temp Pulse Pulse Resp BP BP Pulse Ox 11/09/23 03:29 36.7 C 97 H 20 121/73 93 11/08/23 22:40 36.6 C 99 H 20 132/67 98 11/08/23 22:38 91 H 11/08/23 22:05 97 11/08/23 22:05 80 11/08/23 22:00 97 11/08/23 22:00 79 11/08/23 21:55 99 11/08/23 21:55 80 11/08/23 21:50 99 11/08/23 21:50 76 11/08/23 21:45 100 11/08/23 21:45 79 11/08/23 21:40 98 11/08/23 21:40 75 11/08/23 21:35 98 11/08/23 21:35 78 11/08/23 21:30 98 11/08/23 21:30 73 11/08/23 21:25 99 11/08/23 21:25 83 11/08/23 21:20 99 11/08/23 21:20 78 11/08/23 21:15 99 11/08/23 21:15 80 11/08/23 21:10 98 11/08/23 21:10 89 11/08/23 21:05 99 11/08/23 21:05 88 11/08/23 21:00 98 11/08/23 21:00 87 11/08/23 20:26 98 11/08/23 20:26 89 11/08/23 20:21 97 11/08/23 20:21 86 11/08/23 20:16 98 11/08/23 20:16 92 H 11/08/23 20:11 99 11/08/23 20:11 89 11/08/23 20:06 99 11/08/23 20:06 99 H 11/08/23 20:01 98 11/08/23 20:01 92 H 11/08/23 19:56 98 11/08/23 19:56 83 11/08/23 19:51 97 11/08/23 19:51 79 11/08/23 19:46 98 11/08/23 19:46 83 11/08/23 19:41 97 11/08/23 19:41 80 11/08/23 19:36 98 11/08/23 19:36 93 H 11/08/23 19:31 98 11/08/23 19:31 82 11/08/23 19:26 98 11/08/23 19:26 102 H 11/08/23 19:14 97 11/08/23 19:14 83 11/08/23 19:09 36.8 C 20 11/08/23 19:09 99 11/08/23 19:09 85 11/08/23 19:09 85 11/08/23 19:09 116/58 L 11/08/23 19:04 98 11/08/23 19:04 94 H 11/08/23 19:00 18 11/08/23 19:00 18 11/08/23 18:59 98 11/08/23 18:59 95 H 11/08/23 18:54 98 11/08/23 18:54 86 11/08/23 18:49 98 11/08/23 18:49 89 11/08/23 18:44 99 11/08/23 18:44 88 11/08/23 18:39 99 11/08/23 18:39 88 11/08/23 18:34 99 11/08/23 18:34 93 H 11/08/23 18:29 100 11/08/23 18:29 82 11/08/23 18:23 99 11/08/23 18:23 83 11/08/23 18:18 99 11/08/23 18:18 80 11/08/23 18:13 100 11/08/23 18:13 82 11/08/23 18:08 96 11/08/23 18:08 74 11/08/23 18:03 97 11/08/23 18:03 77 11/08/23 17:58 99 11/08/23 17:58 79 11/08/23 17:53 99 11/08/23 17:53 81 11/08/23 17:48 100 11/08/23 17:48 82 11/08/23 17:43 100 11/08/23 17:43 77 11/08/23 17:38 100 11/08/23 17:38 82 11/08/23 17:33 99 11/08/23 17:33 79 11/08/23 17:28 99 11/08/23 17:28 83 11/08/23 17:23 99 11/08/23 17:23 79 11/08/23 17:18 98 11/08/23 17:18 81 11/08/23 17:13 99 11/08/23 17:13 81 11/08/23 17:09 81 11/08/23 17:09 107/55 L 11/08/23 17:08 99 11/08/23 17:08 88 11/08/23 17:03 100 11/08/23 17:03 82 11/08/23 17:00 16 11/08/23 17:00 16 11/08/23 16:58 99 11/08/23 16:58 86 11/08/23 16:53 97 11/08/23 16:53 88 O2 Del Method 11/09/23 03:29 Room Air 11/08/23 22:40 Room Air 11/08/23 22:38 11/08/23 22:05 11/08/23 22:05 11/08/23 22:00 11/08/23 22:00 11/08/23 21:55 11/08/23 21:55 11/08/23 21:50 11/08/23 21:50 11/08/23 21:45 11/08/23 21:45 11/08/23 21:40 11/08/23 21:40 11/08/23 21:35 11/08/23 21:35 11/08/23 21:30 11/08/23 21:30 11/08/23 21:25 11/08/23 21:25 11/08/23 21:20 11/08/23 21:20 11/08/23 21:15 11/08/23 21:15 11/08/23 21:10 11/08/23 21:10 11/08/23 21:05 11/08/23 21:05 11/08/23 21:00 11/08/23 21:00 11/08/23 20:26 11/08/23 20:26 11/08/23 20:21 11/08/23 20:21 11/08/23 20:16 11/08/23 20:16 11/08/23 20:11 11/08/23 20:11 11/08/23 20:06 11/08/23 20:06 11/08/23 20:01 11/08/23 20:01 11/08/23 19:56 11/08/23 19:56 11/08/23 19:51 11/08/23 19:51 11/08/23 19:46 11/08/23 19:46 11/08/23 19:41 11/08/23 19:41 11/08/23 19:36 11/08/23 19:36 11/08/23 19:31 11/08/23 19:31 11/08/23 19:26 11/08/23 19:26 11/08/23 19:14 11/08/23 19:14 11/08/23 19:09 11/08/23 19:09 11/08/23 19:09 11/08/23 19:09 11/08/23 19:09 11/08/23 19:04 11/08/23 19:04 11/08/23 19:00 11/08/23 19:00 11/08/23 18:59 11/08/23 18:59 11/08/23 18:54 11/08/23 18:54 11/08/23 18:49 11/08/23 18:49 11/08/23 18:44 11/08/23 18:44 11/08/23 18:39 11/08/23 18:39 11/08/23 18:34 11/08/23 18:34 11/08/23 18:29 11/08/23 18:29 11/08/23 18:23 11/08/23 18:23 11/08/23 18:18 11/08/23 18:18 11/08/23 18:13 11/08/23 18:13 11/08/23 18:08 11/08/23 18:08 11/08/23 18:03 11/08/23 18:03 11/08/23 17:58 11/08/23 17:58 11/08/23 17:53 11/08/23 17:53 11/08/23 17:48 11/08/23 17:48 11/08/23 17:43 11/08/23 17:43 11/08/23 17:38 11/08/23 17:38 11/08/23 17:33 11/08/23 17:33 11/08/23 17:28 11/08/23 17:28 11/08/23 17:23 11/08/23 17:23 11/08/23 17:18 11/08/23 17:18 11/08/23 17:13 11/08/23 17:13 11/08/23 17:09 11/08/23 17:09 11/08/23 17:08 11/08/23 17:08 11/08/23 17:03 11/08/23 17:03 11/08/23 17:00 11/08/23 17:00 11/08/23 16:58 11/08/23 16:58 11/08/23 16:53 11/08/23 16:53
[2023-11-09] MEDS: MoRPHine SULFATE 2 MG/ML CARP IV STA (05:05)
--- NOTE | 2023-11-09 07:55 | Electrocardiogram Report ---
Test Reason : Blood Pressure : / mmHG Vent. Rate : 077 BPM Atrial Rate : 077 BPM P-R Int : 150 ms QRS Dur : 098 ms QT Int : 386 ms P-R-T Axes : 063 044 025 degrees QTc Int : 436 ms Normal sinus rhythm Incomplete right bundle branch block Normal ECG When compared with ECG of 27-SEP-2023 08:41, No significant change was found Confirmed by Ravin Redd ([id number]) on 11/09/2023 7:55:34 AM Referred By: Jaycee Chacon Confirmed By:Ravin Redd
--- NOTE | 2023-11-09 07:56 | Electrocardiogram Report ---
Test Reason : Blood Pressure : / mmHG Vent. Rate : 081 BPM Atrial Rate : 081 BPM P-R Int : 150 ms QRS Dur : 098 ms QT Int : 362 ms P-R-T Axes : 057 034 020 degrees QTc Int : 420 ms Normal sinus rhythm Incomplete right bundle branch block Borderline ECG When compared with ECG of 08-NOV-2023 17:43, No significant change was found Confirmed by Ravin Redd ([id number]) on 11/09/2023 7:55:49 AM Referred By: Jaycee Chacon Confirmed By:Ravin Redd
[2023-11-09 08:01] LABS: Anion Gap 10 (3-11); BUN Creatinine Ratio 11.8 (10-20); Blood Urea Nitrogen 4 mg/dl (6-23); Calcium 8.9 mg/dl (8.6-10.3); Carbon Dioxide 21 mmol/L (21-32); Chloride 106 mmol/L (98-107); Creatinine Clr Calc Pharmacy 256.2 ml/min; Est GFR (African American) > 150.0 ml/min; Est GFR (Non-African American) 145.4 ml/min; Glucose 99 mg/dl (70-99(Fasting)); Magnesium 1.3 mg/dl (1.7-2.4); Potassium 3.7 mmol/L (3.5-5.1); Sodium 137 mmol/L (136-145)
[2023-11-09 08:06] LABS: Troponin I High Sensitivity < 2.3 pg/ml (0-14)
[2023-11-09] MEDS: FLUTICASONE PROPIONATE NA SPR 16 GM BTL NAE PRN (08:30)
[2023-11-09] MEDS: valACYclovir HCL 500 MG TABLET PO SCH (08:33)
[2023-11-09 09:11] LABS: Estimated Average Glucose 100 mg/dl; Hemoglobin A1C 5.1 % (4.5-5.6)
[2023-11-09] MEDS: BUTORPHANOL TARTRATE 1 MG/ML VIAL IV ONE (10:12)
--- NOTE | 2023-11-09 10:18 | XCELERA ---
[id number] [id number]
--- NOTE | 2023-11-09 11:34 | Cardiology Progress Note ---
Date of Service November 09, 2023 Assessment & Plan (1) Atypical chest pain: (2) S/P tricuspid valve repair: (3) 28 weeks gestation of : Plan Etiology of atypical chest pain uncertain but patient is asymptomatic this morning and there is no evidence of myocardial ischemia (cardiac enzymes negative x 3, ECG benign, and echocardiogram with no wall motion abnormalities). Chest CT yesterday showed no central pulmonary embolism but was limited peripherally. Although small pulmonary embolism remains a possibility the fact that her pulmonary artery pressures are lower than previously (July 2023) and her troponin values were normal strongly suggest the absence of a hemodynamically significant pulmonary embolism. Tricuspid repair functioning appropriately, no change in mild to moderate tricuspid regurgitation over time, this is clinically insignificant. No contraindications to tocolytic therapy with nifedipine and terbutaline. No active cardiac issues, will sign off. Please contact if new symptoms or additional cardiac concerns arise. Cardiology follow-up as an outpatient with Dr. Powers. Subjective Uneventful night. No further chest pain. Comfortable with no somatic complaints, denies dyspnea, palpitations, or lightheadedness. Telemetry showed sinus rhythm at 90-100 bpm with occasional PACs. Physical Exam Physical Exam: Gravid female in no distress. BP normotensive. Pulse 100 bpm and regular. Respirations 18 unlabored Skin: no ecchymoses or generalized lesions. HEENT: unremarkable. Neck: JVP at the clavicle at 90 degrees, no carotid bruits. Lungs: clear bilaterally. Cardiac: regular rhythm, normal S1 and S2, 2/6 systolic murmur left sternal border/nonradiating, no diastolic murmur. Abdomen: Gravid, benign. Extremities: no edema, pulses intact. Neurologic: normal affect and conversation, nonfocal. Results & Data Vital Signs (Past 12 Hours) Vital Signs Temp Pulse Resp BP Pulse Ox O2 Del Method 11/09/23 10:57 97.7 F 99 H 18 119/65 97 Room Air 11/09/23 08:18 98.1 F 100 H 18 144/94 H 97 Room Air 11/09/23 03:29 98.1 F 97 H 20 121/73 93 Room Air Laboratory Results Troponin negative x 3. Normal electrolytes, BUN 4, creatinine 0.34. Diagnostic Findings Echocardiogram showed mildly dilated left ventricle with normal systolic function (EF 60-65%) with normal wall motion, mildly dilated RV with normal systolic function, tricuspid annuloplasty ring with mild to moderate tricuspid regurgitation and mild pulmonary hypertension. Compared with 07/05/2023 study, no significant change. PG Care Time/CCT Total # of Minutes Spent Total Time Spent with Patient: Total time spent is greater than 50% in coordination of care (as documented) at patient's floor/unit and/or counseling patient: Coding Level of Care Code 19735 SUB INP/OBS CARE 3/50MIN Diagnoses Atypical chest pain R07.89 S/P tricuspid valve repair Z98.890 28 weeks gestation of Z3A.28
--- NOTE | 2023-11-09 11:57 | Labor Progress Brief Note ---
Date of Service November 09, 2023 Subjective Reason For Note: Routine Evaluation I came to see patient this morning who was lying in bed in no acute distress or any obvious discomfort. She was awake and alert. Assessment & Plan (1) Gestational diabetes mellitus: Plan: on insulin 10 units daily (2) 33 weeks gestation of : Plan: continue to monitor for ctx (3) Decreased movement affecting management of mother, antepartum: Plan: NST daily Fetus number: single or unspecified fetus Qualified Code(s): O36.8190 - Decreased movements, unspecified trimester, not applicable or unspecified (4) uterine contractions in third trimester, antepartum: Plan: continue tocolytics Physical Exam Constitutional: WD/WN, vitals as above She denies any vaginal spotting or bleeding. No leakage of any fluid. She is passing gas and tolerating her diet. Gastrointestinal (Abdomen): Inspection/Auscultation: abdomen normal to inspection gravid fundus and palpates soft with no tightening noted. no pain on abdominal exam or any palpable contractions noted. Musculoskeletal: Extremities: extremities normal to inspection Skin: no rashes, warm and dry Neurologic: patellar DTR's 2+ bilat, sensation intact Psychiatric: A+Ox3, euthymic affect Genitourinary: OB Exam Monitor Tracing: + external FHT monitor used, + external uterine monitor used, + category I and + normal FHT variability I reviewed the NST from this morning with irregular contractions noted. Cat 1. I did not re-examine her cervix as she was checked multiple time earlier and when I spoke to Mary Jacob she was closed and thick. She is comfortable at this time Results & Data Vital Signs (Past 12 Hours) Vital Signs Temp Pulse Resp BP Pulse Ox O2 Del Method 11/09/23 10:57 36.5 C 99 H 18 119/65 97 Room Air 11/09/23 08:18 36.7 C 100 H 18 144/94 H 97 Room Air 11/09/23 03:29 36.7 C 97 H 20 121/73 93 Room Air Laboratory Results 11/08/23 11/08/23 11/08/23 14:00 14:24 20:01 WBC 10.16 RBC 3.76 L Hgb 12.5 Hct 35.8 L MCV 95.2 MCH 33.2 MCHC 34.9 RDW Std Deviation 44.0 RDW Coeff of Des 12.6 Plt Count 126 L MPV 12.1 Immature Gran % (Auto) 1.1 Neut % (Auto) 63.8 Lymph % (Auto) 22.0 [place] % (Auto) 12.4 Eos % (Auto) 0.4 Baso % (Auto) 0.3 Neut # (Auto) 6.48 Lymph # (Auto) 2.24 [place] # (Auto) 1.26 H Eos # (Auto) 0.04 Baso # (Auto) 0.03 Immature Gran # (Auto) 0.11 Sodium 133 L Potassium 3.2 L Chloride 103 Carbon Dioxide 22 Anion Gap 8 BUN 5 L Creatinine 0.35 L Est Cr Clr Drug Dosing 248.8 Est GFR ( Amer) > 150.0 Est GFR (Non-Af Amer) 144.0 BUN/Creatinine Ratio 14.3 Glucose 102 H POC Glucose Estimat Average Glucose Hemoglobin A1c Calcium 8.4 L Magnesium Total Bilirubin 0.5 AST 15 ALT 12 Alkaline Phosphatase 113 H Troponin I High Sens 2.9 2.4 Total Protein 6.1 Albumin 3.4 Globulin 2.7 Albumin/Globulin Ratio 1.3 Urine Color Yellow Urine Appearance Clear Urine pH 7.0 Ur Specific [place] 1.006 Urine Protein Negative Urine Glucose (UA) Negative Urine Ketones Negative Urine Blood Negative Urine Nitrite Negative Urine Bilirubin Negative Urine Urobilinogen Negative Ur Leukocyte Esterase Negative Urine Opiates Screen Neg Ur Methadone, Qual Neg Urine Barbiturates Neg Ur Phencyclidine (PCP) Neg U Amphetamin/Meth Scrn Neg MDMA (Ecstasy) Screen Neg U Benzodiazepines Scrn Neg Ur Cocaine Metabolite Neg U Marijuana (THC) Screen Pos H 11/09/23 11/09/23 11/09/23 06:44 08:17 10:59 WBC RBC Hgb Hct MCV MCH MCHC RDW Std Deviation RDW Coeff of [place] Count MPV Immature Gran % (Auto) Neut % (Auto) Lymph % (Auto) [place] % (Auto) Eos % (Auto) Baso % (Auto) Neut # (Auto) Lymph # (Auto) [place] # (Auto) Eos # (Auto) Baso # (Auto) Immature Gran # (Auto) Sodium 137 Potassium 3.7 Chloride 106 Carbon Dioxide 21 Anion Gap 10 BUN 4 L Creatinine 0.34 L Est Cr Clr Drug Dosing 256.2 Est GFR ( Amer) > 150.0 Est GFR (Non-Af Amer) 145.4 BUN/Creatinine Ratio 11.8 Glucose 99 POC Glucose 91 90 Estimat Average Glucose 100 Hemoglobin A1c 5.1 Calcium 8.9 Magnesium 1.3 L Total Bilirubin AST ALT Alkaline Phosphatase Troponin I High Sens < 2.3 Total Protein Albumin Globulin Albumin/Globulin Ratio Urine Color Urine Appearance Urine pH Ur Specific [place] Urine Protein Urine Glucose (UA) Urine Ketones Urine Blood Urine Nitrite Urine Bilirubin Urine Urobilinogen Ur Leukocyte Esterase Urine Opiates Screen Ur Methadone, Qual Urine Barbiturates Ur Phencyclidine (PCP) U Amphetamin/Meth Scrn MDMA (Ecstasy) Screen U Benzodiazepines Scrn Ur Cocaine Metabolite U Marijuana (THC) Screen
--- NOTE | 2023-11-09 12:27 | Ultrasound Report ---
BILATERAL LOWER EXTREMITY VENOUS DOPPLER HISTORY: Acute pain and swelling of the right lower leg DVT COMPARISON STUDY: 06/19/2020. FINDINGS: There is normal compressibility, flow, and augmentation within the bilateral lower extremit y deep venous systems. IMPRESSION: No DVT within the right or left lower extremity. ACT 112: Negative or not required by law. Electronically signed by: Elliott Camp M.D. 11/09/2023 12:26 PM
[2023-11-09] MEDS: FLUTICASONE HFA 220 MCG INHALER INH SCH (13:31)
[2023-11-09] MEDS: MAGNESIUM SULFATE / D5W 1 GM/100 ML BAG IV SCH (13:34)
--- NOTE | 2023-11-09 16:38 | Hospitalist Progress Note ---
Date of Service November 09, 2023 Assessment & Plan (1) Atypical chest pain: (2) History of VA (myocardial infarction): (3) Anxiety: (4) Tobacco abuse: (5) Asthma: (6) Bipolar disorder: (7) S/P tricuspid valve repair: (8) History of pulmonary embolism: (9) 33 weeks gestation of : (10) Gestational diabetes mellitus: Plan Pt is a [id number], 33 weeks female with PMHx significant for prior history of VA, Hx of IV drug abuse on suboxone, h/o tricuspid valve endocarditis s/p RV repair in 2015, bipolar disorder, PTSD, asthma, Hx of PE on Lovenox, tobacco and medical marijuana use, gestational DM who presented with contractions and decreased movements. She subsequently developed chest pain on 11/08 for which the hospitalist service was consulted. Atypical chest pain , 33 weeks On exam stated that chest pain started 1 hr ago, achy, constant, 4/10 in center of chest, radiates to shoulder blades, worse with sitting up, no associated SOB. Hx of GERD on prilosec. Significant cardiac Hx including Hx of infective endocarditis s/p tricuspid valvuloplasty Also Hx of PE currently on Lovenox. Currently denies lower extremity redness, tenderness or swelling Follows with [facility] Cardiology more frequently while especially at this stage. Per chart review, had a recent echo that noted mild pulm HTN, no right heart cath recommended while . [facility] with [facility] [place] [place] annually. EKG on floor- NSR, hs-trop not elevated x3 Echo noting EF 60-65%, LV and RV dilation, mild to mod tricuspid regurgitation, annuloplasty ring, increased R ventricular pressure Cardiology consulted, appreciate further recs -will defer on d-dimer as pt currently on anticoagulation and d-dimer can be elevated in -CTA PE protocol ordered by Cardiology- no acute acute central PE noted, but notes suboptimal contrast -per Cardiology based on echo, as pressures lower and trop normal, it argues against a hemodynamically significant PE. Continue Lovenox 40mg SQ Telemetry monitoring 33 Weeks Gestation Decreased Movement Contractions Pt presenting with concern for decreased movement and noted contractions movements currently present, resolved without intervention Pt currently on nifedipine and terbutaline for tocolytic therapy for contractions -continue, per OB and Cardiology Continue with monitoring per OB Continue vitamin Continue valacyclovir prevention/suppressive therapy Anxiety Pt states that she is currently treating with medical marijuana at home last us ed 2 days ago Requesting treatment on 11/09 Case discussed with Psychiatry Dr Arboleda -advised prn hydroxyzine (Atarax) and starting the SSRI Sertraline which can be used in , for shelter management -advised not using benzos Case discussed with pt's OB, Dr Huetra who is in agreement -also recommended due to pt's high fundus, having her sit in a chair more frequently/sitting up to help with the feeling of having a panic attack -recommended starting a nicotine patch which is ok in as pt might be withdrawing and feeling more anxious as a result Discussed with pt, previously noted that hydroxyzine was like taking "skittles" for her but in agreement with a trial Pt started on hydroxyzine 25mg q8h and started on sertraline 25mg daily. Consider uptitration dose of Sertraline after 1 week Encourage meditation, deep breathing and other relaxation techniques With persistent/ increasing anxiety, consider psychiatry consult PTSD Bipolar Disorder Pt on medical marijuana Will need close PCP/Psychiatry follow up after discharge Hypokalemia Replete as needed Gestational DM Glucose level mildly elevated at 102 hgba1c of 5.1 Continue insulin glargine 10U qhs per primary team Hx of PE Chest CTA from Aug 2023 noting chronic PE Repeat CTA PE protocol as above ordered by Cardiology Continue Lovenox 40mg SQ Hx of IV drug use Reportedly last use in 2018 Continue subutex 0.5mg BID Asthma Continue flovent inhaler GERD Continue pantoprazole Tobacco use Encourage cessation CODE STATUS: Full code DVT prophylaxis: On Lovenox 40mg SQ Diet: OB diet Dispo: per primary team Thank you for this consultation. We will follow the patient with you during their hospital stay. You can reach a member of the [facility] Hospitalist Team 24/04 via the hospitalist role on tiger text Subjective Pt was seen in the AM. Stated that her chest pain had resolved but noting that she was a bit anxious and felt like she was having "panic attacks". Feels like her heart is racing. 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 Also cigarette smoker. States that Vistaril is like "skittles" for her. Review of Systems Review of Systems: All systems reviewed & are unremarkable except as noted in Subjective Physical Exam Physical Exam: General: Alert, oriented. No acute distress Skin: surgical scar noted on anterior chest wall Psych: Appropriate mood and affect Neuro: No gross deficits HEENT: NC/AT Chest: Nontender to palpation. CV: RRR Resp: Breath sounds clear bilaterally, no increased effort of breathing. No crackles/rhonchi/rales. Abdomen: Soft, gravid Extremities: No edema in lower extremities bilaterally. No calf tenderness Results & Data Results & Data Vital Signs (Past 12 Hours) Vital Signs Temp Pulse Pulse Resp BP Pulse Ox O2 Del Method 11/09/23 10:57 36.5 C 99 H 18 119/65 97 Room Air 11/09/23 08:18 36.7 C 100 H 18 144/94 H 97 Room Air 11/09/23 08:00 87 11/09/23 03:29 36.7 C 97 H 20 121/73 93 Room Air (5) Asthma Asthma complication type: unspecified Asthma persistence: unspecified Asthma severity: unspecified severity Qualified Code(s): J45.909 - Unspecified asthma, uncomplicated
[2023-11-09] MEDS: hydrOXYzine HCl 25 MG TAB PO PRN (17:12)
[2023-11-09] MEDS: NICOTINE 14 MG/24 HR PATCH TD SCH (17:12)
[2023-11-09] MEDS: SERTRALINE HCL 50 MG TABLET PO SCH (17:12)
[2023-11-09] MEDS: MAGNESIUM SULFATE / D5W 1 GM/100 ML BAG IV ONE (21:09)
[2023-11-09] MEDS: NITROGLYCERIN SL 0.4 MG/TAB TAB SL STA (22:15)
[2023-11-09] MEDS: LACTATED RINGER'S 1,000 ML IV ONE (22:47)
[2023-11-09 23:04] LABS: Influenza A virus by PCR Negative (Neg); Influenza B virus by PCR Negative (Neg); RSV by PCR Negative (Neg); SARS CoV2 RNA(COVID-19) Ceph NEGATIVE (Negative)
[2023-11-09] MEDS: POTASSIUM CHLORIDE CRTAB 20 MEQ TABCR PO STA (23:35)
[2023-11-09 23:47] LABS: Partial Thromboplastin Ratio 0.9; Partial Thromboplastin Time 26 Seconds (21-31)
[2023-11-10 06:04] LABS: Basophils # (auto) 0.03 K/uL (0.00-0.20); Basophils % (auto) 0.3 %; Eosinophils # (auto) 0.05 K/uL (0.00-0.50); Eosinophils % (auto) 0.5 %; Hematocrit (blood only) 35.3 % (37.0-47.0); Hemoglobin 11.7 g/dl (12.0-16.0); Immature Granulocytes # (auto) 0.11 K/uL (0.01-0.20); Immature Granulocytes % (auto) 1.2 %; Lymphocytes # (auto) 2.26 K/uL (1.20-3.40); Lymphocytes % (auto) 23.8 %; Mean Corpuscular Hemoglobin 32.7 pg (25.0-34.0); Mean Corpuscular Hgb Conc 33.1 g/dL (32.0-36.0); Mean Corpuscular Volume 98.6 fL (80.0-100.0); Mean Platelet Volume 12.1 fL (9.4-12.4); Monocytes # (auto) 1.14 K/uL (0.11-0.59); Neutrophils % (auto) 62.2 %; Platelet Count 133 K/uL (130-400); RDW Coefficient of Variation 12.8 % (11.5-14.5); RDW Standard Deviation 46.4 fL (36.4-46.3); Red Blood Count 3.58 M/uL (4.20-5.40); White Blood Count 9.49 K/ul (4.8-10.8)
[2023-11-10 06:21] LABS: Anion Gap 7 (3-11); BUN Creatinine Ratio 17.1 (10-20); Blood Urea Nitrogen 6 mg/dl (6-23); Calcium 8.1 mg/dl (8.6-10.3); Carbon Dioxide 23 mmol/L (21-32); Chloride 105 mmol/L (98-107); Creatinine Clr Calc Pharmacy 248.8 ml/min; Est GFR (African American) > 150.0 ml/min; Glucose 93 mg/dl (70-99(Fasting)); Magnesium 1.4 mg/dl (1.7-2.4); Phosphorus 2.8 mg/dl (2.5-4.9); Potassium 3.4 mmol/L (3.5-5.1); Sodium 135 mmol/L (136-145)
--- OUTSIDE RECORDS SUMMARY | 2023-11-10 06:31 | External Medical Summary | Summary of Care ---
Author Name Unknown Organization [facility] Address [address] [place] [address] Phone [phone] Care Team Providers Care Supervisor Winter Name Role Phone Unavailable Primary Care Provider Unavailabl e Encounter Details Date Type Department Care Team (Late st Contact Info) Description 11/08/2023 Result Scan Unspecified Department Cameron Peguero, DO [address] [place] [address] <No scans attached> Allergies Active Allergy Reactions Criticality Noted Date Comments Sulfamethoxazole-Trimetho prim Nausea/vomiting Medium 01/19/2018 Nausea when taken with keflex Doxycycline Nausea/vomiting Medium 09/10/2018 Cephalexin Nausea/vomiting Medium 01/19/2018 Nausea when taken with bactrim documented as of this encounter (statuses as of 11/09/2023) Medications Medication Sig Dispensed Refills Start Date [...] weeks gestation. 12 mL 5 06/19/2023 Active Promethazine HCl 25 MG Rectal Suppository [...] Additional Information Patient not taking.Reported on 11/03/2023 theAudience Flex System w/Device Kit Use to test blood sugars 4 times daily (fasting, 1 hour after breakfast, lunch, and dinner) 1 Kit 0 10/11/2023 Active [employer] In Vitro Strip (Glucose Blood) Use to test blood sugars 4 times daily (fasting, 1 hour after breakfast, lunch, and dinner) 125 Strip 6 10/11/2023 Active [employer] Delica Lancets 30G Use to test blood [...] once daily. 100 Each 3 11/03/2023 Active Ondansetron 4 MG Oral Tablet Disintegrating (Zofran) PLACE 1 TABLET ON TONGUE AND DISSOLVE EVERY 8 HOURS NEEDED FOR NAUSEA 10 Tablet 0 11/08/2023 Active Hospital, Clinic, or Other Facility Administered [...] 2.5 mgIndications:BLAKE (dyspnea on exertion),PHT (pulmonary hypertension) ([facility]),Mild persistent asthma with exacerbation 2.5 mg NEBULIZER Q4H PRN 09/01/2023 Active documented as of this encounter (statuses as of 11/09/2023) Active Problems Problem Noted Date Diagnosed Date [...] A1C - [facility] 5.1 08/07/2021 08:16 AM 10/19/23: [facility] ADAPT consult complete. Enrolled in Current Health. 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 Advised patient to send us readings via the chat message --KW 10/31/23-elevated sugars; schedule for adapt 11/03/23: ADAPT visit complete; elevated FBS; ordered Lantus 10 units at bedtime Last Assessment & Plan: Patient encouraged to check BG 4x daily and report via Theravance neto to [facility] ADAPT. Had issues with Current Health due to work schedule. Blood pressure elevated without history of HTN 1 11/07/2022 Food insecurity 08/14/2023 Overview: Per [facility] Protocol Supervision of high risk in third trim guzman 08/08/2023 Last Assessment & Plan: growth and fluid appropriate for gestational age. All visualized anatomy appears normal. BLAKE (dyspnea on exertion) 06/26/2023 Bipolar disease during 06/09/2023 Overview: Reports bipolar. Denies SI/HI. [facility] Last Assessment & Plan: No meds, no concerns reported today. 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 S/p valve repair and denies any further issues. Also reports history of [place]. She had a negative heart catheterization at [...] in January 2023. She reports that her paid search marketing analyst said she had PH, but that [...] patients who previously received 17P. Patient's primary JUNIOR PROGRAMMER ANALYST can coordinate therapy if desired. For patients [...] by Date resolved Lack of housing Emergency longterm resources given 11/02/2023 Mercedez Valente RN 11/02/2023 [...] then ERLTCS. Last in 2019 at [facility]. Desires repeat with tubal at [facility]. Last Assessment & Plan: Planning ERCD History of [place] (myocardial infarction) 07/27/2018 Overview: Age 27, s/p [...] as of this encounter (statuses as of 11/09/2023) Resolved Problems Problem Noted Date Diagnosed Date [...] in 10 months. Using medical marijuana through [employer] 01/14/2020 Angy Chase RN 01/14/2020 nutrition Due [...] Taken Date entered Entered by Date resolved [facility] breastpump form completed and faxed to [facility] for pt. 07/23/2020 [...] 10/06/2020 Overview: Delivered at 35w0d Previously on [place] Stopped at 36w Opioid dependence, uncomplicated 01/16/2019 [...] as of this encounter (statuses as of 11/09/2023) Immunizations Name Administration Dates Next Due COVID-19 [...] money to get more. Sometimes true 11/2022 [place] Depression Scale Answer Date Recorded [place] Depression Scale Total 9 11/02/2023 The thought [...] Info) Description 11/10/2023 8:30 AM EST Telemedicine Nozzle Tender Obstetrics Maternal Medicine, [address] [place] [address] Rickie Kearns CRNP [address] [facility] [address] [place] [address] 11/10/2023 9:15 AM EST Office Visit Gynecology/Obstetr ics [facility] Ennis [address] [place] [address] Lesa Degroot PA-C [address] [place] [address] Jennifer Ennis Stress Tests Jalen [address] [place] [address] 11/13/2023 8:30 AM EST Office Visit Gynecology/Obstetr ics [facility] [address] [place] [address] Marcellus Lira MD [address] [place] [address] Ennis, Non Stress Tests Jalen [address] [place] [address] 11/14/2023 3:30 PM EST Telemedicine Nutrition, Jalen Ennis [address] [place] [address] Kassi Cole, GERALD [address] [place] [address] 11/17/2023 9:00 AM EST Office Visit Gynecology/Obstetr ics Saundra Ennis [address] [place] [address] Marcellus Lira MD [address] [place] [address] Raymon, Non Stress Tests Jalen [address] [place] [address] 11/20/2023 10:15 AM EST Office Visit Gynecology/Obstetr ics Saundra Ennis [address] [place] [address] Shantelle Richmond CRNP [address] [place] [address] Raymon, Non Stress Tests Jalen [address] [place] [address] 11/24/2023 3:30 PM EST Office Visit Nozzle Tender Obstetrics Maternal Medicine, [place] [address] [place] [address] Cristino Garcia, [address] [place] [address] 11/24/2023 3:30 PM EST Imaging Radiology [place] [address] [facility] [place], [place] [address] 11/27/2023 5:10 PM EST [facility] [address] [facility], [place] [address] [facility] [address] [place] [facility] [place] [address] 11/28/2023 8:30 AM EST Office Visit Gynecology/Obstetr ics [facility] [address] [place] [address] Marcellus Lira MD [address] [place] [address] Ennis, Non Stress Tests Jalen [address] [place] [address] 12/01/2023 9:00 AM EST Office Visit Gynecology/Obstetr ics [facility] [address] [place] [address] Sharron Robertson CRNP [address] [place] [address] Ennis, Non Stress Tests Jalen [address] [place] [address] 12/04/2023 11:00 AM EST Office Visit Gynecology/Obstetr ics [facility] [address] [place] [address] Shantelle Richmond CRNP [address] [place] [address] Ennis, Non Stress Tests Jalen [address] [place] [address] 12/07/2023 9:45 AM EST Office Visit Gynecology/Obstetr ics Saundra Ennis [address] [place] [address] Sharron Robertson CRNP [address] [place] [address] Ennis, Non Stress Tests Jalen [address] [place] [address] 12/11/2023 9:00 AM EDT Office Visit Gynecology/Obstetr [facility] Saundra Nogueiras [address] [place] [address] Marcellus Lira MD [address] [place] [address] 12/18/2023 11:48 AM EDT Hospital Encounter WLL1 [facility], Women's Lower Level 1st Floor [address] [place] [address] Keiry Loza, DO [address] [place] [address] 12/18/2023 11:48 AM EDT - 12/18/2023 2:00 PM EDT Surgery OBTR [facility], OB Triage, Women's Lower Level 1st Floor [address] [place] [address] Keiry Loza, DO [address] [place] [address] DELIVERY AND CARE 12/21/2023 11:30 AM EDT Office Visit Gynecology/Obstetr [facility] Saundra Nogueiras [address] [place] [address] Shantelle Richmond CRNP [address] [place] [address] 02/22/2024 10:45 AM EDT Office Visit [facility] [address] [place] [address] Summer Cartagena CRNP [address] [place] [address] Scheduled Procedures Name Priority Associated [...] this encounter Medical Devices Implanted Type Area Termite Technician Device Identifier Shelf Expiration Date Model / Serial / Lot Ring Triad [id number] - [id number] Implanted:Qty: 1 on 08/09/2016 by Suha Harding MD at OR [facility] N/A: Heart [employer] 08/31/2019 [id number] / [id number] / [id number] documented as of this encounter Procedures Procedure Name Priority Date/Time Associated Diagnosis Comments OUTSIDE LAB RESULTS 11/08/2023 RADIOLOGY SCANNED RESULT 11/08/2023 documented in this encounter Results * RADIOLOGY SCANNED RESULT (11/08/2023) 11/08/2023 Cameron Peguero DO DIAGNOSTIC RADIOLOGY SERVICES * OUTSIDE LAB RESULTS (11/08/2023) 11/08/2023 Cameron Peguero DO LABORATORY documented in this encounter Advance Directives Latest [...]
--- OUTSIDE RECORDS SUMMARY | 2023-11-10 06:31 | External Medical Summary | Summary of Care ---
Author Name Unknown Organization [facility] Address [address] [place] [address] Phone [phone] Care Team Providers Care Boot Trimmer Name Role Phone Unavailable Primary Care Provider Unavailabl e Encounter Details Date Type Department Care Team (Late st Contact Info) Description 11/09/2023 Result Scan Unspecified Department Jaycee Gray [facility] [address] [facility] [address] <No scans attached> Allergies Active Allergy Reactions [...] Additional Information Patient not taking.Reported on 11/03/2023 [employer] Flex System w/Device Kit Use to test blood sugars 4 times daily (fasting, 1 hour after breakfast, lunch, and dinner) 1 Kit 0 10/11/2023 Active [employer] In Vitro Strip (Glucose Blood) Use to test blood sugars 4 times daily (fasting, 1 hour after breakfast, lunch, and dinner) 125 Strip 6 10/11/2023 Active [email or web address] DelYellow Pages Lancets 30G Use to test blood sugars [...] (dyspnea on exertion),PHT (pulmonary hypertension) ([facility]),Mild persistent asthma with exacerbation 2.5 mg [...] - [facility] 5.1 08/07/2021 08:16 AM 10/19/23: [facility] ADAPT consult complete. Enrolled in Current Health. 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 Advised patient to send us readings via the chat message --KW 10/31/23-elevated sugars; schedule for adapt 11/03/23: ADAPT visit complete; elevated FBS; ordered Lantus 10 units at bedtime Last Assessment & Plan: Patient encouraged to check BG 4x daily and report via Tang Song neto to [facility] ADAPT. Had issues with Current Health due to work schedule. Blood pressure elevated without history of HTN 1 11/07/2022 Food insecurity 08/14/2023 Overview: Per [facility] Protocol Supervision of high risk [...] in January 2023. She reports that her import clerk said she had PH, but that [...] patients who previously received 17P. Patient's primary FIELD PARTY MANAGER can coordinate therapy if desired. For [...] by Date resolved Lack of housing Emergency group home resources given 11/02/2023 Mercedez Valente RN 11/02/2023 [...] in 10 months. Using medical marijuana through [employer] [facility] 01/14/2020 Angy Chase RN 01/14/2020 nutrition [...] Taken Date entered Entered by Date resolved [facility] breastpump form completed and fax[facility] to [facility] for pt. 07/23/2020 Lisset Gonzalez RN 07/23/2020 [...] amphedamines, marijuana on tox screen 07/31/18 at [facility] Bipolar 1 disorder 07/12/2017 [...] 4 dose (ActHib) 07/08/1992,,1991,06/04 HPV Vaccine, 4-Valent 07/14/2011,03/15/2011,032 10/2010 HPV Vaccine, 9-Valent 07/14/2011,03/15/2011,12/01 Haemophilius B [...] money to get more. Sometimes true 11/2022 [place] Depression Scale Answer Date Recorded [place] Depression Scale Total 9 11/02/2023 The thought [...] Info) Description 11/10/2023 8:30 AM EST Telemedicine Hat Cleaner Obstetrics Maternal Medicine, [address] [place] [address] Rickie Kearns [facility] [address] [facility] [address] [place] [address] 11/10/2023 9:15 AM EST Office Visit Gynecology/Obstetr ics [facility] Ennis [address] [place] [address] Lesa Degroot PA-C [address] [place] [address] Jennifer Ennis Stress Tests Jalen [address] [place] [address] 11/13/2023 8:30 AM EST Office Visit Gynecology/Obstetr ics [facility] [address] [place] [address] Marcellus Lira MD [address] [place] [address] Ennis, Non Stress Tests Jalen [address] [place] [address] 11/14/2023 3:30 PM EST Telemedicine Nutrition, Jalen Ennis [address] [place] [address] Kassi Cole RDN [address] [place] [address] 11/17/2023 9:00 AM EST Office Visit Gynecology/Obstetr banner Saundra Ennis [address] [place] [address] Marcellus Lira MD [address] [place] [address] Ennis, Non Stress Tests Jalen [address] [place] [address] 11/20/2023 10:15 AM EST Office Visit Gynecology/Obstetr ics Saundra Ennis [address] [place] [address] Shantelle Richmond CRNP [address] [place] [address] Ennis, Non Stress Tests Jalen [address] [place] [address] 11/24/2023 3:30 PM EST Office Visit Hat Cleaner Obstetrics Maternal Medicine, [place] [address] [place] [address] Cristino Garcia, [address] [place], [place] [address] 11/24/2023 3:30 PM EST [facility] [address] [facility] [place], [place] [address] 11/27/2023 5:10 PM EST [facility], [place] [address] [facility], [place] [address] [facility] [address] [facility], [place] [address] 11/28/2023 8:30 AM EST Office Visit Gynecology/Obstetr ics [facility] [address] [place] [address] Marcellus Lira MD [address] [place] [address] Ennis, Non Stress Tests Jalen [address] [place] [address] 12/01/2023 9:00 AM EST Office Visit Gynecology/Obstetr ics [facility] En[facility] [address] [place] [address] Sharron Robertson CRNP [address] [place] [address] Ennis, Non Stress Tests Jalen [address] [place] [address] 12/04/2023 11:00 AM EST Office Visit Gynecology/Obstetr ics [facility] [address] [place] [address] Shantelle Richmond CRNP [address] [place] [address] Ennis, Non Stress Tests Jalen [address] [place] [address] 12/07/2023 9:45 AM EST Office Visit Gynecology/Obstetr ics Saundra Ennis [address] [place] [address] Sharron Robertson CRNP [address] [place] [address] Jennifer Ennis Stress Tests Jalen [address] [place] [address] 12/11/2023 9:00 AM EDT Office Visit Gynecology/Obstetr banner Saundra Nogueiras [address] [place] [address] Marcellus Lira MD [address] [place] [address] 12/18/2023 11:48 AM EDT Hospital Encounter [facility] Women's Lower Level 1st Floor [address] [place] [address] Keiry Loza, DO [address] [place] [address] 12/18/2023 11:48 AM EDT - 12/18/2023 2:00 PM EDT Surgery OBTR [facility], OB Triage, Women's Lower Level 1st Floor [address] [place] [address] Keiry Loza, DO [address] [place] [address] DELIVERY AND CARE 12/21/2023 11:30 AM EDT Office Visit Gynecology/Obstetr banner Saundra Nogueiras [address] [place] [address] Shantelle Richmond CRNP [address] [place] [address] 02/22/2024 10:45 AM EDT Office Visit Cardiology [facility] [address] [place] [address] Summer Cartagena CRNP [address] [place] [address] Scheduled Procedures Name Priority Associated [...] this encounter Medical Devices Implanted Type Area Conductor/Engineer Device Identifier Shelf Expiration Date Model / Serial / Lot Ring Triad [id number] - [id number] Implanted:Qty: 1 on 08/09/2016 by Suha Harding MD [place] [facility] N/A: Heart [employer] 08/31/2019 [id number] / [id number] / [id number] documented as of this encounter Procedures Procedure Name Priority Date/Time Associated Diagnosis Comments OUTSIDE LAB RESULTS 11/09/2023 documented in this encounter Results * OUTSIDE LAB RESULTS (11/09/2023) 11/09/2023 Jaycee Ceja MD LABORATORY documented in this encounter Advance Directives [...]
--- OUTSIDE RECORDS SUMMARY | 2023-11-10 06:32 | External Medical Summary | Summary of Care ---
Author Name Unknown Organization [facility] Address [address] [place] [address] Phone [phone] Care Team Providers Care Veneer Repairer Machine Name Role Phone Unavailable Primary Care Provider Unavailabl e Encounter Details Date Type Department Care Team (Late st Contact Info) Description 11/08/2023 Telephone Gynecology/Obstetrics [facility] [address] [place] [address] Jaycee Gray MD [address] [place] [address] Allergies Active Allergy Reactions Criticality Noted Date [...] Additional Information Patient not taking.Reported on 11/03/2023 Meridian-IQ Flex System w/Device Kit Use to test blood sugars 4 times daily (fasting, 1 hour after breakfast, lunch, and dinner) 1 Kit 0 10/11/2023 Active Mer[employer] In Vitro Strip (Glucose Blood) Use to [...] 2.5 mgIndications:BLAKE (dyspnea on exertion),PHT (pulmonary hypertension) (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 Advised patient to send us readings via the chat message --KW 10/31/23-elevated sugars; schedule for adapt 11/03/23: ADAPT visit complete; elevated FBS; ordered Lantus 10 units at bedtime Last Assessment & Plan: Patient encouraged to check BG 4x daily and report via Fluentify neto to M ADAPT. Had issues with Current Health due to work schedule. Blood pressure elevated without history of HTN 1 11/07/2022 Food insecurity 08/14/2023 Overview: Per [facility] Protocol Supervision of high risk in third trim guzman 08/08/2023 Last Assessment & Plan: growth and fluid appropriate for gestational age. All visualized anatomy appears normal. BLAKE (dyspnea on exertion) 06/26/2023 Bipolar disease during 06/09/2023 Overview: Reports bipolar. Denies SI/HI. Obtained counseling through [facility]. Last Assessment & Plan: No meds, no concerns reported today. 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 S/p valve repair and denies any further issues. Also reports history of MD. She had a negative heart catheterization at [...] in January 2023. She reports that her extension service agent said she had PH, but that they [...] therefore need to avoid antidepressants to avoid sairka. Reviewed Buspar PRN or daily or Hydroxyzine. [...] child born at 35 weeks. Was on [place] in previous pregnancies. Last Assessment & Plan: [...] patients who previously received 17P. Patient's primary LACE STRIPPER can coordinate therapy if desired. For patients [...] by Date resolved Lack of housing Emergency fci resources given 11/02/2023 Mercedez Valente RN 11/02/2023 [...] breech then ERLTCS. Last in 2019 at [facility]. Desires repeat with tubal at [facility]. Last Assessment & Plan: Planning ERCD History of MD (myocardial infarction) 07/27/2018 Overview: Age 27, s/p [...] in 10 months. Using medical marijuana through [employer] [facility] 01/14/2020 Angy Chase RN 01/14/2020 nutrition [...] Taken Date entered Entered by Date resolved [facility] breastpump form completed and faxed to [facility] for pt. 07/23/2020 Lisset Gonzalez RN [...] disorder 10/02/2017 01/12/2022 Bipolar 2 disorder 10/02/2017 Drug abuse 08/31/2017 03/13/2021 Overview: +opioids, amphedamines, [...] to get more. Sometimes true 11/2022 [place] Depression Scale Answer Date Recorded [place] Depression Scale Total 9 11/02/2023 The thought [...] Telephone Encounter - Angy Chase RN - 11/08/2023 12:57 PM EST Pt has not felt baby move in an hour. She called to say she is on her way to [facility]. I asked pt if she has ate and drank and she said yes. I asked if she was at home and without distractions. She said she is not but was on her way to the hospital because she felt she needed to be there. Advised to goto L&D if she desired. L&D aware. documented in this encounter Plan of Treatment Upcoming Encounters Date Type Department Care Team (Latest Contact Info) Description 11/10/2023 8:30 AM EST Telemedicine Molder Machine Tender Obstetrics Maternal Medicine, [place] [address] [facility] [address] [place] [address] Rickie Kearns CRNP [address] [address] 11/10/2023 9:15 AM EST Office Visit Gynecology/Obstetr ics [facility] [address] [place] [address] Lesa Degroot PA-C [address] [place] [address] [place], Non Stress Tests Jalen [address] [place] [address] 11/13/2023 8:30 AM EST Office Visit Gynecology/Obstetr [facility] [address] [place] [address] Marcellus Lira MD [address] [place] [address] [place], Non Stress Tests Jalen [address] [place] [address] 11/14/2023 3:30 PM EST Telemedicine Nutrition, [place] [address] [place] [address] Kassi Cole, [place] [address] [place] [address] 11/17/2023 9:00 AM EST Office Visit Gynecology/Obstetr [facility] [address] [place] [address] Marcellus Lira MD [address] [place] [address] [place], Non Stress Tests Jalen [address] [place] [address] 11/20/2023 10:15 AM EST Office Visit Gynecology/Obstetr ics [facility] [address] [place] [address] Shantelle Richmond CRNP [address] [place] [address] [place], Non Stress Tests Jalen [address] [place] [address] 11/24/2023 3:30 PM EST Office Visit Molder Machine Tender Obstetrics Maternal Medicine, [place] [address] [place] [address] Cristino Garcia, [address] [place] [address] 11/24/2023 3:30 PM EST Imaging Radiology [facility], [place] [address] [place] [address] 11/27/2023 5:10 PM EST [place] [address] [place] [address] [place] [address] [place] [address] 11/28/2023 8:30 AM EST Office Visit Gynecology/Obstetr ics [facility]an[facility]kerline Nogueiras [address] [place] [address] Marcellus Lira MD [address] [place] [address] Ray[place], Non Stress Tests Jalen [address] [place] [address] 12/01/2023 9:00 AM EST Office Visit Gynecology/Obstetr ics [facility] [place] [address] [place] [address] Sharron Robertson CRNP [address] [place] [address] Raymon Non Stress Tests J[facility] [address] [place] [address] 12/04/2023 11:00 AM EST Office Visit Gynecology/Obstetr ics [place] [address] [place] [address] Shantelle Richmond CRNP [address] [place] [address] Raymon Non Stress Tests Jalen [address] [place] [address] 12/07/2023 9:45 AM EST Office Visit Gynecology/Obstetr ics [place] Ray[place] [address] [place] [address] Sharron Robertson CRNP [address] [place] [address] Raymon Non Stress Tests Jalen [address] [place] [address] 12/11/2023 9:00 AM EDT Office Visit Gynecology/Obstetr [facility] Saundra [place] [address] [place] [address] Marcellus Lira MD [address] [place] [address] 12/18/2023 11:48 AM EDT Hospital Encounter WLL1 [facility], [facility] 1st [id number] Keiry Loza, DO [address] [facility] [place] [address] 12/18/2023 11:48 AM EDT - 12/18/2023 2:00 PM EDT Surgery OBTR [facility], OB Triage, Women's Lower Level 1st Floor [address] [place] [address] Keiry Loza DO [address] [place], [place] [id number] DELIVERY AND CARE 12/21/2023 11:30 AM EDT Office Visit Gynecology/Obstetr ics [facility] [place] [address] [place] [address] Shantelle Richmond CRNP [address] [place] [address] 02/22/2024 10:45 AM EDT Office Visit Cardiology [facility] [address] [place] [address] Summer Cartagena CRNP [address] [place] [address] Scheduled Procedures Name Priority Associated Diagnoses Date/Ti me DELIVERY AND CARE 39 weeks gestation of 12/18/2023 11:48 AM EDT Health Maintenance Due Date Last Done Comments Pneumococcal Vaccine: Pediatrics (0 to 5 Years) and At-Risk Patients (6 to 64 Years) (2 - PCV) 10/01/2020 10/01/2019, 02/11/2014 COVID-19 Vaccine (3 - season) 2023 03/12/2022, 02/10/2022 Depression Screening 11/17/2023 [...] this encounter Medical Devices Implanted Type Area Men'S Locker Room Attendant Device Identifier Shelf Expiration Date Model / Serial / Lot Ring Triad [id number] - [id number] Implanted:Qty: 1 on 08/09/2016 by Suha Harding MD at OR [facility] N/A: Heart [employer] 08/31/2019 [id number] / [id number] / [id number] documented as of this encounter Advance Directives [...]
--- OUTSIDE RECORDS SUMMARY | 2023-11-10 06:32 | External Medical Summary | Summary of Care ---
Author Name Unknown Organization [facility] Address [address] [place] [address] Phone [phone] Care Team Providers Care Hide Inspector Name Role Phone Unavailable Primary Care Provider Unavailabl e Encounter Details Date Type Department Care Team (Late st Contact Info) Description 11/09/2023 Orders Only [facility] [address] [place] [address] Sharron Robertson CRNP [address] [place] [address] Allergies Active Allergy Reactions Criticality Noted Date [...] Additional Information Patient not taking.Reported on 11/03/2023 [employer] Flex System w/Device Kit Use to test blood sugars 4 times daily (fasting, 1 hour after breakfast, lunch, and dinner) 1 Kit 0 10/11/2023 Active [employer] In Vitro Strip (Glucose Blood) Use to test blood sugars 4 times daily (fasting, 1 hour after breakfast, lunch, and dinner) 125 Strip 6 10/11/2023 Active [employer] Delica Lancets 30G Use to test blood [...] 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 Advised patient to send us readings via the chat message --KW 10/31/23-elevated sugars; schedule for adapt 11/03/23: ADAPT visit complete; elevated FBS; ordered Lantus 10 units at bedtime Last Assessment & Plan: Patient encouraged to check BG 4x daily and report via [email or web address] neto to M ADAPT. Had issues with Current Health due to work schedule. Blood pressure elevated without history of HTN 1 11/07/2022 Food insecurity 08/14/2023 Overview: Per [facility] Protocol Supervision of high risk in third trim guzman 08/08/2023 Last Assessment & Plan: growth and fluid appropriate for gestational age. All visualized anatomy appears normal. BLAKE (dyspnea on exertion) 06/26/2023 Bipolar disease during 06/09/2023 Overview: Reports bipolar. Denies SI/HI. Obtained counseling through [facility]. Last Assessment & Plan: No meds, no concerns reported today. 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 S/p valve repair and denies any further issues. Also reports history of SC. She had a negative heart catheterization at [...] in January 2023. She reports that her hematologist oncologist said she had PH, but that they [...] child born at 35 weeks. Was on [place] in previous pregnancies. Last Assessment & Plan: [...] patients who previously received 17P. Patient's primary CHEMICAL PRODUCTION TECHNICIAN can coordinate therapy if desired. For [...] by Date resolved Lack of housing Emergency nursing home resources given 11/02/2023 Mercedez Valente RN [...] Assessment & Plan: Planning ERCD History of SC (myocardial infarction) 07/27/2018 Overview: Age 27, s/p [...] in 10 months. Using medical marijuana through [employer] [facility] 01/14/2020 Angy Chase RN 01/14/2020 nutrition [...] Taken Date entered Entered by Date resolved [employer] breastpump form completed and faxed to [facility] for pt. 07/23/2020 Lisset Gonzalez RN [...] 4 dose (ActHib) 07/08/1992,,1991,06/04 HPV Vaccine, 4-Valent 07/14/2011,03/15/2011,0310/2010 HPV Vaccine, 9-Valent 07/14/2011,03/15/2011,12/01 Haemophilius B (HIB), [...] money to get more. Sometimes true 11/2022 [place] Depression Scale Answer Date Recorded [place] Depression Scale Total 9 11/02/2023 The thought [...] Info) Description 11/10/2023 8:30 AM EST Telemedicine Rn Labor And Delivery Obstetrics Maternal Medicine, [place] 190 [facility] [address] [place] [address] Rickie Kearns, [facility] 190 [facility] [address] [place] [address] 11/10/2023 9:15 AM EST Office Visit Gynecology/Obstetr ics [facility]an[facility]kerline [place] [address] [place] [address] Lesa Degroot PA-C [address] [place] [address] Raymon Non Stress Tests Jalen [address] [place] [address] 11/13/2023 8:30 AM EST Office Visit Gynecology/Obstetr ics Saundra Nogueiras [address] [place] [address] Marcellus Lira MD [address] [place] [address] Ray[place], Non Stress Tests Jalen [address] [place] [address] 11/14/2023 3:30 PM EST Telemedicine Nutrition, Jalen Nogueir[place] [address] [place] [address] Kassi Cole RDN [address] [place] [address] 11/17/2023 9:00 AM EST Office Visit Gynecology/Obstetr ics [facility] [place] [address] [place] [address] Marcellus Lira MD [address] [place] [address] Ray[place], Non Stress Tests Jalen [address] [place] [address] 11/20/2023 10:15 AM EST Office Visit Gynecology/Obstetr ics [facility] [place] [address] [place] [address] Shantelle Richmond CRNP [address] [place] [address] Ray[place], Non Stress Tests Jalen [address] [place] [address] 11/24/2023 3:30 PM EST Office Visit Rn Labor And Delivery Obstetrics Maternal Medicine, [place] [address] [place], [place] [id number] Cristino Garcia, [address] [place] [address] 11/24/2023 3:30 PM EST [facility] [address] [facility] [place] [address] 11/27/2023 5:10 PM EST [facility] [address] [facility], [place] [address] [facility] [address] [facility], [place] [address] 11/28/2023 8:30 AM EST Office Visit Gynecology/Obstetr ics Sa[facility]ra [place] [address] [place], [place] [address] Marcellus Lira MD [address] [place] [address] Raymon Non Stress Tests Jalen [address] [place] [address] 12/01/2023 9:00 AM EST Office Visit Gynecology/Obstetr ics [facility] [place] [address] [place] [address] Sharron Robertson CRNP [address] [place] [address] Raymon Non Stress Tests Jalen [address] [place] [address] 12/04/2023 11:00 AM EST Office Visit Gynecology/Obstetr ics [facility] [place] [address] [place] [address] Shantelle Richmond CRNP [address] [place] [address] Raymon Non Stress Tests Jalen [address] [place], [place] [address] 12/07/2023 9:45 AM EST Office Visit Gynecology/Obstetr ics [facility]anMounakerline [place] [address] [place] [address] Sharron Robertson CRNP [address] [place] [address] Raymon Non Stress Tests Jalen [address] [place] [address] 12/11/2023 9:00 AM EDT Office Visit Gynecology/Obstetr ics [place] [address] [place] [address] Marcellus Lira MD [address] [place] [address] 12/18/2023 11:48 AM EDT Hospital Encounter WLL1 [facility], Women's Lower Level 1st Floor [address] [facility] [place] [address] Keiry Loza, DO [address] [facility], [place] [address] 12/18/2023 11:48 AM EDT - 12/18/2023 2:00 PM EDT Surgery OBTR GM, OB Triage, Women's Lower Level 1st Floor [address] [facility] [place] [address] Keiry Loza, DO [address] [facility] [place] [address] DELIVERY AND CARE 12/21/2023 11:30 AM EDT Office Visit Gynecology/Obstetr ics Saundra [place] [address] [place] [address] Shantelle Richmond CRNP [address] [place] [address] 02/22/2024 10:45 AM EDT Office Visit Cardiology [facility] [address] [place] [address] Summer Cartagena CRNP [address] [place] [address] Scheduled Procedures Name Priority Associated [...] this encounter Medical Devices Implanted Type Area Hearse Driver Device Identifier Shelf Expiration Date Model / Serial / Lot Ring Triad [id number] - [id number] Implanted:Qty: 1 on 08/09/2016 by Suha Harding MD at [place] [facility] N/A: Heart [employer] 08/31/2019 [id number] / [id number] / [id number] documented as of this encounter Procedures Procedure Name Priority Date/Time Associated Diagnosis Comments CHEMISTRY-OUTSIDE Routine 11/08/2023 documented in this encounter Results * (ABNORMAL) CHEMISTRY-OUTSIDE (11/08/2023) Not all results display below - see scan for full detail OUTSIDE LAB (SEE SCANNED REPORT) Comment:SEE SCAN: DRUG PROFI LE,CMP, CBCD, UA,TROP 1 HS CREATININE-OUTSID E LAB 0.35(L) 0.6 - 1.2 MG/DL OUTSIDE LAB (SEE SCANNED REPORT) EGFR-OUTSIDE LAB 144.0 ML/MIN/1.7 3M2 OUTSIDE LAB (SEE SCANNED REPORT) POTASSIUM-OUTSIDE LAB 3.2(L) 3.5 - 5.1 MMOL/L OUTSIDE LAB (SEE SCANNED REPORT) GLUCOSE-OUTSIDE LAB 102(H) 70 - 99 MG/DL OUTSIDE LAB (SEE SCANNED REPORT) HOURS FASTING OUTSID E LAB (SEE SCANNED REPORT) TRIGLYCERIDES-OUT SIDE LAB OUTSIDE LAB (SEE SCANNED REPORT) CHOLESTEROL-OUTSI DE LAB OUTSIDE LAB (SEE SCANNED REPORT) HDL-OUTSIDE LAB OUTS JOAN LAB (SEE SCANNED REPORT) CHOL/HDL RATIO-OUTSIDE LAB OUTSIDE LA B (SEE SCANNED REPORT) LDL (CALCULATED)-OUTS JOAN LAB OUTSIDE LAB (SEE SCANNED REPORT) LDL (DIRECT MEASURE)-OUTSIDE LAB OUTSIDE LAB (SEE SCANNED REPORT) HEMOGLOBIN, [id number]-[id number] LAB OUTSIDE LAB (SEE SCANNED REPORT) PHOSPHORUS-OUTSID E LAB OUTSIDE LAB (SEE SCANNED REPORT) PTH-OUTSIDE LAB OUTS JOAN LAB (SEE SCANNED REPORT) MICROALBUMIN RATIO-OUTSIDE LAB OUTSIDE LA B (SEE SCANNED REPORT) PROTEIN, UA-OUTSIDE LAB OUTSIDE LAB (SEE SCANNED REPORT) HEMOGLOBIN-OUTSID E LAB 12.5 12.0 - 16.0 G/DL OUTSIDE LAB (SEE SCANNED REPORT) 11/08/2023 [facility]ron [facility] OUTSIDE LAB (SEE SCANNED REPORT) documented in this encounter Advance Directives Latest [...]
[2023-11-10 07:15] VITALS: BP 99/54; PULSE 63; RESP 19; TEMP 97.9; O2SAT 96
--- NOTE | 2023-11-10 08:02 | XRay Report ---
XR chest 1V portable CLINICAL HISTORY: Shortness of breath. COMPARISON STUDY: Chest CT November 08, 2023. Chest radiograph September 05, 2023. FINDINGS: There are median sternotomy wires. Lung volumes are normal. Lungs are clear. There is no pn eumothorax or pleural effusion. Cardiac size is normal. Mediastinal contours are normal. There is no evidence for pulmonary edema. IMPRESSION: No acute cardiopulmonary findings. ACT 112: Negative or not required by law. Electronically signed by: Adryan Ascencio M.D. 11/10/2023 8:01 AM
--- NOTE | 2023-11-10 08:47 | Obstetrical Progress Note ---
Date of Service November 10, 2023 Assessment & Plan Admission and Anticipated Discharge Date Admission Date: November 09, 2023 Subjective Patient feels much better She wants to go home No cts/ LOF/VB +FM NO CP/ SOB Eating well NST has been reactive She was cleared per cardiology and medicine for d/c Discussed when to call All questions were answered D/C home and f/u in office on 11/13 Results & Data Vital Signs (Past 12 Hours) Vital Signs Temp Pulse Pulse Resp BP Pulse Ox O2 Del Method 11/10/23 07:14 36.6 C 63 19 99/54 L 96 Room Air 11/10/23 02:30 36.8 C 79 20 96/59 L 97 Room Air 11/09/23 23:02 77 11/09/23 22:24 78 18 104/51 L 11/09/23 21:53 36.6 C 80 18 117/67 98 Room Air
--- NOTE | 2023-11-10 09:47 | Hospitalist Progress Note ---
Date of Service November 10, 2023 Assessment & Plan (1) Atypical chest pain: (2) History of [place] (myocardial infarction): (3) Anxiety: (4) Tobacco abuse: (5) Asthma: (6) Bipolar disorder: (7) S/P tricuspid valve repair: (8) History of pulmonary embolism: (9) 33 weeks gestation of : (10) Gestational diabetes mellitus: Plan Pt is a [id number], 33 weeks female with PMHx significant for prior history of [place], Hx of IV drug abuse on suboxone, h/o tricuspid valve endocarditis s/p RV repair in 2015, bipolar disorder, PTSD, asthma, Hx of PE on Lovenox, tobacco and medical marijuana use, gestational DM who presented with contractions and decreased movements. She subsequently developed chest pain on 11/08 for which the hospitalist service was consulted. Atypical chest pain , 33 weeks On exam stated that chest pain started 1 hr ago, achy, constant, 4/10 in center of chest, radiates to shoulder blades, worse with sitting up, no associated SOB. Hx of GERD on prilosec. Significant cardiac Hx including Hx of infective endocarditis s/p tricuspid valvuloplasty Also Hx of PE currently on Lovenox. Currently denies lower extremity redness, tenderness or swelling Follows with [facility] more frequently while especially at this stage. Per chart review, had a recent echo that noted mild pulm HTN, no right heart cath recommended while . Follows with [facility] [place] cardiology locally annually. EKG on floor- NSR, hs-trop not elevated x3 Echo noting EF 60-65%, LV and RV dilation, mild to mod tricuspid regurgitation, annuloplasty ring, increased R ventricular pressure Cardiology consulted, appreciate further recs -will defer on d-dimer as pt currently on anticoagulation and d-dimer can be elevated in -CTA PE protocol ordered by Cardiology- no acute acute central PE noted, but notes suboptimal contrast -per Cardiology Dr Redd based on echo, as pressures lower and trop normal, it argues against a hemodynamically significant PE. -In setting of above, repeat CT chest deferred Continue Lovenox 40mg SQ Telemetry monitoring 33 Weeks Gestation Decreased Movement Contractions Pt presenting with concern for decreased movement and noted contractions movements currently present, resolved without intervention Pt currently on nifedipine and terbutaline for tocolytic therapy for contractions -continue, per OB and Cardiology Continue with monitoring per OB Continue vitamin Continue valacyclovir prevention/suppressive therapy Anxiety Pt states that she is currently treating with medical marijuana at home last used 2 days ago Requesting treatment on 11/09 Case discussed with Psychiatry Dr Arboleda -advised prn hydroxyzine (Atarax) and starting the SSRI Sertraline which can be used in , for nursing home management -advised not using benzos Case discussed with pt's OB, Dr Huerta who is in agreement -also recommended due to pt's high fundus, having her sit in a chair more frequently/sitting up to help with the feeling of having a panic attack -recommended starting a nicotine patch which is ok in as pt might be withdrawing and feeling more anxious as a result Discussed with pt, previously noted that hydroxyzine was like taking "skittles" for her but in agreement with a trial Pt started on hydroxyzine 25mg q8h and started on sertraline 25mg daily while hospitalized. Consider uptitration dose of Sertraline after 1 week Encourage meditation, deep breathing and other relaxation techniques With persistent/ increasing anxiety, consider psychiatry consult Recommend discharge with sertraline 25mg daily with close pcp and psychiatry followup for further dose titration as needed. Consider discharge with PRN Atarax and nicotine patch as well. PTSD Bipolar Disorder Pt on medical marijuana Will need close PCP/Psychiatry follow up after discharge Hypokalemia Replete as needed Gestational DM Glucose level mildly elevated at 102 hgba1c of 5.1 Continue insulin glargine 10U qhs per primary team Hx of PE Chest CTA from Aug 2023 noting chronic PE Repeat CTA PE protocol as above ordered by Cardiology Continue Lovenox 40mg SQ Hx of IV drug use Reportedly last use in 2018 Continue subutex 0.5mg BID Asthma Continue flovent inhaler GERD Continue pantoprazole Tobacco use Encourage cessation CODE STATUS: Full code DVT prophylaxis: On Lovenox 40mg SQ Diet: OB diet Dispo: per primary team Thank you for this consultation. Hospital Medicine will sign off at this time. You can reach a member of the [facility] Hospitalist Team 24/04 via the hospitalist role on tiger text for any further questions. Admission and Anticipated Discharge Date Admission Date: November 09, 2023 Subjective Pt stated that she was feeling better. Especially since she was told earlier that she was going home. Notes that she feels like the anxiety meds ordered were helping. Review of Systems Review of Systems: All systems reviewed & are unremarkable except as noted in Subjective Physical Exam Physical Exam: General: Alert, oriented. No acute distress Skin: surgical scar noted on anterior chest wall Psych: Appropriate mood and affect Neuro: No gross deficits HEENT: NC/AT Chest: Nontender to palpation. CV: RRR Resp: Breath sounds clear bilaterally, no increased effort of breathing. No crackles/rhonchi/rales. Abdomen: Soft, gravid Extremities: No edema in lower extremities bilaterally. No calf tenderness Results & Data Results & Data Vital Signs (Past 12 Hours) Vital Signs Temp Pulse Pulse Resp BP Pulse Ox O2 Del Method 11/10/23 09:20 36.6 C 63 19 99/54 L 96 11/10/23 07:14 36.6 C 63 19 99/54 L 96 Room Air 11/10/23 02:30 36.8 C 79 20 96/59 L 97 Room Air 11/09/23 23:02 77 11/09/23 22:24 78 18 104/51 L 11/09/23 21:53 36.6 C 80 18 117/67 98 Room Air Diagnostic Findings Chest CTA 11/08/23 19:54 Exam(s): CTA CHEST IV Amt: 118 cc opti 320 EXAM: CT Angiography Chest With Intravenous Contrast CLINICAL HISTORY: Reason for exam: chest pain, pulmonary embolism protocol. TECHNIQUE: Axial computed tomographic angiography images of the chest with intravenous contrast. Automated exposure control was utilized for the study. A dose lowering technique was utilized adhering to the principles of ALARA. MIP reconstructed images were created and reviewed. COMPARISON: No relevant prior studies available. FINDINGS: Pulmonary arteries: No large or central pulmonary embolism. Evaluation is limited due to suboptimal contrast bolus timing. The need for repeat exam should be determined clinically. Aorta: No acute findings. No thoracic aortic aneurysm. Lungs: Mild scarring/atelectasis at the lung bases. No mass. Pleural space: Unremarkable. No significant effusion. No pneumothorax. Heart: Unremarkable. No cardiomegaly. No significant pericardial effusion. No evidence of RV dysfunction. Bones/joints: Sternotomy wires. No acute fracture. No dislocation. Soft tissues: Unremarkable. Lymph nodes: Unremarkable. No enlarged lymph nodes. IMPRESSION: No central pulmonary embolism. Evaluation is severely limited due to suboptimal contrast bolus timing. Consider repeat exam. Electronically signed by: Yon Mares MD 11/08/23 21:10 PM Venous Doppler Study 11/09/23 08:18 BILATERAL LOWER EXTREMITY VENOUS DOPPLER HISTORY: Acute pain and swelling of the right lower leg DVT COMPARISON STUDY: 06/19/2020. FINDINGS: There is normal compressibility, flow, and augmentation within the bilateral lower extremity deep venous systems. IMPRESSION: No DVT within the right or left lower extremity. ACT 112: Negative or not required by law. Electronically signed by: Elliott Camp M.D. 11/09/2023 12:26 PM Chest X-Ray 11/09/23 19:44 XR chest 1V portable CLINICAL HISTORY: Shortness of breath. COMPARISON STUDY: Chest CT November 08, 2023. Chest radiograph September 05, 2023. FINDINGS: There are median sternotomy wires. Lung volumes are normal. Lungs are clear. There is no pneumothorax or pleural effusion. Cardiac size is normal. Mediastinal contours are normal. There is no evidence for pulmonary edema. IMPRESSION: No acute cardiopulmonary findings. ACT 112: Negative or not required by law. Electronically signed by: Adryan Ascencio M.D. 11/10/2023 8:01 AM (5) Asthma Asthma complication type: unspecified Asthma persistence: unspecified Asthma severity: unspecified severity Qualified Code(s): J45.909 - Unspecified asthma, uncomplicated
--- NOTE | 2023-11-10 10:28 | Electrocardiogram Report ---
Test Reason : Blood Pressure : / mmHG Vent. Rate : 084 BPM Atrial Rate : 084 BPM P-R Int : 142 ms QRS Dur : 092 ms QT Int : 376 ms P-R-T Axes : 071 042 012 degrees QTc Int : 444 ms Normal sinus rhythm Left atrial enlargement Incomplete right bundle branch block Nonspecific T wave abnormality Inferior leads Abnormal ECG When compared with ECG of 08-NOV-2023 20:11, No significant change was found Confirmed by Ravin Redd ([id number]) on 11/10/2023 10:28:07 AM Referred By: Jaycee Chacon Confirmed By:Ravin Redd
[2023-11-11 13:12] LABS: Marijuana Quant, GCMS Urine 1215 ng/mL (<5)
--- NOTE | 2023-11-14 01:48 | Discharge Summary ---
Date of Service November 14, 2023 Admission HPI Per Admitting Provider Late entry from 2 PM. Patient is a 33-year-old -1-0-3 at 33 weeks and 4 days of gestation who presented to labor and delivery with decreased movement started about an hour ago. She started to have contractions on the way here. She feels them every 3 to 4 minutes and painful. She was put on the monitor and had a reactive NST and she started to feel movements. She states baby has been moving normally and yesterday and this morning and then was quiet for about an hour or so and then started to move as normal. She was in the office yesterday for NST it was reactive and she had 3 contractions in 20 minutes per nursing team. She was not feeling them yesterday and she was not checked. She denies leakage of fluid or vaginal bleeding. She denies fever chills, abdominal pain between contractions, problems with urination, chest pain shortness of breath, headache change in her vision. Her has been complicated by, 1. History of 2 prior C-sections, 2. History of cardiac surgery, repair of tricuspid valve in 2016 for infected well from IV drug use, 3. 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 Current marijuana use, has a medical card, 5. GDM A2, gestational diabetes, started on insulin 10 units a day, 6. Asthma during , 7. Smoker, 8. History of anxiety, PTSD, 9. History of PE, on Lovenox Discharge Data Consultations 11/08/23 17:20 Consult Hospitalist Stat 11/08/23 18:33 Consult Cardiology Routine Hospital Course (1) Gestational diabetes mellitus: (2) Decreased movement affecting management of mother, antepartum: (3) 33 weeks gestation of : (4) uterine contractions in third trimester, antepartum: Patient is a 34-year-old -1-0-3 at 33 weeks and 4 days of gestation who presented to labor and delivery with decreased movements and contractions on November 08, 2023. After she was placed on the monitor she started to feel movements as normal with multiple clicks. She was having contractions every 2 to 3 minutes and she was feeling them as painful. Her cervix was checked and found to be closed, thick and posterior. She was given IV fluids and a dose of terbutaline injection to stop the co ntractions. Contractions spaced out for a while and then started back again. She was started on Procardia 10 mg p.o. followed by 30 mg XL. Contractions spaced out but she was still feeling them every 5 to 6 minutes and they were still painful for her. Her cervix was checked again and it was closed with no change. Meanwhile she started to have chest pain in the middle of sternum radiating to her shoulder blades. Stat EKG was 1 which was normal, her vital signs were stable, her pulse ox was 100% on room air. We called hospitalist and cardiology for consult. Cardiology came and saw her, ordered troponin levels x 2 which were normal and repeat EKG which was again normal. Recommended to be on telemetry and observe overnight by cardiology. She was taken to the second floor PCU for telemetry. Her cardiac rhythm was within normal limits, sinus rhythm with normal rate. Her chest pain resolved over time but she continued to have contractions. I checked her cervix multiple times and it was closed. She was given more terbutaline and p.o. Procardia per cardiology input and contractions spaced out. She also had CT of chest to rule out PE and echocardiogram. They were within normal limits. She was observed another day and treated for anxiety by hospitalist. On the morning of November night she was doing much better, vital signs stable afebrile, Denied chest pain, shortness of breath, contractions, leakage of fluid, vaginal bleeding. heart rate had been reactive, category 1. She desired to be discharged on hospital day #3. Discharge instructions were given, prescriptions were written for Procardia XL. She is to be seen in office for follow-up. All questions were answered. (5) Atypical chest pain:
== END 2023-11-10 10:01 | disposition home or self-care (01) | DRG 832 ==
LOC: OPB 13:08 → 4S1 13:10 → 2E 22:24
DX: R07.89 Other chest pain; F11.20 Opioid dependence, uncomplicated; O26.893 Other specified pregnancy related conditions, third trimester; O36.8130 Decreased fetal movements, third trimester, not applicable or unspecified; O09.893 Supervision of other high risk pregnancies, third trimester; Z98.890 Other specified postprocedural states; Z86.711 Personal history of pulmonary embolism; O99.283 Endocrine, nutritional and metabolic diseases complicating pregnancy, third trimester; Z88.1 Allergy status to other antibiotic agents; F41.9 Anxiety disorder, unspecified; O99.333 Smoking (tobacco) complicating pregnancy, third trimester; F31.9 Bipolar disorder, unspecified; O99.52 Diseases of the respiratory system complicating childbirth; O99.323 Drug use complicating pregnancy, third trimester; E87.6 Hypokalemia; K21.9 Gastro-esophageal reflux disease without esophagitis; Z82.49 Family history of ischemic heart disease and other diseases of the circulatory system; O99.613 Diseases of the digestive system complicating pregnancy, third trimester; Z88.2 Allergy status to sulfonamides; F17.200 Nicotine dependence, unspecified, uncomplicated; Z3A.33 33 weeks gestation of pregnancy; B19.20 Unspecified viral hepatitis C without hepatic coma; O24.414 Gestational diabetes mellitus in pregnancy, insulin controlled; O60.03 Preterm labor without delivery, third trimester; O99.343 Other mental disorders complicating pregnancy, third trimester; Z79.51 Long term (current) use of inhaled steroids; Z79.899 Other long term (current) drug therapy; Z79.01 Long term (current) use of anticoagulants; O98.413 Viral hepatitis complicating pregnancy, third trimester; F43.10 Post-traumatic stress disorder, unspecified; J45.909 Unspecified asthma, uncomplicated; O99.413 Diseases of the circulatory system complicating pregnancy, third trimester; I25.2 Old myocardial infarction